=== PATIENT | female | born 1965 | race Caucasian/White ===

== ENCOUNTER 2018-05-03 15:06 | Emergency (ER) | payer SELFPAY ==
[2018-05-03 15:06] VITALS: BP 167/116; PULSE 101; RESP 22; TEMP 36.7; O2SAT 97; BMI 27.0
[2018-05-03 15:17] VITALS: RESP 18
[2018-05-03] MEDS: fentaNYL 100 MCG/2 ML Ampul 25 MCG IV (15:44)
[2018-05-03] MEDS: proMETHazine 25 MG/ML Syringe 12.5 MG IV (15:44)
[2018-05-03] MEDS: 0.9% Normal Saline 1,000 ML 999 ML IV (15:44)
--- NOTE | 2018-05-03 15:47 | ED.VISSUMM ---
- ER Visit Summary Date of Service: 05/03/18 Chief Complaint: Headache History of Present Illness: The patient is a 52 F with a history of migraines. Patient reports tightness and squeezing-like headache to the left side of her head over the past 3 days. This is similar to her prior migraines. Usually Fioricet will help but was not relieved this time. Patient recently relocated to the area does not have a primary care physician. Patient has a history of pancreatitis and cervical cancer. She is allergic to anti-inflammatories including aspirin, Toradol, and NSAIDs. Physical Examination: Vital signs significant for blood pressure 167/116, otherwise unremarkable. Patient sitting upright in a dark room. She is in no acute distress. Head neck examination reveals dry regular rate and rhythm. Lungs sounds are with mild wheezing. Abdomen is soft nontender. Neuro exam is unremarkable with no focal deficits. Test Results: [] Emergency Department Course and Treatment: Patient was given a liter IV fluids along with a dose of Phenergan and a small dose of fentanyl. On repeat examination patient feels significantly improved. Blood pressure is 150/99. Patient will be referred to Dr. Vasquez as she wishes to follow-up with someone from the [facility] locally. Treatment Plan: [] Disposition: Discharge Impression: Migraine, improved This note was generated with [employer] dictation software. It may contain incorrect words, spelling, and punctuation that were not noted in review of the chart prior to signing ED Disposition - Plan for ED Patient: Chief Complaint: Headache Referrals: Care Physician,No Primary [Primary Care Provider] -
--- NOTE | 2018-05-03 16:40 | ED.DEP ---
ED Disposition - Plan for ED Patient: Disposition: Home or Assisted Living Chief Complaint: Headache Instructions: ED Headache Migraine Referrals: Lea Vasquez MD [STAFF PHYSICIAN] - As Needed
--- NOTE | 2018-05-03 16:43 | ED.DEP ---
ED Disposition - Plan for ED Patient: Disposition: Home or Assisted Living Chief Complaint: Headache Instructions: ED Headache Migraine Prescriptions: Acetaminophen/Butalbital/Caffe [Fioricet] 1 tablet PO Q4H PRN PRN #10 tablet PRN Reason: Migraine Symptoms Referrals: Lea Vasquez MD [STAFF PHYSICIAN] - As Needed
[2018-05-03 17:02] VITALS: PULSE 84; RESP 18; O2SAT 98
== END 2018-05-03 17:02 | disposition home or self-care (01) ==
PROVIDERS: Emergency Provider Emergency Medicine
DX: G43.909 Migraine, unspecified, not intractable, without status migrainosus (principal); R06.2 Wheezing; Z72.0 Tobacco use; Z79.899 Other long term (current) drug therapy; Z85.41 Personal history of malignant neoplasm of cervix uteri; Z87.19 Personal history of other diseases of the digestive system
CPT/HCPCS: 96361; 96374; 96375; 99284; J7030; A4216

== ENCOUNTER 2019-08-11 16:44 | Emergency (ER) | payer MEDICAID, SELFPAY ==
[2019-08-11 16:45] VITALS: BP 159/114; PULSE 86; RESP 19; TEMP 36.1; O2SAT 95; BMI 29.3
--- NOTE | 2019-08-11 17:09 | EKG12_ITS ---
Test Reason : CP Blood Pressure : / mmHG Vent. Rate : 077 BPM Atrial Rate : 077 BPM P-R Int : 160 ms QRS Dur : 138 ms QT Int : 406 ms P-R-T Axes : 079 080 138 degrees QTc Int : 459 ms Sinus rhythm with Premature supraventricular complexes Left bundle branch block Abnormal ECG Confirmed by UZIEL GARZA ([id number]), film and video editor COLLEEN LR ([id number]) on 08/13/2019 10:13:24 AM Referred By: ED Confirmed By:UZIEL GARZA
--- NOTE | 2019-08-11 17:40 | RAD_ITS ---
STUDY: X-RAY CHEST REASON FOR EXAM: Female, 53 years old. Chest pain TECHNIQUE: Frontal view of the chest COMPARISON: None. FINDINGS: There is a calcified granuloma noted in the right lower lobe. The lungs are are otherwise clear. There are no pleural effusions. There is no pneumothorax. The heart is normal in size. The visualized osseous structures are within normal limits. RAD/Chest 1 View (Portable) IMPRESSION: No acute thoracic pathology. Electronically Signed: Emery العلي, at 17:51 EDT Tel , Service support ,
[2019-08-11 17:43] LABS: Absolute Lymphocyte Count 2.89 X10^3/uL (0.83-4.51); Absolute Neutrophil Count 3.6 X10^3/uL (2.0-7.7); Basophil# 0.04 X10^3/uL; Basophil% 0.6 % (0-1); Eosinophil# 0.07 X10^3/uL; Hematocrit 38.8 % (37-47); Lymphocyte # 2.89 X10^3/ul (4.0); Mean Corp Hgb Conc 33.5 g/dL (32-36); Mean Corpuscular Volume 95.6 fL (81-99); Mean Platelet Vol. 9.8 fl (6.2-12.0); Monocyte# 0.48 X10^3/uL; Monocyte% 6.8 % (0-10); NRBC Flagged by Analyzer 0 % (0-5); Neutrophil # 3.56 X10^3/uL (2.7-7.7); Neutrophil % 50.5 % (47-70); Platelet Count 246 K/mm3 (150-450); RBC Distribution Width CV 13.5 % (11.6-14.6); RBC Distribution Width SD 47.4 fl (35.1-43.9); Red Blood Count 4.06 M/mm3 (4.2-5.4); White Blood Count 7.1 K/mm3 (4.4-11.0)
[2019-08-11 18:01] LABS: Anion Gap 3 (5-15); BUN 9 mg/dL (7-18); BUN/Creat Ratio 12.6 RATIO (10-20); Calcium,Total 8.8 mg/dL (8.5-10.1); Chloride 113 mmol/L (98-107); Creatinine, Serum 0.72 mg/dL (0.55-1.02); EST Glomerular Filtration Rate 91 mL/min (>60); Est Glom Filt Rate - Afr Amer 110 mL/min (>60); Estimated Creatinine Clearance 85.56 ml/min; Glucose 98 mg/dL (74-106); Potassium 3.9 mmol/L (3.5-5.1); Sodium Level 142 mmol/L (136-145)
--- NOTE | 2019-08-11 18:42 | ED.VISSUMM ---
- ER Visit Summary Date of Service: 08/11/19 Chief Complaint: Chest pain History of Present Illness: The patient is a 53 F who presents with chest pain that began yesterday. Patient states it is gradually gotten worse. Patient describes the pain is sharp. Patient states the pain is over the left chest under her left breast. Patient states the pain goes to her left scapular area. Patient states nothing makes it better or worse. Patient admits to some nausea but denies any vomiting. Patient denies any shortness of breath or cough. Patient does admit to some diaphoresis and palpitations. Patient denies any lightheadedness or dizziness. Patient is a smoker and has a history of hypertension. Patient denies any PE risk factors. Physical Examination: Vital signs are stable. Patient is afebrile. Patient is in no acute distress. Oral mucosa is pink and moist. Neck is supple. Trachea is midline. There is no JVD noted. Heart was regular rate and rhythm. Lungs are clear and equal bilaterally. Abdomen is soft. Bowel sounds are normal. There is no tenderness. There is no rebound or guarding noted. Skin is warm dry. Cranial nerves II through XII are intact. There are no focal motor or sensory deficits noted. Extremities are intact. There is no calf tenderness or edema. Test Results: EKG showed a normal sinus rhythm with a rate of 77. There are occasional PACs noted. There is a left bundle branch block noted. There are no prior EKGs available for comparison. CBC, basic metabolic profile, and troponin were obtained were all within normal limits. Portable chest x-ray was obtained. There is no acute cardiopulmonary process. This was interpreted by the radiologist and myself. Emergency Department Course and Treatment: Patient was given injection of morphine here. Patient was feeling better on reevaluation. Patient was not given aspirin due to her aspirin allergy. Patient has a JOHN risk score of 0 and a HEART score of 3. Patient was advised that this is low risk for acute cardiac event. Patient was instructed to follow-up with her primary care physician in 5 to 7 days. Patient was instructed return if worse in any way. Patient understood and was agreeable with the plan. All questions were answered. Disposition: Discharge home Impression: Chest pain This note was generated with [employer] dictation software. It may contain incorrect words, spelling, and punctuation that were not noted in review of the chart prior to signing ED Disposition - Plan for ED Patient: Disposition: Home or Assisted Living Diagnosis: Chest pain Instructions: ED Chest Pain Atypical Unkn Cause Prescriptions: Hydrocodone Bitart/Apap 5-325 [[place] 5MG-325MG] 1 tab PO Q6H PRN PRN 3 Days #10 tab PRN Reason: Pain Prescription Printed Referrals: Florecita Nash DO [Primary Care Provider] - 5-7 Days
[2019-08-11 18:58] VITALS: BP 144/104; PULSE 80; RESP 16
[2019-08-11 18:59] VITALS: O2SAT 97
[2019-08-11 19:00] VITALS: BP 144/104; PULSE 80; RESP 16; O2SAT 97
[2019-08-11 19:05] VITALS: BP 144/104; PULSE 80; RESP 16; O2SAT 97
[2019-08-11] MEDS: Morphine 4 MG/ML Syringe IV (19:14)
== END 2019-08-11 19:33 | disposition home or self-care (01) ==
PROVIDERS: Emergency Provider Emergency Medicine; PCP Family Medicine
DX: R07.9 Chest pain, unspecified (principal); I10 Essential (primary) hypertension; K21.9 Gastro-esophageal reflux disease without esophagitis; F17.200 Nicotine dependence, unspecified, uncomplicated; Z88.6 Allergy status to analgesic agent
CPT/HCPCS: 71045; 80048; 84484; 85025; 93005; 96374; 99284; A4216

== ENCOUNTER 2020-09-15 01:16 | Inpatient (IN) | payer MEDICAID, SELFPAY ==
[2020-09-15] VITALS (60 sets, daily range): BP systolic 61–139; BP diastolic 11–107; PULSE 69–154; RESP 15–47; TEMP 36.7–38.1; O2SAT 70–99; BMI 31.8
[2020-09-15] MEDS: Etomidate 20 MG/10 ML Vial IV (01:20)
--- NOTE | 2020-09-15 01:27 | EKG12_ITS ---
Test Reason : Blood Pressure : / mmHG Vent. Rate : 143 BPM Atrial Rate : 070 BPM P-R Int : 000 ms QRS Dur : 142 ms QT Int : 368 ms P-R-T Axes : 000 097 -20 degrees QTc Int : 567 ms Wide QRS tachycardia Possibly Sinus with non specific intraventricular conduction delay Rightward axis Non-specific intra-ventricular conduction block Abnormal ECG Confirmed by LACI ELDER, KENIA ([id number]), tape editor JOSE EDUARDO VIVAS ([id number]) on 09/16/2020 11:41:49 A M Referred By: SELAM Confirmed By:LATOYA AGUERO MD
--- NOTE | 2020-09-15 01:27 | RAD_ITS ---
STUDY: X-RAY CHEST REASON FOR EXAM: Female, 54 years old. sob, ETT placement TECHNIQUE: Single AP portable view of the chest. COMPARISON: None. FINDINGS: The endotracheal tube has the tip approximately 3.7 cm above tatiana. The nasogastric tube has the tip at the level of the gastric antrum. The lungs are normally expanded with diffuse airspace opacities consistent with pulmonary edema versus diffuse pneumonia. There is a small nodule at the right lung base incompletely characterized and measuring 0.8 cm. This could represent a small calcified granuloma. There is no demonstrated pleural abnormality. Oral and cardiomegaly. Normal mediastinum and dinesh. There is atherosclerotic calcification of the aortic arch with tortuosity. Normal visualized thoracic spine. Normal visualized ribs, clavicles, and shoulders. There is no demonstrated abnormality of the visualized soft tissue structures of the upper abdomen. RAD/Chest 1 View (Portable) IMPRESSION: Findings suggestive of pulmonary edema versus diffuse pneumonia. Questionable nodular the right lung base as described. Recommend follow-up with serial x-ray on September to better visualize a nodule. If persistent, recommend further evaluation with CT chest. Electronically Signed: Ramona Mclaughlin MD at 2:40 EDT , Service support ,
--- NOTE | 2020-09-15 01:29 | ED.VIS.DYS ---
HPI History of Present Illness Chief Complaint: Chest Pain Informant: patient and EMS Limited: other (Acuity/condition) Onset/Context/Timing Onset: Days (several) Context: gradual Timing: Continuous Quality: Positive for - (can't breathe) Current Severity: Severe Maximum Severity: Severe Worsened by: Exertion and Coughing Relieved by: Nothing (despite rest, oxygen, albuterol) Associated Symptoms cough Chest Pain: Positive for Tightness Narrative Narrative: Patient with worsening COPD symptoms over the last several days, she is a 5 pack/day smoker according to EMS, they were concerned that she was very tachycardic with a wide-complex, but P waves present, low blood pressure 80/40 and mottled lower extremities, not tolerating BiPAP that they tried in route. Later, provides history that she went to a different emergency department earlier this morning for hemorrhoids and was not really having major respiratory issues, but rather just prior to arrival here, she walked to the bathroom and suddenly became severely dyspneic and diaphoretic, much worse than she had been for the last couple days. He states that she is not a 5 pack/day smoker, but only about half a pack per day. PFSH PFSH Medical History Constipation COPD (chronic obstructive pulmonary disease) COPD with asthma History of cervical cancer History of pancreatitis HLD (hyperlipidemia) HTN (hypertension) Obesity Tobacco use Home Medications albuterol sulfate 2 puff INHALATION Q4H PRN PRN 09/15/20 [History Last Taken Unknown] ondansetron HCl [Zofran] 4 mg PO Q8H PRN 09/15/20 [History Last Taken Unknown] Allergy/AdvReac Type Severity Reaction Status Date / Time ketorolac [From Toradol] AdvReac NEEDS Verified 09/15/20 02:44 FOLLOW-UP Family History (Updated 09/15/20 @ 02:[address] Krissy Hobbs MD) Mother Heart disease Hypertension Diabetes Father Heart disease Surgical History (Updated 09/15/20 @ 02:[address] Krissy Hobbs MD) H/O: hysterectomy S/P cholecystectomy Social History (Updated 09/15/20 @ 02:[address] Krissy Hobbs MD) household members: spouse Smoking Status: Current every day smoker tobacco type: cigarettes Smoking packs per day: 0.5 Smoking cigarettes per day: 10.0 Years smoked: 40 Smoking pack-years: 20.00 alcohol intake: never substance use type: does not use ROS ROS ED Review of Systems ROS Unobtainable: other Details: Due to acuity, respiratory distress --ROS very limited Cardiovascular Cardiovascular: Reports chest pain Respiratory/Chest Respiratory/Chest: Reports cough and dyspnea EXAM Physical Exam Const Vital Signs: 09/15/20 01:18 09/15/20 01:22 09/15/20 01:30 Temperature 98.7 F Temperature Source Temporal Pulse Rate 154 H 144 H 147 H Respiratory Rate 42 H 16 47 H Respiratory Pattern Normal Blood Pressure 139/11 H 129/101 H Blood Pressure Mean 53 110 Pulse Ox 97 92 92 Oxygen Delivery Method Ambu-Bag Mechanical Ventilator Room Air Oxygen Flow Rate (L/min) 15 Fraction of Inspired Oxygen (FIO2) 50 09/15/20 01:35 09/15/20 01:54 09/15/20 01:55 Temperature 98.0 F Temperature Source Temporal Pulse Rate 140 H Respiratory Rate 16 Respiratory Pattern Blood Pressure 128/107 H Blood Pressure Mean 114 Pulse Ox 92 92 Oxygen Delivery Method Mechanical Ventilator Mechanical Ventilator Oxygen Flow Rate (L/min) Fraction of Inspired Oxygen (FIO2) 60 70 Positive well nourished and well developed General Appearance ED: well developed and in distress Positive for severe and respiratory Orientation / Consciousness: awake, oriented to person, oriented to place and oriented to time HEENT Reports dry mucous membranes normocephalic and atraumatic Mouth ED: Yes dry mucous membranes Mouth: dry mucous membranes Eyes PERRL and EOMs intact bilaterally Neck full ROM, no lymphadenopathy, supple and no JVD Resp Effort and Inspection: symmetric chest movement, respiratory distress, retractions intercostal, subcostal and supraclavicular and other Asking for help, speaking in one-word sentences, agreeable to intubation ; Negative for able to speak in complete sentences Auscultation: diminished lung sounds diffuse; Negative for rales or rhonchi Cardio regular rate, regular rhythm and no murmurs Cardio Narrative: 1+ bilateral radial pulses, thready dorsalis pedis pulses but palpable, with light mottling in both lower extremities to the waist. Rate: tachycardic GI non-tender and non-distended Auscultation: normoactive bowel sounds Palpation: soft Back/Spine no CVA tenderness General Back: other FROM Extremity normal to inspection General Extremety ED: Negative for edema, pulses abnormal or tenderness General Extremity: Negative for edema or pulses abnormal Neuro oriented x3, CN's II-XII intact bilaterally and no sensory deficits noted Sensorium / Orientation: awake and alert Motor Exam: strength 5/5 throughout Psych Mood & Affect: anxious Skin no rashes or lesions noted and no wounds MDM MDM MDM Narrative Medical decision making narrative: Patient in severe respiratory distress with some signs of shock, she was intubated emergently after pretreatment/RSI with etomidate 20 mg and succinylcholine 100 mg. She was preoxygenated. There were no complications. She did appear to have some mottling in her legs, but directly after the procedure this resolved and her blood pressure was reading 130's systolic, so fluids were given gently. When chest x-ray was finally performed, on my interpretation one-view portable shows good ETT placement and what appears to be pulmonary edema on top of COPD. Therefore the fluids were held and she was given Lasix 40 mg IV, her pressure continues to be good, and her heart rate fast. Prior to this, we did perform synchronized cardioversion given the possibility that she is in ventricular tachycardia, EKG showing wide complex tachycardia difficult to appreciate any P waves, and the patient initially was registered under the wrong last name because we did not know how to spell it correctly, and we did not have any old EKG on the patient. The cardioversion did not change the patient's rhythm, therefore it is less likely that she is in ventricular tachycardia and more likely she has a pre-existing aberrancy and she is currently tachycardic because of the cardiopulmonary process that is giving her symptoms. Since she recently was hypotensive, we chose to allow her tachycardia given that it may be her compensatory mechanism to keep her from going into shock at this time. Her tachycardia gradually improved to around 130, her blood pressure remained stable throughout the ED visit despite putting her on propofol for sedation and holding IV fluids when diuretics were ordered. She was also given empiric antibiotics given her lactic acidosis and the differential including infection, to cover for the possibility of pneumonia superimposed on COPD/CHF. Will be admitted to the ICU in serious condition. Lab Data Attestation: I reviewed the patient's lab results. Labs: Laboratory Results - last 24 hr 09/15/20 09/15/20 09/15/20 01:30 01:30 01:30 WBC 13.6 H RBC 3.95 L Hgb 13.0 Hct 41.8 MCV 105.8 H MCH 32.9 H MCHC 31.1 L RDW Std Deviation 50.6 H RDW Coeff of Tony 12.8 Plt Count 243 MPV 11.6 Immature Gran % (Auto) 1.000 H Neut % (Auto) 27.8 L Lymph % (Auto) 65.1 H Carter % (Auto) 4.8 Eos % (Auto) 0.7 Baso % (Auto) 0.6 Absolute Neuts (auto) 3.8 Absolute Lymphs (auto) 8.83 H Nucleated RBC % 0 Differential Comment SCANNED PT 13.6 INR 1.1 APTT 30.6 Sodium 138 Potassium 4.6 Chloride 106 Carbon Dioxide 20.0 L Anion Gap 12 BUN 17 Creatinine 1.29 H Estim Creat Clear Calc 45.38 Est GFR (MDRD) Af Amer 55 L Est GFR (MDRD) Non-Af 46 L BUN/Creatinine Ratio 13.2 Glucose 371 H Lactic Acid Calcium 8.1 L Total Bilirubin 0.30 AST 126 H ALT 78 H Alkaline Phosphatase 109 Troponin I 0.023 B-Natriuretic Peptide Total Protein 6.5 Albumin 3.2 Globulin 3.3 Albumin/Globulin Ratio 1.0 Urine Color Urine Clarity Urine pH Ur Specific [place] Urine Protein Urine Glucose (UA) Urine Ketones Urine Occult Blood Urine Nitrite Urine Bilirubin Urine Urobilinogen Ur Leukocyte Esterase Urine RBC Urine WBC Ur Squamous Epith Cells Ur Transition Epith Cell Amorphous Sediment Urine Bacteria Fine Granular Casts Urine Mucus 09/15/20 09/15/20 09/15/20 01:30 01:30 01:55 WBC RBC Hgb Hct MCV MCH MCHC RDW Std Deviation RDW Coeff of Tony Plt Count MPV Immature Gran % (Auto) Neut % (Auto) Lymph % (Auto) Carter % (Auto) Eos % (Auto) Baso % (Auto) Absolute Neuts (auto) Absolute Lymphs (auto) Nucleated RBC % Differential Comment PT INR APTT Sodium Potassium Chloride Carbon Dioxide Anion Gap BUN Creatinine Estim Creat Clear Calc Est GFR (MDRD) Af Amer Est GFR (MDRD) Non-Af BUN/Creatinine Ratio Glucose Lactic Acid 7.6 H* Calcium Total Bilirubin AST ALT Alkaline Phosphatase Troponin I B-Natriuretic Peptide 1175.0 H Total Protein Albumin Globulin Albumin/Globulin Ratio Urine Color Yellow Urine Clarity Cloudy Urine pH 6.0 Ur Specific [place] 1.020 Urine Protein 500 H Urine Glucose (UA) 1000 H Urine Ketones Negative Urine Occult Blood 250 H Urine Nitrite Negative Urine Bilirubin Negative Urine Urobilinogen 4 H Ur Leukocyte Esterase Negative Urine RBC 10-25 SEEN Urine WBC 0-5 SEEN Ur Squamous Epith Cells Not Reportable Ur Transition Epith Cell 0-5 SEEN Amorphous Sediment 2+ Urine Bacteria 2+ Fine Granular Casts 0-5 SEEN Urine Mucus 0 SEEN ABG Data ABG results: ABG 09/15/20 02:10 Specimen Type ART Sample Site L Radial pH 7.05 L* Bicarbonate Actual 19.6 L Total CO2 22 Base Excess -11 L O2 Saturation 85 L O2 % 60 ABG pCO2 71.1 H* ABG pO2 73 L Ricky Test Positive Respiration Rate 16 O2 Delivery Device Adult Vent Vent Mode AC Tidal Volume 500 POC PEEP 5 Crit Call To/Read Back Yes Radiography Chest X-Ray - ED: 1 View, Read by ED Physician and CHF (and copd pattern) Diagnostic Testing: Radiology Impression Chest X-Ray 09/15/20 01:27 IMPRESSION: Findings suggestive of pulmonary edema versus diffuse pneumonia. Questionable nodular the right lung base as described. Recommend follow-up with serial x-ray on SEPTEMBER complete resolution to better visualize a nodule. If persistent, recommend further evaluation with CT chest. Electronically Signed: Ramona Mclaughlin MD at 2:40 EDT , Service support , EKG Initial EKG: Attestation: I personally reviewed and interpreted this EKG as follows: Comments: Wide-complex tachycardia of undetermined origin Procedures Intubations Intubation Method: orotracheal Intubation Verification: Positive color change Intubation Complications: no complications (Intubated with a 7.5 Telugu ETT, placed at 22 cm at the teeth under direct visualization with video laryngoscopy, watching the 2 pass through the cords. Equal breath sounds present bilaterally.) Other Procedures Procedure(s): Synchronized cardioversion --given wide-complex tachycardia and the differential of the EKG including ventricular tachycardia, while the patient was sedated and paralyzed, synchronized cardioversion was performed with 200 J biphasic energy. It did not change the patient's rhythm, there were no complications, she tolerated well. Critical Care Time Critical care time (excluding procedures): 30-74 minutes (35 min), Including time spent: (Not including procedures), Discussing w/Patient &/or Family/Harness Installer, Discussing w/Consultants, Arranging Admission or Transfer and Performing Direct Patient Care at Bedside Discharge Plan Dx/Rx/DC Orders Clinical Impression: COPD exacerbation, Acute CHF, Acute respiratory failure with hypoxia and hypercapnia Disposition Disposition: [facility] Discharge Date/Time: 09/15/20 03:05
[2020-09-15 01:36] LABS: Absolute Lymphocyte Count 8.83 X10^3/uL (0.83-4.51); Absolute Neutrophil Count 3.8 X10^3/uL (2.0-7.7); Basophil# 0.08 X10^3/uL; Basophil% 0.6 % (0-1); Eosinophils% 0.7 % (0-5); Hematocrit 41.8 % (37-47); Lymphocyte # 8.83 X10^3/ul (0.83-4.51); Lymphocyte % 65.1 % (19-41); Mean Corp Hgb Conc 31.1 g/dL (32-36); Mean Corpuscular Hgb 32.9 pg (27.0-32.0); Mean Corpuscular Volume 105.8 fL (81-99); Mean Platelet Vol. 11.6 fl (6.2-12.0); Monocyte# 0.65 X10^3/uL; Monocyte% 4.8 % (0-10); NRBC Flagged by Analyzer 0 % (0-5); Neutrophil # 3.78 X10^3/uL (2.7-7.7); Neutrophil % 27.8 % (47-70); POSITIVE DIFFERENTIAL YES; Platelet Count 243 K/mm3 (150-450); RBC Distribution Width CV 12.8 % (11.6-14.6); RBC Distribution Width SD 50.6 fl (35.1-43.9); Red Blood Count 3.95 M/mm3 (4.2-5.4); White Blood Count 13.6 K/mm3 (4.4-11.0)
[2020-09-15] MEDS: Propofol 10MG/Ml 1,000 MG/100 ML Bottle 5.2 MG CONT INF (01:37)
[2020-09-15 01:39] LABS: Differential Indicated SCAN CRITERIA MET
--- NOTE | 2020-09-15 01:39 | ED.RN ---
NO OLD EKGS IN MUSE
[2020-09-15 01:46] LABS: Partial Thromboplast Time 30.6 Seconds (24.1-36.2)
[2020-09-15] MEDS: Vecuronium Bromide 10 MG/10 ML Vial IV (01:47)
[2020-09-15 01:50] LABS: Differential Comment SCANNED
[2020-09-15 01:52] LABS: International Normalized Ratio 1.1; Prothrombin Time (Protime)PT. 13.6 SECONDS (11.7-14.9)
[2020-09-15 01:56] LABS: AST(SGOT) 126 U/L (15-37); Alanine Aminotransfer ALT/SGPT 78 U/L (13-56); Albumin, Serum 3.2 g/dL (3.2-5.0); Alkaline Phosphatase 109 U/L (45-117); Anion Gap 12 (5-15); BUN 17 mg/dL (7-18); BUN/Creat Ratio 13.2 RATIO (10-20); Calcium,Total 8.1 mg/dL (8.5-10.1); Chloride 106 mmol/L (98-107); Creatinine, Serum 1.29 mg/dL (0.55-1.02); EST Glomerular Filtration Rate 46 mL/min (>60); Est Glom Filt Rate - Afr Amer 55 mL/min (>60); Estimated Creatinine Clearance 45.38 ml/min; Globulin 3.3 g/dL (2.2-4.2); Glucose 371 mg/dL (74-106); Potassium 4.6 mmol/L (3.5-5.1); Protein, Total 6.5 g/dL (6.4-8.2); Sodium Level 138 mmol/L (136-145)
[2020-09-15] MEDS: MethylPREDNISolone 125 MG/2 ML Vial IV (02:02)
[2020-09-15] MEDS: 0.9% Normal Saline 1,000 ML 150 ML IV (02:03)
[2020-09-15 02:06] LABS: Lactic Acid 7.6 mmol/L (0.4-1.9)
--- NOTE | 2020-09-15 02:10 | CPS ---
Critical values on ABG. Dr. Beatty notified of critical values
[2020-09-15 02:11] LABS: Color, Urine Yellow (Yellow); Glucose, Dipstick 1000 mg/dl (Normal); Ketone-Dipstick Negative (Negative); Leukocyte Esterase-Dipstick Negative /ul (Negative); Mucous, Urine 0 SEEN /hpf (<or=2+); Nitrite-Dipstick Negative (Negative); Occult Blood-Urine 250 /ul (Negative); Protein-Dipstick 500 mg/dl (Negative); Urine Bilirubin Dipstick Negative (Negative); Urine Clarity Cloudy (Clear); Urine Urobilinogen 4 mg/dl (Normal)
--- NOTE | 2020-09-15 02:14 | HP.PCM.HOS_ITS ---
HPI - General General Date of Admission: 09/15/20 HPI Narrative The patient is a 54 y/o F w/ PMHx: HTN, HLD, Chronic COPD/Asthma, Hx cervical CA s/p hysterectomy, Hx pancreatitis, Chronic constipation with chronic abdominal pain, Migraines, Tobacco use who presents to the [facility] ED on 09/15/20 per EMS with 48 hours of worsening dyspnea, wheezing, dry cough without fever or chills, no GI symptoms and no recent ill COVID contacts although not vaccinated with significantly worsened status evening prior to ED presentation, noting to respond as she felt as though she could not breathe with perioral blue hue prompting EMS call eventual becoming mottled with thready pulses and hypotensive noted to be systolic in the 80s upon EMS initial evaluation. Patient initially attempted to be placed on BiPAP but this was unsuccessful and patient was eventually intubated. Work-up in the ED included T 98.7, heart rate initially 134, BP 139/111, respiratory rate 42, 97% on 15 L with following intubation 92% on 70% FiO2, EKG with wide complex tachycardia with trial of attempted cardioversion without any alteration, CBC with WC 13.6, hemoglobin 13, platelet 243 with increased immature granulocytes and lymphocytes, unremarkable coags, ABG pH 7.049, PCO2 71.1, PO2 72.7, CMP with carbon oxide 20, BUN/creatinine 17/1.29, glucose 371, lactic acid 7.6, AST/LT 126/78, alk phos 109, troponin 0 0.023, BNP 1175, urinalysis with specific gravity 1.020, protein 500, glucose 1000, occult blood 250, negative nitrite, negative leukocyte esterase urine RBCs 10-25, no urine WBCs, 2+ urine bacteria, CXR with appearance of congestion, UCx pending per ED, Bld Cx x 2 pending per ED, rapid COVID negative. [facility] Medical History Constipation COPD (chronic obstructive pulmonary disease) COPD with asthma History of cervical cancer History of pancreatitis HLD (hyperlipidemia) HTN (hypertension) Obesity Tobacco use Home Medications albuterol sulfate 2 puff INHALATION Q4H PRN PRN 09/15/20 [History Last Taken Unknown] ondansetron HCl [Zofran] 4 mg PO Q8H PRN 09/15/20 [History Last Taken Unknown] Allergy/AdvReac Type Severity Reaction Status Date / Time ketorolac [From Toradol] AdvReac NEEDS Verified 09/15/20 02:44 FOLLOW-UP Family History (Updated 09/15/20 @ 02:[address] Krissy Hobbs MD) Mother Heart disease Hypertension Diabetes Father Heart disease Surgical History (Updated 09/15/20 @ 02:[address] Krissy Hobbs MD) H/O: hysterectomy S/P cholecystectomy Social History (Updated 09/15/20 @ 02:[address] Krissy Hobsb MD) household members: spouse Smoking Status: Current every day smoker tobacco type: cigarettes Smoking packs per day: 0.5 Smoking cigarettes per day: 10.0 Years smoked: 40 Smoking pack- years: 20.00 alcohol intake: never substance use type: does not use ROS ROS Narrative Unable to obtain ROS secondary to intubated, sedated status but per spouse: Admission Review of Systems: CONSTITUTIONAL: No weight loss, fever, chills, + weakness or fatigue. HEENT: Eyes: No visual loss, blurred vision, double vision or yellow sclerae. Ears, Nose, Throat: No hearing loss, sneezing, congestion, runny nose or sore throat. SKIN: No rash or itching, lesions, wounds. CARDIOVASCULAR: No chest pain, chest pressure or chest discomfort, palpitations, edema, orthopnea, syncopal events. RESPIRATORY: + shortness of breath, cough without sputum, wheezing, No hemoptysis. GASTROINTESTINAL: No anorexia, nausea, vomiting or diarrhea, abdominal pain, melena, BRBPR. GENITOURINARY: No dysuria, frequency, urgency or retention. NEUROLOGICAL: + headache, No dizziness, syncope, paralysis, ataxia, numbness or tingling in the extremities, focal weakness, change in bowel or bladder control, seizure. MUSCULOSKELETAL: + muscle, back pain, joint pain or stiffness. HEMATOLOGIC: No anemia, bleeding or bruising. LYMPHATICS: No enlarged nodes. No history of splenectomy. PSYCHIATRIC: No history of depression or anxiety. ENDOCRINOLOGIC: + sweating. No cold or heat intolerance. No polyuria or polydipsia. ALLERGIES: + history of asthma, hives, eczema or rhinitis. Vital Signs Vital Signs Vital Signs: 09/15/20 01:18 09/15/20 01:22 09/15/20 01:30 Temperature 98.7 F Temperature Source Temporal Pulse Rate 154 H 147 H Respiratory Rate 42 H 47 H Blood Pressure 139/11 H 129/101 H Blood Pressure Mean 53 110 Pulse Ox 97 70 92 Oxygen Delivery Method Ambu-Bag Mechanical Ventilator Room Air Oxygen Flow Rate (L/min) 15 Fraction of Inspired Oxygen (FIO2) 09/15/20 01:54 09/15/20 01:55 Temperature 98.0 F Temperature Source Temporal Pulse Rate 140 H Respiratory Rate 16 Blood Pressure 128/107 H Blood Pressure Mean 114 Pulse Ox 92 92 Oxygen Delivery Method Mechanical Ventilator Mechanical Ventilator Oxygen Flow Rate (L/min) Fraction of Inspired Oxygen (FIO2) 70 Physical Exam Narrative Physical Examination: General: Laying in the ED bed, intubated, sedated, ETT in place, ongoing tachycardia, respiratory status improved. Skin: Normal turgor, no icterus, no cyanosis, BL upper and lower extremity mottling notably improved. HEENT: AT/NC, EOM unable to be assessed given intubated/sedated status, PERRLA, dry MM, no carotid bruits, + JVD, difficult exam given thickened neck however, ETT in place. Lungs: Diffusely diminished, occasional end expiratory wheeze, mild rales bases, intubated, sedated, symmetric rise. Heart: Tachycardic, regular rhythm; no gallop, rub audible. Abdomen: soft, obese, no grimace with palpation, ND, distant normal BS, no HSM; however, habitus makes examination difficult. Extremities: No cyanosis, clubbing, or edema, mottling improved as noted, distal pulses intact. Neurological: Laying in the ED bed, intubated, sedated, ETT in place, ongoing tachycardia, respiratory status improved; cognitive function not baseline intact; pupils equally reactive to light and accommodation, cranial nerves unable to be assessed given status, strength accordingly severely globally decreased. Psychiatric: affect appears flat, no acute evidence of depressive or anxiety feelings. Lab / Micro Data Result Diagrams: 09/15/20 01:30 09/15/20 01:30 Labs: Laboratory Results - last 24 hr 09/15/20 09/15/20 09/15/20 01:30 01:30 01:30 WBC 13.6 H RBC 3.95 L Hgb 13.0 Hct 41.8 MCV 105.8 H MCH 32.9 H MCHC 31.1 L RDW Std Deviation 50.6 H RDW Coeff of Tony 12.8 Plt Count 243 MPV 11.6 Immature Gran % (Auto) 1.000 H Neut % (Auto) 27.8 L Lymph % (Auto) 65.1 H Heard % (Auto) 4.8 Eos % (Auto) 0.7 Baso % (Auto) 0.6 Absolute Neuts (auto) 3.8 Absolute Lymphs (auto) 8.83 H Nucleated RBC % 0 Differential Comment SCANNED PT 13.6 INR 1.1 APTT 30.6 Sodium 138 Potassium 4.6 Chloride 106 Carbon Dioxide 20.0 L Anion Gap 12 BUN 17 Creatinine 1.29 H Estim Creat Clear Calc 45.38 Est GFR (MDRD) Af Amer 55 L Est GFR (MDRD) Non-Af 46 L BUN/Creatinine Ratio 13.2 Glucose 371 H Lactic Acid Calcium 8.1 L Total Bilirubin 0.30 AST 126 H ALT 78 H Alkaline Phosphatase 109 Troponin I 0.023 B-Natriuretic Peptide Total Protein 6.5 Albumin 3.2 Globulin 3.3 Albumin/Globulin Ratio 1.0 Urine Color Urine Clarity Urine pH Ur Specific Aristes Urine Protein Urine Glucose (UA) Urine Ketones Urine Occult Blood Urine Nitrite Urine Bilirubin Urine Urobilinogen Ur Leukocyte Esterase 09/15/20 09/15/20 09/15/20 01:30 01:30 01:55 WBC RBC Hgb Hct MCV MCH MCHC RDW Std Deviation RDW Coeff of Tony Plt Count MPV Immature Gran % (Auto) Neut % (Auto) Lymph % (Auto) Heard % (Auto) Eos % (Auto) Baso % (Auto) Absolute Neuts (auto) Absolute Lymphs (auto) Nucleated RBC % Differential Comment PT INR APTT Sodium Potassium Chloride Carbon Dioxide Anion Gap BUN Creatinine Estim Creat Clear Calc Est GFR (MDRD) Af Amer Est GFR (MDRD) Non-Af BUN/Creatinine Ratio Glucose Lactic Acid 7.6 H* Calcium Total Bilirubin AST ALT Alkaline Phosphatase Troponin I B-Natriuretic Peptide 1175.0 H Total Protein Albumin Globulin Albumin/Globulin Ratio Urine Color Yellow Urine Clarity Cloudy Urine pH 6.0 Ur Specific Aristes 1.020 Urine Protein 500 H Urine Glucose (UA) 1000 H Urine Ketones Negative Urine Occult Blood 250 H Urine Nitrite Negative Urine Bilirubin Negative Urine Urobilinogen 4 H Ur Leukocyte Esterase Negative Micro: Microbiology 09/15/20 01:40 SARS-CoV-2 Antigen (Rapid) - Final Interface Orders Assessment & Plan Assessment/Plan (1) Acute respiratory failure with hypoxia and hypercapnia: (2) Acute CHF: QUALIFIERS: Heart failure type: unspecified Qualified Code(s): I50.9 - Heart failure, unspecified (3) COPD exacerbation: PLAN: The patient is a 54 y/o F w/ PMHx: HTN, HLD, Chronic COPD/Asthma, Hx cervical CA s/p hysterectomy, Hx pancreatitis, Chronic constipation with chronic abdominal pain, Migraines, Tobacco use who presents to the [facility] ED on 09/15/20 per EMS with 48 hours of worsening dyspnea, wheezing, dry cough without fever or chills, no GI symptoms and no recent ill COVID contacts although not vaccinated with significantly worsened status evening prior to ED presentation, noting to respond as she felt as though she could not breathe with perioral blue hue pro mpting EMS call eventual becoming mottled with thready pulses and hypotensive noted to be systolic in the 80s upon EMS initial evaluation. 1. Acute Hypoxic and Hypercarbic Respiratory Failure, Multifactorial, Secondary to Suspected Acute Decompensated CHF, Unclear Type and concurrent Acute on Ch ronic COPD Exacerbation with severe Lactic acidosis suspected secondary to hypoxemia: Will admit to the ICU, consult surgical nurse, consult Cardiology, maintain on cardiac telemetry, obtain cardiac enzyme series, obtain serial EKGs, continue IV lasix diuresis, monitor I/Os, maintain on intake restriction, continue medical therapy w/ asa, obtain TSH and magnesium level, obtain ECHO, continue ATC duoneb therapy cautiously given tachycardia, PRN albuterol, IV solumedrol, IV rocephin/azith pending sputum Cx, respiratory viral panel and urine antigens. PRN morphine to decrease afterload, continue oxygen supplementation, if necessary will position w/ upright position with legs off bed to decrease preload. 2. Wide Complex Tachycardia: Unable to appreciate any P waves, attempted ED cardoiversion unsuccessful, initially BP low however improved following intubation there rate agent administration had been deferred, suspect secondary to #1, will continue to treat #1, Mag pending, TSH pending. 3. Hypertension: BP improved from initial presentation, initial prior to intubation hypotensive, mottled, hold on additional regimen aside IV lasix. PRN hydralazine if necessary. 4. Hyperlipidemia: FLP pending. 5. Chronic migraines: Not on regimen, no recent report of intractable migraines per spouse. 6. History of Chronic Pancreatitis: Lipase pending, abdominal exam without rebound or guarding. 7. Chronic constipation: Spouse notes chronic issues with constipation and chronic abdominal discomfort, bowel regimen added. 8. Tobacco Abuse: Encouraged cessation, inpatient consultation per RT, NR if desired. 9. History of cervical cancer: s/p hysterectomy, remission status. 10. Obesity: Weight loss and lifestyle changes encouraged. 11. DVT prophylaxis: SCDs, Lovenox. 12. CODE status: Patient does not have healthcare power of attorney lawyer nor living will set up. Discussed CODE status at length including difference between FULL code, DNR-CCA and DNR-CC status. Following discussions about the differences in these status, requested continued Full Code status. Advanced Care Planning Face to Face Time: 16 minutes. Visit Charges Inpatient E&M: 97382 Init Hosp L3 Procedures Hospitalists Procedures: 60056 Advncd Care Plan 30 Min
[2020-09-15 02:16] LABS: Allen Test Positive; Base Excess -11 mmol/L (-2 to +2); Bicarbonate 19.6 mmol/L (22-26); Blood Gas Specimen Type ART; FI02 60; Mode AC; O2 Delivery Device Adult Vent; PEEP 5; PO2 73 mmHG (75-100); RR 16; SITE L Radial; SO2 85 % (95-99); Total Carbon Dioxide 22 mmol/L; Vt 500; pCO2 71.1 mmHg (35-45); pH 7.05 (7.35-7.45)
[2020-09-15 02:18] LABS: Bacteria 2+ /hpf (None Seen)
[2020-09-15 02:19] LABS: Amorphous Sediment 2+; White Blood Cells 0-5 SEEN /hpf (0-5)
[2020-09-15 02:20] LABS: Fine Granular Cast- Urine 0-5 SEEN /lpf (0-5); Red Blood Cells-Urine 10-25 SEEN /hpf (0-5)
[2020-09-15 02:21] LABS: Transitional Epithelial - Ur 0-5 SEEN /hpf (0-5)
[2020-09-15] MEDS: Furosemide 40 MG/4 ML Vial IV (02:32)
--- NOTE | 2020-09-15 02:46 | ED.RN ---
Family called and talked to Jose A, , and he says he does not think she has allergy to meds but has had reaction of getting sick with GI sx if takes toradol.
--- NOTE | 2020-09-15 03:10 | CPS ---
Critical ABg results. Dr. Beatty notified of critical results.
[2020-09-15] MEDS: LORazepam 2 MG/ML Syringe IV (03:20)
[2020-09-15 03:21] LABS: Allen Test Positive; Base Excess -6 mmol/L (-2 to +2); Bicarbonate 22.7 mmol/L (22-26); Blood Gas Specimen Type ART; FI02 60; Mode AC; O2 Delivery Device Adult Vent; PEEP 5; PO2 59 mmHG (75-100); RR 20; SITE L Radial; SO2 82 % (95-99); Total Carbon Dioxide 25 mmol/L; Vt 550; pCO2 62.1 mmHg (35-45); pH 7.17 (7.35-7.45)
[2020-09-15 03:27] LABS: Lipase 231 U/L (73-393); Magnesium 2.5 mg/dL (1.6-2.6)
--- NOTE | 2020-09-15 03:48 | ECHOCS_ITS ---
Reason For Study: CHF Procedure This was a 2D Doppler, Color Flow transthoracic echocardiogram. The study was technically difficult. Contrast injection was performed. Exam performed portable in ICU/CCU. Left Ventricle Normal LV size. Apical thrombus noted. The estimated ejection fraction is 25 %. Stage 1 diastolic dysfunction. There is severe global hypokinesis of the left ventricle. Lexa : Akinetic. Right Ventricle Normal RV size. Normal systolic function. Atria Normal left atrium. Normal right atrium. Mitral Valve Normal mitral valve. Tricuspid Valve Normal tricuspid valve. Aortic Valve The aortic valve is not well visualized. Pulmonic Valve Normal pulmonic valve. Great Vessels Normal aortic root. The pulmonary artery is normal size. Normal inferior vena cava. Pericardium/Pleural No pericardial effusion. MMode/2D Measurements & Calculations LVIDd: 4.8 cm IVSd: 0.94 cm Ao root diam: 2.9 cm LVIDs: 4.6 cm LVPWd: 1.1 cm RVDd: 2.8 cm FS: 4.4 % LAV(MOD-sp4): 23.8 ml LVAd ap4: 37.6 cm2 LVAd ap2: 38.4 cm2 LVLd ap4: 8.7 cm LVLd ap2: 8.2 cm EDV(MOD-sp4): 135.0 ml EDV(MOD-sp2): 148.7 ml EDV(sp4-el): 138.3 ml EDV(sp2-el): 153.0 ml LVAs ap4: 31.9 cm2 LVLs ap4: 7.7 cm ESV(MOD-sp4): 107.4 ml ESV(sp4-el): 113.0 ml EF(MOD-sp4): 20.5 % EF(sp4-el): 18.3 % SV(MOD-sp4): 27.6 ml SV(sp4-el): 25.3 ml LA A4 area: 11.5 cm2 LA dimension(2D): 3.9 cm RA A4 area: 9.5 cm2 Time Measurements MV dec time: 0.19 sec Doppler Measurements & Calculations MV E max andrew: 72.9 cm/sec Lat Peak E' Andrew: 7.2 cm/sec Med Peak E' Andrew: 6.1 cm/sec MV A max andrew: 94.4 cm/sec E/E' lat: 10.2 E/E' med: 12.0 MV E/A: 0.77 Ao V2 max: 95.1 cm/sec LV V1 max: 105.4 cm/sec PA V2 max: 97.1 cm/sec Ao max P.9 mmHg LV V1 max P.4 mmHg ECHO/Echo Complete W/ Contrast Interpretation Summary Normal LV size. The estimated ejection fraction is 25 %. Stage 1 diastolic dysfunction. Apical thrombus noted Ordering Physician: Krissy Hobbs Performed By: Fiona Vincent, CORBIN, RVT
[2020-09-15 05:13] LABS: Procalcitonin 0.63 ng/mL (0.00-0.09)
[2020-09-15 05:35] LABS: Reflex Lactate? Y
--- NOTE | 2020-09-15 05:54 | PCM.RX.CS ---
Consult Pharmacy has been consulted to manage selected antiobiotic: Vancomycin Type of Consult: New start Microbiology: Microbiology 09/15/20 01:25 Urine Catheter - Wolfe Legionella Antigen - Final 09/15/20 01:25 Urine Catheter - Wolfe Streptococcus pneumoniae Antigen (M - Final 09/15/20 01:40 Interface Orders SARS-CoV-2 Antigen (Rapid) - Final Goal Trough: 15-20 mcg/mL Pharmacy Plan for Drug Dosing: Pharmacy Service will continue to monitor and adjust dosing as required. Medications Vancomycin HCl 2,000 mg/ (Sodium Chloride) 540 mls @ 250 mls/hr IV X1 ONE Stop: 09/15/20 06:39 Last Admin: 09/15/20 05:05 Dose: 250 mls/hr Documented by: Vancomycin HCl 750 mg/ Sodium (Chloride) 265 mls @ 250 mls/hr IV Q12H CONNER Follow-Up Labs: Trough Vancomycin Labs to be done on [date and time ordered]: 09/16 @ 1634
--- NOTE | 2020-09-15 05:55 | EKG12_ITS ---
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 Rate : 095 BPM Atrial Rate : 095 BPM P-R Int : 162 ms QRS Dur : 144 ms QT Int : 412 ms P-R-T Axes : 081 074 010 degrees QTc Int : 517 ms Normal sinus rhythm Left bundle branch block Abnormal ECG Confirmed by CARSON ELDER, TALI ([id number]), editor dictionary JOSE EDUARDO VIVAS ([id number]) on 09/21/2020 9:49:29 AM Referred By: SITA Confirmed By:TALI BYRD MD
--- NOTE | 2020-09-15 06:04 | CPS ---
sputum sample obtained and sent to lab @[id number]
--- NOTE | 2020-09-15 06:12 | CON.PCM.CC_ITS ---
Assessment & Plan Assessment/Plan (1) Acute respiratory failure with hypoxia and hypercapnia: PLAN: RECOMMENDATIONS: 1. Continue patient on assist control mode of mechanical ventilation. Will augment ventilator parameters to optimize ventilation. 2. Obtain repeat arterial blood gas in 1 hour. 3. Wean FiO2 to maintain oxygen saturations at or above 90%. 4. Continue empiric antimicrobials, pending infectious work-up. 5. Continue scheduled bronchodilators and IV steroids. 6. Obtain CTA chest. 7. Continue Levophed to maintain a mean arterial pressure at or above [address] PICC line today. 9. Obtain nutrition consultation for tube feed recommendations. 10. Continue appropriate ICU prophylaxis. IMPRESSIONS: 1. Acute combined respiratory failure The patient presented to the hospital with rather acute onset shortness of breath and was emergently intubated in the emergency department after she failed to respond to noninvasive positive pressure ventilatory support. The patient's ventilator parameters will be augmented this morning to optimize her ventilatory support. We will plan to obtain an arterial blood gas in 1 hour. Initial plain film chest x-ray did reveal findings concerning for diffuse bilateral pneumonia versus pulmonary edema. Therefore, the patient will be continued on empiric antimicrobials for now. In addition, given the acute nature with which the patient decompensated from a respiratory perspective, will obtain CTA chest to evaluate for PE. Continue propofol and fentanyl for sedation with a goal to maintain a RASS of -1- to 1. Plan to obtain nutrition recommendations for tube feeds and initiate today. Wean FiO2 to maintain oxygen saturations at or above 90%. Continue scheduled bronchodilator therapy and IV steroids for now. Hold Lasix for now given tenuous hemodynamics. 2. Septic shock Concern for underlying pulmonary infectious etiology. The patient did have to be started on low-dose Levophed to maintain hemodynamic stability. With this in mind, I would recommend that IV diuretic therapy be placed on hold for now. Continue broad-spectrum antimicrobials, pending infectious work-up. Wean vasopressor support to maintain a mean arterial pressure at or above 65 mmHg. 3. Chronic tobacco dependency Nicotine replacement therapy can be offered to the patient while admitted to the hospital. Unclear history of COPD and/or severity of lung disease, given lack of PFTs in our system. Continue supportive measures with scheduled bronchodilators. 4. Wide-complex tachycardia/troponin elevation Concern for demand ischemia in the setting of #1. Echocardiogram is pending. As noted above, will obtain CTA chest to evaluate for PE. 5. Hypokalemia Electrolyte repletion as ordered. Recheck levels in the morning. 6. Obesity/hypertension/hyperlipidemia/history of chronic pancreatitis Complicates care, management, recovery and prognosis. TIME: 40 minutes of critical care time, independent of procedures, was spent addressing the patient's acute combined respiratory failure, septic shock, chronic tobacco dependency, wide-complex tachycardia, troponin elevation, hypokalemia, review of all data and collaboration with the care team. ([id number]) HPI Consult Data Date of Consult: 09/15/20 HPI Narrative Reason for Consultation: Acute hypoxemic respiratory failure HPI Narrative: The patient is a 54-year-old female, with a history as outlined below, who presented to the emergency department on September 15 with shortness of breath, wheezing, cough and hypoxemia. The patient reportedly has a history of COPD and chronic tobacco dependency. However, we do not have any prior pulmonary work-up in our system to confirm this assertion. The patient currently smokes 0.5 packs of cigarettes per day. On presentation to the emergency department, the patient was noted to have a low-grade fever and was notably tachycardic and tachypneic. She was, nevertheless, hemodynamically stable. Laboratory evaluation revealed an elevated white blood cell count of 14,000. Coagulation profile was within normal limits. Initial arterial blood gas revealed a pH of 7.05 with a PCO2 of 71 and PO2 of 73. Chemistry profile was notable for a bicarbonate of 20 and creatinine of 1.29. Lactate was elevated to 7.6. BNP was elevated to 1175. Troponin was increased to 0.428. Procalcitonin was noted to be 0.63. Chest x- ray revealed diffuse interstitial opacities concerning for pulmonary edema versus pneumonia. Although BiPAP was initially tried by EMS, the patient was emergently intubated on arrival to the ED. The patient did receive some supplemental IV fluids and was placed on antimicrobials. She was subsequently admitted to the medical intensive care unit for further management. PFSH Medical History Constipation COPD (chronic obstructive pulmonary disease) COPD with asthma History of cervical cancer History of pancreatitis HLD (hyperlipidemia) HTN (hypertension) Obesity Tobacco use Home Medications albuterol sulfate 2 puff INHALATION Q4H PRN PRN 09/15/20 [History Last Taken Unknown] ondansetron HCl [Zofran] 4 mg PO Q8H PRN 09/15/20 [History Last Taken Unknown] Allergy/AdvReac Type Severity Reaction Status Date / Time ketorolac [From Toradol] AdvReac NEEDS Verified 09/15/20 02:44 FOLLOW-UP Family History Mother Heart disease Hypertension Diabetes Father Heart disease Surgical History H/O: hysterectomy S/P cholecystectomy Social History household members: spouse Smoking Status: Current every day smoker tobacco type: cigarettes Smoking packs per day: 0.5 Smoking cigarettes per day: 10.0 Years smoked: 40 Smoking pack- years: 20.00 alcohol intake: never substance use type: does not use ROS Review of Systems ROS Unobtainable: due to encephalopathy and due to endotracheal tube Physical Exam Const no apparent distress General Appearance: patient mechanically ventilated HEENT normocephalic, head/scalp atraumatic and moist oral mucous membranes Mouth: endotracheal tube in place and OG tube in place Eyes PERRL Neck supple General: trachea midline Resp Auscultation: diminished lung sounds; Negative for rales, rhonchi or wheezes Cardio regular rate and regular rhythm GI normal to inspection, nondistended, normoactive bowel sounds Extremity no clubbing, cyanosis or edema Skin no rashes or lesions noted Neuro Sensorium / Orientation: sedated on vent RASS: -1 Lab / Micro Data Result Diagrams: 09/15/20 06:30 09/15/20 05:40 Labs: Laboratory Results - last 24 hr 09/15/20 09/15/20 09/15/20 01:30 01:30 01:30 WBC 13.6 H RBC 3.95 L Hgb 13.0 Hct 41.8 MCV 105.8 H MCH 32.9 H MCHC 31.1 L RDW Std Deviation 50.6 H RDW Coeff of Tony 12.8 Plt Count 243 MPV 11.6 Immature Gran % (Auto) 1.000 H Neut % (Auto) 27.8 L Lymph % (Auto) 65.1 H [place] % (Auto) 4.8 Eos % (Auto) 0.7 Baso % (Auto) 0.6 Absolute Neuts (auto) 3.8 Absolute Lymphs (auto) 8.83 H Nucleated RBC % 0 Differential Comment SCANNED PT 13.6 INR 1.1 APTT 30.6 Sodium 138 Potassium 4.6 Chloride 106 Carbon Dioxide 20.0 L Anion Gap 12 BUN 17 Creatinine 1.29 H Estim Creat Clear Calc 45.38 Est GFR (MDRD) Af Amer 55 L Est GFR (MDRD) Non-Af 46 L BUN/Creatinine Ratio 13.2 Glucose 371 H Lactic Acid Calcium 8.1 L Magnesium Total Bilirubin 0.30 AST 126 H ALT 78 H Alkaline Phosphatase 109 Troponin I 0.023 B-Natriuretic Peptide Total Protein 6.5 Albumin 3.2 Globulin 3.3 Albumin/Globulin Ratio 1.0 Triglycerides Cholesterol LDL Cholesterol VLDL Cholesterol HDL Cholesterol Lipase Procalcitonin TSH Urine Color Urine Clarity Urine pH Ur Specific [place] Urine Protein Urine Glucose (UA) Urine Ketones Urine Occult Blood Urine Nitrite Urine Bilirubin Urine Urobilinogen Ur Leukocyte Esterase Urine RBC Urine WBC Ur Squamous Epith Cells Ur Transition Epith Cell Amorphous Sediment Urine Bacteria Fine Granular Casts Urine Mucus 09/15/20 09/15/20 09/15/20 01:30 01:30 01:30 WBC RBC Hgb Hct MCV MCH MCHC RDW Std Deviation RDW Coeff of Tony Plt Count MPV Immature Gran % (Auto) Neut % (Auto) Lymph % (Auto) [place] % (Auto) Eos % (Auto) Baso % (Auto) Absolute Neuts (auto) Absolute Lymphs (auto) Nucleated RBC % Differential Comment PT INR APTT Sodium Potassium Chloride Carbon Dioxide Anion Gap BUN Creatinine Estim Creat Clear Calc Est GFR (MDRD) Af Amer Est GFR (MDRD) Non-Af BUN/Creatinine Ratio Glucose Lactic Acid 7.6 H* Calcium Magnesium 2.5 Total Bilirubin AST ALT Alkaline Phosphatase Troponin I B-Natriuretic Peptide 1175.0 H Total Protein Albumin Globulin Albumin/Globulin Ratio Triglycerides Cholesterol LDL Cholesterol VLDL Cholesterol HDL Cholesterol Lipase 231 Procalcitonin TSH Urine Color Urine Clarity Urine pH Ur Specific [place] Urine Protein Urine Glucose (UA) Urine Ketones Urine Occult Blood Urine Nitrite Urine Bilirubin Urine Urobilinogen Ur Leukocyte Esterase Urine RBC Urine WBC Ur Squamous Epith Cells Ur Transition Epith Cell Amorphous Sediment Urine Bacteria Fine Granular Casts Urine Mucus 09/15/20 09/15/20 09/15/20 01:55 04:35 04:35 WBC RBC Hgb Hct MCV MCH MCHC RDW Std Deviation RDW Coeff of Tony Plt Count MPV Immature Gran % (Auto) Neut % (Auto) Lymph % (Auto) [place] % (Auto) Eos % (Auto) Baso % (Auto) Absolute Neuts (auto) Absolute Lymphs (auto) Nucleated RBC % Differential Comment PT INR APTT Sodium Cancelled Potassium Cancelled Chloride Cancelled Carbon Dioxide Cancelled Anion Gap Cancelled BUN Cancelled Creatinine Cancelled Estim Creat Clear Calc Cancelled Est GFR (MDRD) Af Amer Cancelled Est GFR (MDRD) Non-Af Cancelled BUN/Creatinine Ratio Cancelled Glucose Cancelled Lactic Acid Calcium Cancelled Magnesium Total Bilirubin Cancelled AST Cancelled ALT Cancelled Alkaline Phosphatase Cancelled Troponin I B-Natriuretic Peptide Total Protein Cancelled Albumin Cancelled Globulin Cancelled Albumin/Globulin Ratio Cancelled Triglycerides Cancelled Cholesterol Cancelled LDL Cholesterol Cancelled VLDL Cholesterol Cancelled HDL Cholesterol Cancelled Lipase Procalcitonin 0.63 H TSH Cancelled Urine Color Yellow Urine Clarity Cloudy Urine pH 6.0 Ur Specific [place] 1.020 Urine Protein 500 H Urine Glucose (UA) 1000 H Urine Ketones Negative Urine Occult Blood 250 H Urine Nitrite Negative Urine Bilirubin Negative Urine Urobilinogen 4 H Ur Leukocyte Esterase Negative Urine RBC 10-25 SEEN Urine WBC 0-5 SEEN Ur Squamous Epith Cells Not Reportable Ur Transition Epith Cell 0-5 SEEN Amorphous Sediment 2+ Urine Bacteria 2+ Fine Granular Casts 0-5 SEEN Urine Mucus 0 SEEN 09/15/20 04:35 WBC RBC Hgb Hct MCV MCH MCHC RDW Std Deviation RDW Coeff of Tony Plt Count MPV Immature Gran % (Auto) Neut % (Auto) Lymph % (Auto) [place] % (Auto) Eos % (Auto) Baso % (Auto) Absolute Neuts (auto) Absolute Lymphs (auto) Nucleated RBC % Differential Comment PT INR APTT Sodium Potassium Chloride Carbon Dioxide Anion Gap BUN Creatinine Estim Creat Clear Calc Est GFR (MDRD) Af Amer Est GFR (MDRD) Non-Af BUN/Creatinine Ratio Glucose Lactic Acid Calcium Magnesium Total Bilirubin AST ALT Alkaline Phosphatase Troponin I 0.428 H B-Natriuretic Peptide Total Protein Albumin Globulin Albumin/Globulin Ratio Triglycerides Cholesterol LDL Cholesterol VLDL Cholesterol HDL Cholesterol Lipase Procalcitonin TSH Urine Color Urine Clarity Urine pH Ur Specific [place] Urine Protein Urine Glucose (UA) Urine Ketones Urine Occult Blood Urine Nitrite Urine Bilirubin Urine Urobilinogen Ur Leukocyte Esterase Urine RBC Urine WBC Ur Squamous Epith Cells Ur Transition Epith Cell Amorphous Sediment Urine Bacteria Fine Granular Casts Urine Mucus Micro: Microbiology 09/15/20 01:25 Legionella Antigen - Final Urine Catheter - Wol[place] Streptococcus pneumoniae Antigen (M - Final 09/15/20 01:40 SARS-CoV-2 Antigen (Rapid) - Final Interface Orders ABG Data ABG results: ABG 09/15/20 09/15/20 02:10 03:15 Specimen Type ART ART Sample Site L Radial L Radial pH 7.05 L* 7.17 L* Bicarbonate Actual 19.6 L 22.7 Total CO2 22 25 Base Excess -11 L -6 L O2 Saturation 85 L 82 L O2 % 60 60 ABG pCO2 71.1 H* 62.1 H ABG pO2 73 L 59 L Ricky Test Positive Positive Respiration Rate 16 20 O2 Delivery Device Adult Vent Adult Vent Vent Mode AC AC Tidal Volume 500 550 POC PEEP 5 5 Crit Call To/Read Back Yes Yes Radiology Impression Chest X-Ray 09/15/20 01:27 IMPRESSION: Findings suggestive of pulmonary edema versus diffuse pneumonia. Questionable nodular the right lung base as described. Recommend follow-up with serial x-ray on SEPTEMBER complete resolution to better visualize a nodule. If persistent, recommend further evaluation with CT chest. Electronically Signed: Ramona Mclaughlin MD at 2:40 EDT , Service support , Charges/Coding Procedures Hospitalists Procedures: [id number] Critial Care 1st Hr
[2020-09-15 06:32] LABS: AST(SGOT) 172 U/L (15-37); Alanine Aminotransfer ALT/SGPT 95 U/L (13-56); Albumin, Serum 2.6 g/dL (3.2-5.0); Alkaline Phosphatase 123 U/L (45-117); Anion Gap 7 (5-15); BUN 18 mg/dL (7-18); BUN/Creat Ratio 20.9 RATIO (10-20); Calcium,Total 6.3 mg/dL (8.5-10.1); Chloride 115 mmol/L (98-107); Cholesterol 123 mg/dL (200); Creatinine, Serum 0.86 mg/dL (0.55-1.02); EST Glomerular Filtration Rate 73 mL/min (>60); Est Glom Filt Rate - Afr Amer 88 mL/min (>60); Estimated Creatinine Clearance 65.33 ml/min; Globulin 2.5 g/dL (2.2-4.2); Glucose 76 mg/dL (74-106); High Density Lipoprotein 32 mg/dL; Potassium 3.3 mmol/L (3.5-5.1); Protein, Total 5.1 g/dL (6.4-8.2); Sodium Level 144 mmol/L (136-145); Thyroid Stim Hormone (TSH) 1.29 uIU/mL (0.358-3.74); Triglycerides 118 mg/dL; Very Low Density Lipoprotein 24 mg/dL (5-40)
[2020-09-15] MEDS: Ipratropium/Albuterol Sulfate 3 ML AMPUL.NEB INHALATION ×5 (06:45→23:39)
[2020-09-15 06:50] LABS: Bedside Glucose 103 mg/dL (70-110)
[2020-09-15 06:51] LABS: Absolute Lymphocyte Count 0.89 X10^3/uL (0.83-4.51); Absolute Neutrophil Count 10.7 X10^3/uL (2.0-7.7); Basophil# 0.01 X10^3/uL; Basophil% 0.1 % (0-1); Hematocrit 32.8 % (37-47); Hemoglobin 10.4 g/dL (12.0-15.0); Lymphocyte # 0.89 X10^3/ul (0.83-4.51); Lymphocyte % 7.2 % (19-41); Mean Corp Hgb Conc 31.7 g/dL (32-36); Mean Corpuscular Hgb 32.6 pg (27.0-32.0); Mean Corpuscular Volume 102.8 fL (81-99); Mean Platelet Vol. 11.1 fl (6.2-12.0); Monocyte# 0.53 X10^3/uL; Monocyte% 4.3 % (0-10); NRBC Flagged by Analyzer 0 % (0-5); Neutrophil # 10.71 X10^3/uL (2.7-7.7); POSITIVE MORPHOLOGY YES; Platelet Count 204 K/mm3 (150-450); RBC Distribution Width CV 12.9 % (11.6-14.6); RBC Distribution Width SD 49.2 fl (35.1-43.9); Red Blood Count 3.19 M/mm3 (4.2-5.4); White Blood Count 12.3 K/mm3 (4.4-11.0)
--- NOTE | 2020-09-15 06:53 | CT_ITS ---
STUDY: CTA CHEST REASON FOR EXAM: Female, 54 years old. Respiratory Failure RADIATION DOSAGE (If Supplied By Facility): CTDIvol = ( 15.78 ) mGy, DLP = ( 467.68 ) mGycm TECHNIQUE: The examination was performed with the intravenous administration of IV 100mL Isovue-370. Post-processing of the angiographic images was performed, with multiplanar reformation and 3D reconstruction. Individualized dose optimization techniques were used for this CT. COMPARISON: None. FINDINGS: Evaluation for pulmonary metastasis significantly limited due to poor contrast bolus, patient motion and streak artifact due to the patient''s arms being at her sides. There is no central or proximal segmental pulmonary embolus. The distal segmental and subsegmental branches are not adequately evaluated. There is no thoracic aortic aneurysm. The contrast bolus is insufficient to evaluate for thoracic aortic dissection. There is an endotracheal tube noted with its tip approximately 2 cm above the tatiana. There is an enteric tube noted with its tip in the stomach. There are moderate emphysematous changes noted in the lungs. There are bilateral lower lobe infiltrates. There are small bilateral pleural effusions. There is no pneumothorax. Images through the upper abdomen demonstrate no significant abnormality. There are no destructive osseous lesions. CT/CTA Chest W/WO Contrast IMPRESSION: Significantly limited exam. No central or proximal segmental pulmonary embolus. Bilateral lower lobe infiltrates. Small bilateral pleural effusions. Electronically Signed: Emery العلي MD at 9:09 EDT Tel , Service support ,
[2020-09-15 06:55] LABS: Differential Indicated SCAN CRITERIA MET
[2020-09-15 07:27] LABS: Differential Comment SCANNED; Hypersegmented Neutrophils RARE
--- NOTE | 2020-09-15 07:27 | CON.PCM.CA_ITS ---
Assessment & Plan Assessment/Plan (1) Acute CHF: QUALIFIERS: Heart failure type: unspecified Qualified Code(s): I50.9 - Heart failure, unspecified PLAN: Patient is noted to present with shortness of breath and a markedly elevated natruretic peptide level with chest x-ray changes consistent with congestive heart failure. It is unclear at this time whether this is systolic or diastolic. Would recommend an echocardiogram to assess her ventricular function. She would also need to be diuresed as blood pressure would tolerate. Depending on those findings further recommendations will then be made as to further therapy. * Continue to cycle cardiac enzymes to exclude obstructive coronary disease. (2) Wide QRS ventricular tachycardia: PLAN: She does have a wide QRS tachycardia which at a young age and with her presentation suggest that she may have an underlying cardiomyopathy. * Would like to obtain the echocardiogram to assess her ventricular function and depending on the findings further recommendations will be made. * This may at some point to include an evaluation of her coronary anatomy to exclude obstructive coronary disease. * Would recommend continuing with supportive therapy at this time. HPI Consult Data Date of Consult: 09/15/20 HPI Narrative Reason for Consultation: Shortness of breath HPI Narrative: TABITHA FISH, is a 54 F who presents to the emergency room with shortness of breath wheezing cough and hypoxemia. Patient apparently has a history of obstructive lung disease. She denied any chest pain prior to presentation. In the emergency room she was noted to have a low-grade fever, was tachycardic and tachypneic. She was noted to be in a wide-complex tachycardia. Attempts were made initially to cardiovert her out of this rhythm of which were unsuccessful. She was subsequently noted to be hypotensive and had difficulty breathing and she was intubated. Natruretic peptide was elevated and troponin was also mildly elevated. EKG demonstrated a wide-complex tachycardia with a rate of approximately 140 bpm. She subsequently has converted to a sinus rhythm with a rate of 91 bpm and a wide QRS. She is currently intubated and history is obtained from the chart. [facility] Medical History Constipation COPD (chronic obstructive pulmonary disease) COPD with asthma History of cervical cancer History of pancreatitis HLD (hyperlipidemia) HTN (hypertension) Obesity Tobacco use Home Medications albuterol sulfate 2 puff INHALATION Q4H PRN PRN 09/15/20 [History Last Taken Unknown] ondansetron HCl [Zofran] 4 mg PO Q8H PRN 09/15/20 [History Last Taken Unknown] Allergy/AdvReac Type Severity Reaction Status Date / Time ketorolac [From Toradol] AdvReac NEEDS Verified 09/15/20 02:44 FOLLOW-UP Family History Mother Heart disease Hypertension Diabetes Father Heart disease Surgical History H/O: hysterectomy S/P cholecystectomy Social History household members: spouse Smoking Status: Current every day smoker tobacco type: cigarettes Smoking packs per day: 0.5 Smoking cigarettes per day: 10.0 Years smoked: 40 Smoking pack- years: 20.00 alcohol intake: never substance use type: does not use ROS Constitutional Constitutional: Reports as per HPI Eyes Eyes: Reports as per HPI ENT HEENT: Reports as per HPI Cardiovascular Cardiovascular: Reports as per HPI Respiratory/Chest Respiratory/Chest: Reports dyspnea and dyspnea on exertion Gastrointestinal Gastrointestinal: Reports as per HPI Genitourinary Genitourinary: Reports as per HPI Musculoskeletal Musculoskeletal: Reports as per HPI Integumentary Integumentary: Reports as per HPI Neurologic Neurologic: Reports as per HPI Psychiatric Psychiatric: Reports as per HPI Endocrine Endocrinology: Reports as per HPI Physical Exam Const oriented x3 and healthy appearing Orientation / Consciousness: awake HEENT normocephalic Eyes PERRL and conjunctivae normal Neck supple, no JVD and no carotid bruits Chest inspection of chest normal Resp normal respiratory effort and clear to auscultation bilaterally Cardio Palpation: normal PMI Rate: regular rate Rhythm: regular rhythm Heart Sounds: S1 normal and S2 normal Peripheral Pulses: pulses 2+ throughout GI normal to inspection, nondistended, normoactive bowel sounds Extremity normal to inspection and no clubbing, cyanosis or edema Psych mental status grossly normal
[2020-09-15 07:28] LABS: Macrocytosis 1+; Red Cell Morphology N CHROM NORMAL (NORM C&C)
[2020-09-15 07:55] LABS: Allen Test Positive; Base Excess -4 mmol/L (-2 to +2); Bicarbonate 22.2 mmol/L (22-26); Blood Gas Specimen Type ART; FI02 50; Mode AC; O2 Delivery Device Adult Vent; PEEP 8; PO2 88 mmHG (75-100); RR 16; SITE R Radial; SO2 96 % (95-99); Total Carbon Dioxide 24 mmol/L; Vt 500; pCO2 42.2 mmHg (35-45); pH 7.33 (7.35-7.45)
[2020-09-15 07:56] LABS: M R Staph aureus DNA By PCR Negative (Negative); Probe Check PASS; Specimen Processing Control PASS
[2020-09-15 08:45] LABS: Hemoglobin A1c 5.4 % (3.8-5.6)
--- NOTE | 2020-09-15 09:20 | PCM.NTREPORT ---
Nutrition Therapy Report - History Nutrition Services has been consulted to:: Manage nutrient details of diet order, Manage enteral nutrition Current diet / nutrition support order:: NPO - Anthropometric Measurements Height:: 5 ft 4.96 in Weight:: 86.6 kg Body Mass Index (BMI):: 31.8 - Relevant Labs Relevant Labs:: WBC 12.3 K/mm3 (4.4-11.0) H 09/15/20 06:30 RBC 3.19 M/mm3 (4.2-5.4) L 09/15/20 06:30 Hgb 10.4 g/dL (12.0-15.0) L 09/15/20 06:30 Hct 32.8 % (37-47) L 09/15/20 06:30 MCV 102.8 fL (81-99) H 09/15/20 06:30 MCH 32.6 pg (27.0-32.0) H 09/15/20 06:30 MCHC 31.7 g/dL (32-36) L 09/15/20 06:30 RDW Std Deviation 49.2 fl (35.1-43.9) H 09/15/20 06:30 Immature Gran % (Auto) 1.400 % (0.0-0.9) H 09/15/20 06:30 Neut % (Auto) 87.0 % (47-70) H 09/15/20 06:30 Lymph % (Auto) 7.2 % (19-41) L 09/15/20 06:30 Absolute Neuts (auto) 10.7 X10^3/uL (2.0-7.7) H 09/15/20 06:30 Absolute Lymphs (auto) 8.83 X10^3/uL (0.83-4.51) H 09/15/20 01:30 Potassium 3.3 mmol/L (3.5-5.1) L 09/15/20 05:40 Chloride 115 mmol/L (98-107) H 09/15/20 05:40 Carbon Dioxide 20.0 mmol/L (21.0-32.0) L 09/15/20 01:30 Creatinine 1.29 mg/dL (0.55-1.02) H 09/15/20 01:30 Est GFR (MDRD) Af Amer 55 mL/min (>60) L 09/15/20 01:30 Est GFR (MDRD) Non-Af 46 mL/min (>60) L 09/15/20 01:30 BUN/Creatinine Ratio 20.9 RATIO (10-20) H 09/15/20 05:40 Glucose 371 mg/dL (74-106) H 09/15/20 01:30 Lactic Acid 7.6 mmol/L (0.4-1.9) H* 09/15/20 01:30 Calcium 6.3 mg/dL (8.5-10.1) L* 09/15/20 05:40 AST 172 U/L (15-37) H 09/15/20 05:40 ALT 95 U/L (13-56) H 09/15/20 05:40 Alkaline Phosphatase 123 U/L (45-117) H 09/15/20 05:40 Troponin I 0.763 ng/mL (<0.045) H* 09/15/20 08:05 B-Natriuretic Peptide 1175.0 pg/mL (0-100) H 09/15/20 01:30 Total Protein 5.1 g/dL (6.4-8.2) L 09/15/20 05:40 Albumin 2.6 g/dL (3.2-5.0) L 09/15/20 05:40 HDL Cholesterol 32 mg/dL (40-) L 09/15/20 05:40 Procalcitonin 0.63 ng/mL (0.00-0.09) H 09/15/20 04:35 - Assessment Food / Nutrition-Related History:: Currently intubated. OGT in place. Per ethan munoz for enteral nutrition support this date. Unknown wt hx- none available in EMR. - Nutrition Diagnosis Problem / Etiology / Signs & Symptoms (PES):: inadequate oral intake r/t resp. failure as evidenced by NPO status d/t mechanical intubation. Evidence of Malnutrition Exists:: No - Food / Nutrient Delivery Interventions Summary of nutrition intervention:: Will order enteral nutrition support. Nutrition support ordered as / adjusted to:: via OGT- Vital AF 1.2 at goal rate of 60mL/hour w/ 100mL H2O flush every 4 hours to provide 1728 calories, 108 g protein, and 1767mL total fluid/day. Would start at 15mL/hour and increase by 15mL/hour every 8-12 hours as tolerated until goal rate achieved. - MNT Monitoring Further MNT monitoring and evaluation required?: Yes MNT Follow-up in:: 1-2 days
[2020-09-15] MEDS: Enoxaparin 100 MG/ML Syringe 90 MG SC ×2 (09:29→17:29)
[2020-09-15] MEDS: 0.9% Saline Lock 10 ML Syringe IV ×2 (09:30→13:26)
[2020-09-15] MEDS: TITRATION PARAMETER CHANGE 1 EACH IV (09:30)
[2020-09-15] MEDS: Aspirin 81 MG TAB.CHEW PO (09:30)
[2020-09-15] MEDS: Polyethylene Glycol 3350 17 GM PACKET PO (09:30)
[2020-09-15] MEDS: Chlorhexidine 15 ML PO ×2 (09:31→20:02)
[2020-09-15] MEDS: Propofol 10MG/Ml 1,000 MG/100 ML Bottle 7.8 MG CONT INF ×2 (09:36→20:02)
[2020-09-15] MEDS: Potassium Chloride 10mEq/100mL 10 MEQ/100 ML IV.SOLN. 100 MEQ IV BOLUS ×4 (10:23→14:30)
[2020-09-15 11:21] LABS: Bedside Glucose 140 mg/dL (70-110)
[2020-09-15] MEDS: Vital AF 1.2 Cal Liquid 1,000 ML 60 ML GT (11:33)
[2020-09-15 12:15] LABS: Pathologist Review Reviewed
--- NOTE | 2020-09-15 15:37 | PCM.PN.HOSP ---
Subjective Subjective Patient was seen and examined today, she is on the ventilator at this time and minimally sedated. I talked with pulmonary medicine briefly about her care. Objective Data Objective Data Vital Signs: Vital Signs Temp Pulse Resp BP Pulse Ox 99.6 F H 88 18 91/67 96 09/15/20 14:04 09/15/20 15:05 09/15/20 15:05 09/15/20 15:00 09/15/20 15:05 Oxygen Flow Rate (L/min) 15 Oxygen Delivery Method Mechanical Ventilator Weight: 86.6 kg Body Mass Index (BMI) 31.8 Intake & Output: Intake and Output for Last 24 Hours 09/13/20 09/14/20 09/15/20 23:59 23:59 23:59 Intake Total 2477.62 / 2477.62 Output Total 1750 / 1750 Balance 727.62 / 727.62 Lab / Micro Data Result Diagrams: 09/15/20 06:30 09/15/20 05:40 Labs: Laboratory Results - last 24 hr 09/15/20 09/15/20 09/15/20 01:30 01:30 01:30 WBC 13.6 H RBC 3.95 L Hgb 13.0 Hct 41.8 MCV 105.8 H MCH 32.9 H MCHC 31.1 L RDW Std Deviation 50.6 H RDW Coeff of Tony 12.8 Plt Count 243 MPV 11.6 Immature Gran % (Auto) 1.000 H Neut % (Auto) 27.8 L Lymph % (Auto) 65.1 H Hale % (Auto) 4.8 Eos % (Auto) 0.7 Baso % (Auto) 0.6 Absolute Neuts (auto) 3.8 Absolute Lymphs (auto) 8.83 H Nucleated RBC % 0 Differential Comment SCANNED Diff Path Review Hypersegmented Neuts RBC Morphology Macrocytosis PT 13.6 INR 1.1 APTT 30.6 Sodium 138 Potassium 4.6 Chloride 106 Carbon Dioxide 20.0 L Anion Gap 12 BUN 17 Creatinine 1.29 H Estim Creat Clear Calc 45.38 Est GFR (MDRD) Af Amer 55 L Est GFR (MDRD) Non-Af 46 L BUN/Creatinine Ratio 13.2 Glucose 371 H Hemoglobin A1c Lactic Acid Calcium 8.1 L Magnesium Total Bilirubin 0.30 AST 126 H ALT 78 H Alkaline Phosphatase 109 Troponin I 0.023 B-Natriuretic Peptide Total Protein 6.5 Albumin 3.2 Globulin 3.3 Albumin/Globulin Ratio 1.0 Triglycerides Cholesterol LDL Cholesterol VLDL Cholesterol HDL Cholesterol Lipase Procalcitonin TSH Urine Color Urine Clarity Urine pH Ur Specific [place] Urine Protein Urine Glucose (UA) Urine Ketones Urine Occult Blood Urine Nitrite Urine Bilirubin Urine Urobilinogen Ur Leukocyte Esterase Urine RBC Urine WBC Ur Squamous Epith Cells Ur Transition Epith Cell Amorphous Sediment Urine Bacteria Fine Granular Casts Urine Mucus MRSA (PCR) POC Glucose 09/15/20 09/15/20 09/15/20 01:30 01:30 01:30 WBC RBC Hgb Hct MCV MCH MCHC RDW Std Deviation RDW Coeff of Tony Plt Count MPV Immature Gran % (Auto) Neut % (Auto) Lymph % (Auto) Hale % (Auto) Eos % (Auto) Baso % (Auto) Absolute Neuts (auto) Absolute Lymphs (auto) Nucleated RBC % Differential Comment Diff Path Review Hypersegmented Neuts RBC Morphology Macrocytosis PT INR APTT Sodium Potassium Chloride Carbon Dioxide Anion Gap BUN Creatinine Estim Creat Clear Calc Est GFR (MDRD) Af Amer Est GFR (MDRD) Non-Af BUN/Creatinine Ratio Glucose Hemoglobin A1c Lactic Acid 7.6 H* Calcium Magnesium 2.5 Total Bilirubin AST ALT Alkaline Phosphatase Troponin I B-Natriuretic Peptide 1175.0 H Total Protein Albumin Globulin Albumin/Globulin Ratio Triglycerides Cholesterol LDL Cholesterol VLDL Cholesterol HDL Cholesterol Lipase 231 Procalcitonin TSH Urine Color Urine Clarity Urine pH Ur Specific [place] Urine Protein Urine Glucose (UA) Urine Ketones Urine Occult Blood Urine Nitrite Urine Bilirubin Urine Urobilinogen Ur Leukocyte Esterase Urine RBC Urine WBC Ur Squamous Epith Cells Ur Transition Epith Cell Amorphous Sediment Urine Bacteria Fine Granular Casts Urine Mucus MRSA (PCR) POC Glucose 09/15/20 09/15/20 09/15/20 01:55 04:05 04:35 WBC RBC Hgb Hct MCV MCH MCHC RDW Std Deviation RDW Coeff of Tony Plt Count MPV Immature Gran % (Auto) Neut % (Auto) Lymph % (Auto) Hale % (Auto) Eos % (Auto) Baso % (Auto) Absolute Neuts (auto) Absolute Lymphs (auto) Nucleated RBC % Differential Comment Diff Path Review Hypersegmented Neuts RBC Morphology Macrocytosis PT INR APTT Sodium Potassium Chloride Carbon Dioxide Anion Gap BUN Creatinine Estim Creat Clear Calc Est GFR (MDRD) Af Amer Est GFR (MDRD) Non-Af BUN/Creatinine Ratio Glucose Hemoglobin A1c Lactic Acid Calcium Magnesium Total Bilirubin AST ALT Alkaline Phosphatase Troponin I B-Natriuretic Peptide Total Protein Albumin Globulin Albumin/Globulin Ratio Triglycerides Cholesterol LDL Cholesterol VLDL Cholesterol HDL Cholesterol Lipase Procalcitonin 0.63 H TSH Urine Color Yellow Urine Clarity Cloudy Urine pH 6.0 Ur Specific [place] 1.020 Urine Protein 500 H Urine Glucose (UA) 1000 H Urine Ketones Negative Urine Occult Blood 250 H Urine Nitrite Negative Urine Bilirubin Negative Urine Urobilinogen 4 H Ur Leukocyte Esterase Negative Urine RBC 10-25 SEEN Urine WBC 0-5 SEEN Ur Squamous Epith Cells Not Reportable Ur Transition Epith Cell 0-5 SEEN Amorphous Sediment 2+ Urine Bacteria 2+ Fine Granular Casts 0-5 SEEN Urine Mucus 0 SEEN MRSA (PCR) Negative POC Glucose 09/15/20 09/15/20 09/15/20 04:35 04:35 05:40 WBC RBC Hgb Hct MCV MCH MCHC RDW Std Deviation RDW Coeff of Tony Plt Count MPV Immature Gran % (Auto) Neut % (Auto) Lymph % (Auto) Hale % (Auto) Eos % (Auto) Baso % (Auto) Absolute Neuts (auto) Absolute Lymphs (auto) Nucleated RBC % Differential Comment Diff Path Review Hypersegmented Neuts RBC Morphology Macrocytosis PT INR APTT Sodium Cancelled Potassium Cancelled Chloride Cancelled Carbon Dioxide Cancelled Anion Gap Cancelled BUN Cancelled Creatinine Cancelled Estim Creat Clear Calc Cancelled Est GFR (MDRD) Af Amer Cancelled Est GFR (MDRD) Non-Af Cancelled BUN/Creatinine Ratio Cancelled Glucose Cancelled Hemoglobin A1c Lactic Acid 1.0 Calcium Cancelled Magnesium Total Bilirubin Cancelled AST Cancelled ALT Cancelled Alkaline Phosphatase Cancelled Troponin I 0.428 H B-Natriuretic Peptide Total Protein Cancelled Albumin Cancelled Globulin Cancelled Albumin/Globulin Ratio Cancelled Triglycerides Cancelled Cholesterol Cancelled LDL Cholesterol Cancelled VLDL Cholesterol Cancelled HDL Cholesterol Cancelled Lipase Procalcitonin TSH Cancelled Urine Color Urine Clarity Urine pH Ur Specific [place] Urine Protein Urine Glucose (UA) Urine Ketones Urine Occult Blood Urine Nitrite Urine Bilirubin Urine Urobilinogen Ur Leukocyte Esterase Urine RBC Urine WBC Ur Squamous Epith Cells Ur Transition Epith Cell Amorphous Sediment Urine Bacteria Fine Granular Casts Urine Mucus MRSA (PCR) POC Glucose 09/15/20 09/15/20 09/15/20 05:40 06:22 06:30 WBC 12.3 H RBC 3.19 L Hgb 10.4 L Hct 32.8 L MCV 102.8 H MCH 32.6 H MCHC 31.7 L RDW Std Deviation 49.2 H RDW Coeff of Tony 12.9 Plt Count 204 MPV 11.1 Immature Gran % (Auto) 1.400 H Neut % (Auto) 87.0 H Lymph % (Auto) 7.2 L Hale % (Auto) 4.3 Eos % (Auto) 0.0 Baso % (Auto) 0.1 Absolute Neuts (auto) 10.7 H Absolute Lymphs (auto) 0.89 Nucleated RBC % 0 Differential Comment SCANNED Diff Path Review Reviewed Hypersegmented Neuts RARE RBC Morphology N CHROM Macrocytosis 1+ PT INR APTT Sodium 144 Potassium 3.3 L Chloride 115 H Carbon Dioxide 22.0 Anion Gap 7 BUN 18 Creatinine 0.86 Estim Creat Clear Calc 65.33 Est GFR (MDRD) Af Amer 88 Est GFR (MDRD) Non-Af 73 BUN/Creatinine Ratio 20.9 H Glucose 76 Hemoglobin A1c Lactic Acid Calcium 6.3 L* Magnesium Total Bilirubin 0.70 AST 172 H ALT 95 H Alkaline Phosphatase 123 H Troponin I B-Natriuretic Peptide Total Protein 5.1 L Albumin 2.6 L Globulin 2.5 Albumin/Globulin Ratio 1.0 Triglycerides 118 Cholesterol 123 LDL Cholesterol 67 VLDL Cholesterol 24 HDL Cholesterol 32 L Lipase Procalcitonin TSH 1.29 Urine Color Urine Clarity Urine pH Ur Specific [place] Urine Protein Urine Glucose (UA) Urine Ketones Urine Occult Blood Urine Nitrite Urine Bilirubin Urine Urobilinogen Ur Leukocyte Esterase Urine RBC Urine WBC Ur Squamous Epith Cells Ur Transition Epith Cell Amorphous Sediment Urine Bacteria Fine Granular Casts Urine Mucus MRSA (PCR) POC Glucose 103 09/15/20 09/15/20 09/15/20 06:30 08:05 11:05 WBC RBC Hgb Hct MCV MCH MCHC RDW Std Deviation RDW Coeff of Tony Plt Count MPV Immature Gran % (Auto) Neut % (Auto) Lymph % (Auto) Hale % (Auto) Eos % (Auto) Baso % (Auto) Absolute Neuts (auto) Absolute Lymphs (auto) Nucleated RBC % Differential Comment Diff Path Review Hypersegmented Neuts RBC Morphology Macrocytosis PT INR APTT Sodium Potassium Chloride Carbon Dioxide Anion Gap BUN Creatinine Estim Creat Clear Calc Est GFR (MDRD) Af Amer Est GFR (MDRD) Non-Af BUN/Creatinine Ratio Glucose Hemoglobin A1c 5.4 Lactic Acid Calcium Magnesium Total Bilirubin AST ALT Alkaline Phosphatase Troponin I 0.763 H* 0.601 H* B-Natriuretic Peptide Total Protein Albumin Globulin Albumin/Globulin Ratio Triglycerides Cholesterol LDL Cholesterol VLDL Cholesterol HDL Cholesterol Lipase Procalcitonin TSH Urine Color Urine Clarity Urine pH Ur Specific [place] Urine Protein Urine Glucose (UA) Urine Ketones Urine Occult Blood Urine Nitrite Urine Bilirubin Urine Urobilinogen Ur Leukocyte Esterase Urine RBC Urine WBC Ur Squamous Epith Cells Ur Transition Epith Cell Amorphous Sediment Urine Bacteria Fine Granular Casts Urine Mucus MRSA (PCR) POC Glucose 09/15/20 11:14 WBC RBC Hgb Hct MCV MCH MCHC RDW Std Deviation RDW Coeff of Tony Plt Count MPV Immature Gran % (Auto) Neut % (Auto) Lymph % (Auto) Hale % (Auto) Eos % (Auto) Baso % (Auto) Absolute Neuts (auto) Absolute Lymphs (auto) Nucleated RBC % Differential Comment Diff Path Review Hypersegmented Neuts RBC Morphology Macrocytosis PT INR APTT Sodium Potassium Chloride Carbon Dioxide Anion Gap BUN Creatinine Estim Creat Clear Calc Est GFR (MDRD) Af Amer Est GFR (MDRD) Non-Af BUN/Creatinine Ratio Glucose Hemoglobin A1c Lactic Acid Calcium Magnesium Total Bilirubin AST ALT Alkaline Phosphatase Troponin I B-Natriuretic Peptide Total Protein Albumin Globulin Albumin/Globulin Ratio Triglycerides Cholesterol LDL Cholesterol VLDL Cholesterol HDL Cholesterol Lipase Procalcitonin TSH Urine Color Urine Clarity Urine pH Ur Specific [place] Urine Protein Urine Glucose (UA) Urine Ketones Urine Occult Blood Urine Nitrite Urine Bilirubin Urine Urobilinogen Ur Leukocyte Esterase Urine RBC Urine WBC Ur Squamous Epith Cells Ur Transition Epith Cell Amorphous Sediment Urine Bacteria Fine Granular Casts Urine Mucus MRSA (PCR) POC Glucose 140 H Micro: Microbiology 09/15/20 04:00 Sputum, Induced/Lukens Gram Stain - Final 09/15/20 04:00 Mucosa - Nasopharyngeal Respiratory Panel (PCR) - Final 09/15/20 01:25 Urine Catheter - Wolfe Legionella Antigen - Final 09/15/20 01:25 Urine Catheter - Wolfe Streptococcus pneumoniae Antigen (M - Final 09/15/20 01:40 Interface Orders SARS-CoV-2 Antigen (Rapid) - Final ABG Data ABG results: ABG 09/15/20 09/15/20 09/15/20 02:10 03:15 07:47 Specimen Type ART ART ART Sample Site L Radial L Radial R Radial pH 7.05 L* 7.17 L* 7.33 L Bicarbonate Actual 19.6 L 22.7 22.2 Total CO2 22 25 24 Base Excess -11 L -6 L -4 L O2 Saturation 85 L 82 L 96 O2 % 60 60 50 ABG pCO2 71.1 H* 62.1 H 42.2 ABG pO2 73 L 59 L 88 Ricky Test Positive Positive Positive Respiration Rate 16 20 16 O2 Delivery Device Adult Vent Adult Vent Adult Vent Vent Mode AC AC AC Tidal Volume 500 550 500 POC PEEP 5 5 8 Crit Call To/Read Back Yes Yes Radiography Diagnostic Testing: Radiology Impression Chest X-Ray 09/15/20 01:27 IMPRESSION: Findings suggestive of pulmonary edema versus diffuse pneumonia. Questionable nodular the right lung base as described. Recommend follow-up with serial x-ray on SEPTEMBER complete resolution to better visualize a nodule. If persistent, recommend further evaluation with CT chest. Electronically Signed: Ramona Mclaughlin MD at 2:40 EDT , Service support , Chest CTA 09/15/20 06:53 IMPRESSION: Significantly limited exam. No central or proximal segmental pulmonary embolus. Bilateral lower lobe infiltrates. Small bilateral pleural effusions. Electronically Signed: Emery العلي MD at 9:09 EDT Tel , Service support , Physical Exam Const Constitutional Narrative: Patient is under light sedation on the ventilator HEENT head/scalp atraumatic and moist oral mucous membranes Head and Scalp: normocephalic Neck no lymphadenopathy and no JVD Resp normal respiratory effort, no retractions, no use of accessory muscles and clear to auscultation bilaterally Cardio regular rate, regular rhythm, S1 normal heart sound, S2 normal heart sound, no gallops and no clicks GI normal to inspection, nondistended, normoactive bowel sounds, soft to palpation, non-tender and non-distended Skin no rashes or lesions noted, no wounds and skin turgor normal Neuro Neuro Narrative: Patient is under light sedation on the ventilator Assessment & Plan Assessment/Plan (1) Acute CHF: QUALIFIERS: Heart failure type: unspecified Qualified Code(s): I50.9 - Heart failure, unspecified PLAN: 1. Acute combined respiratory failure probably secondary to septic shock from bilateral pneumonia-continue antibiotic coverage and vent management per infectious diseases #2 septic shock-secondary to community-acquired pneumonia-patient is on vancomycin and Zosyn at this time #3 acute CHF-etiology unclear, cardiology is participating in her care, echocardiogram pending #4 chronic obstructive pulmonary disease #5 wide QRS ventricular tachycardia-cardiology is participating in her care, echocardiogram pending #6 hypokalemia-labs will be monitored #7 troponin elevation-indicative of non-STEMI Visit Charges Inpatient E&M: 57281 Subs Hosp L2
[2020-09-15 17:40] LABS: Bedside Glucose 137 mg/dL (70-110)
[2020-09-16] VITALS (35 sets, daily range): BP systolic 81–131; BP diastolic 60–88; PULSE 67–104; RESP 12–20; TEMP 36.3–37.8; O2SAT 91–99
[2020-09-16] MEDS: Insulin Lispro 100 UNIT/ML INSULN.PEN SC (00:57)
[2020-09-16 01:15] LABS: Bedside Glucose 152 mg/dL (70-110)
--- NOTE | 2020-09-16 06:11 | PN.CC_ITS ---
Assessment & Plan Assessment/Plan (1) Acute respiratory failure with hypoxia and hypercapnia: PLAN: RECOMMENDATIONS: 1. Proceed with a trial of extubation this morning. 2. Once extubated, wean supplemental oxygen to maintain saturations at or above 90%. 3. Continue empiric antimicrobials. 4. Continue scheduled bronchodilators and steroids. Okay to transition from IV Solu-Medrol to prednisone 40 mg daily. 5. Encourage incentive spirometer use and mobilize patient as tolerated. 6. Tentative plans for cardiac catheterization next week. IMPRESSIONS: 1. Acute combined respiratory failure The patient presented to the hospital with rather acute onset shortness of breath and was emergently intubated in the emergency department after she failed to respond to noninvasive positive pressure ventilatory support. Initial plain film chest x-ray did reveal findings concerning for diffuse bilateral pneumonia versus pulmonary edema. The patient has been maintained on antimicrobials. Echocardiogram did reveal a severely depressed ejection fraction of 25%, making pulmonary edema a likely inciting factor for the patient's respiratory decompensation. She was able to be extubated on the morning of September 16. Cardiology is currently following with tentative plans for cardiac catheterization next week. The patient will be continued on empiric antimicrobials for now. In addition, scheduled bronchodilator therapy and steroids will be continued. 2. Septic shock Resolved. Concern for underlying pulmonary infectious etiology. The patient did have to be started on low-dose Levophed to maintain hemodynamic stability. She has since been weaned from all form of vasopressor support and remains hemodynamically stable. 3. Chronic tobacco dependency Nicotine replacement therapy can be offered to the patient while admitted to the hospital. Unclear history of COPD and/or severity of lung disease, given lack of PFTs in our system. Continue supportive measures with scheduled bronchodilators. Recommend outpatient pulmonary follow-up. 4. Wide-complex tachycardia/troponin elevation/heart failure with reduced ejection fraction Concern for demand ischemia in the setting of #1. Echocardiogram did reveal an ejection fraction of approximately 25%. Cardiology is currently following with tentative plans for catheterization next week. 5. Obesity/hypertension/hyperlipidemia/history of chronic pancreatitis Complicates care, management, recovery and prognosis. TIME: 37 minutes of critical care time, independent of procedures, was spent addressing the patient's acute combined respiratory failure, septic shock, chronic tobacco dependency, wide-complex tachycardia, troponin elevation, review of all data and collaboration with the care team. ([id number]) Subjective Subjective The patient was seen and examined at the bedside this morning. Events from the last 24 hours have been reviewed. The patient is currently afebrile, hemodynamically stable and maintaining appropriate oxygen saturations on spontaneous mode of mechanical ventilation with an FiO2 requirement of 40%. The patient was able to be weaned off of Levophed completely since yesterday. The patient is currently alert and appropriately interactive. She did pass her spontaneous breathing trial this morning. Objective Data Objective Data The patient's most recent lab work, culture data and imaging studies have all been personally reviewed. CTA chest did not demonstrate any central or proximal pulmonary embolism. Bilateral lower lobe infiltrates were noted along with small bilateral pleural effusions. Rapid coronavirus antigen testing was negative. Blood, urine and sputum cultures are pending. Vital Signs: Vital Signs Temp Pulse Resp BP Pulse Ox 99.6 F H 91 12 110/82 H 99 09/16/20 05:00 09/16/20 05:00 09/16/20 05:00 09/16/20 05:00 09/16/20 05:00 Oxygen Flow Rate (L/min) 15 Oxygen Delivery Method Mechanical Ventilator Weight: 190 lb 14.725 oz Body Mass Index (BMI) 31.8 Intake & Output: Intake and Output for Last 24 Hours 09/14/20 09/15/20 09/16/20 23:59 23:59 23:59 Intake Total 3199.92 / 3321.52 719.72 / 719.72 Output Total 2120 / 2295 300 / 300 Balance 1079.92 / 1026.52 419.72 / 419.72 Lab / Micro Data Attestation: I reviewed the patient's lab results. Result Diagrams: 09/16/20 04:20 09/16/20 04:20 Labs: Laboratory Results - last 24 hr 09/15/20 09/15/20 09/15/20 04:05 05:40 05:40 WBC RBC Hgb Hct MCV MCH MCHC RDW Std Deviation RDW Coeff of Tony Plt Count MPV Immature Gran % (Auto) Neut % (Auto) Lymph % (Auto) Sebastian % (Auto) Eos % (Auto) Baso % (Auto) Absolute Neuts (auto) Absolute Lymphs (auto) Nucleated RBC % Differential Comment Diff Path Review Hypersegmented Neuts RBC Morphology Macrocytosis Sodium 144 Potassium 3.3 L Chloride 115 H Carbon Dioxide 22.0 Anion Gap 7 BUN 18 Creatinine 0.86 Estim Creat Clear Calc 65.33 Est GFR (MDRD) Af Amer 88 Est GFR (MDRD) Non-Af 73 BUN/Creatinine Ratio 20.9 H Glucose 76 Hemoglobin A1c Lactic Acid 1.0 Calcium 6.3 L* Total Bilirubin 0.70 AST 172 H ALT 95 H Alkaline Phosphatase 123 H Troponin I Total Protein 5.1 L Albumin 2.6 L Globulin 2.5 Albumin/Globulin Ratio 1.0 Triglycerides 118 Cholesterol 123 LDL Cholesterol 67 VLDL Cholesterol 24 HDL Cholesterol 32 L TSH 1.29 MRSA (PCR) Negative POC Glucose 09/15/20 09/15/20 09/15/20 06:22 06:30 06:30 WBC 12.3 H RBC 3.19 L Hgb 10.4 L Hct 32.8 L MCV 102.8 H MCH 32.6 H MCHC 31.7 L RDW Std Deviation 49.2 H RDW Coeff of Tony 12.9 Plt Count 204 MPV 11.1 Immature Gran % (Auto) 1.400 H Neut % (Auto) 87.0 H Lymph % (Auto) 7.2 L Sebastian % (Auto) 4.3 Eos % (Auto) 0.0 Baso % (Auto) 0.1 Absolute Neuts (auto) 10.7 H Absolute Lymphs (auto) 0.89 Nucleated RBC % 0 Differential Comment SCANNED Diff Path Review Reviewed Hypersegmented Neuts RARE RBC Morphology N CHROM Macrocytosis 1+ Sodium Potassium Chloride Carbon Dioxide Anion Gap BUN Creatinine Estim Creat Clear Calc Est GFR (MDRD) Af Amer Est GFR (MDRD) Non-Af BUN/Creatinine Ratio Glucose Hemoglobin A1c 5.4 Lactic Acid Calcium Total Bilirubin AST ALT Alkaline Phosphatase Troponin I Total Protein Albumin Globulin Albumin/Globulin Ratio Triglycerides Cholesterol LDL Cholesterol VLDL Cholesterol HDL Cholesterol TSH MRSA (PCR) POC Glucose 103 09/15/20 09/15/20 09/15/20 08:05 11:05 11:14 WBC RBC Hgb Hct MCV MCH MCHC RDW Std Deviation RDW Coeff of Tony Plt Count MPV Immature Gran % (Auto) Neut % (Auto) Lymph % (Auto) [place] % (Auto) Eos % (Auto) Baso % (Auto) Absolute Neuts (auto) Absolute Lymphs (auto) Nucleated RBC % Differential Comment Diff Path Review Hypersegmented Neuts RBC Morphology Macrocytosis Sodium Potassium Chloride Carbon Dioxide Anion Gap BUN Creatinine Estim Creat Clear Calc Est GFR (MDRD) Af Amer Est GFR (MDRD) Non-Af BUN/Creatinine Ratio Glucose Hemoglobin A1c Lactic Acid Calcium Total Bilirubin AST ALT Alkaline Phosphatase Troponin I 0.763 H* 0.601 H* Total Protein Albumin Globulin Albumin/Globulin Ratio Triglycerides Cholesterol LDL Cholesterol VLDL Cholesterol HDL Cholesterol TSH MRSA (PCR) POC Glucose 140 H 09/15/20 09/16/20 17:28 00:45 WBC RBC Hgb Hct MCV MCH MCHC RDW Std Deviation RDW Coeff of Tony Plt Count MPV Immature Gran % (Auto) Neut % (Auto) Lymph % (Auto) [place] % (Auto) Eos % (Auto) Baso % (Auto) Absolute Neuts (auto) Absolute Lymphs (auto) Nucleated RBC % Differential Comment Diff Path Review Hypersegmented Neuts RBC Morphology Macrocytosis Sodium Potassium Chloride Carbon Dioxide Anion Gap BUN Creatinine Estim Creat Clear Calc Est GFR (MDRD) Af Amer Est GFR (MDRD) Non-Af BUN/Creatinine Ratio Glucose Hemoglobin A1c Lactic Acid Calcium Total Bilirubin AST ALT Alkaline Phosphatase Troponin I Total Protein Albumin Globulin Albumin/Globulin Ratio Triglycerides Cholesterol LDL Cholesterol VLDL Cholesterol HDL Cholesterol TSH MRSA (PCR) POC Glucose 137 H 152 H Micro: Microbiology 09/15/20 04:00 Sputum, Induced/Lukens Gram Stain - Final 09/15/20 04:00 Mucosa - Nasopharyngeal Respiratory Panel (PCR) - Final 09/15/20 01:25 Urine Catheter - Wolfe Legionella Antigen - Final 09/15/20 01:25 Urine Catheter - Wolfe Streptococcus pneumoniae Antigen (M - Final 09/15/20 01:40 Interface Orders SARS-CoV-2 Antigen (Rapid) - Final ABG Data ABG results: ABG 09/15/20 07:47 Specimen Type ART Sample Site R Radial pH 7.33 L Bicarbonate Actual 22.2 Total CO2 24 Base Excess -4 L O2 Saturation 96 O2 % 50 ABG pCO2 42.2 ABG pO2 88 Ricky Test Positive Respiration Rate 16 O2 Delivery Device Adult Vent Vent Mode AC Tidal Volume 500 POC PEEP 8 Radiography Diagnostic Testing: Radiology Impression Chest CTA 09/15/20 06:53 IMPRESSION: Significantly limited exam. No central or proximal segmental pulmonary embolus. Bilateral lower lobe infiltrates. Small bilateral pleural effusions. Electronically Signed: Emery العلي MD at 9:09 EDT Tel , Service support , Physical Exam Const alert and no apparent distress Constitutional Narrative: Tolerating spontaneous mode of mechanical ventilation. General Appearance: cooperative and patient mechanically ventilated HEENT normocephalic, head/scalp atraumatic and moist oral mucous membranes Mouth: endotracheal tube in place and OG tube in place Eyes PERRL and EOMs intact bilaterally Neck supple General: trachea midline Resp Auscultation: diminished lung sounds; Negative for rales, rhonchi or wheezes Cardio regular rate and regular rhythm GI normal to inspection, nondistended, normoactive bowel sounds Extremity no clubbing, cyanosis or edema Skin no rashes or lesions noted Neuro moves all extremities and no focal motor deficits Charges/Coding Procedures Hospitalists Procedures: 28094 Critial Care 1st Hr
[2020-09-16] MEDS: 0.9% Saline Lock 10 ML Syringe IV ×2 (06:20→08:10)
[2020-09-16] MEDS: Enoxaparin 100 MG/ML Syringe 90 MG SC ×2 (06:20→17:45)
[2020-09-16] MEDS: Ipratropium/Albuterol Sulfate 3 ML AMPUL.NEB INHALATION ×4 (06:45→19:07)
[2020-09-16 06:54] LABS: Absolute Lymphocyte Count 0.92 X10^3/uL (0.83-4.51); Absolute Neutrophil Count 8.1 X10^3/uL (2.0-7.7); Basophil# 0.01 X10^3/uL; Basophil% 0.1 % (0-1); Hematocrit 35.8 % (37-47); Hemoglobin 11.5 g/dL (12.0-15.0); Lymphocyte # 0.92 X10^3/ul (0.83-4.51); Lymphocyte % 9.6 % (19-41); Mean Corp Hgb Conc 32.1 g/dL (32-36); Mean Corpuscular Hgb 32.5 pg (27.0-32.0); Mean Corpuscular Volume 101.1 fL (81-99); Mean Platelet Vol. 11.7 fl (6.2-12.0); Monocyte# 0.53 X10^3/uL; Monocyte% 5.5 % (0-10); NRBC Flagged by Analyzer 0 % (0-5); Neutrophil # 8.09 X10^3/uL (2.7-7.7); Neutrophil % 84.6 % (47-70); Platelet Count 214 K/mm3 (150-450); RBC Distribution Width CV 13.2 % (11.6-14.6); RBC Distribution Width SD 49.2 fl (35.1-43.9); Red Blood Count 3.54 M/mm3 (4.2-5.4); White Blood Count 9.6 K/mm3 (4.4-11.0)
[2020-09-16 07:06] LABS: Anion Gap 5 (5-15); BUN 22 mg/dL (7-18); BUN/Creat Ratio 26.5 RATIO (10-20); Calcium,Total 8.4 mg/dL (8.5-10.1); Chloride 108 mmol/L (98-107); Creatinine, Serum 0.83 mg/dL (0.55-1.02); EST Glomerular Filtration Rate 76 mL/min (>60); Est Glom Filt Rate - Afr Amer 92 mL/min (>60); Estimated Creatinine Clearance 67.69 ml/min; Glucose 152 mg/dL (74-106); Potassium 4.6 mmol/L (3.5-5.1); Sodium Level 138 mmol/L (136-145)
--- NOTE | 2020-09-16 07:32 | PN.CARD_ITS ---
Subjective Subjective Patient seen and elated. Extubated. Appears to be doing better this morning. Objective Data Vital Signs: Vital Signs Temp Pulse Resp BP Pulse Ox 99.9 F H 99 16 129/88 H 93 09/16/20 07:00 09/16/20 07:30 09/16/20 07:00 09/16/20 07:00 09/16/20 07:00 Oxygen Flow Rate (L/min) 4 Oxygen Delivery Method Mechanical Ventilator Weight: 193 lb 1.999 oz Body Mass Index (BMI) 31.8 Intake & Output: Intake and Output for Last 24 Hours 09/14/20 09/15/20 09/16/20 23:59 23:59 23:59 Intake Total 3199.92 / 3321.52 746.82 / 746.82 Output Total 2120 / 2295 400 / 400 Balance 1079.92 / 1026.52 346.82 / 346.82 Lab / Micro Data Result Diagrams: 09/16/20 04:20 09/16/20 04:20 Labs: Laboratory Results - last 24 hr 09/15/20 09/15/20 09/15/20 04:05 06:30 06:30 WBC RBC Hgb Hct MCV MCH MCHC RDW Std Deviation RDW Coeff of Tony Plt Count MPV Immature Gran % (Auto) Neut % (Auto) Lymph % (Auto) [place] % (Auto) Eos % (Auto) Baso % (Auto) Absolute Neuts (auto) Absolute Lymphs (auto) Nucleated RBC % Diff Path Review Reviewed Sodium Potassium Chloride Carbon Dioxide Anion Gap BUN Creatinine Estim Creat Clear Calc Est GFR (MDRD) Af Amer Est GFR (MDRD) Non-Af BUN/Creatinine Ratio Glucose Hemoglobin A1c 5.4 Calcium Troponin I MRSA (PCR) Negative POC Glucose 09/15/20 09/15/20 09/15/20 08:05 11:05 11:14 WBC RBC Hgb Hct MCV MCH MCHC RDW Std Deviation RDW Coeff of Tony Plt Count MPV Immature Gran % (Auto) Neut % (Auto) Lymph % (Auto) [place] % (Auto) Eos % (Auto) Baso % (Auto) Absolute Neuts (auto) Absolute Lymphs (auto) Nucleated RBC % Diff Path Review Sodium Potassium Chloride Carbon Dioxide Anion Gap BUN Creatinine Estim Creat Clear Calc Est GFR (MDRD) Af Amer Est GFR (MDRD) Non-Af BUN/Creatinine Ratio Glucose Hemoglobin A1c Calcium Troponin I 0.763 H* 0.601 H* MRSA (PCR) POC Glucose 140 H 09/15/20 09/16/20 09/16/20 17:28 00:45 04:20 WBC 9.6 RBC 3.54 L Hgb 11.5 L Hct 35.8 L MCV 101.1 H MCH 32.5 H MCHC 32.1 RDW Std Deviation 49.2 H RDW Coeff of Tony 13.2 Plt Count 214 MPV 11.7 Immature Gran % (Auto) 0.200 Neut % (Auto) 84.6 H Lymph % (Auto) 9.6 L [place] % (Auto) 5.5 Eos % (Auto) 0.0 Baso % (Auto) 0.1 Absolute Neuts (auto) 8.1 H Absolute Lymphs (auto) 0.92 Nucleated RBC % 0 Diff Path Review Sodium Potassium Chloride Carbon Dioxide Anion Gap BUN Creatinine Estim Creat Clear Calc Est GFR (MDRD) Af Amer Est GFR (MDRD) Non-Af BUN/Creatinine Ratio Glucose Hemoglobin A1c Calcium Troponin I MRSA (PCR) POC Glucose 137 H 152 H 09/16/20 04:20 WBC RBC Hgb Hct MCV MCH MCHC RDW Std Deviation RDW Coeff of Tony Plt Count MPV Immature Gran % (Auto) Neut % (Auto) Lymph % (Auto) [place] % (Auto) Eos % (Auto) Baso % (Auto) Absolute Neuts (auto) Absolute Lymphs (auto) Nucleated RBC % Diff Path Review Sodium 138 Potassium 4.6 Chloride 108 H Carbon Dioxide 25.0 Anion Gap 5 BUN 22 H Creatinine 0.83 Estim Creat Clear Calc 67.69 Est GFR (MDRD) Af Amer 92 Est GFR (MDRD) Non-Af 76 BUN/Creatinine Ratio 26.5 H Glucose 152 H Hemoglobin A1c Calcium 8.4 L Troponin I MRSA (PCR) POC Glucose Micro: Microbiology 09/15/20 04:00 Sputum, Induced/Lukens Gram Stain - Final 09/15/20 04:00 Mucosa - Nasopharyngeal Respiratory Panel (PCR) - Final 09/15/20 01:25 Urine Catheter - Wolfe Legionella Antigen - Final 09/15/20 01:25 Urine Catheter - Wolfe Streptococcus pneumoniae Antigen (M - Final 09/15/20 01:40 Interface Orders SARS-CoV-2 Antigen (Rapid) - Final ABG Data ABG results: ABG 09/15/20 07:47 Specimen Type ART Sample Site R Radial pH 7.33 L Bicarbonate Actual 22.2 Total CO2 24 Base Excess -4 L O2 Saturation 96 O2 % 50 ABG pCO2 42.2 ABG pO2 88 Ricky Test Positive Respiration Rate 16 O2 Delivery Device Adult Vent Vent Mode AC Tidal Volume 500 POC PEEP 8 Cardiology Labs/Tests 09/15/20 06:30: Hemoglobin A1c 5.4 09/15/20 07:47: pH 7.33 L, Bicarbonate Actual 22.2, Base Excess -4 L, O2 Saturation 96, ABG pCO2 42.2, ABG pO2 88, Ricky Test Positive 09/15/20 08:05: Troponin I 0.763 H* 09/15/20 11:05: Troponin I 0.601 H* 09/16/20 04:20: WBC 9.6, RBC 3.54 L, Hgb 11.5 L, Hct 35.8 L, MCV 101.1 H, MCH 32.5 H, MCHC 32.1, Plt Count 214, MPV 11.7, Immature Gran % (Auto) 0.200, Neut % (Auto) 84.6 H, Lymph % (Auto) 9.6 L, [place] % (Auto) 5.5, Eos % (Auto) 0.0, Baso % (Auto) 0.1, Absolute Neuts (auto) 8.1 H, Nucleated RBC % 0 09/16/20 04:20: Sodium 138, Potassium 4.6, Chloride 108 H, Carbon Dioxide 25.0, Anion Gap 5, BUN 22 H, Creatinine 0.83, Est GFR (MDRD) Af Amer 92, Est GFR (MDRD ) Non-Af 76, BUN/Creatinine Ratio 26.5 H, Glucose 152 H, Calcium 8.4 L Rhythm: EKG: ECHO: Stress Test: Cardiac Cath: PCI: CT Surgery: Holter monitor: EPS: PPM: CXR: Chest CT Scan: Radiography Diagnostic Testing: Radiology Impression Chest CTA 09/15/20 06:53 IMPRESSION: Significantly limited exam. No central or proximal segmental pulmonary embolus. Bilateral lower lobe infiltrates. Small bilateral pleural effusions. Electronically Signed: Emery العلي MD at 9:09 EDT Tel , Service support , Assessment & Plan Assessment/Plan (1) Acute CHF: QUALIFIERS: Heart failure type: unspecified Qualified Code(s): I50.9 - Heart failure, unspecified PLAN: Patient is noted to present with shortness of breath and a markedly elevated natruretic peptide level with chest x-ray changes consistent with congestive heart failure. * Echocardiogram demonstrated severe left ventricular systolic dysfunction with possible apical thrombus noted. * Will start low-dose beta-kathie * We will continue with diuresis as necessary * Will likely need cardiac catheterization early next week. * We will also continue Lovenox twice daily * * Thank you for allowing me to participate in the care of your patient. Please don't hesitate to call if any issues arise. (2) Wide QRS ventricular tachycardia: PLAN: She does have a wide QRS tachycardia which at a young age and with her presentation suggest that she may have an underlying cardiomyopathy. * Echo did confirm severe cardiomyopathy * This may at some point to include an evaluation of her coronary anatomy to exclude obstructive coronary disease. * Would recommend continuing with supportive therapy at this time.
[2020-09-16] MEDS: Morphine 2 MG/ML Syringe IV (08:11)
[2020-09-16] MEDS: Carvedilol 3.125 MG TABLET PO ×2 (08:56→21:35)
[2020-09-16] MEDS: Aspirin 81 MG TAB.CHEW PO (08:56)
[2020-09-16] MEDS: Acetaminophen 325 MG Tablet 650 MG PO ×2 (09:17→15:36)
--- NOTE | 2020-09-16 09:29 | CASEMGMT ---
CIPRIANO STEWART NOTE: Insurance review for hospitals In-network with [facility] Insurance if transfer is recommended is as follows: [facility], [place], [facility], [facility], [facility], [facility], [facility] ([facility]), and . Pierre PICKENS RN CM
--- NOTE | 2020-09-16 10:45 | CASEMGMT ---
RN PAT ART CLASS MODEL CM to room to meet with patient for initial transition planning/care coordination assessment. CIPRIANO STEWART introduced self and role at [facility]. Pt voices understanding and consents to assessment at this time. Pt resting in bed in no distress at this time. Pt is A/O at this time and answers all questions appropriately. Care providers, pharmacy, and demographics verified/updated at this time. PCP: No PCP. Provided w/list of local PCP's and advised to get established w/PCP as soon as possible. Specialists: None Preferred Pharmacy: [facility] [place], [place] Insurance: [employer] Prescription Benefit: Yes Living Will/HPOA: Pt does not currently have LW/HCPOA and declines info at this time. Pt made aware that she can contact as an out-pt and make appt in the future if she decides she would like to talk with someone about this or would like to utilize [facility] social work for advanced directive completion. Given [employer] card with information and contact number. Pt expresses understanding. LNOK: , Anna. 3 living children Living Arrangements: Lives w/her in mobile home w/ramp entrance. Independent. Transportation: Pt states she does not drive. drives and denies transportation concerns at this time. DME: Denies using any DME and denies needs. HHC/SNF: No history of either and no needs identified. Denies need for HHC. Pt wishes to return home and states has no concerns with going home at time of discharge. CM to follow for home oxygen needs and any further discharge planning/needs. Pt voices no further concerns/needs at this time. Advised pt to ask for CM if any further questions/concerns/needs arise. Voices understanding. PLAN: Home w/spousal support and discharge plans in place. No Home O2. Currently on 4 l/m O2. CM to follow for any oxygen needs @ discharge. Pierre PICKENS RN, CM
[2020-09-16] MEDS: HYDROcodone Bitartrate/Apap 5/325 Tablet PO (16:48)
--- NOTE | 2020-09-16 17:56 | PCM.PN.HOSP ---
Subjective Subjective and examined today in ICU,Patient was seen she was extubated this morning, she is currently on nasal cannula oxygen. Echocardiogram yesterday showed impaired EF with evidence of a thrombus in the left ventricle Objective Data Objective Data Vital Signs: Vital Signs Temp Pulse Resp BP Pulse Ox 97.3 F L 102 H 18 103/69 96 09/16/20 15:30 09/16/20 15:49 09/16/20 15:30 09/16/20 15:30 09/16/20 15:30 Oxygen Flow Rate (L/min) 2 Oxygen Delivery Method Nasal Cannula Weight: 87.6 kg Body Mass Index (BMI) 31.8 Intake & Output: Intake and Output for Last 24 Hours 09/14/20 09/15/20 09/16/20 23:59 23:59 23:59 Intake Total 3199.92 / 3321.52 1386.82 / 1386.82 Output Total 2120 / 2295 1350 / 1350 Balance 1079.92 / 1026.52 36.82 / 36.82 Lab / Micro Data Result Diagrams: 09/16/20 04:20 09/16/20 04:20 Labs: Laboratory Results - last 24 hr 09/16/20 09/16/20 09/16/20 00:45 04:20 04:20 WBC 9.6 RBC 3.54 L Hgb 11.5 L Hct 35.8 L MCV 101.1 H MCH 32.5 H MCHC 32.1 RDW Std Deviation 49.2 H RDW Coeff of Tony 13.2 Plt Count 214 MPV 11.7 Immature Gran % (Auto) 0.200 Neut % (Auto) 84.6 H Lymph % (Auto) 9.6 L [place] % (Auto) 5.5 Eos % (Auto) 0.0 Baso % (Auto) 0.1 Absolute Neuts (auto) 8.1 H Absolute Lymphs (auto) 0.92 Nucleated RBC % 0 Sodium 138 Potassium 4.6 Chloride 108 H Carbon Dioxide 25.0 Anion Gap 5 BUN 22 H Creatinine 0.83 Estim Creat Clear Calc 67.69 Est GFR (MDRD) Af Amer 92 Est GFR (MDRD) Non-Af 76 BUN/Creatinine Ratio 26.5 H Glucose 152 H Calcium 8.4 L POC Glucose 152 H Micro: Microbiology 09/15/20 04:00 Sputum, Induced/Lukens Gram Stain - Final 09/15/20 04:00 Sputum, Induced/Lukens Respiratory Culture - Preliminary 09/15/20 01:55 Urine Catheter - Wolfe Urine Culture - Preliminary Mixed Gram Positive Organisms 09/15/20 04:00 Mucosa - Nasopharyngeal Respiratory Panel (PCR) - Final 09/15/20 01:25 Urine Catheter - Wolfe Legionella Antigen - Final 09/15/20 01:25 Urine Catheter - Wolfe Streptococcus pneumoniae Antigen (M - Final 09/15/20 01:40 Interface Orders SARS-CoV-2 Antigen (Rapid) - Final Radiography Diagnostic Testing: Radiology Impression Echocardiogram 09/15/20 03:48 Interpretation Summary Normal LV size. The estimated ejection fraction is 25 %. Stage 1 diastolic dysfunction. Apical thrombus noted Ordering Physician: Krissy Hobbs Performed By: Fiona Vincent, JOSECS, RVT Physical Exam Const alert, oriented x3 and no apparent distress HEENT head/scalp atraumatic and moist oral mucous membranes Head and Scalp: normocephalic Eyes PERRL, EOMs intact bilaterally and conjunctivae normal Neck no lymphadenopathy, supple and no JVD Resp normal respiratory effort, no retractions, no use of accessory muscles and clear to auscultation bilaterally Cardio regular rate, regular rhythm, S1 normal heart sound, S2 normal heart sound, no gallops and no clicks GI normal to inspection, nondistended, normoactive bowel sounds, soft to palpation, non-tender and non-distended Skin no rashes or lesions noted, no wounds and skin turgor normal Neuro oriented x3, CN's II-XII intact bilaterally, no focal motor deficits and no sensory deficits noted Sensorium / Orientation: awake and alert Psych affect normal Assessment & Plan Assessment/Plan (1) Acute CHF: QUALIFIERS: Heart failure type: unspecified Qualified Code(s): I50.9 - Heart failure, unspecified PLAN: 1. Acute combined respiratory failure probably secondary to septic shock from bilateral pneumonia-continue antibiotic coverage #2 septic shock-secondary to community-acquired pneumonia-patient is on vancomycin and Zosyn at this time #3 acute CHF-etiology unclear, cardiology is participating in her care, echocardiogram pending #4 chronic obstructive pulmonary disease #5 wide QRS ventricular tachycardia-cardiology is participating in her care, echocardiogram pending #6 hypokalemia-labs will be monitored #7 troponin elevation-indicative of non-STEMI #8 cardiomyopathy-etiology unclear at this point #9 LV thrombus-patient is currently anticoagulated
[2020-09-17] VITALS (15 sets, daily range): BP systolic 108–139; BP diastolic 80–105; PULSE 75–113; RESP 13–20; TEMP 36.6–36.8; O2SAT 92–96
[2020-09-17] MEDS: HYDROcodone Bitartrate/Apap 5/325 Tablet PO (00:50)
[2020-09-17] MEDS: Enoxaparin 100 MG/ML Syringe 90 MG SC ×2 (05:24→18:07)
[2020-09-17] MEDS: 0.9% Saline Lock 10 ML Syringe IV ×3 (05:25→22:27)
[2020-09-17] MEDS: Albuterol 2.5 MG/3 ML VIAL.NEB. INHALATION (05:36)
[2020-09-17] MEDS: Acetaminophen 325 MG Tablet 650 MG PO ×2 (05:41→12:40)
[2020-09-17 05:45] LABS: Absolute Lymphocyte Count 4.16 X10^3/uL (0.83-4.51); Absolute Neutrophil Count 6.2 X10^3/uL (2.0-7.7); Basophil# 0.03 X10^3/uL; Basophil% 0.3 % (0-1); Eosinophil# 0.01 X10^3/uL; Eosinophils% 0.1 % (0-5); Hematocrit 35.2 % (37-47); Hemoglobin 11.4 g/dL (12.0-15.0); Lymphocyte # 4.16 X10^3/ul (0.83-4.51); Lymphocyte % 37.2 % (19-41); Mean Corp Hgb Conc 32.4 g/dL (32-36); Mean Corpuscular Hgb 32.7 pg (27.0-32.0); Mean Corpuscular Volume 100.9 fL (81-99); Mean Platelet Vol. 11.3 fl (6.2-12.0); Monocyte# 0.75 X10^3/uL; Monocyte% 6.7 % (0-10); NRBC Flagged by Analyzer 0 % (0-5); Neutrophil % 55.4 % (47-70); Platelet Count 205 K/mm3 (150-450); RBC Distribution Width CV 13.2 % (11.6-14.6); RBC Distribution Width SD 49.3 fl (35.1-43.9); Red Blood Count 3.49 M/mm3 (4.2-5.4); White Blood Count 11.2 K/mm3 (4.4-11.0)
[2020-09-17 06:02] LABS: AST(SGOT) 49 U/L (15-37); Alanine Aminotransfer ALT/SGPT 67 U/L (13-56); Alkaline Phosphatase 86 U/L (45-117); Anion Gap 1 (5-15); BUN 15 mg/dL (7-18); BUN/Creat Ratio 19.3 RATIO (10-20); Calcium,Total 8.7 mg/dL (8.5-10.1); Chloride 109 mmol/L (98-107); Creatinine, Serum 0.78 mg/dL (0.55-1.02); EST Glomerular Filtration Rate 82 mL/min (>60); Est Glom Filt Rate - Afr Amer 100 mL/min (>60); Estimated Creatinine Clearance 72.03 ml/min; Glucose 90 mg/dL (74-106); Potassium 4.3 mmol/L (3.5-5.1); Sodium Level 141 mmol/L (136-145)
--- NOTE | 2020-09-17 07:46 | PN.CC_ITS ---
Assessment & Plan Assessment/Plan (1) Acute respiratory failure with hypoxia and hypercapnia: PLAN: RECOMMENDATIONS: 1. Continue continuous oxygen monitoring 2. Walking oximetry prior to discharge. 3. Continue empiric antimicrobials. 4. Continue scheduled bronchodilators and steroids. Anticipate weaning prednisone over 12 days at discharge 5. Encourage incentive spirometer use and mobilize patient as tolerated. 6. Tentative plans for cardiac catheterization next week. 7. Outpatient work-up for pulmonary status IMPRESSIONS: 1. Acute combined respiratory failure The patient presented to the hospital with rather acute onset shortness of breath and was emergently intubated in the emergency department after she failed to respond to noninvasive positive pressure ventilatory support. Initial plain film chest x-ray did reveal findings concerning for diffuse bilateral pneumonia versus pulmonary edema. The patient has been maintained on antimicrobials. Echocardiogram did reveal a severely depressed ejection fraction of 25%, making pulmonary edema a likely inciting factor for the patient's respiratory decompe nsation. She was able to be extubated on the morning of September 16. Cardiology is currently following with tentative plans for cardiac catheterization next week. The patient will be continued on empiric antimicrobials for now. In addition, scheduled bronchodilator therapy and steroids will be continued. Continue to wean oxygen as tolerated. Patient will need an outpatient work-up for pulmonary status 2. Septic shock Resolved. Concern for underlying pulmonary infectious etiology. The patient did have to be started on low-dose Levophed to maintain hemodynamic s tability. She has since been weaned from all form of vasopressor support and remains hemodynamically stable. 3. Chronic tobacco dependency Nicotine replacement therapy can be offered to the patient while admitted to the hospital. Unclear history of COPD and/or severity of lung disease, given lack of PFTs in our system. Continue supportive measures with scheduled b ronchodilators. Recommend outpatient pulmonary follow-up. 4. Wide-complex tachycardia/troponin elevation/heart failure with reduced ejection fraction Concern for demand ischemia in the setting of #1. Echocardiogram did reveal an ejection fraction of approximately 25%. Cardiology is currently following with tentative plans for catheterization next week. 5. Obesity/hypertension/hyperlipidemia/history of chronic pancreatitis Complicates care, management, recovery and prognosis. Subjective Subjective Patient did okay overnight. No acute issues were reported. Patient states that she feels subjectively improved from presentation, but is still short of breath with exertion. Patient reports that she is not on supplemental oxygen at baseline. Nursing did attempt room air and stated that the patient desaturated to about 89%, especially with sleep and activities. Objective Data Objective Data Vital Signs: Vital Signs Temp Pulse Resp BP Pulse Ox 36.7 C 98 13 108/80 96 09/17/20 02:30 09/17/20 03:53 09/17/20 02:30 09/17/20 02:30 09/17/20 02:30 Oxygen Flow Rate (L/min) 2 Oxygen Delivery Method Nasal Cannula Weight: 87.4 kg Body Mass Index (BMI) 31.8 Intake & Output: Intake and Output for Last 24 Hours 09/15/20 09/16/20 09/17/20 23:59 23:59 23:59 Intake Total 3199.92 / 3321.52 2155.82 / 2155.82 505.75 / 505.75 Output Total 2120 / 2295 2100 / 2100 800 / 800 Balance 1079.92 / 1026.52 55.82 / 55.82 -294.25 / -294.25 Lab / Micro Data Result Diagrams: 09/17/20 05:30 09/17/20 05:30 Labs: Laboratory Results - last 24 hr 09/17/20 09/17/20 05:30 05:30 WBC 11.2 H RBC 3.49 L Hgb 11.4 L Hct 35.2 L MCV 100.9 H MCH 32.7 H MCHC 32.4 RDW Std Deviation 49.3 H RDW Coeff of Tony 13.2 Plt Count 205 MPV 11.3 Immature Gran % (Auto) 0.300 Neut % (Auto) 55.4 Lymph % (Auto) 37.2 [place] % (Auto) 6.7 Eos % (Auto) 0.1 Baso % (Auto) 0.3 Absolute Neuts (auto) 6.2 Absolute Lymphs (auto) 4.16 Nucleated RBC % 0 Sodium 141 Potassium 4.3 Chloride 109 H Carbon Dioxide 31.0 Anion Gap 1 L BUN 15 Creatinine 0.78 Estim Creat Clear Calc 72.03 Est GFR (MDRD) Af Amer 100 Est GFR (MDRD) Non-Af 82 BUN/Creatinine Ratio 19.3 Glucose 90 Calcium 8.7 Total Bilirubin 0.40 AST 49 H ALT 67 H Alkaline Phosphatase 86 Total Protein 6.0 L Albumin 3.0 L Globulin 3.0 Albumin/Globulin Ratio 1.0 Micro: Microbiology 09/15/20 04:00 Sputum, Induced/Lukens Gram Stain - Final 09/15/20 04:00 Sputum, Induced/Lukens Respiratory Culture - Preliminary 09/15/20 01:55 Urine Catheter - Wolfe Urine Culture - Preliminary Mixed Gram Positive Organisms 09/15/20 04:00 Mucosa - Nasopharyngeal Respiratory Panel (PCR) - Final 09/15/20 01:25 Urine Catheter - Wolfe Legionella Antigen - Final 09/15/20 01:25 Urine Catheter - Wolfe Streptococcus pneumoniae Antigen (M - Final 09/15/20 01:40 Interface Orders SARS-CoV-2 Antigen (Rapid) - Final Radiography Diagnostic Testing: Radiology Impression Echocardiogram 09/15/20 03:48 Interpretation Summary Normal LV size. The estimated ejection fraction is 25 %. Stage 1 diastolic dysfunction. Apical thrombus noted Ordering Physician: Krissy Hobbs Performed By: Fiona Vincent RDCS, RVT Physical Exam Const alert, oriented x3 and no apparent distress General Appearance: cooperative Nutritional Appearance: obese HEENT normocephalic, head/scalp atraumatic and moist oral mucous membranes Eyes PERRL and EOMs intact bilaterally Neck supple General: trachea midline Chest Chest Narrative: Increased AP diameter Chest: symmetrical chest wall rise Resp Auscultation: diminished lung sounds; Negative for rales, rhonchi or wheezes Cardio regular rate and regular rhythm GI normal to inspection, nondistended, normoactive bowel sounds Extremity no clubbing, cyanosis or edema Skin no rashes or lesions noted Neuro oriented x3, CN's II-XII intact bilaterally, moves all extremities, no focal motor deficits, no sensory deficits noted and deep tendon reflexes 2+ bilaterally Charges/Coding Visit Charges Inpatient E&M: 14863 Subs Hosp L3
[2020-09-17] MEDS: Ipratropium/Albuterol Sulfate 3 ML AMPUL.NEB INHALATION ×4 (08:01→19:05)
[2020-09-17] MEDS: Aspirin 81 MG TAB.CHEW PO (08:53)
[2020-09-17] MEDS: predniSONE 20 MG Tablet 40 MG PO (08:53)
[2020-09-17] MEDS: Pantoprazole Sodium 40 MG Tablet PO (08:54)
[2020-09-17] MEDS: Carvedilol 3.125 MG TABLET PO ×2 (08:54→14:16)
[2020-09-17] MEDS: guaiFENesin 600 MG Tablet PO ×2 (08:54→22:27)
[2020-09-17] MEDS: Ibuprofen 600 MG Tablet PO (09:24)
--- NOTE | 2020-09-17 12:05 | PCM.PN.HOSP ---
Subjective Subjective Patient was seen and examined today, I talked with cardiology briefly about her care, patient is alert and oriented x3, she understands that she will need a heart cath on Saturday Objective Data Objective Data Vital Signs: Vital Signs Temp Pulse Resp BP Pulse Ox 98.1 F 113 H 20 H 117/88 H 94 09/17/20 07:52 09/17/20 11:44 09/17/20 11:44 09/17/20 07:52 09/17/20 08:01 Oxygen Flow Rate (L/min) 1 Oxygen Delivery Method Nasal Cannula Weight: 87.4 kg Body Mass Index (BMI) 31.8 Intake & Output: Intake and Output for Last 24 Hours 09/15/20 09/16/20 09/17/20 23:59 23:59 23:59 Intake Total 3199.92 / 3321.52 2155.82 / 2155.82 505.75 / 505.75 Output Total 2120 / 2295 2100 / 2100 800 / 800 Balance 1079.92 / 1026.52 55.82 / 55.82 -294.25 / -294.25 Lab / Micro Data Result Diagrams: 09/17/20 05:30 09/17/20 05:30 Labs: Laboratory Results - last 24 hr 09/17/20 09/17/20 05:30 05:30 WBC 11.2 H RBC 3.49 L Hgb 11.4 L Hct 35.2 L MCV 100.9 H MCH 32.7 H MCHC 32.4 RDW Std Deviation 49.3 H RDW Coeff of Tony 13.2 Plt Count 205 MPV 11.3 Immature Gran % (Auto) 0.300 Neut % (Auto) 55.4 Lymph % (Auto) 37.2 [place] % (Auto) 6.7 Eos % (Auto) 0.1 Baso % (Auto) 0.3 Absolute Neuts (auto) 6.2 Absolute Lymphs (auto) 4.16 Nucleated RBC % 0 Sodium 141 Potassium 4.3 Chloride 109 H Carbon Dioxide 31.0 Anion Gap 1 L BUN 15 Creatinine 0.78 Estim Creat Clear Calc 72.03 Est GFR (MDRD) Af Amer 100 Est GFR (MDRD) Non-Af 82 BUN/Creatinine Ratio 19.3 Glucose 90 Calcium 8.7 Total Bilirubin 0.40 AST 49 H ALT 67 H Alkaline Phosphatase 86 Total Protein 6.0 L Albumin 3.0 L Globulin 3.0 Albumin/Globulin Ratio 1.0 Micro: Microbiology 09/15/20 01:55 Urine Catheter - Wolfe Urine Culture - Preliminary Gram positive liane 09/15/20 04:00 Sputum, Induced/Lukens Gram Stain - Final 09/15/20 04:00 Sputum, Induced/Lukens Respiratory Culture - Preliminary 09/15/20 04:00 Mucosa - Nasopharyngeal Respiratory Panel (PCR) - Final 09/15/20 01:25 Urine Catheter - Wolfe Legionella Antigen - Final 09/15/20 01:25 Urine Catheter - Wolfe Streptococcus pneumoniae Antigen (M - Final 09/15/20 01:40 Interface Orders SARS-CoV-2 Antigen (Rapid) - Final Physical Exam Const alert, oriented x3, no apparent distress and healthy appearing General Appearance: cooperative, well kempt and well developed Orientation / Consciousness: awake, oriented to person, oriented to place and oriented to time HEENT normocephalic and moist oral mucous membranes Eyes PERRL, EOMs intact bilaterally and conjunctivae normal Neck nuchal rigidity, supple, no JVD, thyroid normal and no carotid bruits General: trachea midline Resp normal respiratory effort and clear to auscultation bilaterally Auscultation: Negative for rales, rhonchi or wheezes Cardio regular rate, regular rhythm, no murmurs, no rub and no gallops GI normal to inspection, nondistended, normoactive bowel sounds, soft to palpation, non-tender and non-distended Extremity no clubbing, cyanosis or edema Skin no rashes or lesions noted General Skin Exam: no breakdown Neuro oriented x3, CN's II-XII intact bilaterally, no focal motor deficits and no sensory deficits noted Sensorium / Orientation: awake and alert Speech: speech normal Psych thought process normal and affect normal Assessment & Plan Assessment/Plan (1) Acute CHF: QUALIFIERS: Heart failure type: unspecified Qualified Code(s): I50.9 - Heart failure, unspecified PLAN: 1. Acute combined respiratory failure probably secondary to septic shock from bilateral pneumonia-continue antibiotic coverage, patient appears stable for transfer to PCU #2 septic shock-secondary to community-acquired pneumonia-patient is on Zosyn #3 acute CHF-etiology unclear, cardiology is participating in her care #4 chronic obstructive pulmonary disease #5 wide QRS ventricular tachycardia-cardiology is participating in her care #6 hypokalemia-resolved #7 troponin elevation-indicative of non-STEMI #8 cardiomyopathy-etiology unclear at this point, EF is reduced #9 LV thrombus-patient is currently anticoagulated
--- NOTE | 2020-09-17 13:42 | PN.CARD_ITS ---
Subjective Subjective Doing well. Denies any significant cardiac complaints. Objective Data Vital Signs: Vital Signs Temp Pulse Resp BP Pulse Ox 97.8 F 88 20 H 137/105 H 94 09/17/20 12:00 09/17/20 12:00 09/17/20 12:00 09/17/20 12:00 09/17/20 12:00 Oxygen Flow Rate (L/min) 1 Oxygen Delivery Method Room Air Weight: 192 lb 10.944 oz Body Mass Index (BMI) 31.8 Intake & Output: Intake and Output for Last 24 Hours 09/15/20 09/16/20 09/17/20 23:59 23:59 23:59 Intake Total 3199.92 / 3321.52 2155.82 / 2155.82 1005.75 / 1005.75 Output Total 2120 / 2295 2100 / 2100 1400 / 1400 Balance 1079.92 / 1026.52 55.82 / 55.82 -394.25 / -394.25 Lab / Micro Data Result Diagrams: 09/17/20 05:30 09/17/20 05:30 Labs: Laboratory Results - last 24 hr 09/17/20 09/17/20 05:30 05:30 WBC 11.2 H RBC 3.49 L Hgb 11.4 L Hct 35.2 L MCV 100.9 H MCH 32.7 H MCHC 32.4 RDW Std Deviation 49.3 H RDW Coeff of Tony 13.2 Plt Count 205 MPV 11.3 Immature Gran % (Auto) 0.300 Neut % (Auto) 55.4 Lymph % (Auto) 37.2 [place] % (Auto) 6.7 Eos % (Auto) 0.1 Baso % (Auto) 0.3 Absolute Neuts (auto) 6.2 Absolute Lymphs (auto) 4.16 Nucleated RBC % 0 Sodium 141 Potassium 4.3 Chloride 109 H Carbon Dioxide 31.0 Anion Gap 1 L BUN 15 Creatinine 0.78 Estim Creat Clear Calc 72.03 Est GFR (MDRD) Af Amer 100 Est GFR (MDRD) Non-Af 82 BUN/Creatinine Ratio 19.3 Glucose 90 Calcium 8.7 Total Bilirubin 0.40 AST 49 H ALT 67 H Alkaline Phosphatase 86 Total Protein 6.0 L Albumin 3.0 L Globulin 3.0 Albumin/Globulin Ratio 1.0 Micro: Microbiology 09/15/20 01:55 Urine Catheter - Wolfe Urine Culture - Preliminary Gram positive liane 09/15/20 04:00 Sputum, Induced/Lukens Gram Stain - Final 09/15/20 04:00 Sputum, Induced/Lukens Respiratory Culture - Preliminary 09/15/20 04:00 Mucosa - Nasopharyngeal Respiratory Panel (PCR) - Final 09/15/20 01:25 Urine Catheter - Wolfe Legionella Antigen - Final 09/15/20 01:25 Urine Catheter - Wolfe Streptococcus pneumoniae Antigen (M - Final 09/15/20 01:40 Interface Orders SARS-CoV-2 Antigen (Rapid) - Final Cardiology Labs/Tests 09/17/20 05:30: WBC 11.2 H, RBC 3.49 L, Hgb 11.4 L, Hct 35.2 L, MCV 100.9 H, MCH 32.7 H, MCHC 32.4, Plt Count 205, MPV 11.3, Immature Gran % (Auto) 0.300, Neut % (Auto) 55.4, Lymph % (Auto) 37.2, [place] % (Auto) 6.7, Eos % (Auto) 0.1, Baso % (Auto) 0.3, Absolute Neuts (auto) 6.2, Nucleated RBC % 0 09/17/20 05:30: Sodium 141, Potassium 4.3, Chloride 109 H, Carbon Dioxide 31.0, Anion Gap 1 L, BUN 15, Creatinine 0.78, Est GFR (MDRD) Af Amer 100, Est GFR (MDRD) Non-Af 82, BUN/Creatinine Ratio 19.3, Glucose 90, Calcium 8.7, Total Bilirubin 0.40 Rhythm: EKG: ECHO: Stress Test: Cardiac Cath: PCI: CT Surgery: Holter monitor: EPS: PPM: CXR: Chest CT Scan: Physical Exam Const alert and oriented x3 Orientation / Consciousness: awake HEENT normocephalic Eyes no scleral icterus Neck supple Chest inspection of chest normal Resp normal respiratory effort Cardio regular rate and regular rhythm Rate: regular rate Extremity no pedal edema Skin no rashes or lesions noted Psych mental status grossly normal Assessment & Plan Assessment/Plan (1) Acute CHF: QUALIFIERS: Heart failure type: unspecified Qualified Code(s): I50.9 - Heart failure, unspecified PLAN: Appears compensated now. Patient has significant LV systolic dysfunction. Plan is to proceed with coronary angiography on Saturday. We are increasing Coreg today. (2) Wide QRS ventricular tachycardia: PLAN: Likely related to underlying cardiomyopathy. Continue beta-kathie. Visit Charges Inpatient E&M: 71677 [facility] Hosp L3
--- NOTE | 2020-09-17 16:01 | NURSING ---
report called to DECK SPECIALISTJoanne. to [id number] per . ICU staff in progress
[2020-09-17] MEDS: traZODone 50 MG Tablet PO (22:26)
[2020-09-18] VITALS (11 sets, daily range): BP systolic 104–120; BP diastolic 69–81; PULSE 74–104; RESP 18–20; TEMP 36.4–37.2; O2SAT 93–98
[2020-09-18] MEDS: Enoxaparin 100 MG/ML Syringe 90 MG SC ×2 (06:19→17:46)
[2020-09-18 06:28] LABS: Absolute Lymphocyte Count 3.64 X10^3/uL (0.83-4.51); Absolute Neutrophil Count 4.9 X10^3/uL (2.0-7.7); Basophil# 0.02 X10^3/uL; Basophil% 0.2 % (0-1); Eosinophil# 0.02 X10^3/uL; Eosinophils% 0.2 % (0-5); Hematocrit 32.9 % (37-47); Hemoglobin 11.2 g/dL (12.0-15.0); Lymphocyte # 3.64 X10^3/ul (0.83-4.51); Lymphocyte % 39.1 % (19-41); Mean Corpuscular Hgb 32.8 pg (27.0-32.0); Mean Corpuscular Volume 96.5 fL (81-99); Mean Platelet Vol. 11.1 fl (6.2-12.0); Monocyte# 0.69 X10^3/uL; Monocyte% 7.4 % (0-10); NRBC Flagged by Analyzer 0 % (0-5); Neutrophil # 4.91 X10^3/uL (2.7-7.7); Neutrophil % 52.9 % (47-70); Platelet Count 211 K/mm3 (150-450); RBC Distribution Width SD 45.9 fl (35.1-43.9); Red Blood Count 3.41 M/mm3 (4.2-5.4); White Blood Count 9.3 K/mm3 (4.4-11.0)
[2020-09-18 06:52] LABS: AST(SGOT) 30 U/L (15-37); Alanine Aminotransfer ALT/SGPT 57 U/L (13-56); Albumin, Serum 2.8 g/dL (3.2-5.0); Alkaline Phosphatase 73 U/L (45-117); Anion Gap 7 (5-15); BUN 12 mg/dL (7-18); BUN/Creat Ratio 18.4 RATIO (10-20); Calcium,Total 8.4 mg/dL (8.5-10.1); Chloride 108 mmol/L (98-107); Creatinine, Serum 0.65 mg/dL (0.55-1.02); EST Glomerular Filtration Rate 100 mL/min (>60); Est Glom Filt Rate - Afr Amer 122 mL/min (>60); Estimated Creatinine Clearance 86.43 ml/min; Globulin 2.9 g/dL (2.2-4.2); Glucose 87 mg/dL (74-106); Potassium 3.5 mmol/L (3.5-5.1); Protein, Total 5.7 g/dL (6.4-8.2); Sodium Level 141 mmol/L (136-145)
[2020-09-18] MEDS: Ipratropium/Albuterol Sulfate 3 ML AMPUL.NEB INHALATION ×4 (06:57→19:32)
--- NOTE | 2020-09-18 07:24 | PN.CC_ITS ---
Assessment & Plan Assessment/Plan (1) Acute respiratory failure with hypoxia and hypercapnia: PLAN: RECOMMENDATIONS: 1. Increase activity as tolerated 2. Walking oximetry prior to discharge. 3. Continue empiric antimicrobials pending species and sensitivities 4. Continue scheduled bronchodilators. Okay to wean prednisone over the next 12 to 14 days. 5. Encourage incentive spirometer use and mobilize patient as tolerated. 6. Tentative plans for cardiac catheterization next week. 7. Outpatient work-up for pulmonary status 8. Hemodynamically stable on room air. Will sign off from a critical care perspective. 9. Okay to follow-up as an outpatient with nurse practitioner in 2 weeks IMPRESSIONS: 1. Acute combined respiratory failure The patient presented to the hospital with rather acute onset shortness of breath and was emergently intubated in the emergency department after she failed to respond to noninvasive positive pressure ventilatory support. Initial plain film chest x-ray did reveal findings concerning for diffuse bilateral pneumonia versus pulmonary edema. The patient has been maintained on antimicrobials. Echocardiogram did reveal a severely depressed ejection fraction of 25%, making pulmonary edema a likely inciting factor for the patient's respiratory decompensation. She was able to be extubated on the morning of September 16. Cardiology is currently following with tentative plans for cardiac catheterization next week. The patient will be continued on empiric antimicrobials for now. Anticipate 7 days should be sufficient. In addition, scheduled bronchodilator therapy and steroids will be continued. Steroids can be weaned over the next 12 to 14 days. Continue to wean oxygen as tolerated. Patient will need an outpatient work-up for pulmonary status 2. Septic shock secondary to gram-negative pneumonia Resolved. Concern for underlying pulmonary infectious etiology. Sputum culture is now growing bacteria. Await species and sensitivity. The patient did have to be started on low-dose Levophed to maintain hemodynamic stability. She has since been weaned from all form of vasopressor support and remains hemodynamically stable. 3. Chronic tobacco dependency Nicotine replacement therapy can be offered to the patient while admitted to the hospital. Unclear history of COPD and/or severity of lung disease, given lack of PFTs in our system. Continue supportive measures with scheduled bronchodilators. Recommend outpatient pulmonary follow-up. 4. Wide-complex tachycardia/troponin elevation/heart failure with reduced ejection fraction Concern for demand ischemia in the setting of #1. Echocardiogram did reveal an ejection fraction of approximately 25%. Cardiology is currently following with tentative plans for catheterization next week. 5. Obesity/hypertension/hyperlipidemia/history of chronic pancreatitis Complicates care, management, recovery and prognosis. Subjective Subjective Patient did well overnight. No acute issues were reported. Patient feels subjective improved compared to previous. Patient still has occasional coughing, especially with ambulation. Objective Data Objective Data Vital Signs: Vital Signs Temp Pulse Resp BP Pulse Ox 36.4 C L 81 18 118/80 95 09/18/20 02:45 09/18/20 03:00 09/18/20 02:45 09/18/20 02:45 09/18/20 02:45 Oxygen Flow Rate (L/min) 0 Oxygen Delivery Method Room Air Weight: 85.7 kg Body Mass Index (BMI) 31.8 Intake & Output: Intake and Output for Last 24 Hours 09/16/20 09/17/20 09/18/20 23:59 23:59 23:59 Intake Total 2155.82 / 2155.82 1105.75 / 1105.75 650 / 650 Output Total 2100 / 2100 1400 / 1400 Balance 55.82 / 55.82 -294.25 / -294.25 650 / 650 Lab / Micro Data Result Diagrams: 09/18/20 06:03 09/18/20 06:03 Labs: Laboratory Results - last 24 hr 09/18/20 09/18/20 06:03 06:03 WBC 9.3 RBC 3.41 L Hgb 11.2 L Hct 32.9 L MCV 96.5 MCH 32.8 H MCHC 34.0 RDW Std Deviation 45.9 H RDW Coeff of Tony 13.0 Plt Count 211 MPV 11.1 Immature Gran % (Auto) 0.200 Neut % (Auto) 52.9 Lymph % (Auto) 39.1 [place] % (Auto) 7.4 Eos % (Auto) 0.2 Baso % (Auto) 0.2 Absolute Neuts (auto) 4.9 Absolute Lymphs (auto) 3.64 Nucleated RBC % 0 Sodium 141 Potassium 3.5 Chloride 108 H Carbon Dioxide 26.0 Anion Gap 7 BUN 12 Creatinine 0.65 Estim Creat Clear Calc 86.43 Est GFR (MDRD) Af Amer 122 Est GFR (MDRD) Non-Af 100 BUN/Creatinine Ratio 18.4 Glucose 87 Calcium 8.4 L Total Bilirubin 0.40 AST 30 ALT 57 H Alkaline Phosphatase 73 Total Protein 5.7 L Albumin 2.8 L Globulin 2.9 Albumin/Globulin Ratio 1.0 Micro: Microbiology 09/15/20 01:30 Blood Culture (Wb) - Left Wrist Blood Culture - Preliminary No growth in 48 hours. 09/15/20 01:55 Blood Culture (Wb) - Right Hand Blood Culture - Preliminary No growth in 48 hours. 09/15/20 04:00 Sputum, Induced/Lukens Gram Stain - Final 09/15/20 04:00 Sputum, Induced/Lukens Respiratory Culture - Preliminary Gram negative diplococci 09/15/20 01:55 Urine Catheter - Wolfe Urine Culture - Preliminary Gram positive liane 09/15/20 04:00 Mucosa - Nasopharyngeal Respiratory Panel (PCR) - Final 09/15/20 01:25 Urine Catheter - Wolfe Legionella Antigen - Final 09/15/20 01:25 Urine Catheter - Wolfe Streptococcus pneumoniae Antigen (M - Final 09/15/20 01:40 Interface Orders SARS-CoV-2 Antigen (Rapid) - Final Physical Exam Const alert, oriented x3 and no apparent distress General Appearance: cooperative Nutritional Appearance: obese HEENT normocephalic, head/scalp atraumatic and moist oral mucous membranes Eyes PERRL and EOMs intact bilaterally Neck supple General: trachea midline Chest Chest Narrative: Increased AP diameter Chest: symmetrical chest wall rise Resp Auscultation: diminished lung sounds; Negative for rales, rhonchi or wheezes Cardio regular rate and regular rhythm GI normal to inspection, nondistended, normoactive bowel sounds Extremity no clubbing, cyanosis or edema Skin no rashes or lesions noted Neuro oriented x3, CN's II-XII intact bilaterally, moves all extremities, no focal motor deficits, no sensory deficits noted and deep tendon reflexes 2+ bilaterally Charges/Coding Visit Charges Inpatient E&M: 83239 Subs Hosp L2
[2020-09-18] MEDS: Pantoprazole Sodium 40 MG Tablet PO (08:44)
[2020-09-18] MEDS: predniSONE 20 MG Tablet 40 MG PO (08:44)
[2020-09-18] MEDS: Aspirin 81 MG TAB.CHEW PO (08:44)
[2020-09-18] MEDS: guaiFENesin 600 MG Tablet PO ×2 (08:44→20:08)
[2020-09-18] MEDS: Carvedilol 6.25 MG Tablet PO ×2 (09:39→20:08)
--- NOTE | 2020-09-18 12:11 | PN.HOSP_ITS ---
Subjective Subjective Patient was seen and examined today, she has no complaints of any shortness of breath or chest discomfort. Patient will be scheduled to undergo cardiac catheterization tomorrow. Objective Data Objective Data Vital Signs: Vital Signs Temp Pulse Resp BP Pulse Ox 97.6 F L 104 H 20 H 119/81 H 98 09/18/20 08:41 09/18/20 10:46 09/18/20 10:46 09/18/20 08:41 09/18/20 08:41 Oxygen Flow Rate (L/min) 0 Oxygen Delivery Method Room Air Weight: 85.7 kg Body Mass Index (BMI) 31.8 Intake & Output: Intake and Output for Last 24 Hours 09/16/20 09/17/20 09/18/20 23:59 23:59 23:59 Intake Total 2155.82 / 2155.82 1105.75 / 1105.75 650 / 650 Output Total 2100 / 2100 1400 / 1400 Balance 55.82 / 55.82 -294.25 / -294.25 650 / 650 Lab / Micro Data Result Diagrams: 09/18/20 06:03 09/18/20 06:03 Labs: Laboratory Results - last 24 hr 09/18/20 09/18/20 06:03 06:03 WBC 9.3 RBC 3.41 L Hgb 11.2 L Hct 32.9 L MCV 96.5 MCH 32.8 H MCHC 34.0 RDW Std Deviation 45.9 H RDW Coeff of Tony 13.0 Plt Count 211 MPV 11.1 Immature Gran % (Auto) 0.200 Neut % (Auto) 52.9 Lymph % (Auto) 39.1 [place] % (Auto) 7.4 Eos % (Auto) 0.2 Baso % (Auto) 0.2 Absolute Neuts (auto) 4.9 Absolute Lymphs (auto) 3.64 Nucleated RBC % 0 Sodium 141 Potassium 3.5 Chloride 108 H Carbon Dioxide 26.0 Anion Gap 7 BUN 12 Creatinine 0.65 Estim Creat Clear Calc 86.43 Est GFR (MDRD) Af Amer 122 Est GFR (MDRD) Non-Af 100 BUN/Creatinine Ratio 18.4 Glucose 87 Calcium 8.4 L Total Bilirubin 0.40 AST 30 ALT 57 H Alkaline Phosphatase 73 Total Protein 5.7 L Albumin 2.8 L Globulin 2.9 Albumin/Globulin Ratio 1.0 Micro: Microbiology 09/15/20 01:55 Urine Catheter - Wolfe Urine Culture - Final Corynebact. pseudodiphtheritic 09/15/20 01:30 Blood Culture (Wb) - Left Wrist Blood Culture - Preliminary No growth in 48 hours. 09/15/20 01:55 Blood Culture (Wb) - Right Hand Blood Culture - Preliminary No growth in 48 hours. 09/15/20 04:00 Sputum, Induced/Lukens Gram Stain - Final 09/15/20 04:00 Sputum, Induced/Lukens Respiratory Culture - Preliminary Gram negative diplococci 09/15/20 04:00 Mucosa - Nasopharyngeal Respiratory Panel (PCR) - Final 09/15/20 01:25 Urine Catheter - Wolfe Legionella Antigen - Final 09/15/20 01:25 Urine Catheter - Wolfe Streptococcus pneumoniae Antigen (M - Final 09/15/20 01:40 Interface Orders SARS-CoV-2 Antigen (Rapid) - Final Physical Exam Const alert, oriented x3, no apparent distress and average body habitus HEENT head/scalp atraumatic, moist oral mucous membranes and oropharynx normal Head and Scalp: normocephalic Eyes PERRL, EOMs intact bilaterally and conjunctivae normal Neck no lymphadenopathy, supple and no JVD Resp normal respiratory effort, no retractions, no use of accessory muscles and clear to auscultation bilaterally Cardio regular rate, regular rhythm, S1 normal heart sound, S2 normal heart sound, no gallops and no clicks GI normal to inspection, nondistended, normoactive bowel sounds, soft to palpation, non-tender and non-distended Extremity normal to inspection, full ROM and no clubbing, cyanosis or edema Skin no rashes or lesions noted, no wounds and skin turgor normal Neuro oriented x3, CN's II-XII intact bilaterally, no focal motor deficits and no sensory deficits noted Sensorium / Orientation: awake and alert Motor Exam: strength 5/5 throughout Psych affect normal Assessment & Plan Assessment/Plan (1) Acute CHF: QUALIFIERS: Heart failure type: unspecified Qualified Code(s): I50.9 - Heart failure, unspecified PLAN: 1. Acute combined respiratory failure probably secondary to septic shock from bilateral pneumonia-continue antibiotic coverage, patient appears stable #2 septic shock-secondary to community-acquired pneumonia-patient is on Zosyn #3 acute CHF-etiology unclear, cardiology is participating in her care #4 chronic obstructive pulmonary disease #5 wide QRS ventricular tachycardia-cardiology is participating in her care #6 hypokalemia-resolved #7 troponin elevation-indicative of non-STEMI, patient will undergo cardiac catheterization tomorrow #8 cardiomyopathy-etiology unclear at this point, EF is reduced, patient will undergo a cardiac catheterization tomorrow #9 LV thrombus-patient is currently anticoagulated Visit Charges Inpatient E&M: 71596 Subs Hosp L2
[2020-09-18] MEDS: Temazepam 15 MG Capsule 30 MG PO (20:08)
--- NOTE | 2020-09-18 20:09 | NURSING ---
Pt requesting to have HS meds at this time so she can get to sleep.
[2020-09-18] MEDS: 0.9% Saline Lock 10 ML Syringe IV (21:22)
[2020-09-19] VITALS (23 sets, daily range): BP systolic 115–169; BP diastolic 67–120; PULSE 76–147; RESP 14–22; TEMP 36.4–36.8; O2SAT 89–98
[2020-09-19] MEDS: Aspirin 81 MG TAB.CHEW PO (05:53)
[2020-09-19] MEDS: Carvedilol 6.25 MG Tablet PO (05:54)
--- NOTE | 2020-09-19 05:55 | EKG12_ITS ---
Test Reason : AM EKG Blood Pressure : / mmHG Vent. Rate : 130 BPM Atrial Rate : 130 BPM P-R Int : 118 ms QRS Dur : 136 ms QT Int : 360 ms P-R-T Axes : 083 088 058 degrees QTc Int : 529 ms Sinus tachycardia Left bundle branch block T wave abnormality, consider inferolateral ischemia Abnormal ECG When compared with ECG of 15-SEP-2020 01:46, Sinus rhythm has replaced Wide QRS tachycardia Confirmed by YENNY ELDER, BETTY ([id number]), editor dictionary JOSE EDUARDO VIVAS ([id number]) on 09/22/2020 11:22:34 AM Referred By: DR SCHMID Confirmed By:BETTY RAMON MD
[2020-09-19] MEDS: LORazepam 2 MG/ML Syringe 0.5 MG IV (06:13)
[2020-09-19] MEDS: 0.9% Saline Lock 10 ML Syringe IV (06:13)
[2020-09-19 06:46] LABS: Absolute Lymphocyte Count 3.54 X10^3/uL (0.83-4.51); Absolute Neutrophil Count 5.2 X10^3/uL (2.0-7.7); Basophil# 0.04 X10^3/uL; Basophil% 0.4 % (0-1); Eosinophil# 0.06 X10^3/uL; Eosinophils% 0.6 % (0-5); Hematocrit 37.2 % (37-47); Hemoglobin 12.4 g/dL (12.0-15.0); Lymphocyte # 3.54 X10^3/ul (0.83-4.51); Lymphocyte % 36.9 % (19-41); Mean Corp Hgb Conc 33.3 g/dL (32-36); Mean Corpuscular Hgb 32.5 pg (27.0-32.0); Mean Corpuscular Volume 97.4 fL (81-99); Mean Platelet Vol. 11.5 fl (6.2-12.0); Monocyte# 0.74 X10^3/uL; Monocyte% 7.7 % (0-10); NRBC Flagged by Analyzer 0 % (0-5); Neutrophil # 5.19 X10^3/uL (2.7-7.7); Neutrophil % 54.1 % (47-70); Platelet Count 236 K/mm3 (150-450); RBC Distribution Width CV 12.8 % (11.6-14.6); RBC Distribution Width SD 45.7 fl (35.1-43.9); Red Blood Count 3.82 M/mm3 (4.2-5.4); White Blood Count 9.6 K/mm3 (4.4-11.0)
[2020-09-19] MEDS: Ipratropium/Albuterol Sulfate 3 ML AMPUL.NEB INHALATION ×4 (07:05→14:16)
[2020-09-19 07:12] LABS: ALB/GLOB Ratio 0.9 RATIO (0.9-2.4); AST(SGOT) 47 U/L (15-37); Alanine Aminotransfer ALT/SGPT 66 U/L (13-56); Albumin, Serum 3.1 g/dL (3.2-5.0); Alkaline Phosphatase 76 U/L (45-117); Anion Gap 12 (5-15); BUN 15 mg/dL (7-18); BUN/Creat Ratio 19.8 RATIO (10-20); Calcium,Total 8.5 mg/dL (8.5-10.1); Chloride 107 mmol/L (98-107); Creatinine, Serum 0.76 mg/dL (0.55-1.02); EST Glomerular Filtration Rate 84 mL/min (>60); Est Glom Filt Rate - Afr Amer 102 mL/min (>60); Estimated Creatinine Clearance 73.92 ml/min; Globulin 3.3 g/dL (2.2-4.2); Glucose 160 mg/dL (74-106); Potassium 3.1 mmol/L (3.5-5.1); Protein, Total 6.4 g/dL (6.4-8.2); Sodium Level 141 mmol/L (136-145)
[2020-09-19] MEDS: Potassium Chloride Oral Tablet 20 MEQ 40 MEQ PO (07:41)
[2020-09-19] MEDS: Potassium Chloride 10mEq/100mL 10 MEQ/100 ML IV.SOLN. 100 MEQ IV BOLUS (07:47)
--- NOTE | 2020-09-19 09:29 | CL.D_ITS ---
Patient Name: TABITHA FISH Study Date: 09/19/2020 Performing: Alfonso Green MD Ht: 64.96 inches 165 cm : 1965 Wt: 189.6 lbs 86 kg Age: 54 Gender: female BSA: 1.93 PROCEDURE(S) PERFORMED [id number] CLINICAL PROFILE AND INDICATIONS Indications: Suspected CAD Heart Failure: NYHA Class: 3, Newly Diagnosed: Yes, Heart Failure Type: Systolic Stress/Imaging Stress/Image Study Performed: No CAD Presentations: No Sxs, no angina. CONCLUSIONS Non obstructive coronary arteries Global LV systolic dysfunction- Severe RECOMMENDATIONS Minimal CAD. Severe left ventricular systolic dysfunction. Will recommend medical therapy. DESCRIPTION OF PROCEDURE The patient arrived to the procedure lab. The risks and benefits of the procedure as well as a full d escription of our services here and current unavailability of surgical backup were fully explained to the patient and/or their significant other prior to the catheterization. The Timeout was completed, verifying the correct patient and procedure. The patient's procedural site was prepped and draped in the usual fashion. Local anesthetic was given subcutaneously to right radial region with Lidocaine 2% . Using a modified Seldinger technique, arterial access was obtained via the right radial artery, a 6 Fr sheath was inserted. Left Coronary Artery selective angiography was performed in multiple views u sing a 5 Fr. 4.0 Goldsmith catheter. Right Coronary Artery selective angiography was then performed in mu ltiple views using a 5 Fr. 4.0 Goldsmith catheter.The arterial sheath was pulled and a TR Band was applie d for hemostasis-12 cc air CORONARY ANGIOGRAPHY DOMINANCE: Right Dominant LEFT HEART ASSESSMENT Left Ventricular Ejection Fraction: by Echo 25 % Global Hypokinesis - Severe Depressed Left Ventricular systolic function LEFT MAIN: Angiographically normal LEFT ANTERIOR DESCENDING ARTERY: No significant disease noted CIRCUMFLEX ARTERY: No significant disease noted RIGHT CORONARY ARTERY: Mild luminal irregularities COMPLICATIONS No Complications PROCEDURE MEDICATIONS Versed 1 mg IV Fentanyl 50 mcg IV Versed 1 mg IV Fentanyl 25 mcg IV Oxygen: 2 L/min via nasal cannula Heparin given IA 09/19/2020 09:10:24 Verapamil 2.5mg, Ntg 100mcgs, 3000 units of Heparin given IA 09/19/2020 09:10:24 SUMMARY OF HEMODYNAMIC DATA Time AIR REST ECG 08:50:24 AO 106/82 (93) SA 09:13:41 Signed By Alfonso Green MD On 09/19/2020 9:28:12 AM Alfonso Green MD
--- NOTE | 2020-09-19 09:32 | PN.CARD_ITS ---
Subjective Subjective Patient seen and evaluated. Underwent cardiac catheterization this morning Objective Data Vital Signs: Vital Signs Temp Pulse Resp BP Pulse Ox 97.8 F 76 18 137/99 H 91 09/19/20 06:42 09/19/20 07:05 09/19/20 07:05 09/19/20 06:42 09/19/20 07:05 Oxygen Flow Rate (L/min) 2 Oxygen Delivery Method Nasal Cannula Weight: 188 lb 7.924 oz Body Mass Index (BMI) 31.8 Intake & Output: Intake and Output for Last 24 Hours 09/17/20 09/18/20 09/19/20 23:59 23:59 23:59 Intake Total 1105.75 / 1105.75 2190 / 2430 313.54 / 313.54 Output Total 1400 / 1400 Balance -294.25 / -294.25 2190 / 2430 313.54 / 313.54 Lab / Micro Data Result Diagrams: 09/19/20 06:15 09/19/20 06:15 Labs: Laboratory Results - last 24 hr 09/19/20 09/19/20 06:15 06:15 WBC 9.6 RBC 3.82 L Hgb 12.4 Hct 37.2 MCV 97.4 MCH 32.5 H MCHC 33.3 RDW Std Deviation 45.7 H RDW Coeff of Tony 12.8 Plt Count 236 MPV 11.5 Immature Gran % (Auto) 0.300 Neut % (Auto) 54.1 Lymph % (Auto) 36.9 [place] % (Auto) 7.7 Eos % (Auto) 0.6 Baso % (Auto) 0.4 Absolute Neuts (auto) 5.2 Absolute Lymphs (auto) 3.54 Nucleated RBC % 0 Sodium 141 Potassium 3.1 L Chloride 107 Carbon Dioxide 22.0 Anion Gap 12 BUN 15 Creatinine 0.76 Estim Creat Clear Calc 73.92 Est GFR (MDRD) Af Amer 102 Est GFR (MDRD) Non-Af 84 BUN/Creatinine Ratio 19.8 Glucose 160 H Calcium 8.5 Total Bilirubin 0.40 AST 47 H ALT 66 H Alkaline Phosphatase 76 Total Protein 6.4 Albumin 3.1 L Globulin 3.3 Albumin/Globulin Ratio 0.9 Micro: Microbiology 09/15/20 04:00 Sputum, Induced/Lukens Gram Stain - Final 09/15/20 04:00 Sputum, Induced/Lukens Respiratory Culture - Final Neisseris meningitidis 09/15/20 01:55 Urine Catheter - Wolfe Urine Culture - Final Corynebact. pseudodiphtheritic 09/15/20 01:30 Blood Culture (Wb) - Left Wrist Blood Culture - Preliminary No growth in 48 hours. 09/15/20 01:55 Blood Culture (Wb) - Right Hand Blood Culture - Preliminary No growth in 48 hours. 09/15/20 04:00 Mucosa - Nasopharyngeal Respiratory Panel (PCR) - Final 09/15/20 01:25 Urine Catheter - Wolfe Legionella Antigen - Final 09/15/20 01:25 Urine Catheter - Wolfe Streptococcus pneumoniae Antigen (M - Final 09/15/20 01:40 Interface Orders SARS-CoV-2 Antigen (Rapid) - Final Cardiology Labs/Tests 09/19/20 06:15: WBC 9.6, RBC 3.82 L, Hgb 12.4, Hct 37.2, MCV 97.4, MCH 32.5 H, MCHC 33.3, Plt Count 236, MPV 11.5, Immature Gran % (Auto) 0.300, Neut % (Auto) 54.1, Lymph % (Auto) 36.9, [place] % (Auto) 7.7, Eos % (Auto) 0.6, Baso % (Auto) 0.4, Absolute Neuts (auto) 5.2, Nucleated RBC % 0 09/19/20 06:15: Sodium 141, Potassium 3.1 L, Chloride 107, Carbon Dioxide 22.0, Anion Gap 12, BUN 15, Creatinine 0.76, Est GFR (MDRD) Af Amer 102, Est GFR (MDRD) Non-Af 84, BUN/Creatinine Ratio 19.8, Glucose 160 H, Calcium 8.5, Total Bilirubin 0.40 Rhythm: EKG: ECHO: Stress Test: Cardiac Cath: PCI: CT Surgery: Holter monitor: EPS: PPM: CXR: Chest CT Scan: Physical Exam Const oriented x3 and healthy appearing Orientation / Consciousness: awake HEENT normocephalic Eyes PERRL and conjunctivae normal Neck supple, no JVD and no carotid bruits Chest inspection of chest normal Resp normal respiratory effort and clear to auscultation bilaterally Cardio Palpation: normal PMI Rate: regular rate Rhythm: regular rhythm Heart Sounds: S1 normal and S2 normal Peripheral Pulses: pulses 2+ throughout GI normal to inspection, nondistended, normoactive bowel sounds Extremity normal to inspection and no clubbing, cyanosis or edema Psych mental status grossly normal Assessment & Plan Assessment/Plan (1) Acute CHF: QUALIFIERS: Heart failure type: unspecified Qualified Code(s): I50.9 - Heart failure, unspecified PLAN: Appears compensated now. Patient has significant LV systolic dysfunction. Patient underwent cardiac catheterization with evaluating the coronary anatomy which demonstrated no obstructive coronary disease. * Will recommend continuing carvedilol * Will start VIVI inhibitor * Continue low-dose Lasix * Will reevaluate with a limited echocardiogram to see whether there is truly an LV thrombus or not. If there is then anticoagulation will be required (2) Wide QRS ventricular tachycardia: PLAN: Likely related to underlying cardiomyopathy. Continue beta-kathie. * Continue VIVI inhibitor * Will reevaluate left ventricular function in 90 days and depending on LV function will decide on whether patient is a candidate for an ICD and a DEVOPS ENGINEER due to the left bundle branch block * * Thank you for allowing me to participate in the care of your patient. Please don't hesitate to call if any issues arise.
[2020-09-19] MEDS: 0.9% Normal Saline 1,000 ML 30 ML IV (10:09)
--- NOTE | 2020-09-19 10:21 | EKG12_ITS ---
Test Reason : AM EKG Blood Pressure : / mmHG Vent. Rate : 091 BPM Atrial Rate : 091 BPM P-R Int : 152 ms QRS Dur : 146 ms QT Int : 466 ms P-R-T Axes : 085 077 110 degrees QTc Int : 573 ms Normal sinus rhythm Left bundle branch block Abnormal ECG Confirmed by CARSON ELDER, TALI ([id number]), online editor JOSE EDUARDO VIVAS ([id number]) on 09/28/2020 1:17:02 PM Referred By: DR PEARSON Confirmed By:TALI BYRD MD
[2020-09-19] MEDS: predniSONE 20 MG Tablet 40 MG PO (11:43)
[2020-09-19] MEDS: guaiFENesin 600 MG Tablet PO (11:43)
[2020-09-19] MEDS: Pantoprazole Sodium 40 MG Tablet PO (11:43)
[2020-09-19] MEDS: Furosemide 40 MG Tablet PO (11:44)
[2020-09-19] MEDS: Lisinopril 5 MG Tablet PO (11:44)
--- NOTE | 2020-09-19 14:15 | CASEMGMT ---
Per Leo RN, pt does not qualify for home oxygen at this time. This RN CM to follow for Eliquis cost and 30 day free trial card to be provided. Edelmira COTA CM
--- NOTE | 2020-09-19 14:18 | CPS ---
patient informed rt that nursing removed oxygen. no shortness of breath noted.
--- NOTE | 2020-09-19 14:22 | DS.PCM_ITS ---
Providers Date of Admission: 09/15/20 Primary Care Physician: Penny Primary Care Phys Consultations 09/15/20 03:48 Consult: Cardiology Routine Consulting Provider: Alfonso Green Reason for Consult: Resp failure, CHF Exacerbation, COPD Exacerbation EMERGENT Consult: No Notified: Yes Date Notified:: 09/15/20 Time Notified: 02:28 Method of Notification: cortext Consult: Medical Billing Manager / Pulmonary Medicine Routine Consulting Provider: Raj Khan Reason for Consult: Resp failure, COPD exac, CHF exac EMERGENT Consult: No Notified: Yes Date Notified:: 09/15/20 Time Notified: 02:29 Method of Notification: Cortext Reason For Visit: RESP FAILURE, CHF EXAC, COPD EXAC, LACTIC ACIDOSIS Diagnosis Discharge Diagnosis (1) Acute CHF: Status: Acute Code(s): I50.9 - Heart failure, unspecified Qualifiers: Heart failure type: unspecified Qualified Code(s): I50.9 - Heart failure, unspecified (2) Wide QRS ventricular tachycardia: Status: Acute Code(s): I47.2 - Ventricular tachycardia Medications at Discharge Home Medications albuterol sulfate 2 puff INHALATION Q4H PRN PRN 09/15/20 amoxicillin-pot clavulanate 1 tab PO BID #8 tab 09/19/20 aspirin 81 mg PO DAILY@0800 #30 tab 09/19/20 carvedilol 12.5 mg PO BID #60 tab 09/19/20 furosemide 40 mg PO DAILY #30 tab 09/19/20 lisinopril 5 mg PO DAILY #30 tab 09/19/20 Hospital Course Operations None Procedures 2-D Echocardiogram, Cardiac catheterization, Intubation and PICC line placement Summary of Care Provided Minutes Spent on Discharge: 41 Hospital Course: Ms. Meier is a 54-year-old female who presented to the emergency department at [facility] on 09/15/2020 with a chief complaint of shortness of breath. She was reporting worsening dyspnea, wheezing, and dry cough without fever or chills for approximately 48 hours prior to presentation. [facility] she had perioral oral cyanosis was mottled, had thready pulses and was hypotensive with systolic blood pressures in the 80s. She was placed on BiPAP but eventually required intubation in the emergency department. Her initial ABG showed a pH of 7.049, PCO2 of 71, and PO2 of 72. She was initiated on empiric antibiotics. A CTA was obtained to evaluate for pulmonary embolism and this was negative. She did require low-dose Levophed for her hypotension for short period of time. 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 She was treated while hospitalized with Zosyn and sent home with Augmentin to complete her antibiotic course. All other cultures were negative. An echocardiogram was performed on 09/16/2020 that showed normal LV size with an apical thrombus and an EF of 25% with stage I diastolic dysfunction. It was reported that there was severe global hypokinesis of the LV. She was initiated on Lovenox therapeutic dosing. She was able to be extubated on 09/16/2020. With her abnormal echo she was taken to the [facility] on the a.m. of 09/19/2020 which showed minimal coronary artery disease and severe left ventricular systolic dysfunction. She was started on Coreg and lisinopril with her depressed EF once her hemodynamics had stabilized and tolerated these well. She will be discharged on aspirin, Coreg, and lisinopril along with Lasix 40 mg daily. A repeat echocardiogram was performed on 09/20/2020 to verify the apical thrombus and the repeat study did not show thrombus. Per discussion with cardiology it was felt that she was safe to discharge home off anticoagulation and they would follow-up with her in the outp atient office in 4 weeks. Upon discharge she indicates that she has no intent to ever smoke again. Ambulatory pulse ox was performed and the patient did not require oxygen at discharge. She will follow-up with Dr. Green in 4 weeks, with Dr. Mason in 2 to 4 weeks, and it was recommended that she follow-up with her primary care physician in 1 week. Discharge diagnoses Septic shock-resolved Acute hypoxic and hypercapnic respiratory failure-resolved Neisseria meningitidis pneumonia Hypokalemia HFrEF secondary to nonischemic cardiomyopathy NSTEMI type II Hyperlipidemia Hypertension Chronic pancreatitis COPD--> will need PFTs as an outpatient Ventricular tachycardia Tobacco abuse Physical Exam Const alert, oriented x3, no apparent distress, average body habitus and well nourished General Appearance: cooperative, comfortable, well kempt and well developed Orientation / Consciousness: awake, oriented to person, oriented to place and oriented to time Exam Limitations: no limitations Nutritional Appearance: overweight HEENT normocephalic, head/scalp atraumatic, hearing grossly normal bilaterally, moist oral mucous membranes, oropharynx normal and gingiva normal Mouth: oral and palatal mucosa normal Eyes PERRL, EOMs intact bilaterally and conjunctivae normal Neck no lymphadenopathy, supple, no JVD and no carotid bruits Resp normal respiratory effort, no retractions and no use of accessory muscles Resp Narrative: Diffusely diminished Auscultation: Negative for crackles, rales, rhonchi or wheezes Cardio regular rate, regular rhythm, S1 normal heart sound, S2 normal heart sound, no murmurs, no rub, no gallops, no clicks and no JVD GI normal to inspection, nondistended, normoactive bowel sounds, soft to palpation, non-tender and non-distended Extremity normal to inspection, full ROM and no clubbing, cyanosis or edema Skin no rashes or lesions noted, no wounds, skin turgor normal and no jaundice Neuro oriented x3, CN's II-XII intact bilaterally and moves all extremities Sensorium / Orientation: awake, alert, oriented to person, oriented to place and oriented to time Speech: speech normal Motor Exam: strength 5/5 throughout Psych affect normal Mood & Affect: Negative for depressed or anxious ABG / Lab / Microbiology Data Result Diagrams: 09/19/20 06:15 09/19/20 06:15 Laboratory: Laboratory Results - last 24 hr 09/19/20 09/19/20 06:15 06:15 WBC 9.6 RBC 3.82 L Hgb 12.4 Hct 37.2 MCV 97.4 MCH 32.5 H MCHC 33.3 RDW Std Deviation 45.7 H RDW Coeff of Tony 12.8 Plt Count 236 MPV 11.5 Immature Gran % (Auto) 0.300 Neut % (Auto) 54.1 Lymph % (Auto) 36.9 [place]ent % (Auto) 7.7 Eos % (Auto) 0.6 Baso % (Auto) 0.4 Absolute Neuts (auto) 5.2 Absolute Lymphs (auto) 3.54 Nucleated RBC % 0 Sodium 141 Potassium 3.1 L Chloride 107 Carbon Dioxide 22.0 Anion Gap 12 BUN 15 Creatinine 0.76 Estim Creat Clear Calc 73.92 Est GFR (MDRD) Af Amer 102 Est GFR (MDRD) Non-Af 84 BUN/Creatinine Ratio 19.8 Glucose 160 H Calcium 8.5 Total Bilirubin 0.40 AST 47 H ALT 66 H Alkaline Phosphatase 76 Total Protein 6.4 Albumin 3.1 L Globulin 3.3 Albumin/Globulin Ratio 0.9 Microbiology: Microbiology 09/15/20 04:00 Gram Stain - Final Sputum, Induced/Lukens Respiratory Culture - Final Neisseris meningitidis Microbiology 09/15/20 04:00 Sputum, Induced/Lukens Gram Stain - Final 09/15/20 04:00 Sputum, Induced/Lukens Respiratory Culture - Final Neisseris meningitidis 09/15/20 01:55 Urine Catheter - Wolfe Urine Culture - Final Corynebact. pseudodiphtheritic 09/15/20 01:30 Blood Culture (Wb) - Left Wrist Blood Culture - Preliminary No growth in 48 hours. 09/15/20 01:55 Blood Culture (Wb) - Right Hand Blood Culture - Preliminary No growth in 48 hours. 09/15/20 04:00 Mucosa - Nasopharyngeal Respiratory Panel (PCR) - Final 09/15/20 01:25 Urine Catheter - Wolfe Legionella Antigen - Final 09/15/20 01:25 Urine Catheter - Wolfe Streptococcus pneumoniae Antigen (M - Final 09/15/20 01:40 Interface Orders SARS-CoV-2 Antigen (Rapid) - Final D/C Instructions Discharge Diet: Low fat / Low cholesterol Discharge Activity: Return to Normal Activity Call your doctor if you observe: Shortness of breath, Swelling in the ankles and Chest pain Meaningful Use Info Meaningful Use Diagnoses (Choose all that apply): CHF CHF VIVI/ARB ordered at discharge?: Yes Documented LVEF (%): 20 Discharge Plan Admission Admit Date/Time: 09/15/20 02:36 Primary Reason for Your Visit: Shortness of Breath Attending Provider: Elyssa Neil Primary Care Provider: Care Physician,No Primary Consulting Providers: Alfonso Green ; Raj Khan Instructions Patient Instructions: Heart Failure: Tracking Your Weight, Heart Failure: Making Changes to Your Diet, Heart Failure: Medications to Help Your Heart, Care for COPD, Heart Failure Discharge Orders/Prescriptions Prescriptions: New furosemide 40 mg Tablet 40 mg PO DAILY Qty: 30 RF: 0 carvedilol 12.5 mg Tablet 12.5 mg PO BID Qty: 60 RF: 2 aspirin 81 mg Tablet,Chewable 81 mg PO DAILY@0800 Qty: 30 RF: 11 lisinopril 5 mg Tablet 5 mg PO DAILY Qty: 30 RF: 1 amoxicillin-pot clavulanate 1,000-62.5 mg tablet extended release 12 hr 1 tab PO BID Qty: 8 RF: 0 Continued albuterol sulfate 90 mcg/actuation HFA aerosol inhaler 2 puff INHALATION Q4H PRN PRN (Reason: Cough) RF: 0 Discontinued ondansetron HCl [Zofran] 4 mg Tablet 4 mg PO Q8H PRN (Reason: Shortness Of Breath) RF: 0 Referrals / Follow Up: Alfonso Green MD [STAFF PHYSICIAN] - (4 weeks) Raj Khan DO [STAFF PHYSICIAN] - (2-4 weeks) Care Physician,No Primary [Primary Care Provider] - Disposition Disposition (needs filled in before D/C Order can be placed): Home, self care Visit Charges Inpatient E&M: 30344 Disch Hosp
--- NOTE | 2020-09-19 16:05 | PHA.DC.MC ---
Pharmacy Service has performed discharge medication reconciliation and counseling for this patient. 1. ASPIRIN 81MG PO DAILY 2. AUGMENTIN 1000MG PO BID X 4 DAYS 3. CARVEDILOL 12.5MG PO BID 4. FUROSEMIDE 40MG PO DAILY 5. LISINOPRIL 5MG PO DAILY The patient's discharge medication list was reviewed for discrepancies and discrepancies were resolved. Home Medications albuterol sulfate 2 puff INHALATION Q4H PRN PRN 09/15/20 amoxicillin-pot clavulanate 1 tab PO BID #8 tab 09/19/20 aspirin 81 mg PO DAILY@0800 #30 tab 09/19/20 carvedilol 12.5 mg PO BID #60 tab 09/19/20 furosemide 40 mg PO DAILY #30 tab 09/19/20 lisinopril 5 mg PO DAILY #30 tab 09/19/20 The patient was counseled on the following discharge medications and changes in medications for homegoing were reviewed. The Reason for Use, instructions for use, and potential side effects were reviewed for all new medications. The patient's questions regarding all of their medications were answered. The patient was able to verbally demonstrate an understanding of their discharge medications.
--- NOTE | 2020-09-20 12:19 | CASEMGMT ---
CIPRIANO STEWART Discharge Follow Up Phone Call: HAILY:???12? Strata: 3 Call Date: 09.20.20 Discharge Date: 09.19.20 Time of Call: 1215 Duration: 4 min Admitting Dx: resp failure, CHF exac, COPD exac, lactic acidosis CIPRIANO STEWART completed follow up phone call after recent hospitalization. Pt states she is having a good day today as it is her birthday. She states she was able to pickling operator all of her medications without difficulty, except she did not get the protonix. Pt has appt with Dr. Green and Dr. Mason on October 07. She currently does not have a PCP and states she will get a new one. She asked about who she could see for her panic attacks and anxiety. States she received a medication in the hospital that really helped her and she needs to follow up with someone to see if she can have at home. Gave her the phone number to her insurance to call for providers. Pt states she has not started smoking and her family is being very supportive of this. Pt appreciative of care received and became tearful during call stating everybody is fabulous. Pt denied further questions or concerns regarding dc medications or instructions.
== END 2020-09-19 17:04 | disposition home or self-care (01) | DRG 720 ==
LOC: ED 02:22 → ICU 03:14 → PCU 09-17 16:34
PROVIDERS: Internal Medicine; Internal Medicine Critical Care Medicine; Admitting Provider Family Medicine; Emergency Provider Emergency Medicine; Visit Provider Internal Medicine
DX: A41.59 Other Gram-negative sepsis (principal); J15.6 Pneumonia due to other Gram-negative bacteria; R65.21 Severe sepsis with septic shock; J44.0 Chronic obstructive pulmonary disease with (acute) lower respiratory infection; J44.1 Chronic obstructive pulmonary disease with (acute) exacerbation; J96.01 Acute respiratory failure with hypoxia; J96.02 Acute respiratory failure with hypercapnia; I21.A1 Myocardial infarction type 2; I47.2 Ventricular tachycardia; E87.6 Hypokalemia; I42.8 Other cardiomyopathies; I11.0 Hypertensive heart disease with heart failure; I50.21 Acute systolic (congestive) heart failure; I25.10 Atherosclerotic heart disease of native coronary artery without angina pectoris; E78.5 Hyperlipidemia, unspecified; K86.1 Other chronic pancreatitis; K59.09 Other constipation; G89.29 Other chronic pain; F17.210 Nicotine dependence, cigarettes, uncomplicated; E66.9 Obesity, unspecified; Z68.31 Body mass index [BMI] 31.0-31.9, adult; Z79.899 Other long term (current) drug therapy
CPT/HCPCS: 31500; 31720; 36415; 36569; 36600; 51702; 71045; 71275; 80048; 80053; 80061; 81001; 82803; 82962; 83036; 83605; 83690; 83735; 83880; 84145; 84443; 84484; 85025; 85610; 85730; 87040; 87070; 87077; 87086; 87088; 87205; 87426; 87449; 87633; 87641; 93005; 93306; 93308; 93454; 94002; 94003; 94640; 94660; 97162; 97166; 97802; 97803; 99152; 99153; 99251; 99285; J7030; J7040; J7050; Q9957; Q9967; A4216; C1769; C1894; C8924; C8929; G0463; J0330; J0696; J1940; J3010; J3490

== ENCOUNTER 2020-09-24 02:34 | Emergency (ER) | payer MEDICAID, SELFPAY ==
[2020-09-15 09:34] VITALS: BMI 31.8
[2020-09-24 02:35] VITALS: BP 147/104; PULSE 96; RESP 19; TEMP 36.4; O2SAT 99; BMI 30.4
[2020-09-24 02:39] VITALS: O2SAT 100
--- NOTE | 2020-09-24 02:43 | ED.RN ---
no old ekgs
--- NOTE | 2020-09-24 02:47 | RAD_ITS ---
STUDY: X-RAY CHEST REASON FOR EXAM: Female, 55 years old. sob TECHNIQUE: Single AP portable view of the chest. COMPARISON: 08/11/2019 FINDINGS: There is hyperinflation of the lungs consistent with chronic obstructive lung disease (COPD). Lungs are clear. Calcified right lower lobe granuloma. There is no demonstrated pleural abnormality. Normal size heart. Normal mediastinum and dinesh. Normal visualized pulmonary arteries. Normal visualized aortic arch and descending thoracic aorta. Normal visualized thoracic spine. Normal visualized ribs, clavicles, and shoulders. There is no demonstrated abnormality of the visualized soft tissue structures of the upper abdomen. RAD/Chest 1 View (Portable) IMPRESSION: COPD. Lungs are clear. Electronically Signed: Isac Mohr DO at 3:14 EDT Tel , Service support ,
--- NOTE | 2020-09-24 02:48 | EKG12_ITS ---
Test Reason : CP Blood Pressure : / mmHG Vent. Rate : 091 BPM Atrial Rate : 091 BPM P-R Int : 164 ms QRS Dur : 144 ms QT Int : 406 ms P-R-T Axes : 079 084 -61 degrees QTc Int : 499 ms Normal sinus rhythm Left bundle branch block Abnormal ECG Confirmed by YENNY ELDER, BETTY ([id number]), script editor JOSE EDUARDO VIVAS ([id number]) on 09/27/2020 1:42:45 PM Referred By: DEJA Confirmed By:BETTY RAMON MD
--- NOTE | 2020-09-24 02:57 | EDS_ITS ---
HPI History of Present Illness Chief Complaint: Shortness of Breath Informant: patient and spouse/S.O. Onset/Context/Timing Onset: Days Context: Gradual Onset Timing: Waxes and wanes Current Severity: Mild Maximum Severity: Moderate Narrative Narrative: Patient presents with shortness of breath secondary to what she be lieves to be panic attacks. Patient was admitted to the hospital last week and required intubation. She had an NSTEMI. Patient states she did a lot of anxiety when she was in the hospital but I discharged the hospitalist did not feel that she needed to go home on her anxiety medicine. Patient states she has been having anxiety and panic attacks since she was discharged. states is been ongoing for the past couple of days. She states when it gets severe she gets short of breath and has some chest pressure. Patient did quit smoking after her last hospital admission. [facility] Medical History Acute respiratory failure with hypoxia and hypercapnia (09/15/20) Cervical cancer Constipation COPD (chronic obstructive pulmonary disease) COPD with asthma Essential (primary) hypertension HFrEF (heart failure with reduced ejection fraction) (09/15/20) History of cervical cancer History of non-ST elevation myocardial infarction (NSTEMI) (09/15/20) History of pancreatitis HLD (hyperlipidemia) Left bundle branch block (LBBB) Nicotine dependence Non-ischemic cardiomyopathy Obesity Home Medications albuterol sulfate 2 puff INHALATION Q4H PRN PRN 09/15/20 [History Last Taken Unknown] aspirin 81 mg PO DAILY@0800 #30 tab 09/19/20 [Rx Last Taken Unknown] carvedilol 12.5 mg PO BID #60 tab 09/19/20 [Rx Last Taken Unknown] furosemide 40 mg PO DAILY #30 tab 09/19/20 [Rx Last Taken Unknown] lisinopril 5 mg PO DAILY #30 tab 09/19/20 [Rx Last Taken Unknown] lorazepam [Ativan] 1 mg PO BID PRN #20 tab 09/24/20 [Rx Last Taken Unknown] Allergy/AdvReac Type Severity Reaction Status Date / Time aspirin Allergy Shortness Verified 09/21/20 14:33 of breath ketorolac [From Toradol] Allergy Shortness Verified 09/21/20 14:33 of breath naproxen [From Naprosyn] Allergy Shortness Verified 09/21/20 14:33 of breath Family History Mother Heart disease Hypertension Diabetes Father Heart disease Surgical History H/O: hysterectomy History of cholecystectomy History of left heart catheterization (09/19/20) Social History household members: spouse Smoking Status: Former smoker alcohol intake: never substance use type: does not use ROS ROS ED Constitutional Constitutional ED: Denies chills or fever(s) Eyes Eyes: Denies change in vision ENT ENT ED: Denies sore throat Cardiovascular Cardiovascular: Reports chest pain Respiratory/Chest Respiratory/Chest: Reports dyspnea; Denies cough Gastrointestinal Gastrointestinal: Denies abdominal pain, diarrhea, nausea or vomiting Genitourinary Genitourinary ED: Denies dysuria Musculoskeletal Musculoskeletal: Denies back pain Integumentary Denies rash Neurologic Neurologic: Denies headache(s) or weakness Psychiatric Psychiatric: Reports anxiety; Denies depression Endocrine Endocrinology: Denies polydipsia or polyuria Allergic/Immunologic Allergic/Immunologic ED: Denies urticaria EXAM Physical Exam Const Vital Signs: 09/24/20 02:35 09/24/20 02:39 Temperature 97.6 F L Temperature Source Temporal Pulse Rate 96 Respiratory Rate 19 H Respiratory Effort Short of Breath Respiratory Depth Normal Respiratory Pattern Normal Blood Pressure 147/104 H Blood Pressure Mean 118 Pulse Ox 99 Oxygen Delivery Method Room Air Room Air Positive well nourished and well developed General Appearance ED: well developed HEENT Reports normocephalic and head/scalp atraumatic Eyes PERRL and EOMs intact bilaterally Neck supple Chest Wall inspection of chest normal and palpation of chest normal Resp normal respiratory effort and clear to auscultation bilaterally Cardio regular rate and regular rhythm GI normal to inspection, nondistended, normoactive bowel sounds Palpation: soft Extremity normal to inspection Neuro oriented x3 and no sensory deficits noted Sensorium / Orientation: alert Motor Exam: strength 5/5 throughout Psych Mood & Affect: anxious Skin no rashes or lesions noted MDM MDM MDM Narrative Medical decision making narrative: EKG, chest x-ray, labs were obtained. Patient is given 1 mg of p.o. Ativan. Lab Data Attestation: I reviewed the patient's lab results. Labs: Laboratory Results - last 24 hr 09/24/20 09/24/20 09/24/20 02:50 02:50 03:15 WBC 12.8 H RBC 4.12 L Hgb 13.3 Hct 39.7 MCV 96.4 MCH 32.3 H MCHC 33.5 RDW Std Deviation 44.4 H RDW Coeff of Tony 12.5 Plt Count 256 MPV 11.6 Immature Gran % (Auto) 0.500 Neut % (Auto) 55.8 Lymph % (Auto) 31.7 [place] % (Auto) 10.5 H Eos % (Auto) 1.0 Baso % (Auto) 0.5 Absolute Neuts (auto) 7.1 Absolute Lymphs (auto) 4.05 Nucleated RBC % 0 Differential Comment SCANNED Platelet Estimate ADEQUATE Plt Morphology Comment CLUMPED Sodium Cancelled 136 Potassium Cancelled 3.8 Chloride Cancelled 103 Carbon Dioxide Cancelled 27.0 Anion Gap Cancelled 6 BUN Cancelled 14 Creatinine Cancelled 0.72 Estim Creat Clear Calc Cancelled 83.62 Est GFR (MDRD) Af Amer Cancelled 108 Est GFR (MDRD) Non-Af Cancelled 89 BUN/Creatinine Ratio Cancelled 19.4 Glucose Cancelled 108 H Calcium Cancelled 8.8 Troponin I Cancelled < 0.015 Radiography Chest X-Ray - ED: 1 View, Read by ED Physician, Normal, Heart, Lungs and Mediastinum Diagnostic Testing: Radiology Impression Chest X-Ray 09/24/20 02:47 IMPRESSION: COPD. Lungs are clear. Electronically Signed: Isac Mohr DO at 3:14 EDT Tel , Service support , EKG Initial EKG: Attestation: I personally reviewed and interpreted this EKG as follows: Interpretation: Sinus Rhythm (Sinus at 91 with left bundle branch block. No acute ischemia.) Treatment and Re-Evaluation Comments:: On repeat evaluation patient is resting much more comfortably. Test results are discussed with her. She is relieved that her lab work is normal and her chest x-ray is clear. She has been having a hard time since her recent discharge and she will be given a prescription for Ativan at home. Discharge Plan Triage Chief Complaint: Shortness of Breath ED Provider: Marline Prabhakar Dx/Rx/DC Orders Clinical Impression: Anxiety Instructions: ED Anxiety Reaction Prescriptions: New lorazepam [Ativan] 1 mg tablet 1 mg PO BID PRN (Reason: anxiety) Qty: 20 RF: 0 No Action albuterol sulfate 90 mcg/actuation HFA aerosol inhaler 2 puff INHALATION Q4H PRN PRN (Reason: Cough) RF: 0 furosemide 40 mg Tablet 40 mg PO DAILY Qty: 30 RF: 0 carvedilol 12.5 mg Tablet 12.5 mg PO BID Qty: 60 RF: 2 aspirin 81 mg Tablet,Chewable 81 mg PO DAILY@0800 Qty: 30 RF: 11 lisinopril 5 mg Tablet 5 mg PO DAILY Qty: 30 RF: 1 Primary Care Provider: Care Physician,No Primary Referrals: Laureano Nguyen MD [STAFF PHYSICIAN] - As soon as possible Care Physician,No Primary [Primary Care Provider] - Disposition Disposition: Home, self care
[2020-09-24 03:00] LABS: Absolute Lymphocyte Count 4.05 X10^3/uL (0.83-4.51); Absolute Neutrophil Count 7.1 X10^3/uL (2.0-7.7); Basophil# 0.06 X10^3/uL; Basophil% 0.5 % (0-1); Eosinophil# 0.13 X10^3/uL; Hematocrit 39.7 % (37-47); Hemoglobin 13.3 g/dL (12.0-15.0); Lymphocyte # 4.05 X10^3/ul (0.83-4.51); Lymphocyte % 31.7 % (19-41); Mean Corp Hgb Conc 33.5 g/dL (32-36); Mean Corpuscular Hgb 32.3 pg (27.0-32.0); Mean Corpuscular Volume 96.4 fL (81-99); Mean Platelet Vol. 11.6 fl (6.2-12.0); Monocyte# 1.34 X10^3/uL; Monocyte% 10.5 % (0-10); NRBC Flagged by Analyzer 0 % (0-5); Neutrophil # 7.14 X10^3/uL (2.7-7.7); Neutrophil % 55.8 % (47-70); POSITIVE COUNT YES; POSITIVE MORPHOLOGY YES; Platelet Count 256 K/mm3 (150-450); RBC Distribution Width CV 12.5 % (11.6-14.6); RBC Distribution Width SD 44.4 fl (35.1-43.9); Red Blood Count 4.12 M/mm3 (4.2-5.4); White Blood Count 12.8 K/mm3 (4.4-11.0)
[2020-09-24 03:03] LABS: Differential Indicated SCAN CRITERIA MET
[2020-09-24] MEDS: LORazepam 1 MG Tablet PO (03:24)
[2020-09-24 03:25] LABS: Differential Comment SCANNED; Platelet Estimate ADEQUATE (ADEQ); Platelet Morphology CLUMPED
[2020-09-24 03:40] LABS: Anion Gap 6 (5-15); BUN 14 mg/dL (7-18); BUN/Creat Ratio 19.4 RATIO (10-20); Calcium,Total 8.8 mg/dL (8.5-10.1); Chloride 103 mmol/L (98-107); Creatinine, Serum 0.72 mg/dL (0.55-1.02); EST Glomerular Filtration Rate 89 mL/min (>60); Est Glom Filt Rate - Afr Amer 108 mL/min (>60); Estimated Creatinine Clearance 83.62 ml/min; Glucose 108 mg/dL (74-106); Potassium 3.8 mmol/L (3.5-5.1); Sodium Level 136 mmol/L (136-145)
[2020-09-24 04:06] VITALS: BP 107/70; PULSE 84; RESP 16; O2SAT 96
== END 2020-09-24 04:09 | disposition home or self-care (01) ==
PROVIDERS: Emergency Provider Emergency Medicine
DX: F41.9 Anxiety disorder, unspecified (principal); I11.0 Hypertensive heart disease with heart failure; I50.20 Unspecified systolic (congestive) heart failure; I44.7 Left bundle-branch block, unspecified; I25.2 Old myocardial infarction; E78.5 Hyperlipidemia, unspecified; J44.9 Chronic obstructive pulmonary disease, unspecified; E66.9 Obesity, unspecified; Z68.30 Body mass index [BMI] 30.0-30.9, adult; Z79.82 Long term (current) use of aspirin; Z79.899 Other long term (current) drug therapy; Z87.891 Personal history of nicotine dependence
CPT/HCPCS: 71045; 80048; 84484; 85025; 93005; 99285; A4216

== ENCOUNTER 2020-10-02 02:07 | Emergency (ER) | payer MEDICAID, SELFPAY ==
[2020-10-02 02:07] VITALS: BP 178/123
[2020-10-02 02:08] VITALS: PULSE 118; RESP 20; TEMP 36.9; O2SAT 99; BMI 28.0
--- NOTE | 2020-10-02 02:28 | RAD_ITS ---
EXAM: XR CHEST, 1 VIEW : 1965 CLINICAL INDICATION: chest pain TECHNIQUE: Frontal view of the chest. This report was created using [employer] report generation technology. COMPARISON: 5 from 2020 FINDINGS: LUNGS AND PLEURAL SPACES: There is blunting of the left costophrenic angle which pleural effusion or scar. There is calcified granuloma at the right lung base. No pneumothorax. HEART: Unremarkable. Cardiac silhouette not enlarged. MEDIASTINUM: Central airways and mediastinal contour are unremarkable. BONES/JOINTS: Unremarkable. SOFT TISSUES: Unremarkable. RAD/Chest 1 View (Portable) IMPRESSION: Minimal left basilar scar or effusion. There is no acute pulmonary abnormality. at 0250 Reported and signed by: Osmel Chinchilla MD Electronically Signed: Osmel Chinchilla MD at 2:48 EDT Tel , Service support ,
--- NOTE | 2020-10-02 02:28 | EKG12_ITS ---
Test Reason : CP Blood Pressure : / mmHG Vent. Rate : 103 BPM Atrial Rate : 103 BPM P-R Int : 158 ms QRS Dur : 144 ms QT Int : 402 ms P-R-T Axes : 079 092 -15 degrees QTc Int : 526 ms Sinus tachycardia Rightward axis Non-specific intra-ventricular conduction block T wave abnormality, consider inferior ischemia Abnormal ECG Confirmed by CARSON ELDER, TALI ([id number]), news videotape editor JOSE EDUARDO VIVAS ([id number]) on 10/04/2020 10:11:21 AM Referred By: BALWINDER Confirmed By:TALI BYRD MD
[2020-10-02] MEDS: Ondansetron 4 MG/2 ML Vial IV (02:33)
[2020-10-02 02:36] VITALS: O2SAT 2
--- NOTE | 2020-10-02 02:36 | ED.VIS.CHEST ---
HPI History of Present Illness Chief Complaint: Chest Pain Informant: patient Onset/Context/Timing Onset: Days (2) Activity at onset: gradual Timing: Waxes and wanes Quality: Positive for - (Squeezing) Location: Left Chest Worsened By: Nothing Relieved By: Nothing Associated Symptoms: Positive for Nausea, Dyspnea and Lightheadedness; Negative for Vomiting, Diaphoresis, Cough, Fever, Acid Reflux and Palpitations Narrative Narrative: Patient presents with chest pain that has been waxing and waning over the past 2 days. Patient describes her pain as a squeezing sensation. Patient states it is over the left chest. Patient states this is different than the pain she felt with her heart attack. Patient states this is also different from the pain she typically gets with her anxiety attacks. Patient states nothing makes it better or worse. Patient admits to some nausea but denies any vomiting. Patient admits to some shortness of breath. Patient also admits to some lightheadedness and dizziness. Patient denies any diaphoresis, cough, fever, or palpitations. Patient states she does have some pain under her left scapular area as well. Prior Similar Symptoms: No CVD Risk Factors: Positive for Hypertension and Family History 1' </=55; Negative for Diabetes, Hypercholesterolemia and Smoking PE Risk Factors: Positive for Cancer; Negative for Recent Travel/Surgery, Recent Immobilization, Prior DVT or PE and OCP + Smoking + >/=35 PFSH PFSH Medical History Acute respiratory failure with hypoxia and hypercapnia (09/15/20) Cervical cancer Constipation COPD (chronic obstructive pulmonary disease) COPD with asthma Essential (primary) hypertension HFrEF (heart failure with reduced ejection fraction) (09/15/20) History of cervical cancer History of non-ST elevation myocardial infarction (NSTEMI) (09/15/20) History of pancreatitis HLD (hyperlipidemia) Left bundle branch block (LBBB) Nicotine dependence Non-ischemic cardiomyopathy Obesity Home Medications albuterol sulfate 2 puff INHALATION Q4H PRN PRN 09/15/20 [History Last Taken Unknown] aspirin 81 mg PO DAILY@0800 #30 tab 09/19/20 [Rx Last Taken Unknown] carvedilol 12.5 mg PO BID #60 tab 09/19/20 [Rx Last Taken Unknown] furosemide 40 mg PO DAILY #30 tab 09/19/20 [Rx Last Taken Unknown] lisinopril 5 mg PO DAILY #30 tab 09/19/20 [Rx Last Taken Unknown] lorazepam [Ativan] 1 mg PO BID PRN #20 tab 09/24/20 [Rx Last Taken Unknown] Allergy/AdvReac Type Severity Reaction Status Date / Time aspirin Allergy Shortness Verified 10/02/20 02:12 of breath ketorolac [From Toradol] Allergy Shortness Verified 10/02/20 02:12 of breath naproxen [From Naprosyn] Allergy Shortness Verified 10/02/20 02:12 of breath Family History Mother Heart disease Hypertension Diabetes Father Heart disease Surgical History H/O: hysterectomy History of cholecystectomy History of left heart catheterization (09/19/20) Social History household members: spouse Smoking Status: Former smoker alcohol intake: never substance use type: does not use ROS ROS ED Constitutional Constitutional ED: Denies chills or fever(s) Eyes Eyes: Denies blurry vision or change in vision ENT ENT ED: Denies rhinorrhea or sore throat Cardiovascular Cardiovascular: Reports as per HPI and chest pain; Denies palpitations Respiratory/Chest Respiratory/Chest: Reports dyspnea; Denies cough Gastrointestinal Gastrointestinal: Reports nausea; Denies abdominal pain or vomiting Genitourinary Genitourinary ED: Denies dysuria or hematuria Musculoskeletal Musculoskeletal: Reports back pain and neck pain Integumentary Denies abscess or rash Neurologic Neurologic: Denies headache(s) or weakness Psychiatric Psychiatric: Reports anxiety Allergic/Immunologic Allergic/Immunologic ED: Denies mouth swelling or urticaria EXAM Physical Exam Const Vital Signs: 10/02/20 02:07 10/02/20 02:08 10/02/20 02:11 Temperature 98.5 F Temperature Source Oral Pulse Rate 118 H Respiratory Rate 20 H Respiratory Effort Normal Non-Labored Blood Pressure 178/123 H Blood Pressure Mean 141 Pulse Ox 99 Oxygen Delivery Method Room Air 10/02/20 02:36 10/02/20 02:46 Temperature Temperature Source Pulse Rate 85 Respiratory Rate Respiratory Effort Blood Pressure 136/97 H Blood Pressure Mean Pulse Ox 2 Oxygen Delivery Method Nasal Cannula Positive well nourished and well developed General Appearance ED: well developed HEENT normocephalic and atraumatic Eyes PERRL and EOMs intact bilaterally Neck supple and no JVD Resp normal respiratory effort and clear to auscultation bilaterally Effort and Inspection: Negative for respiratory distress Cardio regular rate, regular rhythm and no murmurs GI normal to inspection, nondistended, normoactive bowel sounds, soft to palpation, non-tender and non-distended Extremity normal to inspection General Extremety ED: Negative for edema or tenderness General Extremity: Negative for edema Neuro oriented x3, CN's II-XII intact bilaterally and no sensory deficits noted Sensorium / Orientation: awake and alert Motor Exam: strength 5/5 throughout Psych mental status grossly normal Heart Score History: Slightly/Non-Suspicious ECG: Nonspecific Repolarization Age: >45 - <65 years Risk Factors: 1 or 2 Risk Factors Troponin: </= Normal Limit Score: 3 MDM MDM MDM Narrative Medical decision making narrative: EKG showed sinus rhythm with a rate of 103. There is a left bundle branch block pattern. There are no acute ST or T wave changes. This was unchanged compared to previous EKG dated 09/24/2020. Portable 1 view chest x-ray was obtained. On my interpretation, lung ceballos are clear. There is normal cardiac silhouette. Bony thorax is normal. There is no acute process noted. Radiologist also interpreted the x-ray and agrees. CBC, basic metabolic profile, and troponin were obtained and were within normal limits. Patient has an allergy to aspirin so this was not given. Patient was given 1 sublingual nitroglycerin tablet. Patient feels better after this. Patient has a HEART score of 3. Patient was advised that this is low risk for acute cardiac event. Patient was instructed to follow-up with her primary care physician in 5 to 7 days. Patient understood and was agreeable with the plan. All questions were answered. Lab Data Attestation: I reviewed the patient's lab results. Labs: Laboratory Results - last 24 hr 10/02/20 10/02/20 02:10 02:10 WBC 8.6 RBC 4.12 L Hgb 13.4 Hct 40.2 MCV 97.6 MCH 32.5 H MCHC 33.3 RDW Std Deviation 44.4 H RDW Coeff of Tony 12.5 Plt Count 384 MPV 10.6 Immature Gran % (Auto) 0.200 Neut % (Auto) 46.8 L Lymph % (Auto) 41.3 H [place] % (Auto) 10.1 H Eos % (Auto) 0.9 Baso % (Auto) 0.7 Absolute Neuts (auto) 4.0 Absolute Lymphs (auto) 3.56 Nucleated RBC % 0 Sodium 139 Potassium 3.7 Chloride 106 Carbon Dioxide 28.0 Anion Gap 5 BUN 13 Creatinine 0.82 Estim Creat Clear Calc 79.12 Est GFR (MDRD) Af Amer 93 Est GFR (MDRD) Non-Af 77 BUN/Creatinine Ratio 15.9 Glucose 108 H Calcium 9.6 Troponin I < 0.015 Radiography Chest X-Ray - ED: 1 View, Read by ED Physician, Read by Radiologist and Normal Diagnostic Testing: Radiology Impression Chest X-Ray 10/02/20 02:28 IMPRESSION: Minimal left basilar scar or effusion. There is no acute pulmonary abnormality. at 0250 Reported and signed by: Osmel Chinchilla MD Electronically Signed: Osmel Chinchilla MD at 2:48 EDT Tel , Service support , EKG Initial EKG: Attestation: I personally reviewed and interpreted this EKG as follows: Interpretation: Sinus Tachycardia (103), LBBB and Non-Specific ST Changes Prior EKG tracings: available for review Prior: Unchanged (09/24/2020) Discharge Plan Triage Chief Complaint: Chest Pain ED Provider: Ancelmo Tracey Dx/Rx/DC Orders Clinical Impression: Chest pain of uncertain etiology Instructions: ED Chest Pain, Uncertain Cause Prescriptions: No Action albuterol sulfate 90 mcg/actuation HFA aerosol inhaler 2 puff INHALATION Q4H PRN PRN (Reason: Cough) RF: 0 furosemide 40 mg Tablet 40 mg PO DAILY Qty: 30 RF: 0 carvedilol 12.5 mg Tablet 12.5 mg PO BID Qty: 60 RF: 2 aspirin 81 mg Tablet,Chewable 81 mg PO DAILY@0800 Qty: 30 RF: 11 lisinopril 5 mg Tablet 5 mg PO DAILY Qty: 30 RF: 1 lorazepam [Ativan] 1 mg tablet 1 mg PO BID PRN (Reason: anxiety) Qty: 20 RF: 0 Primary Care Provider: Laureano Nguyen Referrals: Laureano Nguyen MD [Primary Care Provider] - 3-5 Days Disposition Disposition: Home, self care
[2020-10-02 02:38] LABS: Absolute Lymphocyte Count 3.56 X10^3/uL (0.83-4.51); Basophil# 0.06 X10^3/uL; Basophil% 0.7 % (0-1); Eosinophil# 0.08 X10^3/uL; Eosinophils% 0.9 % (0-5); Hematocrit 40.2 % (37-47); Hemoglobin 13.4 g/dL (12.0-15.0); Lymphocyte # 3.56 X10^3/ul (0.83-4.51); Lymphocyte % 41.3 % (19-41); Mean Corp Hgb Conc 33.3 g/dL (32-36); Mean Corpuscular Hgb 32.5 pg (27.0-32.0); Mean Corpuscular Volume 97.6 fL (81-99); Mean Platelet Vol. 10.6 fl (6.2-12.0); Monocyte# 0.87 X10^3/uL; Monocyte% 10.1 % (0-10); NRBC Flagged by Analyzer 0 % (0-5); Neutrophil # 4.03 X10^3/uL (2.7-7.7); Neutrophil % 46.8 % (47-70); Platelet Count 384 K/mm3 (150-450); RBC Distribution Width CV 12.5 % (11.6-14.6); RBC Distribution Width SD 44.4 fl (35.1-43.9); Red Blood Count 4.12 M/mm3 (4.2-5.4); White Blood Count 8.6 K/mm3 (4.4-11.0)
[2020-10-02 02:46] VITALS: BP 136/97; PULSE 85
[2020-10-02] MEDS: Nitroglycerin SL (ED/IMG/CATH) 0.4 MG TABLET SL (02:46)
[2020-10-02 02:50] LABS: Anion Gap 5 (5-15); BUN 13 mg/dL (7-18); BUN/Creat Ratio 15.9 RATIO (10-20); Calcium,Total 9.6 mg/dL (8.5-10.1); Chloride 106 mmol/L (98-107); Creatinine, Serum 0.82 mg/dL (0.55-1.02); EST Glomerular Filtration Rate 77 mL/min (>60); Est Glom Filt Rate - Afr Amer 93 mL/min (>60); Estimated Creatinine Clearance 79.12 ml/min; Glucose 108 mg/dL (74-106); Potassium 3.7 mmol/L (3.5-5.1); Sodium Level 139 mmol/L (136-145)
[2020-10-02 03:06] VITALS: BP 122/91; PULSE 82; RESP 15; O2SAT 92
== END 2020-10-02 03:09 | disposition home or self-care (01) ==
PROVIDERS: Emergency Provider Emergency Medicine; PCP Internal Medicine
DX: R07.9 Chest pain, unspecified (principal); I11.0 Hypertensive heart disease with heart failure; I50.22 Chronic systolic (congestive) heart failure; J44.9 Chronic obstructive pulmonary disease, unspecified; E66.9 Obesity, unspecified; Z79.82 Long term (current) use of aspirin; Z85.41 Personal history of malignant neoplasm of cervix uteri; Z87.19 Personal history of other diseases of the digestive system; Z87.891 Personal history of nicotine dependence
CPT/HCPCS: 71045; 80048; 84484; 85025; 93005; 96374; 99285; A4216; J2405

== ENCOUNTER → 2020-10-04 | Outpatient (CLI) | payer MEDICAID, SELFPAY ==
[2020-10-04 14:37] VITALS: BMI 27.6
[2020-10-04 17:02] LABS: Amphetamine Urine VISTA NEGATIVE (<1000 ng/mL); Barbiturate Urine VISTA NEGATIVE (< 200 ng/mL); Benzodiazepine Urine VISTA NEGATIVE (< 200 ng/mL); Cocaine Urine VISTA NEGATIVE (< 300 ng/mL); Ecstacy Urine VISTA NEGATIVE (< 500 ng/mL); Methadone Urine VISTA NEGATIVE (< 300 ng/mL); PCP Urine VISTA NEGATIVE (< 25 ng/mL); THC Urine VISTA POSITIVE (< 50 ng/mL); Vista UDS pH Range 5
== END | disposition home or self-care (01) ==
LOC: LABSPEC 15:07
PROVIDERS: PCP Internal Medicine; Referring Provider Nurse Practitioner Family; Visit Provider Nurse Practitioner Family
DX: F41.9 Anxiety disorder, unspecified (principal); F32.9 Major depressive disorder, single episode, unspecified
CPT/HCPCS: 80307

== ENCOUNTER 2020-10-18 08:22 | Outpatient (RCR) | payer MEDICAID, SELFPAY ==
[2020-10-07 11:39] VITALS: BMI 26.9
--- NOTE | 2020-10-18 09:05 | BH.SGPN.GN ---
Behaviors/Verbalizations/Mental Status: [] Eye contact is good. Motor activity is appropriate. Appearance is disheveled. Speech is Appropriate. Mood is anxious. Affect is congruent. Thoughts are linear and logical. No evidence of psychosis. Reviewed daily check in sheet and no reports of suicidal ideations or intent. Client Response/Progress/Benefit: [] Pt spoke when prompted. Attentive. Shared that today is her first day in IOP. States I've put myself on the back-burner for too long. Reports that she often cares about, worries, and stresses over other which eventually led to a hear attack. Her human insights lead ads marketing reports that she needs to find out how to manage her anxiety, panic, and stress or she will continue to have cardiac issues. Group provided feedback and advice for her first day in IOP. Benefited from group support and empathy. No progress noted as this was pt's first day in IOP. Will continue in IOP to stabilize mood, increase healthy coping, and improve functioning. Narrative Note: []
--- NOTE | 2020-10-18 09:48 | BH.MDN_ITS ---
Multi-Disciplinary Note - Note 30-min Individual Time Started:: 08:10 Date: 10/18/20 Purpose of session/treatment goals addressed:: The purpose of this session was to complete the CSSR, as well as gather information on client's current stressors, symptoms, and treatment goals. Another goal was to build rapport and introduce client to therapeutic environment. Eye Contact:: Good - tearful throughout discussion on current stressors Motor Activity:: Appropriate Appearance:: Casual Speech:: Appropriate Mood:: Anxious, Depressed Affect:: Congruent Thoughts:: Linear, Logical, No evidence of hallucinations/delusions noted Staff Interventions:: Therapist used active listening and open-ended questions to explore client's current stressors, symptoms, history, and treatment goals. Worked with client to complete the CSSR screening and provide empathic responses as client discussed past trauma and mental health hx. Therapist used strengths perspective to build rapport and help client identify personal resilience factors. Therapist provided psychoeducation on grief and caregiver fatigue. Client Response:: Client responded well to session, open to meeting with therapist. Client shared that her outpatient management professor, Dr. Neil, referred client to [facility] program following a heat attack in August. Client reports she was referred due to increased difficulties in managing her current stressors and difficulties coping with several recent losses. Client shared that she has been struggling to manage her mental health symptoms over the past few years as she lost 2 of her children and her father in that time. Reports she has not really allowed for herself to grieve appropriately. Went on to describe coming back to [place] from [place] following her daughter?s suicide in 2019 and ended up staying to aid in caring for her ailing father at that time. Since her father?s , client has been living with her mother and as her mother?s health is now deteriorating as well. Reports significant anxiety regarding her mother?s health and the health of her daughter who has epilepsy and is living in [place]. Went on to discuss additional stressors impacting her mental health. Primary stressors include ongoing grief and working to gain custody of her grandchildren since her son?s last year. Reports she struggles with constant anxiety and ruminating thoughts about this. Additionally, discussed that she has not previously been in counseling to process her grief as she did not allow herself to feel her emotions out of fear it would become consuming. Expressed ?I?m afraid that once I start talking I?ll cry and then I won?t be able to stop. Receptive of discussion on impacts of grief on mental health and self-care, as well as provided psychoeducation on caregiver fatigue. Receptive to identifying treatment goals which included; improving self-care and healthy coping skills, allowing herself to process her grief and associated anger, as well as learn skills to more openly communicate with her family about her mental health. Client and therapist discussed grief counseling and how this could benefit client. Risks/Concerns:: Client denies any hx of or active suicidal ideations, plan, and intent as of 10/18/20. Reports no changes since intake paperwork. Denies hx of self-harming behaviors. Reports her family are her primary protective factors. Presents as low-risk per CSSR screening responses. Progress Toward Goals/Plan:: Client's first day of IOP tx. Currently endorses an anxious and depressed mood with ruminating thoughts, anxiety, grief, and crying spells. Client also reports anger and resentment associated with complex grief. Client shared her goals include reducing anxiety, improving use of healthy coping skills and self-care, as well as learning to more openly share about her mental health with supports. Will continue IOP tx to prevent decompensation, improve daily functioning, and reduce anxiety. Time Stopped:: 08:48
--- NOTE | 2020-10-18 09:48 | BH.MTP ---
Master Treatment Plan - Patient Information Program Physician:: Dr. Stephanie Seay
--- NOTE | 2020-10-18 09:48 | BH.PSA ---
Development & Family of Origin - Family History Family History: Family History (Last Reviewed 10/07/20 @ 12:[address] Alfonso Green MD) Mother Heart disease Hypertension Diabetes Father Heart disease Other Anxiety Asthma Suicide Assessment Treatment Plan Recommendations
--- NOTE | 2020-10-18 11:13 | BH.SGPN.GN ---
Behaviors/Verbalizations/Mental Status: []Client alert and oriented, casually dressed and groomed. Eye contact good. Motor activity appropriate. Speech within normal limits. Affect constricted, mood anxious. Thoughts linear, logical, no signs of hallucinations or delusions. Client Response/Progress/Benefit: []Client an active participant throughout AEB contributing to discussion and taking notes. Client participated in the group activity highlighting the various barriers to effectively utilizing supports and strategies the group used. Client participated in discussion of the four types of support (emotion, tangible, informational, and social/peer) and the group listed examples for all types. Client reports wanting to work on increasing emotional support as client feels this will help client cope with the loss of her son and stop feeling like ?I?m teetering on the edge.? Client plans to do this by continuing to come to IOP and exploring grief therapy. Client seemed to benefit from identifying the type of support client wants to improve. Will continue IOP tx to prevent decompensation, learn healthy coping skills, and gain healthy support. Narrative Note: []
--- NOTE | 2020-10-18 11:13 | BH.SGPN.GN ---
Behaviors/Verbalizations/Mental Status: [] Eye contact is fair to good. Motor activity is appropriate. Appearance is casual. Speech is Appropriate. Mood is anxious and depressed. Affect is congruent. Thoughts are linear and logical. No evidence of psychosis. Client Response/Progress/Benefit: []Pt was an active participant AEB attentiveness, and provided input during discussion, and participation in activity. Contributed to group discussion on benefits and examples of healthily social supports, identifying zoroastrianism as a personal support. Group noted benefits of strong social supports as: provides encouragement, hold us accountable, different perspective, and tangible resources. Client attentive throughout discussion on barriers to using support system. Identified a personal barrier to using her supports as not always communicating her emotions. Able to see the impact of support and its benefits during activity and challenges of accomplishing tasks w/o proper support. Benefited from awareness of barriers to support as well as importance of support in mental health wellness. Will continue IOP tx to promote healthy self-care, improve mood stability, and prevent decompensation. Narrative Note: []
--- NOTE | 2020-10-19 10:20 | BH.NA_ITS ---
Physical Data - Vital Signs Pulse Rate: 77 Blood Pressure: 129/92 - Height/Weight Height: 1.68 m Weight:: 72.575 kg - stated weight Weight in Pounds: 160.0 lbs Current Medication Compliance - Medication Compliance Do you take your medication as prescribed?: Yes Nutritional History - Appetite Nutritional Instructions:: If client shows signs of a swallowing problem, weight change of 10 pounds or more in the last month, or is on a diabetic diet, the physician will review and request a dietitian consult, as appropriate. All unintentional weight loss will be referred to the physician for decision on need for dietitian consult. Describe your appetite:: Good Additional nutritional information:: Client states she lost a few pounds while in the hospital in August 2020, and has made dietary changes to attempt to lose weight since. Client states she has lost about 20lbs in the last month. Functional Assessment - Sleep Pattern Describe any problems with sleeping: Client states her sleep is very poor and has been for awhile. Client states she sleeps about 2-3 hours per night and wakes up frequently. - Activities Motor Activity:: Functional Sensory/Communication Assess - Communication Problems Do you have difficulty understanding what people are saying?: No What is your primary language?: Green[place] Medical Problems/History - Cardiac Conditions Cardiovascular: Congestive heart failure, Hypertension, Myocardial infarction, Hyperlipidemia Comments:: Client states she recently had a NSTEMI in August 2020 and was diagnosed with hyperlipidemia, heart failure and non-ischemic cardiomyopathy - Respiratory Conditions Respiratory: Other (See comments) Comments:: COPD - Neurological Conditions Neurological: Headaches - Cancer History Type of Cancer:: Cervical - Pain Assessment Do you have acute or chronic pain?: No - Family History Family History: Family History (Last Reviewed 10/07/20 @ 12:[address] Alfonso Green MD) Mother Heart disease Hypertension Diabetes Father Heart disease Other Anxiety Asthma - Additional History Additional comments:: pancreatitis Surgical History - Surgical History Have you had any surgeries? If so, list type and date:: Yes - hysterectomy in 2000, cholecystectomy, heart cath Substance Abuse - Substance Abuse Please describe substance abuse in the last 30 days:: Client denies alcohol use. Client states she was a long time smoker but quit in August 2020 after her heart attack, but admits over the last few days after running out of her Ativan prescription she has smoked 1-3 cigarettes a day to help with my anxiety. Client states she has a past use of marijuana but has not used in many years. Client states she drinks 2 cups of coffee in the morning but denies drinking in afternoon/evening. Mental Status Summary - Mental Status Significant Findings/Observations on Appearance and Mood:: Client is alert and oriented x 4. Client is casually groomed with good hygiene. Client is wearing a mask due to COVID19 pandemic. Client is cooperative with assessment. Client makes good eye contact. Client's voice has normal rate and volume. Client has appropriate affect and makes logical associations. Client denies delusions/hallucinations. Client denies SI. Suicide Assessment - Suicidal Ideation Are you currently or have you been suicidal in the past?: No - denies SI Suicidal Intentional Rating Scale (SIRS): No suicidal thoughts (past or present), Suicidal thoughts (past) Physician Notification: If Active suicidal thoughts/Will not contract for safety is checked, contact physician and document in the Physician Notification section below. Assault History/Potential Past Psychiatric History - Treatment Hx Past Psychiatric Medications:: Recently started on Lexapro and states this is the first medication she has been on for depression. Client has been on Ativan in the past when her father and son within a few days of each other. Describe (age, circumstance, etc) any past hospitalizations: None Current providers for mental health treatment (counselor, psychiatrist, home health care case manager, etc.): None Fall Risk Assessment - Age Age: Less than 60 - Mental Status Mental Status: Willing & able to ask for assistance when needed - Physical Status Physical Status: No problems - Impairments Impairments: None - Elimination Elimination: Continent AND independent - Gait or Balance Gait or Balance: Walks independently - Hx of Falls History of falls in the past 6 months: No known history - Medications/Substances Psychotropics:: Antidepressants Others:: Antihypertensives, Diuretics Medications/substances used within the past 24 hours or ordered to administer: 3 or more of the medications/substances listed above - Total Score Total Points:: 2 RN Summary of Impressions - Impressions Recommendations: Include psychiatric and medical issues, treatment planning recommendations, and discharge planning needs. Impressions: Psychiatric Issues: 1. Major depressive disorder, recurrent, moderate. 2. Generalized anxiety disorder. 3. Panic disorder - Level of Care How do the client's current symptoms and functional deficits support need for this level of care?: Client was referred to [facility] program by PCP for increased anxiety. Client states she was hospitalized in August 2020 for a heart attack and found out she has cardiac disease. Client states she had been taking Ativan for anxiety, but states she ran out of her once a day prescription a few days ago and feels like it has been the only thing to help with her anxiety symptoms. Client states she has been on Lexapro for about 2 weeks and acknowledges it has not had max benefit yet. Client states stressors include the past suicide of her daughter, the of her father and overdose of her son within a few days of each other, and her mother's declining health. Client endorses isolation, decreased motivation, crying spells and anhedonia. Client denies SI. Client talks at length about being happy to be getting custody of her son's two children in November of this year, but states she wants to feel better mentally before the kids come to live with her. IOP will promote gains and prevent further decompensation while providing social support and skills gianni lozano
--- NOTE | 2020-10-19 11:16 | BH.SGPN.GN ---
Behaviors/Verbalizations/Mental Status: []Client alert and oriented, casually dressed and groomed. Eye contact good. Motor activity appropriate. Speech within normal limits. Affect congruent, mood anxious. Thoughts linear, logical, no signs of hallucinations or delusions. Client Response/Progress/Benefit: []Client was an active participant in group discussion and providing good insight to peers. Reviewed safety behaviors she engages in that reinforce anxiety. Attentive during psychoeducation on mindfulness coping skills and their impact on mental health wellness. The group worked together to brainstorm anxiety reduction strategies. Client shared she is willing to practice the following coping skills for anxiety: breathing techniques, hug from , and looking at family pictures. Client seemed to benefit from increased repertoire of anxiety reduction skills. Client will continue IOP tx to increase healthy coping skills, challenge distorted thoughts and prevent decompensation.
[2020-10-19 11:19] VITALS: BP 129/92; PULSE 77
--- NOTE | 2020-10-19 13:00 | PCM.BH.PSYEV ---
Psychiatric Evaluation Initial Evaluation Initial Evaluation: History of Present Illness: [] The patient is a 55-year-old female with a history of anxiety and depression who was referred to the [facility] behavioral health IOP program after being admitted to the hospital for cardiac issues in August 2020. The patient was found to have cardiac illness but it was also felt that her symptoms were made worse by severe anxiety. Patient currently lives in a house with her mother, brother and and they all get along well. Current stressors include her daughter dying by suicide in June 2017. Her father in 2018 and her son and chygfsgi-ve-wqf by a fentanyl overdose a month later. In addition the patient took care of her grandchildren when she lived in [place] until 7 years ago when her apmklmxw-vw-ugr went for ice cream with the children and instead left for [place]. This rdotikmz-fv-hyy is and is now in retirement and the patient and her are getting full custody of her 2 grandchildren in November 2020. They are ages 10 and 8 now. The patient and has seen them once a week or so in the past 3 years but they have been in custody of the state since 2018 and have foster parents. Patient is also stressed by watching her 82-year-old mother have some decrease in memory and some decline in health. The patient currently is depressed and cries a lot. She has low motivation, is isolating herself, and feels guilty over her son's by overdose. She denies hopelessness and worthlessness. She is anhedonic and has lost 20 pounds since having her heart attack in August when she was in the hospital. Sleep is about 4 5 hours a night and it worsened since she has been off work. She stays in bed all day and watches TV and she does sleep sometimes while in bed. She has low energy level and decreased concentration. She denies suicidal ideation, thoughts of , plan for suicide, homicidal ideation, hallucinations, delusions or symptoms of wilfredo. She does worry always and she has constant fear that something bad will happen. She has panic attacks 3-4 times a week now. She denies history of self-harm, OCD, eating disorder, trauma or PTSD. Current Psychiatric Medications: [] Lexapro 10 mg p.o. daily (started on October 03, 2020); Ativan 1 mg p.o. as needed since 2018 and she takes this once a day. Past Psychiatric History: [] No psychiatric admissions. No psych providers currently. No suicide attempts ever. No counseling ever or IOP. Her first psych meds are as above. She does have melatonin at home but it does not help her sleep. She drinks 1 to 2 cups of coffee a day no other caffeine use. Substance Use History: [] She smoked for 30 years 1/2 to 1 pack/day but quit in August 2020. But she admits and in the last few days she has begun smoking 1 to 2 cigarettes a day. She used marijuana many years ago. No other drug use no rehab and no alcohol use. Allergies: [] Fiorinal, Toradol, naproxen Medications: [] Psych meds plus aspirin once a day, carvedilol twice daily, Lasix 40 mg daily, lisinopril, albuterol inhaler Past Medical History: [] Hypertension, COPD, asthma, decreased ejection fraction of her heart, history of [place] in August 2020, history of acute respiratory failure with hypoxia and hypercapnia in August 2020; history of pancreatitis, nonischemic cardiomyopathy, left heart catheterization September 19, 2020, history of cervical cancer, hysterectomy, cholecystectomy. Family Psychiatric History: [] Mother is 82 years old and lives with the patient and is declining. Father at age 81 of cardiac issues and dementia. Daughter was a meth addict and committed suicide by possible overdose in the past. Psych and substance history otherwise negative. Personal/Social History: [] Patient was born and raised in [place] and they moved a lot while growing up because her father was in the [place]. Her parents were and very loving. The patient is the youngest child has a brother 8 years older and a brother 4 years older than her and they are close. She denies any physical, verbal or sexual abuse ever. School was great for her and she graduated high school but did not attend college. 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 Her workplace close due to Covid. Her marriage is good overall and her is a 58 years old and works at a factory and they have been for 38 years. She got at age 17 and had 4 children, 2 of which are still living. She has a son and a daughter who are both in [place]. The grandkids she is going to get custody of in November are the grandkids from her son who by overdose. Legal History: [] None. No bobtail driver's license because she is afraid to drive all her life. Review of Systems: [] Chest and shoulder pain but otherwise negative except as noted in present illness. Vital Signs: [] Reviewed in nurses notes and stable. Mental Status Examination: [] Patient is a 55-year-old female who is seen wearing a mask due to the pandemic and is casually dressed and groomed with good hygiene. She has no psychomotor agitation or retardation. She is an alert and oriented x3 and has a normal gait. She is cooperative during the interview and has good eye contact. Speech is normal rate and rhythm and fluent with no pressure. Mood is depressed and anxious. Affect is constricted. Thought process is goal-directed and organized. Thought content: There is no evidence of suicidal ideation, of thoughts, plan for suicide, hallucinations, homicidal ideation, delusions, or symptoms of wilfredo. Reality testing is intact. Intelligence is average. Judgment is intact. Insight: Limited but some present. Impulsivity: Low to moderate. Diagnoses: [] 1. Major depressive disorder, recurrent, moderate 2. Generalized anxiety disorder 3. Panic disorder 4. Primary support and work issues Plan: [] The patient will start the IOP program at [facility] as the structure, support, education, group therapy will hopefully prevent worsening of the patient's symptoms which might require hospitalization. She felt safe during the interview and if it anytime she does not feel safe she will let us know or go to the emergency room. The risks, options, possible complications and side effects of medications were discussed with the patient and she understands and accepts these. She would like to wait to increase the Lexapro so I will see her in 2 weeks and I may increase the Lexapro at that time because she will have been on it for about 1 month at that time. In addition she is prescribed trazodone 50 mg p.o. daily she can take 1-2 at bedtime as needed for sleep. She will continue to follow-up with outpatient providers. I will see the patient in 2 weeks in follow-up.
--- NOTE | 2020-10-19 13:12 | BH.DR.ITP ---
Initial Treatment Plan Patient Information Visit Information: ADMISSION DATE: EXPECTED LOS: 4-6 weeks Problems/Symptoms Problem #1:: Depression Symptom:: Sadness, anhedonia, low motivation, guilt, decreased concentration, low energy, biological disruption of sleep Problem #2:: Anxiety Symptom:: Worry, rumination, fear, panic attacks
--- NOTE | 2020-10-19 13:39 | BH.MTP_ITS ---
Master Treatment Plan - Patient Information Program Physician:: Dr. Seay Primary Therapist:: Maida Martini, [facility] - Psychiatric Diagnoses Psychiatric Diagnoses:: 1. Major depressive disorder, recurrent, moderate. 2. Generalized anxiety disorder. 3. Panic disorder Diagnosis Code(s):: F33.1 - Estimated LOS Estimated LOS (in weeks):: 6 Problem/Goal #1 - Problem/Goal #1 Stated Goal:: Client will reduce depressive symptoms, apathy, and anhedonia due to Major Depressive Disorder through Intensive Outpatient Program. Description of Barriers: Pt's distorted thoughts, isolation, grief over son's , limited social support, and anxious thoughts. - Objectives Objective #1 Stated Objective: Client will learn and utilize 2-3 healthy coping strategies to manage depressive symptoms. Interventions: Therapist will utilize CBT techniques to assist client with understanding the connection between thoughts, feelings and behaviors. Education will be provided on behavioral activation. Therapist will assist client in learning internal coping strategies to manage depressive symptoms, along with helping client identify triggers. Discharge Criteria: Client will have achieved this goal when can verbalize and practiced at least 2 healthy coping strategies that successfully manage depressive symptoms. Target Date: 11/29/20 Review Date: 11/15/20 Objective #2 Stated Objective: Pt will decrease depressive symptoms AEB pt?s score on the DSM 5 cross-cutting measure and improve pt?s daily functioning. Interventions: Through groups and individual therapy, pt will be provided with education on cognitive distortions, mistaken beliefs, and identifying and combating negative self-talk. Therapist will assist pt with getting back into the activities she once enjoyed as well as increasing healthy coping strategies. Discharge Criteria: Pt will have met this goal when pt?s score on the DSM 5 cross cutting measure for depression has been decreased and per pt?s report daily functioning has improved. Target Date: 11/29/20 Review Date: 11/15/20 Problem/Goal #2 - Problem/Goal #2 Stated Goal:: Client will reduce overall frequency, intensity, and duration of the anxiety so that daily functioning is not impaired. Description of Barriers: Pt's distorted thoughts, isolation, grief over son's , limited social support, and anxious thoughts. Functional Impact: Pt endorses depressed mood with uncontrollable crying, anhedonia, isolation, hopelessness, apathy, decreased motivation, decreased e nergy, and poor concentration. Pt reports daily anxiety with racing thoughts, uncontrollable worry, and restlessness. Pt's mental health symptoms impacting ability to complete ADLs, socially isolated, and not functioning at baseline. - Objectives Objective #1 Stated Objective: Client will learn and implement 2-3 calming skills to reduce overall anxiety and manage anxiety symptoms. Interventions: Therapist will teach client calming/relaxation skills and assign client homework which practices relaxation skills daily. Discharge Criteria: Client will have achieved this goal when can verbalize at least 2 calming skills and implement those skills.? Target Date: 11/29/20 Review Date: 11/15/20 Objective #2 Stated Objective: Pt will decrease anxious symptoms AEB pt?s score on the DSM 5 cross-cutting measure improve pt?s daily functioning. Interventions: Through groups and individual therapy, pt will be provided education about anxiety?s impact on body and common physiological reaction to anxiety. Therapist will teach pt appropriate breathing techniques and build healthy coping skills to manage daily anxieties. Discharge Criteria: Pt will have met this goal when pt?s score on the DSM 5 cross cutting measure for anxiety has been decreased and per pt?s report daily functioning has improved. Target Date: 11/29/20 Review Date: 11/15/20
--- NOTE | 2020-10-19 20:41 | BH.PSA ---
Source of Information - Presenting Problems/Circumstances Problems, Referral Source, Mental Status, Client: The patient is a 55-year-old female with a history of anxiety and depression who was referred to the [facility] behavioral health IOP program after being admitted to the hospital for cardiac issues in August 2020. The patient was found to have cardiac illness, but it was also felt that her symptoms were made worse by severe anxiety. Stressors include her daughter dying by suicide in June 2017. Her father in 2018 and her son by a fentanyl overdose a month later. Additional stressors are being in process of getting custody for 2 grandchildren and watching her mom?s health decline. Pt endorses depressed mood with low motivation, isolation, guilt, anhedonia, low energy, and decreased concentration. She has panic attacks 3-4 times a week. Past Psychiatric History - Treatment Hx Treatment History: No psychiatric admissions. No psych providers currently. No suicide attempts ever. No counseling ever or IOP. Development & Family of Origin - Childhood Significant Childhood Events: Patient was born and raised in [place] and they moved a lot while growing up because her father was in the [place]. Her parents were and very loving. - Family Who currently lives in your home?: Lives with and mother. Describe family composition:: Patient was born and raised in [place] and they moved a lot while growing up because her father was in the [place]. Her parents were and very loving. The patient is the youngest child has a brother 8 years older and a brother 4 years older than her and they are close. She denies any physical, verbal or sexual abuse ever. School was great for her and she graduated high school but did not attend college. Her marriage is good overall and her is a 58 years old and works at a factory and they have been for 38 years. She got at age 17 and had 4 children, 2 of which are still living. She has a son and a daughter who are both in [place]. The grandkids she is going to get custody of in November are the grandkids from her son who by overdose. - Family History Family History: Family History (Last Reviewed 11/09/20 @ 09:37 by Gemma Erickson) Mother Heart disease Hypertension Diabetes Father Heart disease Other Anxiety Asthma Family Hx of Psychiatric or AOD Problems: Daughter was a meth addict and committed suicide by possible overdose in the past. Pt's son was addict who by overdose. Ethnicity - Sexuality Sexual Orientation: Heterosexual Mental Status - Memory Recent Memory: Fair Remote Memory: Fair - Concentration Concentration: Poor - Eye Contact Eye Contact: Good - Speech Speech: Congruent - Thought Process Thought Process: Logical, Ruminations Insight: Fair Judgment: Fair Behavior: Anxious - Orientation Orientation: Time, Person, Place, Situation - Appearance Appearance: Appropriate - Mood Mood: Anxious, Dysphoric/tearful - Affect Affect: Alert, Appropriate/calm Suicide Assessment - Suicidal Ideation Have you ever felt like hurting yourself?: No Were you using ETOH/drugs at the time?: No Suicidal Intentional Rating Scale (SIRS): No suicidal thoughts (past or present) Physician Notification: If Active suicidal thoughts/Will not contract for safety is checked, contact physician and document in the Physician Notification section below. Violent Behavior/Abuse History - Homicidal Ideation Do you have any homicidal thoughts? If so, explain:: No Is there a known potential victim? If yes, who:: No - Abuse Have you ever been abused?: No - Life Events Are there any other significant life events?: Hardships - caring for her mom - Safety Do you ever feel threatened in your home? If yes, describe:: No Substance Use - Substance Substance Use Type: Marijuana - She used marijuana many years ago., Tobacco - She smoked for 30 years 1/2 to 1 pack/day but quit in August 2020. But she admits and in the last few days she has begun smoking 1 to 2 cigarettes a day. 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 Service - Service Have you ever been in the ?: No Legal History - Records Have you had any past legal charges?: No Do you have any current legal charges?: No Have you ever been incarcerated? If yes, describe:: No - Court Orders Have you had any past court orders for psychiatric treatment?: No Do you have a present court order for psychiatric treatment?: No Diagnoses - Diagnoses Diagnosis #1:: F33.1 Major depressive disorder, recurrent, moderate Diagnosis #2:: Generalized anxiety disorder Diagnosis #3:: Panic disorder Diagnosis #4:: Primary support and work issues Interpretive Summary - Interpretive Summary Interpretive Summary: The patient is a 55-year-old female with a history of anxiety and depression who was referred to the [facility] behavioral health IOP program after being admitted to the hospital for cardiac issues in August 2020. The patient was found to have cardiac illness but it was also felt that her symptoms were made worse by severe anxiety. Current stressors include her daughter dying by suicide in June 2017. Her father in 2018 and her son by a fentanyl overdose a month later. In addition the patient took care of her grandchildren when she lived in [place] until 7 years ago when her ibarfjdh-br-pjj went for ice cream with the children and instead left for [place]. This dkhqwvxi-hk-uay is and is now in custodial and the patient and her are getting full custody of her 2 grandchildren in November 2020. The patient and has seen them once a week or so in the past 3 years but they have been in custody of the state since 2018 and have foster parents. Patient is also stressed by watching her 82-year-old mother have some decrease in memory and some decline in health. The patient currently is depressed and cries a lot. She has low motivation, is isolating herself, and feels guilty over her son's by overdose. She denies hopelessness and worthlessness. She is anhedonic and has lost 20 pounds since having her heart attack in August when she was in the hospital. Sleep is about 4 5 hours a night and it worsened since she has been off work. She stays in bed all day and watches TV and she does sleep sometimes while in bed. She has low energy level and decreased concentration. She denies suicidal ideation, thoughts of , plan for suicide, homicidal ideation, hallucinations, delusions or symptoms of wilfredo. She does worry always and she has constant fear that something bad will happen. She has panic attacks 3-4 times a week now. She denies history of self-harm, OCD, eating disorder, trauma or PTSD. Treatment Plan Recommendations - Recommendations Guidelines: Special needs identified to be included in the development of an individualized treatment plan regarding past psychiatric history and treatment, developmental events, family relationships/events/culture, past and/or current educational, occupational, social, and residential experience, and legal status. Recommendations:: Recommend IOP level of care due to worsening depression, isolation and not functioning at home.
--- NOTE | 2020-10-26 09:01 | BH.SGPN.GN ---
Behaviors/Verbalizations/Mental Status: [] Client alert and oriented, casually dressed and groomed. Eye contact good. Motor activity appropriate. Speech within normal limits. Affect congruent, mood anxious and euthymic. Thoughts linear, logical, no signs of hallucinations or delusions. Reviewed client?s symptom tracker, reports no suicidal ideation, plan, or intent as of 10/26/20. Client Response/Progress/Benefit: [] Client responded well to session, attentive, provided supportive feedback and contributing to discussion. Client reports feeling happily apprehensive this morning. Noted this is due to progress in gaining custody of her grandchildren as well as being able to spend time with them over the weekend. Expressed apprehension regarding establishing and maintaining healthy boundaries with their mother. Client discuss the relationship is tense and there has been mistrust in the past but that she does not want to deny her grandchildren of a relationship with their mother. Discussed personal self-care she has been practicing to reduce overall stress levels. This included going for regular walks and reaching out to her supports. Appeared to benefit from connecting with peers and reflecting on wins. Client to continue IOP tx to improve mood stability, reinforce healthy boundary setting, and continue to promote healthy coping skills. Narrative Note: []
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
--- NOTE | 2020-10-26 14:19 | BH.MDN ---
Multi-Disciplinary Note - Note 30-min Individual Time Started:: 10:30 Date: 10/26/20 Purpose of session/treatment goals addressed:: Purpose of session was to address goal 1 from MTP. Eye Contact:: Good Motor Activity:: Appropriate Appearance:: Casual Speech:: Appropriate Mood:: Euthymic Affect:: Congruent Thoughts:: Linear, Logical, No evidence of hallucinations/delusions noted Staff Interventions:: Therapist used open ended questions to elicit pt's current symptoms and stressors. Therapist processed events that led up to two panic attacks in the last week. Therapist reviewed healthy coping skills that have been helpful to pt's improved mood. Therapist provided education on importance of self-care. Provided pt with information for grief counseling. Provided support by using active listening. Client Response:: Pt reported she has been doing much better compared to a couple weeks ago. Pt stated she has been able to get out of her bedroom, has gone to the store two times and is no longer crying every morning that she wakes up. Pt reported coming to IOP has helped increase her motivation and has been helpful to have accountability. Pt stated she has been experiencing more jacki with getting outside and tending to her [place]. Pt reported she's excited for this weekend because will have her grandkids until Saturday. 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 Pt stated December 05, 2020 is when she will get to keep her grandkids full-time. Pt expressed how helpful having her grandkids has been on her mental health. Pt reported had two panic attacks over the last week. Pt stated both panic attacks were triggered by feeling overwhelmed by a stressor in the moment. Pt reported she was able to manage the panic attack by using breathing tools. Pt stated her goal for the week is to continue to get out of her house several times. Risks/Concerns:: denies suicidal ideation, plan or intent. Progress Toward Goals/Plan:: Progress noted AEB pt reporting improved mood, decreased isolation, and decreased crying. Continues to struggle with daily grief. Pt to continue IOP to increase healthy coping, challenge negative thoughts and prevent decompensation. Time Stopped:: 11:05
== END 2020-10-26 23:59 ==
LOC: BHIOP 08:22
PROVIDERS: PCP Internal Medicine; Referring Provider Psychiatry & Neurology Psychiatry; Visit Provider Psychiatry & Neurology Psychiatry
DX: F33.1 Major depressive disorder, recurrent, moderate (principal); F41.1 Generalized anxiety disorder; F41.0 Panic disorder [episodic paroxysmal anxiety]; Z79.899 Other long term (current) drug therapy; Z87.891 Personal history of nicotine dependence; I10 Essential (primary) hypertension; J44.9 Chronic obstructive pulmonary disease, unspecified; I25.2 Old myocardial infarction
CPT/HCPCS: 90792; H2012; H2020; S9480; T1002; 90832

== ENCOUNTER 2020-10-27 08:28 | Outpatient (RCR) | payer MEDICAID, SELFPAY ==
[2020-10-07 11:39] VITALS: BMI 26.9
[2020-10-27 00:35] VITALS: BP 129/92; PULSE 77
--- NOTE | 2020-11-08 10:15 | BH.SGPN.GN ---
Behaviors/Verbalizations/Mental Status: []Client alert and oriented, casually dressed and groomed. Eye contact good. Motor activity appropriate. Speech within normal limits. Affect congruent, mood euthymic. Thoughts linear, logical, no signs of hallucinations or delusions. Client Response/Progress/Benefit: []Client passive participant AEB pt providing limited input during session AEB client contributing thoughts throughout discussion and completing worksheet. Connected with discussion on crisis and how coping with external crises by using unhealthy coping skills could result in a personal crisis. Group reflected on the importance of having awareness of personal warning signs in order to prevent reaching crisis point. Group identified potential warning signs for crisis and client completed the personal warning signs worksheet. Client completed worksheet in which she identified personal crisis warning signs, however elected to not share out with group. Client benefited by increasing awareness of what leads to crisis and personal warning signs. Pt will continue IOP to increase healthy coping, challenge negative thoughts and prevent decompensation. Narrative Note: []
--- NOTE | 2020-11-08 13:55 | BH.MDN_ITS ---
Multi-Disciplinary Note - Note 60-min Individual Time Started:: 11:00 Date: 11/08/20 Purpose of session/treatment goals addressed:: Purpose of session was to address goals 1 and 2 from MTP. Eye Contact:: Good Motor Activity:: Appropriate Appearance:: Casual Speech:: Appropriate Mood:: Anxious Affect:: Congruent Thoughts:: Linear, Logical, No evidence of hallucinations/delusions noted Staff Interventions:: CBT techniques, strengths perspective, taught coping skills Client Response:: Pt reported last week she couldn't attend IOP due to have heart issues and went to the hospital. Pt reported she is feeling frustrated with foster family of her grandchildren because found out they have different rules compared to foster parents biological children. Pt stated she has been able to manage her emotions about her frustrations by using positive self-talk and reminding herself soon her grandchildren will be living with her human factors advisor lead. Pt stated she can note progress with her motivation AEB getting more done around the house, decreased isolation, not staying in bed most the day, and ability to stay motivated even when the kids are with their foster family. Pt reported before when the kids would be gone she would just lay around but now is using opposite action to make herself be productive even when her grandkids are not around. Pt stated she did have a panic attack on Saturday because of her mom's health declining. Pt reported it is difficult to watch her mom struggle with memory. Recognizes this compounds the grief she already has over her son and daughter. Pt stated sleep continues to not be good. Pt reported she has been working on her goal of getting outside. Risks/Concerns:: denies suicidal/homicidal ideation, plan or intention. Progress Toward Goals/Plan:: Progress noted with pt reporting use of opposite action, positive self-talk, decrease isolation, and improved motivation. Pt continues to struggle with poor sleep quality and reports recent panic attack. Pt is to continue IOP to increase healthy coping, improve daily functioning and prevent decompensation. Time Stopped:: 12:00
--- NOTE | 2020-11-16 11:15 | BH.SGPN.GN ---
Behaviors/Verbalizations/Mental Status: [] Eye contact is good. Motor activity is appropriate. Appearance is casual. Speech is Appropriate. Mood is euthymic. Affect is full. Thoughts are linear and logical. No evidence of psychosis. Client Response/Progress/Benefit: [] Pt was an active participant in group discussion. Provided appropriate feedback and was attentive. Group processed the experiential activity and identified the skills that helped them succeed which included; working together, communication, persistence, trust, thoughtfulness, and being open to guidance. Able to relate how these skills are also important in a healthy relationships. Group processed skills which were unhelpful during activity which included; poor communication and rushed/impulsive decisions. Group identified the impact that unhealthy relationships can have on one's mental wellness which included; increased anxiety, increased depression, lower self-esteem, increased negative thoughts, poor self-care, physical health, indecisiveness, and confusion. Pt was able to identify one thing that she could do to improve her relationships which is be more patient. Benefited from group through insight on solis aspects of unhealthy vs healthy relationships as well as identifying what she could do to improve her current relationships. Will continue in IOP to increase healthy coping skills and improve functioning. Narrative Note: []
--- NOTE | 2020-11-16 12:41 | PCM.BH.PN_ITS ---
Progress Note Progress Note: History of Present Illness/Interim History: [] The patient is a 55-year-old female with a history of anxiety and depression who is seen in follow-up at the [facility] behavioral health IOP program. I last saw the patient 1 month ago. The patient has had somewhat inconsistent attendance at the IOP program and is averaging only once a week. She has had some difficulties with transportation and some health issues. The patient states that on October 30, 2020 she became dehydrated and did not feel well and spent 1 night overnight in the hospital. She recovered from this quickly. She is still having panic attacks once a day or so. She is looking forward to her grandchildren moving into her house in 2 days. She enjoys doing art work and other activities with them and feels this helps her mood. Her weight is stable now and she is no longer losing weight. Her sleep is still only about 4 or 5 hours a night and she does take occasional naps. She denies thoughts of , suicidal ideation, homicidal ideation, hallucinations, delusions or wilfredo. Current Psychiatric Medications: [] Lexapro 20 mg p.o. daily (increased 1 week ago by her outpatient provider); Ativan 1 mg p.o. as needed for panic attack (she takes this once a day or less but has run out of Ativan now and is very afraid that she may have a panic attack). Patient does not take trazodone for sleep as she does not like how it makes her feel. Mental Status Examination: [] The patient is a 55-year-old female who appears normal for stated age and is casually dressed and groomed with good hygiene. She has no psychomotor agitation or retardation. She is cooperative during the interview and has good eye contact. Speech is normal rate and rhythm and fluent with no pressure. Mood is anxious and depressed. Affect is constricted. Thought process is goal-directed and organized. Thought content: There is no evidence of suicidal ideation, passive thoughts of , hallucinations, delusions or homicidal ideation. Judgment is intact. Insight fair to good. Impulsivity: Low to moderate. Diagnoses: [] 1. Major depressive disorder, recurrent, moderate 2. Generalized anxiety disorder 3. panic disorder 4. Primary support and work issues Plan: [] The patient will continue the IOP program at [facility] as the structure, support, education, and group therapy will hopefully prevent worsening of the patient's symptoms. She felt safe during the interview and if it anytime she does not feel safe she will let us know or go to the emergency room. The risks, options, possible complications and side effects of the medications were again discussed with the patient and she understands and accepts these. No medication changes were made today as the patient was increased only 1 week ago to 20 mg of Lexapro. Patient was given a prescription for Ativan 1 mg p.o. as needed for panic attack, #10, 0 refills. The patient understands that I will not refill this but she will contact her current provider if and when she needs a refill. I will see the patient in 2 weeks to see how she is doing. She will continue to follow-up with her outpatient medical and psychiatric providers also.
--- NOTE | 2020-11-16 13:37 | BH.MTP_ITS ---
Treatment Plan Review Date of Admission:: 10/18/20 Date of Treatment Plan Review:: 11/16/20 Admitting Diagnoses:: 1. Major depressive disorder, recurrent, moderate F33.1. 2. Generalized anxiety disorder. 3. panic disorder Current Diagnoses:: 1. Major depressive disorder, recurrent, moderate F33.1. 2. Generalized anxiety disorder. 3. panic disorder Patient's Response to Treatment:: Pt's attendance have been inconsistent. Pt has had medical complications and transporting her grandchildren back and forth to [facility] that has impacted her attendance. Status of Current Problems and Symptoms: Problems ongoing. Overall symptom reduction of 17%. Pt's inconsistent attendance impacting treatment progress. Progress can be noted with pt's decreased isolation, improved motivation, and reporting increased happiness. Problem #1 Problem Name:: Depression Status of Goals:: Obj 1 - Partially met. Pt able to identify healthy coping skills like getting outside, self-care, and breathing. Pt struggles with consistent follow through of using skills. Obj 2 - Goal met. Per DSM 5 scores pt has a 50% reduction in depressive symptoms. Team Recommendations:: Team recommends pt continue current goals and objectives. Team recommends discussion with pt about improving consistent attendance. Problem #2 Problem Name:: Anxiety Status of Goals:: Obj 1 - partially met. Pt can identify calming skills to help manage anxiety like breathing and taking a walk, but struggles with consistent f ollow through. Obj 2 - not met. Per pt's DSM 5 scores pt has a 37.5% decrease in anxiety. Team Recommendations:: Team recommends pt continue current goals and objectives. Team recommends discussion with pt about improving consistent attendance.
--- NOTE | 2020-11-22 10:08 | BH.SGPN.GN ---
Behaviors/Verbalizations/Mental Status: []Client alert and oriented, casually dressed and groomed. Eye contact good. Motor activity appropriate. Speech within normal limits. Affect congruent, mood euthymic. Thoughts linear, logical, no signs of hallucinations or delusions. Client Response/Progress/Benefit: []Client responded well to session, attentive and contributing to discussion. Group discussed potential barriers to communication including: yelling, shutting down, passive-aggressive behaviors, and mind-reading. client shared she struggled with shutting down which made client?s feel ?lost.? Client shared her eventually encouraged her to get treatment which has also improved their relationship. Helped group identified positives of having effective communication skills. Attentive during psychoeducation on the four communication styles. Client reported she most often uses passive or aggressive communication styles with her family. Able to recognize negative outcomes of communication style. Seemed to benefit from increased awareness of the different communication styles and identify personal communication style. Client to continue in IOP tx to reinforce healthy coping skills and improve daily functioning. Narrative Note: []
--- NOTE | 2020-11-22 11:08 | BH.SGPN.GN ---
Behaviors/Verbalizations/Mental Status: []Client alert and oriented, casually dressed and appropriately groomed. Eye contact good. Motor activity appropriate. Speech WNL. Affect congruent, mood euthymic. Thoughts linear, logical, no signs of hallucinations or delusions. Client Response/Progress/Benefit: []Client responded well to session AEB client listening attentively to others and providing input during group discussion on the pay offs and costs of the different communication styles. Attentive during psychoeducation on interpersonal DBT skill NADINE and client selected a communication skill to practice. Client selected the skill of expressing her thoughts and feelings honestly. Client stated she also would like to work on asserting her needs. Client stated she can practice these skills first with her brother and eventually would like to use skills when communicating with her mother. Client seemed to benefit from increasing awareness of healthy strategies to improve communication. Will continue IOP tx to maintain gains, continue use of healthy coping and prevent decompensation.
--- NOTE | 2020-11-22 13:56 | BH.MDN ---
Multi-Disciplinary Note - Note 45-min Individual Time Started:: 09:05 Date: 11/22/20 Purpose of session/treatment goals addressed:: Purpose of session was to address goal 1 from MTP. Eye Contact:: Good Motor Activity:: Appropriate Appearance:: Casual Speech:: Appropriate Mood:: Euthymic Affect:: Full Thoughts:: Linear, Logical, No evidence of hallucinations/delusions noted Staff Interventions:: discharge planning, strengths perspective, other - reviewed treatment progress and healthy coping skills Client Response:: Pt reported she signed the custody papers yesterday for her grandchildren to stay with her night time nanny now. Pt stated she is feeling relieved and excited to have her grandkids home with her. Pt reported her mood has been positive, improved concentration, decreased isolation, and improved motivation. Pt stated she has been still engaging in self-care by having the kids help her with her garden so she can get outside and still do things she enjoys doing. Pt reported she is feeling relieved because she found out when her grandchildren's mother is released from [place] [facility] the mother only is allowed supervised visits. Pt stated her anxiety has decreased now that she knows grandchildren's mother can't take the kids away from her again. Pt agreed she will need to make sure she takes time for self-care, especially with having the kids living with her night time nanny. Pt stated once the kids start school she will make sure to take time for herself. Risks/Concerns:: denies SI/HI, plan or intention to date. Progress Toward Goals/Plan:: Progress noted with pt reporting improved mood, improved concentration, decreased isolation, able to get things done around the house and continuing to engage in self-care. Provided pt with phone number for grief counseling, encouraging pt to make appointment for aftercare. Discussed potentially discharge from IOP in two weeks. Pt to continue IOP to maintain gains, provide support with significant life change and prevent decompensation. Time Stopped:: 09:55
--- NOTE | 2020-11-23 09:00 | BH.SGPN.GN ---
Behaviors/Verbalizations/Mental Status: []Client alert and oriented, casually dressed and groomed. Eye contact good. Motor activity appropriate. Speech within normal limits. Affect congruent, mood euthymic. Thoughts linear, logical, no signs of hallucinations or delusions. Reviewed client?s symptom tracker, no risk for suicidal ideation, plan, or intent as of 11/23/20 Client Response/Progress/Benefit: []Client responded well to session, engaged and giving feedback. Client reports feeling happy this morning as client has received temporary custody of her grandchildren. Client thanked another group member for inspiring me to take these steps. Client stated her biggest stressor right now is worrying about what will happen when the children's mother gets out of [facility]. Client appeared to benefit from reflecting on the positives in her life and reminding herself of personal strengths. Progress noted in client's improved ability to manage stress and reduced isolation. Will continue IOP tx to promote gains and reinforce healthy coping skills. Narrative Note: []
--- NOTE | 2020-11-23 10:15 | BH.SGPN.GN ---
Behaviors/Verbalizations/Mental Status: [] Eye contact is good. Motor activity is appropriate. Appearance is casual. Speech is Appropriate. Mood is euthymic. Affect is full. Thoughts are linear and logical. No evidence of psychosis. Client Response/Progress/Benefit: [] Pt was an active participant in group activity and discussion. Attentive during psychoeducation on fixed mindset. Pt along with her peers provided insight on the aspects of a fixed mindset which included; being rigid, absolute thinking, why bother perspective, no confidence that one can succeed, and thoughts that one will never get better. Pt and peers were presented with a task which was meant to seem impossible. Pt identified common fixed mindset statements that she often uses which are I'm too old and I don't have the patience. Benefited from education on fixed mindset and how it impacts mental health. Will continue in IOP to prevent decompensation, stabilize mood, and increase healthy coping skills. Narrative Note: []
--- NOTE | 2020-11-23 11:15 | BH.SGPN.GN ---
Behaviors/Verbalizations/Mental Status: [] Client alert and oriented, casually dressed and groomed. Eye contact good. Motor activity appropriate. Speech within normal limits. Affect congruent. mood euthymic. Thoughts linear, logical, no signs of hallucinations or delusions. Client Response/Progress/Benefit: [] Client actively engaged during discussion AEB providing input and taking notes throughout. Client did well to remain attentive as group worked on identifying characteristics and benefits of adopting a growth mindset. Did well to work with fellow participants in reframing the example fixed thoughts into growth mindset thoughts. Client worked in small group to apply skills learned to reframe own personal fixed thoughts. Reframed thought of ?I don?t have the patience? with growth mindset thought of ?I can remember to breath and move forward with one this at a time?. Noted that this would aid in improving emotion regulation, reduce anxiety and improve hopefulness, as well as increase willingness to ask for help. Benefitted from discussing benefits of growth mindset and brainstorming strategies for prompting growth-mindset. Expressed plans to practice being more open to the possibility of success when tempted to tell herself things are going to fail as a strategy for further developing a growth mindset. Will continue IOP tx to continue to promote active thought challenging and skill application, as well as improve healthy coping repertoire. Narrative Note: []
== END 2020-11-26 23:59 ==
LOC: BHIOP 08:28
PROVIDERS: PCP Internal Medicine; Referring Provider Psychiatry & Neurology Psychiatry; Visit Provider Psychiatry & Neurology Psychiatry
DX: F33.1 Major depressive disorder, recurrent, moderate (principal); F41.1 Generalized anxiety disorder; F41.0 Panic disorder [episodic paroxysmal anxiety]; Z79.899 Other long term (current) drug therapy
CPT/HCPCS: 99213; H2012; H2020; S9480; 90834; 90837

== ENCOUNTER 2020-11-28 07:51 | Outpatient (RCR) | payer MEDICAID, SELFPAY ==
[2020-11-10 08:35] VITALS: BMI 28.5
[2020-11-27 00:34] VITALS: BP 129/92; PULSE 77
--- NOTE | 2020-11-30 09:02 | BH.SGPN.GN ---
Behaviors/Verbalizations/Mental Status: []Client alert and oriented, casually dressed and groomed. Eye contact good. Motor activity appropriate. Speech within normal limits. Affect congruent, mood euthymic. Thoughts linear, logical, no signs of hallucinations or delusions. Reviewed client?s symptom tracker, no risk for suicidal ideation, plan, or intent as of 11/30/20 Client Response/Progress/Benefit: []Client responded well to session, attentive and receptive to support from peers and nursing student. Client reports feeling happy and content this morning and expressed this is due to continuing to take steps in adjusting to having custody of her grandkids. Identified current mental health wins as getting her grandchildren enrolled in school, as well as doing well to set a boundary with their mother despite not wanting to have the conversation. Shared struggling at times to manage her emotions when communicating with the children?s mother but that reaching out to her supports and focusing on what aspects are in her control help in doing so. Identified this as on ongoing stressor and appeared to benefit from supportive feedback provided by group. Continues to report utilization of supports, deep breathing, and positive self-talk. 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 Narrative Note: []
--- NOTE | 2020-11-30 10:15 | BH.SGPN.GN ---
Behaviors/Verbalizations/Mental Status: [] Eye contact is good. Motor activity is appropriate. Appearance is casual. Speech is Appropriate. Mood is anxious. Affect is congruent. Thoughts are linear and logical. No evidence of psychosis. Client Response/Progress/Benefit: [] Pt was an active participant in group discussion and activity. Attentive during psychoeducation. Pt provided feedback and insight into reasons that people take action to improve mental wellness which included; benefits outweigh the risks, distress so long that one has to do something, hopeless and need options, and external motivations. Group members were able to identify what exactly taking action meant to them which included; starting and showing up to IOP and mental health treatment, taking medications, utilizing skills, and making an effort. Pt identified the obstacles that are holding her back from taking action which were guilt, impatience, and fear of the unknown. Benefited from increase awareness of the importance of taking action as well as obstacles that impact her from taking actions. Will continue in IOP to prevent decompensation, increase healthy coping, and improve functioning. Narrative Note: []
--- NOTE | 2020-11-30 11:15 | BH.SGPN.GN ---
Behaviors/Verbalizations/Mental Status: []Client alert and oriented, casually dressed and appropriately groomed. Eye contact good. Motor activity appropriate. Speech within normal limits. Affect constricted, mood anxious and depressed. Thoughts linear, logical, no signs of hallucinations or delusions. Client Response/Progress/Benefit: []Client responded well to session, taking notes and participating in worksheet discussion. Client set a goal to gain control over her self-doubt by reducing negative self-talk. Client wants to be able to work on this by using opposite action each day while caring for her grandchildren. Client stated to help accomplish this goal client will remind herself of the challenges she has overcome and practice her calming coping skills. Client stated she never thought she would be able to take care of her grandchildren, but she has proved to herself she can. Appeared to benefit from identifying a small goal to benefit mental health. Will continue IOP tx to improve daily functioning, combat distortions, and increase emotional regulation skills. Narrative Note: []
--- NOTE | 2020-12-06 11:05 | BH.SGPN.GN ---
Behaviors/Verbalizations/Mental Status: []Eye contact is good. Alert and oriented. Motor activity is appropriate. Appearance is casual. grooming is appropriate. Speech is Appropriate. Mood is euthymic. Affect is congruent. Thoughts are linear and logical. No evidence of psychosis or hallucinations. Client Response/Progress/Benefit: []Client was engaged during discussion, did well to complete activity and process with the group. Client was willing to complete the worksheet in which she was challenged to develop a personal SMART goal. Client chose the goal to take her new medication daily. Client stated this will benefit her by helping manage her anxiety. Client identified her barriers which included: forgetting and not wanting to take medications. Client receptive to identifying solutions for these barriers and willing to begin working on this goal. Benefited from this group by developing a short-term SMART goal related to mental health. Will continue IOP tx to maintain gains, continue to challenge negative thoughts and prevent decompensation. Narrative Note: []
--- NOTE | 2020-12-07 11:05 | BH.SGPN.GN ---
Behaviors/Verbalizations/Mental Status: []Eye contact is good. Alert and oriented. Motor activity is appropriate. Appearance is casual. grooming is appropriate. Speech is Appropriate. Mood is euthymic. Affect is congruent. Thoughts are linear and logical. No evidence of psychosis or hallucinations. Client Response/Progress/Benefit: []Client was engaged during discussion, did well to complete activity and process with the group. Client was willing to complete the worksheet in which was challenged to develop a personal SMART goal. Client was able to create a short term goal that was mental health focused. Client receptive to identifying solutions for these barriers and willing to begin working on this goal. Accepted feedback and support from others when identifying potential solutions to the barriers. Benefited from this group by developing a short-term SMART goal related to mental health. Will continue IOP tx to increase utilization of healthy coping skills, challenge negative thoughts and prevent decompensation.
--- NOTE | 2020-12-07 11:14 | PCM.BH.PN ---
Progress Note Progress Note: History of Present Illness/Interim History: [] Patient is a 55-year-old female with a history of anxiety and depression who is seen in follow-up at the [facility] behavioral health IOP program. I last saw the patient 3 weeks ago and at that time she had been on Lexapro 20 mg only for 1 week. I did give her 10 Ativan with no refills for breakthrough panic attacks until the Lexapro was on board longer. The patient states that she discontinued her Lexapro for 5 days ago as she did not think it helped. She has had more panic attacks lately and only has 1 Ativan tablet remaining. She feels that she has been stressed by getting her grandkids ready for school and getting them new doctors and new psych providers since they moved in with her full-time on November 19, 2020. Her and her got full custody of the grandchildren on November 19, 2020. She states that the children are doing well and overall she is doing well mood selby and feels she is managing the stress pretty well. Her grandkids are ages 9 and 10 and they have had a difficult childhood and she understands that it will be stressful to raise them. She denies thoughts of , suicidal ideation, homicidal ideation, hallucinations, delusions. Current Psychiatric Medications: [] Lexapro 20 mg p.o. daily (discontinued 5 days ago after only taking it for 2 to 3 weeks).; Ativan 1 mg p.o. as needed for panic attack (she took 9 tablets total in the past 3 weeks). Mental Status Examination: [] The patient is a 55-year-old female who is seen wearing a mask due to the pandemic and is casually dressed and groomed with good hygiene. She has no psychomotor agitation or retardation. Eye contact is good and speech is normal rate and rhythm and fluent with no pressure. Mood is mildly anxious and depressed. Affect is full and normal. Thought process is goal-directed and organized. Thought content: There is no evidence of suicidal ideation, passive thoughts of , hallucinations, delusions or homicidal ideation. Patient is stressed by getting her grandkids ready for school. Judgment is intact. Insight is fair. Impulsivity is low to moderate. Diagnoses: [] 1. Major depressive disorder, recurrent, moderate 2. Panic disorder 3. Generalized anxiety disorder 4. Primary support and work issues 5. Noncompliance with medication Plan: [] The patient will continue the IOP program at [facility] as the structure, support, education, and group therapy will hopefully prevent worsening of the patient's symptoms. She may discharge in a week or 2 if she continues to do well according to the patient. She felt safe during the interview and if it anytime she does not feel safe she will let us know or go to the emergency room. The risks, options, possible complications and side effects of medications were again discussed with the patient and she understands and accepts these. Long discussion was had about the necessity of taking an SSRI or SNRI in order to improve her anxiety and panic attacks so she does not require the Ativan. She understands Ativan is not something to be taken long-term and that I will no longer prescribe Ativan for her. Patient agrees to try Zoloft 25 mg p.o. daily. Prescription is given for this. The patient will continue to follow-up with her outpatient medical and psychiatric providers.
--- NOTE | 2020-12-13 14:35 | BH.MDN ---
Multi-Disciplinary Note - Note 30-min Individual Time Started:: 09:15 Date: 12/07/20 Purpose of session/treatment goals addressed:: Purpose of session was to address goal 1 from master treatment plan. Eye Contact:: Good Motor Activity:: Appropriate Appearance:: Disheveled, Casual Mood:: Euthymic Affect:: Full Thoughts:: Linear, Logical, No evidence of hallucinations/delusions noted Staff Interventions:: discharge planning, taught coping skills Client Response:: Pt reported having her grandkids everyday now has been overall going well. Pt stated there was an incident a few days ago in which her granddaughter had difficulty managing her emotions but pt recognizes this is going to happen given the trauma the two kids has witnessed. Pt stated she has noticed her anxiety has been worse in the past 10 days. Pt reported having panic attacks more frequently with no apparent trigger. Pt stated she stopped taking her medication about a week ago, but doesn't think that has anything to do with increased anxiety. Pt connected with therapist encouragement and reminder that pt needs to take care of herself, especially with added responsibilities of parenting her grandchildren. Pt able to review healthy skills and relaxation skills that have helped in the past like belly breathing, going to her garden, and getting out of the house. Pt stated a possible trigger to increased anxiety could be knowing the grandchildren's mother is getting released from [facility] the end of this month. Pt reported she knows the kids mother only is allowed supervised visits which makes pt feel more comfortable. Pt stated she knows she just needs to stick with her boundaries. Risks/Concerns:: denies suicidal ideation, plan or intention to date. Progress Toward Goals/Plan:: Progress noted with pt doing well with adjusting to her grandchildren living with her full-time. Pt reports recent increase in anxiety and panic attacks. Pt did stop her medication on her own volition. Plan is for pt to discharge from [facility] next week. Pt has been encouraged throughout the program to contact [facility] to establish with grief counseling. Pt agrees to do so this week. Time Stopped:: 09:50
--- NOTE | 2020-12-14 10:15 | BH.SGPN.GN ---
Behaviors/Verbalizations/Mental Status: []Eye contact is good. Motor activity is appropriate. Appearance is casual. Speech is Appropriate. Mood is euthymic. Affect is congruent. Thoughts are linear and logical. No evidence of psychosis. Client Response/Progress/Benefit: []Pt was an active participant in group discussion and activity. Attentive during psychoeducation on factors that build resiliency and providing insights throughout. Worked with peers to define resilience and shared ?Sometimes resilience involves being able to learn to compromise a bit? further explaining that compromise may aid in being able ?bounce back in storm?. Pt along with peers also identified what could impact personal resilience, which included: family, learned behaviors and learned coping skills, beliefs, habits, and past experiences. Pt reports support from her family and challenging negative thoughts has made pt more resilient. Pt benefited by increasing awareness on the role of resilience in mental health and factors that can help build resiliency. Will discharge from IOP on this date due to gains made and no longer meeting tx criteria, recommended continued outpatient tx. Narrative Note: []
--- NOTE | 2020-12-14 11:15 | BH.SGPN.GN ---
Behaviors/Verbalizations/Mental Status: []Client alert and oriented, casual dress, hygiene tended to. Eye contact good. Motor activity appropriate. Speech within normal limits. Affect congruent, mood euthymic. Thoughts linear, logical, no signs of hallucinations or delusions. Client Response/Progress/Benefit: []Client responded well to session AEB contributing to discussion. Client participated in the discussion of how each resiliency component can help increase personal resiliency. Client engaged in activity, working cooperatively with group. Client?s goal to increase resilience is to nurture a positive view of self. Client reported she recognizes the need to take credit for moving forward and making positive changes. Client stated her goal is to identify wins everyday with her grandchildren. Pt seemed to benefit from identifying goal to improve her personal resilience. Client has made significant progress and will discharge from [facility] today. Narrative Note: []
--- NOTE | 2020-12-14 16:57 | BH.DS_ITS ---
Discharge Summary - Demographics Date of Admission:: 10/18/20 Discharge Date: 12/14/20 Presenting Problems at Admission:: The patient is a 55-year-old female with a history of anxiety and depression who was referred to the [facility] behavioral health IOP program after being admitted to the hospital for cardiac issues in August 2020. The patient was found to have cardiac illness but it was also felt that her symptoms were made worse by severe anxiety. Stressors at admission included her daughter dying by suicide in June 2017. Her father in 2018 and her son by a fentanyl overdose a month later. Additional stressors were being in process of getting custody for 2 grandchildren and watching her mom?s health decline. At admission pt endorsed depressed mood with low motivation, isolation, guilt, anhedonia, low energy, and decreased concentration. She had panic attacks 3-4 times a week, Discharge Diagnoses:: 1. Major depressive disorder, recurrent, moderate. 2. Panic disorder. 3. Generalized anxiety disorder. 4. Primary support and work issues. 5. Noncompliance with medication Reason for Discharge:: Pt has reached maximum benefit from IOP and no longer me ets criteria for higher level of care. - Treatment Progress During Treatment & Response: Per pt's DSM 5 scores at discharge pt indicated a 100% reduction in depressive symptoms, a 42% reduction in anxiety and an overall 38% reduction in overall symptoms. Pt has struggled with attendance issues throughout her time in IOP which could have been barrier to further treatment progress. Pt also had stopped taking her meds on her own volition 3 weeks ago. When pt did attend sessions she often was attentive and provided input throughout. Issues Still to be Addressed:: Pt could benefit from grief counseling to help her process multiple losses in the last few years. Pt also could benefit from continued reinforcement of healthy coping, relaxation skills review, encouragement to engage in self-care, and support with getting custody of her two grandchildren. Discharge Recommendations/Instructions:: 1. [facility] grief counseling on 12/21/20 at 10am. Discharge Handout: Complete Discharge Handout with client on aftercare options and continuity of care.
== END 2020-12-14 13:45 | disposition home or self-care (01) ==
LOC: BHIOP 07:51
PROVIDERS: PCP Internal Medicine; Referring Provider Psychiatry & Neurology Psychiatry; Visit Provider Psychiatry & Neurology Psychiatry
DX: F33.1 Major depressive disorder, recurrent, moderate (principal); F41.0 Panic disorder [episodic paroxysmal anxiety]; F41.1 Generalized anxiety disorder
CPT/HCPCS: 99213; H2012; H2020; S9480; 90832

== ENCOUNTER 2021-01-12 22:49 | Emergency (ER) | payer MEDICAID, SELFPAY ==
[2021-01-12 22:53] VITALS: BP 127/94; PULSE 89; RESP 18; TEMP 36.7; O2SAT 95; BMI 29.9
--- NOTE | 2021-01-12 23:05 | EKG12_ITS ---
Test Reason : CP Blood Pressure : / mmHG Vent. Rate : 077 BPM Atrial Rate : 077 BPM P-R Int : 170 ms QRS Dur : 154 ms QT Int : 464 ms P-R-T Axes : 075 083 -72 degrees QTc Int : 525 ms Normal sinus rhythm Left bundle branch block Abnormal ECG Confirmed by CARSON ELDER, TALI ([id number]), news copy editor JOSE EDUARDO VIVAS ([id number]) on 01/13/2021 1:15:34 PM Referred By: PACO/DAVION/JOSIE Confirmed By:TALI BYRD MD
--- NOTE | 2021-01-12 23:14 | EDS_ITS ---
HPI History of Present Illness Chief Complaint: Chest Pain Narrative Narrative: Patient presenting with chest pain. She states that she coughed and then started to have this pain. She checked her blood pressure and it was 120/108 and she panicked. She states that she tried to calm herself down. This has been ongoing for the last couple of hours. She has not had fever, chills, cough. She states she has a history of CHF. She does not currently feel short of breath. [facility] Medical History Acute low back pain Acute respiratory failure with hypoxia and hypercapnia (09/15/20) Cervical cancer Colon cancer screening Constipation COPD (chronic obstructive pulmonary disease) COPD exacerbation COPD with asthma Depression Essential (primary) hypertension Generalized anxiety disorder HFrEF (heart failure with reduced ejection fraction) (09/15/20) History of cervical cancer History of non-ST elevation myocardial infarction (NSTEMI) (09/15/20) History of pancreatitis HLD (hyperlipidemia) Left bundle branch block (LBBB) Major depressive disorder, recurrent, moderate Muscle spasm Nicotine dependence Non-ischemic cardiomyopathy Obesity Panic disorder Preventative health care Tobacco abuse counseling Home Medications aspirin 81 mg PO DAILY@0800 #30 tab 09/19/20 [Rx Last Taken Unknown] albuterol sulfate 90 mcg/actuation aerosol inhaler 2 puff INHALATION Q4H PRN PRN #8.5 g 10/04/20 [Rx Last Taken Unknown] furosemide 40 mg tablet 40 mg PO DAILY #90 tab 10/17/20 [Rx Last Taken Unknown] lisinopril 2.5 mg tablet 2.5 mg PO DAILY #90 tab 10/17/20 [Rx Last Taken Unknown] carvedilol 12.5 mg tablet 12.5 mg PO BID #180 tab 12/19/20 [Rx Last Taken Unknown] kceicjpoeb-qdyhpimwsmxly-vqwtylfh 50 mg-300 mg-40 mg capsule 1 cap PO TID PRN #20 cap 01/06/21 [Rx Last Taken Unknown] Allergy/AdvReac Type Severity Reaction Status Date / Time aspirin [From Fiorinal] Allergy Mild hives, SOB Verified 12/09/20 10:28 ketorolac [From Toradol] Allergy Shortness Verified 12/09/20 10:28 of breath naproxen [From Naprosyn] Allergy Shortness Verified 12/09/20 10:28 of breath ubrogepant [From Ubrelvy] AdvReac Sick Verified 12/09/20 10:28 Feeling Family History Mother Heart disease Hypertension Diabetes Father Heart disease Other Anxiety Asthma Surgical History H/O: hysterectomy History of cholecystectomy History of left heart catheterization (09/19/20) Social History household members: spouse Smoking Status: Current every day smoker tobacco type: cigarettes alcohol intake: never substance use type: does not use what type of physical activity do you participate in: none ROS ROS ED Constitutional Constitutional ED: Denies chills, fever(s) or subjective Eyes Eyes: Denies none ENT ENT ED: Denies rhinorrhea or sore throat Cardiovascular Cardiovascular: Reports chest pain; Denies palpitations Respiratory/Chest Respiratory/Chest: Reports cough; Denies dyspnea or sputum Gastrointestinal Gastrointestinal: Denies abdominal pain or nausea Genitourinary Genitourinary ED: Denies dysuria or hematuria Musculoskeletal Musculoskeletal: Denies arthralgias or myalgias Neurologic Neurologic: Denies headache(s) or weakness Psychiatric Psychiatric: Reports anxiety; Denies depression EXAM Physical Exam Const Vital Signs: 01/12/21 22:53 Temperature 98.0 F Temperature Source Temporal Pulse Rate 89 Respiratory Rate 18 Blood Pressure 127/94 H Blood Pressure Mean 105 Pulse Ox 95 Oxygen Delivery Method Room Air Positive well nourished General Appearance ED: NAD HEENT Reports moist mucous membranes normocephalic and atraumatic Eyes PERRL and EOMs intact bilaterally Resp normal respiratory effort Effort and Inspection: respiratory distress Cardio regular rate and regular rhythm GI normal to inspection, nondistended, normoactive bowel sounds Extremity normal to inspection General Extremety ED: Negative for edema or tenderness General Extremity: Negative for edema Neuro oriented x3 Sensorium / Orientation: awake and alert Psych mental status grossly normal Skin no rashes or lesions noted Heart Score History: Slightly/Non-Suspicious ECG: Normal Age: >45 - <65 years Risk Factors: >/= 3 Risk Factors or History of CAD Troponin: </= Normal Limit Score: 3 MDM MDM MDM Narrative Medical decision making narrative: Patient presenting with chest pain. She states that she feels like she may have panic to come to the ER too early. She does not have shortness of breath, cough, fever, chills. Patient states that she currently feels improved. Patient EKG on my interpretation shows a sinus rhythm with a ventricular of 77 bpm with left bundle branch block. Chest x-ray my interpretation shows no acute cardiopulmonary process and the radiologist does agree. Patient's blood work currently is normal. Troponin is 10. Second troponin at 2-hour carter is not significantly changed. Patient currently feels well. I feel patient is stable to be discharged home. Impression: 1. Chest pain Lab Data Attestation: I reviewed the patient's lab results. Labs: Laboratory Results - last 24 hr 01/12/21 01/12/21 01/13/21 23:02 23:02 00:54 WBC 8.6 RBC 4.09 L Hgb 13.3 Hct 39.4 MCV 96.3 MCH 32.5 H MCHC 33.8 RDW Std Deviation 46.5 H RDW Coeff of Tony 13.1 Plt Count 281 MPV 10.4 Immature Gran % (Auto) 0.700 Neut % (Auto) 45.4 L Lymph % (Auto) 43.6 H Brooke % (Auto) 8.3 Eos % (Auto) 1.2 Baso % (Auto) 0.8 Absolute Neuts (auto) 3.9 Absolute Lymphs (auto) 3.74 Nucleated RBC % 0 Sodium 140 Potassium 4.2 Chloride 106 Carbon Dioxide 27.0 Anion Gap 7 BUN 16 Creatinine 0.84 Estim Creat Clear Calc 71.67 Est GFR (MDRD) Af Amer 90 Est GFR (MDRD) Non-Af 75 BUN/Creatinine Ratio 18.9 Glucose 114 H Calcium 9.0 Troponin I High Sens 10 17 Radiography Diagnostic Testing: Radiology Impression Chest X-Ray 01/12/21 23:18 IMPRESSION: No acute cardiopulmonary disease or interval change. Electronically Signed: Armando Morales DO at 23:50 EDT Tel [phone], Service support , Discharge Plan Triage Chief Complaint: Chest Pain ED Provider: Salomón Bautista Dx/Rx/DC Orders Instructions: ED Chest Pain, Uncertain Cause Prescriptions: No Action albuterol sulfate 90 mcg/actuation HFA aerosol inhaler 2 puff INHALATION Q4H PRN PRN (Reason: Cough) Qty: 8.5 RF: 1 aspirin 81 mg Tablet,Chewable 81 mg PO DAILY@0800 Qty: 30 RF: 11 lisinopril 2.5 mg tablet 2.5 mg PO DAILY Qty: 90 RF: 3 furosemide 40 mg tablet 40 mg PO DAILY Qty: 90 RF: 3 carvedilol 12.5 mg tablet 12.5 mg PO BID Qty: 180 RF: 3 ouxpvggwkt-ovpocqenoevnj-qxzu [Fioricet] 50-300-40 mg capsule 1 cap PO TID PRN (Reason: migraine headache) Qty: 20 RF: 0 Primary Care Provider: Laureano Nguyen Referrals: Laureano Nguyen MD [Primary Care Provider] - Disposition Disposition: Home, Self Care
--- NOTE | 2021-01-12 23:18 | RAD_ITS ---
STUDY: X-RAY CHEST REASON FOR EXAM: Female, 55 years old. Chest pain. TECHNIQUE: Single AP portable view of the chest. COMPARISON: 10/02/2020. FINDINGS: The lungs are well expanded. There is a small nodular density at the right lung base unchanged from prior study. There is no new infiltrate or mass. There is no demonstrated pleural abnormality. Normal size heart. Normal mediastinum and dinesh. Normal visualized pulmonary arteries. Normal visualized aortic arch and descending thoracic aorta. There are diffuse degenerative changes of the visualized thoracic spine. Normal visualized ribs, clavicles, and shoulders. There is no demonstrated abnormality of the visualized soft tissue structures of the upper abdomen. RAD/Chest 1 View (Portable) IMPRESSION: No acute cardiopulmonary disease or interval change. Electronically Signed: Armanod Morales DO at 23:50 EDT Tel [phone], Service support ,
[2021-01-12 23:28] LABS: Absolute Lymphocyte Count 3.74 X10^3/uL (0.83-4.51); Absolute Neutrophil Count 3.9 X10^3/uL (2.0-7.7); Basophil# 0.07 X10^3/uL; Basophil% 0.8 % (0-1); Eosinophils% 1.2 % (0-5); Hematocrit 39.4 % (37-47); Hemoglobin 13.3 g/dL (12.0-15.0); Lymphocyte # 3.74 X10^3/ul (0.83-4.51); Lymphocyte % 43.6 % (19-41); Mean Corp Hgb Conc 33.8 g/dL (32-36); Mean Corpuscular Hgb 32.5 pg (27.0-32.0); Mean Corpuscular Volume 96.3 fL (81-99); Mean Platelet Vol. 10.4 fl (6.2-12.0); Monocyte# 0.71 X10^3/uL; Monocyte% 8.3 % (0-10); NRBC Flagged by Analyzer 0 % (0-5); Neutrophil # 3.89 X10^3/uL (2.7-7.7); Neutrophil % 45.4 % (47-70); Platelet Count 281 K/mm3 (150-450); RBC Distribution Width CV 13.1 % (11.6-14.6); RBC Distribution Width SD 46.5 fl (35.1-43.9); Red Blood Count 4.09 M/mm3 (4.2-5.4); White Blood Count 8.6 K/mm3 (4.4-11.0)
[2021-01-12 23:35] LABS: Anion Gap 7 (5-15); BUN 16 mg/dL (7-18); BUN/Creat Ratio 18.9 RATIO (10-20); Chloride 106 mmol/L (98-107); Creatinine, Serum 0.84 mg/dL (0.55-1.02); EST Glomerular Filtration Rate 75 mL/min (>60); Est Glom Filt Rate - Afr Amer 90 mL/min (>60); Estimated Creatinine Clearance 71.67 ml/min; Glucose 114 mg/dL (74-106); Potassium 4.2 mmol/L (3.5-5.1); Sodium Level 140 mmol/L (136-145); Troponin-I HS 10 pg/mL (3.0-54.0)
[2021-01-13 01:28] LABS: Troponin-I HS 17 pg/mL (3.0-54.0)
[2021-01-13 02:05] VITALS: BP 108/87
[2021-01-13] MEDS: Acetaminophen 500 MG Tablet 1000 MG PO (02:05)
== END 2021-01-13 02:06 | disposition home or self-care (01) ==
PROVIDERS: Emergency Provider Student in an Organized Health Care Education/Training Program; PCP Internal Medicine
DX: R07.9 Chest pain, unspecified (principal); I44.7 Left bundle-branch block, unspecified; I25.10 Atherosclerotic heart disease of native coronary artery without angina pectoris; I11.0 Hypertensive heart disease with heart failure; I50.20 Unspecified systolic (congestive) heart failure; I25.2 Old myocardial infarction; J44.9 Chronic obstructive pulmonary disease, unspecified; F17.210 Nicotine dependence, cigarettes, uncomplicated; E66.9 Obesity, unspecified; Z68.29 Body mass index [BMI] 29.0-29.9, adult; Z79.82 Long term (current) use of aspirin; Z79.899 Other long term (current) drug therapy
CPT/HCPCS: 71045; 80048; 84484; 85025; 93005; 99285; A4216

== ENCOUNTER 2021-03-20 15:20 | Emergency (ER) | payer MEDICAID, SELFPAY ==
[2021-03-20 15:22] VITALS: BP 141/103; PULSE 90; RESP 19; TEMP 36.9; O2SAT 97; BMI 29.7
--- NOTE | 2021-03-20 16:11 | EKG12_ITS ---
Test Reason : CP Blood Pressure : / mmHG Vent. Rate : 090 BPM Atrial Rate : 090 BPM P-R Int : 176 ms QRS Dur : 148 ms QT Int : 400 ms P-R-T Axes : 088 085 -57 degrees QTc Int : 489 ms Normal sinus rhythm Left bundle branch block Abnormal ECG Confirmed by YENNY ELDER, BETTY ([id number]), state editor JOSE EDUARDO VIVAS ([id number]) on 03/24/2021 7:11:51 AM Referred By: SHIRA/MONICO Confirmed By:BETTY RAMON MD
--- NOTE | 2021-03-20 16:20 | RAD_ITS ---
STUDY: X-RAY CHEST REASON FOR EXAM: Female, 55 years old. Chest pain TECHNIQUE: Frontal view COMPARISON: None. FINDINGS: The lungs are expanded. Probable granuloma in the right lower lobe. Normal size heart. Normal mediastinum and dinesh. Normal visualized pulmonary arteries. Normal visualized aortic arch and descending thoracic aorta. Normal visualized thoracic spine. Normal visualized ribs, clavicles, and shoulders. There is no demonstrated abnormality of the visualized soft tissue structures of the upper abdomen. RAD/Chest 1 View (Portable) IMPRESSION: Probable right lower lobe granuloma. Electronically Signed: David Meyer DO at 16:44 EST Tel [phone], Service support ,
--- NOTE | 2021-03-20 16:21 | ED.VIS.CHEST ---
HPI History of Present Illness Chief Complaint: Chest Pain Informant: patient Onset/Context/Timing Onset: Yesterday Activity at onset: gradual Timing: Continuous and Intermittent Quality: Positive for Heaviness Location: Substernal Worsened By: Exertion Relieved By: Rest Associated Symptoms: Positive for Nausea, Diaphoresis, Dyspnea, Lightheadedness and Palpitations; Negative for Vomiting, Cough, Fever and Acid Reflux Narrative Narrative: Patient presents with chest pain that has been intermittent for the past few days. Patient states it has been constant today. Patient describes as a heaviness. Patient states it is over the substernal area. Patient states it is worse with any exertion. Patient states it is better with rest. Patient admits to some nausea but denies any vomiting. Patient admits to some shortness of breath and diaphoresis. Patient denies any cough or fever. Patient admits to some lightheadedness and palpitations at times. Patient states the pain radiates into her back between her shoulder blades. CVD Risk Factors: Positive for Smoking; Negative for Hypertension, Diabetes, Hypercholesterolemia and Family History 1' </=55 PE Risk Factors: Positive for Cancer; Negative for Recent Travel/Surgery, Recent Immobilization, Prior DVT or PE and OCP + Smoking + >/=35 PFSH PFSH Medical History Acute low back pain Acute respiratory failure with hypoxia and hypercapnia (09/15/20) Cervical cancer Colon cancer screening Constipation COPD (chronic obstructive pulmonary disease) COPD exacerbation COPD with asthma Depression Essential (primary) hypertension Generalized anxiety disorder HFrEF (heart failure with reduced ejection fraction) (09/15/20) History of cervical cancer History of non-ST elevation myocardial infarction (NSTEMI) (09/15/20) History of pancreatitis HLD (hyperlipidemia) Left bundle branch block (LBBB) Major depressive disorder, recurrent, moderate Muscle spasm Nicotine dependence Non-ischemic cardiomyopathy Obesity Panic disorder Preventative health care Tobacco abuse counseling Home Medications aspirin 81 mg PO DAILY@0800 #30 tab 09/19/20 [Rx Last Taken Unknown] albuterol sulfate 90 mcg/actuation aerosol inhaler 2 puff INHALATION Q4H PRN PRN #8.5 g 10/04/20 [Rx Last Taken Unknown] furosemide 40 mg tablet 40 mg PO DAILY #90 tab 10/17/20 [Rx Last Taken Unknown] lisinopril 2.5 mg tablet 2.5 mg PO DAILY #90 tab 10/17/20 [Rx Last Taken Unknown] carvedilol 12.5 mg tablet 12.5 mg PO BID #180 tab 12/19/20 [Rx Last Taken Unknown] nevbdllfjj-nxmpetlvhyrss-hefronvm 50 mg-300 mg-40 mg capsule 1 cap PO TID PRN #20 cap 01/06/21 [Rx Last Taken Unknown] Allergy/AdvReac Type Severity Reaction Status Date / Time aspirin [From Fiorinal] Allergy Mild hives, SOB Verified 03/20/21 15:21 ketorolac [From Toradol] Allergy Shortness Verified 03/20/21 15:21 of breath naproxen [From Naprosyn] Allergy Shortness Verified 03/20/21 15:21 of breath ubrogepant [From Ubrelvy] AdvReac Sick Verified 03/20/21 15:21 Feeling Family History Mother Heart disease Hypertension Diabetes Father Heart disease Other Anxiety Asthma Surgical History H/O: hysterectomy History of cholecystectomy History of left heart catheterization (09/19/20) Social History household members: spouse Smoking Status: Light Smoker (<10/day) alcohol intake: never substance use type: does not use what type of physical activity do you participate in: none ROS ROS ED Constitutional Constitutional ED: Denies chills or fever(s) Eyes Eyes: Denies blurry vision or change in vision ENT ENT ED: Denies rhinorrhea or sore throat Cardiovascular Cardiovascular: Reports chest pain and palpitations Respiratory/Chest Respiratory/Chest: Reports dyspnea; Denies cough Gastrointestinal Gastrointestinal: Reports nausea; Denies abdominal pain or vomiting Genitourinary Genitourinary ED: Denies dysuria or hematuria Musculoskeletal Musculoskeletal: Reports back pain and neck pain Integumentary Denies abscess or rash Neurologic Neurologic: Reports headache(s); Denies weakness Allergic/Immunologic Allergic/Immunologic ED: Denies mouth swelling or urticaria EXAM Physical Exam Const Vital Signs: 03/20/21 15:22 03/20/21 16:18 11/22/21 16:28 Temperature 98.5 F Temperature Source Oral Pulse Rate 90 81 Respiratory Rate 19 H Blood Pressure 141/103 H 118/85 H Blood Pressure Mean 115 Pulse Ox 97 Oxygen Delivery Method Room Air Room Air Oxygen Flow Rate (L/min) 03/20/21 16:30 03/20/21 18:23 Temperature Temperature Source Pulse Rate 84 71 Respiratory Rate 16 12 Blood Pressure 118/89 H 107/61 Blood Pressure Mean 98 76 Pulse Ox 96 96 Oxygen Delivery Method Nasal Cannula Room Air Oxygen Flow Rate (L/min) 2 Positive well nourished and well developed General Appearance ED: well developed HEENT normocephalic and atraumatic Eyes PERRL and EOMs intact bilaterally Neck supple and no JVD Chest Wall palpation of chest normal Resp normal respiratory effort and clear to auscultation bilaterally Effort and Inspection: Negative for respiratory distress Cardio regular rate, regular rhythm and no murmurs GI normal to inspection, nondistended, normoactive bowel sounds, soft to palpation, non-tender and non-distended Extremity normal to inspection General Extremety ED: Negative for edema or tenderness General Extremity: Negative for edema Neuro oriented x3, CN's II-XII intact bilaterally and no sensory deficits noted Sensorium / Orientation: awake and alert Motor Exam: strength 5/5 throughout Psych mental status grossly normal Heart Score History: Slightly/Non-Suspicious ECG: Nonspecific Repolarization Age: >45 - <65 years Risk Factors: 1 or 2 Risk Factors Troponin: </= Normal Limit Score: 3 MDM MDM MDM Narrative Medical decision making narrative: EKG was obtained. On my interpretation, there is normal sinus rhythm with a rate of 90. There is a left bundle branch block pattern noted. MI interval and QTc intervals were normal. [place] was normal. This was unchanged compared to previous EKG dated 01/12/2021. Portable chest x-ray was obtained. There is 1 view. On my interpretation, there is no acute process. There is probable right lower lobe granuloma. There is no infiltrate. There is no cardiomegaly. Bony thorax is normal. Radiologist also interpreted the x-ray and agrees. CBC was within normal limits. Basic metabolic profile was within normal limits. High-sensitivity troponin was 6. Repeat high-sensitivity troponin 2 hours later was 7. Patient was advised of her findings. Patient has a HEART score of 3. Patient was advised that this is low risk for acute cardiac event. Patient was instructed to follow-up with her primary care physician in 5 to 7 days. Patient understood and was agreeable with the plan. All questions were answered. Lab Data Attestation: I reviewed the patient's lab results. Labs: Laboratory Results - last 24 hr 03/20/21 03/20/21 03/20/21 15:27 15:27 17:45 WBC 7.0 RBC 4.18 L Hgb 13.4 Hct 39.9 MCV 95.5 MCH 32.1 H MCHC 33.6 RDW Std Deviation 45.4 H RDW Coeff of Tony 12.9 Plt Count 315 MPV 10.8 Immature Gran % (Auto) 0.100 Neut % (Auto) 46.6 L Lymph % (Auto) 44.1 H [place] % (Auto) 7.4 Eos % (Auto) 0.9 Baso % (Auto) 0.9 Absolute Neuts (auto) 3.3 Absolute Lymphs (auto) 3.08 Nucleated RBC % 0 Sodium 140 Potassium 3.8 Chloride 108 H Carbon Dioxide 28.0 Anion Gap 4 L BUN 14 Creatinine 0.88 Estim Creat Clear Calc 68.42 Est GFR (MDRD) Af Amer 86 Est GFR (MDRD) Non-Af 71 BUN/Creatinine Ratio 15.9 Glucose 123 H Calcium 9.1 Troponin I High Sens 6 7 Radiography Chest X-Ray - ED: 1 View, Read by ED Physician, Read by Radiologist and - (Right lower lobe granuloma) Diagnostic Testing: Clinical Impression(s) from Imaging Studies Chest X-Ray 03/20/21 16:20 IMPRESSION: Probable right lower lobe granuloma. Electronically Signed: David Meyer DO at 16:44 EST Tel [phone], Service support , EKG Initial EKG: Attestation: I personally reviewed and interpreted this EKG as follows: Interpretation: Sinus Rhythm (90) and LBBB Prior EKG tracings: available for review Prior: Unchanged (01/12/2021) Discharge Plan Triage Chief Complaint: Chest Pain ED Provider: Ancelmo Tracey Dx/Rx/DC Orders Clinical Impression: Chest pain Instructions: ED Chest Pain, Uncertain Cause Prescriptions: No Action albuterol sulfate 90 mcg/actuation HFA aerosol inhaler 2 puff INHALATION Q4H PRN PRN (Reason: Cough) Qty: 8.5 RF: 1 aspirin 81 mg Tablet,Chewable 81 mg PO DAILY@0800 Qty: 30 RF: 11 lisinopril 2.5 mg tablet 2.5 mg PO DAILY Qty: 90 RF: 3 furosemide 40 mg tablet 40 mg PO DAILY Qty: 90 RF: 3 carvedilol 12.5 mg tablet 12.5 mg PO BID Qty: 180 RF: 3 bmlafyxdex-acaimxbrtayla-fhla [Fioricet] 50-300-40 mg capsule 1 cap PO TID PRN (Reason: migraine headache) Qty: 20 RF: 0 Primary Care Provider: Laureano Nguyen Referrals: Laureano Nguyen MD [Primary Care Provider] - 3-5 Days Disposition Disposition: Home, Self Care Discharge Date/Time: 03/20/21 19:29
[2021-03-20] MEDS: Acetaminophen 500 MG Tablet 1000 MG PO (16:27)
[2021-03-20 16:28] VITALS: BP 118/85; PULSE 81
[2021-03-20] MEDS: Nitroglycerin SL (ED/IMG/CATH) 0.4 MG TABLET SL (16:28)
[2021-03-20 16:30] VITALS: BP 118/89; PULSE 84; RESP 16; O2SAT 96
[2021-03-20 16:40] LABS: Absolute Lymphocyte Count 3.08 X10^3/uL (0.83-4.51); Absolute Neutrophil Count 3.3 X10^3/uL (2.0-7.7); Basophil# 0.06 X10^3/uL; Basophil% 0.9 % (0-1); Eosinophil# 0.06 X10^3/uL; Eosinophils% 0.9 % (0-5); Hematocrit 39.9 % (37-47); Hemoglobin 13.4 g/dL (12.0-15.0); Lymphocyte # 3.08 X10^3/ul (0.83-4.51); Lymphocyte % 44.1 % (19-41); Mean Corp Hgb Conc 33.6 g/dL (32-36); Mean Corpuscular Hgb 32.1 pg (27.0-32.0); Mean Corpuscular Volume 95.5 fL (81-99); Mean Platelet Vol. 10.8 fl (6.2-12.0); Monocyte# 0.52 X10^3/uL; Monocyte% 7.4 % (0-10); NRBC Flagged by Analyzer 0 % (0-5); Neutrophil # 3.26 X10^3/uL (2.7-7.7); Neutrophil % 46.6 % (47-70); Platelet Count 315 K/mm3 (150-450); RBC Distribution Width CV 12.9 % (11.6-14.6); RBC Distribution Width SD 45.4 fl (35.1-43.9); Red Blood Count 4.18 M/mm3 (4.2-5.4)
[2021-03-20 16:53] LABS: Anion Gap 4 (5-15); BUN 14 mg/dL (7-18); BUN/Creat Ratio 15.9 RATIO (10-20); Calcium,Total 9.1 mg/dL (8.5-10.1); Chloride 108 mmol/L (98-107); Creatinine, Serum 0.88 mg/dL (0.55-1.02); EST Glomerular Filtration Rate 71 mL/min (>60); Est Glom Filt Rate - Afr Amer 86 mL/min (>60); Estimated Creatinine Clearance 68.42 ml/min; Glucose 123 mg/dL (74-106); Potassium 3.8 mmol/L (3.5-5.1); Sodium Level 140 mmol/L (136-145); Troponin-I HS 6 pg/mL (3.0-54.0)
[2021-03-20 18:17] LABS: Troponin-I HS 7 pg/mL (3.0-54.0)
[2021-03-20 18:23] VITALS: BP 107/61; PULSE 71; RESP 12; O2SAT 96
== END 2021-03-20 19:29 | disposition home or self-care (01) ==
PROVIDERS: Emergency Provider Emergency Medicine; PCP Internal Medicine
DX: R07.9 Chest pain, unspecified (principal); I44.7 Left bundle-branch block, unspecified; I11.0 Hypertensive heart disease with heart failure; I50.20 Unspecified systolic (congestive) heart failure; I25.2 Old myocardial infarction; J44.9 Chronic obstructive pulmonary disease, unspecified; E66.9 Obesity, unspecified; F17.200 Nicotine dependence, unspecified, uncomplicated; Z79.82 Long term (current) use of aspirin; Z79.899 Other long term (current) drug therapy
CPT/HCPCS: 36415; 71045; 80048; 84484; 85025; 93005; 99285; A4216

== ENCOUNTER 2021-08-20 20:14 | Emergency (ER) | payer MEDICAID, SELFPAY ==
[2021-08-20 20:14] VITALS: BP 154/105; PULSE 93; RESP 16; TEMP 36.6; O2SAT 97; BMI 27.4
--- NOTE | 2021-08-20 20:28 | EKG12_ITS ---
Test Reason : WEAKNESS Blood Pressure : / mmHG Vent. Rate : 077 BPM Atrial Rate : 077 BPM P-R Int : 170 ms QRS Dur : 166 ms QT Int : 446 ms P-R-T Axes : 081 091 -82 degrees QTc Int : 504 ms Sinus rhythm with Premature supraventricular complexes Left bundle branch block Abnormal ECG Confirmed by CARSON ELDER, TALI ([id number]), editorial specialist JOSE EDUARDO VIVAS ([id number]) on 08/22/2021 11:14:16 AM Referred By: Confirmed By:TALI BYRD MD
--- NOTE | 2021-08-20 20:30 | EDS_ITS ---
HPI History of Present Illness Chief Complaint: Weakness Informant: patient Onset/Context/Timing Onset: Hours (4-5) Context: Gradual Onset Timing: Continuous Quality: nausea, followed by dry heaving Current Severity: Moderate Maximum Severity: Moderate Worsened by: nothing Relieved by: nothing Associated Symptoms Associated Symptoms: lower left chest/LUQ pain Narrative Narrative: Patient states she is having severe nausea, last along with some dry heaves but nothing coming up, more gagging. She is having some discomfort in her left lower chest/left upper quadrant, but states that this is a chronic discomfort that is no worse today since this nausea and dry heaves started. She denies any discomfort going into her back. She denies shortness of breath, but she wants to make sure she does not have anything dangerous like a heart attack which she had 2 years ago. It was treated without a stent here after having a heart cath. She states she is also prone to anxiety/panic attacks and states that is a possibility here to although she had no obvious trigger. [facility] Medical History Acute low back pain Acute respiratory failure with hypoxia and hypercapnia (09/15/20) Cervical cancer Colon cancer screening Constipation COPD (chronic obstructive pulmonary disease) COPD exacerbation COPD with asthma Depression Essential (primary) hypertension Generalized anxiety disorder HFrEF (heart failure with reduced ejection fraction) (09/15/20) History of cervical cancer History of non-ST elevation myocardial infarction (NSTEMI) (09/15/20) History of pancreatitis HLD (hyperlipidemia) Left bundle branch block (LBBB) Major depressive disorder, recurrent, moderate Muscle spasm Nicotine dependence Non-ischemic cardiomyopathy Obesity Panic disorder Preventative health care Tobacco abuse counseling Home Medications aspirin 81 mg PO DAILY@0800 #30 tab 09/19/20 [Rx Last Taken Unknown] albuterol sulfate 90 mcg/actuation aerosol inhaler 2 puff INHALATION Q4H PRN PRN #8.5 g 10/04/20 [Rx Last Taken Unknown] oroshamsfu-kpbpdrddhkfnl-aphupami 50 mg-300 mg-40 mg capsule 1 cap PO TID PRN #20 cap 01/06/21 [Rx Last Taken Unknown] lisinopril 2.5 mg tablet 2.5 mg PO DAILY tab 07/07/21 [History Last Taken Unkn own] carvedilol 25 mg tablet 25 mg PO BID #180 tab 08/17/21 [Rx Last Taken Unknown] ondansetron 8 mg PO Q8H PRN PRN #16 tab 08/20/21 [Rx Last Taken Unknown] Allergy/AdvReac Type Severity Reaction Status Date / Time aspirin [From Fiorinal] Allergy Mild hives, SOB Verified 08/20/21 20:16 ketorolac [From Toradol] Allergy Shortness Verified 08/20/21 20:16 of breath naproxen [From Naprosyn] Allergy Shortness Verified 08/20/21 20:16 of breath ubrogepant [From Ubrelvy] AdvReac Sick Verified 08/20/21 20:16 Feeling Family History (Reviewed 07/07/21 @ 14:11 by Teetee Abbasi UNIFIED COMMUNICATIONS ENGINEER, UNIFIED COMMUNICATIONS ENGINEER-C) Mother Heart disease Hypertension Diabetes Father Heart disease Other Anxiety Asthma Surgical History H/O: hysterectomy History of cholecystectomy History of left heart catheterization (09/19/20) Social History household members: spouse Smoking Status: Light Smoker (<10/day) alcohol intake: never substance use type: does not use what type of physical activity do you participate in: none ROS ROS ED Constitutional Constitutional ED: Denies chills or fever(s) Eyes Eyes: Denies change in vision or diplopia ENT ENT ED: Denies rhinorrhea or sore throat Cardiovascular Cardiovascular: Reports as per HPI and chest pain; Denies palpitations Respiratory/Chest Respiratory/Chest: Reports cough, dyspnea on exertion and other Details: Chronic cough and dyspnea with exertion/COPD, unchanged compared with usual symptoms Gastrointestinal Gastrointestinal: Reports as per HPI and abdominal pain; Denies diarrhea, nausea or vomiting Genitourinary Genitourinary ED: Denies dysuria or hematuria Musculoskeletal Musculoskeletal: Denies back pain or neck pain Integumentary Denies abscess or rash Neurologic Neurologic: Denies headache(s), paresthesias or weakness Psychiatric Psychiatric: Reports anxiety; Denies suicidal thoughts EXAM Physical Exam Const Vital Signs: 08/20/21 20:14 08/20/21 20:37 Temperature 97.9 F Temperature Source Temporal Pulse Rate 93 79 Respiratory Rate 16 16 Blood Pressure 154/105 H 142/87 H Blood Pressure Mean 121 105 Pulse Ox 97 96 Oxygen Delivery Method Room Air Room Air Positive well nourished and well developed General Appearance ED: well developed and NAD HEENT Reports moist mucous membranes normocephalic and atraumatic Eyes PERRL and EOMs intact bilaterally Neck full ROM and supple Resp normal respiratory effort and clear to auscultation bilaterally Resp Narrative: Diminished throughout, symmetrically Effort and Inspection: prolonged expiratory phase Cardio regular rate, regular rhythm and no murmurs GI non-tender and non-distended Auscultation: normoactive bowel sounds Palpation: soft Back/Spine no CVA tenderness General Back: other FROM Extremity normal to inspection General Extremety ED: Negative for edema, pulses abnormal or tenderness General Extremity: Negative for edema or pulses abnormal Neuro oriented x3, CN's II-XII intact bilaterally and no sensory deficits noted Sensorium / Orientation: awake and alert Motor Exam: strength 5/5 throughout Psych mental status grossly normal, thought process normal, cooperative and speech normal Mood & Affect: anxious Skin no rashes or lesions noted and no wounds MDM MDM MDM Narrative Medical decision making narrative: Patient is a high-sensitivity troponin of 5, she has been having 4-5 hours of constant nausea/discomfort, and she feels completely better after Zofran with an EKG that shows a stable left bundle branch block. In my opinion, this is inconsistent with acute coronary syndrome. She feels like this might have been a panic attack. Regardless, I offered her some Mylanta to help settle her stomach she declines, and excepts a prescription for Zofran, we discussed reasons to return and follow-up. She is comfortable with that plan. I did discuss the nodule that the radiologist discussed in her right lung, and the possibility of it being enlarged compared with the last time, versus also possibly unchanged and she would need an outpatient CT at some point to determine. She understands and will discuss with her doctor as an outpatient. Lab Data Attestation: I reviewed the patient's lab results. Labs: Laboratory Results - last 24 hr 08/20/21 08/20/21 20:33 20:33 WBC 9.8 RBC 4.30 Hgb 13.8 Hct 40.8 MCV 94.9 MCH 32.1 H MCHC 33.8 RDW Std Deviation 44.1 H RDW Coeff of Tony 12.6 Plt Count 273 MPV 10.5 Immature Gran % (Auto) 0.200 Neut % (Auto) 54.4 Lymph % (Auto) 34.7 [place] % (Auto) 8.3 Eos % (Auto) 1.5 Baso % (Auto) 0.9 Absolute Neuts (auto) 5.3 Absolute Lymphs (auto) 3.39 Nucleated RBC % 0 Sodium 138 Potassium 3.6 Chloride 107 Carbon Dioxide 25.0 Anion Gap 6 BUN 24 H Creatinine 1.12 H Estim Creat Clear Calc 53.76 Est GFR (MDRD) Af Amer 65 Est GFR (MDRD) Non-Af 54 L BUN/Creatinine Ratio 21.4 H Glucose 126 H Calcium 9.2 Total Bilirubin 0.10 L AST 13 L ALT 16 Alkaline Phosphatase 91 Troponin I High Sens 5 Total Protein 7.6 Albumin 3.6 Globulin 4.0 Albumin/Globulin Ratio 0.9 Lipase 144 Radiography Chest X-Ray - ED: 1 View, Read by ED Physician and No Acute Disease Diagnostic Testing: Clinical Impression(s) from Imaging Studies Chest X-Ray 08/20/21 20:33 IMPRESSION: No acute findings. Right nodular opacity appears slightly larger but this may be due to difference in the positioning on these portable chest x-rays. This could be correlated with CT chest for follow-up as clinically indicated. Electronically Signed: Fiona Vázquez MD at 21:18 EDT , Discharge Plan Triage Chief Complaint: Weakness Other Complaint: Nausea/Vomiting ED Provider: Lawrence Beatty Dx/Rx/DC Orders Clinical Impression: Nausea, Atypical chest pain Instructions: Nausea Vomit Control Prescriptions: New ondansetron [ondansetron] 4 MG tablet 8 mg PO Q8H PRN PRN (Reason: Nausea) Qty: 16 RF: 0 No Action albuterol sulfate 90 mcg/actuation HFA aerosol inhaler 2 puff INHALATION Q4H PRN PRN (Reason: Cough) Qty: 8.5 RF: 1 lisinopril 2.5 mg tablet 2.5 mg PO DAILY RF: 0 aspirin 81 mg Tablet,Chewable 81 mg PO DAILY@0800 Qty: 30 RF: 11 fvksvhsyos-rxgnajsioifdv-akdk [Fioricet] 50-300-40 mg capsule 1 cap PO TID PRN (Reason: migraine headache) Qty: 20 RF: 0 carvedilol 25 mg tablet 25 mg PO BID Qty: 180 RF: 3 Primary Care Provider: Care Physician,No Primary Referrals: Laureano Nguyen MD [STAFF PHYSICIAN] - 3-5 Days if not improving Disposition Disposition: Home, Self Care
--- NOTE | 2021-08-20 20:33 | RAD_ITS ---
STUDY: X-RAY CHEST REASON FOR EXAM: Female, 55 years old. chest pain TECHNIQUE: AP portable. 8:39 PM. COMPARISON: 03/20/2021. FINDINGS: LUNGS: No consolidation. Nodular opacity right lung base appears slightly larger but this is likely due to the difference in the positioning, and is likely a granuloma given the density. No pneumothorax. MEDIASTINUM: Unremarkable. CARDIAC SILHOUETTE: Not enlarged. BONES AND SOFT TISSUES: No acute abnormalities. RAD/Chest 1 View (Portable) IMPRESSION: No acute findings. Right nodular opacity appears slightly larger but this may be due to difference in the positioning on these portable chest x-rays. This could be correlated with CT chest for follow-up as clinically indicated. Electronically Signed: Fiona Vázquez MD at 21:18 EDT ,
[2021-08-20] MEDS: Ondansetron 4 MG/2 ML Vial IV (20:34)
[2021-08-20 20:37] VITALS: BP 142/87; PULSE 79; RESP 16; O2SAT 96
[2021-08-20 20:39] LABS: Absolute Lymphocyte Count 3.39 X10^3/uL (0.83-4.51); Absolute Neutrophil Count 5.3 X10^3/uL (2.0-7.7); Basophil# 0.09 X10^3/uL; Basophil% 0.9 % (0-1); Eosinophil# 0.15 X10^3/uL; Eosinophils% 1.5 % (0-5); Hematocrit 40.8 % (37-47); Hemoglobin 13.8 g/dL (12.0-15.0); Lymphocyte # 3.39 X10^3/ul (0.83-4.51); Lymphocyte % 34.7 % (19-41); Mean Corp Hgb Conc 33.8 g/dL (32-36); Mean Corpuscular Hgb 32.1 pg (27.0-32.0); Mean Corpuscular Volume 94.9 fL (81-99); Mean Platelet Vol. 10.5 fl (6.2-12.0); Monocyte# 0.81 X10^3/uL; Monocyte% 8.3 % (0-10); NRBC Flagged by Analyzer 0 % (0-5); Neutrophil # 5.32 X10^3/uL (2.7-7.7); Neutrophil % 54.4 % (47-70); Platelet Count 273 K/mm3 (150-450); RBC Distribution Width CV 12.6 % (11.6-14.6); RBC Distribution Width SD 44.1 fl (35.1-43.9); White Blood Count 9.8 K/mm3 (4.4-11.0)
[2021-08-20 20:57] LABS: ALB/GLOB Ratio 0.9 RATIO (0.9-2.4); AST(SGOT) 13 U/L (15-37); Alanine Aminotransfer ALT/SGPT 16 U/L (13-56); Albumin, Serum 3.6 g/dL (3.2-5.0); Alkaline Phosphatase 91 U/L (45-117); Anion Gap 6 (5-15); BUN 24 mg/dL (7-18); BUN/Creat Ratio 21.4 RATIO (10-20); Calcium,Total 9.2 mg/dL (8.5-10.1); Chloride 107 mmol/L (98-107); Creatinine, Serum 1.12 mg/dL (0.55-1.02); EST Glomerular Filtration Rate 54 mL/min (>60); Est Glom Filt Rate - Afr Amer 65 mL/min (>60); Estimated Creatinine Clearance 53.76 ml/min; Glucose 126 mg/dL (74-106); Lipase 144 U/L (73-393); Potassium 3.6 mmol/L (3.5-5.1); Protein, Total 7.6 g/dL (6.4-8.2); Sodium Level 138 mmol/L (136-145); Troponin-I HS 5 pg/mL (3.0-54.0)
[2021-08-20 22:06] VITALS: BP 142/74; PULSE 75; RESP 18; O2SAT 98
== END 2021-08-20 22:10 | disposition home or self-care (01) ==
PROVIDERS: Emergency Provider Emergency Medicine; Visit Provider Emergency Medicine
DX: R07.89 Other chest pain (principal); J44.9 Chronic obstructive pulmonary disease, unspecified; I11.0 Hypertensive heart disease with heart failure; I50.22 Chronic systolic (congestive) heart failure; R11.0 Nausea; I25.2 Old myocardial infarction; E78.5 Hyperlipidemia, unspecified; E66.9 Obesity, unspecified; F17.200 Nicotine dependence, unspecified, uncomplicated; Z68.27 Body mass index [BMI] 27.0-27.9, adult; Z79.82 Long term (current) use of aspirin; Z79.899 Other long term (current) drug therapy
CPT/HCPCS: 71045; 80053; 83690; 84484; 85025; 93005; 99283; A4216; J2405

== ENCOUNTER → 2021-08-25 | Outpatient (CLI) | payer MEDICAID, SELFPAY ==
[2021-08-25 11:13] LABS: AST(SGOT) 14 U/L (15-37); Alanine Aminotransfer ALT/SGPT 17 U/L (13-56); Albumin, Serum 3.4 g/dL (3.2-5.0); Alkaline Phosphatase 89 U/L (45-117); Cholesterol 171 mg/dL (200); Globulin 3.5 g/dL (2.2-4.2); High Density Lipoprotein 35 mg/dL; Protein, Total 6.9 g/dL (6.4-8.2); Triglycerides 117 mg/dL; Very Low Density Lipoprotein 23 mg/dL (5-40)
== END | disposition home or self-care (01) ==
LOC: LAB 09:42
PROVIDERS: Referring Provider Nurse Practitioner Gerontology; Visit Provider Nurse Practitioner Gerontology
DX: E78.5 Hyperlipidemia, unspecified (principal)
CPT/HCPCS: 36415; 80061; 80076

== ENCOUNTER 2021-10-02 20:46 | Emergency (ER) | payer MEDICAID, SELFPAY ==
[2021-10-02 20:47] VITALS: BP 159/112; PULSE 87; RESP 16; TEMP 36.2; O2SAT 97; BMI 29.7
--- NOTE | 2021-10-02 20:58 | EKG12_ITS ---
Test Reason : ABD PAIN Blood Pressure : / mmHG Vent. Rate : 069 BPM Atrial Rate : 069 BPM P-R Int : 172 ms QRS Dur : 160 ms QT Int : 456 ms P-R-T Axes : 072 083 -82 degrees QTc Int : 488 ms Sinus rhythm with Premature supraventricular complexes Left bundle branch block Abnormal ECG Confirmed by CARSON ELDER, TALI ([id number]), restaurant expeditor JOSE EDUARDO VIVAS ([id number]) on 10/03/2021 1:37:18 PM Referred By: Confirmed By:TALI BYRD MD
--- NOTE | 2021-10-02 20:59 | EDS_ITS ---
HPI History of Present Illness Chief Complaint: Abd Pain Informant: patient Narrative Narrative: 56-year-old female presents to the emergency room with nausea. She states that since she had her heart attack last year this is the third episode that has happened to her like this. She states that she gets really cold on the inside that her stomach starts to hurt and she gets very nauseated. She wonders if she is having a panic attack. Patient last tried to eat about 3 hours ago but it did not taste good. She has not had vomiting no diarrhea. She follows locally with cardiology with Dr. Green. [facility] Medical History Acute low back pain Acute respiratory failure with hypoxia and hypercapnia (09/15/20) Cervical cancer Colon cancer screening Constipation COPD (chronic obstructive pulmonary disease) COPD exacerbation COPD with asthma Depression Essential (primary) hypertension Generalized anxiety disorder HFrEF (heart failure with reduced ejection fraction) (09/15/20) History of cervical cancer History of non-ST elevation myocardial infarction (NSTEMI) (09/15/20) History of pancreatitis HLD (hyperlipidemia) Left bundle branch block (LBBB) Major depressive disorder, recurrent, moderate Muscle spasm Nicotine dependence Non-ischemic cardiomyopathy Obesity Panic disorder Preventative health care Tobacco abuse counseling Home Medications aspirin 81 mg PO DAILY@0800 #30 tab 09/19/20 [Rx Last Taken Unknown] albuterol sulfate 90 mcg/actuation aerosol inhaler 2 puff INHALATION Q4H PRN PRN #8.5 g 10/04/20 [Rx Last Taken Unknown] vwzghghrks-qhitrkrphfyru-iyceqtiu 50 mg-300 mg-40 mg capsule 1 cap PO TID PRN #20 cap 01/06/21 [Rx Last Taken Unknown] lisinopril 2.5 mg tablet 2.5 mg PO DAILY tab 07/07/21 [History Last Taken Unknown] carvedilol 25 mg tablet 25 mg PO BID #180 tab 08/17/21 [Rx Last Taken Unknown] ondansetron 8 mg PO Q8H PRN PRN #16 tab 08/20/21 [Rx Last Taken Unknown] lorazepam 1 mg PO TID PRN #10 tablet 10/02/21 [Rx Last Taken Unknown] Allergy/AdvReac Type Severity Reaction Status Date / Time aspirin [From Fiorinal] Allergy Mild hives, SOB Verified 10/02/21 20:47 ketorolac [From Toradol] Allergy Shortness Verified 10/02/21 20:47 of breath naproxen [From Naprosyn] Allergy Shortness Verified 10/02/21 20:47 of breath ubrogepant [From Ubrelvy] AdvReac Sick Verified 10/02/21 20:47 Feeling Family History Mother Heart disease Hypertension Diabetes Father Heart disease Other Anxiety Asthma Surgical History H/O: hysterectomy History of cholecystectomy History of left heart catheterization (09/19/20) Social History household members: spouse Smoking Status: Light Smoker (<10/day) alcohol intake: never substance use type: does not use what type of physical activity do you participate in: none ROS ROS ED Constitutional Constitutional ED: Denies chills or weight loss Eyes Eyes: Denies change in vision or diplopia ENT ENT ED: Denies ear pain, rhinorrhea or sore throat Cardiovascular Cardiovascular: Denies chest pain, orthopnea, palpitations or racing heartbeat Respiratory/Chest Respiratory/Chest: Denies cough, dyspnea or orthopnea Gastrointestinal Gastrointestinal: Reports abdominal pain and nausea; Denies diarrhea or vomiting Genitourinary Genitourinary ED: Denies dysuria, hematuria or urinary frequency Musculoskeletal Musculoskeletal: Denies arthralgias or myalgias Integumentary Denies abscess or rash Neurologic Neurologic: Denies headache(s) or weakness Psychiatric Psychiatric: Denies anxiety, depression, suicidal ideation or suicidal thoughts Endocrine Endocrinology: Denies polydipsia, polyphagia or polyuria Allergic/Immunologic Allergic/Immunologic ED: Denies mouth swelling, tongue swelling or urticaria EXAM Physical Exam Const Vital Signs: 10/02/21 20:47 Temperature 97.1 F L Temperature Source Temporal Pulse Rate 87 Respiratory Rate 16 Blood Pressure 159/112 H Blood Pressure Mean 127 Pulse Ox 97 Oxygen Delivery Method Room Air Positive well nourished and well developed General Appearance ED: well developed HEENT Reports normocephalic, head/scalp atraumatic, TM's clear and moist mucous membranes Negative for trauma Tympanic Membrane ED: Yes TM's clear Eyes PERRL and EOMs intact bilaterally Neck no lymphadenopathy, supple and no JVD Resp normal respiratory effort and clear to auscultation bilaterally Cardio regular rate, regular rhythm and no murmurs GI normal to inspection, nondistended, normoactive bowel sounds and non-tender Palpation: soft Back/Spine no CVA tenderness and normal ROM Extremity normal to inspection General Extremety ED: Negative for edema General Extremity: Negative for edema Neuro oriented x3 and CN's II-XII intact bilaterally Sensorium / Orientation: alert Motor Exam: strength 5/5 throughout Psych Psych Narrative: Denies suicidal or homicidal ideation Mood & Affect: depressed and tearful Skin no rashes or lesions noted and no wounds MDM MDM MDM Narrative Medical decision making narrative: Basic blood work showed a white count of 11.4. CMP lipase normal. EKG sinus. Patient received Zofran and Ativan. She is able to get some sleep and feels substantially better. I do think this is very well could be panic attack. I will write for the patient to have some Ativan at home. Follow-up primary care Lab Data Attestation: I reviewed the patient's lab results. Labs: Laboratory Results - last 24 hr 10/02/21 10/02/21 21:00 21:00 WBC 11.4 H RBC 4.20 Hgb 13.6 Hct 40.6 MCV 96.7 MCH 32.4 H MCHC 33.5 RDW Std Deviation 44.3 H RDW Coeff of Tony 12.4 Plt Count 299 MPV 10.3 Immature Gran % (Auto) 0.400 Neut % (Auto) 61.7 Lymph % (Auto) 29.9 Weld % (Auto) 6.6 Eos % (Auto) 1.0 Baso % (Auto) 0.4 Absolute Neuts (auto) 7.0 Absolute Lymphs (auto) 3.40 Nucleated RBC % 0 Sodium 137 Potassium 3.7 Chloride 109 H Carbon Dioxide 23.0 Anion Gap 5 BUN 13 Creatinine 0.82 Estim Creat Clear Calc 72.57 Est GFR (MDRD) Af Amer 93 Est GFR (MDRD) Non-Af 77 BUN/Creatinine Ratio 15.8 Glucose 124 H Calcium 9.1 Total Bilirubin 0.20 Direct Bilirubin < 0.05 AST 12 L ALT 15 Alkaline Phosphatase 99 Total Protein 7.5 Albumin 3.7 Globulin 3.8 Lipase 136 EKG Initial EKG: Attestation: I personally reviewed and interpreted this EKG as follows: Comments: Sinus rhythm with left bundle branch block ventricular rate of 69 bpm Discharge Plan Triage Chief Complaint: Abd Pain ED Provider: Shabbir Bajwa Dx/Rx/DC Orders Clinical Impression: Nausea, Panic attack Instructions: ED Anxiety Reaction Prescriptions: New lorazepam [lorazepam] 1 MG tablet 1 mg PO TID PRN (Reason: Anxiety Reaction) Qty: 10 RF: 0 No Action albuterol sulfate 90 mcg/actuation HFA aerosol inhaler 2 puff INHALATION Q4H PRN PRN (Reason: Cough) Qty: 8.5 RF: 1 lisinopril 2.5 mg tablet 2.5 mg PO DAILY RF: 0 aspirin 81 mg Tablet,Chewable 81 mg PO DAILY@0800 Qty: 30 RF: 11 ondansetron [ondansetron] 4 MG tablet 8 mg PO Q8H PRN PRN (Reason: Nausea) Qty: 16 RF: 0 [id number]-bfwe [Fioricet] 50-300-40 mg capsule 1 cap PO TID PRN (Reason: migraine headache) Qty: 20 RF: 0 carvedilol 25 mg tablet 25 mg PO BID Qty: 180 RF: 3 Referrals: AROLDO DESIR [Other] Activity Restrictions/Additional Instructions: I do suggest you follow-up with primary care and talk about this visit. Disposition Disposition: Home, Self Care
[2021-10-02] MEDS: LORazepam 2 MG/ML Syringe 1 MG IV (21:08)
[2021-10-02] MEDS: Ondansetron 4 MG/2 ML Vial IV (21:08)
[2021-10-02 21:17] LABS: Basophil# 0.04 X10^3/uL; Basophil% 0.4 % (0-1); Eosinophil# 0.11 X10^3/uL; Hematocrit 40.6 % (37-47); Hemoglobin 13.6 g/dL (12.0-15.0); Lymphocyte % 29.9 % (19-41); Mean Corp Hgb Conc 33.5 g/dL (32-36); Mean Corpuscular Hgb 32.4 pg (27.0-32.0); Mean Corpuscular Volume 96.7 fL (81-99); Mean Platelet Vol. 10.3 fl (6.2-12.0); Monocyte# 0.75 X10^3/uL; Monocyte% 6.6 % (0-10); NRBC Flagged by Analyzer 0 % (0-5); Neutrophil # 7.03 X10^3/uL (2.7-7.7); Neutrophil % 61.7 % (47-70); Platelet Count 299 K/mm3 (150-450); RBC Distribution Width CV 12.4 % (11.6-14.6); RBC Distribution Width SD 44.3 fl (35.1-43.9); White Blood Count 11.4 K/mm3 (4.4-11.0)
[2021-10-02 21:52] LABS: AST(SGOT) 12 U/L (15-37); Alanine Aminotransfer ALT/SGPT 15 U/L (13-56); Albumin, Serum 3.7 g/dL (3.2-5.0); Alkaline Phosphatase 99 U/L (45-117); Anion Gap 5 (5-15); BUN 13 mg/dL (7-18); BUN/Creat Ratio 15.8 RATIO (10-20); Bilirubin, Direct < 0.05 mg/dL (0.00-0.30); Calcium,Total 9.1 mg/dL (8.5-10.1); Chloride 109 mmol/L (98-107); Creatinine, Serum 0.82 mg/dL (0.55-1.02); EST Glomerular Filtration Rate 77 mL/min (>60); Est Glom Filt Rate - Afr Amer 93 mL/min (>60); Estimated Creatinine Clearance 72.57 ml/min; Globulin 3.8 g/dL (2.2-4.2); Glucose 124 mg/dL (74-106); Lipase 136 U/L (73-393); Potassium 3.7 mmol/L (3.5-5.1); Protein, Total 7.5 g/dL (6.4-8.2); Sodium Level 137 mmol/L (136-145)
== END 2021-10-02 22:04 | disposition home or self-care (01) ==
PROVIDERS: Emergency Provider Emergency Medicine; Visit Provider Emergency Medicine
DX: F41.0 Panic disorder [episodic paroxysmal anxiety] (principal); J44.9 Chronic obstructive pulmonary disease, unspecified; I11.0 Hypertensive heart disease with heart failure; I50.22 Chronic systolic (congestive) heart failure; I42.8 Other cardiomyopathies; F33.1 Major depressive disorder, recurrent, moderate; R11.0 Nausea; E78.5 Hyperlipidemia, unspecified; I25.2 Old myocardial infarction; E66.9 Obesity, unspecified; F17.200 Nicotine dependence, unspecified, uncomplicated; Z68.29 Body mass index [BMI] 29.0-29.9, adult; Z79.82 Long term (current) use of aspirin; Z79.899 Other long term (current) drug therapy
CPT/HCPCS: 80048; 80076; 83690; 85025; 93005; 96374; 96375; 99283; A4216; J2405

== ENCOUNTER → 2021-10-18 | Outpatient (CLI) | payer MEDICAID, SELFPAY ==
--- NOTE | 2021-10-18 08:58 | ECHOD_ITS ---
Reason For Study: NON-ISCHEMIC CMP Procedure This was a 2D Doppler, Color Flow transthoracic echocardiogram. The study was technically difficult. Exam performed in department. Left Ventricle Normal LV size. The estimated ejection fraction is 30 %. Stage 1 diastolic dysfunction. There is moderate to severe global hypokinesis of the left ventricle. Right Ventricle Normal RV size. Normal systolic function. Atria Normal left atrium. Normal right atrium. Mitral Valve Normal mitral valve. Tricuspid Valve Normal tricuspid valve. Pulmonic Valve Normal pulmonic valve. Pericardium/Pleural No pericardial effusion. Medication 22 gauge I.V. with prn adaptor inserted into right arm. Diluted definity 3ml given slow IV push to enhance endocardial definition. MMode/2D Measurements & Calculations LVIDd: 5.0 cm IVSd: 0.89 cm Ao root diam: 3.0 cm LVIDs: 4.0 cm LVPWd: 0.76 cm RVDd: 3.2 cm FS: 20.5 % LAV(MOD-bp): 29.2 ml LVAd ap4: 28.9 cm2 SV(MOD-sp4): 31.7 ml LAV(MOD-bp) Indexed: 15.2 ml/m2 LVLd ap4: 8.0 cm LAV(MOD-sp2): 25.3 ml EDV(MOD-sp4): 88.3 ml LAV(MOD-sp4): 26.5 ml EDV(sp4-el): 89.0 ml LVAs ap4: 21.2 cm2 LVLs ap4: 7.0 cm ESV(MOD-sp4): 56.6 ml ESV(sp4-el): 54.7 ml EF(MOD-sp4): 35.9 % EF(sp4-el): 38.5 % SV(sp4-el): 34.3 ml LA dimension(2D): 3.0 cm LA A4 area: 12.5 cm2 RA A4 area: 11.9 cm2 Time Measurements MV dec time: 0.32 sec Doppler Measurements & Calculations MV E max andrew: 52.7 cm/sec Lat Peak E' Andrew: 6.8 cm/sec Med Peak E' Andrew: 6.2 cm/sec MV A max andrew: 79.3 cm/sec E/E' lat: 7.8 E/E' med: 8.4 MV E/A: 0.66 Ao V2 max: 138.4 cm/sec LV V1 max: 101.8 cm/sec PA V2 max: 100.0 cm/sec Ao max P.7 mmHg LV V1 max P.1 mmHg ECHO/Echo Complete W/ Contrast Interpretation Summary Normal LV size. There is moderate to severe global hypokinesis of the left ventricle. The estimated ejection fraction is 30 %. Stage 1 diastolic dysfunction. Contrast injection was performed. Compared to previous study, the left ventricu lar systolic function is the same.. Ordering Physician: Teetee Abbasi Performed By: Carmita Horton RDCS
== END | disposition home or self-care (01) ==
LOC: CVS 08:57
PROVIDERS: Referring Provider Nurse Practitioner Gerontology; Visit Provider Nurse Practitioner Gerontology
DX: I42.8 Other cardiomyopathies (principal)
CPT/HCPCS: 93306; Q9957; A4216; C8929

== ENCOUNTER 2021-11-13 22:19 | Emergency (ER) | payer MEDICAID, SELFPAY ==
[2021-11-13 22:20] VITALS: BP 154/121; PULSE 96; RESP 18; TEMP 35.5; O2SAT 99; BMI 29.0
--- NOTE | 2021-11-13 23:33 | EDS_ITS ---
HPI History of Present Illness Chief Complaint: Anxiety Informant: patient and spouse/S.O. Narrative Narrative: Patient presents with what she describes as an anxiety attack. This started this morning. But she went to bed immediately. She was able to get it to go better. Later this evening at about 5 or 6 and started up again. She just has a feeling of anxiousness. She is not actually having chest pain or shortness of breath but different than her chronic dyspnea. She states this is not her breathing causing this. This feels like anxiety to her. She was started on Prozac about 2 to 3 months ago. But she is on a very low dose. It has helped decrease the frequency of her attacks but not the severity. She was feeling fine when the panic feeling was not there. This is just like her prior attacks. [facility] Medical History Acute low back pain Acute respiratory failure with hypoxia and hypercapnia (09/15/20) Cervical cancer Colon cancer screening Constipation COPD (chronic obstructive pulmonary disease) COPD exacerbation COPD with asthma Depression Essential (primary) hypertension Generalized anxiety disorder HFrEF (heart failure with reduced ejection fraction) (09/15/20) History of cervical cancer History of non-ST elevation myocardial infarction (NSTEMI) (09/15/20) History of pancreatitis HLD (hyperlipidemia) Left bundle branch block (LBBB) Major depressive disorder, recurrent, moderate Muscle spasm Nicotine dependence Non-ischemic cardiomyopathy Obesity Panic disorder Preventative health care Tobacco abuse counseling Home Medications aspirin 81 mg chewable tablet 81 mg PO DAILY@0800 #30 tabs 09/19/20 [Rx Last Taken Unknown] albuterol sulfate 90 mcg/actuation aerosol inhaler 2 puff inhalation Q4H PRN PRN Cough #8.5 grams 10/04/20 [Rx Last Taken Unknown] zmhbodrbwa-gurrtjqhwlifa-cgtcmlxs 50 mg-300 mg-40 mg capsule (Fioricet) 1 cap PO TID PRN migraine headache #20 caps 01/06/21 [Rx Last Taken Unknown] carvedilol 25 mg tablet 25 mg PO BID #180 tabs 08/17/21 [Rx Last Taken Unknown] ondansetron 4 mg disintegrating tablet 8 mg PO Q8H PRN PRN Nausea #16 tabs 08/20/21 [Rx Last Taken Unknown] furosemide 40 mg tablet 40 mg PO DAILY #90 tabs 10/16/21 [Rx Last Taken Unknown] fluoxetine 10 mg capsule (Prozac) 10 mg PO DAILY 10/25/21 [History Last Taken Unknown] sacubitril 24 mg-valsartan 26 mg tablet (Entresto) 1 tab PO BID Reduced EF #60 tabs 10/25/21 [Rx Last Taken Unknown] lorazepam 1 mg tablet (Ativan) 1 mg PO BID PRN anxiety #10 tabs 11/13/21 [Rx Last Taken Unknown] Allergy/AdvReac Type Severity Reaction Status Date / Time aspirin [From Fiorinal] Allergy Mild hives, SOB Verified 11/13/21 22:22 ketorolac [From Toradol] Allergy Shortness Verified 11/13/21 22:22 of breath naproxen [From Naprosyn] Allergy Shortness Verified 11/13/21 22:22 of breath ubrogepant [From Ubrelvy] AdvReac Sick Verified 11/13/21 22:22 Feeling Family History Mother Heart disease Hypertension Diabetes Father Heart disease Other Anxiety Asthma Surgical History H/O: hysterectomy History of cholecystectomy History of left heart catheterization (09/19/20) Social History household members: spouse Smoking Status: Light Smoker (<10/day) alcohol intake: never substance use type: does not use what type of physical activity do you participate in: none ROS ROS ED Constitutional Constitutional ED: Denies chills or fever(s) Eyes Eyes: Denies blurry vision or change in vision ENT ENT ED: Denies sore throat Cardiovascular Cardiovascular: Denies chest pain Respiratory/Chest Respiratory/Chest: Denies cough or dyspnea Gastrointestinal Gastrointestinal: Denies nausea or vomiting Genitourinary Genitourinary ED: Denies dysuria Musculoskeletal Musculoskeletal: Denies back pain or neck pain Integumentary Denies rash Neurologic Neurologic: Denies headache(s) or weakness Psychiatric Psychiatric: Reports anxiety; Denies suicidal ideation or suicidal thoughts Endocrine Endocrinology: Denies polydipsia or polyuria Hematologic/Lymphatic Hematologic/Lymphatic: Denies easy bleeding or easy bruising Allergic/Immunologic Allergic/Immunologic ED: Denies urticaria EXAM Physical Exam Const Vital Signs: 11/13/21 22:20 Temperature 96 F L Temperature Source Temporal Pulse Rate 96 Respiratory Rate 18 Blood Pressure 154/121 H Blood Pressure Mean 132 Pulse Ox 99 Oxygen Delivery Method Room Air Positive well nourished and well developed General Appearance ED: well developed and NAD HEENT Reports moist mucous membranes Eyes EOMs intact bilaterally Neck no lymphadenopathy and no JVD Resp normal respiratory effort Resp Narrative: Her lungs actually sound clear. She is breathing easily. I hear no wheezing or rales. O2 saturations are 97 to 99% on room air on the monitor showing no hypoxia. Cardio regular rate and regular rhythm GI normal to inspection, nondistended, normoactive bowel sounds Back/Spine no CVA tenderness Extremity normal to inspection General Extremety ED: Negative for edema or tenderness General Extremity: Negative for edema Neuro oriented x3 Psych Psych Narrative: Patient's alert and oriented x3. But she is tearful. She feels shaky. She does look to be quite anxious. She states this is an anxiety attack. She Skin no rashes or lesions noted MDM MDM MDM Narrative Medical decision making narrative: Patient was easily aroused on repeat check. But she states she feels markedly better. She would like to go home now. I will write her for some meds. This patient has other illness and I think anxiety could make those worse. She will follow-up with her primary physician. She will discuss adjusting of chronic medications. If she develops repeat symptoms, chest pain, shortness of breath or other issues she should return. Discharge Plan Triage Chief Complaint: Anxiety ED Provider: Vance Peraza Dx/Rx/DC Orders Clinical Impression: Panic attack Instructions: ED Panic Attack Prescriptions: New lorazepam [Ativan] 1 mg tablet 1 mg PO BID PRN (Reason: anxiety) Qty: 10 0RF No Action albuterol sulfate 90 mcg/actuation HFA aerosol inhaler 2 puff INHALATION Q4H PRN PRN (Reason: Cough) Qty: 8.5 1RF fluoxetine [Prozac] 10 mg capsule 10 mg PO DAILY Entresto 24-26 mg tablet 1 tab PO BID Qty: 60 6RF Rx Instructions: Please stop Lisinopril 36 hours prior to starting Entresto. aspirin 81 mg Tablet,Chewable 81 mg PO DAILY@0800 Qty: 30 11RF ondansetron [ondansetron] 4 MG tablet 8 mg PO Q8H PRN PRN (Reason: Nausea) Qty: 16 0RF qmuiueqhuu-lfxxjfzxuisgf-cuxj [Fioricet] 50-300-40 mg capsule 1 cap PO TID PRN (Reason: migraine headache) Qty: 20 0RF carvedilol 25 mg tablet 25 mg PO BID Qty: 180 3RF furosemide 40 mg tablet 40 mg PO DAILY Qty: 90 3RF Primary Care Provider: AROLDO DESIR Referrals: AROLDO DESIR [Other] - 2 Days for wound check Disposition Disposition: Home, Self Care
[2021-11-13] MEDS: LORazepam 2 MG/ML Syringe 1 MG IM (23:41)
[2021-11-14 00:35] VITALS: BP 144/89; PULSE 74; RESP 18; O2SAT 98
== END 2021-11-14 00:37 | disposition home or self-care (01) ==
PROVIDERS: Emergency Provider Emergency Medicine; Visit Provider Emergency Medicine
DX: F41.0 Panic disorder [episodic paroxysmal anxiety] (principal); J44.9 Chronic obstructive pulmonary disease, unspecified; I11.0 Hypertensive heart disease with heart failure; I50.22 Chronic systolic (congestive) heart failure; F17.200 Nicotine dependence, unspecified, uncomplicated; E78.5 Hyperlipidemia, unspecified; Z79.82 Long term (current) use of aspirin; Z79.899 Other long term (current) drug therapy
CPT/HCPCS: 96372; 99282

== ENCOUNTER 2021-11-20 04:59 | Emergency (ER) | payer MEDICAID, SELFPAY ==
[2021-11-20 05:01] VITALS: BP 158/115; PULSE 79; RESP 17; TEMP 36.4; O2SAT 100; BMI 29.5
[2021-11-20 05:10] VITALS: O2SAT 88
--- NOTE | 2021-11-20 05:25 | EKG12_ITS ---
Test Reason : cp Blood Pressure : / mmHG Vent. Rate : 078 BPM Atrial Rate : 078 BPM P-R Int : 170 ms QRS Dur : 150 ms QT Int : 416 ms P-R-T Axes : 073 079 168 degrees QTc Int : 474 ms Normal sinus rhythm Left bundle branch block Abnormal ECG Confirmed by CARSON ELDER, TALI ([id number]), newspaper or periodical editor JOSE EDUARDO VIVAS ([id number]) on 11/21/2021 11:33:38 AM Referred By: Confirmed By:TALI BYRD MD
--- NOTE | 2021-11-20 05:25 | RAD_ITS ---
EXAM: XR CHEST, 1 VIEW CLINICAL INDICATION: Dyspnea. TECHNIQUE: Frontal view of the chest. This report was created using [employer] report generation technology. COMPARISON: 08/20/2021, 03/20/2021, and 01/12/2021. FINDINGS: LUNGS AND PLEURAL SPACES: Mild patchy opacity left lung base may be due to a small area of pneumonia. Small right lower lobe nodule unchanged since previous exams. No pneumothorax. No effusion. HEART: Unremarkable. Cardiac silhouette not enlarged. MEDIASTINUM: Central airways and mediastinal contour are unremarkable. BONES/JOINTS: Unremarkable. SOFT TISSUES: Unremarkable. RAD/Chest 1 View (Portable) IMPRESSION: 1. Mild patchy opacity left lung base may be due to a small area of pneumonia. 2. Small right lower lobe nodule unchanged since previous exams. Electronically Signed: Prasad Piedra MD at 6:17 EDT ,
[2021-11-20 05:37] VITALS: O2SAT 95
[2021-11-20] MEDS: 0.9% Normal Saline 1,000 ML 150 ML IV (05:46)
[2021-11-20] MEDS: Morphine 4 MG/ML Syringe IV (05:53)
[2021-11-20] MEDS: proMETHazine 25 MG/ML Syringe 12.5 MG IM (05:53)
[2021-11-20 05:57] LABS: Absolute Lymphocyte Count 2.14 X10^3/uL (0.83-4.51); Absolute Neutrophil Count 4.1 X10^3/uL (2.0-7.7); Basophil# 0.04 X10^3/uL; Basophil% 0.6 % (0-1); Eosinophil# 0.05 X10^3/uL; Eosinophils% 0.7 % (0-5); Hematocrit 38.6 % (37-47); Hemoglobin 13.2 g/dL (12.0-15.0); Lymphocyte # 2.14 X10^3/ul (0.83-4.51); Lymphocyte % 30.8 % (19-41); Mean Corp Hgb Conc 34.2 g/dL (32-36); Mean Corpuscular Hgb 32.9 pg (27.0-32.0); Mean Corpuscular Volume 96.3 fL (81-99); Mean Platelet Vol. 11.2 fl (6.2-12.0); Monocyte# 0.57 X10^3/uL; Monocyte% 8.2 % (0-10); NRBC Flagged by Analyzer 0 % (0-5); Neutrophil # 4.12 X10^3/uL (2.7-7.7); Neutrophil % 59.4 % (47-70); Platelet Count 281 K/mm3 (150-450); RBC Distribution Width CV 12.6 % (11.6-14.6); RBC Distribution Width SD 45.1 fl (35.1-43.9); Red Blood Count 4.01 M/mm3 (4.2-5.4); White Blood Count 6.9 K/mm3 (4.4-11.0)
[2021-11-20 06:17] LABS: D-Dimer Quantitative (DVT/PE) 2.41 FEU/ug/m (0.27-0.49)
[2021-11-20 06:22] LABS: AST(SGOT) 28 U/L (15-37); Alanine Aminotransfer ALT/SGPT 15 U/L (13-56); Albumin, Serum 3.1 g/dL (3.2-5.0); Alkaline Phosphatase 82 U/L (45-117); Anion Gap 4 (5-15); BUN 11 mg/dL (7-18); BUN/Creat Ratio 15.5 RATIO (10-20); Bilirubin, Direct < 0.05 mg/dL (0.00-0.30); Calcium,Total 8.4 mg/dL (8.5-10.1); Chloride 109 mmol/L (98-107); Creatinine, Serum 0.71 mg/dL (0.55-1.02); EST Glomerular Filtration Rate 91 mL/min (>60); Est Glom Filt Rate - Afr Amer 110 mL/min (>60); Estimated Creatinine Clearance 83.81 ml/min; Globulin 3.7 g/dL (2.2-4.2); Glucose 118 mg/dL (74-106); Potassium 4.1 mmol/L (3.5-5.1); Protein, Total 6.8 g/dL (6.4-8.2); Sodium Level 137 mmol/L (136-145); Troponin-I HS 12 pg/mL (3.0-54.0)
--- NOTE | 2021-11-20 06:25 | CT_ITS ---
EXAM: CT ANGIOGRAPHY CHEST, ABDOMEN AND PELVIS WITH INTRAVENOUS CONTRAST CLINICAL INDICATION: hypoxia, elevated d-dimer TECHNIQUE: Helically acquired angiography images were obtained of the chest, abdomen and pelvis with intravenous contrast. This CT exam was performed using one or more of the following dose reduction techniques: automated exposure control, adjustment of the mA and/or kV according to patient size, and/or use of iterative reconstruction technique. This report was created using [employer] report generation technology. MIP reconstructed images were created and reviewed. CONTRAST: IV 100mL Isovue-370 RADIATION DOSE: CTDIvol = 15.75 mGy, DLP = 1449.09 mGy-cm. COMPARISON: None. FINDINGS: VASCULATURE: AORTA: Moderate atherosclerotic changes distal abdominal aorta and bilateral common iliac arteries. Normal in caliber. No dissection. PULMONARY ARTERIES: No pulmonary embolism. GREAT VESSELS OF AORTIC ARCH: Unremarkable. Normal in caliber. No dissection. CELIAC TRUNK AND MESENTERIC ARTERIES: No acute findings. No occlusion or significant stenosis. No dissection. RENAL ARTERIES: No acute findings. No occlusion or significant stenosis. No dissection. ILIAC ARTERIES: See above. CHEST: LUNGS AND PLEURAL SPACES: Mucus plugging in several segmental and subsegmental bronchi in the lower lobes bilaterally. Moderate emphysema. No mass. No pleural effusion or thickening. No pneumothorax. HEART: Unremarkable. Heart size is normal. No pericardial effusion. MEDIASTINUM: Unremarkable. No mediastinal or hilar adenopathy. Esophagus is unremarkable. No hiatal hernia. THYROID: Unremarkable. No thyroid lesions. ABDOMEN: LIVER: Unremarkable. Homogeneous. No focal mass. GALLBLADDER AND BILE DUCTS: Cholecystectomy. No intra- or extrahepatic biliary ductal dilation. PANCREAS: Unremarkable. No focal cystic or solid mass. SPLEEN: Calcified granulomas in the spleen. ADRENALS: Unremarkable. No nodules. KIDNEYS AND URETERS: Unremarkable. Normal renal size and position. No hydronephrosis. STOMACH AND BOWEL: Numerous sigmoid diverticula without diverticulitis. No stomach or bowel distention. PELVIS: APPENDIX: Normal appendix. BLADDER: Unremarkable. REPRODUCTIVE: Hysterectomy. CHEST, ABDOMEN and PELVIS: INTRAPERITONEAL SPACE: Unremarkable. No ascites or other fluid collection. No free air. BONES/JOINTS: Unremarkable. No suspicious lytic or blastic abnormality. SOFT TISSUES: Unremarkable. No discrete abdominal or pelvic wall hernia. LYMPH NODES: Unremarkable. No enlarged lymph nodes. CT/CTA Chst, Abd, Pel W and/or WO IMPRESSION: 1. No pulmonary embolism or dissection. 2. Mucus plugging in several segmental and subsegmental bronchi in the lower lobes bilaterally. 3. Moderate emphysema. 4. Moderate atherosclerotic changes distal abdominal aorta and bilateral common iliac arteries. 5. Hysterectomy. 6. Cholecystectomy. Electronically Signed: Prasad Piedra MD at 7:36 EDT ,
[2021-11-20 06:47] LABS: Mucous, Urine 0 SEEN /hpf (<or=2+)
[2021-11-20 06:48] LABS: Color, Urine Yellow (Yellow); Glucose, Dipstick Normal (Normal); Ketone-Dipstick 5 mg/dl (Negative); Leukocyte Esterase-Dipstick 25 /ul (Negative); Nitrite-Dipstick Negative (Negative); Occult Blood-Urine 25 /ul (Negative); Protein-Dipstick 15 mg/dl (Negative); Specific Gravity, Urine 1.015 (1.002-1.030); Urine Bilirubin Dipstick Negative (Negative); Urine Clarity Clear (Clear); Urine Urobilinogen 1 mg/dl (Normal); Urine pH 6.5 (5.0 - 8.0)
[2021-11-20 06:56] LABS: Red Blood Cells-Urine 0-5 SEEN /hpf (0-5); Squamous Epithelial Cells - UA 0-5 SEEN /hpf (5-10); White Blood Cells 0-5 SEEN /hpf (0-5)
[2021-11-20 06:57] LABS: Bacteria 1+ /hpf (None Seen)
--- NOTE | 2021-11-20 07:08 | EDS_ITS ---
HPI History of Present Illness Chief Complaint: Chest Pain Detail of Chief Complaint: Abdominal pain, shortness of breath, nausea Informant: patient Onset/Context/Timing Onset: Yesterday Current Severity: Moderate Maximum Severity: Moderate Narrative Narrative: Patient presents primarily secondary to low abdominal pain with nausea. She reports EMS gave her Zofran but it has not been effective. She does have intermittent sharp pain to the left chest that she gets fairly frequently. Patient does have prior NSTEMI with low ejection fraction of 30%. She denies fever or chills. No vomiting or diarrhea. [facility] Medical History Acute low back pain Acute respiratory failure with hypoxia and hypercapnia (09/15/20) Cervical cancer Colon cancer screening Constipation COPD (chronic obstructive pulmonary disease) COPD with asthma Depression Essential (primary) hypertension Generalized anxiety disorder HFrEF (heart failure with reduced ejection fraction) (09/15/20) History of cervical cancer History of non-ST elevation myocardial infarction (NSTEMI) (09/15/20) History of pancreatitis HLD (hyperlipidemia) Left bundle branch block (LBBB) Major depressive disorder, recurrent, moderate Muscle spasm Nicotine dependence Non-ischemic cardiomyopathy Obesity Panic disorder Preventative health care Tobacco abuse counseling Home Medications aspirin 81 mg chewable tablet 81 mg PO DAILY@0800 #30 tabs 09/19/20 [Rx Last Taken Unknown] albuterol sulfate 90 mcg/actuation aerosol inhaler 2 puff inhalation Q4H PRN PRN Cough #8.5 grams 10/04/20 [Rx Last Taken Unknown] qozyiesltz-tzmnmbifdwhcu-zgilevzy 50 mg-300 mg-40 mg capsule (Fioricet) 1 cap PO TID PRN migraine headache #20 caps 01/06/21 [Rx Last Taken Unknown] carvedilol 25 mg tablet 25 mg PO BID #180 tabs 08/17/21 [Rx Last Taken Unknown] ondansetron 4 mg disintegrating tablet 8 mg PO Q8H PRN PRN Nausea #16 tabs 08/20/21 [Rx Last Taken Unknown] furosemide 40 mg tablet 40 mg PO DAILY #90 tabs 10/16/21 [Rx Last Taken Unknown] fluoxetine 10 mg capsule (Prozac) 10 mg PO DAILY 10/25/21 [History Last Taken Unknown] lorazepam 1 mg tablet (Ativan) 1 mg PO BID PRN anxiety #10 tabs 11/13/21 [Rx Last Taken Unknown] lisinopril 2.5 mg tablet 1 tab PO DAILY 11/20/21 [History Last Taken Unknown] Allergy/AdvReac Type Severity Reaction Status Date / Time aspirin [From Fiorinal] Allergy Mild hives, SOB Verified 11/20/21 05:05 ketorolac [From Toradol] Allergy Shortness Verified 11/20/21 05:05 of breath naproxen [From Naprosyn] Allergy Shortness Verified 11/20/21 05:05 of breath ubrogepant [From Ubrelvy] AdvReac Sick Verified 11/20/21 05:05 Feeling Family History Mother Heart disease Hypertension Diabetes Father Heart disease Other Anxiety Asthma Surgical History H/O: hysterectomy History of cholecystectomy History of left heart catheterization (09/19/20) Social History household members: spouse Smoking Status: Light Smoker (<10/day) alcohol intake: never substance use type: does not use what type of physical activity do you participate in: none ROS ROS ED Constitutional Constitutional ED: Denies chills or fever(s) Eyes Eyes: Denies change in vision or discharge from eye(s) ENT ENT ED: Denies discharge from eye(s), rhinorrhea or sore throat Cardiovascular Cardiovascular: Reports chest pain; Denies palpitations Respiratory/Chest Respiratory/Chest: Reports dyspnea; Denies cough Gastrointestinal Gastrointestinal: Reports abdominal pain and nausea; Denies diarrhea or vomiting Genitourinary Genitourinary ED: Denies difficulty urinating or dysuria Musculoskeletal Musculoskeletal: Denies back pain or extremity pain Integumentary Denies Abrasions or rash Neurologic Neurologic: Denies headache(s) or weakness Psychiatric Psychiatric: Reports anxiety; Denies depression Allergic/Immunologic Allergic/Immunologic ED: Denies lip swelling or urticaria EXAM Physical Exam Const Vital Signs: 11/20/21 05:01 11/20/21 05:10 11/20/21 05:37 Temperature 97.5 F L Temperature Source Temporal Pulse Rate 79 Respiratory Rate 17 Blood Pressure 158/115 H Blood Pressure Mean 129 Pulse Ox 100 88 95 Oxygen Delivery Method Non-Rebreather Room Air Nasal Cannula Oxygen Flow Rate (L/min) 15 2 Positive well nourished and well developed General Appearance ED: well developed HEENT Reports normocephalic and head/scalp atraumatic Eyes PERRL and EOMs intact bilaterally Neck supple Chest Wall inspection of chest normal and palpation of chest normal Resp normal respiratory effort and clear to auscultation bilaterally Cardio regular rate and regular rhythm GI GI Narrative: Mild lower abdominal tenderness to palpation. No guarding or rebound. Auscultation: hypoactive bowel sounds Palpation: soft Back/Spine no CVA tenderness Extremity normal to inspection Neuro oriented x3 and no sensory deficits noted Sensorium / Orientation: alert Motor Exam: strength 5/5 throughout Psych Mood & Affect: anxious and tearful Skin no rashes or lesions noted MDM MDM MDM Narrative Medical decision making narrative: Patient was given dose of morphine and Phenergan for pain and nausea. IV fluids given. EKG, chest x-ray, lab work obtained. Urinalysis ordered. COVID swab obtained. Lab Data Attestation: I reviewed the patient's lab results. Labs: Laboratory Results - last 24 hr 11/20/21 11/20/21 11/20/21 05:50 05:50 05:50 WBC 6.9 RBC 4.01 L Hgb 13.2 Hct 38.6 MCV 96.3 MCH 32.9 H MCHC 34.2 RDW Std Deviation 45.1 H RDW Coeff of Tony 12.6 Plt Count 281 MPV 11.2 Immature Gran % (Auto) 0.300 Neut % (Auto) 59.4 Lymph % (Auto) 30.8 [place] % (Auto) 8.2 Eos % (Auto) 0.7 Baso % (Auto) 0.6 Absolute Neuts (auto) 4.1 Absolute Lymphs (auto) 2.14 Nucleated RBC % 0 D-Dimer Quant (PE/DVT) 2.41 H* Sodium 137 Potassium 4.1 Chloride 109 H Carbon Dioxide 24.0 Anion Gap 4 L BUN 11 Creatinine 0.71 Estim Creat Clear Calc 83.81 Est GFR (MDRD) Af Amer 110 Est GFR (MDRD) Non-Af 91 BUN/Creatinine Ratio 15.5 Glucose 118 H Calcium 8.4 L Total Bilirubin 0.50 Direct Bilirubin < 0.05 AST 28 ALT 15 Alkaline Phosphatase 82 Troponin I High Sens 12 Total Protein 6.8 Albumin 3.1 L Globulin 3.7 Urine Color Urine Clarity Urine pH Ur Specific [place] Urine Protein Urine Glucose (UA) Urine Ketones Urine Occult Blood Urine Nitrite Urine Bilirubin Urine Urobilinogen Ur Leukocyte Esterase Urine RBC Urine WBC Ur Squamous Epith Cells Urine Bacteria Urine Mucus 11/20/21 06:35 WBC RBC Hgb Hct MCV MCH MCHC RDW Std Deviation RDW Coeff of [place] Plt Count MPV Immature Gran % (Auto) Neut % (Auto) Lymph % (Auto) [place] % (Auto) Eos % (Auto) Baso % (Auto) Absolute Neuts (auto) Absolute Lymphs (auto) Nucleated RBC % D-Dimer Quant (PE/DVT) Sodium Potassium Chloride Carbon Dioxide Anion Gap BUN Creatinine Estim Creat Clear Calc Est GFR (MDRD) Af Amer Est GFR (MDRD) Non-Af BUN/Creatinine Ratio Glucose Calcium Total Bilirubin Direct Bilirubin AST ALT Alkaline Phosphatase Troponin I High Sens Total Protein Albumin Globulin Urine Color Yellow Urine Clarity Clear Urine pH 6.5 Ur Specific [place] 1.015 Urine Protein 15 H Urine Glucose (UA) Normal Urine Ketones 5 H Urine Occult Blood 25 H Urine Nitrite Negative Urine Bilirubin Negative Urine Urobilinogen 1 H Ur Leukocyte Esterase 25 H Urine RBC 0-5 SEEN Urine WBC 0-5 SEEN Ur Squamous Epith Cells 0-5 SEEN Urine Bacteria 1+ Urine Mucus 0 SEEN Radiography Chest X-Ray - ED: 1 View, Read by ED Physician and Chronic Changes Diagnostic Testing: Clinical Impression(s) from Imaging Studies Chest X-Ray 11/20/21 05:25 IMPRESSION: 1. Mild patchy opacity left lung base may be due to a small area of pneumonia. 2. Small right lower lobe nodule unchanged since previous exams. Electronically Signed: Prasad Piedra MD at 6:17 EDT , Chest/Abdomen/Pelvis CTA 11/20/21 06:25 IMPRESSION: 1. No pulmonary embolism or dissection. 2. Mucus plugging in several segmental and subsegmental bronchi in the lower lobes bilaterally. 3. Moderate emphysema. 4. Moderate atherosclerotic changes distal abdominal aorta and bilateral common iliac arteries. 5. Hysterectomy. 6. Cholecystectomy. Electronically Signed: Prasad Piedra MD at 7:36 EDT , EKG Initial EKG: Attestation: I personally reviewed and interpreted this EKG as follows: Interpretation: Sinus Rhythm (Sinus at 78 with left bundle branch block. No significant change when compared to prior study.) Treatment and Re-Evaluation Narrative: On repeat evaluation patient sleeping comfortably. She had initially been taken down to 3 L nasal cannula from the nonrebreather she came in on. Her room oxygen saturation was 88% on arrival. When I went back to reevaluate her she had pulled the oxygen off and was satting 91% on room air while sleeping. While awake she is satting 95%. Test results are discussed with her. Lab work reveals normal CBC and chemistry studies. LFTs and troponin are normal. D- dimer is elevated at 2.41. Urinalysis reveals no obvious infection. CTA of the chest is obtained. There is no evidence of pulmonary emboli. She does have some mucus plugging noted. CT of the abdomen pelvis is also obtained at the same time and reveals no acute abnormalities in the abdomen. At this time patient does feel significantly improved and is comfortable with discharge to home. Discharge Plan Triage Chief Complaint: Chest Pain ED Provider: Marline Prabhakar Dx/Rx/DC Orders Clinical Impression: Abdominal pain, Atypical chest pain Instructions: ED Abdominal Pain Unkn Cause Fem, ED Chest Pain, Noncardiac Prescriptions: No Action albuterol sulfate 90 mcg/actuation HFA aerosol inhaler 2 puff INHALATION Q4H PRN PRN (Reason: Cough) Qty: 8.5 1RF fluoxetine [Prozac] 10 mg capsule 10 mg PO DAILY aspirin 81 mg Tablet,Chewable 81 mg PO DAILY@0800 Qty: 30 11RF ondansetron [ondansetron] 4 MG tablet 8 mg PO Q8H PRN PRN (Reason: Nausea) Qty: 16 0RF lorazepam [Ativan] 1 mg tablet 1 mg PO BID PRN (Reason: anxiety) Qty: 10 0RF lisinopril 2.5 mg tablet 1 tab PO DAILY [id number] [Fioricet] 50-300-40 mg capsule 1 cap PO TID PRN (Reason: migraine headache) Qty: 20 0RF carvedilol 25 mg tablet 25 mg PO BID Qty: 180 3RF furosemide 40 mg tablet 40 mg PO DAILY Qty: 90 3RF Primary Care Provider: AROLDO DESIR Referrals: AROLDO DESIR [Other] - 3-5 Days if not improving Disposition Disposition: Home, Self Care
[2021-11-20 08:06] VITALS: BP 136/79; PULSE 73; RESP 16; TEMP 36.7; O2SAT 97
[2021-11-20 08:17] VITALS: BP 161/79; PULSE 71; RESP 16; O2SAT 98
== END 2021-11-20 08:18 | disposition home or self-care (01) ==
PROVIDERS: Emergency Provider Emergency Medicine; Visit Provider Emergency Medicine
DX: R07.89 Other chest pain (principal); J44.9 Chronic obstructive pulmonary disease, unspecified; I11.0 Hypertensive heart disease with heart failure; I50.22 Chronic systolic (congestive) heart failure; R10.30 Lower abdominal pain, unspecified; I25.2 Old myocardial infarction; E78.5 Hyperlipidemia, unspecified; E66.9 Obesity, unspecified; F17.200 Nicotine dependence, unspecified, uncomplicated; Z68.29 Body mass index [BMI] 29.0-29.9, adult; Z79.82 Long term (current) use of aspirin; Z79.899 Other long term (current) drug therapy
CPT/HCPCS: 71045; 71275; 74174; 80048; 80076; 81001; 84484; 85025; 85379; 87811; 93005; 96361; 96372; 96374; 99285; Q9967

== ENCOUNTER 2021-12-21 13:01 | Emergency (ER) | payer MEDICAID, SELFPAY ==
[2021-12-21 13:02] VITALS: BP 118/94; PULSE 83; RESP 20; TEMP 36.2; O2SAT 95; BMI 29.4
--- NOTE | 2021-12-21 13:08 | EKG12_ITS ---
Test Reason : CP Blood Pressure : / mmHG Vent. Rate : 075 BPM Atrial Rate : 075 BPM P-R Int : 180 ms QRS Dur : 090 ms QT Int : 402 ms P-R-T Axes : 085 072 096 degrees QTc Int : 448 ms Sinus rhythm with Premature supraventricular complexes Nonspecific ST and T wave abnormality Abnormal ECG Confirmed by LACI ELDER, KENIA ([id number]), editor farm journal JOSE EDUARDO VIVAS ([id number]) on 12/25/2021 9:28:32 AM Referred By: PACO Confirmed By:LATOYA AGUERO MD
--- NOTE | 2021-12-21 13:20 | RAD_ITS ---
STUDY: X-RAY CHEST REASON FOR EXAM: Female, 56 years old. Chest pain TECHNIQUE: Single AP portable view of the chest. COMPARISON: Comparison is made with prior study dated 11/20/2021. FINDINGS: EKG electrodes are seen. Hyperinflation. Scattered calcified granulomas. The lungs are clear. There is no demonstrated pleural abnormality. Normal size heart. Normal mediastinum and dinesh. Normal visualized pulmonary arteries. Normal visualized aortic arch and descending thoracic aorta. Normal visualized thoracic spine. Normal visualized ribs, clavicles, and shoulders. There is no demonstrated abnormality of the visualized soft tissue structures of the upper abdomen. RAD/Chest 1 View (Portable) IMPRESSION: Hyperinflation. No acute abnormality is seen. Electronically Signed: Lior Flor MD at 13:41 EDT ,
[2021-12-21 13:25] LABS: Absolute Lymphocyte Count 3.17 X10^3/uL (0.83-4.51); Absolute Neutrophil Count 4.2 X10^3/uL (2.0-7.7); Basophil# 0.06 X10^3/uL; Basophil% 0.7 % (0-1); Eosinophil# 0.03 X10^3/uL; Eosinophils% 0.4 % (0-5); Hematocrit 40.8 % (37-47); Hemoglobin 13.6 g/dL (12.0-15.0); Lymphocyte # 3.17 X10^3/ul (0.83-4.51); Mean Corp Hgb Conc 33.3 g/dL (32-36); Mean Corpuscular Hgb 31.9 pg (27.0-32.0); Mean Corpuscular Volume 95.6 fL (81-99); Mean Platelet Vol. 10.6 fl (6.2-12.0); Monocyte# 0.67 X10^3/uL; Monocyte% 8.2 % (0-10); NRBC Flagged by Analyzer 0 % (0-5); Neutrophil # 4.18 X10^3/uL (2.7-7.7); Neutrophil % 51.5 % (47-70); Platelet Count 257 K/mm3 (150-450); RBC Distribution Width CV 12.8 % (11.6-14.6); RBC Distribution Width SD 45.3 fl (35.1-43.9); Red Blood Count 4.27 M/mm3 (4.2-5.4); White Blood Count 8.1 K/mm3 (4.4-11.0)
[2021-12-21 13:42] LABS: Anion Gap 9 (5-15); BUN 8 mg/dL (7-18); BUN/Creat Ratio 9.7 RATIO (10-20); Calcium,Total 9.2 mg/dL (8.5-10.1); Chloride 105 mmol/L (98-107); Creatinine, Serum 0.82 mg/dL (0.55-1.02); EST Glomerular Filtration Rate 77 mL/min (>60); Est Glom Filt Rate - Afr Amer 93 mL/min (>60); Estimated Creatinine Clearance 72.57 ml/min; Glucose 117 mg/dL (74-106); Potassium 3.4 mmol/L (3.5-5.1); Sodium Level 137 mmol/L (136-145); Troponin-I HS (w/2H Reflex) 8 pg/mL (3.0-54.0)
[2021-12-21 14:02] VITALS: BP 147/99; PULSE 82; RESP 14; O2SAT 97
[2021-12-21 14:09] LABS: AST(SGOT) 16 U/L (15-37); Alanine Aminotransfer ALT/SGPT 15 U/L (13-56); Albumin, Serum 3.5 g/dL (3.2-5.0); Alkaline Phosphatase 84 U/L (45-117); Bilirubin, Direct 0.11 mg/dL (0.00-0.30); Globulin 3.9 g/dL (2.2-4.2); Lipase 101 U/L (73-393); Protein, Total 7.4 g/dL (6.4-8.2)
--- NOTE | 2021-12-21 14:13 | ED.VIS.CHEST ---
HPI History of Present Illness Chief Complaint: Chest Pain Narrative Narrative: This is a 56-year-old female with history of cardiac disease, hypertension, hyperlipidemia as well as ongoing lower abdominal pain. She was seen here 11/20/2021 for similar symptoms. She describes lower suprapubic pain which is sharp and at times radiates up into her chest. She does have associated nausea and vomiting but is not lightheaded, diaphoretic. Patient had blood work done on 11/20/2021 which was unremarkable with exception of elevated D-dimer. She had a CTA of the chest and a CT of the abdomen pelvis with IV contrast and these were both negative. Patient states that she does have a GI doctor and has an appointment on December 28 for follow-up. She states nobody can figure out what is wrong with me. She also reports that she called EMS today because of her pain and was given 100 mcg of fentanyl and Zofran on the way. She does report that she has Zofran at home. She is also complaining of decreased p.o. intake and concern for possible dehydration. She states I just do not want to eat. [facility] Medical History Acute low back pain Acute respiratory failure with hypoxia and hypercapnia (09/15/20) Cervical cancer Colon cancer screening Constipation COPD (chronic obstructive pulmonary disease) COPD with asthma Depression Essential (primary) hypertension Generalized anxiety disorder HFrEF (heart failure with reduced ejection fraction) (09/15/20) History of cervical cancer History of non-ST elevation myocardial infarction (NSTEMI) (09/15/20) History of pancreatitis HLD (hyperlipidemia) Left bundle branch block (LBBB) Major depressive disorder, recurrent, moderate Muscle spasm Nicotine dependence Non-ischemic cardiomyopathy Obesity Panic disorder Preventative health care Tobacco abuse counseling Home Medications aspirin 81 mg chewable tablet 81 mg PO DAILY@0800 #30 tabs 09/19/20 [Rx Last Taken Unknown] albuterol sulfate 90 mcg/actuation aerosol inhaler 2 puff inhalation Q4H PRN PRN Cough #8.5 grams 10/04/20 [Rx Last Taken Unknown] lenaiplrmd-zhonqvkotnwlk-fmhtxujj 50 mg-300 mg-40 mg capsule (Fioricet) 1 cap PO TID PRN migraine headache #20 caps 01/06/21 [Rx Last Taken Unknown] carvedilol 25 mg tablet 25 mg PO BID #180 tabs 08/17/21 [Rx Last Taken Unknown] ondansetron 4 mg disintegrating tablet 8 mg PO Q8H PRN PRN Nausea #16 tabs 08/20/21 [Rx Last Taken Unknown] furosemide 40 mg tablet 40 mg PO DAILY #90 tabs 10/16/21 [Rx Last Taken Unknown] fluoxetine 10 mg capsule (Prozac) 10 mg PO DAILY 10/25/21 [History Last Taken Unknown] lorazepam 1 mg tablet (Ativan) 1 mg PO BID PRN anxiety #10 tabs 11/13/21 [Rx Last Taken Unknown] lisinopril 2.5 mg tablet 1 tab PO DAILY 11/20/21 [History Last Taken Unknown] promethazine 25 mg tablet 25 mg PO TID PRN nausea and vomiting #14 tabs 12/21/21 [Rx Last Taken Unknown] Allergy/AdvReac Type Severity Reaction Status Date / Time aspirin [From Fiorinal] Allergy Mild hives, SOB Verified 11/20/21 05:05 ketorolac [From Toradol] Allergy Shortness Verified 11/20/21 05:05 of breath naproxen [From Naprosyn] Allergy Shortness Verified 11/20/21 05:05 of breath ubrogepant [From Ubrelvy] AdvReac Sick Verified 11/20/21 05:05 Feeling Family History Mother Heart disease Hypertension Diabetes Father Heart disease Other Anxiety Asthma Surgical History H/O: hysterectomy History of cholecystectomy History of left heart catheterization (09/19/20) Social History household members: spouse Smoking Status: Light Smoker (<10/day) alcohol intake: never substance use type: does not use what type of physical activity do you participate in: none EXAM Physical Exam Const Vital Signs: 12/21/21 13:02 12/21/21 13:06 12/21/21 14:02 Temperature 97.1 F L Temperature Source Temporal Pulse Rate 83 82 Respiratory Rate 20 H 14 Respiratory Effort Normal Blood Pressure 118/94 H 147/99 H Blood Pressure Mean 102 115 Pulse Ox 95 97 Oxygen Delivery Method Room Air Room Air 12/21/21 15:00 Temperature Temperature Source Pulse Rate 71 Respiratory Rate 12 Respiratory Effort Blood Pressure 140/95 H Blood Pressure Mean 110 Pulse Ox 97 Oxygen Delivery Method Room Air Positive well nourished General Appearance ED: NAD; Negative for pallor HEENT Reports moist mucous membranes normocephalic and atraumatic Eyes PERRL and EOMs intact bilaterally Chest Wall inspection of chest normal and palpation of chest normal Resp normal respiratory effort and clear to auscultation bilaterally Auscultation: Negative for rales, rhonchi or wheezes Cardio regular rate and regular rhythm GI normal to inspection, nondistended, normoactive bowel sounds Neuro oriented x3 and CN's II-XII intact bilaterally Sensorium / Orientation: awake and alert Skin no rashes or lesions noted and no wounds General Skin Exam: Negative for jaundice or pallor Heart Score History: Slightly/Non-Suspicious ECG: Normal Risk Factors: No Risk Factors Troponin: </= Normal Limit Score: 0 MDM MDM MDM Narrative Medical decision making narrative: 56-year-old female presenting with similar symptoms of her previous visit on 11/20/2021. She has had lab work and imaging for this which was all normal. She was referred to GI for follow-up. She reports to me that she was at [place] last evening and had a work-up and nobody can find what is wrong with me. On examination she has no reproducible abdominal pain. She states that the chest pain is not new for her either. I did obtain an EKG which shows a sinus rhythm with a ventricular to 75 bpm without any new abnormalities on my interpretation. Her chest x-ray on my interpretation shows no acute cardiopulmonary process and the radiologist agree. CBC shows a normal white blood cell 8.1. Hemoglobin 13.6. Platelets 257. Renal function and electrolytes are normal with exception of a potassium of 3.4. Her LFTs and lipase are normal. High-sensitivity troponin is 8. I do not believe she needs another troponin. This seems to be an ongoing issue. I do believe she needs to follow-up with GI. She tells me that she had a urinalysis checked last night in [place] and this was normal and does not want it rechecked. Patient was given some Reglan to help with nausea for home. Impression: 1. Nausea/vomiting 2. Chest pain noncardiac 3. Abdominal pain Lab Data Attestation: I reviewed the patient's lab results. Labs: Laboratory Results - last 24 hr 12/21/21 12/21/21 12/21/21 13:12 13:12 13:12 WBC 8.1 RBC 4.27 Hgb 13.6 Hct 40.8 MCV 95.6 MCH 31.9 MCHC 33.3 RDW Std Deviation 45.3 H RDW Coeff of [place] 12.8 Plt Count 257 MPV 10.6 Immature Gran % (Auto) 0.200 Neut % (Auto) 51.5 Lymph % (Auto) 39.0 [place] % (Auto) 8.2 Eos % (Auto) 0.4 Baso % (Auto) 0.7 Absolute Neuts (auto) 4.2 Absolute Lymphs (auto) 3.17 Nucleated RBC % 0 Sodium 137 Potassium 3.4 L Chloride 105 Carbon Dioxide 23.0 Anion Gap 9 BUN 8 Creatinine 0.82 Estim Creat Clear Calc 72.57 Est GFR (MDRD) Af Amer 93 Est GFR (MDRD) Non-Af 77 BUN/Creatinine Ratio 9.7 L Glucose 117 H Calcium 9.2 Total Bilirubin 0.50 Direct Bilirubin 0.11 AST 16 ALT 15 Alkaline Phosphatase 84 Troponin I High Sens 8 Total Protein 7.4 Albumin 3.5 Globulin 3.9 Lipase 101 Radiography Diagnostic Testing: Clinical Impression(s) from Imaging Studies Chest X-Ray 12/21/21 13:20 IMPRESSION: Hyperinflation. No acute abnormality is seen. Electronically Signed: Lior Flor MD at 13:41 EDT , Discharge Plan Triage Chief Complaint: Chest Pain ED Provider: Salomón Bautista Dx/Rx/DC Orders Instructions: ED Abdominal Pain Unkn Cause Fem, ED Chest Pain, Noncardiac Prescriptions: New promethazine 25 mg tablet 25 mg PO TID PRN (Reason: nausea and vomiting) Qty: 14 0RF No Action albuterol sulfate 90 mcg/actuation HFA aerosol inhaler 2 puff INHALATION Q4H PRN PRN (Reason: Cough) Qty: 8.5 1RF fluoxetine [Prozac] 10 mg capsule 10 mg PO DAILY aspirin 81 mg Tablet,Chewable 81 mg PO DAILY@0800 Qty: 30 11RF ondansetron [ondansetron] 4 MG tablet 8 mg PO Q8H PRN PRN (Reason: Nausea) Qty: 16 0RF lorazepam [Ativan] 1 mg tablet 1 mg PO BID PRN (Reason: anxiety) Qty: 10 0RF lisinopril 2.5 mg tablet 1 tab PO DAILY [id number]-jqvrvlhrqehpc-dqbn [Fioricet] 50-300-40 mg capsule 1 cap PO TID PRN (Reason: migraine headache) Qty: 20 0RF carvedilol 25 mg tablet 25 mg PO BID Qty: 180 3RF furosemide 40 mg tablet 40 mg PO DAILY Qty: 90 3RF Primary Care Provider: AROLDO DESIR Referrals: AROLDO DESIR [Other]
[2021-12-21] MEDS: proMETHazine 25 MG/ML Syringe 12.5 MG IM (14:19)
[2021-12-21] MEDS: Acetaminophen 500 MG Tablet 1000 MG PO (14:59)
[2021-12-21 15:00] VITALS: BP 140/95; PULSE 71; RESP 12; O2SAT 97
[2021-12-21 15:16] LABS: Reflex Troponin-HS? (from REC) Y
[2021-12-21 15:32] VITALS: BP 129/82; PULSE 88; RESP 18; O2SAT 99
== END 2021-12-21 15:33 | disposition home or self-care (01) ==
PROVIDERS: Emergency Provider Student in an Organized Health Care Education/Training Program; Visit Provider Student in an Organized Health Care Education/Training Program
DX: R07.89 Other chest pain (principal); J44.9 Chronic obstructive pulmonary disease, unspecified; I11.0 Hypertensive heart disease with heart failure; I42.8 Other cardiomyopathies; I50.22 Chronic systolic (congestive) heart failure; R11.2 Nausea with vomiting, unspecified; E78.5 Hyperlipidemia, unspecified; I25.2 Old myocardial infarction; E66.9 Obesity, unspecified; F17.200 Nicotine dependence, unspecified, uncomplicated; Z68.29 Body mass index [BMI] 29.0-29.9, adult; Z90.49 Acquired absence of other specified parts of digestive tract; Z79.82 Long term (current) use of aspirin; Z79.899 Other long term (current) drug therapy
CPT/HCPCS: 71045; 80048; 80076; 83690; 84484; 85025; 93005; 96372; 99285; A4216

== ENCOUNTER 2021-12-24 15:46 | Emergency (ER) | payer MEDICAID, SELFPAY ==
[2021-12-24 15:47] VITALS: BP 140/104; PULSE 78; RESP 15; TEMP 36.5; O2SAT 93; BMI 28.0
--- NOTE | 2021-12-24 16:11 | EKG12_ITS ---
Test Reason : CP Blood Pressure : / mmHG Vent. Rate : 078 BPM Atrial Rate : 078 BPM P-R Int : 168 ms QRS Dur : 092 ms QT Int : 408 ms P-R-T Axes : 076 073 085 degrees QTc Int : 465 ms Normal sinus rhythm ST & T wave abnormality, consider anterolateral ischemia Abnormal ECG Confirmed by CARSON ELDER, TALI ([id number]), editor producer BRENNAN HARVEY ([id number]) on 12/26/2021 6:19:48 AM Referred By: CHIO Confirmed By:TALI BYRD MD
--- NOTE | 2021-12-24 16:12 | RAD_ITS ---
STUDY: X-RAY CHEST REASON FOR EXAM: Female, 56 years old. Chest pain TECHNIQUE: 2 frontal images of the chest were obtained. COMPARISON: 12/21/2021 FINDINGS: The lungs remain hyperinflated. There is no new focal consolidation. There is a stable calcified nodule within the right lower lung with a granuloma. Normal size heart. Normal mediastinum and dinesh. Normal visualized pulmonary arteries. Normal visualized aortic arch and descending thoracic aorta. Normal visualized thoracic spine. Normal visualized ribs, clavicles, and shoulders. There is no demonstrated abnormality of the visualized soft tissue structures of the upper abdomen. RAD/Chest 1 View (Portable) IMPRESSION: No acute cardiopulmonary process. Electronically Signed: Shellie Oliva MD at 16:23 EDT ,
--- NOTE | 2021-12-24 16:12 | ED.VIS.CHEST ---
HPI History of Present Illness Chief Complaint: Chest Pain Informant: patient Narrative Narrative: Patient arrives by EMS with chest pain. She states she gets chest pain about every 2 days. She had a heart cath a little over a year ago. This showed nonobstructive coronary artery disease. But she has a very low ejection fraction somewhere 25 to 30%. It sounds like she is supposed to have an ICD placed very soon. She sees Dr. Green. She thinks stress brings on her chest pain. Sometimes she knows they are just panic attacks. But she states this 1 did not feel like that. She normally gets sharp pain in the left lower chest. She states she had some of that today but she also had just a heaviness like a weight sitting on her chest across the whole anterior surface. It is better after aspirin and nitro by the squad. She did feel short of breath. She felt a little nauseated but did not vomit. She did not have diaphoresis. She does have high blood pressure and is a smoker. Her father had MIs but starting in his 60s. No history of diabetes. No known cholesterol. Never had DVT or PE. She had evaluation for this about a month ago. [facility] Medical History Acute low back pain Acute respiratory failure with hypoxia and hypercapnia (09/15/20) Cervical cancer Colon cancer screening Constipation COPD (chronic obstructive pulmonary disease) COPD with asthma Depression Essential (primary) hypertension Generalized anxiety disorder HFrEF (heart failure with reduced ejection fraction) (09/15/20) History of cervical cancer History of non-ST elevation myocardial infarction (NSTEMI) (09/15/20) History of pancreatitis HLD (hyperlipidemia) Left bundle branch block (LBBB) Major depressive disorder, recurrent, moderate Muscle spasm Nicotine dependence Non-ischemic cardiomyopathy Obesity Panic disorder Preventative health care Tobacco abuse counseling Home Medications aspirin 81 mg chewable tablet 81 mg PO DAILY@0800 #30 tabs 09/19/20 [Rx Last Taken Unknown] albuterol sulfate 90 mcg/actuation aerosol inhaler 2 puff inhalation Q4H PRN PRN Cough #8.5 grams 10/04/20 [Rx Last Taken Unknown] ymqbvroubt-atxqhvxkgnyyu-xajwhbod 50 mg-300 mg-40 mg capsule (Fioricet) 1 cap PO TID PRN migraine headache #20 caps 01/06/21 [Rx Last Taken Unknown] carvedilol 25 mg tablet 25 mg PO BID #180 tabs 08/17/21 [Rx Last Taken Unknown] ondansetron 4 mg disintegrating tablet 8 mg PO Q8H PRN PRN Nausea #16 tabs 08/20/21 [Rx Last Taken Unknown] furosemide 40 mg tablet 40 mg PO DAILY #90 tabs 10/16/21 [Rx Last Taken Unknown] fluoxetine 10 mg capsule (Prozac) 10 mg PO DAILY 10/25/21 [History Last Taken Unknown] lorazepam 1 mg tablet (Ativan) 1 mg PO BID PRN anxiety #10 tabs 11/13/21 [Rx Last Taken Unknown] lisinopril 2.5 mg tablet 1 tab PO DAILY 11/20/21 [History Last Taken Unknown] metoclopramide HCl 10 mg tablet (Reglan) 10 mg PO Q6H PRN nausea and vomiting #14 tabs 12/21/21 [Rx Last Taken Unknown] sucralfate 1 gram tablet 1 g PO BID 12/24/21 [History Last Taken Unknown] Allergy/AdvReac Type Severity Reaction Status Date / Time ketorolac [From Toradol] Allergy Shortness Verified 12/24/21 15:47 of breath naproxen [From Naprosyn] Allergy Shortness Verified 12/24/21 15:47 of breath ubrogepant [From Ubrelvy] AdvReac Sick Verified 12/24/21 15:47 Feeling Family History Mother Heart disease Hypertension Diabetes Father Heart disease Other Anxiety Asthma Surgical History H/O: hysterectomy History of cholecystectomy History of left heart catheterization (09/19/20) Social History household members: spouse Smoking Status: Light Smoker (<10/day) alcohol intake: never substance use type: does not use what type of physical activity do you participate in: none ROS ROS ED Constitutional Constitutional ED: Denies chills or fever(s) Eyes Eyes: Denies blurry vision ENT ENT ED: Denies rhinorrhea or sore throat Cardiovascular Cardiovascular: Reports as per HPI Respiratory/Chest Respiratory/Chest: Reports dyspnea; Denies cough Gastrointestinal Gastrointestinal: Reports nausea; Denies abdominal pain or vomiting Musculoskeletal Musculoskeletal: Denies back pain or neck pain Integumentary Denies rash Neurologic Neurologic: Denies headache(s), paresthesias or weakness Psychiatric Psychiatric: Reports anxiety Endocrine Endocrinology: Denies polydipsia or polyuria Hematologic/Lymphatic Hematologic/Lymphatic: Denies lymphadenopathy Allergic/Immunologic Allergic/Immunologic ED: Denies urticaria EXAM Physical Exam Const Vital Signs: 12/24/21 15:47 12/24/21 15:50 12/24/21 16:00 Temperature 97.7 F L Temperature Source Oral Pulse Rate 78 Respiratory Rate 15 Respiratory Effort Normal Respiratory Pattern Normal Blood Pressure 140/104 H Blood Pressure Mean 116 Pulse Ox 93 Oxygen Delivery Method Room Air Room Air 12/24/21 17:15 12/24/21 19:00 Temperature Temperature Source Pulse Rate 76 75 Respiratory Rate 11 L 18 Respiratory Effort Respiratory Pattern Blood Pressure 136/87 H 139/86 H Blood Pressure Mean 103 103 Pulse Ox 95 95 Oxygen Delivery Method Room Air Room Air Positive well nourished and cachectic Constitutional Narrative: Patient is in no acute distress. But she does intermittently cry during exam. She states she thinks this is related to stress but not to pain that is better now General Appearance ED: cachectic Nutritional Appearance: cachectic HEENT Reports moist mucous membranes Eyes General Eye ED: Negative for scleral icterus Neck no JVD Chest Wall inspection of chest normal Chest Narrative: Chest wall has some mild tenderness but she states has not really the same as what she was feeling. Resp normal respiratory effort Effort and Inspection: Negative for respiratory distress Auscultation: Negative for rales, rhonchi or wheezes Cardio regular rate and regular rhythm GI normal to inspection, nondistended, normoactive bowel sounds, soft to palpation and non-tender Back/Spine no CVA tenderness Extremity normal to inspection Extremity Narrative: No edema, cords or asymmetry. Neuro oriented x3 Psych Mood & Affect: tearful Skin no rashes or lesions noted MDM MDM MDM Narrative Medical decision making narrative: Patient's CBC shows no acute process. BNP is normal. Glucose is a little bit up. Electrolytes show low potassium. Troponin is negative on 2 checks. X-ray is normal. I talk with the patient. Her blood pressure is down. She feels better. She thinks this is all in her head. She states she gets very anxious. She was on Prozac started recently but is not helping. She states Ativan helps but she understands why she cannot be on it long-term. She is not suicidal. She would like to go home. I think this is reasonable. She has good follow-up. I will give her an Ativan here. Lab Data Attestation: I reviewed the patient's lab results. Labs: Laboratory Results - last 24 hr 12/24/21 12/24/21 12/24/21 16:00 16:00 16:00 WBC 7.5 RBC 4.10 L Hgb 13.5 Hct 38.7 MCV 94.4 MCH 32.9 H MCHC 34.9 RDW Std Deviation 44.2 H RDW Coeff of Tony 12.7 Plt Count 264 MPV 11.1 Immature Gran % (Auto) 0.100 Neut % (Auto) 52.0 Lymph % (Auto) 35.4 [place] % (Auto) 11.1 H Eos % (Auto) 0.7 Baso % (Auto) 0.7 Absolute Neuts (auto) 3.9 Absolute Lymphs (auto) 2.64 Nucleated RBC % 0 Sodium 139 Potassium 2.9 L Chloride 105 Carbon Dioxide 27.0 Anion Gap 7 BUN 12 Creatinine 0.88 Estim Creat Clear Calc 67.62 Est GFR (MDRD) Af Amer 86 Est GFR (MDRD) Non-Af 71 BUN/Creatinine Ratio 13.7 Glucose 154 H Calcium 9.1 Troponin I High Sens 10 B-Natriuretic Peptide 35.3 12/24/21 18:20 WBC RBC Hgb Hct MCV MCH MCHC RDW Std Deviation RDW Coeff of Tony Plt Count MPV Immature Gran % (Auto) Neut % (Auto) Lymph % (Auto) [place] % (Auto) Eos % (Auto) Baso % (Auto) Absolute Neuts (auto) Absolute Lymphs (auto) Nucleated RBC % Sodium Potassium Chloride Carbon Dioxide Anion Gap BUN Creatinine Estim Creat Clear Calc Est GFR (MDRD) Af Amer Est GFR (MDRD) Non-Af BUN/Creatinine Ratio Glucose Calcium Troponin I High Sens 11 B-Natriuretic Peptide Radiography Diagnostic Testing: Clinical Impression(s) from Imaging Studies Chest X-Ray 12/24/21 16:12 IMPRESSION: No acute cardiopulmonary process. Electronically Signed: Shellie Oliva MD at 16:23 EDT , EKG Initial EKG: Comments: EKG done for chest pain read by me shows normal sinus rhythm with overall rate of 78. No ventricular ectopy is noted. Patient normally has a left bundle branch block but is not showing on today's EKG. She does have some diffuse ST depression but no ST elevation. I pulled up multiple old EKGs and she has had this ST depression but is normally with a left bundle branch block. This does look to be a slightly different pattern than she normally has but she is also not in her bundle branch block. She states nitro by EMS did get rid of her symptoms Discharge Plan Triage Chief Complaint: Chest Pain ED Provider: Vance Peraza Dx/Rx/DC Orders Clinical Impression: Chest pain, Anxiety Instructions: ED Anxiety Reaction, ED Chest Pain, Uncertain Cause Prescriptions: No Action albuterol sulfate 90 mcg/actuation HFA aerosol inhaler 2 puff INHALATION Q4H PRN PRN (Reason: Cough) Qty: 8.5 1RF fluoxetine [Prozac] 10 mg capsule 10 mg PO DAILY aspirin 81 mg Tablet,Chewable 81 mg PO DAILY@0800 Qty: 30 11RF ondansetron [ondansetron] 4 MG tablet 8 mg PO Q8H PRN PRN (Reason: Nausea) Qty: 16 0RF lorazepam [Ativan] 1 mg tablet 1 mg PO BID PRN (Reason: anxiety) Qty: 10 0RF lisinopril 2.5 mg tablet 1 tab PO DAILY metoclopramide HCl [Reglan] 10 mg tablet 10 mg PO Q6H PRN (Reason: nausea and vomiting) Qty: 14 0RF sucralfate 1 gram tablet 1 g PO BID ezqybwfoyn-guwzpcouwbnwv-jbuu [Fioricet] 50-300-40 mg capsule 1 cap PO TID PRN (Reason: migraine headache) Qty: 20 0RF carvedilol 25 mg tablet 25 mg PO BID Qty: 180 3RF furosemide 40 mg tablet 40 mg PO DAILY Qty: 90 3RF Primary Care Provider: Care Physician,No Primary Referrals: Alfonso Green MD [Med Staff - Active Staff] - Keep Rachel appointment Care Physician,No Primary [Primary Care Provider] - Disposition Disposition: Home, Self Care
[2021-12-24 16:20] LABS: Absolute Lymphocyte Count 2.64 X10^3/uL (0.83-4.51); Absolute Neutrophil Count 3.9 X10^3/uL (2.0-7.7); Basophil# 0.05 X10^3/uL; Basophil% 0.7 % (0-1); Eosinophil# 0.05 X10^3/uL; Eosinophils% 0.7 % (0-5); Hematocrit 38.7 % (37-47); Hemoglobin 13.5 g/dL (12.0-15.0); Lymphocyte # 2.64 X10^3/ul (0.83-4.51); Lymphocyte % 35.4 % (19-41); Mean Corp Hgb Conc 34.9 g/dL (32-36); Mean Corpuscular Hgb 32.9 pg (27.0-32.0); Mean Corpuscular Volume 94.4 fL (81-99); Mean Platelet Vol. 11.1 fl (6.2-12.0); Monocyte# 0.83 X10^3/uL; Monocyte% 11.1 % (0-10); NRBC Flagged by Analyzer 0 % (0-5); Neutrophil # 3.87 X10^3/uL (2.7-7.7); Platelet Count 264 K/mm3 (150-450); RBC Distribution Width CV 12.7 % (11.6-14.6); RBC Distribution Width SD 44.2 fl (35.1-43.9); White Blood Count 7.5 K/mm3 (4.4-11.0)
[2021-12-24 16:40] LABS: Anion Gap 7 (5-15); BUN 12 mg/dL (7-18); BUN/Creat Ratio 13.7 RATIO (10-20); Calcium,Total 9.1 mg/dL (8.5-10.1); Chloride 105 mmol/L (98-107); Creatinine, Serum 0.88 mg/dL (0.55-1.02); EST Glomerular Filtration Rate 71 mL/min (>60); Est Glom Filt Rate - Afr Amer 86 mL/min (>60); Estimated Creatinine Clearance 67.62 ml/min; Glucose 154 mg/dL (74-106); Potassium 2.9 mmol/L (3.5-5.1); Sodium Level 139 mmol/L (136-145); Troponin-I HS (w/2H Reflex) 10 pg/mL (3.0-54.0)
[2021-12-24 16:54] LABS: BNP,B-Type NATRIURETIC PEPTIDE 35.3 pg/mL (0-100)
[2021-12-24 17:15] VITALS: BP 136/87; PULSE 76; RESP 11; O2SAT 95
[2021-12-24] MEDS: Potassium Chloride Oral Tablet 20 MEQ 40 MEQ PO (17:19)
[2021-12-24 18:16] LABS: Reflex Troponin-HS? (from REC) Y
[2021-12-24 19:00] VITALS: BP 139/86; PULSE 75; RESP 18; O2SAT 95
[2021-12-24 19:17] LABS: Troponin-I HS 11 pg/mL (3.0-54.0)
[2021-12-24] MEDS: LORazepam 2 MG/ML Syringe 1 MG IV (19:54)
[2021-12-24 20:02] VITALS: PULSE 80; RESP 18; O2SAT 94
== END 2021-12-24 20:08 | disposition home or self-care (01) ==
PROVIDERS: Emergency Provider Emergency Medicine; Visit Provider Emergency Medicine
DX: R07.9 Chest pain, unspecified (principal); J44.9 Chronic obstructive pulmonary disease, unspecified; I11.0 Hypertensive heart disease with heart failure; I42.8 Other cardiomyopathies; I50.22 Chronic systolic (congestive) heart failure; I25.10 Atherosclerotic heart disease of native coronary artery without angina pectoris; I25.2 Old myocardial infarction; E78.5 Hyperlipidemia, unspecified; F41.1 Generalized anxiety disorder; F17.200 Nicotine dependence, unspecified, uncomplicated; E66.9 Obesity, unspecified; Z68.28 Body mass index [BMI] 28.0-28.9, adult; Z79.82 Long term (current) use of aspirin; Z79.899 Other long term (current) drug therapy
CPT/HCPCS: 71045; 80048; 83880; 84484; 85025; 93005; 96374; 99285; A4216

== ENCOUNTER → 2022-01-15 | Outpatient (CLI) | payer MEDICAID, SELFPAY ==
--- NOTE | 2022-01-15 10:56 | ECHOL_ITS ---
Reason For Study: Cardiomyopathy Procedure This was a limited 2D transthoracic echocardiogram. Exam performed in department. Left Ventricle Normal LV size. The estimated ejection fraction is 35 %. There is moderate global hypokinesis of the left ventricle. Right Ventricle Normal RV size. Normal systolic function. Atria Normal left atrium. Normal right atrium. Mitral Valve Normal mitral valve. Tricuspid Valve Normal tricuspid valve. Aortic Valve Normal aortic valve. Trisinus/trileaflet aortic valve. Pulmonic Valve Normal pulmonic valve. Great Vessels Normal aortic root. Pericardium/Pleural No pericardial effusion. MMode/2D Measurements & Calculations LVIDd: 3.9 cm IVSd: 0.97 cm Ao root diam: 2.9 cm LVIDs: 2.7 cm LVPWd: 1.1 cm RVDd: 2.5 cm FS: 31.5 % LAV(MOD-sp4): 10.1 ml LVAd ap4: 25.8 cm2 LVAd ap2: 24.4 cm2 LVLd ap4: 7.6 cm LVLd ap2: 7.5 cm EDV(MOD-sp4): 73.2 ml EDV(MOD-sp2): 65.1 ml EDV(sp4-el): 74.0 ml EDV(sp2-el): 67.6 ml LVAs ap4: 17.8 cm2 LVAs ap2: 16.3 cm2 LVLs ap4: 7.0 cm LVLs ap2: 6.7 cm ESV(MOD-sp4): 39.7 ml ESV(MOD-sp2): 34.6 ml ESV(sp4-el): 38.4 ml ESV(sp2-el): 33.7 ml EF(MOD-sp4): 45.9 % EF(MOD-sp2): 46.8 % EF(sp4-el): 48.1 % SV(MOD-sp4): 33.6 ml SV(MOD-sp2): 30.5 ml SV(sp4-el): 35.6 ml LA dimension(2D): 2.4 cm LA A4 area: 6.7 cm2 RA A4 area: 7.7 cm2 ECHO/Echo, Limited Study Interpretation Summary Normal LV size. The estimated ejection fraction is 35 %. There is moderate global hypokinesis of the left ventricle. Compared to previous study, the left ventricular systolic function has improved .. Ordering Physician: Teetee Abbasi Referring Physician: Teetee Abbasi Performed By: Zarina White RDCS
== END | disposition home or self-care (01) ==
LOC: CVS 10:55
PROVIDERS: Referring Provider Nurse Practitioner Gerontology; Visit Provider Nurse Practitioner Gerontology
DX: I42.8 Other cardiomyopathies (principal)
CPT/HCPCS: 93308

== ENCOUNTER → 2022-02-05 | Outpatient (CLI) | payer MEDICAID, SELFPAY ==
[2022-02-05 10:33] LABS: Anion Gap 8 (5-15); BUN 9 mg/dL (7-18); Calcium,Total 8.9 mg/dL (8.5-10.1); Chloride 104 mmol/L (98-107); Creatinine, Serum 0.82 mg/dL (0.55-1.02); EST Glomerular Filtration Rate 77 mL/min (>60); Est Glom Filt Rate - Afr Amer 93 mL/min (>60); Glucose 112 mg/dL (74-106); Potassium 3.8 mmol/L (3.5-5.1); Sodium Level 140 mmol/L (136-145)
== END | disposition home or self-care (01) ==
PROVIDERS: Visit Provider Nurse Practitioner Gerontology
DX: I10 Essential (primary) hypertension (principal)
CPT/HCPCS: 36415; 80048

== ENCOUNTER → 2022-08-23 | Outpatient (CLI) | payer MEDICAID, SELFPAY ==
[2022-08-23 12:32] LABS: Absolute Lymphocyte Count 3.08 X10^3/uL (0.83-4.51); Absolute Neutrophil Count 3.2 X10^3/uL (2.0-7.7); Basophil# 0.05 X10^3/uL; Basophil% 0.7 % (0-1); Eosinophil# 0.07 X10^3/uL; Hematocrit 40.1 % (37-47); Hemoglobin 13.6 g/dL (12.0-15.0); Lymphocyte # 3.08 X10^3/ul (0.83-4.51); Lymphocyte % 44.3 % (19-41); Mean Corp Hgb Conc 33.9 g/dL (32-36); Mean Corpuscular Hgb 32.7 pg (27.0-32.0); Mean Corpuscular Volume 96.4 fL (81-99); Mean Platelet Vol. 10.7 fl (6.2-12.0); Monocyte% 7.2 % (0-10); NRBC Flagged by Analyzer 0 % (0-5); Neutrophil # 3.24 X10^3/uL (2.7-7.7); Neutrophil % 46.5 % (47-70); Platelet Count 304 K/mm3 (150-450); RBC Distribution Width CV 12.5 % (11.6-14.6); RBC Distribution Width SD 44.2 fl (35.1-43.9); Red Blood Count 4.16 M/mm3 (4.2-5.4)
[2022-08-23 12:43] LABS: AST(SGOT) 16 U/L (15-37); Alanine Aminotransfer ALT/SGPT 17 U/L (13-56); Albumin, Serum 3.3 g/dL (3.2-5.0); Alkaline Phosphatase 87 U/L (45-117); Anion Gap 3 (5-15); BUN 11 mg/dL (7-18); BUN/Creat Ratio 14.2 RATIO (10-20); Bilirubin, Direct 0.12 mg/dL (0.00-0.30); Calcium,Total 8.9 mg/dL (8.5-10.1); Chloride 105 mmol/L (98-107); Cholesterol 222 mg/dL (200); Creatinine, Serum 0.77 mg/dL (0.55-1.02); EST Glomerular Filtration Rate 82 mL/min (>60); Est Glom Filt Rate - Afr Amer 100 mL/min (>60); Glucose 120 mg/dL (74-106); High Density Lipoprotein 35 mg/dL; Potassium 3.9 mmol/L (3.5-5.1); Protein, Total 7.3 g/dL (6.4-8.2); Sodium Level 137 mmol/L (136-145); Triglycerides 127 mg/dL; Very Low Density Lipoprotein 25 mg/dL (5-40)
== END | disposition home or self-care (01) ==
PROVIDERS: PCP Physician Assistant; Referring Provider Nurse Practitioner Gerontology; Visit Provider Nurse Practitioner Gerontology
DX: R42 Dizziness and giddiness (principal); R55 Syncope and collapse; E87.6 Hypokalemia; E78.00 Pure hypercholesterolemia, unspecified
CPT/HCPCS: 36415; 80048; 80061; 80076; 85025; 93225; 93226

== ENCOUNTER 2023-04-03 20:23 | Inpatient (IN) | payer MEDICAID, SELFPAY ==
[2023-04-03] VITALS (7 sets, daily range): BP systolic 104–126; BP diastolic 80–93; PULSE 83–90; RESP 16–24; TEMP 36.2; O2SAT 86–94; BMI 25.5
--- NOTE | 2023-04-03 20:44 | EDS_ITS ---
HPI History of Present Illness Chief Complaint: Cough Narrative Narrative: 57-year-old female past medical history of hypertension, coronary artery disease, COPD presents with increasing shortness of breath over the last 1 to 2 days. She states that today it was really bad. She quit smoking a long time ago. She received an aerosolized treatment and 125 mg of Solu-Medrol from EMS which slightly alleviated her symptoms. She does not wear oxygen at home. Her is a smoker still however. She relates history that she has been coughing which is productive of green to yellow sputum, and she has had increased difficulty breathing especially today. No leg swelling. No other symptoms. [facility] Medical History Acute low back pain Acute respiratory failure with hypoxia and hypercapnia (09/15/20) Cervical cancer Colon cancer screening Constipation COPD (chronic obstructive pulmonary disease) COPD with asthma Depression Essential (primary) hypertension Generalized anxiety disorder HFrEF (heart failure with reduced ejection fraction) (09/15/20) History of cervical cancer History of non-ST elevation myocardial infarction (NSTEMI) (09/15/20) History of pancreatitis HLD (hyperlipidemia) Left bundle branch block (LBBB) Major depressive disorder, recurrent, moderate Muscle spasm Nicotine dependence Non-ischemic cardiomyopathy Obesity Panic disorder Preventative health care Tobacco abuse counseling Home Medications aspirin 81 mg chewable tablet 81 mg PO DAILY@0800 #30 tabs 09/19/20 [Rx Last Taken Unknown] albuterol sulfate 90 mcg/actuation aerosol inhaler 2 puff inhalation Q4H PRN PRN Cough #8.5 grams 10/04/20 [Rx Last Taken Unknown] hbfvdnuyhf-jqhxbsbbecypq-jzsqncml 50 mg-300 mg-40 mg capsule (Fioricet) 1 cap PO TID PRN migraine headache #20 caps 01/06/21 [Rx Last Taken Unknown] ondansetron 4 mg disintegrating tablet 8 mg (2 x 4 mg) PO Q8H PRN PRN Nausea #16 tabs 08/20/21 [Rx Last Taken Unknown] fluoxetine 10 mg capsule (Prozac) 40 mg PO DAILY 02/05/22 [History Last Taken Unknown] omeprazole 40 mg capsule,delayed release 40 mg PO DAILY 08/15/22 [History Last Taken Unknown] carvedilol 25 mg tablet 25 mg PO BID #180 tabs 08/24/22 [Rx Last Taken Unknown] furosemide 40 mg tablet 40 mg PO DAILY #90 tabs 08/24/22 [Rx Last Taken Unknown] dapagliflozin propanediol 10 mg tablet (Farxiga) 10 mg PO DAILY #90 tabs 11/15/22 [Rx Last Taken Unknown] sacubitril 49 mg-valsartan 51 mg tablet (Entresto) 1 tab PO BID #180 tabs 11/15/22 [Rx Last Taken Unknown] spironolactone 25 mg tablet 12.5 mg (1/2 x 25 mg) PO DAILY #15 tabs 11/15/22 [Rx Last Taken Unknown] Allergy/AdvReac Type Severity Reaction Status Date / Time ketorolac [From Toradol] Allergy Shortness Verified 04/03/23 20:24 of breath naproxen [From Naprosyn] Allergy Shortness Verified 04/03/23 20:24 of breath ubrogepant [From Ubrelvy] AdvReac Sick Verified 04/03/23 20:24 Feeling Family History (Reviewed 11/15/22 @ 13:08 by Teetee Abbasi [employer], [employer]-C) Mother Heart disease Hypertension Diabetes Father Heart disease Other Anxiety Asthma Surgical History H/O: hysterectomy History of cholecystectomy History of left heart catheterization (09/19/20) Social History household members: spouse Smoking Status: Former smoker alcohol intake: never substance use type: does not use what type of physical activity do you participate in: none ROS ROS ED ROS Narrative Constitutional: No fever, no chills. HEENT: No sore throat. No neck pain. No loss of vision. No rhinorrhea. Cardiovascular: Positive chest tightness/chest pain. No palpitations. No pedal edema. Respiratory: Positive cough, increasing shortness of breath and dyspnea on exertion. Cough productive of yellow to green sputum. Abdominal: No abdominal pain. No nausea. No vomiting. Genitourinary: No dysuria. No hematuria. Musculoskeletal: No myalgias. No arthralgias. Neurologic: No headaches. No dizziness. No lightheadedness. Skin: No rash. No change in color. Psychiatric: No depression. No anxiety. EXAM Physical Exam Narrative Exam Narrative: Afebrile. Vital signs noted. HEENT: Normocephalic. Atraumatic. PERRL, EOMI. Neck soft and supple. No point tenderness or step off. Cardiovascular: Regular rate and rhythm. No murmurs, rubs, or gallops appreciated. Respiratory: Intermittent tachypnea. Decreased breath sounds bilateral bases with occasional expiratory wheeze right greater than left. Gastrointestinal: Abdomen soft, nontender, with normoactive bowel sounds. No rebound or guarding. Neurological: Awake. Alert. Nonfocal, nonlateralizing. Skin: No rash. Normal color. No pallor. Musculoskeletal: No pedal edema. Full range of motion extremities. Const Vital Signs: 04/03/23 20:25 04/03/23 20:28 04/03/23 20:28 Temperature 97.2 F L 97.2 F L Temperature Source Temporal Temporal Pulse Rate 89 89 Respiratory Rate 24 H 24 H Respiratory Effort Short of Breath Respiratory Pattern Blood Pressure 126/89 H 126/89 H Blood Pressure Mean 101 101 Pulse Ox 94 94 Oxygen Delivery Method Room Air Room Air Room Air Oxygen Flow Rate (L/min) 04/03/23 21:42 04/03/23 21:47 04/03/23 21:08 Temperature Temperature Source Pulse Rate 83 90 Respiratory Rate 18 20 H Respiratory Effort Respiratory Pattern Normal Blood Pressure 111/93 H Blood Pressure Mean 99 Pulse Ox 86 92 Oxygen Delivery Method Room Air Nasal Cannula Oxygen Flow Rate (L/min) 2 MDM MDM MDM Narrative Medical decision making narrative: In the differential diagnosis is COPD exacerbation versus pneumonia versus pneumothorax. Comprehensive work-up was pursued. She has already received an aerosol treatment and Solu-Medrol 125 mg per EMS. She will be given a DuoNeb aerosolized treatment and chest x-ray obtained to help rule out pneumothorax and pneumonia. I do feel laboratory work is indicated to make sure she is not anemic as another cause of her shortness of breath. Initially her pulse ox was 94% on room air which she is on low amount of nasal cannula oxygen satting 91 to 92% I reviewed her laboratory work and she has a leukocytosis of 14.7 which I think is nonspecific, hemoglobin 13.8, hematocrit normal at 41.5, platelet count normal at 272. Sodium is normal at 137 with potassium also normal at 3.9, BUN of 10 with creatinine 0.74. Glucose is appropriately elevated at 119 with a normal anion gap of 6. EKG interpreted by myself independently demonstrates normal sinus rhythm at 84 bpm without ectopy or acute ST changes. No STEMI. High-sensitivity troponin is 5. This is greater than a 6-hour troponin as her symptoms have been ongoing since yesterday. Chest x-ray in 1 view interpreted by myself independently shows no pneumonia or pneumothorax. I reviewed the radiology report which confirms my independent interpretation. While her BNP is still pending, I do not feel that she has florid CHF as it is not evidenced on her 1 view chest x-ray. She was taken off her nasal cannula oxygen and had oxygen desaturation to 86% on room air. She does not wear oxygen at home. She has already received an additional DuoNeb aerosolized treatment and 125 mg of Solu-Medrol from EMS. Given her hypoxia at rest, I do feel she needs to be admitted for her COPD exacerbation. I will discuss the patient with Dr. Cruz for admission. Patient is in stable condition.. History & Record Review Discussion w/independent historian: Patient Additional record(s) reviewed:: Prior ED visit and Prior labs Lab Data Attestation: I reviewed the patient's lab results. Labs: Laboratory Results - last 24 hr 04/03/23 21:23 WBC 14.7 H RBC 4.40 Hgb 13.8 Hct 41.5 MCV 94.3 MCH 31.4 MCHC 33.3 RDW Std Deviation 49.3 H RDW Coeff of Tony 14.2 Plt Count 272 MPV 10.4 Immature Gran % (Auto) 0.600 Neut % (Auto) 86.8 H Lymph % (Auto) 8.1 L [place] % (Auto) 4.0 Eos % (Auto) 0.2 Baso % (Auto) 0.3 Absolute Neuts (auto) 12.8 H Absolute Lymphs (auto) 1.20 Nucleated RBC % 0 Sodium 137 Potassium 3.9 Chloride 104 Carbon Dioxide 27.0 Anion Gap 6 BUN 10 Creatinine 0.74 Estim Creat Clear Calc 79.47 Est GFR (MDRD) Af Amer 105 Est GFR (MDRD) Non-Af 86 BUN/Creatinine Ratio 13.6 Glucose 119 H Calcium 8.9 Troponin I High Sens 5 B-Natriuretic Peptide 43.9 Radiography Diagnostic Testing: Clinical Impression(s) from Imaging Studies Chest X-Ray 04/03/23 20:52 IMPRESSION: Normal x-ray examination of the chest. Electronically Signed: Alexis Miramontes MD at 21:14 EST , Discharge Plan Dx/Rx/DC Orders Clinical Impression: Shortness of breath, Hypoxia, COPD exacerbation Disposition Disposition: Acute Care Hospital [facility]
--- NOTE | 2023-04-03 20:52 | RAD_ITS ---
STUDY: X-RAY CHEST REASON FOR EXAM: Female, 57 years old. Shortness of breath TECHNIQUE: Single AP portable view of the chest. COMPARISON: 282 FINDINGS: The lungs are clear and expanded. There is no demonstrated pleural abnormality. Normal size heart. Normal mediastinum and dinesh. Normal visualized pulmonary arteries. Normal visualized aortic arch and descending thoracic aorta. Normal visualized thoracic spine. Normal visualized ribs, clavicles, and shoulders. There is no demonstrated abnormality of the visualized soft tissue structures of the upper abdomen. RAD/Chest 1 View (Portable) IMPRESSION: Normal x-ray examination of the chest. Electronically Signed: Alexis Miramontes MD at 21:14 EST ,
[2023-04-03] MEDS: Ipratropium/Albuterol Sulfate 3 ML AMPUL.NEB INHALATION (21:08)
[2023-04-03 21:31] LABS: Absolute Neutrophil Count 12.8 X10^3/uL (2.0-7.7); Basophil# 0.04 X10^3/uL; Basophil% 0.3 % (0-1); Eosinophil# 0.03 X10^3/uL; Eosinophils% 0.2 % (0-5); Hematocrit 41.5 % (37-47); Hemoglobin 13.8 g/dL (12.0-15.0); Lymphocyte % 8.1 % (19-41); Mean Corp Hgb Conc 33.3 g/dL (32-36); Mean Corpuscular Hgb 31.4 pg (27.0-32.0); Mean Corpuscular Volume 94.3 fL (81-99); Mean Platelet Vol. 10.4 fl (6.2-12.0); Monocyte# 0.59 X10^3/uL; NRBC Flagged by Analyzer 0 % (0-5); Neutrophil # 12.78 X10^3/uL (2.7-7.7); Neutrophil % 86.8 % (47-70); Platelet Count 272 K/mm3 (150-450); RBC Distribution Width CV 14.2 % (11.6-14.6); RBC Distribution Width SD 49.3 fl (35.1-43.9); White Blood Count 14.7 K/mm3 (4.4-11.0)
[2023-04-03 21:51] LABS: Anion Gap 6 (5-15); BUN 10 mg/dL (7-18); BUN/Creat Ratio 13.6 RATIO (10-20); Calcium,Total 8.9 mg/dL (8.5-10.1); Chloride 104 mmol/L (98-107); Creatinine, Serum 0.74 mg/dL (0.55-1.02); EST Glomerular Filtration Rate 86 mL/min (>60); Est Glom Filt Rate - Afr Amer 105 mL/min (>60); Estimated Creatinine Clearance 79.47 ml/min; Glucose 119 mg/dL (74-106); Potassium 3.9 mmol/L (3.5-5.1); Sodium Level 137 mmol/L (136-145); Troponin-I HS 5 pg/mL (3.0-54.0)
[2023-04-03 22:18] LABS: BNP,B-Type NATRIURETIC PEPTIDE 43.9 pg/mL (0-100)
--- NOTE | 2023-04-03 22:28 | PCM.HP.STD ---
[facility] General Date of Service: 04/03/23 Chief Complaint: Cough and SOB. [facility] Narrative TABITHA FISH, is a 57 F with a past medical history of essential hypertension, hyperlipidemia, coronary artery disease; with history of non-ST elevation [place] and [facility] (2020), chronic left bundle branch block on EKG, history of nonischemic cardiomyopathy, history of chronic diastolic CHF; with preserved left ventricular ejection fraction, history of cervical cancer; status post hysterectomy, history of cholecystectomy, migraine headaches; on as needed Fioricet, GERD, depression with anxiety and tobacco abuse; with subsequent COPD who presents to [facility] ER complaining of cough and shortness of breath. Mrs. Fish reports her symptoms began approximately 1 to 2 days prior to admission with dyspnea on exertion that progressed to shortness of breath at rest. She also admits to a cough productive of greenish/yellowish sputum. She has quit smoking but her apparently still smokes in the house. She states she does not yet wear oxygen at home. EMS was then activated and they treated her with 2 nebulizers and 125 mg Solu-Medrol which helped to slightly improve her symptoms. She denies associated fever, chills, nausea, vomiting, chest pain, leg swelling or other significant symptoms at this time. In the ER she was diagnosed with clinical evidence of acute exacerbation of COPD complicated by acute hypoxic respiratory insufficiency in the setting of ongoing secondhand tobacco smoke exposure from her and she was then admitted to the general medical floor for ongoing care for stay that is expected to be greater than 48 hours. [facility] Medical History Acute low back pain Acute respiratory failure with hypoxia and hypercapnia (09/15/20) Cervical cancer Colon cancer screening Constipation COPD (chronic obstructive pulmonary disease) COPD with asthma Depression Essential (primary) hypertension Generalized anxiety disorder HFrEF (heart failure with reduced ejection fraction) (09/15/20) History of cervical cancer History of non-ST elevation myocardial infarction (NSTEMI) (09/15/20) History of pancreatitis HLD (hyperlipidemia) Left bundle branch block (LBBB) Major depressive disorder, recurrent, moderate Muscle spasm Nicotine dependence Non-ischemic cardiomyopathy Obesity Panic disorder Preventative health care Tobacco abuse counseling Home Medications aspirin 81 mg chewable tablet 81 mg PO DAILY@0800 #30 tabs 09/19/20 [Rx Last Taken Unknown] albuterol sulfate 90 mcg/actuation aerosol inhaler 2 puff inhalation Q4H PRN PRN Cough #8.5 grams 10/04/20 [Rx Last Taken Unknown] zwpmrpjqan-txytavatmdzjf-hlztkbhk 50 mg-300 mg-40 mg capsule (Fioricet) 1 cap PO TID PRN migraine headache #20 caps 01/06/21 [Rx Last Taken Unknown] ondansetron 4 mg disintegrating tablet 8 mg (2 x 4 mg) PO Q8H PRN PRN Nausea #16 tabs 08/20/21 [Rx Last Taken Unknown] fluoxetine 10 mg capsule (Prozac) 40 mg PO DAILY 02/05/22 [History Last Taken Unknown] omeprazole 40 mg capsule,delayed release 40 mg PO DAILY 08/15/22 [History Last Taken Unknown] carvedilol 25 mg tablet 25 mg PO BID #180 tabs 08/24/22 [Rx Last Taken Unknown] furosemide 40 mg tablet 40 mg PO DAILY #90 tabs 08/24/22 [Rx Last Taken Unknown] dapagliflozin propanediol 10 mg tablet (Farxiga) 10 mg PO DAILY #90 tabs 11/15/22 [Rx Last Taken Unknown] sacubitril 49 mg-valsartan 51 mg tablet (Entresto) 1 tab PO BID #180 tabs 11/15/22 [Rx Last Taken Unknown] spironolactone 25 mg tablet 12.5 mg (1/2 x 25 mg) PO DAILY #15 tabs 11/15/22 [Rx Last Taken Unknown] Allergy/AdvReac Type Severity Reaction Status Date / Time ketorolac [From Toradol] Allergy Shortness Verified 04/03/23 20:24 of breath naproxen [From Naprosyn] Allergy Shortness Verified 04/03/23 20:24 of breath ubrogepant [From Ubrelvy] AdvReac Sick Verified 04/03/23 20:24 Feeling Family History (Reviewed 11/15/22 @ 13:08 by Teetee Abbasi HYDRAULIC BARKER OPERATOR, HYDRAULIC BARKER OPERATOR-C) Mother Heart disease Hypertension Diabetes Father Heart disease Other Anxiety Asthma Surgical History H/O: hysterectomy History of cholecystectomy History of left heart catheterization (09/19/20) Social History (Reviewed 11/15/22 @ 13:08 by Teetee Abbasi HYDRAULIC BARKER OPERATOR, HYDRAULIC BARKER OPERATOR-C) household members: spouse Smoking Status: Former smoker alcohol intake: never substance use type: does not use what type of physical activity do you participate in: none ROS ROS Narrative Review of systems: General: Denies fever or chills HENT: Denies headache, denies stuffy nose, denies sore throat EYES: Denies changes in vision Resp: Admits to shortness of breath with cough productive of greenish-yellow sputum and wheezing Cardiac: Denies chest pain GI: Denies abdominal pain, denies changes in bowel, had some nausea : Denies changes in urination Extremity: Denies swelling Musculoskeletal: Feels somewhat generally weak and unwell Neuro: Denies any numbness/tingling Heme: Denies any bleeding or bruising Skin: Denies rashes Psychiatric: No complaints voiced Endocrine: No polyuria The rest of the 14 point ROS was negative except for positives in HPI. Vital Signs Vital Signs Vital Signs: 04/03/23 20:25 04/03/23 20:28 04/03/23 20:28 Temperature 97.2 F L 97.2 F L Temperature Source Temporal Temporal Pulse Rate 89 89 Respiratory Rate 24 H 24 H Respiratory Effort Short of Breath Respiratory Pattern Blood Pressure 126/89 H 126/89 H Blood Pressure Mean 101 101 Pulse Ox 94 94 Oxygen Delivery Method Room Air Room Air Room Air Oxygen Flow Rate (L/min) 04/03/23 21:42 04/03/23 21:47 04/03/23 21:08 Temperature Temperature Source Pulse Rate 83 90 Respiratory Rate 18 20 H Respiratory Effort Respiratory Pattern Normal Blood Pressure 111/93 H Blood Pressure Mean 99 Pulse Ox 86 92 Oxygen Delivery Method Room Air Nasal Cannula Oxygen Flow Rate (L/min) 2 Weight Weight: 158 lb 8.198 oz Body Mass Index (BMI) 25.5 Physical Exam Const alert, oriented x3 and average body habitus Constitutional Narrative: Mild shortness of breath noted. General Appearance: cooperative HEENT normocephalic, head/scalp atraumatic, hearing grossly normal bilaterally and moist oral mucous membranes Eyes PERRL and EOMs intact bilaterally Neck no lymphadenopathy and supple Resp Resp Narrative: Decreased breath sounds throughout with scattered rhonchi and wheezing. Auscultation: rhonchi and wheezes Cardio regular rate and regular rhythm GI normal to inspection, nondistended, normoactive bowel sounds, soft to palpation, non-tender and non-distended Extremity normal to inspection, full ROM and no clubbing, cyanosis or edema Skin Skin Narrative: Patient has no evidence of rash at this time. Neuro oriented x3, CN's II-XII intact bilaterally, moves all extremities and no focal motor deficits Sensorium / Orientation: awake, alert, oriented to person, oriented to place and oriented to time Speech: speech normal Motor Exam: strength 5/5 throughout Psych affect normal Results Medical Records Data Attestation: I reviewed the patient's medical records Lab / Micro Data Attestation: I reviewed the patient's lab results. 04/03/23 21:23 04/03/23 21:23 Labs: Laboratory Results - last 24 hr 04/03/23 21:23: WBC 14.7 H, RBC 4.40, Hgb 13.8, Hct 41.5, MCV 94.3, MCH 31.4, MCHC 33.3, RDW Std Deviation 49.3 H, RDW Coeff of Tony 14.2, Plt Count 272, MPV 10.4, Immature Gran % (Auto) 0.600, Neut % (Auto) 86.8 H, Lymph % (Auto) 8.1 L, [place] % (Auto) 4.0, Eos % (Auto) 0.2, Baso % (Auto) 0.3, Absolute Neuts (auto) 12.8 H, Absolute Lymphs (auto) 1.20, Nucleated RBC % 0, Sodium 137, Potassium 3.9, Chloride 104, Carbon Dioxide 27.0, Anion Gap 6, BUN 10, Creatinine 0.74, Estim Creat Clear Calc 79.47, Est GFR (MDRD) Af Amer 105, Est GFR (MDRD) Non-Af 86, BUN/Creatinine Ratio 13.6, Glucose 119 H, Calcium 8.9, Troponin I High Sens 5, B-Natriuretic Peptide 43.9 Micro: Microbiology 04/03/23 21:50 Nasal Secretion SARS-CoV-2 & FLU Antigen (Rapid) - Final Imagaing Radiology Impression Chest X-Ray 04/03/23 20:52 IMPRESSION: Normal x-ray examination of the chest. Electronically Signed: Alexis Miramontes MD at 21:14 EST , Assessment & Plan Assessment/Plan (1) COPD exacerbation: (2) Respiratory insufficiency: PLAN: Plan 1. Acute exacerbation of COPD in the setting of ongoing secondhand tobacco woke exposure from her who still smokes in the house - Admit to general medical floor. Continue IV Solu-Medrol along with scheduled and as needed nebulizers. Also give doxycycline 100 mg IV twice daily. Give Tylenol as needed fever or pain. Finally, her will be asked not to smoke in their house in an effort to prevent serial readmission. 2. Acute hypoxic respiratory insufficiency arising from #1 - Wean supplemental oxygen as tolerated. 3. Essential hypertension - Continue home medications as previous plus give as needed IV hydralazine for systolic blood pressure greater than 160 mmHg. 4. Hyperlipidemia - Resume statin. 5. Coronary artery disease; with history of [place] and left heart cath (2020) with chronic left bundle branch block on EKG - Stable. Continue home regimen. 6. History of nonischemic cardiomyopathy - Stable. 7. History of chronic diastolic CHF; with preserved left ventricular ejection fraction - Stable. Resume current home medications. 8. History of cervical cancer; status post hysterectomy - Noted. 9. History of cholecystectomy - Noted. 10. Migraine headaches; on as needed Fioricet - Continue as needed Fioricet as previous. 11. GERD - Resume PPI. 12. Depression with anxiety - Continue current medical therapy plus give as needed Xanax for breakthrough symptoms. 13. DVT prophylaxis - Lovenox 40 mg subcu daily plus SCDs. Total time: Approximately 55 minutes. Charges/Coding Visit Charges Inpatient E&M: 57061 Init Hosp L2
[2023-04-03] MEDS: Doxycycline 100 MG in Dextrose 5%-Water (250mL Bag) 250 ML 250 MG IV (23:23)
[2023-04-03] MEDS: Acetaminophen 500 MG Tablet 1000 MG PO (23:46)
[2023-04-04] VITALS (13 sets, daily range): BP systolic 81–116; BP diastolic 64–81; PULSE 64–86; RESP 16–20; TEMP 36.4–36.8; O2SAT 89–100; BMI 25.1
[2023-04-04] MEDS: SACUBITRIL/VALSARTAN 49-51 MG TABLET 1 EACH PO ×3 (00:36→22:01)
[2023-04-04] MEDS: Carvedilol 25 MG Tablet PO ×3 (00:36→22:01)
[2023-04-04] MEDS: Morphine 2 MG/ML Syringe IV (02:45)
[2023-04-04] MEDS: Ondansetron ODT 4 MG Tablet 8 MG PO (03:16)
[2023-04-04] MEDS: MethylPREDNISolone 125 MG/2 ML Vial 60 MG IV ×2 (08:01→22:01)
[2023-04-04] MEDS: 0.9% Saline Lock 10 ML Syringe IV ×2 (08:01→12:03)
[2023-04-04] MEDS: Acetaminophen 500 MG Tablet 1000 MG PO (09:21)
[2023-04-04] MEDS: Aspirin 81 MG TAB.CHEW PO (09:22)
[2023-04-04] MEDS: Enoxaparin 40 MG/0.4 ML Syringe SC (10:42)
[2023-04-04] MEDS: Pantoprazole Sodium 40 MG Tablet PO (10:42)
[2023-04-04] MEDS: HYDROcodone Bitartrate/Apap 5/325 Tablet PO ×2 (10:42→19:09)
[2023-04-04] MEDS: Spironolactone 25 MG Tablet 12.5 MG PO (10:48)
[2023-04-04] MEDS: Fluoxetine HCl 40 MG CAPSULE PO (12:01)
[2023-04-04] MEDS: Doxycycline 100 MG in Dextrose 5%-Water (250mL Bag) 250 ML 250 MG IV (12:03)
--- NOTE | 2023-04-04 18:00 | CASEMGMT ---
CIPRIANO STEWART CURBING STONECUTTER CM to room to meet with patient for initial transition planning/care coordination assessment. CIPRIANO STEWART introduced self and role at [facility]. Pt voices understanding and consents to assessment at this time. Pt sitting up in bed in no distress at this time. Pt is A/O at this time and answers all questions appropriately. Care providers, pharmacy, and demographics verified/updated at this time. PCP: Dr Mcpherson Specialists: Dr Green-leave specialist Preferred Pharmacy: [facility], [place] Insurance: [employer] Prescription Benefit: Yes Living Will/HPOA: Pt does not currently have LW/HCPOA and declines info at this time. Pt made aware that she can contact as an out-pt and make appt in the future if she decides she would like to talk with someone about this or would like to utilize [facility] social work for advanced directive completion. LNOK: , Anna. 2 living children Living Arrangements: Lives w/her and in mobile home w/ramp entrance. Pt's mom lives with them. Pt states she and her legally adopted 2 of their grandchildren (ages 11 and 13) and they also live with them. . Pt Independent. Transportation: Pt states she does not drive. drives and pt denies transportation concerns at this time. DME: Denies using any DME and denies needs. No home O2. Discussed home O2 set-up. Pt states to use [employer] if she qualifies for home O2. She does not have a pulse and she states she can afford to buy one. HHC/SNF: No history of either and no needs identified. Pt wishes to return home and states has no concerns with going home at time of discharge. CM to follow for home oxygen needs and any further discharge planning/needs. Pt voices no further concerns/needs at this time. Advised pt to ask for CM if any further questions/concerns/needs arise. Voices understanding. PLAN: Home w/spousal support and discharge plans in place. Follow for possible home O2 Pierre PICKENS RN, CM
--- NOTE | 2023-04-04 18:10 | PCM.PN.HOSP ---
Reason for Visit Reason for Visit: Diagnoses Chronic obstructive pulmonary disease with (acute) exacerbation (04/04/23) Other abnormalities of breathing (04/04/23) Subjective Subjective Patient was seen and examined today, she complains of pleuritic type chest pain when she takes in a deep breath or coughs, I wrote for her to have Vicodin as needed for pain. Patient is currently on 4 L via nasal cannula. Objective Data Objective Data Vital Signs: Vital Signs Temp Pulse Resp BP Pulse Ox O2 Del Method O2 Flow Rate 98 F 82 18 102/71 94 Nasal Cannula 4 04/04/23 16:48 04/04/23 16:48 04/04/23 16:48 04/04/23 16:48 04/04/23 16:48 04/04/23 16:48 04/04/23 16:48 Oxygen Flow Rate (L/min) 4 Oxygen Delivery Method Nasal Cannula Weight: 70.7 kg Body Mass Index (BMI) 25.1 Intake & Output: Intake and Output for Last 24 Hours 04/02/23 04/03/23 04/04/23 23:59 23:59 23:59 Intake Total 520 / 520 Balance 520 / 520 Lab / Micro Data 04/03/23 21:23 04/03/23 21:23 Labs: Laboratory Results - last 24 hr 04/03/23 21:23: WBC 14.7 H, RBC 4.40, Hgb 13.8, Hct 41.5, MCV 94.3, MCH 31.4, MCHC 33.3, RDW Std Deviation 49.3 H, RDW Coeff of Tony 14.2, Plt Count 272, MPV 10.4, Immature Gran % (Auto) 0.600, Neut % (Auto) 86.8 H, Lymph % (Auto) 8.1 L, [place] % (Auto) 4.0, Eos % (Auto) 0.2, Baso % (Auto) 0.3, Absolute Neuts (auto) 12.8 H, Absolute Lymphs (auto) 1.20, Nucleated RBC % 0, Sodium 137, Potassium 3.9, Chloride 104, Carbon Dioxide 27.0, Anion Gap 6, BUN 10, Creatinine 0.74, Estim Creat Clear Calc 79.47, Est GFR (MDRD) Af Amer 105, Est GFR (MDRD) Non-Af 86, BUN/Creatinine Ratio 13.6, Glucose 119 H, Calcium 8.9, Troponin I High Sens 5, B-Natriuretic Peptide 43.9 Micro: Microbiology 04/03/23 21:50 Nasal Secretion SARS-CoV-2 & FLU Antigen (Rapid) - Final Radiography Diagnostic Testing: Radiology Impression Chest X-Ray 04/03/23 20:52 IMPRESSION: Normal x-ray examination of the chest. Electronically Signed: Alexis Miramontes MD at 21:14 EST , Physical Exam Const alert, oriented x3, no apparent distress and average body habitus General Appearance: cooperative, well kempt and well developed Orientation / Consciousness: awake, oriented to person, oriented to place and oriented to time HEENT normocephalic, head/scalp atraumatic and moist oral mucous membranes Eyes PERRL, EOMs intact bilaterally and conjunctivae normal Neck supple, no JVD, thyroid normal and no carotid bruits General: trachea midline Resp normal respiratory effort, no retractions and no use of accessory muscles Resp Narrative: Scattered expiratory wheezes are noted primarily over the right lung ceballos, no rales or rhonchi are noted Auscultation: wheezes scattered wheezes and throughout; Negative for rales or rhonchi Cardio regular rate, regular rhythm, S1 normal heart sound, S2 normal heart sound, no murmurs, no rub and no gallops GI normal to inspection, nondistended, normoactive bowel sounds, soft to palpation, non-tender and non-distended Extremity no clubbing, cyanosis or edema Skin no rashes or lesions noted General Skin Exam: no breakdown Neuro oriented x3, CN's II-XII intact bilaterally, moves all extremities, no focal motor deficits and no sensory deficits noted Sensorium / Orientation: awake and alert Speech: speech normal Psych affect normal Assessment & Plan Assessment/Plan (1) COPD exacerbation: PLAN: Plan 1. Acute exacerbation of COPD-patient will continue IV corticosteroids and aggressive aerosol treatments, I have decided to change her antibiotic coverage to Zithromax #2 hypoxia secondary to #1-pulse ox will be monitored, patient does not wear oxygen at home #3 essential hypertension-I have held the patient's Lasix today due to a low blood pressure, her meds will be reevaluated tomorrow #4 hyperlipidemia-patient is on a statin #5 non-ischemic cardiomyopathy with low ejection fraction, patient's EF on her echocardiogram on 01/15/2022 was 35% Total clinical time spent by myself addressing the patient's medical issues, reviewing all of her data, and collaborating with the patient's care team: 35 minutes Charges/Coding Visit Charges Inpatient E&M: 91066 Subs Hosp L2
[2023-04-05] MEDS: HYDROcodone Bitartrate/Apap 5/325 Tablet PO ×3 (01:09→17:26)
[2023-04-05 03:15] VITALS: BP 103/70; PULSE 69; RESP 18; TEMP 36.6; O2SAT 99
[2023-04-05 07:42] VITALS: BP 104/72; PULSE 72; RESP 18; TEMP 36.6; O2SAT 96
[2023-04-05] MEDS: Aspirin 81 MG TAB.CHEW PO (07:54)
[2023-04-05] MEDS: Spironolactone 25 MG Tablet 12.5 MG PO (09:39)
[2023-04-05] MEDS: Carvedilol 25 MG Tablet PO ×2 (09:39→20:06)
[2023-04-05] MEDS: Furosemide 40 MG Tablet PO (09:40)
[2023-04-05] MEDS: Enoxaparin 40 MG/0.4 ML Syringe SC (09:40)
[2023-04-05] MEDS: Pantoprazole Sodium 40 MG Tablet PO (09:40)
[2023-04-05] MEDS: Fluoxetine HCl 40 MG CAPSULE PO (09:40)
[2023-04-05] MEDS: SACUBITRIL/VALSARTAN 49-51 MG TABLET 1 EACH PO ×2 (09:40→20:06)
[2023-04-05] MEDS: MethylPREDNISolone 125 MG/2 ML Vial 60 MG IV ×2 (09:41→20:06)
[2023-04-05] MEDS: Azithromycin 250 MG Tablet 500 MG PO (09:44)
[2023-04-05] MEDS: 0.9% Saline Lock 10 ML Syringe IV ×2 (09:45→20:07)
--- NOTE | 2023-04-05 10:45 | CASEMGMT ---
CIPRIANO STEWART Assessment: Face to Face with pt for initial transition planning/care coordination assessment. CIPRIANO STEWART introduced self and role at [facility], pt voices understanding and consents to assessment. Pt is A&O x4 and answers all questions appropriately at this time. Pt lying in bed in no distress with oxygen on. Care providers, pharmacy, and demographics verified/updated. Admitting Dx: SOB PCP:Vida Specialists:Norma, cardio Preferred Pharmacy: [facility] Insurance: [facility] Prescription Benefit: yes LNOK: Brandon Meier, Living Arrangements: Pt lives with , 2 grandchildren ages 13 and 11, mother in a mobile home with a ramp to enter. Pt reports she is I in ADL's and denies no concerns at home. Transportation: Pt provides transportation for pt. DME:BP cuff HHC/SNF: Denies hx of Pt states no concerns with going home at time of dc. Discussed Patient Link with patient, she is agreeable to this. TC to [place] in [facility] to see if Patient Link is an option as pt lives in [place], will await returned call. Pt states no further concerns/needs. CM to follow. Advised pt to ask CM if any further question/concerns/needs arise, voices understanding. Pt Goal: Home, agreeable to Patient Link Plan: Home, follow for oxygen, possible Patient Link
[2023-04-05 14:18] VITALS: BP 94/65; PULSE 74; RESP 18; TEMP 36.8; O2SAT 97
--- NOTE | 2023-04-05 14:40 | PCM.PN.HOSP ---
Reason for Visit Reason for Visit: Diagnoses Chronic obstructive pulmonary disease with (acute) exacerbation (04/04/23) Other abnormalities of breathing (04/04/23) Subjective Subjective Patient was seen and examined today, she is now on 2 L of oxygen, she appears comfortable and she is not short of breath. Objective Data Objective Data Vital Signs: Vital Signs Temp Pulse Resp BP Pulse Ox O2 Del Method O2 Flow Rate 98.2 F 74 18 94/65 97 Nasal Cannula 2 04/05/23 14:18 04/05/23 14:18 04/05/23 14:18 04/05/23 14:18 04/05/23 14:18 04/05/23 14:18 04/05/23 14:18 Oxygen Flow Rate (L/min) 2 Oxygen Delivery Method Nasal Cannula Weight: 70.7 kg Body Mass Index (BMI) 25.1 Intake & Output: Intake and Output for Last 24 Hours 04/03/23 04/04/23 04/05/23 23:59 23:59 23:59 Intake Total 520 / 520 Balance 520 / 520 Lab / Micro Data 04/03/23 21:23 04/03/23 21:23 Micro: Microbiology 04/03/23 21:50 Nasal Secretion SARS-CoV-2 & FLU Antigen (Rapid) - Final Physical Exam Const alert, oriented x3, no apparent distress and healthy appearing General Appearance: cooperative, well kempt and well developed Orientation / Consciousness: awake, oriented to person, oriented to place and oriented to time HEENT normocephalic and moist oral mucous membranes Eyes PERRL, EOMs intact bilaterally and conjunctivae normal Neck supple, no JVD, thyroid normal and no carotid bruits General: trachea midline Resp normal respiratory effort, no retractions and no use of accessory muscles Resp Narrative: Breath sounds are diminished bilaterally, there is scattered expiratory wheezes over the right lung Auscultation: Negative for rales, rhonchi or wheezes Cardio regular rate, regular rhythm, S1 normal heart sound, S2 normal heart sound, no murmurs, no rub and no gallops GI normal to inspection, nondistended, normoactive bowel sounds, soft to palpation, non-tender and non-distended Extremity no clubbing, cyanosis or edema Skin no rashes or lesions noted General Skin Exam: no breakdown Neuro oriented x3, CN's II-XII intact bilaterally, moves all extremities, no focal motor deficits and no sensory deficits noted Sensorium / Orientation: awake, alert, oriented to person, oriented to place and oriented to time Speech: speech normal Psych affect normal Assessment & Plan Assessment/Plan (1) COPD exacerbation: PLAN: Plan 1. Acute exacerbation of COPD-patient will continue IV corticosteroids and aggressive aerosol treatments, patient remains on oral Zithromax #2 hypoxia secondary to #1-pulse ox will be monitored, patient does not wear oxygen at home-her oxygen requirement at this time is 2 L via nasal cannula #3 essential hypertension-I have held the patient's Lasix today due to a low blood pressure, her meds will be reevaluated tomorrow #4 hyperlipidemia-patient is on a statin #5 non-ischemic cardiomyopathy with low ejection fraction, patient's EF on her echocardiogram on 01/15/2022 was 35% Total clinical time spent by myself addressing the patient's medical issues, reviewing all of her data, and collaborating with the patient's care team: 35 minutes Charges/Coding Visit Charges Inpatient E&M: 91543 Subs Hosp L2
[2023-04-05 20:21] VITALS: BP 109/78; PULSE 67; RESP 20; TEMP 36.6; O2SAT 96
[2023-04-05 20:36] VITALS: PULSE 72; RESP 18
[2023-04-05] MEDS: Albuterol 2.5 MG/3 ML VIAL.NEB. INHALATION (20:36)
[2023-04-06] MEDS: HYDROcodone Bitartrate/Apap 5/325 Tablet PO ×2 (00:59→07:21)
[2023-04-06 03:23] VITALS: BP 107/77; PULSE 62; RESP 18; TEMP 36.6; O2SAT 98
[2023-04-06] MEDS: Carvedilol 25 MG Tablet PO (07:22)
[2023-04-06] MEDS: Fluoxetine HCl 40 MG CAPSULE PO (07:22)
[2023-04-06] MEDS: Aspirin 81 MG TAB.CHEW PO (07:22)
[2023-04-06] MEDS: SACUBITRIL/VALSARTAN 49-51 MG TABLET 1 EACH PO (07:22)
[2023-04-06] MEDS: Azithromycin 250 MG Tablet 500 MG PO (07:22)
[2023-04-06] MEDS: Furosemide 40 MG Tablet PO (07:23)
[2023-04-06] MEDS: Pantoprazole Sodium 40 MG Tablet PO (07:23)
[2023-04-06] MEDS: Spironolactone 25 MG Tablet 12.5 MG PO (07:23)
[2023-04-06] MEDS: Enoxaparin 40 MG/0.4 ML Syringe SC (07:24)
[2023-04-06 07:30] VITALS: O2SAT 92; O2SAT 96
[2023-04-06 08:16] VITALS: BP 126/79; PULSE 73; RESP 16; TEMP 36.3; O2SAT 96
[2023-04-06] MEDS: 0.9% Saline Lock 10 ML Syringe IV (09:19)
[2023-04-06] MEDS: MethylPREDNISolone 125 MG/2 ML Vial 60 MG IV (09:19)
--- NOTE | 2023-04-06 09:47 | DCINST_ITS ---
Discharge Instructions Diet Discharge Diet: No restrictions Activity Discharge Activity: Return to Normal Activity Weight Bearing Status: Full weight bearing Follow Up Care Test Results: Test results from this visit will be discussed in further detail at your follow- up appointment, if applicable. Discharge Plan Admission Admit Date/Time: 04/04/23 06:18 Primary Reason for Your Visit: COPD exacerbation Attending Provider: Boubacar Coello Primary Care Provider: Gabe Mcpherson Consulting Providers: Kevin Denton Discharge Orders/Prescriptions Prescriptions: New azithromycin 250 mg Tablet 500 mg PO Q24 Qty: 3 0RF Rx Instructions: start on 04/07/23 prednisone 20 mg tablet 20 mg PO UD Qty: 9 0RF Rx Instructions: one twice a day for 3 days, then one daily for three days, then stop Continued albuterol sulfate 90 mcg/actuation HFA aerosol inhaler 2 puff INHALATION Q4H PRN PRN (Reason: Cough) Qty: 8.5 1RF fluoxetine [Prozac] 10 mg capsule 40 mg PO DAILY omeprazole 40 mg capsule,delayed release(DR/EC) 40 mg PO DAILY Entresto 49-51 mg tablet 1 tab PO BID Qty: 180 3RF Farxiga 10 mg tablet 10 mg PO DAILY Qty: 90 3RF spironolactone 25 mg tablet 12.5 mg PO DAILY Qty: 15 6RF aspirin 81 mg Tablet,Chewable 81 mg PO DAILY@0800 Qty: 30 11RF ondansetron 4 MG tablet 8 mg PO Q8H PRN PRN (Reason: Nausea) Qty: 16 0RF lllfpdtfvm-rafxjemrgjycn-rvfu [Fioricet] 50-300-40 mg capsule 1 cap PO TID PRN (Reason: migraine headache) Qty: 20 0RF carvedilol 25 mg tablet 25 mg PO BID Qty: 180 3RF furosemide 40 mg tablet 40 mg PO DAILY Qty: 90 3RF Referrals / Follow Up: Gabe Mcpherson PA [Primary Care Provider] - Disposition Disposition (needs filled in before D/C Order can be placed): Home, Self Care
--- NOTE | 2023-04-06 09:52 | PCM.DC.SUM ---
Providers Date of Admission: 04/04/23 Date of Discharge: 04/06/23 Primary Care Physician: JOANN Panchal Reason For Visit: ACUTE EXACERBATION COPD W ACUTE HYPOXIC RESP INSUF Diagnosis Discharge Diagnosis (1) COPD exacerbation: Status: Chronic Code(s): J44.1 - Chronic obstructive pulmonary disease with (acute) exacerbation Plan 1. Acute exacerbation of COPD-patient will continue IV corticosteroids and aggressive aerosol treatments, patient remains on oral Zithromax #2 hypoxia secondary to #1-pulse ox will be monitored, patient does not wear oxygen at home-her oxygen requirement at this time is 2 L via nasal cannula #3 essential hypertension-I have held the patient's Lasix today due to a low blood pressure, her meds will be reevaluated tomorrow #4 hyperlipidemia-patient is on a statin #5 non-ischemic cardiomyopathy with low ejection fraction, patient's EF on her echocardiogram on 01/15/2022 was 35% Total clinical time spent by myself addressing the patient's medical issues, reviewing all of her data, and collaborating with the patient's care team: 35 minutes Medications at Discharge Home Medications aspirin 81 mg chewable tablet 81 mg PO DAILY@0800 #30 tabs 09/19/20 albuterol sulfate 90 mcg/actuation aerosol inhaler 2 puff inhalation Q4H PRN PRN Cough #8.5 grams 10/04/20 qpscgykikl-yjbfsunelzhkb-idzupkcb 50 mg-300 mg-40 mg capsule (Fioricet) 1 cap PO TID PRN migraine headache #20 caps 01/06/21 ondansetron 4 mg disintegrating tablet 8 mg (2 x 4 mg) PO Q8H PRN PRN Nausea #16 tabs 08/20/21 fluoxetine 10 mg capsule (Prozac) 40 mg PO DAILY 02/05/22 omeprazole 40 mg capsule,delayed release 40 mg PO DAILY 08/15/22 carvedilol 25 mg tablet 25 mg PO BID #180 tabs 08/24/22 furosemide 40 mg tablet 40 mg PO DAILY #90 tabs 08/24/22 dapagliflozin propanediol 10 mg tablet (Farxiga) 10 mg PO DAILY #90 tabs 11/15/22 sacubitril 49 mg-valsartan 51 mg tablet (Entresto) 1 tab PO BID #180 tabs 11/15/22 spironolactone 25 mg tablet 12.5 mg (1/2 x 25 mg) PO DAILY #15 tabs 11/15/22 azithromycin 250 mg tablet 500 mg (2 x 250 mg) PO Q24 #3 tabs 04/06/23 prednisone 20 mg tablet 20 mg PO UD #9 tabs 04/06/23 Hospital Course Operations None Procedures None Summary of Care Provided Minutes Spent on Discharge: 31 Hospital Course: This 57-year-old white female was seen in the emergency room at [facility] with a chief complaint of worsening shortness of breath over the last 1 to 2 days, patient does not use home oxygen. Patient complains of cough productive of green to yellow sputum over the past couple of days. Labs obtained in the emergency room included a CBC which showed elevated white blood cell count 14.7, patient's chemistry profile was unremarkable. Chest x-ray showed no acute abnormalities patient was taken off her nasal cannula oxygen in the emergency room and her pulse ox dropped to 86% on room air. She had been given DuoNeb aerosols and IV Solu-Medrol. Patient was admitted to [place] [id number] for acute exacerbation of COPD, she was placed on oral antibiotics and given IV corticosteroids and aggressive aerosol treatments. Patient's oxygen was able to be weaned off.. On 04/06/2023, patient was seen and examined: On examination she appeared in good health and spirits, she does not appear to be in any distress. Vital signs as documented. Skin warm and dry and without overt rashes. Neck without JVD, thyroid appears normal, trachea is midline, neck is supple. Lungs-breath sounds are distant bilaterally, occasional expiratory wheezes were noted. Heart exam notable for regular rhythm, normal sounds and absence of murmurs, rubs or gallops. Abdomen unremarkable and without evidence of organomegaly, masses, or abdominal aortic enlargement, bowel sounds are present in all 4 quadrants, no abdominal tenderness was noted. Extremities nonedematous, no cyanosis was noted, no clubbing was noted. Neuro: Cranial nerves II through XII are grossly intact, no focal motor deficits were noted, sensation to light touch and pinprick is intact, motor exam 5/5 throughout. Psych: Patient is alert and oriented x3, she does not appear anxious or depressed, she does not appear agitated. On 04/06/2023, patient was seen and examined and felt to be in stable condition for discharge home Weight / BMI Weight Weight: 70.7 kg Body Mass Index (BMI) 25.1 ABG / Lab / Microbiology Data 04/03/23 21:23 04/03/23 21:23 Microbiology: Microbiology 04/03/23 21:50 Nasal Secretion SARS-CoV-2 & FLU Antigen (Rapid) - Final D/C Instructions Discharge Diet: No restrictions Weight Bearing Status: Full weight bearing Meaningful Use Info Meaningful Use Diagnoses (Choose all that apply): None applicable Discharge Plan Admission Admit Date/Time: 04/04/23 06:18 Primary Reason for Your Visit: COPD exacerbation Attending Provider: Boubacar Coello Primary Care Provider: Gabe Mcpherson Consulting Providers: Kevin Denton Discharge Orders/Prescriptions Prescriptions: New azithromycin 250 mg Tablet 500 mg PO Q24 Qty: 3 0RF Rx Instructions: start on 04/07/23 prednisone 20 mg tablet 20 mg PO UD Qty: 9 0RF Rx Instructions: one twice a day for 3 days, then one daily for three days, then stop Continued albuterol sulfate 90 mcg/actuation HFA aerosol inhaler 2 puff INHALATION Q4H PRN PRN (Reason: Cough) Qty: 8.5 1RF fluoxetine [Prozac] 10 mg capsule 40 mg PO DAILY omeprazole 40 mg capsule,delayed release(DR/EC) 40 mg PO DAILY Entresto 49-51 mg tablet 1 tab PO BID Qty: 180 3RF Farxiga 10 mg tablet 10 mg PO DAILY Qty: 90 3RF spironolactone 25 mg tablet 12.5 mg PO DAILY Qty: 15 6RF aspirin 81 mg Tablet,Chewable 81 mg PO DAILY@0800 Qty: 30 11RF ondansetron 4 MG tablet 8 mg PO Q8H PRN PRN (Reason: Nausea) Qty: 16 0RF gafdqdpyfl-jaqrtegwrmfbx-tbyz [Fioricet] 50-300-40 mg capsule 1 cap PO TID PRN (Reason: migraine headache) Qty: 20 0RF carvedilol 25 mg tablet 25 mg PO BID Qty: 180 3RF furosemide 40 mg tablet 40 mg PO DAILY Qty: 90 3RF Referrals / Follow Up: Gabe Mcpherson PA [Primary Care Provider] - Disposition Disposition (needs filled in before D/C Order can be placed): Home, Self Care Charges/Coding Visit Charges Inpatient E&M: 23192 Disch Hosp >30min
--- NOTE | 2023-04-08 09:17 | CASEMGMT ---
Received notification from [facility] that they do go to [place] for Patient Link. Order entered at this time and she is aware.
--- NOTE | 2023-04-09 10:47 | CCN.REFER ---
PATIENT LINK UPDATE - PATIENT IS HESITANT ON AGREEING TO PL DEVICE. SHE WANTS TO TALK W/ AND REQUESTING THIS RN TO CALL BACK IN ONE WEEK.
--- NOTE | 2023-04-15 10:56 | CCN.REFER ---
FOLLOW UP CALL TO PATIENT TO DISCUSS PATIENT LINK/CCN. PATIENT IS DECLINING BOTH SERVICES. EDUCATION PROVIDED AND PHONE NUMBER LEFT WITH PATIENT.
== END 2023-04-06 10:48 | disposition home or self-care (01) | DRG 140 ==
LOC: ED 22:20 → MS3 04-04 07:07
PROVIDERS: Admitting Provider Internal Medicine; Emergency Provider Emergency Medicine; PCP Physician Assistant; Visit Provider Internal Medicine
DX: J44.1 Chronic obstructive pulmonary disease with (acute) exacerbation (principal); F33.1 Major depressive disorder, recurrent, moderate; I11.0 Hypertensive heart disease with heart failure; I42.8 Other cardiomyopathies; I50.32 Chronic diastolic (congestive) heart failure; I25.10 Atherosclerotic heart disease of native coronary artery without angina pectoris; K21.9 Gastro-esophageal reflux disease without esophagitis; E78.5 Hyperlipidemia, unspecified; I25.2 Old myocardial infarction; F41.1 Generalized anxiety disorder; R09.02 Hypoxemia; Z77.22 Contact with and (suspected) exposure to environmental tobacco smoke (acute) (chronic); Z79.82 Long term (current) use of aspirin; Z79.899 Other long term (current) drug therapy; Z87.891 Personal history of nicotine dependence
CPT/HCPCS: 71045; 80048; 83880; 84484; 85025; 87428; 93005; 94640; 97802; 99285; J7050; A4216

== ENCOUNTER → 2023-06-25 | Outpatient (CLI) | payer MEDICAID, SELFPAY ==
--- NOTE | 2023-06-25 12:58 | ECHOLC_ITS ---
Reason For Study: Cardiomyopathy Procedure This was a limited 2D transthoracic echocardiogram. The study was technically difficult. Contrast injection was performed. Exam performed in department. Left Ventricle Normal LV size. The estimated ejection fraction is 50 %. Left ventricular systolic function is lower limits of normal. No regional wall motion abnormalities noted. Right Ventricle Normal RV size. Normal systolic function. Atria Normal left atrium. Normal right atrium. Mitral Valve Normal mitral valve. Tricuspid Valve Normal tricuspid valve. Aortic Valve Trisinus/trileaflet aortic valve. Great Vessels Normal aortic root. The pulmonary artery is normal size. Normal inferior vena cava. Pericardium/Pleural Small pericardial effusion. Medication 20 gauge I.V. with prn adaptor inserted into right arm. Diluted definity 3ml given slow IV push to enhance endocardial definition. MMode/2D Measurements & Calculations LVIDd: 4.4 cm IVSd: 0.97 cm LA dimension: 3.3 cm LVIDs: 3.8 cm LVPWd: 0.77 cm FS: 14.9 % LVAd ap4: 21.9 cm2 SV(MOD-sp4): 25.3 ml SV(sp4-el): 24.8 ml LVLd ap4: 7.4 cm EDV(MOD-sp4): 53.8 ml EDV(sp4-el): 54.4 ml LVAs ap4: 14.4 cm2 LVLs ap4: 5.9 cm ESV(MOD-sp4): 28.5 ml ESV(sp4-el): 29.7 ml EF(MOD-sp4): 47.0 % EF(sp4-el): 45.5 % Doppler Measurements & Calculations Lat Peak E' Andrew: 6.6 cm/sec Med Peak E' Andrew: 6.6 cm/sec ECHO/Echo Limited w/Contrast Interpretation Summary Normal LV size. Left ventricular systolic function is lower limits of normal. The estimated ejection fraction is 50 %. Small pericardial effusion. Structurally normal valves. Ordering Physician: Teetee Abbasi Referring Physician: Teetee Abbasi Performed By: Davion Magallanes RCS
== END | disposition home or self-care (01) ==
LOC: CVS 12:55
PROVIDERS: Referring Provider Nurse Practitioner Gerontology; Visit Provider Nurse Practitioner Gerontology
DX: I42.8 Other cardiomyopathies (principal)
CPT/HCPCS: 93308; Q9957; A4216; C8924

== ENCOUNTER 2025-04-16 01:04 | Emergency (ER) | payer MEDICAID, SELFPAY ==
[2025-04-16] VITALS (8 sets, daily range): BP systolic 113–151; BP diastolic 81–105; PULSE 62–89; RESP 12–18; TEMP 36.6–36.8; O2SAT 96; BMI 21.8
--- NOTE | 2025-04-16 01:11 | EKG12_ITS ---
Test Reason : CP Blood Pressure : */* mmHG Vent. Rate : 80 BPM Atrial Rate : 80 BPM P-R Int : 174 ms QRS Dur : 88 ms QT Int : 398 ms P-R-T Axes : 81 76 82 degrees QTcB Int : 459 ms Normal sinus rhythm Septal infarct , age undetermined Abnormal ECG Reconfirmed by Abril Falcon ([id number]), assistant pastry chef BRENNAN HARVEY ([id number]) on 04/19/2025 10:14:46 AM Also confirmed by Abril Falcon ([id number]), assistant pastry chef BRENNAN HARVEY ([id number]) on 04/20/2025 8:12:38 AM Referred By: DEVON Confirmed By: Abril Falcon
[2025-04-16 01:23] LABS: Hematocrit 40.7 % (37-47); Hemoglobin 13.7 g/dL (12.0-15.0); Immature Granulocytes Count 0.020 X10^3/uL (0.0-0.0); Mean Corp Hgb Conc 33.7 g/dL (32-36); Mean Corpuscular Volume 95.3 fL (81-99); Mean Platelet Vol. 10.6 fl (6.2-12.0); NRBC Flagged by Analyzer 0 % (0-5); Platelet Count 252 K/mm3 (150-450); RBC Distribution Width CV 13.3 % (11.6-14.6); RBC Distribution Width SD 47.0 fl (35.1-43.9); Red Blood Count 4.27 M/mm3 (4.2-5.4); White Blood Count 5.6 K/mm3 (4.4-11.0)
[2025-04-16] MEDS: 0.9% Normal Saline (500mL Bag) 500 ML 999 ML IV (01:23)
[2025-04-16 01:35] LABS: Mucous, Urine 0 SEEN /hpf (<or=2+)
[2025-04-16 01:36] LABS: Color, Urine Yellow (Yellow); Glucose, Dipstick 1000 mg/dl (Normal); Ketone-Dipstick 50 mg/dl (Negative); Leukocyte Esterase-Dipstick Negative /ul (Negative); Nitrite-Dipstick Negative (Negative); Occult Blood-Urine 50 /ul (Negative); Protein-Dipstick 30 mg/dl (Negative); Specific Gravity, Urine 1.020 (1.002-1.030); Urine Bilirubin Dipstick Negative (Negative)
[2025-04-16 01:43] LABS: Red Blood Cells-Urine 0-5 SEEN /hpf (0-5); Squamous Epithelial Cells - UA 0-5 SEEN /hpf (5-10)
[2025-04-16 01:45] LABS: Lipase 24 U/L (13-75); Troponin T High Sensitivity 6 ng/L (<=14)
[2025-04-16 01:47] LABS: AST(SGOT) 17 U/L (<=31); Alanine Aminotransfer ALT/SGPT 8 U/L (<=34); Albumin, Serum 4.2 g/dL (3.5-5.0); Alkaline Phosphatase 74 U/L (35-104); Anion Gap 14 (5-15); BUN 13 mg/dL (4-19); BUN/Creat Ratio 21.0 RATIO (10-20); Calcium,Total 9.0 mg/dL (7.6-11.0); Carbon Dioxide 21.6 mmol/L (21.0-32.0); Chloride 104 mmol/L (98-108); Globulin 2.8 g/dL (2.2-4.2); Glucose 170 mg/dL (70-99); Potassium 3.7 mmol/L (3.3-5.1)
--- NOTE | 2025-04-16 01:47 | CT_ITS ---
PROCEDURE: ABDOMEN/PELVIS W IV CONT ONLY 04/16/2025 REASON FOR EXAM: ABDOMINAL PAIN TECHNIQUE: Procedure Code: [id number] Modality: CT Procedure: ABDOMEN/PELVIS W IV CONT ONLY Coronal and Sagittal reconstruction series were provided. CONTRAST: isovue 370 VOLUME: 100 mL One or more dose reduction techniques were used (e.g., Automated exposure control, adjustment of the mA and/or kV according to patient size, use of iterative reconstruction technique. RADIATION DOSE SUMMARY: CTDI Vol 13.71 mGy DLP :713.64 mGycm COMPARISON: 20-Nov-2021 CT report FINDINGS: Average sized liver showing homogenous parenchymal attenuation and segment 4 subcapsular pseudo-lesion. Prominent biliary tracts, possibly post cholecystectomy biliary dysfunction. Normal appearance of the pancreas with clear surrounding fat planes. Splenic and right pulmonary calcified granulomas. The right adrenal gland and IVC are unremarkable. Thickened left adrenal gland. Vascular atheromatous calcifications. Both kidneys are of average size and showing smooth outline with preserved parenchymal thickness. No renal calculi. No hydronephrosis. Right renal tiny hypodense cortical cyst. Under distension of the urinary bladder showing minimal uniform mural thickening with no obvious masses. No obvious masses related to the hysterectomy stump. Few pelvic phleboli. The appendix appears unremarkable. No right iliac inflammatory changes. Colonic fecal loading. Colonic diverticulosis with diffuse wall thickening of the sigmoid and to less extent descending colon, possibly spastic changes. No diverticulitis. The small bowel loops are unremarkable. The stomach show mural thickening, possibly under distension. No ascites or free air. No obvious pathologically enlarged lymph nodes. Scanned osseous structures show no osseous destruction. Thoracolumbar spondylosis. Scanned lung bases show bilateral pulmonary emphysema. Right lower lung lobe atelectatic bands and patchy opacity, possibly post infectious sequel. CT/Abdomen/Pelvis W IV Cont ONLY IMPRESSION: Colonic diverticulosis with diffuse wall thickening of the sigmoid and to less extent descending colon, possibly spastic changes. No diverticulitis. Otherwise, no acute pelvi-abdominal abnormalities, collections or free air. Reading Location: [place] [id number]
--- OUTSIDE RECORDS SUMMARY | 2025-04-16 01:55 | XMS RPT_ITS | CCD ---
Author Organization [facility] ENGINEERING PSYCHOLOGIST [facility] Care Team Providers Care Outsole Handler Name Role Phone No, Physician Primary Care Provider Shady Nguyen MD, Dany Valiente Primary Care Prov ider Gabe Mcpherson Unavailable Unavailable Unavailable DANY NGUYEN Primary Care Unav ailable VIDA, GABEHugh RAINEY Admitting Unavailable Newbill, Mr. Gabe Rainey Primary Care Unavail able Newbill, Mr. Gabe Rainey Referring Unavail able Newbill, Mr. Brownen Abhishek Attending Unavail able Newbill, Mr. Brownen Abhishek Referring Unavail able Newbill, Mr. Gabe Rainey Attending Unavail able Newbill, Mr. Brownen Abhishek Primary Care Unavail able Newbill, Mr. Brownen Abhishek Referring Unavail able Newbill, Mr. Brownehugh Rainey Attending Unavail able Newbill, Mr. Brownehugh Rainey Primary Care Unavail able Newbill, Mr. Brownen Abhishek Referring Unavail able Newbill, Mr. Brownen Abhishek Primary Care Unavail able Jarrett Mueller Attending Unavailable Newbill, Mr. Brownehugh Rainey Primary Care Unavail able Newbill, Mr. Brownehugh Rainey Referring Unavail able Austin, Dr. Sofia Callahan Attending Unav ailable Newbill, Mr. Brownehugh Rainey Referring Unavail able Newbill, Mr. Brownehugh Rainey Primary Care Unavail able Newbill, Mr. Brownehugh Rainey Attending Unavail able Newbill, Mr. Brownehugh Rainey Primary Care Unavail able Newbill, Mr. Gabe Rainey Referring Unavail able Newbill, Mr. Gabe Rainey Attending Unavail able Jared, Dr. Kev Parham Referring Un available Jared, Dr. Kev Parham Admitting Un available MD HIMANSHU CALDERÓN Attending Unavailable NewGabe turner Primary Care Unavailable Newbilrubin PAGideno, Gabe M Primary Care Provider Gabe Mcpherson PA-C Unavailable [phone] NO, PHYSICIAN Primary Care Unavailable CHEYENNE MARTINEZ Attending Unavailable Mara COMMISSIONED FIRE OFFICER-BALANCE RECESSER, Catrachita B Primary Care Provider Mara COMMISSIONED FIRE OFFICER-BALANCE RECESSER, Catrachita B Primary Care Provider Crow ZULETA-Pavithra PALMA Unavailable Unava ilable Care Physician, No Primary Referring Unava ilable Christiano Magdaleno NP Attending Unavailable Care Physician, No Primary Primary Care Unava ilable Care Physician, No Primary Referring Unava ilable Teetee Abbasi NP Attending Unavailable Care Physician, No Primary Primary Care Unava ilable Care Physician, No Primary Referring Unava ilable Care Physician, No Primary Primary Care Unava ilable Pavithra Maria Attending Unavailable Care Physician, No Primary Primary Care Unava ilable Alfonso Chew Attending Unavailable Care Physician, No Primary Referring Unava ilable Pavithra Maria Attending Unavailable Care Physician, No Primary Primary Care Unava ilable WINDY SANTIZO Attending Unavaila ble MARA, CATRACHITA B Primary Care Unavailable MARA, CATRACHITA B Primary Care Unavailable JONAH CARPIO Attending Unava ilable MARA, CTARACHITA B Primary Care Unavailable CHRISTIANO GALE Attending Unavailable GABE MCPHERSON Primary Care Unavailable Mara COMMISSIONED FIRE OFFICER-BALANCE RECESSER, Catrachita B Primary Care Provider Mara COMMISSIONED FIRE OFFICER-BALANCE RECESSER, Catrachita B Primary Care Provider Crow ZULETA-Pavithra PALMA Unavailable Unava ilable BEBO SEUGN B Referring Unavailable MARA, CATRACHITA B Primary Care Unavailable BEBO SEGUN B Referring Unavailable MARA, CATRACHITA B Primary Care Unavailable BEBO SEGUN B Referring Unavailable MARA, CATRACHITA B Primary Care Unavailable LEB SEGUN B Referring Unavailable MARA, CATRACHITA B Primary Care Unavailable LEB, SEGUN B Referring Unavailable MARA, CATRACHITA B Primary Care Unavailable LEB, SEGUN B Referring Unavailable MARA, CATRACHITA B Primary Care Unavailable MARA, CATRACHITA B Referring Unavailable MARA, CATRACHITA B Primary Care Unavailable LEB, SEGUN B Referring Unavailable MARA, CATRACHITA B Primary Care Unavailable LEB, SEGUN B Admitting Unavailable LEB, SEGUN B Attending Unavailable MARA, CATRACHITA B Primary Care Unavailable MARA, CATRACHITA B Primary Care Unavailable LEB, SEGUN B Referring Unavailable MARA, CATRACHITA B Primary Care Unavailable LEB, SEGUN B Referring Unavailable MARA, CATRACHITA B Primary Care Unavailable LEB, SEGUN B Attending Unavailable MARA, CATRACHITA B Primary Care Unavailable LEB, SEGUN B Attending Unavailable MARA, CATRACHITA B Primary Care Unavailable MARA, CATRACHITA B Attending Unavailable MARA, CATRACHITA B Primary Care Unavailable PAVITHRA MARIA Attending Unavailable MARA, CATRACHITA B Referring Unavailable MARA, CATRACHITA B Primary Care Unavailable MARA, CATRACHITA B Attending Unavailable MARA, CATRACHITA B Primary Care Unavailable BEBO SEGUN B Attending Unavailable MARA, CATRACHITA B Referring Unavailable MARA, CATRACHITA B Primary Care Unavailable LEB, SEGUN B Attending Unavailable MARA, CATRACHITA B Primary Care Unavailable MARA, CATRACHITA B Attending Unavailable MARA, CATRACHITA B Primary Care Unavailable VIVIANAB SEGUN B Attending Unavailable MARA, CATRACHITA B Primary Care Unavailable Allergies Allergy Classification Reported Allergen(s) Allergy Type Date of Onset Reaction(s) Facility Acetaminophen / butalbital / Caffeine (2 sources) Acetaminophen / butalbital / Caffeine Drug Allergy 1 [facility] Aspirin (2 sources) Aspirin Drug Allergy 9 Anaphylaxis [facility] diphenhydrAMINE (2 sources) diphenhydrAMINE Drug [facility] NSAIDs (2 sources) Ketorolac Drug Allergy 9 [facility] (6 sources) diphenhydrAMINE; Translations: [Benadryl] Drug Allergy [facility] Work Phone: (6 sources) Ketorolac; Translations: [Toradol] Drug Allergy [facility] Work Phone: (6 sources) Sulfur; Translations: [Sulfur] Drug Allergy [facility] Work Phone: (14 sources) traMADol; Translations: [Tramadol] Drug Allergy 4 GI Upset [facility] Work Phone: (20 sources) ubrogepant; Translations: [Ubrelvy TABS] Drug Allergy 3 Shortness of breath [facility] Work Phone: (20 sources) Aspirin; Translations: [ASPIRIN] Drug Allergy 9 Anaphylaxis [facility] (20 sources) busPIRone; Translations: [BUSPIRONE] Drug Allergy 9 Other [facility] (20 sources) diphenhydrAMINE; Translations: [DIPHENHYDRAMINE HCL] Drug Allergy 9 Hives, Shortness of breath [facility] (20 sources) Ketorolac; Translations: [KETOROLAC] Drug Allergy 9 Hives [facility] (20 sources) Naproxen; Translations: [NAPROXEN] Drug Allergy 9 Anaphylaxis, Shortness of breath [facility] (20 sources) Sulfonamides (Antibiotic); Translations: [SULFA (SULFONAMIDE ANTIBIOTICS)] Drug Allergy 4 Other [facility] Work Phone: (5 sources) ubrogepant; Translations: [UBROGEPANT] Drug allergy (disorder) 1 [facility] Repository Medications Current Medications Medication Drug Class(es) Dates Sig (Normalized) Sig (Original) acetaminophen 300 mg / butalbital 50 mg / caffeine 40 mg oral capsule (20 sources) Barbiturate, Central Nervous System Stimulant, Methylxanthine Start: 06-17-2024 take 1 capsule by mouth every six hours butalbital-acetam inophen-caff (Fioricet) 50-300-40 mg capsule Indications: Other migraine without status migrainosus, not intractable Take 1 capsule by mouth every 6 hours. 30 capsule 2 06/17/2024 Active Start: 04-23-2024 take 1 capsule by mo [facility] every six hours dsnjdhuumu-gmyivrnhffbau-ldcj (Fioricet) 50-300-40 mg capsule Indications: Other migraine without status migrainosus, not intractable TAKE 1 CAPSULE BY MOUTH EVERY 6 HOURS 30 capsule 2 04/23/2024 Active Start: 06-11-2023 End: 03-18-2024 take 1 capsule by mouth every six hours hsztcuifqh-tyxiliwwoknyg-vmta (Fioricet) 50-300-40 mg capsule Indications: Other migraine without status migrainosus, not intractable Take 1 capsule by mouth every 6 hours. 30 capsule 2 03/18/2024 Active Start: 01-30-2023 take 1 capsule by mo [facility] every six hours rkdklcmqbv-yzomhkmaufofr-bzkt (Fioricet) 50-300-40 mg capsule Indications: Other migraine without status migrainosus, not intractable Take 1 capsule by mouth every 6 hours. 30 capsule 2 01/30/2023 Active Start: 07-20-2021 End: 01-30-2023 elpalpcikx-lrvbvijqkouvx-fki f (Fioricet) 50-300-40 mg capsule Take by mouth every 6 hours. 0 07/20/2021 01/30/2023 Discontinued (Reorder) acetaminophen 325 mg / oxyCODONE hydrochloride 5 mg oral tablet (8 sources) Opioid Agonist Start: 11-26-2024 take 1 tablet by mouth every six hours in the evening for pain oxyCODONE-acetaminophen (Percocet) 5-325 mg tablet Indications: Post-op pain Take 1 tablet by mouth every 6 hours if needed for severe pain (7 - 10) (1 tab every 6 hours) for up to 28 doses. 28 tablet 11/26/2024 4:30 PM EDT 11/26/2024 Active Start: 11-05-2024 End: 11-15-2024 take 1 tablet by mouth every six hours for pain oxyCODONE-acetaminophen (Percocet) 5-325 mg tablet Indications: Impingement syndrome of right shoulder Take 1 tablet by mouth every 6 hours if needed for severe pain (7 - 10) for up to 10 days. 28 tablet 11/05/2024 11/15/2024 Active Start: 10-26-2024 take 1 tablet by savannah every six hours as needed 1 tablet, oral, Every 6 hours PRN, pain severe (7-10), first line, Starting on 10/26/24 at 1101, For 28 doses, If ordered PRN for pain, nurse is permitted to administer this medication for higher pain scores based on patient preference? Yes Start: 10-01-2024 End: 10-11-2024 take 1 tablet by mouth every six hours for pain oxyCODONE-acetaminophen (Percocet) 5-325 mg tablet Indications: Impingement syndrome of right shoulder Take 1 tablet by mouth every 6 hours if needed for severe pain (7 - 10) for up to 10 days. 28 tablet 10/01/2024 10/11/2024 Active [id number] 200 actuat albuterol 0.09 mg/actuat metered dose inhaler (20 sources) beta2-Adrenergic Agonist Start: 10-04-2020 take 2 puff(s) by mouth every four hours as needed for cough albuterol 90 mcg/actuation inhaler INHALE 2 PUFFS BY MOUTH EVERY 4 HOURS NEEDED FOR COUGH 0 10/04/2020 Active albuterol 90 mcg /actuation inhaler Inhale. Active calcium chloride 0.0014 meq/ml / potassium chloride 0.004 meq/ml / sodium chloride 0.103 meq/ml / sodium lactate 0.028 meq/ml injectable solution (2 sources) Start: 10-26-2024 End: 10-27-2024 take 100 mL intravenously every hour 100 mL/hr, intravenous, Continuous, Starting on Sat10/26/24 at 1030, For 1 day, Recovery (only) cyclobenzaprine hydrochloride 10 mg oral tablet (12 sources) Muscle Relaxant Start: 07-08-2024 End: 09-06-2024 cyclobenzaprine (Flexeril) 10 mg tablet Indications: Acute pain of right shoulder Take 1 tablet (10 mg) by mouth as needed at bedtime for muscle spasms. 30 tablet 07/08/2024 Active dapagliflozin 10 mg oral tablet (19 sources) Sodium-Glucose Cotransporter 2 Inhibitor Start: 11-15-2022 take 1 tablet by mouth once daily Farxiga 10 mg Take 1 tablet (10 mg) by mouth once daily. 11/15/2022 Active escitalopram 10 mg oral tablet (2 sources) Serotonin Reuptake Inhibitor Start: 10-31-2020 End: 10-31-2020 take 20 mg by mouth once daily in the evening 20 mg, Oral, Every evening, First dose on Sat10/31/20 at 2100 Start: 10-04-2020 take 2 tablets by mo uth once daily in the evening escitalopram oxalate (LEXAPRO) 10 MG tablet Take 20 mg by mouth every evening . 0 10/04/2020 Active FLUoxetine 40 mg oral capsule (17 sources) Serotonin Reuptake Inhibitor Start: 04-03-2024 End: 07-08-2024 take 1 capsule by mouth once daily FLUoxetine (PROzac) 40 mg capsule Indications: Anxiety and depression TAKE 1 CAPSULE BY MOUTH EVERY DAY 90 capsule 6 04/03/2024 07/08/2024 Discontinued (Therapy completed) Start: 03-18-2024 End: 07-08-2024 take 1 capsule by mouth once daily FLUoxetine (PROzac) 20 mg capsule Indications: Anxiety and depression Take 1 capsule (20 mg) by mouth once daily. 30 capsule 1 03/18/2024 07/08/2024 Discontinued (Therapy completed) Start: 01-24-2022 End: 03-18-2024 take 1 capsule by mouth once daily FLUoxetine (PROzac) 40 mg capsule Indications: Anxiety and depression Take 1 capsule (40 mg) by mouth once daily. 90 capsule 6 01/30/2023 03/18/2024 Discontinued (Therapy completed) Start: 11-22-2021 End: 01-24-2022 take 1 capsule by mouth once daily FLUoxetine HCl - 20 MG Oral Capsule TAKE 1 CAPSULE Daily Quantity: 30 Refills: 11 Ordered: 22-Nov-2021 Gabe Mcpherson PA-C Start : 22-Nov-2021 End : 24-Jan-2022 Complete Start: 07-20-2021 End: 11-22-2021 take 1 tablet by mouth once daily at bedtime FLUoxetine HCl - 10 MG Oral Tablet TAKE 1 TABLET BY MOUTH EVERYDAY AT BEDTIME Quantity: 30 Refills: 3 Ordered: 20-Jul-2021 Gabe Mcpherson PA-C Start : 20-Jul-2021 End : 22-Nov-2021 Complete 60 actuat fluticasone propionate 0.25 mg/actuat / salmeterol 0.05 mg/actuat dry powder inhaler (7 sources) Corticosteroid, beta2-Adrenergic Agonist Start: 01-07-2023 End: 01-30-2023 take 1 puff(s) by inhalation twice daily fluticasone propion-salmeteroL (Advair Diskus) 250-50 mcg/dose diskus inhaler Indications: Chronic obstructive pulmonary disease, unspecified (CMS/HCC) Inhale 1 puff twice daily. 60 each 11 01/07/2023 01/30/2023 Discontinued (Therapy completed) Start: 11-22-2021 take 1 puff(s) by in halation twice daily Fluticasone-Salmeterol 250-50 MCG/ACT Inhalation Aerosol Powder Breath Activated Inhale 1 puff twice daily. Quantity: 1 Refills: 11 Ordered: 22-Nov-2021 Vida BLANCA Gabe Start : 22-Nov-2021 Active hydrocortisone 10 mg/ml topical cream (1 source) Corticosteroid Start: 09-14-2020 End: 10-14-2020 hydrocortisone 1 % cream Apply topically 2 (two) times a day . 15 g 0 09/14/2020 10/14/2020 Active 0.5 ml HYDROmorphone hydrochloride 1 mg/ml prefilled syringe (3 sources) Opioid Agonist Start: 10-26-2024 0.5 mg, intrav enous, Every 5 min PRN, pain severe (7-10), first line, Starting on Sat10/26/24 at 1008, Recovery (only), Max total of 4 mg regardless of dose. hydrOXYzine hydrochloride 25 mg oral tablet (13 sources) Antihistamine Start: 05-20-2023 End: 07-08-2024 hydrOXYzine HCL (Atarax) 25 mg tablet Indications: Anxiety and depression , Psychophysiological insomnia take 1 tab every 6 hours as needed for anxiety/insomnia/nausea 30 tablet 2 03/18/2024 07/08/2024 Discontinued (Therapy completed) Start: 01-30-2023 hydrOXYzine HC L (Atarax) 25 mg tablet Indications: Anxiety and depression , Psychophysiological insomnia take 1 tab every 6 hours as needed for anxiety/insomnia/nausea 30 tablet 2 01/30/2023 Active Start: 07-20-2021 End: 01-30-2023 take 1 tablet by mouth every six hours as needed for anxiety hydrOXYzine HCl - 25 MG Oral Tablet take 1 tab every 6 hours as needed for anxiety/insomnia/nausea Quantity: 30 Refills: 11 Ordered: 11-Jan-2022 Ilana MILIAN, Bri Start : 20-Jul-2021 Active LORazepam 1 mg oral tablet (7 sources) Benzodiazepine Start: 01-30-2023 End: 07-08-2024 take 1 tablet by mouth every eight hours for anxiety LORazepam (Ativan) 1 mg tablet Indications: Anxiety and depression Take 1 tablet (1 mg) by mouth every 8 hours if needed for anxiety for up to 7 days. 21 tablet 01/30/2023 07/08/2024 Discontinued (Therapy completed) Start: 01-24-2022 take 1 tablet by savannah th every twelve hours LORazepam 1 MG Oral Tablet TAKE 1 TABLET Every twelve hours PRN Quantity: 14 Refills: 0 Ordered: 24-Jan-2022 Gabe Mcpherson PA-C Start : 24-Jan-2022 Active for panic attacks F41.0 Start: 10-24-2020 End: 10-31-2020 take 1 mg by mouth once daily as needed for anxiety 1 mg, Oral, Daily PRN, anxiety, Starting on Sat10/31/20 at 0051 2 ml metoclopramide 5 mg/ml injection (1 source) Dopamine-2 Receptor Antagonist Start: 10-26-2024 10 mg, intravenous, Once as needed, nausea/vomiting, second line, Starting on Sat10/26/24 at 1008, For 1 dose, Recovery (only) omeprazole 40 mg delayed release oral capsule (20 sources) Proton Pump Inhibitor Start: 12-25-2021 End: 03-18-2024 take 1 capsule by mouth once daily omeprazole (PriLOSEC) [address] capsule Indications: Gastroesophageal reflux disease, unspecified whether esophagitis present Take 1 capsule (40 mg) by mouth once daily. 90 capsule 3 03/18/2024 Active Start: 11-22-2021 End: 12-25-2021 take 1 capsule by mouth once daily before breakfast Omeprazole 20 MG Oral Capsule Delayed Release TAKE 1 CAPSULE DAILY EVERY MORNING BEFORE BREAKFAST. Quantity: 30 Refills: 11 Ordered: 22-Nov-2021 Gabe Mcpherson PA-C Start : 22-Nov-2021 End : 25-Dec-2021 Complete 2 ml ondansetron 2 mg/ml injection (7 sources) Serotonin-3 Receptor Antagonist Start: 10-26-2024 4 mg, intravenous, O nce as needed, nausea/vomiting, first line, Starting on Sat10/26/24 at 1008, For 1 dose, Recovery (only), When administering via IV Push, administer over 3-5 minutes. Start: 12-20-2021 apply 1 tablet topic ally every eight hours as needed for nausea Ondansetron 4 MG Oral Tablet Disintegrating DISSOLVE ONE TABLET on top OF the tongue EVERY 8 HOURS NEEDED FOR NAUSEA Quantity: 20 Refills: 0 Ordered: 21-Dec-2021 DO Start : 20-Dec-2021 Active Start: 10-30-2020 End: 10-30-2020 ondansetron (ZOFRAN) injecti on 4 mg Start: 09-14-2020 End: 09-14-2020 ondansetron (ZOFRAN-ODT) disintegrating tablet 4 mg oxyCODONE hydrochloride 5 mg oral tablet (1 source) Opioid Agonist Start: 10-26-2024 take 1 tablet by mouth every four hours as needed 5 mg, oral, Every 4 hours PRN, pain moderate (4-6), second line, Starting on Sat10/26/24 at 1008, Recovery (only), When able to take oral medications., If ordered PRN for pain, nurse is permitted to administer this medication for higher pain scores based on patient preference? Yes oxygen (O2) therapy (1 source) Start: 10-26-2024 inhalation, Continuous PRN - O2/gases, other, Starting on Sat10/26/24 at 1008, Recovery (only), Device: Nasal Cannula, Rate in liters per minute: Other, Custom Value: 1-6 LPM, Keep O2 Sat Above: 92% prochlorperazine 10 mg oral tablet (12 sources) Phenothiazine Start: 01-03-2022 End: 10-01-2024 take 1 tablet by mouth every six hours as needed prochlorperazine (Compazine) 10 mg tablet Take 1 tablet (10 mg) by mouth every 6 hours if needed. 01/03/2022 10/01/2024 Discontinued (Med List Cleanup) sacubitril 49 mg / valsartan 51 mg oral tablet (19 sources) Angiotensin 2 Receptor Kathie take 1 tablet by mouth twice daily Entresto 49-51 mg tablet Take 1 tablet by mouth 2 times a day. Active spironolactone 25 mg oral tablet (17 sources) Aldosterone Antagonist Start: 02-26-2024 take 0.5 tablet by mouth once daily spironolactone (Aldactone) 25 mg tablet Take 0.5 tablets (12.5 mg) by mouth once daily. 02/26/2024 Active 10 actuat tiotropium 0.0025 mg/actuat inhalation spray (18 sources) Anticholinergic Start: 03-18-2024 End: 03-18-2025 take 2 puff(s) by inhalation once daily tiotropium (Spiriva Respimat) 2.5 mcg/actuation inhaler Indications: COPD mixed type (Multi) Inhale 2 puffs once daily. 8 g 11 03/18/2024 03/18/2025 Active traMADol hydrochloride 50 mg oral tablet (9 sources) Opioid Agonist Start: 12-18-2024 take 1 tablet by mouth every six hours as needed for pain traMADol (Ultram) 50 mg tablet Indications: Impingement syndrome of right shoulder , Post-op pain Take 1 tablet (50 mg) by mouth every 6 hours if needed for severe pain (7 - 10) ( NEEDED FOR RIGHT SHOULDER PAIN RTC REPAIR) for up to 21 doses. 21 tablet 12/18/2024 10:21 AM EDT 12/18/2024 Active Start: 08-05-2024 End: 08-15-2024 take 1 tablet by mouth every six hours for pain traMADol (Ultram) 50 mg tablet Indications: Acute pain of right shoulder Take 1 tablet (50 mg) by mouth every 6 hours if needed for severe pain (7 - 10) for up to 10 days. 20 tablet 08/05/2024 08/15/2024 Active Start: 01-07-2024 End: 07-08-2024 take 1 tablet by mouth every eight hours as needed traMADol (Ultram) 50 mg tablet Take 1 tablet (50 mg) by mouth every 8 hours if needed for pain. 01/07/2024 07/08/2024 Discontinued (Therapy completed) Start: 09-14-2020 End: 09-14-2020 traMADoL (ULTRAM) tablet 50 mg Completed/Discontinued Medications Medication Drug Class(es) Dates Sig (Normalized) Sig (Original) acetaminophen 325 mg oral tablet (1 source) Start: 10-30-2020 End: 10-30-2020 acetaminophen (TYLENOL) tablet 975 mg aluminum hydroxide 40 mg/ml / magnesium hydroxide 40 mg/ml / simethicone 4 mg/ml oral suspension (1 source) Start: 10-31-2020 End: 10-31-2020 take 30 mL by mouth every four hours as needed for gastroesophageal reflux disease 30 mL, Oral, Every 4 hours PRN, indigestion, heartburn, Starting on Sat10/31/20 at 0056 amoxicillin 875 mg / clavulanate 125 mg oral tablet (4 sources) Penicillin-class Antibacterial Start: 12-28-2021 End: 01-24-2022 take 1 tablet by mouth once daily Amoxicillin-Pot Clavulanate 875-125 MG Oral Tablet TAKE 1 TABLET EVERY 12 HOURS DAILY. Quantity: 20 Refills: 0 Ordered: 28-Dec-2021 Ervin MILIAN Jarrett Start : 28-Dec-2021 End : 24-Jan-2022 Complete aspirin 81 mg delayed release oral tablet (20 sources) Platelet Aggregation Inhibitor, Nonsteroidal Anti-inflammatory Drug Start: 07-20-2021 take 1 tablet by mouth once daily Aspirin EC 81 MG Oral Tablet Delayed Release TAKE 1 TABLET DAILY. Quantity: 30 Refills: 0 Ordered: 20-Jul-2021 Gabe Mcpherson PA-C Start : 20-Jul-2021 Active Start: 10-31-2020 End: 10-31-2020 take 81 mg by mouth once daily 81 mg, Oral, Daily, Fir st dose on Sat10/31/20 at 0900 DO NOT CRUSH OR CHEW. atorvastatin 40 mg oral tablet (1 source) HMG-CoA Reductase Inhibitor Start: 10-31-2020 End: 10-31-2020 take 40 mg by mouth once daily 40 mg, Oral, Nightly, First dose on Sat10/31/20 at 0145 carvedilol 25 mg oral tablet (20 sources) alpha-Adrenergic Kathie, beta-Adrenergic Kathie Start: 07-20-2021 take 2 tablets by mouth once daily Carvedilol 25 MG Oral Tablet Take 2 tablets daily Quantity: 60 Refills: 0 Ordered: 20-Jul-2021 Vida DAVID-Gabe Richmond Start : 20-Jul-2021 Active Start: 10-19-2020 End: 10-31-2020 take 12.5 mg by mouth twice daily at mealtime 12.5 mg, Oral, 2 times daily, First dose on Sat10/31/20 at 0900 Give carvedilol with food to reduce risk of hypotension / dizziness. Separate from admin of VIVI inhibitors by two hours. take 1 tablet by savannah th twice daily carvedilol (Coreg) 25 mg tablet Take 1 tablet (25 mg) by mouth 2 times a day. Active ceFAZolin 2000 mg injection (1 source) Cephalosporin Antibacterial Start: 10-26-2024 End: 10-26-2024 2 g, intravenous, at 100 mL/hr, Administer over 30 Minutes, Once, On Sat10/26/24 at 0630, For 1 dose, Preprocedure, Administer within 60 minutes prior to incision. Duplex bag - activate before hanging., Dosing of this medication varies based on severity of illness. Does this patient have sepsis or concern for sepsis (probable or documented infection plus systemic manifestations of infection)? No, Suspected Indication (Select all that apply): Surgical Prophylaxis, Indications: Surgical Prophylaxis dicyclomine hydrochloride 20 mg oral tablet (4 sources) Anticholinergic Start: 12-28-2021 End: 01-24-2022 take 1 tablet by mouth every six hours as needed Dicyclomine HCl - 20 MG Oral Tablet TAKE 1 TABLET BY MOUTH EVERY 6 HOURS NEEDED Quantity: 90 Refills: 2 Ordered: 28-Dec-2021 Jarrett Mueller DO Start : 28-Dec-2021 End : 24-Jan-2022 Complete famotidine 20 mg oral tablet (11 sources) Histamine-2 Receptor Antagonist Start: 12-25-2021 End: 01-24-2022 take 1 tablet by mouth twice daily Famotidine 20 MG Oral Tablet TAKE 1 TABLET BY MOUTH TWICE DAILY Quantity: 14 Refills: 0 Ordered: 22-Jan-2022 Gabe Mcpherson PA-C Start : 25-Dec-2021 End : 24-Jan-2022 Complete Start: 11-22-2021 take 1 tablet by savannah th once daily Famotidine 20 MG Oral Tablet TAKE 1 TABLET DAILY DIRECTED. Quantity: 30 Refills: 6 Ordered: 22-Jan-2022 Vida PA-CGabe Start : 22-Nov-2021 Active furosemide 40 mg oral tablet (20 sources) Loop Diuretic Start: 07-20-2021 take 1 tablet by mouth once daily Furosemide 40 MG Oral Tablet TAKE 1 TABLET DAILY. Quantity: 30 Refills: 0 Ordered: 20-Jul-2021 Vida BLANCA Gabe Start : 20-Jul-2021 Active Start: 10-17-2020 End: 10-31-2020 take 40 mg by mouth once daily 40 mg, Oral, Daily, Fir st dose on Sat10/31/20 at 0900 1 ml heparin sodium, porcine 5000 unt/ml injection (1 source) Unfractionated Heparin, Anti-coagulant Start: 10-31-2020 End: 10-31-2020 inject 5000 [IU] by subcutaneous injection every eight hours 5,000 Units, Subcutaneous, Every 8 hours scheduled, First dose on Sat10/31/20 at 0145 Notify physician if patient refuses. lisinopril 5 mg oral tablet (2 sources) Angiotensin Converting Enzyme Inhibitor Start: 10-31-2020 End: 10-31-2020 take 2.5 mg by mouth once daily 2.5 mg, Oral, Daily, First dose on Sat10/31/20 at 0900 Start: 10-17-2020 take 1 tablet by savannah once daily lisinopriL (PRINIVIL,ZESTRIL) 2.5 MG tablet Take 2.5 mg by mouth daily . 0 10/17/2020 Active 5 ml midazolam 1 mg/ml injection (1 source) Benzodiazepine Start: 10-26-2024 End: 10-26-2024 2 mg, intravenous, Once, On Sat10/26/24 at 0745, For 1 dose, Preprocedure Start: 10-26-2024 End: 10-26-2024 2 mg, intravenous, Once, On Sat10/26/24 at 0745, For 1 dose, Preprocedure 1 ml morphine sulfate 4 mg/ml cartridge (1 source) Opioid Agonist Start: 10-30-2020 End: 10-30-2020 morphine syringe 4 mg nitroglycerin 0.4 mg sublingual tablet (1 source) Nitrate Vasodilator Start: 10-31-2020 End: 10-31-2020 0.4 mg, Sublingual, Every 5 min PRN, chest pain, Starting on Sat10/31/20 at 0056, For 3 doses For chest pain unrelieved by Nitroglycerin or recurrent chest pain, CALL PHYSICIAN DO NOT CRUSH OR CHEW. sucralfate 100 mg/ml oral suspension (5 sources) Aluminum Complex Start: 01-24-2022 take 10 mL by mouth every six hours Sucralfate 1 GM/10ML Oral Suspension TAKE 10 ML Every 6 hours PRN Quantity: 200 Refills: 1 Ordered: 24-Jan-2022 Vida JOANNElizabethYiGaeb Start : 24-Jan-2022 Active as needed Start: 12-22-2021 End: 01-24-2022 Sucralfate 1 GM Oral Tablet Quantity: 20 Refills: 0 Ordered: 22-Dec-2021 DO Start : 22-Dec-2021 End : 24-Jan-2022 Complete 1 ml triamcinolone acetonide 40 mg/ml injection (2 sources) Corticosteroid Start: 04-03-2024 End: 04-03-2024 triamcinolone acetonide (Kenalog-40) injection 40 mg Start: 04-03-2024 End: 04-03-2024 40 mg, intra-articular, Once PRN Procedure, Starting on Sat04/03/24 at 1549, For 1 dose Problems Active Problems Problem Classification Problem Date Documented Da te Episodic/Chronic Abdominal pain (6 sources) Acute abdominal pain; Translations: [Abdominal pain, left lower quadrant] Onset: 5 Episodic Anxiety disorders (12 sources) Mixed anxiety and depressive disorder; Translations: [Anxiety state, unspecified] Onset: 3 01-30-2023 Chronic Cancer of cervix (6 sources) History of malignant neoplasm of cervix; Translations: [Personal history of malignant neoplasm of cervix uteri] Episodic Chronic obstructive pulmonary disease and bronchiectasis (12 sources) Chronic obstructive lung disease; Translations: [Chronic airway obstruction, not elsewhere classified] Onset: 3 01-30-2023 Chronic Congestive heart failure; nonhypertensive (20 sources) Congestive heart failure; Translations: [Congestive heart failure, unspecified] Onset: 3 01-30-2023 Chronic Coronary atherosclerosis and other heart disease (3 sources) Atherosclerotic heart disease of [place] coronary artery without angina pectoris; Translations: [Coronary atherosclerosis of unspecified type of vessel, [place] or graft] Onset: 3 Chronic Diverticulosis and diverticulitis (5 sources) Diverticulitis of intestine; Translations: [Diverticulitis of colon (without mention of hemorrhage)] Onset: 3 Chronic Esophageal disorders (10 sources) Gastroesophageal reflux disease; Translations: [Esophageal reflux] Onset: 4 01-30-2023 Chronic Essential hypertension (12 sources) Essential hypertension; Translations: [Essential (primary) hypertension] Onset: 1 Chronic Headache; including migraine (10 sources) Migraine; Translations: [Migraine, unspecified, without mention of intractable migraine without mention of status migrainosus] Onset: 4 01-30-2023 Chronic Hemorrhoids (1 source) Bleeding hemorrhoids; Translations: [Unspecified hemorrhoids] Episodic Hypertension with complications and secondary hypertension (11 sources) Hypertensive heart disease with heart failure; Translations: [Hypertensive heart failure] Onset: 3 10-02-2024 Chronic Miscellaneous mental health disorders (4 sources) Psychophysiologic insomnia; Translations: [Psychophysiologic insomnia] Onset: 4 01-30-2023 Chronic Mood disorders (3 sources) Mood disorders; Translations: [Depression, unspecified] Onset: 3 Nonspecific chest pain (5 sources) Chest pain; Translations: [Chest pain, unspecified] Onset: 1 Episodic Other aftercare (1 source) Other intermediate manager (current) drug therapy; Translations: [Other intermediate manager (current) drug therapy] Onset: 3 Episodic Other aftercare (1 source) Surgical follow-up; Translations: [Encounter for follow-up examination after completed treatment for conditions other than malignant neoplasm] 12-18-2024 Episodic Other aftercare (2 sources) Encounter for follow-up examination after completed treatment for conditions other than malignant neoplasm; Translations: [Encounter for follow-up examination after completed treatment for conditions other than malignant neoplasm] Onset: 5 Episodic Other circulatory disease (2 sources) H/O: heart failure; Translations: [Personal history of other diseases of the circulatory system] Onset: 1 Episodic Other connective tissue disease (20 sources) Impingement syndrome of right shoulder region; Translations: [Impingement syndrome of right shoulder] Onset: 5 04-03-2024 Episodic Other gastrointestinal disorders (1 source) Constipation, unspecified; Translations: [Constipation, unspecified] Onset: 3 Episodic Other gastrointestinal disorders (1 source) Drug induced constipation; Translations: [Drug-induced constipation] Onset: 5 Episodic Other lower respiratory disease (1 source) Nodule of lung; Translations: [Solitary pulmonary nodule] Episodic Other nervous system disorders (4 sources) Other chronic pain; Translations: [Other chronic pain] Onset: 4 Chronic Other nervous system disorders (1 source) Personal history of other diseases of the nervous system and sense organs; Translations: [Personal history of dis of the nervous sys and sense organs] Onset: 3 Episodic Other nervous system disorders (3 sources) Postoperative pain ; Translations: [Other acute postprocedural pain] 11-26-2024 Episodic Other nervous system disorders (4 sources) Other acute postprocedural pain; Translations: [Other acute postprocedural pain] Onset: 5 Episodic Other non-traumatic joint disorders (2 sources) Chronic pain of right upper limb; Translations: [Pain in right shoulder] 03-18-2024 Episodic Other non-traumatic joint disorders (2 sources) Stiffness of right shoulder, not elsewhere classified; Translations: [Stiffness of right shoulder, not elsewhere classified] Onset: 5 Episodic Pneumonia (except that caused by tuberculosis or sexually transmitted disease) (1 source) Pneumonia, unspecified organism; Translations: [Pneumonia of right lower lobe due to infectious organism] Onset: 5 Episodic Screening and history of mental health and substance abuse codes (11 sources) H/O: anxiety state; Translations: [Personal history of other mental disorders] Episodic Substance-related disorders (3 sources) Tobacco dependence syndrome; Translations: [Nicotine dependence, unspecified, uncomplicated] Onset: 1 Chronic Unclassified (2 sources) Chronic pain of right upper limb 03-18-2024 Unclassified (1 source) Patient encounter status 03-18-2024 Unclassified (2 sources) Acute pain of right shoulder 07-08-2024 Unclassified (1 source) cough, pain in chest with cough Onset: 4 Unclassified (5 sources) Autogenerated Problem Onset: 5 08-18-2024 Past or Other Problems Problem Classification Problem Date Documented Da te Episodic/Chronic Other connective tissue disease (2 sources) Impingement syndrome of right shoulder; Translations: [Impingement syndrome of right shoulder] Onset: 08-18-2024 Episodic Other non-traumatic joint disorders (20 sources) Pain in right shoulder; Translations: [Pain in joint, shoulder region] Onset: 01-07-2024 Episodic Other screening for suspected conditions (not mental disorders or infectious disease) (9 sources) Patient encounter status; Translations: [Special screening for malignant neoplasms of colon] Onset: 03-18-2024 03-18-2024 Episodic Respiratory failure; insufficiency; arrest (adult) (10 sources) Acute respiratory failure; Translations: [Acute respiratory failure, unspecified whether with hypoxia or hypercapnia] Onset: 10-02-2024 10-02-2024 Episodic Unclassified (19 sources) Onset: 01-30-2023 Resolved: 10-02-2024 01-30-2023 Results Test Name Value Interpretation Reference Range Facility POINT OF CARE ULTRASOUND NO CHARGEon 12-18-2024 POINT OF CARE ULTRASOUND NO CHARGE These images are not reportable by radiology and will not be interpreted by Radiologists. Normal [facility] US Abdomenon 12-18-2024 These images are not reportable by radiology and will not be interpreted by Radiologists. IMAGING POINT OF CARE ULTRASOUND NO CHARGEon 11-26-2024 POINT OF CARE ULTRASOUND NO CHARGE These images are not reportable by radiology and will not be interpreted by Radiologists. Normal [facility] US Abdomenon 11-26-2024 These images are not reportable by radiology and will not be interpreted by Radiologists. IMAGING Basic metabolic 2000 panelon 10-01-2024 Anion gap [Moles/Vol] 13 mmol/L Normal 02-15 [facility] Ambulatory Comment on above: Performed By: #### 2 4321-2 #### EVA KIDD ([id number]) [facility] ([facility]) [address] [place] [address] 13653 Calcium [Mass/Vol] 9.3 mg/dL Normal 8.6-10.3 [facility] Ambulatory Comment on above: Performed By: #### 2 4321-2 #### EVA KIDD ([id number]) [facility] ([facility]) [address] [place] [address] 67459 Chloride [Moles/Vol] 101 mmol/L Normal 98-107 [facility] Ambulatory Comment on above: Performed By: #### 2 4321-2 #### EVA KIDD ([id number]) [facility] ([facility]) [facility] [place] [address] CO2 [Moles/Vol] 27 mmol/L Normal 21-32 [facility] Ambulatory Comment on above: Performed By: #### 2 4321-2 #### EVA KIDD ([id number]) [facility] ([facility]) [address] [place] [address] 14967 Creatinine [Mass/Vol] 0.74 mg/dL Normal 0.50-1.05 [facility] Ambulatory Comment on above: Performed By: #### 2 4321-2 #### EVA KIDD ([id number]) [facility] ([facility]) [address] [place] [address] 52683 GFR/1.73 sq M.predicted MDRD (S/P/Bld) [Vol rate/Area] mL/min/{1.73_m2} Normal >60 [facility] Ambulatory Comment on above: Result Comment: Calc ulations of estimated GFR are performed using the 2020 CKD-EPI Study Refit equation without the race variable for the IDMS-Traceable creatinine methods. https://jasn.asnjournals.org/content/early//ASN.413706 3553 Performed By: #### 2 4321-2 #### EVA KIDD ([id number]) [facility] ([facility]) [address] [place] [address] 57670 Glucose [Mass/Vol] 123 mg/dL High 74-99 [facility] Ambulatory Comment on above: Performed By: #### 2 4321-2 #### EVA KIDD ([id number]) [facility] ([facility]) [address] [place] [address] 75028 Potassium [Moles/Vol] 4.3 mmol/L Normal 3.5-5.3 [facility] Ambulatory Comment on above: Performed By: #### 2 4321-2 #### EVA KIDD ([id number]) [facility] ([facility]) [address] [place] [address] 89227 Sodium [Moles/Vol] 137 mmol/L Normal 136-145 [facility] Ambulatory Comment on above: Performed By: #### 2 4321-2 #### EVA KIDD ([id number]) [facility] ([facility]) [address] [place] [address] 13792 Urea nitrogen [Mass/Vol] 11 mg/dL Normal 6-23 [facility] Ambulatory Comment on above: Performed By: #### 2 4321-2 #### EVA KIDD ([id number]) [facility] ([facility]) [address] [place] [address] CBC panel Auto (Bld)on 10-01 Erythrocyte distribution width (RBC) [Ratio] 14.4 % Normal 11.5-14.5 [facility] Ambulatory Comment on above: Performed By: #### 5 8410-2 #### EVA KIDD ([id number]) [facility] ([facility]) [address] [place] [address] Hematocrit (Bld) [Volume fraction] 43.7 % Normal 36.0-46.0 [facility] Ambulatory Comment on above: Performed By: #### 5 8410-2 #### EVA KIDD ([id number]) [facility] ([facility]) [address] [place] [address] Hemoglobin (Bld) [Mass/Vol] 14.1 g/dL Normal 12.0-16.0 [facility] Ambulatory Comment on above: Performed By: #### 5 8410-2 #### EVA KIDD ([id number]) [facility] ([facility]) [address] [place] [address] 90163 MCH (RBC) [Entitic mass] 32.3 pg Normal 26.0-34.0 [facility] Ambulatory Comment on above: Performed By: #### 5 8410-2 #### EVA KIDD ([id number]) [facility] ([facility]) [address] [place], [place] [phone] MCHC (RBC) [Mass/Vol] 32.3 g/dL Normal 32.0-36.0 [facility] Ambulatory Comment on above: Performed By: #### 5 8410-2 #### EVA KIDD ([id number]) [facility] ([facility]) [facility] [place] [address] MCV (RBC) [Entitic vol] 100 fL Normal 80-100 [facility] Ambulatory Comment on above: Performed By: #### 5 8410-2 #### EVA KIDD ([id number]) [facility] ([facility]) [address] [place] [address] 79483 Nucleated RBC/100 WBC (Bld) [Ratio] 0.0 /100 WBCs Normal 0.0-0.0 [facility] Ambulatory Comment on above: Performed By: #### 5 8410-2 #### EVA KIDD ([id number]) [facility] ([facility]) [address] [place] [address] 19102 Platelets (Bld) [#/Vol] 517 x10*3/uL High 150-450 [facility] Ambulatory Comment on above: Performed By: #### 5 8410-2 #### EVA KIDD ([id number]) [facility] ([facility]) [address] [place] [address] 45604 RBC (Bld) [#/Vol] 4.36 x10*6/uL Normal 4.00-5.20 [facility] Ambulatory Comment on above: Performed By: #### 5 8410-2 #### EVA KIDD ([id number]) [facility] ([facility]) [address] [place] [address] 66544 WBC (Bld) [#/Vol] 10.2 x10*3/uL Normal 4.4-11.3 [facility] Ambulatory Comment on above: Performed By: #### 5 8410-2 #### EVA KIDD ([id number]) [facility] ([facility]) [address] [place] [address] 18099 POINT OF CARE ULTRASOUND NO CHARGEon 09-29-2024 POINT OF CARE ULTRASOUND NO CHARGE These images are not reportable by radiology and will not be interpreted by Radiologists. Normal [facility] US Abdomenon 09-29-2024 These images are not reportable by radiology and will not be interpreted by Radiologists. IMAGING ALLIED HEALTHon 09-18-2024 ALLIED HEALTH HNO ID: [id number] Author: SHREYAS TORRES RT(R) Service: Radiology Author Type: Sas Programmer Remote Type: Allied Health Filed: 09/18/2024 05:45 Note Text: Radiology Service Progress Note DATE OF SERVICE: September 18, 2024 TIME: 5:44 AM PATIENT IDENTITY VERIFICATION COMPLETED USING TWO (2) STANDARD IDENTIFIERS: Name and Date of confirmed by patient verbally and Name and Date of confirmed by identification band. FALL SCREENING: Has the patient had 2 falls in the last year or 1 fall with injury or currently using an Ambulatory Assistive Device (Walker, Cane, Wheelchair, Crutches, etc.)? Emergency Room Patient: Screened in ED PATIENT GENDER DATA: Assigned female at . status: : No status: NO. PATIENT RELEVANT IMPLANT DATA REVIEWED: Yes PATIENT PRESENTS WITH AN IMPLANTABLE OR ATTACHED PETROLEUM REFINING EQUIPMENT OPERATOR: No ALLERGIES: Reviewed and unchanged CONTRAST ALLERGY: NO. EXAM: CT -CONTRAST INDUCED NEPHROPATHY RISK FACTORS: Not applicable CREATININE: Creatinine Date Value Ref Range Status 09/18/2024 0.65 0.58 - 0.96 mg/dL Final 09/02/2024 0.79 0.58 - 0.96 mg/dL Final 04/21/2024 0.89 0.58 - 0.96 mg/dL Final Estimated Glomerular Filtration Rate Date Value Ref Range Status 09/18/2024 103 >=60 mL/min/1.73m? Final Comment: Estimated Glomerular Filtration Rate (eGFR) is calculated using the 2020 CKD-EPI creatinine equation. This equation utilizes serum creatinine, sex, and age as parameters. The creatinine assay has traceable calibration to isotope dilution-mass spectrometry. Refer to KDIGO guidelines for clinical interpretation. In patients with unstable renal function, e.g. those with acute kidney injury, the eGFR may not accurately reflect actual GFR. eGFR- Date Value Ref Range Status 05/16/2021 >60 Final P.O.C.T. RESULTS: POC done: Yes, See Lab Tab September 18, 2024 TREATMENT: N/A PERIPHERAL IV DATA: Inpatient - refer to LDA documentation RADIOLOGY DEPARTMENT: CT; Exam(s) Completed: Abdomen/Pelvis SIGNATURE: RT Frances(R) PATIENT NAME: Tabitha Fish DATE: September 18, 2024 TIME: 5:44 AM Normal [facility] CBC W Auto Differential pane l (Bld)on 09-18-2024 Basophils (Bld) [#/Vol] 0.03 10*3/uL Normal <0.11 [facility] Comment on above: Order Comment: Speci men Type: BLOOD SPECIMENOrdering Facility: [facility] Address: [address] [place] [address] Performed By: #### 5 7021-8 ####[facility] LABCLIA [id number] [place] [address] [place] Basophils/100 WBC (Bld) 0.2 % Normal [facility] Comment on above: Order Comment: Speci men Type: BLOOD SPECIMENOrdering Facility: [facility] Address: [address] [place] [address] Performed By: #### 5 7021-8 ####[facility] LABCLIA [id number] [place] [address] [facility] Differential cell count method Nom (Bld) Auto Normal [facility] Comment on above: Order Comment: Speci men Type: BLOOD SPECIMENOrdering Facility: [facility] Address: [address] [place] [address] Performed By: #### 5 7021-8 ####[facility] LABCLIA [id number] [place] [address] [place] Eosinophils (Bld) [#/Vol] 10*3/uL Normal <0.46 [facility] Comment on above: Order Comment: Speci men Type: BLOOD SPECIMENOrdering Facility: [facility] Address: [address] [place] [address] Performed By: #### 5 7021-8 ####[facility] LABCLIA [id number] [place] [address] [facility] Eosinophils/100 WBC (Bld) 0.0 % Normal [facility] Comment on above: Order Comment: Speci men Type: BLOOD SPECIMENOrdering Facility: [facility] Address: [address] [place] [address] Performed By: #### 5 7021-8 ####[facility] LABCLIA [id number] [facility] [address] [place] Erythrocyte distribution width (RBC) [Ratio] 13.0 % Normal 11.5-15.0 [facility] Comment on above: Order Comment: Speci men Type: BLOOD SPECIMENOrdering Facility: [facility] Address: [address] [place] [address] Performed By: #### 5 7021-8 ####[facility] LABCLIA [id number] [facility] [address] [place] Hematocrit (Bld) [Volume fraction] 42.7 % Normal 36.0-46.0 [facility] Comment on above: Order Comment: Speci men Type: BLOOD SPECIMENOrdering Facility: [facility] Address: [address] [place] [address] Performed By: #### 5 7021-8 ####[facility] LABCLIA [id number] [facility] [address] [place] Hemoglobin (Bld) [Mass/Vol] 14.1 g/dL Normal 11.5-15.5 [facility] Comment on above: Order Comment: Speci men Type: BLOOD SPECIMENOrdering Facility: [facility] Address: [address] [place] [address] Performed By: #### 5 7021-8 ####[facility] LABCLIA [id number] [facility] [address] [place] Immature granulocytes (Bld) [#/Vol] 0.03 10*3/uL Normal <0.10 [facility] Comment on above: Order Comment: Speci men Type: BLOOD SPECIMENOrdering Facility: [facility] Address: [address] [place] [address] Performed By: #### 5 7021-8 ####[facility] LABCLIA [id number] [facility] [address] [place] Immature granulocytes/100 WBC (Bld) 0.2 % Normal [facility] Comment on above: Order Comment: Speci men Type: BLOOD SPECIMENOrdering Facility: [facility] Address: [address] [place] [address] Performed By: #### 5 7021-8 ####[facility] LABCLIA [id number] [place] [address] [facility] Lymphocytes (Bld) [#/Vol] 2.10 10*3/uL Normal 1.00-4.00 [facility] Comment on above: Order Comment: Speci men Type: BLOOD SPECIMENOrdering Facility: [facility] Address: [address] [place] [address] Performed By: #### 5 7021-8 ####[facility] LABCLIA [id number] [place] [id number] [facility] Lymphocytes/100 WBC (Bld) 15.5 % Normal [facility] Comment on above: Order Comment: Speci men Type: BLOOD SPECIMENOrdering Facility: [facility] Address: [address] [place] [address] Performed By: #### 5 7021-8 ####[facility] LABCLIA [id number] [place] [address] [place] MCH (RBC) [Entitic mass] 32.0 pg Normal 26.0-34.0 [facility] Comment on above: Order Comment: Speci men Type: BLOOD SPECIMENOrdering Facility: [facility] Address: [address] [place] [address] Performed By: #### 5 7021-8 ####[facility] LABCLIA [id number] [place] [address] [place] MCHC (RBC) [Mass/Vol] 33.0 g/dL Normal 30.5-36.0 [facility] Comment on above: Order Comment: Speci men Type: BLOOD SPECIMENOrdering Facility: [facility] Address: [address] [place] [address] Performed By: #### 5 7021-8 ####[facility] LABCLIA [id number] [place] [address] [place] MCV (RBC) [Entitic vol] 97.0 fL Normal 80.0-100.0 [facility] Comment on above: Order Comment: Speci men Type: BLOOD SPECIMENOrdering Facility: [facility] Address: [address] [place] [address] Performed By: #### 5 7021-8 ####[facility] LABCLIA [id number] [facility] [address] [place] Monocytes (Bld) [#/Vol] 1.14 10*3/uL High <0.87 [facility] Comment on above: Order Comment: Speci men Type: BLOOD SPECIMENOrdering Facility: [facility] Address: [address] [place] [address] Performed By: #### 5 7021-8 ####[facility] LABCLIA [id number] [place] [address] [facility] [place] Monocytes/100 WBC (Bld) 8.4 % Normal [facility] Comment on above: Order Comment: Speci men Type: BLOOD SPECIMENOrdering Facility: [facility] Address: [address] [place] [address] Performed By: #### 5 7021-8 ####[facility] LABCLIA [id number] [facility] [address] [place] Neutrophils (Bld) [#/Vol] 10.21 10*3/uL High 1.45-7.50 [facility] Comment on above: Order Comment: Speci men Type: BLOOD SPECIMENOrdering Facility: [facility] Address: [address] [place] [address] Performed By: #### 5 7021-8 ####[facility] [place] LABCLIA [id number] [place] [address] [facility] Neutrophils/100 WBC (Bld) 75.7 % Normal [facility] Comment on above: Order Comment: Speci men Type: BLOOD SPECIMENOrdering Facility: [facility] Address: [address] [place] [address] Performed By: #### 5 7021-8 ####[facility] [place] LABCLIA [id number] [place] [address] [place] Nucleated RBC (Bld) [#/Vol] Normal [facility] Comment on above: Order Comment: Speci men Type: BLOOD SPECIMENOrdering Facility: [facility] Address: [address] [place] [address] Performed By: #### 5 7021-8 ####[facility] [place] LABCLIA [id number] [place] [address] [place] Nucleated RBC/100 WBC (Bld) [Ratio] Normal [facility] Comment on above: Order Comment: Speci men Type: BLOOD SPECIMENOrdering Facility: [facility] Address: [address] [place] [address] Performed By: #### 5 7021-8 ####[facility] [place] LABCLIA [id number] [place] [facility] [address] [place] Platelet mean volume (Bld) [Entitic vol] 10.4 fL Normal 9.0-12.7 [facility] Comment on above: Order Comment: Speci men Type: BLOOD SPECIMENOrdering Facility: [facility] Address: [address] [place] [address] Performed By: #### 5 7021-8 ####[facility] [place] LABCLIA [id number] [facility] [address] [place] Platelets (Bld) [#/Vol] 351 10*3/uL Normal 150-400 [facility] Comment on above: Order Comment: Speci men Type: BLOOD SPECIMENOrdering Facility: [facility] Address: [address] [place] [address] Performed By: #### 5 7021-8 ####[facility] [place] LABCLIA [id number] [place] [address] [place] RBC (Bld) [#/Vol] 4.40 10*6/uL Normal 3.90-5.20 [facility] Comment on above: Order Comment: Fany lee Type: BLOOD SPECIMENOrdering Facility: [facility] Address: [address] [place], [place] [address] Performed By: #### 5 7021-8 ####[facility] [place] LABCLGRICELDA [id number] [place] [address] [place] WBC (Bld) [#/Vol] 13.51 10*3/uL High 3.70-11.00 [facility] Comment on above: Order Comment: Speci men Type: BLOOD SPECIMENOrdering Facility: [facility] Address: [address] [place], [place] [address] Performed By: #### 5 7021-8 ####[facility] LABCLGRICELDA [id number] [place] [address] [facility] CT ABD/PEL W IVCONon 025 CT ABD/PEL W IVCON * * *Final Report* * * DATE OF EXAM: Sep 18 2024 5:45AM [facility] 0530 - CT ABD/PEL W IVCON / PROCEDURE REASON: lower abdominal pain * * * * Physician Interpretation * * * * EXAMINATION: CT ABDOMEN AND PELVIS WITH IV CONTRAST CLINICAL HISTORY: Lower abdominal pain TECHNIQUE: CT of the abdomen and pelvis was performed using standard technique, scanning from just above the dome of the diaphragm to the symphysis pubis. MQ: CTAP_3 Contrast: IV: 100 ml of Omnipaque 350 : ml of CT Radiation dose: Integrated Dose-length product (DLP) for this visit = 343.91 mGy*cm. CT Dose Reduction Employed: Automated exposure control(AEC) and iterative recon COMPARISON: CT 09/25/2022 RESULT: Liver: No mass. Biliary: No bile duct dilation. The gallbladder is surgically absent. Spleen: No mass. Calcified granulomas in spleen compatible with prior granulomatous No splenomegaly. Pancreas: No mass or duct dilation. Adrenals: No mass. Kidneys: No renal mass or hydronephrosis bilaterally. GI tract: No dilation or wall thickening. There is colonic diverticulosis without CT evidence of diverticulitis. Lymph nodes: No abdominal or pelvic lymphadenopathy. Mesentery/Peritoneum: No ascites or mass. Retroperitoneum: No mass. Vasculature: - Abdominal aorta and iliac arteries: No aneurysm. - Celiac and SMA: Patent without stenosis. - Portal venous system (SMV, splenic vein, portal vein and branches): Patent. - Hepatic veins: Patent. Pelvis: No mass, ascites or fluid collection. Bones/Soft Tissues: No acute fracture or osseous lesions are identified. Lower thorax: Emphysematous changes. Patchy airspace opacities in the right lower lobe base. Localizer images: No additional findings. IMPRESSION: 1. No acute findings in the abdomen or pelvis. 2. Colonic diverticulosis. 3. Patchy airspace opacities in the right lower lobe base concerning for pneumonia versus aspiration. Family Member Caretaker: PSCB Transcribe Date/Time: Sep 18 2024 5:46A Dictated by : SHREYAS CHOI MD This examination was interpreted and the report reviewed and electronically signed by: SHREYAS CHOI MD on Sep 18 2024 5:56AM EST [id number] Normal [facility] Comprehensive metabolic 2000 panelon 09-18-2024 Albumin [Mass/Vol] 3.6 g/dL Low 3.9-4.9 [facility] Comment on above: Order Comment: Speci men Type: BLOOD SPECIMENOrdering Facility: [facility] Address: [address] [place] [address] Performed By: #### 3 040-3, 22173-4 ####[facility] LABCLIA [id number] [place], [place] [address] [place] [address] [facility] ALP [Catalytic activity/Vol] 77 U/L Normal 34-123 [facility] Comment on above: Order Comment: Speci men Type: BLOOD SPECIMENOrdering Facility: [facility] Address: [address] [place] [address] Performed By: #### 3 040-3, 27761-2 ####[facility] LABCLIA [id number] [place] [id number] [place] [facility] ALT With P-5'-P [Catalytic activity/Vol] 10 U/L Normal 7-38 [facility] Comment on above: Order Comment: Speci men Type: BLOOD SPECIMENOrdering Facility: [facility] Address: [address] [place] [address] Performed By: #### 3 040-3, 14648-4 ####[facility] [place] LABCLIA [id number] [place] [address] [place] Anion gap [Moles/Vol] 13 mmol/L Normal 8-15 [facility] Comment on above: Order Comment: Speci men Type: BLOOD SPECIMENOrdering Facility: [facility] Address: [facility] [place] [address] Performed By: #### 3 040-3, 33223-3 ####[facility] [place] LABCLIA [id number] [place] [address] [place] [facility] AST With P-5'-P [Catalytic activity/Vol] 13 U/L Normal 13-35 [facility] Comment on above: Order Comment: Speci men Type: BLOOD SPECIMENOrdering Facility: [facility] Address: [address] [place] [address] Performed By: #### 3 -3, 15292-6 ####[facility] [place] LABCLIA [id number] [place] [address] [place] Bilirubin [Mass/Vol] 0.4 mg/dL Normal 0.2-1.3 [facility] Comment on above: Order Comment: Speci men Type: BLOOD SPECIMENOrdering Facility: [facility] Address: [address] [place] [address] Performed By: #### 3 040-3, 07835-9 ####[facility] [place] LABCLIA [id number] [place] [address] [place] Calcium [Mass/Vol] 9.2 mg/dL Normal 8.5-10.2 [facility] Comment on above: Order Comment: Speci men Type: BLOOD SPECIMENOrdering Facility: [facility] Address: [address] [place] [address] Performed By: #### 3 040-3, 53921-6 ####[facility] [place] LABCLIA [id number] [place] [address] [facility] Chloride [Moles/Vol] 96 mmol/L Low 98-107 [facility] Comment on above: Order Comment: Speci men Type: BLOOD SPECIMENOrdering Facility: [facility] Address: [address] [place] [address] Performed By: #### 3 040-3, 71008-9 ####[facility] [place] LABCLIA [id number] [place] [address] [place] CO2 [Moles/Vol] 27 mmol/L Normal 22-30 [facility] Comment on above: Order Comment: Speci men Type: BLOOD SPECIMENOrdering Facility: [facility] Address: [address] [place] [address] Performed By: #### 3 040-3, ####[facility] LABCLIA [id number] [place] [address] [facility] Creatinine [Mass/Vol] 0.65 mg/dL Normal 0.58-0.96 [facility] Comment on above: Order Comment: Speci men Type: BLOOD SPECIMENOrdering Facility: [facility] Address: [address] [place] [address] Performed By: #### 3 040-3, ####[facility] LABCLIA [id number] [place] [address] [facility] Creatinine and Glomerular filtration rate.predicted panel (S/P/Bld) 103 mL/min/1.73m??? Normal >=60 [facility] Comment on above: Order Comment: Speci men Type: BLOOD SPECIMENOrdering Facility: [facility] Address: [address] [place] [address] Result Comment: Verónica mated Glomerular Filtration Rate (eGFR) is calculated using the 2020 CKD-EPI creatinine equation. This equation utilizes serum creatinine, sex, and age as parameters. The creatinine assay has traceable calibration to isotope dilution-mass spectrometry. Refer to KDIGO guidelines for clinical interpretation. In patients with unstable renal function, e.g. those with acute kidney injury, the eGFR may not accurately reflect actual GFR. Performed By: #### 3 040-3, 65970-5 ####[facility] LABCL[facility] [id number] [place] [address] [place] Glucose [Mass/Vol] 117 mg/dL High 74-99 [facility] Comment on above: Order Comment: Fany lee Type: BLOOD SPECIMENOrdering Facility: [facility] Address: [address] [place] [address] Result Comment: The [place] Diabetes Association (ADA) provides guidance for cutoff values for fasting glucose and random glucose. The ADA defines fasting as no caloric intake for at least 8 hours. Fasting plasma glucose results between 100 to 125 mg/dL indicate increased risk for diabetes (prediabetes). Fasting plasma glucose results greater than or equal to 126 mg/dL meet the criteria for diagnosis of diabetes. In the absence of unequivocal hyperglycemia, results should be confirmed by repeat testing. In a patient with classic symptoms of hyperglycemia or hyperglycemic crisis, random plasma glucose results greater than or equal to 200 mg/dL meet the criteria for diagnosis of diabetes. Reference: Standards of Medical Care in Diabetes 2016, [place] [employer] Association. Diabetes Care. 2016.39(Suppl 1). Performed By: #### 3 040-3, 06377-9 ####[facility] LABCLIA [id number] [place] [address] [place] Potassium [Moles/Vol] 3.8 mmol/L Normal 3.7-5.1 [facility] Comment on above: Order Comment: Fany lee Type: BLOOD SPECIMENOrdering Facility: [facility] Address: [address] [place] [address] Performed By: #### 3 040-3, 23114-7 ####[facility] LABCLIA [id number] [place] [address] [place] Protein [Mass/Vol] 7.2 g/dL Normal 6.3-8.0 [facility] Comment on above: Order Comment: Fany lee Type: BLOOD SPECIMENOrdering Facility: [facility] Address: [address] [place], [place] [address] Performed By: #### 3 040-3, 01364-3 ####[facility] [place] LABCLIA [id number] [facility] [address] [place] Sodium [Moles/Vol] 136 mmol/L Normal 136-144 [facility] Comment on above: Order Comment: Speci men Type: BLOOD SPECIMENOrdering Facility: [facility] Address: [address] [place] [address] Performed By: #### 3 040-3, 43045-3 ####[facility] [place] LABCLIA [id number] [facility] [place] [address] [place] Urea nitrogen [Mass/Vol] 8 mg/dL Normal 7-21 [facility] Comment on above: Order Comment: Speci men Type: BLOOD SPECIMENOrdering Facility: [facility] Address: [address] [place] [address] Performed By: #### 3 040-3, 05489-8 ####[facility] [place] LABCLIA [id number] [place] [address] [facility] ED NOTEon 09-18-2024 ED NOTE HNO ID: [id number] Author: MICHAEL MCCLAIN RN Service: Emergency Medicine Author Type: Registered Nurse Type: ED Notes Filed: 09/18/2024 06:45 Note Text: Patient discharge instructions given to patient. Patient educated on discharge instructions and prescriptions. Patient denied having questions at this time regarding discharge instructions. Patient discharged home at this time with patient's spouse. [facility] ED NOTE HNO ID: [id number] Author: MICHAEL MCCLAIN RN Service: Emergency Medicine Author Type: Registered Nurse Type: ED Notes Filed: 09/18/2024 06:16 Note Text: ED physician stated that patient does not want to give a urine sample. [facility] ED NOTE HNO ID: [id number] Author: MICHAEL MCCLAIN RN Service: Emergency Medicine Author Type: Registered Nurse Type: ED Notes Filed: 09/18/2024 06:11 Note Text: ED physician at bedside. [facility] ED NOTE HNO ID: [id number] Author: MICHAEL MCCLAIN RN Service: Emergency Medicine Author Type: Registered Nurse Type: ED Notes Filed: 09/18/2024 05:16 Note Text: Patient moved to room 10. Patient was moved to room 10 after she showered in room 7 shower. During IV placement on patient, another nurse discovered what appeared to look like a bed-bug on the patient. Insect placed into specimen cup. Patient did indicate that she felt something bite her earlier. EMS reported to ED staff that patient's home did have bed bugs in there years ago but since then fumigated. Alterations Manager made aware of possible bed bug presence. Patient's belongings placed into zipped sealed bag. Patient placed into fresh gown after shower. [facility] ED NOTE HNO ID: [id number] Author: MICHAEL MCCLAIN RN Service: Emergency Medicine Author Type: Registered Nurse Type: ED Notes Filed: 09/18/2024 04:08 Note Text: ED physician at bedside. [facility] ED PROV NOTEon 09-18-2024 ED PROV NOTE HNO ID: [id number] Author: WINDY SANTIZO DO Service: Emergency Medicine Author Type: Physician Type: ED Provider Notes Filed: 09/18/2024 06:31 Note Text: ED Provider Note Patient Name: Tabitha Fish : 1965 SERVICE DATE: 09/18/24 History Patient presents with: Abdominal Pain Tabitha Fish is a 58 year old female with history of multiple chronic medical problems who presents with Abdominal Pain. - Symptoms began yesterday. - Severity: moderate - Timing: constant - Quality: cramping - Symptoms are associated with nausea. - Symptoms are not associated with chest pain, chills, fever, shortness of breath, vomiting, dysuria, hematuria. Patient presents stating show with abdominal pain yesterday after she started being cleaned out by magnesium citrate which she was prescribed on 09/16. She says she was in the ED on 09/16 due to constipation. She states she was not sure when her last bowel movement was at that time, but was on tramadol for an upcoming shoulder surgery. She came to the ED and had an abdominal x-ray with concern for constipation. She was prescribed Zofran, magnesium citrate, and Colace. She states she did stop the tramadol. She states since having the bowel movements she is having cramping lower abdominal pain. She describes the bowel movements as watery, nonbloody. She states she feels nauseated as well. No vomiting. No dysuria or hematuria. No fever or chills. PAST MEDICAL HISTORY Diagnosis Date Chronic obstructive pulmonary disease (COPD) (HCC) Coronary artery disease Heart attack (HCC) Migraine Pancreatitis (HCC) PAST SURGICAL HISTORY Procedure Laterality Date CHOLECYSTECTOMY HX 1999 HYSTERECTOMY HX 1998 still has ovaries FAMILY HISTORY Problem Relation Age of Onset Diabetes Mother Hypertension Father Diabetes Father Colon Cancer Father Dementia Father Alzheimer's Disease Father Cancer Brother lung Heart Attack Maternal Grandmother 70 Cancer Paternal Grandmother Cancer Paternal Grandfather Social History Tobacco Use Smoking status: Every Day Current packs/day: 0.50 Average packs/day: 0.5 packs/day for 43.4 years (21.7 ttl pk-yrs) Types: Cigarettes Start date: 1981 Smokeless tobacco: Never Vaping Use Vaping status: Never Used Substance and Sexual Activity Alcohol use: Never Drug use: Never Sexual activity: Not on file ALLERGIES Allergen Reactions Aspirin Anaphylaxis Benadryl [Diphenhyd* Hives Buspar [Buspirone] Intolerance Naproxen Anaphylaxis Toradol [Ketorolac] Hives Ubrelvy [Ubrogepant] Shortness of Breath Review of Systems Constitutional: Negative for chills and fever. Respiratory: Positive for cough (chronic, denies anything new/different). Negative for shortness of breath (nothing different from baseline with emphysema history). Cardiovascular: Negative for chest pain. Gastrointestinal: Positive for abdominal pain and nausea. Negative for anal bleeding, blood in stool and vomiting. + Watery stool since taking magnesium citrate Genitourinary: Negative for dysuria, flank pain and hematuria. Musculoskeletal: Negative for back pain. Skin: Negative for rash. Neurological: Negative for weakness and numbness. Psychiatric/Behavioral: Negative for agitation and confusion. Physical Exam Vitals [09/18/24 0404] BP Pulse Temp Temp src Resp SpO2 Weight Height 141/96 86 36.5 ?C (97.7 ?F) Temporal 20 96 % 64.4 kg (142 lb) 1.676 m (5' 6) Physical Exam Vitals and nursing note reviewed. Constitutional: Appearance: She is not toxic-appearing or diaphoretic. HENT: Head: Normocephalic and atraumatic. Mouth/Throat: Pharynx: Oropharynx is clear. Eyes: General: No scleral icterus. Conjunctiva/sclera: Conjunctivae normal. Cardiovascular: Rate and Rhythm: Normal rate and regular rhythm. Pulses: Normal pulses. Pulmonary: Effort: Pulmonary effort is normal. Breath sounds: Normal breath sounds. Abdominal: General: Abdomen is flat. Bowel sounds are normal. There is no distension. Palpations: Abdomen is soft. Tenderness: There is abdominal tenderness in the right lower quadrant, suprapubic area and left lower quadrant. There is no right CVA tenderness, left CVA tenderness, guarding or rebound. Genitourinary: Comments: Patient declined rectal exam. Skin: General: Skin is warm and dry. Capillary Refill: Capillary refill takes less than 2 seconds. Neurological: General: No focal deficit present. Mental Status: She is alert and oriented to person, place, and time. Psychiatric: Mood and Affect: Mood normal. Behavior: Behavior normal. Diagnostic Testing ED Labs Ordered and Reviewed COMPREHENSIVE METABOLIC PANEL - Abnormal; Notable for the following components: Result Value Ref Range Albumin 3.6 (*) 3.9 - 4.9 g/dL Glucose 117 (*) 74 - 99 mg/dL Chloride 96 (*) 98 - 107 mmol/L All other components within normal limits LIP (more content not included)... Normal [facility] Lipase SerPl-cCncon 09-19-19 25 Lipase [Catalytic activity/Vol] 11 U/L Low 16-61 [facility] Comment on above: Order Comment: Speci men Type: BLOOD SPECIMENOrdering Facility: [facility] Address: [address] [place] [address] Performed By: #### 3 040-3, 32679-8 ####[facility] [place] LABCLIA [id number] [place] [address] [facility] SEPSIS LACTATE W/ REFLEX (IN ITIAL)on 09-18-2024 Lactate [Moles/Vol] 1.4 mmol/L Normal <=2.0 [facility] Comment on above: Order Comment: Speci men Type: BLOOD SPECIMENOrdering Facility: [facility] Address: [address] [place] [address] Performed By: #### S LACTR ####[facility] ANGELI LABAZUL [id number] [place] [address] [facility] ED NOTEon 09-16-2024 ED NOTE HNO ID: [id number] Author: KENJI DAVILA, CIPRIANO Service: Emergency Medicine Author Type: Registered Nurse Type: ED Notes Filed: 09/16/2024 10:29 Note Text: No vomiting or loose stool in ED Normal [facility] ED PROV NOTEon 09-16-2024 ED PROV NOTE HNO ID: [id number] Author: JONAH CARPIO MD Service: Emergency Medicine Author Type: Physician Type: ED Provider Notes Filed: 09/16/2024 20:56 Note Text: ED Provider Note Patient Name: Tabitha Fish : 1965 SERVICE DATE: 09/16/24 History Patient presents with: Abdominal Pain Patient presents the emergency department with concerns of abdominal pain, nausea, vomiting and constipation. Patient has past surgical history of cholecystectomy, hysterectomy. Patient states has been taking tramadol, for an upcoming shoulder surgery, and she has been constipated with this which is increasing. Patient has not vomited in 24 hours however she still feels nauseous. Patient has not had any fevers, no recent antibiotic usage. No concern for urinary tract infection. Constipation Severity: Moderate Time since last bowel movement: 3 days Timing: Intermittent Progression: Worsening Chronicity: New Context: narcotics Stool description: None produced Associated symptoms: abdominal pain and nausea Associated symptoms: no diarrhea and no urinary retention Risk factors: no recent antibiotic use, no recent illness, no recent surgery and no recent travel PAST MEDICAL HISTORY Diagnosis Date Chronic obstructive pulmonary disease (COPD) (HCC) Coronary artery disease Heart attack (HCC) Migraine Pancreatitis (HCC) PAST SURGICAL HISTORY Procedure Laterality Date CHOLECYSTECTOMY HX 1999 HYSTERECTOMY HX 1998 still has ovaries FAMILY HISTORY Problem Relation Age of Onset Diabetes Mother Hypertension Father Diabetes Father Colon Cancer Father Dementia Father Alzheimer's Disease Father Cancer Brother lung Heart Attack Maternal Grandmother 70 Cancer Paternal Grandmother Cancer Paternal Grandfather Social History Tobacco Use Smoking status: Every Day Current packs/day: 0.50 Average packs/day: 0.5 packs/day for 43.4 years (21.7 ttl pk-yrs) Types: Cigarettes Start date: 1981 Smokeless tobacco: Never Vaping Use Vaping status: Never Used Substance and Sexual Activity Alcohol use: Never Drug use: Never Sexual activity: Not on file ALLERGIES Allergen Reactions Aspirin Anaphylaxis Benadryl [Diphenhyd* Hives Buspar [Buspirone] Intolerance Naproxen Anaphylaxis Toradol [Ketorolac] Hives Ubrelvy [Ubrogepant] Shortness of Breath Review of Systems Gastrointestinal: Positive for abdominal pain, constipation and nausea. Negative for diarrhea. All other systems reviewed and are negative. Physical Exam Vitals BP Pulse Temp Temp src Resp SpO2 Weight Height 09/16/24 0808 -- 09/16/24 0807 -- 09/16/24 0808 09/16/24 0808 09/16/24 0807 09/16/24 0807 137/98 36.2 ?C (97.1 ?F) 20 95 % 64.4 kg (142 lb) 1.676 m (5' 6) Physical Exam Vitals and nursing note reviewed. Constitutional: General: She is not in acute distress. Appearance: Normal appearance. She is not ill-appearing or toxic-appearing. HENT: Head: Normocephalic and atraumatic. Eyes: General: Right eye: No discharge. Left eye: No discharge. Cardiovascular: Rate and Rhythm: Normal rate and regular rhythm. Pulmonary: Effort: Pulmonary effort is normal. No respiratory distress. Breath sounds: Normal breath sounds. Abdominal: General: Bowel sounds are normal. Palpations: Abdomen is soft. There is no hepatomegaly or mass. Tenderness: There is no abdominal tenderness. There is no right CVA tenderness or left CVA tenderness. Hernia: No hernia is present. Skin: General: Skin is warm and dry. Neurological: General: No focal deficit present. Mental Status: She is alert and oriented to person, place, and time. Mental status is at baseline. Psychiatric: Mood and Affect: Mood normal. Behavior: Behavior normal. Diagnostic Testing ED Labs Ordered and Reviewed - No data to display Procedures ED Course / Clinical Impression Clinical Impressions as of 09/16/242053 Drug-induced constipation Generalized abdominal pain MDM / Disposition / Plan Patient with past history of cholecystectomy, hysterectomy, presents to the emergency department concerns over nausea, vomiting, abdominal pain and constipation. Patient attributes taking tramadol, for an upcoming shoulder surgery. Patient took stool softener 3 days without any improvement and she had vomiting on day 1 she has not vomited since then. X-ray demonstrates nonobstructive bowel gas pattern, with some mild to moderate amount of stool. I discussed with patient symptomatic therapy, treatment specific in the emergency department home. I offered patient possible digital disimpaction to see if this helped patient, and enema in the emergency permit, and although patient was still uncomfortable, she wanted to go home. Patient had no further episodes emesis in the emergency department is reassuring. Patient given a prescription for stool softener, magnesium citrate, I discussed over the (more content not included)... Normal [facility] XR ACUTE ABD SERIES 2V ABD+C XRon 09-16-2024 XR ACUTE ABD SERIES 2V ABD+CXR * * *Final Report* * * DATE OF EXAM: Sep 16 2024 8:57AM LDX 5359 - XR ACUTE ABD SERIES 2V ABD+CXR / PROCEDURE REASON: Nausea/Vomiting * * * * Physician Interpretation * * * * EXAM TITLE: ACUTE ABDOMINAL SERIES DATE: 09/16/2024 CLINICAL INDICATION/HISTORY: Nausea and vomiting COMPARISON: Chest x-ray 09/02/2024 TECHNIQUE: PA view the chest, upright AP view the abdomen. Supine AP views of the abdomen and pelvis. 4 images. FINDINGS: No pneumothorax, pleural effusion or consolidation. Increased lucency in the upper lung zones suggestive of emphysematous changes. Calcified nodule in right midlung likely calcified granuloma. Right mediastinal silhouette is unremarkable. No evidence of free intraperitoneal gas. No dilated loops of large or small bowel. Bowel gas pattern is nonobstructive and nonspecific. Surgical clips present in the right upper quadrant likely from prior cholecystectomy. IMPRESSION: No evidence of acute intrathoracic process. Nonobstructive nonspecific bowel gas pattern. Emphysematous changes. Family Member Caretaker: PSCB Transcribe Date/Time: Sep 16 2024 9:29A Dictated by : CHEYENNE KIRBY MD This examination was interpreted and the report reviewed and electronically signed by: CHEYENNE KIRBY MD on Sep 16 2024 9:32AM EST [id number] Normal [facility] ALLIED HEALTHon 09-02-2024 ALLIED HEALTH HNO ID: [id number] Author: IKE ANGLIN RT(R) Service: ? Author Type: Technologist Type: Allied Health Filed: 09/02/2024 18:14 Note Text: Radiology Service Progress Note PATIENT NAME: Tabitha Fish DATE OF SERVICE: September 02, 2024 TIME: 6:13 PM PATIENT IDENTITY VERIFICATION COMPLETED USING TWO (2) IDENTIFIERS: Name and Date of confirmed by patient verbally. FALL SCREENING: Has the patient had 2 falls in the last year or 1 fall with injury or currently using an Ambulatory Assistive Device (Walker, Cane, Wheelchair, Crutches, etc.)? Emergency Room Patient: Screened in ED PATIENT GENDER DATA: Assigned female at . status: : No status: NO. PATIENT RELEVANT IMPLANT DATA REVIEWED: Not Applicable PATIENT PRESENTS WITH AN IMPLANTABLE OR ATTACHED PETROLEUM REFINING EQUIPMENT OPERATOR: No RADIOLOGY DEPARTMENT: General X-ray: Exam(s) Completed: Chest X-Ray PERIPHERAL IV DATA: Not applicable SIGNED BY: RT Jose Alfredo(R) September 02, 2024 6:13 PM Normal [facility] Basic metabolic 2000 panelon 09-02-2024 Anion gap [Moles/Vol] 12 mmol/L Normal 8-15 [facility] Comment on above: Order Comment: Speci men Type: BLOOD SPECIMENOrdering Facility: [facility] Address: [address] [place] [address] Performed By: #### 2 4321-2, 31220-8, ####[facility] LABCLIA [id number] [place] [address] [place] Calcium [Mass/Vol] 9.5 mg/dL Normal 8.5-10.2 [facility] Comment on above: Order Comment: Speci men Type: BLOOD SPECIMENOrdering Facility: [facility] Address: [address] [place] [address] Performed By: #### 2 4321-2, 92935-8, ####[facility] LABCLIA [id number] [place] [address] [place] Chloride [Moles/Vol] 103 mmol/L Normal 98-107 [facility] Comment on above: Order Comment: Speci men Type: BLOOD SPECIMENOrdering Facility: [facility] Address: [address] [place] [address] Performed By: #### 2 4321-2, 40339-1, ####[facility] LABCLIA [id number] [place] [address] [facility] CO2 [Moles/Vol] 24 mmol/L Normal 22-30 [facility] Comment on above: Order Comment: Speci men Type: BLOOD SPECIMENOrdering Facility: [facility] Address: [address] [place] [address] Performed By: #### 2 4321-2, 37165-0, ####[facility] LABCLIA [id number] [place] [address] [facility] Creatinine [Mass/Vol] 0.79 mg/dL Normal 0.58-0.96 [facility] Comment on above: Order Comment: Speci men Type: BLOOD SPECIMENOrdering Facility: [facility] Address: [address] [place] [address] Performed By: #### 2 4321-2, 87187-2, ####[facility] LABIA [id number] [place] [address] [facility] Creatinine and Glomerular filtration rate.predicted panel (S/P/Bld) 87 mL/min/1.73m??? Normal >=60 [facility] Comment on above: Order Comment: Speci men Type: BLOOD SPECIMENOrdering Facility: [facility] Address: [address] [place] [address] Result Comment: Verónica mated Glomerular Filtration Rate (eGFR) is calculated using the 2020 CKD-EPI creatinine equation. This equation utilizes serum creatinine, sex, and age as parameters. The creatinine assay has traceable calibration to isotope dilution-mass spectrometry. Refer to KDIGO guidelines for clinical interpretation. In patients with unstable renal function, e.g. those with acute kidney injury, the eGFR may not accurately reflect actual GFR. Performed By: #### 2 4321-2, 31642-5, ####[facility] LABCLIA [id number] [place] [address] [place] Glucose [Mass/Vol] 184 mg/dL High 74-99 [facility] Comment on above: Order Comment: Speci men Type: BLOOD SPECIMENOrdering Facility: [facility] Address: [address] [place], [place] [id number] Result Comment: The [place] Diabetes [employer] (ADA) provides guidance for cutoff values for fasting glucose and random glucose. The ADA defines fasting as no caloric intake for at least 8 hours. Fasting plasma glucose results between 100 to 125 mg/dL indicate increased risk for diabetes (prediabetes). Fasting plasma glucose results greater than or equal to 126 mg/dL meet the criteria for diagnosis of diabetes. In the absence of unequivocal hyperglycemia, results should be confirmed by repeat testing. In a patient with classic symptoms of hyperglycemia or hyperglycemic crisis, random plasma glucose results greater than or equal to 200 mg/dL meet the criteria for diagnosis of diabetes. Reference: Standards of Medical Care in Diabetes 2016, [place] [employer] Association. Diabetes Care. 2016.39(Suppl 1). Performed By: #### 2 4321-2, 06239-4, ####[facility] LABCLIA [id number] [place] [address] [place] Potassium [Moles/Vol] 4.0 mmol/L Normal 3.7-5.1 [facility] Comment on above: Order Comment: Speci men Type: BLOOD SPECIMENOrdering Facility: [facility] Address: [address] [place] [address] Performed By: #### 2 4321-2, 36751-3, ####[facility] LABIA [id number] [place] [address] [place] Sodium [Moles/Vol] 139 mmol/L Normal 136-144 [facility] Comment on above: Order Comment: Osmanyi men Type: BLOOD SPECIMENOrdering Facility: [facility] Address: [address] [place], [place] [address] Performed By: #### 2 4321-2, 43460-8, ####[facility] LABCLIA [id number] [facility] [address] [place] Urea nitrogen [Mass/Vol] 12 mg/dL Normal 7-21 [facility] Comment on above: Order Comment: Speci men Type: BLOOD SPECIMENOrdering Facility: [facility] Address: [address] [place] [address] Performed By: #### 2 4321-2, 66849-6, 16050-1 ####[facility] LABCLIA [id number] [facility] [place] [address] [place] CBC panel Auto (Bld)on 09-02 Erythrocyte distribution width (RBC) [Ratio] 14.1 % Normal 11.5-15.0 [facility] Comment on above: Order Comment: Speci men Type: BLOOD SPECIMENOrdering Facility: [facility] Address: [address] [place] [address] Performed By: #### 5 8410-2 ####[facility] LABCLIA [id number] [facility] [place] [address] [place] [facility] Hematocrit (Bld) [Volume fraction] 46.7 % High 36.0-46.0 [facility] Comment on above: Order Comment: Speci men Type: BLOOD SPECIMENOrdering Facility: [facility] Address: [address] [place] [address] Performed By: #### 5 8410-2 ####[facility] LABCLIA [id number] [facility] [place] [address] [place] [facility] Hemoglobin (Bld) [Mass/Vol] 15.5 g/dL Normal 11.5-15.5 [facility] Comment on above: Order Comment: Speci men Type: BLOOD SPECIMENOrdering Facility: [facility] Address: [address] [place] [address] Performed By: #### 5 8410-2 ####[facility] LABCLIA [id number] [facility] [place] [address] [place] MCH (RBC) [Entitic mass] 32.4 pg Normal 26.0-34.0 [facility] Comment on above: Order Comment: Speci men Type: BLOOD SPECIMENOrdering Facility: [facility] Address: [address] [place] [address] Performed By: #### 5 8410-2 ####[facility] LABCLIA [id number] [place] [address] [place] MCHC (RBC) [Mass/Vol] 33.2 g/dL Normal 30.5-36.0 [facility] Comment on above: Order Comment: Speci men Type: BLOOD SPECIMENOrdering Facility: [facility] Address: [address] [place] [address] Performed By: #### 5 8410-2 ####[facility] LABCLIA [id number] [place] [address] [place] MCV (RBC) [Entitic vol] 97.5 fL Normal 80.0-100.0 [facility] Comment on above: Order Comment: Speci men Type: BLOOD SPECIMENOrdering Facility: [facility] Address: [address] [place] [address] Performed By: #### 5 8410-2 ####[facility] LABCLIA [id number] [place] [address] [facility] [place] Platelet mean volume (Bld) [Entitic vol] 10.2 fL Normal 9.0-12.7 [facility] Comment on above: Order Comment: Speci men Type: BLOOD SPECIMENOrdering Facility: [facility] Address: [address] [place] [address] Performed By: #### 5 8410-2 ####[facility] LABCLIA [id number] [place] [address] [facility] Platelets (Bld) [#/Vol] 305 10*3/uL Normal 150-400 [facility] Comment on above: Order Comment: Speci men Type: BLOOD SPECIMENOrdering Facility: [facility] Address: [address] [place] [address] Performed By: #### 5 8410-2 ####[facility] LABCLIA [id number] [place] [address] [facility] RBC (Bld) [#/Vol] 4.79 10*6/uL Normal 3.90-5.20 [facility] Comment on above: Order Comment: Speci men Type: BLOOD SPECIMENOrdering Facility: [facility] Address: [address] [place] [address] Performed By: #### 5 8410-2 ####[facility] LABCLIA [id number] [place] [address] [facility] WBC (Bld) [#/Vol] 9.80 10*3/uL Normal 3.70-11.00 [facility] Comment on above: Order Comment: Speci men Type: BLOOD SPECIMENOrdering Facility: [facility] Address: [address] [place] [address] Performed By: #### 5 8410-2 ####[facility] LABCLIA [id number] [place] [address] [facility] ECG COMPLETEon 09-02-2024 ECG COMPLETE Ventricular Rate : 9 3 BPM Atrial Rate : 93 BPM P-R Interval : 160 ms QRS Duration : 136 ms Q-T Interval : 380 ms QTC Calculation(Bazett) : 472 ms Calculated P [place] : 89 degrees Calculated R [place] : 91 degrees Calculated T [place] : 95 degrees NORMAL SINUS RHYTHM RIGHT AXIS DEVIATION NON-SPECIFIC INTRA-VENTRICULAR CONDUCTION BLOCK ABNORMAL ECG WHEN COMPARED WITH ECG OF 21-Apr-2024 16:06, NO SIGNIFICANT CHANGE WAS FOUND Confirmed by MD PRIEST VINAYAK ([id number]) on 09/03/2024 10:44:32 PM NAME : TABITHA FISH PID : [id number] : 1965 Gender : Female Race : ORD : [id number] Procedure Date : Sep 02 2024 17:30:28 Edit Date : Sep 03 2024 22:44:33 Diagnosis: NORMAL SINUS RHYTHM RIGHT AXIS DEVIATION NON-SPECIFIC INTRA-VENTRICULAR CONDUCTION BLOCK ABNORMAL ECG WHEN COMPARED WITH ECG OF 21-Apr-2024 16:06, NO SIGNIFICANT CHANGE WAS FOUND Confirmed by MD PRIEST VINAYAK ([id number]) on 09/03/2024 10:44:32 PM Test Reason : Chest Pain Location : 191 : [facility] ED Overread By : MD PRIEST VINAYAK Edited By : MD PRIEST VINAYAK Referred By : , Acquired by : LINNEA CARR [facility] ED NOTEon 09-02-2024 ED NOTE HNO ID: [id number] Author: KENJI DAVILA RN Service: Emergency Medicine Author Type: Registered Nurse Type: ED Notes Filed: 09/03/2024 09:59 Note Text: Patient Call Back Information How are you doing ? better Did we appropriately manage your pain? Yes Did you understand your discharge instructions? Yes Did you get your prescriptions filled? Yes Were you able to make a follow-up appointment with your physician? Yes Were you comfortable during your stay here? Yes Did a member of the ER nursing team round on you during your visit? Yes You will receive a patient satisfaction survey in the mail in the nest 2 weeks, please take the time to fill out the survey as your input from your ER visit is very important to us. Yes Can we do anything else to help you? No [facility] ED NOTE HNO ID: [id number] Author: MICHAEL MCCLAIN RN Service: Emergency Medicine Author Type: Registered Nurse Type: ED Notes Filed: 09/02/2024 19:36 Note Text: Patient discharge instructions given to patient. Patient educated on discharge instructions and prescriptions. Patient denied having questions at this time regarding discharge instructions. Patient discharged home at this time. [facility] ED NOTE HNO ID: [id number] Author: MICHAEL MCCLAIN RN Service: Emergency Medicine Author Type: Registered Nurse Type: ED Notes Filed: 09/02/2024 19:26 Note Text: Change of shift report received from Devi Waller RN. I assumed patient care at this time. [facility] ED NOTE HNO ID: [id number] Author: DEVI WILSON RN Service: Nursing Author Type: Registered Nurse Type: ED Notes Filed: 09/02/2024 18:15 Note Text: Aerosol treatment complete. Patient tolerated well. [facility] ED NOTE HNO ID: [id number] Author: DEVI WILSON, RN Service: Nursing Author Type: Registered Nurse Type: ED Notes Filed: 09/02/2024 17:39 Note Text: Patient presents with chest pain x 2 days, SOB and sweating. She reports the pain as pressure. She is tearful. She states It may be my anxiety. Denies injury. She has COPD and denies change in cough or increased need for inhalers. Normal [facility] ED PROV NOTEon 09-02-2024 ED PROV NOTE HNO ID: [id number] Author: CHRISTIANO GALE MD Service: Emergency Medicine Author Type: Physician Type: ED Provider Notes Filed: 09/02/2024 19:26 Note Text: ED Provider Note Patient Name: Tabitha Fish : 1965 SERVICE DATE: 09/02/24 History Patient presents with: Chest Pain Shortness of Breath Tabitha Fish is a 58 year old female with history of CAD and COPD who presents with generalized chest pain. - Symptoms began 3 days prior to arrival. Onset was sudden and symptoms are waxing/waning. - Severity: mild - Timing: intermittent - Quality: sharp - Pain is exacerbated by inspiration. - Pain is not exacerbated by palpation. - Symptoms are associated with cough and wheeze. - Symptoms are not associated with left arm pain and numbness. - Improved by nothing. - Not improved by rest. PAST MEDICAL HISTORY Diagnosis Date Chronic obstructive pulmonary disease (COPD) (HCC) Coronary artery disease Heart attack (HCC) Migraine Pancreatitis (HCC) PAST SURGICAL HISTORY Procedure Laterality Date CHOLECYSTECTOMY HX 1999 HYSTERECTOMY HX 1998 still has ovaries FAMILY HISTORY Problem Relation Age of Onset Diabetes Mother Hypertension Father Diabetes Father Colon Cancer Father Dementia Father Alzheimer's Disease Father Cancer Brother lung Heart Attack Maternal Grandmother 70 Cancer Paternal Grandmother Cancer Paternal Grandfather Social History Tobacco Use Smoking status: Every Day Current packs/day: 0.50 Average packs/day: 0.5 packs/day for 43.3 years (21.7 ttl pk-yrs) Types: Cigarettes Start date: 1981 Smokeless tobacco: Never Vaping Use Vaping status: Never Used Substance and Sexual Activity Alcohol use: Never Drug use: Never Sexual activity: Not on file ALLERGIES Allergen Reactions Aspirin Anaphylaxis Benadryl [Diphenhyd* Hives Buspar [Buspirone] Intolerance Naproxen Anaphylaxis Toradol [Ketorolac] Hives Ubrelvy [Ubrogepant] Shortness of Breath Review of Systems Constitutional: Negative for chills and fever. Respiratory: Positive for cough, shortness of breath and wheezing. Cardiovascular: Positive for chest pain. Negative for palpitations and leg swelling. Gastrointestinal: Negative for nausea and vomiting. Musculoskeletal: Negative for back pain and neck pain. Allergic/Immunologic: Negative for environmental allergies, food allergies and immunocompromised state. Neurological: Negative for syncope and light-headedness. Psychiatric/Behavioral: Negative for confusion. The patient is nervous/anxious. Physical Exam Vitals [09/02/24 1727] BP Pulse Temp Temp src Resp SpO2 Weight Height 154/105 (!) 101 36.4 ?C (97.5 ?F) Temporal Art 18 96 % 65.3 kg (144 lb) -- Physical Exam Vitals and nursing note reviewed. Constitutional: General: She is not in acute distress. Appearance: She is well-developed. She is not ill-appearing, toxic-appearing or diaphoretic. HENT: Head: Normocephalic. Neck: Vascular: No JVD. Trachea: No tracheal deviation. Cardiovascular: Rate and Rhythm: Normal rate and regular rhythm. Pulses: Radial pulses are 1+ on the right side and 1+ on the left side. Heart sounds: Normal heart sounds. No murmur heard. Pulmonary: Effort: Pulmonary effort is normal. No respiratory distress. Breath sounds: Examination of the right-upper field reveals decreased breath sounds. Examination of the left-upper field reveals decreased breath sounds. Examination of the right-middle field reveals decreased breath sounds and wheezing. Examination of the left-middle field reveals decreased breath sounds and wheezing. Examination of the right-lower field reveals decreased breath sounds and wheezing. Examination of the left-lower field reveals decreased breath sounds and wheezing. Decreased breath sounds and wheezing present. Chest: Chest wall: No tenderness or crepitus. Abdominal: Palpations: Abdomen is soft. Skin: General: Skin is warm and dry. Findings: No rash. Neurological: General: No focal deficit present. Mental Status: She is alert and oriented to person, place, and time. Psychiatric: Mood and Affect: Mood is anxious. Behavior: Behavior normal. Behavior is not agitated. Diagnostic Testing ED Labs Ordered and Reviewed - No data to display Procedures ED Course / Clinical Impression Clinical Impressions as of 09/02/24 1907 Chest pain, unspecified type COPD exacerbation (HCC) MDM / Disposition / Plan Patient is currently out of her Ventolin she only uses her Spiriva intermittently she has had cough and wheeze and is describing intermittent chest pains that are in various locations of the chest that moved from the right side of the left side to the upper back they last several minutes with quick onset and quick offset. No traumatic injury. Patient does have a history of previous ME and that is what she is mostly concerned about today come to the (more content not included)... Normal [facility] HIGH SENSITIVITY TROPONIN T (INITIAL)on 09-02-2024 Troponin T.cardiac High sensitivity method [Mass/Vol] <6 Normal <12 [facility] Comment on above: Order Comment: Fany lee Type: BLOOD SPECIMENOrdering Facility: [facility] Address: [address] [place] [address] Performed By: #### L [id number] ####[facility] LABCLIA [id number] [place] [address] [facility] HIGH SENSITIVITY TROPONIN T (SECOND)on 09-02-2024 Troponin T.cardiac High sensitivity method [Mass/Vol] <6 Normal <12 [facility] Comment on above: Order Comment: Fany lee Type: BLOOD SPECIMENOrdering Facility: [facility] Address: [address] [place] [address] Performed By: #### L [id number] ####[facility] LABCLIA [id number] [place] [address] [facility] Magnesium SerPl-mCncon 09-02 Magnesium [Mass/Vol] 2.4 mg/dL High 1.7-2.3 [facility] Comment on above: Order Comment: Fany lee Type: BLOOD SPECIMENOrdering Facility: [facility] Address: [address] [place] [address] Performed By: #### 2 4321-2, 20413-5, 75195-8 ####[facility] LABCLIA [id number] [place] [address] [facility] NT-proBNP SerPl-mCncon 09-02 Natriuretic peptide.B prohormone N-Terminal [Mass/Vol] 152 pg/mL High <125 [facility] Comment on above: Order Comment: Speci men Type: BLOOD SPECIMENOrdering Facility: [facility] Address: [address] [place] [address] Performed By: #### 2 4321-2, 22242-8, 32373-0 ####[facility] LABCLIA [id number] [facility] [place] [address] [facility] XR CHEST 1V FRONTALon 2024 XR CHEST 1V FRONTAL * * *Final Report* * * DATE OF EXAM: Sep 02 2024 6:02PM LDX 5290 - XR CHEST 1V FRONTAL / PROCEDURE REASON: Shortness of breath * * * * Physician Interpretation * * * * EXAMINATION: CHEST RADIOGRAPH (SINGLE VIEW AP OR PA) CLINICAL HISTORY: Shortness of breath MQ: XC1_5 Comparison: 04/21/2024 and 12/16/2022 chest radiographs as well as 06/17/[address] RESULT: Lines, tubes, and devices: EKG electrodes. Lungs and pleura: Hyperexpansion of the lungs with upper lobe predominant pulmonary emphysema. Redemonstration of calcified granulomata. No focal consolidation, pneumothorax or pleural effusion. Cardiomediastinal silhouette: Normal cardiomediastinal silhouette with redemonstration of apical pericardial fat pad. Other: No displaced acute fractures are detected. IMPRESSION: No acute radiographic abnormality. Family Member Caretaker: PSCB Transcribe Date/Time: Sep 02 2024 6:10P Dictated by : LONDON NAVARRO MD This examination was interpreted and the report reviewed and electronically signed by: LONDON NAVARRO MD on Sep 02 2024 6:11PM EST [id number] [facility] [facility] POINT OF CARE ULTRASOUND NO CHARGEon 08-14-2024 POINT OF CARE ULTRASOUND NO CHARGE These images are not reportable by radiology and will not be interpreted by Radiologists. Normal [facility] US Abdomenon 08-14-2024 These images are not reportable by radiology and will not be interpreted by Radiologists. IMAGING XR SHOULDER RIGHT 2+ VIEWSon 08-14-2024 XR SHOULDER RIGHT 2+ VIEWS Interpreted By: Delores Anderson, STUDY: Right shoulder, 5 views. INDICATION: Signs/Symptoms:ACUTE PAIN OF RIGHT SHOULDER. COMPARISON: None. ACCESSION NUMBER(S): [id number] ORDERING CLINICIAN: SEGUN GARAY FINDINGS: No acute fracture or malalignment. Mild acromioclavicular joint osteoarthrosis with osteophytes. Glenohumeral joint is within normal limits. Soft tissues are unremarkable. IMPRESSION: 1. Mild acromioclavicular joint osteoarthrosis. Otherwise, unremarkable right shoulder radiographs. MACRO: None. Signed by: Delores Anderson 08/15/2024 1:29 PM Dictation workstation: [id number] [facility] MR SHOULDER RIGHT WO IV CONT RASTon 07-31-2024 MR SHOULDER RIGHT WO IV CONTRAST Interpreted By: Delores Anderson, STUDY: MRI of the right shoulder with out IV contrast INDICATION: Signs/Symptoms:limited ROM and pain COMPARISON: None. ACCESSION NUMBER(S): [id number] ORDERING CLINICIAN: CATRACHITA TERRY TECHNIQUE: Multiplanar multisequence MRI of the right shoulder was performed without intravenous contrast. FINDINGS: Acromioclavicular Joint: Mild AC joint osteoarthrosis with osteophytes and capsular distension. There is communication of the glenohumeral joint fluid with subacromial bursa secondary to full-thickness rotator cuff tear described below. Biceps Tendon: Mild intra-articular long head biceps tendinosis with mild thickening and increased intermediate fluid signal.. Rotator Cuff: Full-thickness full width supraspinatus tear from insertional footprint, retracted to the level of the humeral head vertex. Infraspinatus tendon is within normal limits. Teres minor and subscapularis tendons are within normal limits. Muscles: Normal signal intensity and volume. No evidence of muscular edema or atrophy. Labrum: Evaluation of labrum is limited due to lack of intraarticular contrast. Blunting of the superior glenoid labrum suggesting chronic degenerative labral tearing. Articular Cartilage: The articular cartilage of the glenoid and humeral head are intact. Bones: The marrow signal of the humeral head is within normal limits. No evidence acute fracture or contusion. Nerves: No evidence of mass effect in the region of the quadrilateral space or suprascapular nerve. Other: None. IMPRESSION: 1. Full-thickness full width supraspinatus tear from insertional footprint, retracted to the level of the humeral head vertex 2. Mild intra-articular long head biceps tendinosis 3. Mild AC joint osteoarthrosis. 4. 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 Signed by: Delores Anderson 07/31/2024 9:48 AM Dictation workstation: [id number] [facility] MR Shoulder - right WO contr stefanie 07-31-2024 1. Full-thickness fu ll width supraspinatus tear from insertional footprint, retracted to the level of the humeral head vertex 2. Mild intra-articular long head biceps tendinosis 3. Mild AC joint osteoarthrosis. 4. 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 Signed by: Delores Anderson 07/31/2024 9:48 AM Dictation workstation: [id number] MMODAL Interpreted By: Delores Raya, STUDY: MRI of the right shoulder with out IV contrast INDICATION: Signs/Symptoms:limited ROM and pain COMPARISON: None. ACCESSION NUMBER(S): [id number] ORDERING CLINICIAN: CATRACHITA TERRY TECHNIQUE: Multiplanar multisequence MRI of the right shoulder was performed without intravenous contrast. FINDINGS: Acromioclavicular Joint: Mild AC joint osteoarthrosis with osteophytes and capsular distension. There is communication of the glenohumeral joint fluid with subacromial bursa secondary to full-thickness rotator cuff tear described below. Biceps Tendon: Mild intra-articular long head biceps tendinosis with mild thickening and increased intermediate fluid signal.. Rotator Cuff: Full-thickness full width supraspinatus tear from insertional footprint, retracted to the level of the humeral head vertex. Infraspinatus tendon is within normal limits. Teres minor and subscapularis tendons are within normal limits. Muscles: Normal signal intensity and volume. No evidence of muscular edema or atrophy. Labrum: Evaluation of labrum is limited due to lack of intraarticular contrast. Blunting of the superior glenoid labrum suggesting chronic degenerative labral tearing. Articular Cartilage: The articular cartilage of the glenoid and humeral head are intact. Bones: The marrow signal of the humeral head is within normal limits. No evidence acute fracture or contusion. Nerves: No evidence of mass effect in the region of the quadrilateral space or suprascapular nerve. Other: None. MMODAL Delores Anderson MD - 07/31/2024 Interpreted By: Delores Anderson, STUDY: MRI of the right shoulder with out IV contrast INDICATION: Signs/Symptoms:limited ROM and pain COMPARISON: None. ACCESSION NUMBER(S): [id number] ORDERING CLINICIAN: CATRACHITA TERRY TECHNIQUE: Multiplanar multisequence MRI of the right shoulder was performed without intravenous contrast. FINDINGS: Acromioclavicular Joint: Mild AC joint osteoarthrosis with osteophytes and capsular distension. There is communication of the glenohumeral joint fluid with subacromial bursa secondary to full-thickness rotator cuff tear described below. Biceps Tendon: Mild intra-articular long head biceps tendinosis with mild thickening and increased intermediate fluid signal.. Rotator Cuff: Full-thickness full width supraspinatus tear from insertional footprint, retracted to the level of the humeral head vertex. Infraspinatus tendon is within normal limits. Teres minor and subscapularis tendons are within normal limits. Muscles: Normal signal intensity and volume. No evidence of muscular edema or atrophy. Labrum: Evaluation of labrum is limited due to lack of intraarticular contrast. Blunting of the superior glenoid labrum suggesting chronic degenerative labral tearing. Articular Cartilage: The articular cartilage of the glenoid and humeral head are intact. Bones: The marrow signal of the humeral head is within normal limits. No evidence acute fracture or contusion. Nerves: No evidence of mass effect in the region of the quadrilateral space or suprascapular nerve. Other: None. IMPRESSION: 1. Full-thickness full width supraspinatus tear from insertional footprint, retracted to the level of the humeral head vertex 2. Mild intra-articular long head biceps tendinosis 3. Mild AC joint osteoarthrosis. 4. 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 Signed by: Delores Anderson 07/31/2024 9:48 AM Dictation workstation: [id number] [facility] Work Phone: Radiology Study observation (narrative) [facility] Work Phone: MR Shoulder - right WO contr astOrdered By: Delores Anderson on 07-31-2024 [facility] Work Phone: POINT OF CARE ULTRASOUND NO CHARGEon 07-15-2024 POINT OF CARE ULTRASOUND NO CHARGE These images are not reportable by radiology and will not be interpreted by Radiologists. Normal [facility] US Abdomenon 07-15-2024 These images are not reportable by radiology and will not be interpreted by Radiologists. IMAGING Orthopedic Visit Reporton Orthopedic Visit Report [facility] [address] [place] [address] OFFICE VISIT Date of Service: 07/09/24 MR#: [id number] Acct: [id number] Name: TABITHA FISH Rep #: [id number] : 1965 Provider: CHERRY owen Age/Sex: 58/F [place] [facility] [facility] [place]: Signed Intake Vital Signs 05/03/23 10:04 07/09/24 09:28 Height 5 ft 6 in 5 ft 6 in Weight: 146 lb 8 oz BMI 23.6 Intake Visit Reasons: RIGHT SHOULDER Chief Complaint: Right shoulder pain Accompanied by: Self Is patient in pain?: Yes Pain scale (1-10): 6 Allergies ketorolac (From Toradol) Allergy (Verified 07/09/24 09:29) Shortness of breath naproxen (From Naprosyn) Allergy (Verified 07/09/24 09:29) Shortness of breath ubrogepant (From Ubrelvy) Adverse Reaction (Verified 07/09/24 09:29) Sick Feeling Medications ???Medication ???Instructions ???Recorded ???Confirmed ???Type aspirin 81 mg chewable tablet 81 mg PO DAILY@0800 #30 tabs 09/1907/09/24 Rx albuterol sulfate 90 mcg/actuation 2 puff inhalation Q4H PRN PRN 07/09/24 Rx aerosol inhaler Cough #8.5 grams hqbqjyjqjn-baheyidsazqnv-dxa feine 1 cap PO TID PRN migraine headach e 01/06/21 07/09/24 Rx 50 mg-300 mg-40 mg capsule #20 caps (Fioricet) ondansetron 4 mg disintegrating 8 mg (2 x 4 mg) PO Q8H PRN PRN 07/09/24 Rx tablet Nausea #16 tabs omeprazole 40 mg capsule,delayed 40 mg PO DAILY 08/15/22 07/09/24 H istory release carvedilol 25 mg tablet 25 mg PO BID #180 tabs 09/03/23 Rx furosemide 40 mg tablet 40 mg PO DAILY #90 tabs 10/21/23 0 07/09/24 Rx sacubitril 49 mg-valsartan 51 mg 1 tab PO BID #180 tabs 11/19/23 Rx tablet (Entresto) dapagliflozin propanediol 10 mg 10 mg PO DAILY #90 TABLETS 4 07/09/24 Rx tablet (Farxiga) spironolactone 25 mg tablet 12.5 mg (1/2 x 25 mg) PO DAILY #15 04/27/24 07/09/24 Rx TABLETS Have you fallen in the past year?: No PFSH Medical History Chronic pain Pancreatitis Irregular heart beat Muscle spasm Acute low back pain Tobacco abuse counseling Preventative health care Colon cancer screening Panic disorder Generalized anxiety disorder Major depressive disorder, recurrent, moderate Depression Cervical cancer Left bundle branch block (LBBB) Nicotine dependence Non-ischemic cardiomyopathy History of non-ST elevation myocardial infarction (NSTEMI) (09/15/20) HFrEF (heart failure with reduced ejection fraction) (09/15/20) Essential (primary) hypertension History of cervical cancer History of pancreatitis Constipation COPD with asthma Obesity HLD (hyperlipidemia) Acute respiratory failure with hypoxia and hypercapnia (09/15/20) COPD (chronic obstructive pulmonary disease) Surgical History History of left heart catheterization (09/19/20) History of cholecystectomy H/O: hysterectomy Family History Mother Heart disease Hypertension Diabetes Father Heart disease Other Anxiety Asthma Social History household members: spouse Smoking Status: Former smoker alcohol intake: never substance use type: does not use what type of physical activity do you participate in: none HPI RIGHT SHOULDER Details: This documentation accurately reflects the service provided and the decisions made by me, Pavithra Maria, CASER-C 07/09/2416. Part of today???s visit was documented by Estelita Barahona MA, acting as scribe. TABITHA FISH is a 58 year old F here today for right shoulder pain. This has been going on for months. Patient noticed one day that her shoulder was hurting really bad. It feels like the joint is twisting. She does feel popping sometimes. Patient feels like her shoulder is out of place. The pain goes down to the elbow. Patient got an injection in April and it helped a lot. The right shoulder hurts so bad she can't brush her hair. When lifting her arm it feels like someone is pushing down on her arm. Shelton is a pleasant 58-year-old female presenting for evaluation of right shoulder pain, increased nighttime awakening and difficulty with range of motion and using it for tasks. Patient is known to me from a previous office setting. Patient had a cortisone injection in March 2020 for which she got good relief, however it has worn off. Patient states she was unable to attend PT due to difficulty coordinating schedule. Patient did see her PCP yesterday who recommended orthopedic follow-up and referred here. Patient notes interested in pursuing additional cortisone injection for symptom co (more content not included)... Normal [facility] Shoulder min 2 Viewson 07-09 Shoulder min 2 Views [facility] [address] [place], [place] [address] Shoulder min 2 Views MR#: [id number] Acct: [id number] Name: TABITHA FISH Rep #: [id number] : 1965 F 58 From: Christiano Boyd PCP: Care Physician,No Primary Status: DEP AMB Study: Shoulder min 2 Views Date of Exam: 07/09/24 Exam# [id number] Ordering Dr: Pavithra Maria EXAM: SHOULDER MIN 2 VIEWS CLINICAL HISTORY: R SHOULDER PAIN, NKI COMPARISON: None TECHNIQUE: Four view right shoulder FINDINGS: Downsloping acromion and narrowing of subacromial space suggesting impingement. MRI would confirm. Mild AC osteoarthritic change RAD/Shoulder min 2 Views IMPRESSION: Features suggesting impingement. No acute osseous abnormality. If persistent concern, consider MRI Reading Location: [id number] CC: CHERRY Maria; No Primary Care Physician Family Member Caretaker: Signed Normal [facility] POINT OF CARE ULTRASOUND NO CHARGEon 05-12-2024 POINT OF CARE ULTRASOUND NO CHARGE These images are not reportable by radiology and will not be interpreted by Radiologists. Normal [facility] US Abdomenon 05-12-2024 These images are not reportable by radiology and will not be interpreted by Radiologists. IMAGING CBC W Auto Differential pane l (Bld)on 04-21-2024 Basophils (Bld) [#/Vol] 0.04 10*3/uL Normal <0.11 [facility] Comment on above: Order Comment: Speci men Type: BLOOD SPECIMENOrdering Facility: [facility] Address: [address] [place] [address] Performed By: #### 5 7021-8 ####[facility] [place] LABCLIA [id number] [place] [id number] [place] Basophils/100 WBC (Bld) 0.4 % Normal [facility] Comment on above: Order Comment: Speci men Type: BLOOD SPECIMENOrdering Facility: [facility] Address: [address] [place] [address] Performed By: #### 5 7021-8 ####[facility] [place] LABCLIA [id number] [place] [address] [place] Differential cell count method Nom (Bld) Auto Normal [facility] Comment on above: Order Comment: Speci men Type: BLOOD SPECIMENOrdering Facility: [facility] Address: [address] [place] [address] Performed By: #### 5 7021-8 ####[facility] [place] LABCLIA [id number] [facility] [address] [place] Eosinophils (Bld) [#/Vol] 0.05 10*3/uL Normal <0.46 [facility] Comment on above: Order Comment: Speci men Type: BLOOD SPECIMENOrdering Facility: [facility] Address: [address] [place] [address] Performed By: #### 5 7021-8 ####[facility] [place] LABCLIA [id number] [place] [address] [facility] Eosinophils/100 WBC (Bld) 0.5 % Normal [facility] Comment on above: Order Comment: Speci men Type: BLOOD SPECIMENOrdering Facility: [facility] Address: [address] [place] [address] Performed By: #### 5 7021-8 ####[facility] [place] LABCLIA [id number] [place] [address] [facility] [place] Erythrocyte distribution width (RBC) [Ratio] 12.9 % Normal 11.5-15.0 [facility] Comment on above: Order Comment: Speci men Type: BLOOD SPECIMENOrdering Facility: [facility] Address: [address] [place] [address] Performed By: #### 5 7021-8 ####[facility] [place] LABCLIA [id number] [facility] [address] [facility] [place] Hematocrit (Bld) [Volume fraction] 49.0 % High 36.0-46.0 [facility] Comment on above: Order Comment: Speci men Type: BLOOD SPECIMENOrdering Facility: [facility] Address: [address] [place] [address] Performed By: #### 5 7021-8 ####[facility] [place] LABCLIA [id number] [place] [address] [facility] [place] Hemoglobin (Bld) [Mass/Vol] 16.2 g/dL High 11.5-15.5 [facility] Comment on above: Order Comment: Speci men Type: BLOOD SPECIMENOrdering Facility: [facility] Address: [address] [place] [address] Performed By: #### 5 7021-8 ####[facility] [place] LABCLIA [id number] [place] [address] [place] Immature granulocytes (Bld) [#/Vol] 10*3/uL Normal <0.10 [facility] Comment on above: Order Comment: Speci men Type: BLOOD SPECIMENOrdering Facility: [facility] Address: [address] [place] [address] Performed By: #### 5 7021-8 ####[facility] [place] LABCLIA [id number] [address] [place] Immature granulocytes/100 WBC (Bld) 0.1 % Normal [facility] Comment on above: Order Comment: Speci men Type: BLOOD SPECIMENOrdering Facility: [facility] Address: [address] [place] [address] Performed By: #### 5 7021-8 ####[facility] [place] LABCLIA [id number] [address] [place] Lymphocytes (Bld) [#/Vol] 3.71 10*3/uL Normal 1.00-4.00 [facility] Comment on above: Order Comment: Speci men Type: BLOOD SPECIMENOrdering Facility: [facility] Address: [address] [place] [address] Performed By: #### 5 7021-8 ####[facility] [place] LABCLIA [id number] [address] [place] Lymphocytes/100 WBC (Bld) 38.5 % Normal [facility] Comment on above: Order Comment: Speci men Type: BLOOD SPECIMENOrdering Facility: [facility] Address: [address] [place] [address] Performed By: #### 5 7021-8 ####[facility] LABCLIA [id number] [place] [address] [facility] MCH (RBC) [Entitic mass] 32.3 pg Normal 26.0-34.0 [facility] Comment on above: Order Comment: Speci men Type: BLOOD SPECIMENOrdering Facility: [facility] Address: [address] [place] [address] Performed By: #### 5 7021-8 ####[facility] LABCLIA [id number] [place], [place] [address] [place] [address] [place] MCHC (RBC) [Mass/Vol] 33.1 g/dL Normal 30.5-36.0 [facility] Comment on above: Order Comment: Speci men Type: BLOOD SPECIMENOrdering Facility: [facility] Address: [address] [place] [address] Performed By: #### 5 7021-8 ####[facility] LABCLIA [id number] [address] STATES OF [facility] MCV (RBC) [Entitic vol] 97.6 fL Normal 80.0-100.0 [facility] Comment on above: Order Comment: Speci men Type: BLOOD SPECIMENOrdering Facility: [facility] Address: [address] [place] [address] Performed By: #### 5 7021-8 ####[facility] LABCLIA [id number] [address] Monocytes (Bld) [#/Vol] 0.87 10*3/uL High <0.87 [facility] Comment on above: Order Comment: Speci men Type: BLOOD SPECIMENOrdering Facility: [facility] Address: [address] [place] [address] Performed By: #### 5 7021-8 ####[facility] LABCLIA [id number] [place] [id number] [facility] Monocytes/100 WBC (Bld) 9.0 % Normal [facility] Comment on above: Order Comment: Speci men Type: BLOOD SPECIMENOrdering Facility: [facility] Address: [address] [place] [address] Performed By: #### 5 7021-8 ####[facility] [place] LABCLIA [id number] [place] [address] [place] Neutrophils (Bld) [#/Vol] 4.95 10*3/uL Normal 1.45-7.50 [facility] Comment on above: Order Comment: Speci men Type: BLOOD SPECIMENOrdering Facility: [facility] Address: [address] [place] [address] Performed By: #### 5 7021-8 ####[facility] [place] LABCLIA [id number] [place] [address] [place] Neutrophils/100 WBC (Bld) 51.5 % Normal [facility] Comment on above: Order Comment: Speci men Type: BLOOD SPECIMENOrdering Facility: [facility] Address: [address] [place] [address] Performed By: #### 5 7021-8 ####[facility] [place] LABCLIA [id number] [place] [address] [place] Nucleated RBC (Bld) [#/Vol] Normal [facility] Comment on above: Order Comment: Speci men Type: BLOOD SPECIMENOrdering Facility: [facility] Address: [address] [place] [address] Performed By: #### 5 7021-8 ####[facility] [place] LABCLIA [id number] [place] [address] [place] Nucleated RBC/100 WBC (Bld) [Ratio] Normal [facility] Comment on above: Order Comment: Speci men Type: BLOOD SPECIMENOrdering Facility: [facility] Address: [address] [place] [address] Performed By: #### 5 7021-8 ####[facility] [place] LABCLIA [id number] [place] [address] [place] Platelet mean volume (Bld) [Entitic vol] 10.4 fL Normal 9.0-12.7 [facility] Comment on above: Order Comment: Speci men Type: BLOOD SPECIMENOrdering Facility: [facility] Address: [address] [place] [address] Performed By: #### 5 7021-8 ####[facility] LABCLIA [id number] [place] [address] [place] Platelets (Bld) [#/Vol] 231 10*3/uL Normal 150-400 [facility] Comment on above: Order Comment: Speci men Type: BLOOD SPECIMENOrdering Facility: [facility] Address: [address] [place] [address] Performed By: #### 5 7021-8 ####[facility] LABCLIA [id number] [place] [address] [place] [facility] RBC (Bld) [#/Vol] 5.02 10*6/uL Normal 3.90-5.20 [facility] Comment on above: Order Comment: Speci men Type: BLOOD SPECIMENOrdering Facility: [facility] Address: [address] [place] [address] Performed By: #### 5 7021-8 ####[facility] LABCLIA [id number] [place] [address] [place] WBC (Bld) [#/Vol] 9.63 10*3/uL Normal 3.70-11.00 [facility] Comment on above: Order Comment: Speci men Type: BLOOD SPECIMENOrdering Facility: [facility] Address: [address] [place] [address] Performed By: #### 5 7021-8 ####[facility] LABCLIA [id number] [place] [address] [facility] [place] CTA CHEST (NON GATED) W IVCO N PEon 04-21-2024 CTA CHEST (NON GATED) W IVCON PE * * *Final Report* * * DATE OF EXAM: Apr 21 2024 5:08PM [facility] 0564 - CTA CHEST (NON GATED) W MAYRA PE / PROCEDURE REASON: pleuritic chest pain, +d-dimer * * * * Physician Interpretation * * * * EXAMINATION: CHEST CTA (NON GATED) WITH CONTRAST (PULMONARY EMBOLISM PROTOCOL) Clinical History: Chest pain and shortness of breath; evaluate for pulmonary embolus Technique: Spiral CT acquisition of the chest from the thoracic inlet to the upper abdomen following IV contrast. Axial 1 and 3 mm thick slices plus coronal and sagittal reformatted images. MQ: CTCP_5 Contrast: 100 mL Omnipaque [address] Radiation dose: Integrated Dose-length product (DLP) for this visit = 346.86 mGy*cm CT Dose Reduction Employed: Automated exposure control(AEC) and iterative recon CTA: Post-processed images {Maximum intensity Projection (MIP), Volume-rendered (VR), or Surface shaded display images (SSD)} were created, reviewed and archived. Comparison: CT chest May 2022 RESULT: Limitations: None. Evaluation for thromboembolic disease: - Right heart chambers: No thromboembolic disease. - Main pulmonary arteries: No thromboembolic disease. - Lobar pulmonary arteries: No thromboembolic disease. - Segmental pulmonary arteries: No thromboembolic disease. - Subsegmental pulmonary arteries: No thromboembolic disease. - Additional pulmonary artery findings: The main pulmonary artery is normal in caliber. Lines, tubes, and devices: None. Lung parenchyma and airways: Lungs are severely emphysematous. Minimal atelectasis within the right middle lobe. No suspicious nodule or mass. Pleural space: No pleural effusion. No pleural thickening. Lower neck, lymph nodes, and mediastinum: The imaged thyroid gland is normal. No lymphadenopathy in the supraclavicular, axillary, mediastinal, or hilar regions. Heart, pericardium, and thoracic vessels: Heart is normal in size. No pericardial effusion. Thoracic aorta is normal in caliber. Bones and soft tissues: No destructive bone lesion. Chest wall is unremarkable. Upper abdomen: No abnormality in the imaged upper abdomen. Localizer images: IMPRESSION: 1. No acute intrathoracic abnormality is seen. No evidence of acute pulmonary embolus. 2. Emphysema Family Member Caretaker: OSCAR Transcribe Date/Time: Apr 21 2024 5:37P Dictated by : ELLYN BINGHAM MD This examination was interpreted and the report reviewed and electronically signed by: ELLYN BINGHAM MD on Apr 21 2024 5:43PM EST [id number] Normal [facility] Comprehensive metabolic 2000 panelon 04-21-2024 Albumin [Mass/Vol] 4.4 g/dL Normal 3.9-4.9 [facility] Comment on above: Order Comment: Speci men Type: BLOOD SPECIMENOrdering Facility: [facility] Address: [address] [place] [address] Performed By: #### 2 4323-8 ####[facility] [place] LABCLIA [id number] [facility] [address] [place] [facility] ALP [Catalytic activity/Vol] 81 U/L Normal 34-123 [facility] Comment on above: Order Comment: Speci men Type: BLOOD SPECIMENOrdering Facility: [facility] Address: [address] [place] [address] Performed By: #### 2 4323-8 ####[facility] [place] LABCLIA [id number] [place] [address] [place] [facility] ALT With P-5'-P [Catalytic activity/Vol] 11 U/L Normal 7-38 [facility] Comment on above: Order Comment: Speci men Type: BLOOD SPECIMENOrdering Facility: [facility] Address: [address] [place] [address] Performed By: #### 2 4323-8 ####[facility] [place] LABCLIA [id number] [place] [address] [place] [facility] Anion gap [Moles/Vol] 14 mmol/L Normal 8-15 [facility] Comment on above: Order Comment: Speci men Type: BLOOD SPECIMENOrdering Facility: [facility] Address: [address] [place] [address] Performed By: #### 2 4323-8 ####[facility] [place] LABCLIA [id number] [facility] [address] [place] AST With P-5'-P [Catalytic activity/Vol] 15 U/L Normal 13-35 [facility] Comment on above: Order Comment: Speci men Type: BLOOD SPECIMENOrdering Facility: [facility] Address: [address] [place] [address] Performed By: #### 2 4323-8 ####[facility] [place] LABCLIA [id number] [place] [address] [place] Bilirubin [Mass/Vol] 0.3 mg/dL Normal 0.2-1.3 [facility] Comment on above: Order Comment: Speci men Type: BLOOD SPECIMENOrdering Facility: [facility] Address: [address] [place] [address] Performed By: #### 2 4323-8 ####[facility] [place] LABCLIA [id number] [place] [address] [place] Calcium [Mass/Vol] 9.4 mg/dL Normal 8.5-10.2 [facility] Comment on above: Order Comment: Speci men Type: BLOOD SPECIMENOrdering Facility: [facility] Address: [address] [place] [address] Performed By: #### 2 4323-8 ####[facility] [place] LABCLIA [id number] [place] [facility] [address] [place] Chloride [Moles/Vol] 97 mmol/L Low 98-107 [facility] Comment on above: Order Comment: Speci men Type: BLOOD SPECIMENOrdering Facility: [facility] Address: [address] [place] [address] Performed By: #### 2 4323-8 ####[facility] [place] LABCLIA [id number] [place] [address] [place] CO2 [Moles/Vol] 24 mmol/L Normal 22-30 [facility] Comment on above: Order Comment: Speci men Type: BLOOD SPECIMENOrdering Facility: [facility] Address: [address] [place] [address] Performed By: #### 2 4323-8 ####[facility] [place] LABCLIA [id number] [place] [address] [place] Creatinine [Mass/Vol] 0.89 mg/dL Normal 0.58-0.96 [facility] Comment on above: Order Comment: Fany lee Type: BLOOD SPECIMENOrdering Facility: [facility] Address: [address] [place] [address] Performed By: #### 2 4323-8 ####[facility] LABCLIA [id number] [place] [address] [facility] Creatinine and Glomerular filtration rate.predicted panel (S/P/Bld) 76 mL/min/1.73m??? Normal >=60 [facility] Comment on above: Order Comment: Fany lee Type: BLOOD SPECIMENOrdering Facility: [facility] Address: [address] [place] [address] Result Comment: Verónica mated Glomerular Filtration Rate (eGFR) is calculated using the 2020 CKD-EPI creatinine equation. This equation utilizes serum creatinine, sex, and age as parameters. The creatinine assay has traceable calibration to isotope dilution-mass spectrometry. Refer to KDIGO guidelines for clinical interpretation. In patients with unstable renal function, e.g. those with acute kidney injury, the eGFR may not accurately reflect actual GFR. Performed By: #### 2 4323-8 ####[facility] LABIA [id number] [place] [address] [place] Glucose [Mass/Vol] 100 mg/dL High 74-99 [facility] Comment on above: Order Comment: Fany lee Type: BLOOD SPECIMENOrdering Facility: [facility] Address: [address] [place] [address] Result Comment: The [place] Diabetes Association (ADA) provides guidance for cutoff values for fasting glucose and random glucose. The ADA defines fasting as no caloric intake for at least 8 hours. Fasting plasma glucose results between 100 to 125 mg/dL indicate increased risk for diabetes (prediabetes). Fasting plasma glucose results greater than or equal to 126 mg/dL meet the criteria for diagnosis of diabetes. In the absence of unequivocal hyperglycemia, results should be confirmed by repeat testing. In a patient with classic symptoms of hyperglycemia or hyperglycemic crisis, random plasma glucose results greater than or equal to 200 mg/dL meet the criteria for diagnosis of diabetes. Reference: Standards of Medical Care in Diabetes 2016, [place] [employer] Association. Diabetes Care. 2016.39(Suppl 1). Performed By: #### 2 4323-8 ####[facility] [place] LABCLIA [id number] [facility] [address] [place] Potassium [Moles/Vol] 4.3 mmol/L Normal 3.7-5.1 [facility] Comment on above: Order Comment: Speci men Type: BLOOD SPECIMENOrdering Facility: [facility] Address: [address] [place] [address] Performed By: #### 2 4323-8 ####[facility] [place] LABCLIA [id number] [place] [address] [place] Protein [Mass/Vol] 7.5 g/dL Normal 6.3-8.0 [facility] Comment on above: Order Comment: Speci men Type: BLOOD SPECIMENOrdering Facility: [facility] Address: [address] [place] [address] Performed By: #### 2 4323-8 ####[facility] LABCLIA [id number] [facility] [address] [place] Sodium [Moles/Vol] 135 mmol/L Low 136-144 [facility] Comment on above: Order Comment: Speci men Type: BLOOD SPECIMENOrdering Facility: [facility] Address: [address] [place] [address] Performed By: #### 2 4323-8 ####[facility] [place] LABCLIA [id number] [facility] [address] [place] Urea nitrogen [Mass/Vol] 12 mg/dL Normal 7-21 [facility] Comment on above: Order Comment: Speci men Type: BLOOD SPECIMENOrdering Facility: [facility] Address: [address] [place] [address] Performed By: #### 2 4323-8 ####[facility] [place] LABCLIA [id number] [facility] [address] [place] D dimer FEU [facility]-ncon 04-21 Fibrin D-dimer FEU (PPP) [Mass/Vol] 630 ng/mL FEU High <500 [facility] Comment on above: Order Comment: Speci men Type: BLOOD SPECIMENOrdering Facility: [facility] Address: [address] [place] [address] Performed By: #### 4 8065-7 ####[facility] [place] LABCLIA [id number] [place] [address] [facility] ECG COMPLETEon 04-21-2024 ECG COMPLETE Ventricular Rate : 7 1 BPM Atrial Rate : 71 BPM P-R Interval : 168 ms QRS Duration : 140 ms Q-T Interval : 442 ms QTC Calculation(Bazett) : 480 ms Calculated P [place] : 86 degrees Calculated R [place] : 89 degrees Calculated T [place] : 91 degrees NORMAL SINUS RHYTHM NON-SPECIFIC INTRA-VENTRICULAR CONDUCTION BLOCK ABNORMAL ECG NO PREVIOUS ECGS AVAILABLE Confirmed by MD PRIEST VINAYAK ([id number]) on 04/22/2024 12:45:56 PM NAME : TABITHA FISH PID : [id number] : 1965 Gender : Female Race : ORD : [id number] Procedure Date : Apr 21 2024 16:06:00 Edit Date : Apr 22 2024 12:45:57 Diagnosis: NORMAL SINUS RHYTHM NON-SPECIFIC INTRA-VENTRICULAR CONDUCTION BLOCK ABNORMAL ECG NO PREVIOUS ECGS AVAILABLE Confirmed by MD PRIEST VINAYAK ([id number]) on 04/22/2024 12:45:56 PM Test Reason : Chest Pain Location : 191 : [facility] ED Overread By : MD PRIEST VINAYAK Edited By : MD PRIEST VINAYAK Referred By : , Acquired by : LINNEA CARR [facility] ED NOTEon 04-21-2024 ED NOTE HNO ID: [id number] Author: DEVI WILSON, RN Service: Nursing Author Type: Registered Nurse Type: ED Notes Filed: 04/21/2024 18:19 Note Text: Patient leaves pleasant and cooperative, alert and oriented x 3 with regular and easy respirations. Discharge instructions discussed. There are no additional questions for the provider. Medications discussed with patients verbal understanding of purpose and potential side effects. Will follow up as directed or return to ED for worsening or life threatening symptoms. Normal [facility] ED NOTE HNO ID: [id number] Author: DEVI WILSON RN Service: Nursing Author Type: Registered Nurse Type: ED Notes Filed: 04/21/2024 16:04 Note Text: Respiratory at bedside for nebulizer tx and EKG Normal [facility] ED NOTE HNO ID: [id number] Author: DEVI WILSON RN Service: Nursing Author Type: Registered Nurse Type: ED Notes Filed: 04/21/2024 15:47 Note Text: Patient reports dry cough x 1 week. Dyspnea with chills started past couple days. Normal [facility] ED NOTE HNO ID: [id number] Author: MATTHIAS LEWIS RN Service: ? Author Type: Registered Nurse Type: ED Notes Filed: 04/21/2024 15:29 Note Text: Pt reports a cough for about a week pt is now having sharp pain in her ribs and neck with a deep breath. Pt has had pleurisy in the past and believes that is what is going on now. Normal [facility] ED PROV NOTEon 04-21-2024 ED PROV NOTE HNO ID: [id number] Author: ROSALINE DOE MD Service: Emergency Medicine Author Type: Physician Type: ED Provider Notes Filed: 04/21/2024 18:29 Note Text: ED Provider Note Patient Name: Tabitha Fish : 1965 SERVICE DATE: 04/21/24 History Patient presents with: Cough Chest Pain This is a 58 year old female presenting with cough and pleuritic chest pain. She has a history of COPD, uses spireva. Her cough is slightly more than usual but not severely. She states her front chest hurts with coughing and with deep breathing. She denies actual shortness of breath above baseline. She is not on home 02. No edema. No calf pain. No history of VTE. No recent travel or hospitalizations or medical procedures/surgeries. She states she has had pleurisy before and it feels similar. No fevers or chills. No vomiting or abdominal pain. PAST MEDICAL HISTORY Diagnosis Date Chronic obstructive pulmonary disease (COPD) (HCC) Coronary artery disease Heart attack (HCC) Migraine Pancreatitis PAST SURGICAL HISTORY Procedure Laterality Date CHOLECYSTECTOMY HX 1999 HYSTERECTOMY HX 1998 still has ovaries FAMILY HISTORY Problem Relation Age of Onset Diabetes Mother Hypertension Father Diabetes Father Colon Cancer Father Dementia Father Alzheimer's Disease Father Cancer Brother lung Heart Attack Maternal Grandmother 70 Cancer Paternal Grandmother Cancer Paternal Grandfather Social History Tobacco Use Smoking status: Every Day Current packs/day: 0.50 Average packs/day: 0.5 packs/day for 43.0 years (21.5 ttl pk-yrs) Types: Cigarettes Start date: 1981 Smokeless tobacco: Never Vaping Use Vaping status: Never Used Substance and Sexual Activity Alcohol use: Never Drug use: Never Sexual activity: Not on file ALLERGIES Allergen Reactions Aspirin Anaphylaxis Benadryl [Diphenhyd* Hives Buspar [Buspirone] Intolerance Naproxen Anaphylaxis Toradol [Ketorolac] Hives Ubrelvy [Ubrogepant] Shortness of Breath Review of Systems Physical Exam Vitals [04/21/24 1524] BP Pulse Temp Temp src Resp SpO2 Weight Height 124/88 81 36.2 ?C (97.2 ?F) Temporal Art 18 99 % 66.7 kg (147 lb) 1.702 m (5' 7) Physical Exam Constitutional: Appearance: She is well-developed. She is not ill-appearing. HENT: Head: Normocephalic and atraumatic. Eyes: Extraocular Movements: Extraocular movements intact. Pupils: Pupils are equal, round, and reactive to light. Neck: Vascular: No JVD. Cardiovascular: Rate and Rhythm: Normal rate and regular rhythm. Pulses: Radial pulses are 2+ on the right side and 2+ on the left side. Dorsalis pedis pulses are 2+ on the right side and 2+ on the left side. Posterior tibial pulses are 2+ on the right side and 2+ on the left side. Heart sounds: Normal heart sounds. No murmur heard. No friction rub. No gallop. Pulmonary: Effort: No tachypnea. Breath sounds: No rhonchi or rales. Comments: Distant breath sounds bilaterally initially. After duoneb slight wheezing noted bilaterally with improved air movement. Chest: Chest wall: No crepitus or edema. Abdominal: Palpations: Abdomen is soft. There is no mass. Tenderness: There is no abdominal tenderness. Musculoskeletal: Right lower leg: No tenderness. No edema. Left lower leg: No tenderness. No edema. Lymphadenopathy: Cervical: No cervical adenopathy. Skin: General: Skin is warm and dry. Capillary Refill: Capillary refill takes less than 2 seconds. Findings: No rash. Nails: There is no clubbing. Neurological: General: No focal deficit present. Mental Status: She is alert. Diagnostic Testing ED Labs Ordered and Reviewed COMPREHENSIVE METABOLIC PANEL - Abnormal; Notable for the following components: Result Value Ref Range Glucose 100 (*) 74 - 99 mg/dL Sodium 135 (*) 136 - 144 mmol/L Chloride 97 (*) 98 - 107 mmol/L All other components within normal limits D-DIMER - Abnormal; Notable for the following components: D Dimer 630 (*) <500 ng/mL FEU All other components within normal limits Narrative: 500 ng/mL FEU is the D Dimer cutoff to exclude DVT (deep vein thrombosis) and PE (pulmonary embolism) in patients with a low pre test probability. Supplemental Comment: In patients over 50 years with a low pre test probability for DVT and/or PE, an age adjusted D dimer cutoff can be calculated as [age x 10] ng/mL FEU. For example, a patient of 88 years would have an age adjusted D dimer cutoff of 880 ng/mL FEU. For patients with a suspected DVT, a D dimer level below 500 ng/mL FEU has a negative predictive value of >98.9%, a sensitivity of >96.9% and a specificity of >35.7%. For patients with a suspected PE, a D dimer level below 500 ng/mL FEU has a negative predictive value of >98.5%, and a sensitivity of >96.5% and a specificity of >38.8%. Reference: Blaine M, et al. LEAH 2014 311:1117 and Gunner Blum et al. Jenny Int Me (more content not included)... Normal [facility] Fibrin D-dimer FEU (PPP) [Ma ss/Vol]on 04-21-2024 D DIMER AGE-RELATED CUTOFF 570 ng/mL FEU Normal [facility] Comment on above: Order Comment: Speci men Type: BLOOD SPECIMENOrdering Facility: [facility] Address: [address] [place] [address] Performed By: #### 4 8065-7 ####[facility] LABCLIA [id number] [place] [address] [facility] HIGH SENSITIVITY TROPONIN T (INITIAL)on 04-21-2024 Troponin T.cardiac High sensitivity method [Mass/Vol] 7 ng/L Normal <12 [facility] Comment on above: Order Comment: Speci men Type: BLOOD SPECIMENOrdering Facility: [facility] Address: [address] [place] [address] Performed By: #### L [id number] ####[facility] LABCLIA [id number] [place] [address] [facility] HIGH SENSITIVITY TROPONIN T (SECOND)on 04-21-2024 Troponin T.cardiac High sensitivity method [Mass/Vol] 6 ng/L Normal <12 [facility] Comment on above: Order Comment: Speci men Type: BLOOD SPECIMENOrdering Facility: [facility] Address: [address] [place] [address] Performed By: #### L [id number] ####[facility] LABCLIA [id number] [place] [address] [facility] XR CHEST 1V FRONTALon 2023 XR CHEST 1V FRONTAL * * *Final Report* * * DATE OF EXAM: Apr 21 2024 4:18PM LDX 5290 - XR CHEST 1V FRONTAL / PROCEDURE REASON: Cough * * * * Physician Interpretation * * * * EXAMINATION: CHEST RADIOGRAPH (SINGLE VIEW AP OR PA) CLINICAL HISTORY: Cough, Chest pain MQ: XC1_5 Comparison: Radiograph 12/24/2022 RESULT: Lines, tubes, and devices: None. Lungs and pleura: No consolidation. No lung mass. No pleural effusion. Lungs appear emphysematous. Cardiomediastinal silhouette: Normal cardiomediastinal silhouette. Other: . IMPRESSION: No acute radiographic abnormality. Family Member Caretaker: OSCAR Transcribe Date/Time: Apr 21 2024 4:29P Dictated by : ELLYN BINGHAM MD This examination was interpreted and the report reviewed and electronically signed by: ELLYN BINGHAM MD on Apr 21 2024 4:30PM EST [id number] Normal [facility] L Inj/Asp: R subacromial bur saon 04-03-2024 MELISSA Hess RN-BALANCE RECESSER 04/03/2024 3:51 PM L Inj/Asp: R subacromial bursa on 04/03/2024 3:49 PM Indications: pain and joint swelling Details: 22 G needle, posterior approach Medications: 40 mg triamcinolone acetonide 40 mg/mL Outcome: tolerated well, no immediate complications We discussed risk and benefits of cortisone injection, patient wishes to proceed via verbal consent. Skin was prepped with Betadine, Vapocoolant spray and alcohol. Direct visualization using high-frequency linear probe of ultrasound was utilized to administer the injection of 40 mg Kenalog, 3 cc 2% lidocaine and 3 cc of bupivacaine. Patient tolerated injection well lidocaine suppression. No bleeding postinjection, bandage to site. Images were saved under MRN number into the PACS system. Procedure, treatment alternatives, risks and benefits explained, specific risks discussed. Consent was given by the patient. Immediately prior to procedure a time out was called to verify the correct patient, procedure, equipment, sales support consultant and site/side marked as required. Patient was prepped and draped in the usual sterile fashion. [facility] Work Phone: [facility] Work Phone: ED Prov Noteon 01-07-2024 ED Prov Note HPI: 01/07/2024, Time: @NOWK[place]@ Tabitha Abe is a 58 y.o. female presenting to the ED for gradual onset of right shoulder pain and dysfunction, beginning over the last few months ago. The complaint has been constant, moderate in severity, and worsened by changing position. And use of left arm. 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 Does not recall particular injury. ROS: Pertinent positives and negatives are stated within HPI, all other systems reviewed and are negative. PAST HISTORY Past Medical History: @[facility]@ Past Surgical History: has a past surgical history that includes Cholecystectomy; Hysterectomy; Cardiac surgery; and CT Colonoscopy (06/04/2022). Social History: reports that she has been smoking cigarettes. She has never used smokeless tobacco. She reports that she does not drink alcohol and does not use drugs. Family History: family history is not on file. The patient's home medications have been reviewed. Allergies: Aspirin, Naproxen, Buspirone, Diphenhydramine hcl, and Ketorolac RESULTS All laboratory and radiology results have been personally reviewed by myself LABS: Results for orders placed or performed during the hospital encounter of 08/19/22 POC CBC and Differential Result Value Ref Range WBC 9.69 4.50 - 11.00 K/mcL RBC 4.36 4.00 - 5.20 M/mcL Hemoglobin 14.0 12.0 - 16.0 g/dL Hematocrit 40.8 36.0 - 46.0 % MCV 93.6 80.0 - 100.0 fL MCH 32.1 26.0 - 34.0 pg MCHC 34.3 31.0 - 37.0 g/dL RDW - CV 12.5 11.6 - 14.8 % Platelets 316 150 - 400 K/mcL MPV 10.2 9.4 - 12.4 fL Neutrophils 51.9 % Lymphocytes 36.6 % Monocytes 10.1 % Eosinophils 0.9 % Basophils 0.4 % IG Percent 0.10 % Neutrophils Abs 5.02 1.70 - 7.00 K/mcL Lymphocytes Abs 3.55 0.90 - 4.00 K/mcL Monocytes Abs 0.98 (H) 0.30 - 0.90 K/mcL Eosinophils Abs 0.09 0.00 - 0.50 K/mcL Basophils Abs 0.04 0.00 - 0.30 K/mcL IG Absolute 0.01 0.00 - 0.30 K/mcL Troponin Once Result Value Ref Range Troponin I 6 <=59 ng/L Troponin I Interpretation Normal COVID-19, Molecular Specimen: Nasal; Swab Result Value Ref Range SARS-CoV-2 Not Detected Not Detected EKG 12-lead Result Value Ref Range Ventricular Rate 66 BPM Atrial Rate 66 BPM P-R Interval 164 ms QRS Duration 82 ms Q-T Interval 470 ms QTC Calculation ([place]) 492 ms P [place] 109 degrees R [place] 85 degrees T [place] 93 degrees EKG 12-lead Result Value Ref Range Ventricular Rate 59 BPM Atrial Rate 59 BPM P-R Interval 174 ms QRS Duration 78 ms Q-T Interval 476 ms QTC Calculation ([place]) 471 ms P [place] 73 degrees R [place] 85 degrees T [place] 100 degrees POC Basic Metabolic Panel Result Value Ref Range Glucose 120 (H) 65 - 99 mg/dL BUN 8 8 - 25 mg/dL Creatinine 0.67 0.40 - 1.10 mg/dL GFR 103 >=60 mL/min/1.73 m2 Sodium 141 135 - 145 mmol/L Potassium 3.1 (L) 3.5 - 5.1 mmol/L Chloride 105 98 - 108 mmol/L TCO2 25 21 - 32 mmol/L Ionized Calcium 4.5 4.5 - 5.3 mg/dL POC B-type natriuretic peptide (BNP) Result Value Ref Range BNP 59.7 <100 pg/mL POC D-dimer Result Value Ref Range POC D-Dimer 566 (H) <350 ng/mL DDU POC Influenza A/B Result Value Ref Range POC Rapid Influenza A Ag Not Detected Not Detected POC Influenza B Ag Not Detected Not Detected RADIOLOGY: Interpreted by Radiologist. No orders to display NURSING NOTES AND VITALS REVIEWED The nursing notes within the ED encounter and vital signs as below have been reviewed. BP (!) 153/97 (BP Location: Left arm, Patient Position: Sitting) Pulse 69 Temp 97.4 degrees F (36.3 degrees C) (Temporal) Resp 18 Ht 5' 6 Wt 70.8 kg (156 lb) SpO2 96% BMI 25.18 kg/m Oxygen Saturation Interpretation: Normal PHYSI DEVEN EXAM Constitutional/General: Alert and oriented x3, well appearing, non toxic in NAD Head: NC/AT Eyes: PERRL, EOMI Mouth: Oropharynx clear, handling secretions, no trismus Neck: Supple, full ROM, no meningeal signs Pulmonary: Lungs clear to auscultation bilaterally, no wheezes, rales, or rhonchi. Not in respiratory distress Cardiovascular: Regular rate and rhythm, no murmurs, gallops, or rubs. 2+ distal pulses Abdomen: Soft, non tender, non distended, Extremities: Moves all extremities x 4. Warm and well perfused, right shoulder: Moderate subacromial tenderness to palpation and tenderness much worse with range of motion and unable to fully abduct arm Skin: warm and dry without rash Neurologic: GCS 15, Psych: Normal Affect -- ED COURSE/MEDICAL DECISION MAKING Medications - No data to display Medical Decision Making: Suspe (more content not included)... [facility] ED NOTEon 12-18-2023 ED NOTE HNO ID: [id number] Author: DEVI WILSON, RN Service: Nursing Author Type: Registered Nurse Type: ED Notes Filed: 12/18/2023 13:41 Note Text: Patient leaves pleasant and cooperative, alert and oriented x 3 with regular and easy respirations. Discharge instructions discussed. There are no additional questions for the provider. Medications discussed with patients verbal understanding of purpose and potential side effects. Will follow up as directed or return to ED for worsening or life threatening symptoms. [facility] ED NOTE HNO ID: [id number] Author: DEVI WILSON, RN Service: Nursing Author Type: Registered Nurse Type: ED Notes Filed: 12/18/2023 12:40 Note Text: Right shoulder pain x 1 month with no reported injury. She denies a change in her activity. No new exercise routine or recent lifting. She has continuous pain that is aggravated and worsened with movement. Tylenol and ibuprofen have been used and only dulls the pain. Patient believes it is likely arthritis but the pain has limited her ROM and is affecting her ADL's. Denies fever, n/v or chest pain. Normal [facility] ED PROV NOTEon 12-18-2023 ED PROV NOTE HNO ID: [id number] Author: WINDY SANTIZO DO Service: Emergency Medicine Author Type: Physician Type: ED Provider Notes Filed: 12/18/2023 14:15 Note Text: ED Provider Note Patient Name: Tabitha Fish : 1965 SERVICE DATE: 12/18/23 History Patient presents with: Pain (Shoulder Pain) Tabitha Fish is a 58 year old female with history of multiple chronic medical problems who presents with Pain (Shoulder Pain). - Symptoms began 1 month ago. - Severity: moderate - Timing: constant - Quality: sore - Pain (Shoulder Pain) is exacerbated by movement and palpation. - Pain (Shoulder Pain) is not exacerbated by rest. - Symptoms are associated with right shoulder pain with movement. - Symptoms are not associated with chest pain, chills, fever, nausea, rash, shortness of breath, vomiting, trauma, shoulder swelling, headache, neck pain, right elbow pain, numbness. Patient presents with right shoulder pain for 1 month. She states her right shoulder hurts with movement. She states that there was no injury. She states that there has been no swelling or redness to the shoulder. No fever or chills. No chest pain or shortness of breath. No neck pain, headache, numbness or weakness. No right elbow pain. She states she has been alternating ibuprofen and Tylenol for pain. PAST MEDICAL HISTORY No date: Chronic obstructive pulmonary disease (COPD) (HCC) No date: Coronary artery disease No date: Heart attack (HCC) No date: Migraine No date: Pancreatitis PAST SURGICAL HISTORY 1999: CHOLECYSTECTOMY HX 1998: HYSTERECTOMY HX Comment: still has ovaries FAMILY HISTORY Problem Relation Age of Onset Diabetes Mother Hypertension Father Diabetes Father Colon Cancer Father Dementia Father Alzheimer's Disease Father Cancer Brother lung Heart Attack Maternal Grandmother 70 Cancer Paternal Grandmother Cancer Paternal Grandfather Social History Tobacco Use Smoking status: Every Day Current packs/day: 0.50 Average packs/day: 0.5 packs/day for 42.6 years (21.3 ttl pk-yrs) Types: Cigarettes Start date: 1981 Smokeless tobacco: Never Vaping Use Vaping status: Never Used Substance and Sexual Activity Alcohol use: Never Drug use: Never Sexual activity: Not on file ALLERGIES Allergen Reactions Aspirin Anaphylaxis Benadryl [Diphenhyd* Hives Buspar [Buspirone] Intolerance Naproxen Anaphylaxis Toradol [Ketorolac] Hives Ubrelvy [Ubrogepant] Shortness of Breath Review of Systems Constitutional: Negative for chills and fever. HENT: Negative for facial swelling and trouble swallowing. Eyes: Negative for visual disturbance. Respiratory: Negative for shortness of breath. Cardiovascular: Negative for chest pain. Gastrointestinal: Negative for abdominal pain, nausea and vomiting. Genitourinary: Negative for flank pain. Musculoskeletal: Positive for arthralgias (Right shoulder). Negative for back pain, joint swelling, neck pain and neck stiffness. Neurological: Negative for syncope, weakness, numbness and headaches. Psychiatric/Behavioral: Negative for agitation and confusion. Physical Exam Vitals [12/18/23 1227] BP Pulse Temp Temp src Resp SpO2 Weight Height 140/60 77 36.6 ?C (97.8 ?F) Temporal Art 16 97 % 69.9 kg (154 lb) -- Physical Exam Vitals and nursing note reviewed. Constitutional: Appearance: She is not toxic-appearing or diaphoretic. HENT: Head: Normocephalic and atraumatic. Mouth/Throat: Mouth: Mucous membranes are moist. Eyes: Conjunctiva/sclera: Conjunctivae normal. Cardiovascular: Rate and Rhythm: Normal rate and regular rhythm. Pulses: Normal pulses. Pulmonary: Effort: Pulmonary effort is normal. Breath sounds: Normal breath sounds. Musculoskeletal: Right shoulder: Tenderness present. No swelling, deformity, effusion, laceration or crepitus. Decreased range of motion. Right elbow: No swelling, deformity, effusion or lacerations. Normal range of motion. No tenderness. Right wrist: No swelling, lacerations, tenderness, bony tenderness, snuff box tenderness or crepitus. Normal range of motion. Normal pulse. Right hand: No swelling, lacerations, tenderness or bony tenderness. Normal range of motion. Normal strength. Normal sensation. Normal capillary refill. Normal pulse. Cervical back: No swelling, edema, deformity, erythema, signs of trauma, rigidity, tenderness or bony tenderness. Normal range of motion. Skin: General: Skin is warm and dry. Capillary Refill: Capillary refill takes less than 2 seconds. Neurological: General: No focal deficit present. Mental Status: She is alert and oriented to person, place, and time. GCS: GCS eye subscore is 4. GCS verbal subscore is 5. GCS motor subscore is 6. Psychiatric: Mood and Affect: Mood normal. Behavior: Behavior normal. Diagnostic Testing ED Labs Ordered and Reviewed - No data to display Procedures ED Course / Cl (more content not included)... Normal [facility] XR SHLDR >/=3V AP/C[place] AP/OTH R RTon 12-18-2023 XR SHLDR >/=3V AP/C[place] AP/OTHR RT * * *Final Report* * * DATE OF EXAM: Dec 18 2023 1:03PM LDX 5253 - XR SHLDR >/=3V AP/C[place] AP/OTHR RT / PROCEDURE REASON: Other * * * * Physician Interpretation * * * * XR SHLDR >/=3V AP/C[place] AP/OTHR RT HISTORY: 58 years old Clinical information: Other Patient states right shoulder pain for about a month without known injury. TECHNIQUE: Images: XR SHLDR >/=3V AP/C[place] AP/OTHR RT Comparison: 08/04/2018. RESULT: Visualized right hemithorax is unremarkable No fractures or dislocations are seen. IMPRESSION: No acute or subacute osseous abnormalities Family Member Caretaker: OSCAR Transcribe Date/Time: Dec 18 2023 1:22P Dictated by : NICHOLAS SEWELL MD This examination was interpreted and the report reviewed and electronically signed by: NICHOLAS SEWELL MD on Dec 18 2023 1:22PM EST [id number] Normal [facility] CBC AND DIFFERENTIALon 08-21 % AUTOMATED IMMATURE GRAN 0.3 % Normal 0.0 - 0.9 [facility] Comment on above: Result Comment: Marilee ture Granulocyte Count (IG) includes promyelocytes, myelocytes and metamyelocytes but does not include bands. Percent differential counts (%) should be interpreted in the context of the absolute cell counts (cells/L). Performed By: #### C BCDF #### [place] [id number] Basophils (Bld) [#/Vol] 0.06 10*3/uL Normal 0.00 - 0.10 [facility] Comment on above: Performed By: #### C BCDF #### [place] [id number] Basophils/100 WBC (Bld) 0.8 % Normal 0.0 - 2.0 [facility] Comment on above: Performed By: #### C BCDF #### [place] [id number] Eosinophils (Bld) [#/Vol] 0.13 10*3/uL Normal 0.00 - 0.70 [facility] Comment on above: Performed By: #### C BCDF #### [address] [address] Eosinophils/100 WBC (Bld) 1.7 % Normal 0.0 - 6.0 [facility] Comment on above: Performed By: #### C BCDF #### [address] [address] Erythrocyte distribution width (RBC) [Ratio] 12.5 % Normal 11.5 - 14.5 [facility] Comment on above: Performed By: #### C BCDF #### [place] [id number] Hematocrit (Bld) [Volume fraction] 38.2 % Normal 36.0 - 46.0 [facility] Comment on above: Performed By: #### C BCDF #### [address] [address] Hemoglobin (Bld) [Mass/Vol] 12.7 g/dL Normal 12.0 - 16.0 [facility] Comment on above: Performed By: #### C BCDF #### [address] [address] Lymphocytes (Bld) [#/Vol] 2.95 10*3/uL Normal 1.20 - 4.80 [facility] Comment on above: Performed By: #### C BCDF #### [address] [address] Lymphocytes/100 WBC (Bld) 39.3 % Normal 13.0 - 44.0 [facility] Comment on above: Performed By: #### C BCDF #### [address] [address] MCHC (RBC) [Mass/Vol] 33.2 g/dL Normal 32.0 - 36.0 [facility] Comment on above: Performed By: #### C BCDF #### [address] [address] MCV (RBC) [Entitic vol] 95 fL Normal 80 - 100 [facility] Comment on above: Performed By: #### C BCDF #### [address] [address] Monocytes (Bld) [#/Vol] 0.71 10*3/uL Normal 0.10 - 1.00 [facility] Comment on above: Performed By: #### C BCDF #### [address] [address] Monocytes/100 WBC (Bld) 9.5 % Normal 2.0 - 10.0 [facility] Comment on above: Performed By: #### C BCDF #### [address] [address] Neutrophils (Bld) [#/Vol] 3.63 10*3/uL Normal 1.20 - 7.70 [facility] Comment on above: Result Comment: Perc ent differential counts (%) should be interpreted in the context of the absolute cell counts (cells/L). Performed By: #### C BCDF #### [id number] [address] Neutrophils/100 WBC (Bld) 48.4 % Normal 40.0 - 80.0 [facility] Comment on above: Performed By: #### C BCDF #### [address] [address] Platelets (Bld) [#/Vol] 270 10*3/uL Normal 150 - 450 [facility] Comment on above: Performed By: #### C BCDF #### [place] [id number] RBC 4.02 x10E12/L Normal 4.00 - 5.20 [facility] Comment on above: Performed By: #### C BCDF #### [place] [id number] WBC (Bld) [#/Vol] 7.5 10*3/uL Normal 4.4 - 11.3 [facility] Comment on above: Performed By: #### C BCDF #### [place] [id number] COMPREHENSIVE PANELon 2022 Albumin [Mass/Vol] 3.8 g/dL Normal 3.4 - 5.0 [facility] Comment on above: Performed By: #### C MP ####[place] [id number] ALP [Catalytic activity/Vol] 73 U/L Normal 33 - 110 [facility] Comment on above: Performed By: #### C MP ####[place] [id number] ALT [Catalytic activity/Vol] 7 U/L Normal 7 - 45 [facility] Comment on above: Result Comment: Edwige ents treated with Sulfasalazine may generate falsely decreased results for ALT. Performed By: #### C MP ####[place] [id number] Anion gap [Moles/Vol] 11 mmol/L Normal 10 - 20 [facility] Comment on above: Performed By: #### C MP ####[facility] [id number] [place] [address] AST [Catalytic activity/Vol] 12 U/L Normal 9 - 39 [facility] Comment on above: Performed By: #### C MP ####[address] [address] Bilirubin [Mass/Vol] 0.4 mg/dL Normal 0.0 - 1.2 [facility] Comment on above: Performed By: #### C MP ####[address] [address] Calcium [Mass/Vol] 8.7 mg/dL Normal 8.6 - 10.3 [facility] Comment on above: Performed By: #### C MP ####[address] [address] Chloride [Moles/Vol] 105 mmol/L Normal 98 - 107 [facility] Comment on above: Performed By: #### C MP ####[address] [address] Creatinine [Mass/Vol] 0.65 mg/dL Normal 0.50 - 1.05 [facility] Comment on above: Performed By: #### C MP ####[address] [address] eGFR FEMALE >90 Normal >90 [facility] Comment on above: Result Comment: CALC ULATIONS OF ESTIMATED GFR ARE PERFORMED USING THE 2020 CKD-EPI STUDY REFIT EQUATION WITHOUT THE RACE VARIABLE FOR THE IDMS-TRACEABLE CREATININE METHODS. https://jasn.asnjournals.org/content//ASN.809335 8592 Performed By: #### C MP ####[address] [address] Glucose [Mass/Vol] 86 mg/dL Normal 74 - 99 [facility] Comment on above: Performed By: #### C MP ####[address] [address] HCO3 (Bld) [Moles/Vol] 24 mmol/L Normal 21 - 32 [facility] Comment on above: Performed By: #### C MP ####[address] [address] Potassium [Moles/Vol] 3.5 mmol/L Normal 3.5 - 5.3 [facility] Comment on above: Performed By: #### C MP ####[address] [address] Protein [Mass/Vol] 6.5 g/dL Normal 6.4 - 8.2 [facility] Comment on above: Performed By: #### C MP ####[address] [address] Sodium [Moles/Vol] 136 mmol/L Normal 136 - 145 [facility] Comment on above: Performed By: #### C MP ####[address] [address] Urea nitrogen [Mass/Vol] 13 mg/dL Normal 6 - 23 [facility] Comment on above: Performed By: #### C MP ####[address] [address] Clinical Note - Pharmacy v2- Discharge Med Counselingon 08-21-2022 Clinical Note - Pharmacy v2-Discharge Med Counseling Clinical Note - Pharmacy v2: Discharge Meds: Document TopicDischarge Med Counseling Time [id number] minutes Prescription [facility] Medications Home Medications Review Status for Reconciliation: Complete Med Status: Patient Currently Takes Medications Drug Name: carvedilol 25 mg oral tablet Instructions: 1 tab(s) orally 2 times a day Drug Name: Lasix 40 mg oral tablet Instructions: 1 tab(s) orally once a day Drug Name: aspirin 81 mg oral tablet Instructions: null Drug Name: Zofran 4 mg oral tablet Instructions: 1 tab(s) orally every 8 hours, As Needed Drug Name: PROzac 40 mg oral capsule Instructions: 1 cap(s) orally once a day Drug Name: Entresto 24 mg-26 mg oral tablet Instructions: 1 tab(s) orally 2 times a day Drug Name: albuterol 90 mcg/inh inhalation aerosol with adapter Instructions: 1 puff(s) inhaled 3 times a day, As Needed - for shortness of breath Drug Name: famotidine 20 mg tablet Instructions: 1 tab(s) orally once a day Drug Name: omeprazole 40 mg capsule,delayed release Instructions: 1 cap(s) orally once a day Drug Name: Aldactone 25 mg oral tablet Instructions: 0.5 tab(s) orally once a day Medications ReviewedSpironolactone Education TopicADR counseling; dosage, frequency, storage; medication indication; medication interactions; missed dose explanation; refills Learnerpatient Barriers to Learningnone Methodverbal; written Outcome Evaluation2=meets goals/outcomes Additional NotesDiscussed discharge medications with patient. Patient was given home medication summary and [facility] patient education handout for Spironolactone. Reviewed when next doses of medications are due based on last doses given inpatient. Review of medications included therapy expectations, side effects, and drug interactions. Informed patient that RX(s) were sent to [facility] in [place] and patient confirmed this is preferred pharmacy. Patient verbalized understanding of medications. Allergy: Allergies Summary Allergy Allergen: Toradol Type: Drug Reaction: Resp Distress Allergen: Benadryl Type: Drug Reaction: Resp Distress Allergen: naproxen Type: Drug Reaction: Resp Distress Allergen: Ubrelvy Type: Drug Reaction: Resp Distress Allergen: tramadol Type: Drug Reaction: Hives/Urticaria Allergen: sulfa drugs Type: Drug Category Reaction: Unknown Electronic Signatures: Nadia Sethi ([facility]ERLY [facility]) (Signed 21-Aug-2022 10:54) Authored: Discharge Meds, Allergy Last Updated: 21-Aug-2022 10:54 by Nadia Sethi ([facility]ERLY [facility]) [facility] Daily Progress [facility] Medicineon 08-21-2022 Daily Progress Note-Cardiovascular Medicine Service: Cardiovascular Medicine Subjective Data: TABITHA FISH is a 56 year old Female who is Hospital Day # 3. Additional Information: Patient sitting up in bed, watching television. She still reports discomfort under her left breast. Patient reports the intermittent non-radiating pain began back in 2019. Patient reports she has not tried anything at home to help with her pain and the pain worsens when she places pressure on the area. 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 Patient reports only smoking four cigarettes per day compared to a pack per day and denies any cravings at this time. Objective Data: Objective Information: T PRBPMAPSpO2 [id number]/7693% Date/Time08/21 7: 7: 7: 7: 7:05 Range(35.6C - 36.4C ) (70 - 82 ) (16 - 20 ) (100 - 119 )/ (68 - 84 ) (93% - 96% ) Pain reported at 08/21 8:00: 1 = Mild Physical Exam Narrative: Physical Exam: General: awake, alert and oriented. No acute distress. Well developed, hydrated and nourished. Appears stated age. Skin: Skin is warm, dry and intact without rashes or lesions. Appropriate color for ethnicity. Nail beds pink with no cyanosis or clubbing HEENT: normocephalic, atraumatic; conjunctivae are clear without exudates or hemorrhage. Sclera is non-icteric. Eyelids are normal in appearance without swelling or lesions. Hearing intact. Nares are patent bilaterally. Moist mucous membranes. Cardiovascular: heart rate and rhythm are normal. No murmurs, gallops, or rubs are auscultated. S1 and S2 are heard and are of normal intensity. No JVD, no carotid bruits Respiratory: bilateral lung sounds clear to auscultations without rales, rhonchi, or wheezes. No accessory muscle use or stridor Gastrointestinal: non-distended, non-tender Genitourinary: exam deferred Musculoskeletal: ROM intact, no deformities Extremities: pulses palpable bilaterally; no swelling or erythema Neurological: no focal deficits; gait steady Psychiatric: appropriate mood and affect; good judgment and insight Medication: Medications: Continuous Medications ---- No continuous medications are active Scheduled Medications ---- 1. Aspirin Enteric Coated: 81 mg Oral Daily 2. Carvedilol: 25 mg Oral 2 Times a Day 3. FLUoxetine: 40 mg Oral Daily 4. Furosemide: 40 mg Oral Daily 5. Pneumococcal 20-Valent (PREVNAR 20) Vaccine: 0.5 mL IntraMuscular Once 6. Sacubitril 24 mg - Valsartan 26 m tablet(s) Oral 2 Times a Day 7. Spironolactone: 12.5 mg Oral Daily PRN Medications ---- 1. Acetaminophen: 650 mg Oral Every 4 Hours 2. Acetaminophen: 650 mg Oral Every 4 Hours 3. Docusate: 100 mg Oral 2 Times a Day 4. Magnesium Hydroxide -Al Hydrox -Simethicone Oral Liquid: 30 mL Oral Every 6 Hours 5. Morphine Injectable: 2 mg IntraVenous Push Every 4 Hours 6. Ondansetron Injectable: 4 mg IntraVenous Push Every 4 Hours 7. oxyCODONE Immediate Release: 5 mg Oral Every 4 Hours Recent Lab Results: Results: CBC: 08/21/2022 05:05 \ Hgb / \ 12.7 / WBC Plt 7.5 270 / Hct \ / 38.2 \ RBC: 4.02 MCV: 95 Neutrophil %: 48.4 CMP: 08/21/2022 05:06 NA+ Cl- BUN / 136 105 13 / ---- Glucose 86 K+ HCO3- Creat \ 3.5 24 0.65 \ \ T Bili / \ 0.4 / AST x ---- x ALT 12 x ---- x 7 / Alk P \ / 73 \ Calcium : 8.7 Anion Gap : 11 Albumin : 3.8 T Protein : 6.5 I have reviewed these laboratory results: Comprehensive Metabolic Panel 21-Aug-2022 05:06:00 ResultValue Glucose, Serum 86 NA 136 K 3.5 CL 105 Bicarbonate, Serum 24 Anion Gap, Serum 11 BUN 13 CREAT 0.65 GFR Female >90 Calcium, Serum 8.7 ALB 3.8 ALKP 73 T Pro 6.5 T Bili 0.4 Alanine Aminotransferase, Serum 7 Aspartate Transaminase, Serum 12 Complete Blood Count + Differential 21-Aug-2022 05:05:00 ResultValue White Blood Cell Count 7.5 Red Blood Cell Count 4.02 HGB 12.7 HCT 38.2 MCV 95 MCHC 33.2 PLT 270 RDW-CV 12.5 Neutrophil % 48.4 Immature Granulocytes % 0.3 Lymphocyte % 39.3 Monocyte % 9.5 Eosinophil % 1.7 Basophil % 0.8 Neutrophil Count 3.63 Lymphocyte Count 2.95 Monocyte Count 0.71 Eosinophil Count 0.13 Basophil Count 0.06 Radiology Results: Results: Conclusion: [place] [address] [id number], Nuclear Pharmacologic Stress Test Patient Name: TABITHA FISH Ordering Physician: [id number] Kev Coleman DO Study Date: 08/20/2022 Reading Physician: [id number] Juan Manuel Snowden MD MRN/PID: [id number] Supervising [id number] Juan Manuel Snowden MD Physician: Accession/Order#: [id number] Refe (more content not included)... Normal [facility] Discharge [id number] Discharge Profile2 Discharge Orders: Anticipated Discharge Date: Anticipated Discharge [id number] Anticipated Discharge Time09:27 DNAR: Code Status at Discharge: Full Code Activity: activity as tolerated. May shower. Diet: Dietresume normal diet Diet Consistency/Textureregular / thin Additional Orders: Additional Instructions Discharge plan Resume home medications Start spironolactone 12.5 mg p.o. daily Follow-up with primary care physician within 2 weeks postdischarge Follow-up with [place] cardi[facility], patient already has a scheduled appointment for this . For Holter monitor placement Call 911 or go to nearest ED if symptoms worsen or persist Call Provider If (Homegoing Patients): Breathing faster than normal. Breathing harder than normal or having retractions. Fever of 100.4 F (38 C) or higher. Temperature is greater than 102 degrees. Chills. Drinking less than normal. Not being able to go 4-6 hours between albuterol treatments. Urinating less than normal, over 1 day. Urinating less than 4 times per day. Acting very sleepy and difficult to awaken. Vomiting (throwing up) and not able to eat or drink for 12 hours. 3 or more loose, watery bowel movements in 24 hours (diarrhea). Any new concerning symptoms. Provider FINAL REVIEW of Orders: Final Review: Final Review of Medication Reconciliation and Orders Completedby COMMISSIONED FIRE OFFICER YANNA Max at 21-Aug-2022 09:29:27 Appointments: Follow-Up Appointment 01: Physician/Dept/ServicePCP- dr chew Reason for ReferralPosthospitalization Call to Schedule in2 weeks Greg will call and make her own appointment. Follow-Up Appointment 02: Physician/Dept/[facility] Reason for ReferralPosthospitalization for chest pain/already has an appointment for per patient Call to Schedule in2-3 days Greg has a appointment on 08/23. Electronic Signatures: Latoya Bhatt (SHERMAN) (Signed 21-Aug-2022 09:38) Authored: Discharge Orders, Appointments Leonid Villalba (COMMISSIONED FIRE OFFICER-[facility]) (Signed 21-Aug-2022 09:29) Authored: Discharge Orders, Provider FINAL REVIEW of Orders, Appointments, Gold Form - Propulsion Engineer Summary Last Updated: 21-Aug-2022 09:38 by Latoya Bhatt (COST SPECIALIST) [facility] Order Reconciliationon 08-21 Order Reconciliation Page 1 Discharge Reconciliation Document Reconciliation Type: Discharge requested on behalf of Leonid Villalba (Advanced Practice Nurse) done by Leonid Villalba ([facility]) Discharge - Partial Reconciliation: 21-Aug-2022 07:40 by: Leonid Villalba ([facility]) Discharge - Partial Reconciliation: 21-Aug-2022 09:25 by: Leonid Villalba ([facility]) Discharge - Reconciliation: 21-Aug-2022 09:27 by: Leonid Villalba (COMMISSIONED FIRE OFFICER-[facility]) Home Medications EnteredHOME MEDICATIONS AT DISCHARGE DateReconciliation Comment/ Additional Information albuterol 90 mcg/inh inhalation aerosol with adapter 1 puff(s) inhaled 3 times a day, As Needed - for shortness of breath 20-Aug-2022 06:37 albuterol 90 mcg/inh inhalation aerosol with adapter 1 puff(s) inhaled 3 times a day, As Needed - for shortness of breath 20-Aug-2022 06:37 albuterol 90 mcg/inh inhalation aerosol with adapter is continued as albuterol 90 mcg/inh inhalation aerosol with adapter aspirin 81 mg oral tablet 22-Aug-2021 08:23 aspirin 81 mg oral tablet 22-Aug-2021 08:23 aspirin 81 mg oral tablet is continued as aspirin 81 mg oral tablet carvedilol 25 mg oral tablet 1 tab(s) orally 2 times a day 22-Aug-2021 08:22 carvedilol 25 mg oral tablet 1 tab(s) orally 2 times a day 22-Aug-2021 08:22 carvedilol 25 mg oral tablet is continued as carvedilol 25 mg oral tablet Entresto 24 mg-26 mg oral tablet 1 tab(s) orally 2 times a day 19-Aug-2022 22:59 Entresto 24 mg-26 mg oral tablet 1 tab(s) orally 2 times a day 19-Aug-2022 22:59 Entresto 24 mg-26 mg oral tablet is continued as Entresto 24 mg-26 mg oral tablet famotidine 20 mg tablet 1 tab(s) orally once a day 20-Aug-2022 06:38 famotidine 20 mg tablet 1 tab(s) orally once a day 20-Aug-2022 06:38 famotidine 20 mg tablet is continued as famotidine 20 mg tablet Lasix 40 mg oral tablet 1 tab(s) orally once a day 22-Aug-2021 08:22 Lasix 40 mg oral tablet 1 tab(s) orally once a day 22-Aug-2021 08:22 Lasix 40 mg oral tablet is continued as Lasix 40 mg oral tablet omeprazole 40 mg capsule,delayed release 1 cap(s) orally once a day 20-Aug-2022 06:38 omeprazole 40 mg capsule,delayed release 1 cap(s) orally once a day 20-Aug-2022 06:38 omeprazole 40 mg capsule,delayed release is continued as omeprazole 40 mg capsule,delayed release PROzac 40 mg oral capsule 1 cap(s) orally once a day 19-Aug-2022 22:58 PROzac 40 mg oral capsule 1 cap(s) orally once a day 19-Aug-2022 22:58 PROzac 40 mg oral capsule is continued as PROzac 40 mg oral capsule Zofran 4 mg oral tablet 1 tab(s) orally every 8 hours, As Needed 22-Aug-2021 08:23 Zofran 4 mg oral tablet 1 tab(s) orally every 8 hours, As Needed 22-Aug-2021 08:23 Zofran 4 mg oral tablet is continued as Zofran 4 mg oral tablet Current OrdersDateHOME MEDICATIONS AT DISCHARGE DateReconciliation Comment/ Additional Information Acetaminophen Tablet (TYLENOL)DOSE = 650 mg Oral Every 4 Hours, PRN Pain - Mild (1-3) 19-Aug-2022 23:35 Acetaminophen is not required Acetaminophen Tablet (TYLENOL)DOSE = 650 mg Oral Every 4 Hours, PRN Temp Greater Than or Equal to 38.0 C 19-Aug-2022 23:35 Acetaminophen is not required Aspirin Enteric Coated Enteric Coated Tablet (ECOTRIN)DOSE = 81 mg Oral Daily 19-Aug-2022 23:29 Aspirin Enteric Coated is not required Carvedilol Tablet (COREG)DOSE = 25 mg Oral 2 Times a Day 19-Aug-2022 23:29 Carvedilol is not required Docusate Capsule (COLACE)DOSE = 100 mg Oral 2 Times a Day, PRN Constipation 19-Aug-2022 23:35 Docusate is not required FLUoxetine Capsule (PROZAC)DOSE = 40 mg Oral Daily 19-Aug-2022 23:29 FLUoxetine is not required Furosemide Tablet (LASIX)DOSE = 40 mg Oral Daily 19-Aug-2022 23:29 Furosemide is not required Magnesium Hydroxide -Al Hydrox -Simethicone Oral Liquid (MAALOX)DOSE = 30 mL Oral Every 6 Hours, PRN Dyspepsia 19-Aug-2022 23:35 Magnesium Hydroxide -Al Hydrox -Simethicone Oral Liquid is not required Morphine Injectable DOSE = 2 mg IntraVenous Push Every 4 Hours, PRN Pain - Severe (7-10) 19-Aug-2022 23:35 Morphine Injectable is not required Ondansetron Injectable (ZOFRAN)DOSE = 4 mg IntraVenous Push Every 4 Hours, PRN Nausea and/or Vomiting 19-Aug-2022 23:35 Ondansetron Injectable is not required oxyCODONE Immediate Release Tablet (OXYIR, ROXICODONE)DOSE = 5 mg Oral Every 4 Hours, PRN Pain - Mod (4-6) 19-Aug-2022 23:35 oxyCODONE Immediate Release is not required Pneumococcal 20-Valent (PREVNAR 20) Vaccine (PREVNAR 20)DOSE = 0.5 mL IntraMuscular Once 20-Aug-2022 06:42 Pneumococcal 20-Valent (PREVNAR 20) Vaccine is not required Sacubitril 24 mg - Valsartan 26 mg Tablet (ENTRESTO)DOSE = 1 tablet(s) Oral 2 Times a Day 19-Aug-2022 23:29 Sacubitril 24 mg - Valsartan 26 mg is not required Spironolactone Tablet (ALDACTONE)DOSE = 12.5 mg Oral DailyNotes from Pharmacy: Low Risk Hazardous Drug- Single Nitrile Glove 20-Aug-2022 10:53 Spironolactone is not required Home Medications Added During Discharge Lawson (more content not included)... Normal [facility] Admission Risk Screen - Adul ton 08-20-2022 Admission Risk Screen - Adult Patient Verification: New W ID Band Applied in my Departmentyes Patient Identity Verified Bypatient ID Band FULL Name, include Middle, spelling matches patient's ID used for verificationyes ID Band Matches Patient ID used for Verficationyes ID Band MRN Matches EMR MRNyes Visitor Restriction: Coronavirus Visitor Restriction: Reasonable restrictions to in-person visitors will be observed due to current coronavirus pandemic. Travel History: COVID-19 Screening Completedno exposure or symptoms Travel or Exposure Past 30 DaysNO travel to International locations in the past 30 days Ebola AlertFor Ebola-like Symptoms: Isolate Patient and Notify Provider/Oyster Farmer For Contact: Notify Provider/Oyster Farmer Advance Directive: Advance Directive/DNRno Advance Directive Information Givenpatient/family declined [place] Fall Screen: History of falling (immediate or previous)no (0) Secondary Diagnosisyes (15) Intravenous Therapy/ Heparin/Saline Lockyes (20) Gait/Transferringnormal/bedr est/wheelchair (0) Ambulatory Aidsnone/bedrest/nurse assist (0) Mental Statusoriented to own ability (0) Score: Low risk (<25). Moderate risk (25-44). High risk (>44).35 [place]rios InterventionsMODERATE INTERVENTIONS: *Low Interventions Plus: * falls risk band/sticker applied to patient, *yellow non-skid footwear, *instruct to call for assistance before getting out of bed, *bed/chair/bedside commode/toilet alarms, *sensory devices/ambulatory aides available and in reach, *medications reviewed for potential side effects and care planning. Family Violence Screen: Are you or have you been threatened or abused physically, emotionally, or sexually by anyoneno Has anyone ever threatened to hurt your family or your petsno Does anyone try to keep you from having/contacting other friends or doing things outside your homeno Do you feel UNSAFE going back to the place where you are livingno Do you feel anyone has exploited or taken advantage of you financially or of your personal propertyno Clinical assessment: Are there any apparent signs of injuries/behaviors that could be related to abuse/neglectno Social Service Consult for abuse/neglect needed this visitno Functional Screen: Functional Screen: In the recent/past 2-4 weeks, patient or family have noticedno issues that require a speech/language consult at this time AM-PAC- Basic Mobility/Daily Activity: Patient baseline bedboundno Turning from your back to your side while in a flat bed without using bedrailsnone Moving from lying on your back to sitting on the side of a flat bed without using bedrailsnone Moving to and from bed to chair (including a wheelchair)none Standing up from a chair using your arms (e.g. wheelchair or bedside chair) none To walk in hospital roomnone Climbing 3-5 steps with railingnone Basic Mobility - Total Score24 Putting on and taking off regular lower body clothingnone Bathing (including washing, rinsing, drying)none Putting on and taking off regular upper body clothingnone Toileting, which includes using toilet, bedpan or urinalnone Taking care of personal grooming such as brushing teethnone Eating Mealsnone Daily Activity - Total Score24 Learning Assessment (Patient): Patient is Able to be Assessed for Learningyes Factors Influencing Readiness to Learnnone Factors that Impact Ability to Learnnone Devices/Methods Used to Communicatenone Learning Preferencesverbal instruction; written material Cultural Considerationsnone Developmental Considerationsnone Pentecostalism Considerationsnone Learning Assessment (Other Learner): Other learner availableno Depression Screen: During the past month, have you often been bothered by feeling down, depressed or hopelessno During the past month, have you often had little interest or pleasure in doing thingsno Have you had any thoughts of harming anyone elseno [place] Suicide: Risk Screen Not Applicable/Able to Answerable to be screened In the Past Month: Have you wished you were or could go to sleep and not wake upno In the Past Month: Have you had any actual thoughts of killing yourselfno Lifetime: Have you ever done, started to do, or prepared to do anything to end your lifeno [place] Suicide Risknegative Adult Nutrition Screen: Have you recently lost weight without tryingno Have you been eating poorly because of a decreased appetiteno Malnutrition Screening Tool Score0 Malnutrition Screening Tool RiskMST = 0 or 1 Not at risk. Eating well with little or no weight loss Nutrition Consult needed this visitno Can Patient Participate in Room Serviceyes Patient requires Paper Dishes/Plastic Utensilsno Pain Screen: Pain Scalenumerical 0-10 Pain Scale Educationteaching provided Current Pain Level4 = Moderate Acceptable Pain Level3 = Mild Expression of Pain (nonverbal)grimac (more content not included)... Normal [facility] CARDIAC STRESS/REST INJECTIO Non 08-20-2022 CARDIAC STRESS/REST INJECTION Patient Name: TABITHA FISH STUDY: CARDIAC STRESS/REST INJECTION; CARDIAC STRESS/REST (MYOCARDIAL PERFUSION/MIBI); PART 2 STRESS OR REST (NO CHARGE); 08/20/2022 9:58 am; 08/20/2022 9:56 am; 08/20/2022 9:57 am INDICATION: cp . COMPARISON: None. ACCESSION NUMBER(S): [id number]; [id number]; [id number] ORDERING CLINICIAN: KEV COLEMAN TECHNIQUE: DIVISION OF NUCLEAR MEDICINE PHARMACOLOGIC STRESS MYOCARDIAL PERFUSION SCAN, ONE DAY PROTOCOL The patient received an intravenous dose of 12.0 mCi of Tc-99m Myoview and resting emission tomographic (SPECT) images of the myocardium were acquired. The patient then received an intravenous infusion of 0.4mg regadenoson (Lexiscan) followed by an additional dose of 34.0 mCi of Tc-99m Myoview. Stress phase SPECT images of the myocardium were then acquired. These included ECG-gated images to assess and quantify ventricular function. A low-dose, nondiagnostic regional CT was utilized for attenuation correction purposes. FINDINGS: Both and stressed studies demonstrate a fixed perfusion defect in the septal wall with mildly abnormal wall motion and thickening. No evidence of ischemia. The left ventricle is normal in size. Gated images demonstrate mildly abnormal wall motion with an LV EF estimated at 50%. Attenuation correction CT images demonstrate multiple calcified granulomas in the right middle lobe and calcified mediastinal lymph nodes, likely sequela of prior granulomatous disease. IMPRESSION: 1. Fixed perfusion defect of the septal wall which may reflect prior infarction. No evidence of ischemia. 2. The left ventricle is normal in size. 3. Mildly abnormal wall motion and thickening with a left ventricular ejection fraction estimated at 50%. I personally reviewed the images/study and I agree with the findings as stated. This study was interpreted at [facility], [place], [place]. Electronically signed by: SEGUN BLUNT MD Normal [facility] CBC AND DIFFERENTIALon 08-20 % AUTOMATED IMMATURE GRAN 0.2 % Normal 0.0 - 0.9 [facility] Comment on above: Result Comment: Marilee ture Granulocyte Count (IG) includes promyelocytes, myelocytes and metamyelocytes but does not include bands. Percent differential counts (%) should be interpreted in the context of the absolute cell counts (cells/L). Performed By: #### C BCDF #### [address] [address] Basophils (Bld) [#/Vol] 0.06 10*3/uL Normal 0.00 - 0.10 [facility] Comment on above: Performed By: #### C BCDF #### [address] [address] Basophils/100 WBC (Bld) 0.7 % Normal 0.0 - 2.0 [facility] Comment on above: Performed By: #### C BCDF #### [address] [address] Eosinophils (Bld) [#/Vol] 0.12 10*3/uL Normal 0.00 - 0.70 [facility] Comment on above: Performed By: #### C BCDF #### [address] [address] Eosinophils/100 WBC (Bld) 1.5 % Normal 0.0 - 6.0 [facility] Comment on above: Performed By: #### C BCDF #### [address] [address] Erythrocyte distribution width (RBC) [Ratio] 12.7 % Normal 11.5 - 14.5 [facility] Comment on above: Performed By: #### C BCDF #### [address] [address] Hematocrit (Bld) [Volume fraction] 40.0 % Normal 36.0 - 46.0 [facility] Comment on above: Performed By: #### C BCDF #### [address] [address] Hemoglobin (Bld) [Mass/Vol] 13.4 g/dL Normal 12.0 - 16.0 [facility] Comment on above: Performed By: #### C BCDF #### [address] [address] Lymphocytes (Bld) [#/Vol] 3.48 10*3/uL Normal 1.20 - 4.80 [facility] Comment on above: Performed By: #### C BCDF #### [address] [address] Lymphocytes/100 WBC (Bld) 43.2 % Normal 13.0 - 44.0 [facility] Comment on above: Performed By: #### C BCDF #### [address] [address] MCHC (RBC) [Mass/Vol] 33.5 g/dL Normal 32.0 - 36.0 [facility] Comment on above: Performed By: #### C BCDF #### [address] [address] MCV (RBC) [Entitic vol] 95 fL Normal 80 - 100 [facility] Comment on above: Performed By: #### C BCDF #### [address] [address] Monocytes (Bld) [#/Vol] 0.92 10*3/uL Normal 0.10 - 1.00 [facility] Comment on above: Performed By: #### C BCDF #### [address] [address] Monocytes/100 WBC (Bld) 11.4 % Normal 2.0 - 10.0 [facility] Comment on above: Performed By: #### C BCDF #### [address] [address] Neutrophils (Bld) [#/Vol] 3.46 10*3/uL Normal 1.20 - 7.70 [facility] Comment on above: Result Comment: Perc ent differential counts (%) should be interpreted in the context of the absolute cell counts (cells/L). Performed By: #### C BCDF #### [address] [address] Neutrophils/100 WBC (Bld) 43.0 % Normal 40.0 - 80.0 [facility] Comment on above: Performed By: #### C BCDF #### [address] [address] Platelets (Bld) [#/Vol] 285 10*3/uL Normal 150 - 450 [facility] Comment on above: Performed By: #### C BCDF #### [address] [address] RBC 4.22 x10E12/L Normal 4.00 - 5.20 [facility] Comment on above: Performed By: #### C BCDF #### [address] [address] WBC (Bld) [#/Vol] 8.1 10*3/uL Normal 4.4 - 11.3 [facility] Comment on above: Performed By: #### C BCDF #### [address] [address] COMPREHENSIVE PANELon 2022 Albumin [Mass/Vol] 4.0 g/dL Normal 3.4 - 5.0 [facility] Comment on above: Performed By: #### C MP #### [address] [address] ALP [Catalytic activity/Vol] 75 U/L Normal 33 - 110 [facility] Comment on above: Performed By: #### C MP #### [address] [address] ALT [Catalytic activity/Vol] 8 U/L Normal 7 - 45 [facility] Comment on above: Result Comment: Edwige ents treated with Sulfasalazine may generate falsely decreased results for ALT. Performed By: #### C MP #### [address] [address] Anion gap [Moles/Vol] 9 mmol/L Low 10 - 20 [facility] Comment on above: Performed By: #### C MP #### [address] [address] AST [Catalytic activity/Vol] 12 U/L Normal 9 - 39 [facility] Comment on above: Performed By: #### C MP #### [address] [address] Bilirubin [Mass/Vol] 0.4 mg/dL Normal 0.0 - 1.2 [facility] Comment on above: Performed By: #### C MP #### [place] [address] Calcium [Mass/Vol] 9.2 mg/dL Normal 8.6 - 10.3 [facility] Comment on above: Performed By: #### C MP #### [place] [id number] Chloride [Moles/Vol] 105 mmol/L Normal 98 - 107 [facility] Comment on above: Performed By: #### C MP #### [place] [id number] Creatinine [Mass/Vol] 0.77 mg/dL Normal 0.50 - 1.05 [facility] Comment on above: Performed By: #### C MP #### [address] [address] eGFR FEMALE >90 Normal >90 [facility] Comment on above: Result Comment: CALC ULATIONS OF ESTIMATED GFR ARE PERFORMED USING THE 2020 CKD-EPI STUDY REFIT EQUATION WITHOUT THE RACE VARIABLE FOR THE IDMS-TRACEABLE CREATININE METHODS. https://jasn.asnjournals.org/content//ASN.866228 6612 Performed By: #### C MP #### [place] [id number] Glucose [Mass/Vol] 93 mg/dL Normal 74 - 99 [facility] Comment on above: Performed By: #### C MP #### [address] [address] HCO3 (Bld) [Moles/Vol] 28 mmol/L Normal 21 - 32 [facility] Comment on above: Performed By: #### C MP #### [address] [address] Potassium [Moles/Vol] 3.4 mmol/L Low 3.5 - 5.3 [facility] Comment on above: Performed By: #### C MP #### [address] [address] Protein [Mass/Vol] 6.7 g/dL Normal 6.4 - 8.2 [facility] Comment on above: Performed By: #### C MP #### [address] [address] Sodium [Moles/Vol] 139 mmol/L Normal 136 - 145 [facility] Comment on above: Performed By: #### C MP #### [address] [address] Urea nitrogen [Mass/Vol] 12 mg/dL Normal 6 - 23 [facility] Comment on above: Performed By: #### C MP #### [address] [address] [facility] Consult-Cardiovascula r Medicine Service: Service: Cardiovascular Medicine Consult: Consult requested by (Attending Name): Kev Coleman Reason: CP History of Present Illness: HPI: 56-year-old female with a medical history of ACC/AHA stage C heart failure with reduced ejection fraction (last known echocardiogram showed an EF of 25%, August 2020), hypertension, tobacco abuse here for the following complaints: Chest discomfort -Patient describes chest discomfort on the left side of her chest; radiating to her back that has been ongoing for the past 3 days. It last for hours on and and does not change with position/palpation or respiration. With walking around the patient does note dyspnea with exertion. Denies any orthopnea/PND. Does not have any lower extremity edema -Nuclear stress test performed today shows fixed perfusion defect. -As mentioned above August 2020 had a negative left heart catheterization ACC/AHA stage C HFrEF -On Entresto/Coreg 10 point review of systems was performed and is negative unless otherwise mentioned in the HPI. PAST MEDICAL HISTORY see above PAST SURGICAL HISTORY 1. Cholecystectomy 2. Partial hysterectomy 3. x1 FAMILY HISTORY Mother is alive at age 83 Father with a history of heart disease, diabetes and 2 types of cancer with one being in the colon and the other she cannot recall 2 brothers alive and well 4 children with 2 alive and well and 2 from overdose SOCIAL HISTORY Patient is and currently not employed She smokes 4 cigarettes a day (at most she was up to a pack a day); she has been smoking for 25 years Patient is trying to quit smoking after heart attack and August 2020 No alcohol or drug abuse history Review Family/Social History and ROS: Social History: Smoking Status: light user (uses <10 cig/day, OR <0.5 ppd, OR 1 can/pouch loose leaf tobacco per week, OR <0.5 vape pods per day) (1) Alcohol Use: denies(1) Drug Use: denies (1) Allergies: Toradol: Resp Distress Benadryl: Resp Distress naproxen: Resp Distress Ubrelvy: Resp Distress tramadol: Hives/Urticaria sulfa drugs: Unknown Objective: Objective Information: T PRBPMAPSpO2 [id number]/8493% Date/Time08/20 7: 7: 7: 7: 7:31 Range(35.6C - 36.3C ) (75 - 83 ) (18 - 20 ) (106 - 150 )/ (75 - 102 ) (93% - 94% ) Physical Exam Narrative: Physical Exam: On exam she appears her stated age, is alert and oriented x3, and in no acute distress. Her sclera are anicteric and her oropharynx has moist mucous membranes. Her neck is supple and without thyromegaly. The JVP is ~5 cm of water above the right atrium. Her cardiac exam has regular rhythm, normal S1, S2. No S3/4. There are no murmurs. Her lungs are clear to auscultation bilaterally and there is no dullness to percussion. Her abdomen is soft, nontender with normoactive bowel sounds. There is no HJR. The extremities are warm and without edema. The skin is dry. There is no rash present. The distal pulses are 2-3+ in all four extremities. Her mood and affect are appropriate for todays encounter. Medications: Medications: Continuous Medications ---- No continuous medications are active Scheduled Medications ---- 1. Aspirin Enteric Coated: 81 mg Oral Daily 2. Carvedilol: 25 mg Oral 2 Times a Day 3. FLUoxetine: 40 mg Oral Daily 4. Furosemide: 40 mg Oral Daily 5. Sacubitril 24 mg - Valsartan 26 m tablet(s) Oral 2 Times a Day 6. Spironolactone: 12.5 mg Oral Daily PRN Medications ---- 1. Acetaminophen: 650 mg Oral Every 4 Hours 2. Acetaminophen: 650 mg Oral Every 4 Hours 3. Docusate: 100 mg Oral 2 Times a Day 4. Magnesium Hydroxide -Al Hydrox -Simethicone Oral Liquid: 30 mL Oral Every 6 Hours 5. Morphine Injectable: 2 mg IntraVenous Push Every 4 Hours 6. Ondansetron Injectable: 4 mg IntraVenous Push Every 4 Hours 7. oxyCODONE Immediate Release: 5 mg Oral Every 4 Hours Conditional Medication Orders ---- 1. Perflutren Lipid Microsphere (Activated) 1.3 mL / NaCL 0.9% T.V. 10 mL Injectable: 0.5 mL IntraVenous Push Once Recent Lab Results: Results: I have reviewed these laboratory results: Troponin I, High Sensitivity Trending View [id number] 07:54:00 20-Aug-2022 03:55:00 20-Aug-2022 00:02:00 Troponin I, High Sensitivity7 8 9 Complete Blood Count + Differential 20-Aug-2022 03:55:00 ResultValue White Blood Cell Count 8.1 Red Blood Cell Count 4.22 HGB 13.4 HCT 40.0 MCV 95 MCHC 33.5 PLT 285 RDW-CV 12.7 Neutrophil % 43.0 Immature Granulocytes % 0.2 Lymphocyte % 43.2 Monocyte % 11.4 Eosinophil % 1.5 Basophil % 0.7 Neutrophil Count 3.46 Lymphocyte Count 3.48 Monocyte Count 0.92 Eosinophil Count 0.12 Basophil Count 0.06 Comprehensive Met (more content not included)... Normal [facility] Daily Progress Note-General Internal Medicineon 08-20-2022 Daily Progress Note-General Internal Medicine Consult Type: subsequent visit/care Service: General Internal Medicine Subjective Data: TABITHA FISH is a 56 year old Female who is Hospital Day # 2. Overnight Events: Patient had an uneventful night. Additional Information: 0800am: Patient examined at bedside. Patient alert and oriented x3 lying in bed sleeping. Patient states that she is not having any chest pain at this time or shortness of breath. Denies any other complaints Objective Data: Objective Information: T PRBPMAPSpO2 [id number]/6894% Date/Time08/20 12: 12: 12: 12: 12:01 Range(35.6C - 36.4C ) (75 - 83 ) (18 - 20 ) (101 - 150 )/ (68 - 102 ) (93% - 94% ) Pain reported at 08/20 12:01: 0 = None Physical Exam Narrative: Physical Exam: General Appearance: AAO x3 , not in acute distress Skin: skin color, texture, turgor normal; no suspicious rashes or lesions Eyes : PERRL, EOM's intact, conjunctiva pink ENT: no oral thrush, no pharyngeal erythema or exudates Neck: no JVD, no lymphadenopathy Respiratory: lungs clear to auscultation; no wheezing, rhonchi, or crackles Heart: RRR without murmur, gallop, or rubs, no ectopy Abdomen: Nondistended, positive bowel sounds, soft, nontender Extremities: no edema Peripheral pulses: normal and present x 4 extremities Neuro: alert, coherent and conversant, no focal motor deficits Medication: Medications: Continuous Medications ---- No continuous medications are active Scheduled Medications ---- 1. Aspirin Enteric Coated: 81 mg Oral Daily 2. Carvedilol: 25 mg Oral 2 Times a Day 3. FLUoxetine: 40 mg Oral Daily 4. Furosemide: 40 mg Oral Daily 5. Sacubitril 24 mg - Valsartan 26 m tablet(s) Oral 2 Times a Day 6. Spironolactone: 12.5 mg Oral Daily PRN Medications ---- 1. Acetaminophen: 650 mg Oral Every 4 Hours 2. Acetaminophen: 650 mg Oral Every 4 Hours 3. Docusate: 100 mg Oral 2 Times a Day 4. Magnesium Hydroxide -Al Hydrox -Simethicone Oral Liquid: 30 mL Oral Every 6 Hours 5. Morphine Injectable: 2 mg IntraVenous Push Every 4 Hours 6. Ondansetron Injectable: 4 mg IntraVenous Push Every 4 Hours 7. oxyCODONE Immediate Release: 5 mg Oral Every 4 Hours Recent Lab Results: Results: CBC: 08/20/2022 03:55 \ Hgb / \ 13.4 / WBC Plt 8.1 285 / Hct \ / 40.0 \ RBC: 4.22 MCV: 95 Neutrophil %: 43.0 CMP: 08/20/2022 03:55 NA+ Cl- BUN / 139 105 12 / ---- Glucose 93 K+ HCO3- Creat \ 3.4 L 28 0.77 \ \ T Bili / \ 0.4 / AST x ---- x ALT 12 x ---- x 8 / Alk P \ / 75 \ Calcium : 9.2 Anion Gap : 9 L Albumin : 4.0 T Protein : 6.7 Radiology Results: Results: Conclusion: [place] [address] [phone], Nuclear Pharmacologic Stress Test Patient Name: TABITHA FISH Ordering Physician: [id number] Kev Coleman DO Study Date: 08/20/2022 Reading Physician: [id number] Juan Manuel Snowden MD MRN/PID: [id number] Supervising [id number] Juan Manuel Snowden MD Physician: Accession/Order#: [id number] Referring Physician: [id number] Kev Coleman DO Date of : 1965 PCP: Gender: F Fellow: Admit Date: 08/19/2022 Fellow: Admission Status: Inpatient Sas Programmer Remote: Florina Salcido RRT Height: 168.00 cm Nurse: N/A Weight: 80.00 kg Special Events Coordinator: N/A BSA: 1.90 m2 Technologist: BMI: 28.34 kg/m2 Additional Staff: Age: 56 years cc report to: Patient Location: [address] cc report to: [id number] Kev Coleman DO Study Type: Sy[employer] Nuclear Order Diagnosis/ICD: R07.9-Chest pain, unspecified Indication: Chest Pain, Hypertension and HTN, COPD Procedure/CPT: Stress Test Interpretation-96096; Stress Test Supervision-[id number] Falls Risk: Low: Patient has low risk for sustaining a fall; environmental safety interventions in place. Study Details: Correct procedure and correct patient verified verbally and with ID Band checked. Patient History: Family historyof coronary artery disease, congestive heart failure, hypertension, chronic obstructive pulmonary disease and chest pain. Allergies: BENDADRYL, SULFUR, TORADOL, TRAMADOL, UBRELVY. ME Location/Type: Unknown ME on 09/14/2020 Smoker: Current. Diabetes: No. BMI: Overweight 25 - 30. Medications: BUTALBITAL, CARVEDILOL, FAMOTIDINE, FLUOXETINE, FLUTICASONE, FUROSEMIDE, HYDROXYZINE, LORAZEPAM, OMEPRAZOLE, ONDANSETRON, SUCRALFATE. The patient did not take medications as prescribed. Patient Performance: Patient received a total of 0.4 mg of Regadenoson at 8:51:56 AM. Patient received a total of 34 mCi of MIBI at 8:52:19 AM. The peak heart rate achieved was 108 bpm, which was 66 % of the age predicted target heart rate of 164 bpm. The resting blood pressure was 113/89 (more content not included)... Normal [facility] Discharge Planning [id number] 0 08-20-2022 Discharge Planning Note2 Discharge Planning: Discharge Barriersnone Planned Dispositionhome Discharge DestinationHome AMPAC < 20no Patient/Health Advocate Stated Goalreturn home with [place] of Choice Explainedyes patient/family has been given the Provider list Anticipated Discharge [id number] Discharge Planning 08/20/22 1035 Care Transition Note: Met with pt in room and explained the TCC role of navigating patients through the discharge planning process and helping with needs. Verified contact information , insurance, pharmacy and DME supplier. Patient denies problems obtaining/affording medications, takes as prescribed, understands reasons for use and possible side effects. Independent in all ADL's and IADL's. AMPAC per nursing is . ADOD is in 24 hrours according to care rounds meeting. Plan to d/c home with no other anticipated needs. CT to follow. Ella PICKENS, RN/TCC Assessment: Discharge Planning Assessment [id number] Discharge Planning Assessment Completed byElla PICKENS, RN/TCC Primary Contact Name and NumberBrandon fish [phone](1) Prior Level of FunctioningIndependent Lives Withspouse; other relative(s); parent(s); 2 grandchildren(1) Living Arrangementsmobile home(1) Stated Reason for AdmissionI wanted to have my heart checked(1) [facility] [place] Recent Falls/ Injury/ Need Assist with AmbulationDenies DME Supplier Name/NumberNA Home Care Agency/Support ServicesNA Diabetic/Supplies NeededNA Hemodialysis ScheduleNA Resource/Environmental Concernsnone(1) Anticipated Transition [place](1) Services Anticipated at Transitionnone(1) Readmission Within the Last 30 Daysno previous admission in last 30 days PCP Last Date SeenSept 2021 [employer] Anticipated Changes Related to Illnessnone Equipment Needed After Dischargenone Anticipated Discharge Facility/Level of Care Needs.Home Social Determinants of Health IdentifiedNA Special ConsiderationsNA Transportation Home Pavel/CookieBrandon Abe [phone] Medication Adherence/Afford/Obtainyes O2 LPMNA Home O2 SupplierNA Electronic Signatures: Ella Masters (RN) (Signed 20-Aug-2022 14:42) Authored: Discharge Planning, Assessment Minna Salgado (RN) (Signed 19-Aug-2022 23:00) Authored: Assessment Last Updated: 20-Aug-2022 14:42 by Ella Masters (RN) References: 1. Data Referenced From Patient Profile - Adult v2 19-Aug-2022 22:33 Normal [facility] Echocardiogramon 08-20-2022 [facility] [place] [address] [id number], TRANSTHORACIC ECHOCARDIOGRAM REPORT Patient Name: TABITHA Yu ABE Reading Physician: [id number] Juan Manuel Snowden MD Study Date: 08/20/2022 Referring LEONID BANDA Physician: MRN/PID: [id number] PCP: Accession/Order#: [id number] Department [address] Location: Date of : 1965 Fellow: Gender: F Nurse: Olya Berman RN Admit Date: 08/19/2022 Special Events Coordinator: ESTEPHANIA Narayan RVT Admission Status: Inpatient - Additional Staff: Routine Height: 167.64 cm CC Report to: Weight: 73.48 kg Study Type: Echocardiogram BSA: 1.83 m2 Blood Pressure: 146 /88 mmHg Diagnosis/ICD: R07.9-Chest pain, unspecified Indication: CP Procedure/CPT: Echo Complete w Full Doppler-[id number] Patient History: Smoker: Current, # of packs per day: 1-2 PPD x 40 years. Pertinent History: No previous echo. Study Detail: The following Echo studies were performed: 2D, M-Mode, Doppler and color flow. Technically challenging study due to poor acoustic windows and body habitus. Definity used as a contrast agent for endocardial border definition. Total contrast used for this procedure was 1 mL via IV push. A bubble study was not performed. The patient was awake. PHYSICIAN INTERPRETATION: Left Ventricle: Left ventricular systolic function was not well visualized. The left ventricular cavity size was not assessed. Left ventricular diastolic filling was indeterminate. Left Atrium: The left atrium was not well visualized. Right Ventricle: The right ventricle was not well visualized. Unable to determine right ventricular systolic function. Right Atrium: The right atrium was not well visualized. Aortic Valve: The aortic valve was not well visualized. There is no evidence of aortic valve regurgitation. The peak instantaneous gradient of the aortic valve is 7.7 mmHg. The mean gradient of the aortic valve is 4.0 mmHg. Mitral Valve: The mitral valve is normal in structure. There is no evidence of mitral valve regurgitation. Tricuspid Valve: The tricuspid valve was not well visualized. No evidence of tricuspid regurgitation. Pulmonic Valve: The pulmonic valve is not well visualized. The pulmonic valve regurgitation was not assessed. Pericardium: There is no pericardial effusion noted. Aorta: The aortic root was not well visualized. CONCLUSIONS: 1. Poorly visualized anatomical structures due to suboptimal image quality. 2. Left ventricular systolic function was not well visualized. RECOMMENDATIONS: Technically suboptimal and limited study, therefore accuracy of above interpretation could be substantially diminished. Clinical correlation is advised. Consider additional imaging modalities if clinically indicated. QUANTITATIVE DATA SUMMARY: 2D MEASUREMENTS: Normal Ranges: Ao Root d: 2.90 cm (2.0-3.7cm) LAs: 2.30 cm (2.7-4.0cm) IVSd: 0.92 cm (0.6-1.1cm) LVPWd: 0.89 cm (0.6-1.1cm) LVIDd: 4.30 cm (3.9-5.9cm) LVIDs: 3.02 cm LV Mass Index: 68.1 g/m2 LV % FS 29.8 % LA VOLUME: Normal Ranges: LA Vol A4C: 13.9 ml (22+/-6mL/m2) LA Vol A2C: 30.8 ml LA Vol BP: 21.7 ml LA Vol Index A4C: 7.6ml/m2 LA Vol Index A2C: 16.8 ml/m2 LA Vol Index BP: 11.9 ml/m2 LA Area A4C: 8.1 cm2 LA Area A2C: 11.5 cm2 LA [place] A4C: 4.0 cm LA [place] A2C: 3.6 cm LA Volume Index: 15.9 ml/m2 LA Vol A4C: 13.2 ml LA Vol A2C: 29.1 ml M-MODE MEASUREMENTS: Normal Ranges: AoV Exc: 1.60 cm (1.5-2.5cm) AORTA MEASUREMENTS: Normal Ranges: AoV Exc: 1.60 cm (1.5-2.5cm) LV SYSTOLIC FUNCTION BY 2D PLANIMETRY (MOD): Normal Ranges: EF-A4C View: 63.6 % (>=55%) EF-A2C View: 41.5 % EF-Biplane: 52.1 % LV DIASTOLIC FUNCTION: Normal Ranges: MV Peak E: 0.65 m/s (0.7-1.2 m/s) MV Peak A: 0.94 m/s (0.42-0.7 m/s) E/A Ratio: 0.69 (1.0-2.2) MV e' 0.07 m/s (>8.0) MV lateral e' 0.07 m/s MV medial e' 0.08 m/s E/e' Ratio: 9.29 (<8.0) MITRAL VALVE: Normal Ranges: MV DT: 236 msec (150-240msec) AORTIC VALVE: Normal Ranges: AoV Vmax: 1.39 m/s (<=1.7m/s) AoV Peak P.7 mmHg (<20mmHg) AoV Mean P.0 mmHg (1.7-11.5mmHg) LVOT Max Andrew: 1.00 m/s (<=1.1m/s) AoV VTI: 27.10 cm (18-25cm) LVOT VTI: 18.50 cm LVOT Diameter: 2.10 cm (1.8-2.4cm) AoV Area, VTI: 2.36 cm2 (2.5-5.5cm2) AoV Area,Vmax: 2.49 cm2 (2.5-4.5cm2) AoV Dimensionless Index: 0.68 RIGHT VENTRICLE: TAPSE: 14.3 mm TRICUSPID VALVE/RVSP: Normal Ranges: Peak TR Velocity: 2.59 m/s RV Syst Pressure: 29.8 mmHg (< 30mmHg) PULMONIC VALVE: Normal Ranges: PV Accel Time: 77 msec (>120ms) PV Max Andrew: 1.3 m/s (0.6-0.9m/s) PV Max P.0 mmHg [id number] Juan Manuel Snowden MD Electronically signed on 08/20/2022 at 12:15:59 PM Final [facility] Order Reconciliationon 08-20 Order Reconciliation Page 1 Admission Reconciliation Document Reconciliation Type: Admission requested on behalf of Kev Coleman (Physician) done by Kev Coleman (DO) Admission - Reconciliation: 19-Aug-2022 23:29 by: Kev Coleman (DO) Home MedicationsEnteredLast Dose TakenReconciled with current Order Reconciliation Comment/ Additional Information albuterol 90 mcg/inh inhalation aerosol with adapter [id number] AM Reviewed and Held aspirin 81 mg oral tablet [id number] AM Aspirin Enteric Coated Enteric Coated Tablet (ECOTRIN)DOSE = 81 mg Oral Dailyaspirin 81 mg oral tablet continued as the inpatient order Aspirin Enteric Coated carvedilol 25 mg oral tablet 1 tab(s) orally 2 times a [id number]-Aug-2022 AM Carvedilol Tablet (COREG)DOSE = 25 mg Oral 2 Times a Day carvedilol 25 mg oral tablet continued as the inpatient order Carvedilol Entresto 24 mg-26 mg oral tablet 1 tab(s) orally 2 times a [id number]-Aug-2022 AM Sacubitril 24 mg - Valsartan 26 mg Tablet (ENTRESTO)DOSE = 1 tablet(s) Oral 2 Times a DayEntresto 24 mg-26 mg oral tablet continued as the inpatient order Sacubitril 24 mg - Valsartan 26 mg Fioricet oral capsule 1 cap(s) orally every 4 hours, As [id number] Reviewed and Held Lasix 40 mg oral tablet 1 tab(s) orally once a [id number] AM Furosemide Tablet (LASIX)DOSE = 40 mg Oral DailyLasix 40 mg oral tablet continued as the inpatient order Furosemide PROzac 40 mg oral capsule 1 cap(s) orally once a [id number] AM FLUoxetine Capsule (PROZAC)DOSE = 40 mg Oral DailyPROzac 40 mg oral capsule continued as the inpatient order FLUoxetine Zofran 4 mg oral tablet 1 tab(s) orally every 8 hours, As [id number] Reviewed and Held Additional Current Orders Pneumococcal 23-Valent (PNEUMOVAX) Vaccine DOSE = 0.5 mL IntraMuscular OnceClinician Notes: :: Must be given prior to discharge. Order entered from Admission Screen. [facility] Patient Profile - Adult v2on 08-20-2022 Patient Profile - Adult v2 Profile: Initial Info: How to be AddressedDeanna(1) Spoken Language PreferredEnglish (1) Source of Informationpatient Stated Reason for AdmissionI wanted to have my heart checked Primary Contact Name and NumberBrandon fish [phone] Wants Family/Rep Notified of Admissionno Notify PCPnotify PCP Informed of Patient Visiting Rightsyes Limitations on Visitors/Phone Callsnone [facility] To in Past 90 Daysnone Current or Previous Servicenone Patient Belongingsremains with patient Patient Belongings Remaining with Patientclothing; wedding band; jewelry Medications Brought to Hospitalno General Health: Blood Avoidance/Restrictionsnone(1 ) Previous Transfusion Reactionnot applicable Weight in kg73.8 kilogram(s) Weight in wgf463.7 pound(s) Weight Methodactual (measured) Scale Typebed Height in cm170.1 centimeter(s) Height in feet5 feet Height in inches6.97 inch(es) Height Methodstated BMI (kg/m2)25.506 square meter RSP Based Care: How would you like to participate in your careI don't know What is the number one concern for you during this hospitalizationjust to feel better What is the most important thing we can do to support you during this hospitalizationget me comfortable Is there anything we need to know to best care for youno Substance: Smoking Statuslight user (uses <10 cig/day, OR <0.5 ppd, OR 1 can/pouch loose leaf tobacco per week, OR <0.5 vape pods per day) Tobacco Cessation Education (provide if tobacco use within the last 12 mos) patient declined Alcohol Usedenies Drug Usedenies Health Mgmt: Symptoms/Conditions Managed at Homecardiovascular; respiratory Are You no Cardiovascular Symptoms/Conditionshypertens ion Cardiovascular Management Strategiesmedication therapy Cardiovascular Managementmanaged Respiratory Symptoms/ConditionsCOPD Respiratory Management Strategiesmedication therapy Respiratory Managementmanaged Relationship/Environ: Resource/Environmental Concernsnone Primary Source of Support/Comfortspouse Lives Withspouse; other relative(s); parent(s); 2 grandchildren Living Arrangementsmobile home Services Anticipated at Transitionnone Anticipated Transition Tohome Significant IndicatorsComplete Information Review: Allergies, Home Meds and Significant Events have been Reviewed and Verified with Patient/Familyyes ALLERGY, INTOLERANCE, ADVERSE EVENT: Allergies: Toradol: Drug, Resp Distress, Active Benadryl: Drug, Resp Distress, Active naproxen: Drug, Resp Distress, Active Ubrelvy: Drug, Resp Distress, Active sulfa drugs: Drug Category, Unknown, Active Electronic Signatures: Minna Salgado (RN) (Signed 19-Aug-2022 22:43) Authored: Initial Info, General Health, [facility] Based Care, Substance, Health Mgmt, Relationship/Environ, Additional Information Last Updated: 19-Aug-2022 22:43 by Minna Salgado (CIPRIANO) References: 1. Data Referenced From Patient Profile - Procedure-H and P 22-Aug-2021 08:25 [facility] Sy[facility]o Nuclear Orderon 2022 [place] [address] [id number], Nuclear Pharmacologic Stress Test Patient Name: TABITHA FISH Ordering Physician: [id number] Kev Coleman DO Study Date: 08/20/2022 Reading Physician: [id number] Juan Manuel Snowden MD MRN/PID: [id number] Supervising [id number] Juan Manuel Snowden MD Physician: Accession/Order#: [id number] Referring Physician: [id number] Kev Coleman DO Date of : 1965 PCP: Gender: F Fellow: Admit Date: 08/19/2022 Fellow: Admission Status: Inpatient Sas Programmer Remote: Florina Salcido RRT Height: 168.00 cm Nurse: N/A Weight: 80.00 kg Special Events Coordinator: N/A BSA: 1.90 m2 Technologist: BMI: 28.34 kg/m2 Additional Staff: Age: 56 years cc report to: Patient Location: [address] report to: [id number] Kev Coleman DO Study Type: Syngo Nuclear Order Diagnosis/ICD: R07.9-Chest pain, unspecified Indication: Chest Pain, Hypertension and HTN, COPD Procedure/CPT: Stress Test Interpretation-09667; Stress Test Supervision-[id number] Falls Risk: Low: Patient has low risk for sustaining a fall; environmental safety interventions in place. Study Details: Correct procedure and correct patient verified verbally and with ID Band checked. Patient History: Family history of coronary artery disease, congestive heart failure, hypertension, chronic obstructive pulmonary disease and chest pain. Allergies: BENDADRYL, SULFUR, TORADOL, TRAMADOL, UBRELVY. ME Location/Type: Unknown ME on 09/14/2020 Smoker: Current. Diabetes: No. BMI: Overweight 25 - 30. Medications: BUTALBITAL, CARVEDILOL, FAMOTIDINE, FLUOXETINE, FLUTICASONE, FUROSEMIDE, HYDROXYZINE, LORAZEPAM, OMEPRAZOLE, ONDANSETRON, SUCRALFATE. The patient did not take medications as prescribed. Patient Performance: Patient received a total of 0.4 mg of Regadenoson at 8:51:56 AM. Patient received a total of 34 mCi of MIBI at 8:52:19 AM. The peak heart rate achieved was 108 bpm, which was 66 % of the age predicted target heart rate of 164 bpm. The resting blood pressure was 113/89 mmHg with a heart rate of 70 bpm. The patient developed shortness of breath during the stress exam. The symptoms resolved with rest 4 minutes into recovery. The blood pressure response was normal. The test was terminated due to: dyspnea and completed lab protocol. Baseline ECG: Resting ECG showed normal sinus rhythm with normal tracing. Stress Stage Data: + +--+------+ -------+ HR Sys BP Knox BP + +--+------+ -------+ Baseline Resting 70 113 89 + +--+------+ -------+ Stage 1/2 73 + +--+------+ -------+ Stage I 78 131 93 + +--+------+ -------+ Recovery ECG: Recovery ECG showed normal sinus rhythm. The heart rate recovery was normal. + +---+------+--- ----+ HR Sys BP Knox BP + +---+------+--- ----+ Recovery I 104 + +---+------+--- ----+ Recovery II 105 141 88 + +---+------+--- ----+ Recovery III 103 141 89 + +---+------+--- ----+ Recovery IV 107 122 91 + +---+------+--- ----+ Summary: 1. Baseline EKG shows normal sinus rhythm, nonspecific interventricular conduction delay, with secondary ST-T segment changes. 2. Regadenoson stress EKG is nondiagnostic for ischemia due to underlying ST-T segment changes. [id number] Juan Manuel Snowden MD Electronically signed on 08/20/2022 at 12:19:18 PM Final Normal [facility] TROPONIN I, HIGH SENSITIVITY on 08-20-2022 TROPONIN I, HIGH SENSITIVITY 7 ng/L Normal 0 - 13 [facility] Comment on above: Result Comment: . Less than 99th percentile of normal range cutoff- Female and children under 18 years old <14 ng/L; Male <21 ng/L: Negative Repeat testing should be performed if clinically indicated. . Female and children under 18 years old 14-50 ng/L; Male 21-50 ng/L: Consistent with possible cardiac damage and possible increased clinical risk. Serial measurements may help to assess extent of myocardial damage. . >50 ng/L: Consistent with cardiac damage, increased clinical risk and myocardial infarction. Serial measurements may help assess extent of myocardial damage. . NOTE: Children less than 1 year old may have higher baseline troponin levels and results should be interpreted in conjunction with the overall clinical context. . NOTE: Troponin I testing is performed using a different testing methodology at [facility] than at other [facility]. Direct result comparisons should only be made within the same method. Performed By: #### T [facility] #### [place] [id number] TROPONIN I, HIGH SENSITIVITY 8 ng/L Normal 0 - 13 [facility] Comment on above: Result Comment: . Less than 99th percentile of normal range cutoff- Female and children under 18 years old <14 ng/L; Male <21 ng/L: Negative Repeat testing should be performed if clinically indicated. . Female and children under 18 years old 14-50 ng/L; Male 21-50 ng/L: Consistent with possible cardiac damage and possible increased clinical risk. Serial measurements may help to assess extent of myocardial damage. . >50 ng/L: Consistent with cardiac damage, increased clinical risk and myocardial infarction. Serial measurements may help assess extent of myocardial damage. . NOTE: Children less than 1 year old may have higher baseline troponin levels and results should be interpreted in conjunction with the overall clinical context. . NOTE: Troponin I testing is performed using a different testing methodology at [facility] than at other [facility]. Direct result comparisons should only be made within the same method. Performed By: #### T [facility] #### [address] [address] TROPONIN I, HIGH SENSITIVITY 9 ng/L Normal 0 - 13 [facility] Comment on above: Result Comment: . Less than 99th percentile of normal range cutoff- Female and children under 18 years old <14 ng/L; Male <21 ng/L: Negative Repeat testing should be performed if clinically indicated. . Female and children under 18 years old 14-50 ng/L; Male 21-50 ng/L: Consistent with possible cardiac damage and possible increased clinical risk. Serial measurements may help to assess extent of myocardial damage. . >50 ng/L: Consistent with cardiac damage, increased clinical risk and myocardial infarction. Serial measurements may help assess extent of myocardial damage. . NOTE: Children less than 1 year old may have higher baseline troponin levels and results should be interpreted in conjunction with the overall clinical context. . NOTE: Troponin I testing is performed using a different testing methodology at [facility] than at other [facility]. Direct result comparisons should only be made within the same method. Performed By: #### T [facility] #### [place] [id number] [place] [address] Tobacco Screening.on Adult depression screening assessment No [facility] Work Phone: Fall risk assessment a) No falls within the last year [facility] Work Phone: Tobacco use status HS a) Yes [facility] Work Phone: Initial Visit (Gastroenterol ogy)on 12-28-2021 Initial Visit (Gastroenterology) Diagnoses/Problems Assessed Abdominal pain, acute, left lower quadrant (789.04,338.19) (R10.32) Acute diverticulitis (562.11) (K57.92) Orders Acute diverticulitis Start: Amoxicillin-Pot Clavulanate 875-125 MG Oral Tablet; TAKE 1 TABLET EVERY 12 HOURS DAILY Rx By: Jarrett Mueller; Dispense: 10 Days ; #:20 Tablet; Refill: 0;For: Acute diverticulitis; PARAS = N; Verified Transmission to [facility] [employer] [facility]; Last Updated By: [employer]; 12/28/2021 10:51:29 AM Start: Dicyclomine HCl - 20 MG Oral Tablet; TAKE 1 TABLET BY MOUTH EVERY 6 HOURS NEEDED Rx By: Jarrett Mueller; Dispense: 30 Days ; #:90 Tablet; Refill: 2;For: Acute diverticulitis; PARAS = N; Verified Transmission to [facility]; Last Updated By: [employer]; 12/28/2021 10:51:29 AM Provider Impressions Suspect diverticulitis given her negative CT scan may be evolving. Symptoms not compatible with ulcer disease. Recommend she continue H2 kathie add amoxicillin clavulanic acid twice daily for 10 days and Bentyl follow-up if not improved in 1 week. Chief Complaint NPV in the office today for nausea, gagging, feeling full quickly, abdominal pain. No prior EGD, last colon was July 2021. No prior Gastric emptying study. Patient is not able to eat anything due to the nausea and vomiting, pt is holding water down. History of Present IllnessDan is a 56-year-old female underwent screening colonoscopy in July of this year colonoscopy was performed by myself and was unremarkable other than sigmoid diverticular disease. Patient states approximate 2 weeks ago developed crampy mid abdominal abdominal pain radiating to the left lower quadrant. Associate with nausea and a crampy discomfort in the left side which improved with defecation. She admits she has been mildly constipated been using laxatives. She denies any gross rectal bleeding, mucoid stools, fevers or chills. She has been to 2 ERs most recently but [facility] Saturday. CT scan at that time showed diverticular disease of the sigmoid colon without diverticulitis. Lab work was unremarkable. She was placed on H2 blockers by her family doctor 2 weeks ago without improvement was then placed on PPI therapy again without improvement along with Carafate. She been following a bland diet. Despite this when she eats she feels 20 minutes after meals she will have cramping around her periumbilical region and then pain in her left side followed by passage of stool within some relief of the pain. She denies any other symptomatology. Review of Systems Constitutional: no fever, no chills, not feeling tired and no recent weight loss. ENT: no lymphadenopathy. Cardiovascular: no shortness of breath and no chest pain. Respiratory: no cough. Gastrointestinal: as noted in HPI. Musculoskeletal: no joint swelling. Integumentary: no rashes, no skin lesions and was no jaundiced. All other systems have been reviewed and are negative for complaint. Active Problems Problems Anxiety and depression (300.00,311) (F41.9,F32.A) CHF (congestive heart failure) (428.0) (I50.9) COPD (chronic obstructive pulmonary disease) (496) (J44.9) Encounter for screening colonoscopy (V76.51) (Z12.11) GERD (gastroesophageal reflux disease) (530.81) (K21.9) Hypertension (401.9) (I10) Migraines (346.90) (G43.909) Past Medical History Problems History of anxiety (V11.8) (Z86.59) History of panic attacks (V11.8) (Z86.59) History of Primary cervical cancer (V10.41) (Z85.41) Surgical History Problems History of Cholecystectomy History of Hysterectomy History of [place] tooth extraction Family History Mother Family history of diabetes mellitus (V18.0) (Z83.3) Family history of myocardial infarction (V17.3) (Z82.49) Father Family history of Alzheimer's disease (V17.2) (Z82.0) Family history of cardiac disorder (V17.49) (Z82.49) Family history of dementia (V17.2) (Z81.8) Family history of diabetes mellitus (V18.0) (Z83.3) Family history of emphysema (V17.6) (Z82.5) Family history of hypertension (V17.49) (Z82.49) Family history of malignant neoplasm of colon (V16.0) (Z80.0) Social History Problems Cigarette smoker (305.1) (F17.210) No alcohol use No illicit drug use Patient consumes caffeinated coffee (V49.89) (Z78.9) Patient ingests cola containing caffeine (V49.89) (Z78.9) Allergies Medication Benadryl Recorded By: Claribel Scott; 07/20/2021 9:43:51 AM Sulfur Recorded By: Claribel Scott; 07/20/2021 9:43:51 AM Toradol Recorded By: Claribel Scott; 07/20/2021 9:43:51 AM Tramadol Recorded By: Claribel Scott; 07/20/2021 9:43:51 AM Ubrelvy TABS Recorded By: Claribel Scott; 07/20/2021 9:43:51 AM Current Meds Medication NameInstruction Aspirin EC 81 MG Oral Tablet Delayed ReleaseTAKE 1 TABLET DAILY. Wqgvsrgldl-YUNW-Dhsjrcsn 50-300-40 MG Oral CapsuleTAKE 1 CAPSULE Every 6 hours PRN Carvedilol 25 MG Oral TabletTake 2 tablets daily Famotidine 20 MG Oral TabletTAKE 1 TABLET EVERY 12 HOURS (more content not included)... Normal [facility] Office Visit (Internal Medic ine)on 12-25-2021 Follow-up visit Diagnoses/Problems Assessed Anxiety and depression (300.00,311) (F41.9,F32.A) GERD (gastroesophageal reflux disease) (530.81) (K21.9) Orders GERD (gastroesophageal reflux disease) Start: Famotidine 20 MG Oral Tablet; Take 1 tablet twice daily Rx By: Gabe Mcpherson; Dispense: 7 Days ; #:14 Tablet; Refill: 0;For: GERD (gastroesophageal reflux disease); PARAS = N; Verified Transmission to [facility] #[facility]; Last Updated By: [employer]; 12/25/2021 12:11:56 PM Start: Omeprazole 40 MG Oral Capsule Delayed Release; TAKE 1 CAPSULE Daily Rx By: Gabe Mcpherson; Dispense: 0 Days ; #:30 Capsule; Refill: 11;For: GERD (gastroesophageal reflux disease); PARAS = N; Verified Transmission to [facility] #[facility]; Last Updated By: [employer]; 12/25/2021 12:11:57 PM Patient Discussion/Summary GERD with epigastric pain: Continue Carafate, resume Pepcid, increase omeprazole to 40 mg. Continue with GI consult as scheduled Anxiety and depression: Patient currently taking 20 mg fluoxetine daily. May consider increasing this after GI complaints are managed. Patient admits that when the epigastric pain presents, this precipitates neck attack which makes the reflux worse. Chief Complaint Patient here today to be seen for mid abdomen discomfort, nausea and vomiting. Patient states she did have a BM this morning that was black in color. Patient was seen in the ER yesterday for chest discomfort. Patient has appt. with Dr. Mueller this week and he prescribed her Carafate, which patient states is helping. History of Present IllnessPatient presents for reevaluation of GERD and epigastric pain. Patient has been seen and ER setting several times over the past 2 months for same. Multiple cardiac and abdominal work-ups have been unremarkable. Patient was seen and treated for this last month with omeprazole and Pepcid. Symptoms resolved and then returned. ER visit yesterday yielded similar results patient was prescribed Carafate which is helping. Patient denies melena or rectal bleeding. Pain is worse at about 3:00 in the morning. Patient does smoke cigarettes and drink soda. Patient is scheduled to see gastroenterology in 3 days. Review of Systems Constitutional: no fever. Gastrointestinal: as noted in HPI. Active Problems Problems Anxiety and depression (300.00,311) (F41.9,F32.A) CHF (congestive heart failure) (428.0) (I50.9) COPD (chronic obstructive pulmonary disease) (496) (J44.9) Encounter for screening colonoscopy (V76.51) (Z12.11) GERD (gastroesophageal reflux disease) (530.81) (K21.9) Hypertension (401.9) (I10) Migraines (346.90) (G43.909) Past Medical History Problems History of anxiety (V11.8) (Z86.59) History of panic attacks (V11.8) (Z86.59) History of Primary cervical cancer (V10.41) (Z85.41) Surgical History Problems History of Cholecystectomy History of Hysterectomy History of Douglas tooth extraction Family History Mother Family history of diabetes mellitus (V18.0) (Z83.3) Family history of myocardial infarction (V17.3) (Z82.49) Father Family history of Alzheimer's disease (V17.2) (Z82.0) Family history of cardiac disorder (V17.49) (Z82.49) Family history of dementia (V17.2) (Z81.8) Family history of diabetes mellitus (V18.0) (Z83.3) Family history of emphysema (V17.6) (Z82.5) Family history of hypertension (V17.49) (Z82.49) Family history of malignant neoplasm of colon (V16.0) (Z80.0) Social History Problems Cigarette smoker (305.1) (F17.210) No alcohol use No illicit drug use Patient consumes caffeinated coffee (V49.89) (Z78.9) Patient ingests cola containing caffeine (V49.89) (Z78.9) Allergies Medication Benadryl Recorded By: Claribel Scott; 07/20/2021 9:43:51 AM Sulfur Recorded By: Claribel Scott; 07/20/2021 9:43:51 AM Toradol Recorded By: Claribel Scott; 07/20/2021 9:43:51 AM Tramadol Recorded By: Claribel Scott; 07/20/2021 9:43:51 AM Ubrelvy TABS Recorded By: Claribel Scott; 07/20/2021 9:43:51 AM Current Meds Medication NameInstruction Aspirin EC 81 MG Oral Tablet Delayed ReleaseTAKE 1 TABLET DAILY. Momuupsbyz-XWHP-Pwkbigdo 50-300-40 MG Oral CapsuleTAKE 1 CAPSULE Every 6 hours PRN Carvedilol 25 MG Oral TabletTake 2 tablets daily Famotidine 20 MG Oral TabletTAKE 1 TABLET EVERY 12 HOURS DAILY. FLUoxetine HCl - 20 MG Oral CapsuleTAKE 1 CAPSULE Daily Fluticasone-Salmeterol 250-50 MCG/ACT Inhalation Aerosol Powder Breath ActivatedInhale 1 puff twice daily. Furosemide 40 MG Oral TabletTAKE 1 TABLET DAILY. hydrOXYzine HCl - 25 MG Oral Tablettake 1 tab every 6 hours as needed for anxiety/insomnia/nausea Omeprazole 20 MG Oral Capsule Delayed ReleaseTAKE 1 CAPSULE DAILY EVERY MORNING BEFORE BREAKFAST. Vitals Vital Signs Recorded: [id number] 11:35AM Vucetnoayqx29.3 F Heart Rate83 Qwnryrdu919 Wghpthfvm41 Height5 ft 6 in Nxdzhj410 lb 4.8 oz BMI Guhefjgnkf62.13 kg/m2 BSA Calculated1.89 Tobacco Usea) Yes PHQ-2 #1. Over the l (more content not included)... Normal [facility] Tobacco Screening.on 022 Adult depression screening assessment No [facility] Work Phone: Fall risk assessment a) No falls within the last year [facility] Work Phone: Tobacco use status CPHS a) Yes [facility] Work Phone: Bacteria Ur Culton 2 Bacteria identified Cx Nom (U) [id number] Abnormal [facility] Comment on above: Order Comment: Speci men Type: BLOOD SPECIMEN Ordering Facility: [facility] Address: [address], [place] [address] Result Comment: >=10 0,000 CFU/ml Mixed microbiota No further workup. Mixed microbiota can be due to???urine???contamination with skin bacteria at time of collection or presence of a long-term urinary catheter. If a new culture is needed, please consider re-education of the patient on proper midstream collection technique or straight catheterization for???urine???collection. Performed By: #### S LACT #### [facility] CLIA [id number] [address] [place] [address] [place] CBC W Auto Differential pane l (Bld)on 12-23-2021 Basophils (Bld) [#/Vol] 0.04 10*3/uL Normal <0.11 [facility] Comment on above: Order Comment: Speci men Type: BLOOD SPECIMEN Ordering Facility: [facility] Address: [address] [place] [address] Performed By: #### S LACT #### [facility] CLIA [id number] [address] Basophils/100 WBC (Bld) 0.4 % Normal [facility] Comment on above: Order Comment: Speci men Type: BLOOD SPECIMEN Ordering Facility: [facility] Address: [address] [place] [address] Performed By: #### S LACT #### [facility] CLIA [id number] [address] Differential cell count method Nom (Bld) Auto Normal [facility] Comment on above: Order Comment: Speci men Type: BLOOD SPECIMEN Ordering Facility: [facility] Address: [address] [place] [address] Performed By: #### S LACT #### [facility] CLIA [id number] [address] [place] Eosinophils (Bld) [#/Vol] 0.06 10*3/uL Normal <0.46 [facility] Comment on above: Order Comment: Speci men Type: BLOOD SPECIMEN Ordering Facility: [facility] Address: [address] [place] [address] Performed By: #### S LACT #### [facility] CLIA [id number] [address] Eosinophils/100 WBC (Bld) 0.6 % [facility] Comment on above: Order Comment: Speci men Type: BLOOD SPECIMEN Ordering Facility: [facility] Address: [address] [place] [address] Performed By: #### S LACT #### [facility] CLIA [id number] [address] Erythrocyte distribution width (RBC) [Ratio] 12.7 % Normal 11.5-15.0 [facility] Comment on above: Order Comment: Speci men Type: BLOOD SPECIMEN Ordering Facility: [facility] Address: [address] [place] [address] Performed By: #### S LACT #### [facility] CLIA [id number] [address] Hematocrit (Bld) [Volume fraction] 39.3 % Normal 36.0-46.0 [facility] Comment on above: Order Comment: Speci men Type: BLOOD SPECIMEN Ordering Facility: [facility] Address: [address] [place] [address] Performed By: #### S LACT #### [facility] CLIA [id number] [address] Hemoglobin (Bld) [Mass/Vol] 13.7 g/dL Normal 11.5-15.5 [facility] Comment on above: Order Comment: Speci men Type: BLOOD SPECIMEN Ordering Facility: [facility] Address: [address] [place] [address] Performed By: #### S LACT #### [facility] CLIA [id number] [address] IMMATURE GRAN % 0.4 % Normal [facility] Comment on above: Order Comment: Speci men Type: BLOOD SPECIMEN Ordering Facility: [facility] Address: [address] [place] [address] Performed By: #### S LACT #### [facility] CLIA [id number] [address] IMMATURE GRAN ABS 0.04 k/uL Normal <0.10 [facility] Comment on above: Order Comment: Speci men Type: BLOOD SPECIMEN Ordering Facility: [facility] Address: [address] [place] [address] Performed By: #### S LACT #### [facility] CLIA [id number] [address] Lymphocytes (Bld) [#/Vol] 2.03 10*3/uL Normal 1.00-4.00 [facility] Comment on above: Order Comment: Speci men Type: BLOOD SPECIMEN Ordering Facility: [facility] Address: [address] [place] [address] Performed By: #### S LACT #### [facility] CLIA [id number] [address] Lymphocytes/100 WBC (Bld) 20.1 % Normal [facility] Comment on above: Order Comment: Speci men Type: BLOOD SPECIMEN Ordering Facility: [facility] Address: [address] [place] [address] Performed By: #### S LACT #### [facility] CLIA [id number] [address] MCH (RBC) [Entitic mass] 32.4 pg Normal 26.0-34.0 [facility] Comment on above: Order Comment: Speci men Type: BLOOD SPECIMEN Ordering Facility: [facility] Address: [address] [place] [address] Performed By: #### S LACT #### [facility] CLIA [id number] [address] [facility] MCHC (RBC) [Mass/Vol] 34.9 g/dL Normal 30.5-36.0 [facility] Comment on above: Order Comment: Speci men Type: BLOOD SPECIMEN Ordering Facility: [facility] Address: [address] [place] [address] Performed By: #### S LACT #### [facility] CLIA [id number] [address] MCV (RBC) [Entitic vol] 92.9 fL Normal 80.0-100.0 [facility] Comment on above: Order Comment: Speci men Type: BLOOD SPECIMEN Ordering Facility: [facility] Address: [address] [place] [address] Performed By: #### S LACT #### [facility] CLIA [id number] [address] [place] [address] [place] Monocytes (Bld) [#/Vol] 0.70 10*3/uL Normal <0.87 [facility] Comment on above: Order Comment: Speci men Type: BLOOD SPECIMEN Ordering Facility: [facility] Address: [address] [place] [address] Performed By: #### S LACT #### [facility] CLIA [id number] [address] Monocytes/100 WBC (Bld) 6.9 % Normal [facility] Comment on above: Order Comment: Speci men Type: BLOOD SPECIMEN Ordering Facility: [facility] Address: [address] [place] [address] Performed By: #### S LACT #### [facility] CLIA [id number] [address] [place] Neutrophils (Bld) [#/Vol] 7.24 10*3/uL Normal 1.45-7.50 [facility] Comment on above: Order Comment: Speci men Type: BLOOD SPECIMEN Ordering Facility: [facility] Address: [address] [place] [address] Performed By: #### S LACT #### [facility] CLIA [id number] [address] Neutrophils/100 WBC (Bld) 71.6 % Normal [facility] Comment on above: Order Comment: Speci men Type: BLOOD SPECIMEN Ordering Facility: [facility] Address: [address] [place] [address] Performed By: #### S LACT #### [facility] CLIA [id number] [address] [place] Nucleated RBC (Bld) [#/Vol] 10*3/uL Normal <0.01 [facility] Comment on above: Order Comment: Speci men Type: BLOOD SPECIMEN Ordering Facility: [facility] Address: [address] [place] [address] Performed By: #### S LACT #### [facility] CLIA [id number] [address] [place] [address] [facility] [place] Nucleated RBC/100 WBC (Bld) [Ratio] 0.0 /[address] [facility] Comment on above: Order Comment: Speci men Type: BLOOD SPECIMEN Ordering Facility: [facility] Address: [address] [place] [address] Performed By: #### S LACT #### [facility] CLIA [id number] [address] [place] [address] [place] Platelet mean volume (Bld) [Entitic vol] 10.9 fL Normal 9.0-12.7 [facility] Comment on above: Order Comment: Speci men Type: BLOOD SPECIMEN Ordering Facility: [facility] Address: [address] [place] [address] Performed By: #### S LACT #### [facility] CLIA [id number] [address] [place] Platelets (Bld) [#/Vol] 270 10*3/uL Normal 150-400 [facility] Comment on above: Order Comment: Speci men Type: BLOOD SPECIMEN Ordering Facility: [facility] Address: [address] [place] [address] Performed By: #### S LACT #### [facility] CLIA [id number] [address] [place] [address] [place] RBC (Bld) [#/Vol] 4.23 10*6/uL Normal 3.90-5.20 [facility] Comment on above: Order Comment: Speci men Type: BLOOD SPECIMEN Ordering Facility: [facility] Address: [address] [place] [address] Performed By: #### S LACT #### [facility] CLIA [id number] [address] [place] WBC (Bld) [#/Vol] 10.11 10*3/uL Normal 3.70-11.00 [facility] Comment on above: Order Comment: Speci men Type: BLOOD SPECIMEN Ordering Facility: [facility] Address: [address] [place] [address] Performed By: #### S LACT #### [facility] CLIA [id number] [address] [place] [address] [place] Comprehensive metabolic 2000 panelon 12-23-2021 Albumin [Mass/Vol] 4.6 g/dL Normal 3.9-4.9 [facility] Comment on above: Order Comment: Speci men Type: BLOOD SPECIMENOrdering Facility: [facility] Address: [address] [place] [address] Performed By: #### 3 040-3, 41071-8 ####[facility] [id number] [place] [address] [place] ALP [Catalytic activity/Vol] 91 U/L Normal 34-123 [facility] Comment on above: Order Comment: Speci men Type: BLOOD SPECIMENOrdering Facility: [facility] Address: [address] [place] [address] Performed By: #### 3 040-3, 53159-3 ####[facility] [id number] [address] [place] ALT [Catalytic activity/Vol] 10 U/L Normal 7-38 [facility] Comment on above: Order Comment: Speci men Type: BLOOD SPECIMENOrdering Facility: [facility] Address: [address] [place] [address] Performed By: #### 3 040-3, 53319-6 ####[facility] [id number] [address] Anion gap [Moles/Vol] 12 mmol/L Normal 9-18 [facility] Comment on above: Order Comment: Speci men Type: BLOOD SPECIMENOrdering Facility: [facility] Address: [address] [place] [address] Performed By: #### 3 040-3, 48498-2 ####[facility] [id number] [address] [place] AST [Catalytic activity/Vol] Normal [facility] Comment on above: Order Comment: Speci men Type: BLOOD SPECIMENOrdering Facility: [facility] Address: [address] [address] Result Comment: Unab le to assay due to interference from hemolysis. Suggest reorder as clinically indicated. Performed By: #### 3 040-3, 75397-9 ####[facility] [id number] [place] [address] [place] Bilirubin [Mass/Vol] 0.3 mg/dL Normal 0.2-1.3 [facility] Comment on above: Order Comment: Speci men Type: BLOOD SPECIMENOrdering Facility: [facility] Address: [address] [place] [address] Performed By: #### 3 040-3, 40026-3 ####[facility] [id number] [place] [address] [place] Calcium [Mass/Vol] 9.2 mg/dL Normal 8.5-10.2 [facility] Comment on above: Order Comment: Speci men Type: BLOOD SPECIMENOrdering Facility: [facility] Address: [address] [place] [address] Performed By: #### 3 -3, 87581-9 ####[facility] [id number] [place] [address] [place] Chloride [Moles/Vol] 104 mmol/L Normal 97-105 [facility] Comment on above: Order Comment: Speci men Type: BLOOD SPECIMENOrdering Facility: [facility] Address: [address] [address] Performed By: #### 3 -3, 57945-8 ####[facility] [id number] [place] [address] [place] CO2 [Moles/Vol] 25 mmol/L Normal 22-30 [facility] Comment on above: Order Comment: Speci men Type: BLOOD SPECIMENOrdering Facility: [facility] Address: [facility] [address] Performed By: #### 3 040-3, 30924-4 ####[facility] [id number] [place] [address] [place] Creatinine [Mass/Vol] 0.74 mg/dL Normal 0.58-0.96 [facility] Comment on above: Order Comment: Fany lee Type: BLOOD SPECIMENOrdering Facility: [facility] Address: [address] [id number] Performed By: #### 3 040-3, 48581-7 ####[facility] [id number] [place] [id number] [place] [facility] ESTIMATED GLOMERULAR FILTRATION RATE 96 mL/min/1.73m??? Normal >=60 [facility] Comment on above: Order Comment: Fany lee Type: BLOOD SPECIMENOrdering Facility: [facility] Address: [address] [place] [address] Result Comment: Verónica mated Glomerular Filtration Rate (eGFR) is calculated using the 2020 CKD-EPI creatinine equation. This equation utilizes serum creatinine, sex, and age as parameters. The creatinine assay has traceable calibration to isotope dilution-mass spectrometry. Refer to KDIGO guidelines for clinical interpretation. In patients with unstable renal function, e.g. those with acute kidney injury, the eGFR may not accurately reflect actual GFR. Performed By: #### 3 040-3, 64696-1 ####[facility] [id number] [place] [address] [place] Glucose [Mass/Vol] 138 mg/dL High 74-99 [facility] Comment on above: Order Comment: Fany lee Type: BLOOD SPECIMENOrdering Facility: [facility] Address: [address] [phone] Result Comment: The [place] [employer] (ADA) provides guidance for cutoff values for fasting glucose and random glucose. The ADA defines fasting as no caloric intake for at least 8 hours. Fasting plasma glucose results between 100 to 125 mg/dL indicate increased risk for diabetes (prediabetes). Fasting plasma glucose results greater than or equal to 126 mg/dL meet the criteria for diagnosis of diabetes. In the absence of unequivocal hyperglycemia, results should be confirmed by repeat testing. In a patient with classic symptoms of hyperglycemia or hyperglycemic crisis, random plasma glucose results greater than or equal to 200 mg/dL meet the criteria for diagnosis of diabetes. Reference: Standards of Medical Care in Diabetes 2016, [place] [employer]. Diabetes Care. 2016.39(Suppl 1). Performed By: #### 3 040-3, 24443-5 ####[facility] [id number] [place] [address] [place] Potassium [Moles/Vol] 3.5 mmol/L Low 3.7-5.1 [facility] Comment on above: Order Comment: Speci men Type: BLOOD SPECIMENOrdering Facility: [facility] Address: [address] [place] [address] Performed By: #### 3 -3, ####[facility] [id number] [place] [address] [place] Protein [Mass/Vol] 7.7 g/dL Normal 6.3-8.0 [facility] Comment on above: Order Comment: Speci men Type: BLOOD SPECIMENOrdering Facility: [facility] Address: [address] [place] [address] Performed By: #### 3 040-3, 34991-4 ####[facility] [id number] [place] [address] [place] Sodium [Moles/Vol] 141 mmol/L Normal 136-144 [facility] Comment on above: Order Comment: Speci men Type: BLOOD SPECIMENOrdering Facility: [facility] Address: [address] [place] [address] Performed By: #### 3 040-3, 69206-9 ####[facility] [id number] [place] [address] [place] Urea nitrogen [Mass/Vol] 9 mg/dL Normal 7-21 [facility] Comment on above: Order Comment: Speci men Type: BLOOD SPECIMENOrdering Facility: [facility] Address: [address] [place] [address] Performed By: #### 3 040-3, 82029-6 ####[facility] [id number] [place] [address] [place] D dimer FEU PPP-mCncon 12-23 Fibrin D-dimer FEU (PPP) [Mass/Vol] 910 ng/mL FEU High <500 [facility] Comment on above: Order Comment: Speci men Type: BLOOD SPECIMEN Ordering Facility: [facility] Address: [facility] [address] Performed By: #### 4 8065-7 #### [facility] CLIA [id number] [address] [place] [address] [facility] ED NOTEon 12-23-2021 ED NOTE HNO ID: [id number] Author: Mohan Rodriguez RN Service: ? Author Type: Registered Nurse Type: ED Notes Filed: 12/23/2021 2:38 PM Note Text: Patient leaving AMA, paperwork filled out by patient and given to [employer]. Patient being driven home by brother. Discharge instructions reviewed with patient via teachback. Pt verbalizes understanding. Pt awake and alert, respirations regular and unlabored. No further questions for this RN. [facility] ED NOTE HNO ID: [id number] Author: Gianna Salgado RN Service: Nursing Author Type: Registered Nurse Type: ED Notes Filed: 12/23/2021 9:14 AM Note Text: Patient came to Er yesterday for abdominal pain and nausea. She returns today when her pain medication wore off at 0500 and she states that the pain is 8/10. Placed on con't monitoring. [facility] ED PROV NOTEon 12-23-2021 ED PROV NOTE HNO ID: [id number] Author: Ya Diaz MD Service: ? Author Type: Physician Type: ED Provider Notes Filed: 12/23/2021 3:20 PM Note Text: ED Provider Note Patient Name: Tabitha Fish : 1965 SERVICE DATE: 12/23/21 History Patient presents with: Abdominal Pain: Lower abdominal pain Nausea Patient is a 56-year-old female coming in with abdominal pain. Patient states she has had abdominal pain for a long time they have not found the cause of it. She was seen here yesterday and states she felt well for about 12 or 15 hours but then the pain returned. She is quite nauseated. She denies take anything for nausea. She has not vomited. She denies any chest pain shortness of breath fevers. She had blood work yesterday and a CAT scan showing no acute process and felt she could go home. She has had a previous cholecystectomy and hysterectomy still has her ovaries. PAST MEDICAL HISTORY Diagnosis Date Chronic obstructive pulmonary disease (COPD) (HCC) Coronary artery disease Heart attack (HCC) Migraine Pancreatitis PAST SURGICAL HISTORY Procedure Laterality Date CHOLECYSTECTOMY HX 2000 HYSTERECTOMY HX 1999 still has ovaries FAMILY HISTORY Problem Relation Age of Onset Diabetes Mother Hypertension Father Diabetes Father Colon Cancer Father Dementia Father Alzheimer's Disease Father Cancer Brother lung Heart Attack Maternal Grandmother 70 Cancer Paternal Grandmother Cancer Paternal Grandfather Social History Tobacco Use Smoking status: Every Day Packs/day: 1.00 Types: Cigarettes Smokeless tobacco: Never Vaping Use Vaping Use: Never used Substance and Sexual Activity Alcohol use: Never Drug use: Never Sexual activity: Not on file ALLERGIES Allergen Reactions Aspirin Anaphylaxis Benadryl [Diphenhyd* Hives Buspar [Buspirone] Intolerance Naproxen Anaphylaxis Toradol [Ketorolac] Hives Ubrelvy [Ubrogepant] Shortness of Breath Review of Systems Constitutional: Negative for fever. Respiratory: Negative for shortness of breath. Cardiovascular: Negative for chest pain. Gastrointestinal: Positive for abdominal pain. Negative for vomiting. All other systems reviewed and are negative. Physical Exam Vitals BP Pulse Temp Temp src Resp SpO2 Weight Height 12/23/21 0908 12/23/21 0908 12/23/21 0911 12/23/21 0911 12/23/21 0908 12/23/21 0908 12/23/21 0911 -- 176/91 80 36.6 ?C (97.8 ?F) Oral 14 95 % 79.4 kg (175 lb) Physical Exam Vitals and nursing note reviewed. Constitutional: Comments: Patient is tearful initially on examination HENT: Head: Normocephalic. Mouth/Throat: Mouth: Mucous membranes are moist. Cardiovascular: Rate and Rhythm: Normal rate and regular rhythm. Pulmonary: Effort: Pulmonary effort is normal. Breath sounds: Normal breath sounds. Abdominal: Palpations: Abdomen is soft. Comments: Abdomen is mild diffusely tender no rebounding or guarding is noted Musculoskeletal: General: No swelling or tenderness. Cervical back: Neck supple. Skin: General: Skin is warm. Neurological: General: No focal deficit present. Mental Status: She is alert. Psychiatric: Mood and Affect: Mood normal. Diagnostic Testing ED Labs Ordered and Reviewed COMP METABOLIC PANEL - Abnormal; Notable for the following components: Result Value Ref Range Glucose 138 (*) 74 - 99 mg/dL Potassium 3.5 (*) 3.7 - 5.1 mmol/L All other components within normal limits URINALYSIS, REFLEX MICROSCOPIC - Abnormal; Notable for the following components: Clarity Slightly Cloudy (*) Clear Hemoglobin/Blood,Ur 1+ (*) Negative RBC, Urine 3-5 /HPF (*) 0-3 /HPF Bacteria Moderate (*) None Seen /HPF All other components within normal limits LIPASE BLD - Normal CBC + DIFF Narrative: This is an appended report. These results have been appended to a previously verified report. HIGH SENSITIVITY TROPONIN T (INITIAL) D-DIMER EXPEDITED COVID19 URINE CULTURE Procedures ED Course / Clinical Impression Clinical Impressions as of 12/23/21 1517 Generalized abdominal pain Nausea Chest pain, unspecified type Positive D dimer COVID-19 test performed per [facility] [place] policy for suspected COVID community exposure. MDM / Disposition / Plan Patient states whenever she had yesterday with initially gave her Dilaudid and Zofran she was still nauseated was then given the droperidol. Her abdominal symptoms improved the nausea and the pain was gone. However she started having chest pain. She is not sure if it is a panic attack she states she is not worried about anything. She states that she had a heart attack last year but it did not require a stent. Patient is again tearful and anxious appearing. Patient had an EKG showing normal sinus rhythm rate [address] depression laterally with T wave inversion but was present on previous EKG. Patient's labs show normal white blood cell c (more content not included)... Normal [facility] EKGon 12-23-2021 Electrocardiogram Ventricular Rate : 8 1 BPM Atrial Rate : 81 BPM P-R Interval : 158 ms QRS Duration : 92 ms Q-T Interval : 396 ms QTC Calculation(Bazett) : 460 ms Calculated P [place] : 88 degrees Calculated R [place] : 114 degrees Calculated T [place] : 75 degrees NORMAL SINUS RHYTHM WITH SINUS ARRHYTHMIA LATERAL INFARCT , AGE UNDETERMINED ABNORMAL ECG Confirmed by EMILY ELDER, YA ([id number]), fan mail editor Yareli Montalvo ([id number]) on 12/24/2021 12:18:50 PM NAME : TABITHA FISH PID : [id number] : 1965 Gender : Female Race : ORD : Procedure Date : Dec 23 2021 13:19:14 Edit Date : Dec 24 2021 12:18:52 Diagnosis: NORMAL SINUS RHYTHM WITH SINUS ARRHYTHMIA LATERAL INFARCT , AGE UNDETERMINED ABNORMAL ECG Confirmed by YA DIAZ MD ([id number]), fan mail editor Yareli Montalvo ([id number]) on 12/24/2021 12:18:50 PM Test Reason : Location : 1 : ER 04 Overread By : YA DIAZ MD Edited By : Yareli Montalvo Referred By : , Acquired by : HAFSA, [facility] Fibrin D-dimer FEU (PPP) [Ma ss/Vol]on 12-23-2021 D DIMER AGE-RELATED CUTOFF 550 ng/mL [facility] Comment on above: Order Comment: Specluis lee Type: BLOOD SPECIMEN Ordering Facility: [facility] Address: [address] [place] [address] Performed By: #### 4 8065-7 #### [facility] CLIA [id number] [address] [place] [address] [place] Lipase SerPl-cCncon 12-24-19 22 Lipase [Catalytic activity/Vol] 32 U/L Normal 16-61 [facility] Comment on above: Order Comment: Fany lee Type: BLOOD SPECIMENOrdering Facility: [facility] Address: [address] [place] [address] Performed By: #### 3 040-3, 80201-9 ####[facility] [id number] [place] [address] [place] SARS-CoV-2 RNA Resp Ql CHRISTINE+p robeon 12-23-2021 SARS-CoV-2 (COVID-19) RNA CHRISTINE+probe Ql (Resp) SARS-CoV-2 (Agent of COVID-19) Not Detected by RT-PCR or equivalent method. Normal Not Detected [facility] Comment on above: Order Comment: Fany lee Type: BLOOD SPECIMEN Ordering Facility: [facility] Address: [address] [place] [address] Result Comment: This test has been authorized by FDA under an Emergency Use Authorization (EUA). Performed By: #### S LACT #### [facility] CLIA [id number] [address] URINALYSIS, REFLEX MICROSCOP ICon 12-23-2021 Bacteria LM.HPF (Urine sed) [#/Area] Moderate Abnormal None Seen [facility] Comment on above: Order Comment: Speci men Type: BLOOD SPECIMEN Ordering Facility: [facility] Address: [address] [place] [address] Performed By: #### S LACT #### [facility] CLIA [id number] [address] Bilirubin Ql (U) Negative Normal Negative [facility] Comment on above: Order Comment: Speci men Type: BLOOD SPECIMEN Ordering Facility: [facility] Address: [address] [place] [address] Performed By: #### S LACT #### [facility] CLIA [id number] [address] Clarity (Unsp spec) Slightly Cloudy Abnormal Clear [facility] Comment on above: Order Comment: Speci men Type: BLOOD SPECIMEN Ordering Facility: [facility] Address: [address] [place] [address] Performed By: #### S LACT #### [facility] CLIA [id number] [address] Color (U) Yellow Normal Yellow [facility] Comment on above: Order Comment: Speci men Type: BLOOD SPECIMEN Ordering Facility: [facility] Address: [address] [place] [address] Performed By: #### S LACT #### [facility] CLIA [id number] [address] Epithelial cells LM.HPF (Urine sed) [#/Area] Few Normal [facility] Comment on above: Order Comment: Speci men Type: BLOOD SPECIMEN Ordering Facility: [facility] Address: [address] [place] [address] Performed By: #### S LACT #### [facility] CLIA [id number] [address] Glucose Test strip (U) [Mass/Vol] Negative Normal Negative [facility] Comment on above: Order Comment: Speci men Type: BLOOD SPECIMEN Ordering Facility: [facility] Address: [address] [place] [address] Performed By: #### S LACT #### [facility] CLIA [id number] [address] Hemoglobin Ql (U) 1+ Abnormal Negative [facility] Comment on above: Order Comment: Speci men Type: BLOOD SPECIMEN Ordering Facility: [facility] Address: [address] [place] [address] Performed By: #### S LACT #### [facility] CLIA [id number] [address] Ketones Ql (U) Negative Normal Negative [facility] Comment on above: Order Comment: Speci men Type: BLOOD SPECIMEN Ordering Facility: [facility] Address: [address] [place] [address] Performed By: #### S LACT #### [facility] CLIA [id number] [address] Leukocyte esterase Test strip Ql (U) Negative Normal Negative [facility] Comment on above: Order Comment: Speci men Type: BLOOD SPECIMEN Ordering Facility: [facility] Address: [address] [place] [address] Performed By: #### S LACT #### [facility] CLIA [id number] [address] Nitrite Ql (U) Negative Normal Negative [facility] Comment on above: Order Comment: Speci men Type: BLOOD SPECIMEN Ordering Facility: [facility] Address: [address] [place] [address] Performed By: #### S LACT #### [facility] CLIA [id number] [address] pH (U) 6.0 [pH] Normal 5.0-8.0 [facility] Comment on above: Order Comment: Speci men Type: BLOOD SPECIMEN Ordering Facility: [facility] Address: [address] [place], [place] [id number] Performed By: #### S LACT #### [facility] CLIA [id number] [address] Protein (U) [Mass/Vol] Normal [facility] Comment on above: Order Comment: Speci men Type: BLOOD SPECIMEN Ordering Facility: [facility] Address: [address] [place] [address] Result Comment: Visi ble blood causes falsely elevated results for analyte Protein. Due to this limitation, Protein will not be reported for patients whose urine contains visible blood. Performed By: #### S LACT #### [facility] CLIA [id number] [address] RBC LM.HPF (Urine sed) [#/Area] 3-5 /HPF Abnormal 0-3 /HPF [facility] Comment on above: Order Comment: Speci men Type: BLOOD SPECIMEN Ordering Facility: [facility] Address: [address] [place] [address] Performed By: #### S LACT #### [facility] CLIA [id number] [address] Specific gravity (U) [Rel density] 1.015 Normal 1.005-1.[address] [facility] Comment on above: Order Comment: Speci men Type: BLOOD SPECIMEN Ordering Facility: [facility] Address: [address] [place] [address] Performed By: #### S LACT #### [facility] CLIA [id number] [address] Urobilinogen Ql (U) 0.2 EU/dL Normal 0.2-1.0 EU/dL [facility] Comment on above: Order Comment: Speci men Type: BLOOD SPECIMEN Ordering Facility: [facility] Address: [address] [place] [address] Performed By: #### S LACT #### [facility] CLIA [id number] [address] WBC LM.HPF (Urine sed) [#/Area] 0-5 /HPF Normal 0-5 /HPF [facility] Comment on above: Order Comment: Speci men Type: BLOOD SPECIMEN Ordering Facility: [facility] Address: [facility] [place] [address] Performed By: #### S LACT #### [facility] CLIA [id number] [address] [place] [address] [place] ALLIED HEALTHon 12-22-2021 ALLIED HEALTH HNO ID: [id number] Author: RT Nicky(R) Service: Radiology Author Type: Sas Programmer Remote Type: Allied Health Filed: 12/22/2021 2:48 PM Note Text: Radiology Service Progress Note DATE OF SERVICE: December 22, 2021 TIME: 2:48 PM PATIENT IDENTITY VERIFICATION COMPLETED USING TWO (2) STANDARD IDENTIFIERS: Name and Date of confirmed by patient verbally and Name and Date of confirmed by identification band. FALL SCREENING: Has the patient had 2 falls in the last year or 1 fall with injury or currently using an Ambulatory Assistive Device (Walker, Cane, Wheelchair, Crutches, etc.)? Emergency Room Patient: Screened in ED PATIENT GENDER DATA: Female. status: : No status: NO. PATIENT RELEVANT IMPLANT DATA REVIEWED: Not Applicable ALLERGIES: Reviewed and unchanged CONTRAST ALLERGY: NO. EXAM: CT -CONTRAST INDUCED NEPHROPATHY RISK FACTORS: Patient age > 60 years CREATININE: Creatinine Date Value Ref Range Status 12/22/2021 0.95 0.58 - 0.96 mg/dL Final 11/21/2021 0.77 0.58 - 0.96 mg/dL Final 05/16/2021 0.71 0.58 - 0.96 mg/dL Final Estimated Glomerular Filtration Rate Date Value Ref Range Status 12/22/2021 71 >=60 mL/min/1.73m? Final Comment: Estimated Glomerular Filtration Rate (eGFR) is calculated using the 2020 CKD-EPI creatinine equation. This equation utilizes serum creatinine, sex, and age as parameters. The creatinine assay has traceable calibration to isotope dilution-mass spectrometry. Refer to KDIGO guidelines for clinical interpretation. In patients with unstable renal function, e.g. those with acute kidney injury, the eGFR may not accurately reflect actual GFR. eGFR- Date Value Ref Range Status 05/16/2021 >60 Final P.O.C.T. RESULTS: POC done: Yes, See Lab Tab December 22, 2021 TREATMENT: N/A PERIPHERAL IV DATA: Inpatient - refer to LDA documentation RADIOLOGY DEPARTMENT: CT; Exam(s) Completed: Abdomen/Pelvis SIGNATURE: RT Nicky(R) PATIENT NAME: Tabitha Fish DATE: December 22, 2021 TIME: 2:48 PM [facility] CBC W Auto Differential pane l (Bld)on 12-22-2021 Basophils (Bld) [#/Vol] 0.07 10*3/uL Normal <0.11 [facility] Comment on above: Order Comment: Speci men Type: BLOOD SPECIMEN Ordering Facility: [facility] Address: [address] [place] [address] Performed By: #### S LACT #### [facility] CLIA [id number] [address] Basophils/100 WBC (Bld) 0.6 % [facility] Comment on above: Order Comment: Speci men Type: BLOOD SPECIMEN Ordering Facility: [facility] Address: [address] [place] [address] Performed By: #### S LACT #### [facility] CLIA [id number] [address] Differential cell count method Nom (Bld) Auto [facility] Comment on above: Order Comment: Osmanyi men Type: BLOOD SPECIMEN Ordering Facility: [facility] Address: [address] [place] [address] Performed By: #### S LACT #### [facility] CLIA [id number] [address] [facility] Eosinophils (Bld) [#/Vol] 0.03 10*3/uL Normal <0.46 [facility] Comment on above: Order Comment: Speci men Type: BLOOD SPECIMEN Ordering Facility: [facility] Address: [address] [place] [address] Performed By: #### S LACT #### [facility] CLIA [id number] [address] [place] Eosinophils/100 WBC (Bld) 0.3 % [facility] Comment on above: Order Comment: Speci men Type: BLOOD SPECIMEN Ordering Facility: [facility] Address: [address] [place] [address] Performed By: #### S LACT #### [facility] CLIA [id number] [address] [place] Erythrocyte distribution width (RBC) [Ratio] 12.7 % Normal 11.5-15.0 [facility] Comment on above: Order Comment: Speci men Type: BLOOD SPECIMEN Ordering Facility: [facility] Address: [address] [place] [address] Performed By: #### S LACT #### [facility] CLIA [id number] [address] [place] Hematocrit (Bld) [Volume fraction] 41.5 % Normal 36.0-46.0 [facility] Comment on above: Order Comment: Speci men Type: BLOOD SPECIMEN Ordering Facility: [facility] Address: [address] [place] [address] Performed By: #### S LACT #### [facility] CLIA [id number] [address] [place] [address] [place] Hemoglobin (Bld) [Mass/Vol] 14.2 g/dL Normal 11.5-15.5 [facility] Comment on above: Order Comment: Speci men Type: BLOOD SPECIMEN Ordering Facility: [facility] Address: [address] [place] [address] Performed By: #### S LACT #### [facility] CLIA [id number] [address] IMMATURE GRAN % 0.3 % Normal [facility] Comment on above: Order Comment: Speci men Type: BLOOD SPECIMEN Ordering Facility: [facility] Address: [address] [place] [address] Performed By: #### S LACT #### [facility] CLIA [id number] [address] OF [place] IMMATURE GRAN ABS 0.03 k/uL Normal <0.10 [facility] Comment on above: Order Comment: Speci men Type: BLOOD SPECIMEN Ordering Facility: [facility] Address: [address] [place] [address] Performed By: #### S LACT #### [facility] CLIA [id number] [address] Lymphocytes (Bld) [#/Vol] 2.49 10*3/uL Normal 1.00-4.00 [facility] Comment on above: Order Comment: Speci men Type: BLOOD SPECIMEN Ordering Facility: [facility] Address: [address] [place] [address] Performed By: #### S LACT #### [facility] CLIA [id number] [address] Lymphocytes/100 WBC (Bld) 22.3 % Normal [facility] Comment on above: Order Comment: Speci men Type: BLOOD SPECIMEN Ordering Facility: [facility] Address: [address] [place] [address] Performed By: #### S LACT #### [facility] CLIA [id number] [address] MCH (RBC) [Entitic mass] 31.8 pg Normal 26.0-34.0 [facility] Comment on above: Order Comment: Speci men Type: BLOOD SPECIMEN Ordering Facility: [facility] Address: [address] [place] [address] Performed By: #### S LACT #### [facility] CLIA [id number] [address] MCHC (RBC) [Mass/Vol] 34.2 g/dL Normal 30.5-36.0 [facility] Comment on above: Order Comment: Speci men Type: BLOOD SPECIMEN Ordering Facility: [facility] Address: [address] [place] [address] Performed By: #### S LACT #### [facility] CLIA [id number] [address] MCV (RBC) [Entitic vol] 93.0 fL Normal 80.0-100.0 [facility] Comment on above: Order Comment: Speci men Type: BLOOD SPECIMEN Ordering Facility: [facility] Address: [address] [place] [address] Performed By: #### S LACT #### [facility] CLIA [id number] [address] [place] [address] [place] Monocytes (Bld) [#/Vol] 0.87 10*3/uL High <0.87 [facility] Comment on above: Order Comment: Speci men Type: BLOOD SPECIMEN Ordering Facility: [facility] Address: [address] [place] [address] Performed By: #### S LACT #### [facility] CLIA [id number] [address] [place] [address] [place] Monocytes/100 WBC (Bld) 7.8 % Normal [facility] Comment on above: Order Comment: Speci men Type: BLOOD SPECIMEN Ordering Facility: [facility] Address: [address] [place] [address] Performed By: #### S LACT #### [facility] CLIA [id number] [address] [place] [address] [place] Neutrophils (Bld) [#/Vol] 7.67 10*3/uL High 1.45-7.50 [facility] Comment on above: Order Comment: Speci men Type: BLOOD SPECIMEN Ordering Facility: [facility] Address: [address] [place] [address] Performed By: #### S LACT #### [facility] CLIA [id number] [address] [place] Neutrophils/100 WBC (Bld) 68.7 % Normal [facility] Comment on above: Order Comment: Speci men Type: BLOOD SPECIMEN Ordering Facility: [facility] Address: [address] [place] [address] Performed By: #### S LACT #### [facility] CLIA [id number] [address] [place] [address] [place] Nucleated RBC (Bld) [#/Vol] 10*3/uL Normal <0.01 [facility] Comment on above: Order Comment: Speci men Type: BLOOD SPECIMEN Ordering Facility: [facility] Address: [address] [place] [address] Performed By: #### S LACT #### [facility] CLIA [id number] [address] Nucleated RBC/100 WBC (Bld) [Ratio] 0.0 /[address] [facility] Comment on above: Order Comment: Speci men Type: BLOOD SPECIMEN Ordering Facility: [facility] Address: [address] [place] [address] Performed By: #### S LACT #### [facility] CLIA [id number] [address] [facility] Platelet mean volume (Bld) [Entitic vol] 10.7 fL Normal 9.0-12.7 [facility] Comment on above: Order Comment: Speci men Type: BLOOD SPECIMEN Ordering Facility: [facility] Address: [address] [place] [address] Performed By: #### S LACT #### [facility] CLIA [id number] [address] Platelets (Bld) [#/Vol] 282 10*3/uL Normal 150-400 [facility] Comment on above: Order Comment: Speci men Type: BLOOD SPECIMEN Ordering Facility: [facility] Address: [address] [place] [address] Performed By: #### S LACT #### [facility] CLIA [id number] [address] [place] RBC (Bld) [#/Vol] 4.46 10*6/uL Normal 3.90-5.20 [facility] Comment on above: Order Comment: Speci men Type: BLOOD SPECIMEN Ordering Facility: [facility] Address: [address] [place] [address] Performed By: #### S LACT #### [facility] CLIA [id number] [address] WBC (Bld) [#/Vol] 11.16 10*3/uL High 3.70-11.00 [facility] Comment on above: Order Comment: Speci men Type: BLOOD SPECIMEN Ordering Facility: [facility] Address: [facility] [place] [address] Performed By: #### S LACT #### [facility] CLIA [id number] [address] [place] [address] [place] [address] ABD/PEL W IVCONon 022 CT ABD/PEL W IVCON * * *Final Report* * * DATE OF EXAM: Dec 22 2021 2:52PM [facility] ABD/PEL W IVCON / PROCEDURE REASON: Abdominal pain, acute, nonlocalized * * * * Physician Interpretation * * * * EXAMINATION: CT ABDOMEN AND PELVIS WITH IV CONTRAST CLINICAL HISTORY: Abdominal pain, acute, nonlocalized Acute on chronic abd pain, new white count. Generalized TECHNIQUE: CT of the abdomen and pelvis was performed using standard technique, scanning from just above the dome of the diaphragm to the symphysis pubis. MQ: CTAP_3 Contrast: IV: 100 ml of Omnipaque 350 : ml of CT Radiation dose: Integrated Dose-length product (DLP) for this visit = 388 mGy*cm. CT Dose Reduction Employed: Automated exposure control(AEC) and iterative recon COMPARISON: 02/21/2021 RESULT: Liver: No mass. Biliary: Stable intra and extrahepatic biliary ductal dilatation, status post cholecystectomy. Spleen: Calcified granulomas. No mass. No splenomegaly. Pancreas: No mass or duct dilation. Adrenals: No mass. Kidneys: 7 mm hypodensity of fat attenuation lower interpolar region right kidney, unchanged and most consistent with an angiomyolipoma. No enhancing mass, calculus or hydronephrosis bilaterally. GI tract: No dilation or wall thickening. Appendix is unremarkable. Sigmoid diverticulosis. Lymph nodes: No abdominal or pelvic lymphadenopathy. Mesentery/Peritoneum: No ascites or mass. Retroperitoneum: No mass. Vasculature: - Abdominal aorta and iliac arteries: Atherosclerotic calcifications without aneurysm. - Celiac and SMA: Patent without stenosis. - Portal venous system (SMV, splenic vein, portal vein and branches): Patent. - Hepatic veins: Patent. Pelvis: No mass, ascites or fluid collection. Uterus is absent Bones/Soft Tissues: No significant finding. Lower thorax: Middle lobe calcified granuloma. No acute abnormality. Print Shop Stenographer (topogram) images: No additional findings. IMPRESSION: No acute abnormality Family Member Caretaker: OSCAR Transcribe Date/Time: Dec 22 2021 3:11P Dictated by : AMANDEEP GUZMAN MD This examination was interpreted and the report reviewed and electronically signed by: AMANDEEP GUZMAN MD on Dec 22 2021 3:18PM EST [id number] Normal [facility] Comprehensive metabolic 2000 panelon 12-22-2021 Albumin [Mass/Vol] 4.6 g/dL Normal 3.9-4.9 [facility] Comment on above: Order Comment: Speci men Type: BLOOD SPECIMEN Ordering Facility: [facility] Address: [address] [place] [address] Performed By: #### S LACT #### [facility] CLIA [id number] [address] ALP [Catalytic activity/Vol] 91 U/L Normal 34-123 [facility] Comment on above: Order Comment: Speci men Type: BLOOD SPECIMEN Ordering Facility: [facility] Address: [address] [place] [address] Performed By: #### S LACT #### [facility] CLIA [id number] [address] ALT [Catalytic activity/Vol] 9 U/L Normal 7-38 [facility] Comment on above: Order Comment: Speci men Type: BLOOD SPECIMEN Ordering Facility: [facility] Address: [address] [place] [address] Performed By: #### S LACT #### [facility] CLIA [id number] [address] Anion gap [Moles/Vol] 12 mmol/L Normal 9-18 [facility] Comment on above: Order Comment: Speci men Type: BLOOD SPECIMEN Ordering Facility: [facility] Address: [address] [place] [address] Performed By: #### S LACT #### [facility] CLIA [id number] [address] AST [Catalytic activity/Vol] 20 U/L Normal 13-35 [facility] Comment on above: Order Comment: Speci men Type: BLOOD SPECIMEN Ordering Facility: [facility] Address: [address] [place] [address] Performed By: #### S LACT #### [facility] CLIA [id number] [address] [place] Bilirubin [Mass/Vol] 0.3 mg/dL Normal 0.2-1.3 [facility] Comment on above: Order Comment: Speci men Type: BLOOD SPECIMEN Ordering Facility: [facility] Address: [address] [place] [address] Performed By: #### S LACT #### [facility] CLIA [id number] [address] [place] Calcium [Mass/Vol] 9.8 mg/dL Normal 8.5-10.2 [facility] Comment on above: Order Comment: Speci men Type: BLOOD SPECIMEN Ordering Facility: [facility] Address: [address] [place] [address] Performed By: #### S LACT #### [facility] CLIA [id number] [address] [place] [address] [place] Chloride [Moles/Vol] 100 mmol/L Normal 97-105 [facility] Comment on above: Order Comment: Speci men Type: BLOOD SPECIMEN Ordering Facility: [facility] Address: [address] [place] [address] Performed By: #### S LACT #### [facility] CLIA [id number] [address] [place] CO2 [Moles/Vol] 26 mmol/L Normal 22-30 [facility] Comment on above: Order Comment: Speci men Type: BLOOD SPECIMEN Ordering Facility: [facility] Address: [address] [place] [address] Performed By: #### S LACT #### [facility] CLIA [id number] [address] [place] [address] [place] Creatinine [Mass/Vol] 0.95 mg/dL Normal 0.58-0.96 [facility] Comment on above: Order Comment: Speci men Type: BLOOD SPECIMEN Ordering Facility: [facility] Address: [address] [address] Performed By: #### S LACT #### [facility] CLIA [id number] [address] [place] [facility] ESTIMATED GLOMERULAR FILTRATION RATE 71 mL/min/1.73m??? Normal >=60 [facility] Comment on above: Order Comment: Fany lee Type: BLOOD SPECIMEN Ordering Facility: [facility] Address: [address] [place] [address] Result Comment: Verónica mated Glomerular Filtration Rate (eGFR) is calculated using the 2020 CKD-EPI creatinine equation. This equation utilizes serum creatinine, sex, and age as parameters. The creatinine assay has traceable calibration to isotope dilution-mass spectrometry. Refer to KDIGO guidelines for clinical interpretation. In patients with unstable renal function, e.g. those with acute kidney injury, the eGFR may not accurately reflect actual GFR. Performed By: #### S LACT #### [facility] CLIA [id number] [address] [place] [address] [place] Glucose [Mass/Vol] 119 mg/dL High 74-99 [facility] Comment on above: Order Comment: Fany lee Type: BLOOD SPECIMEN Ordering Facility: [facility] Address: [address] [place] [address] Result Comment: The [place] Diabetes Association (ADA) provides guidance for cutoff values for fasting glucose and random glucose. The ADA defines fasting as no caloric intake for at least 8 hours. Fasting plasma glucose results between 100 to 125 mg/dL indicate increased risk for diabetes (prediabetes). Fasting plasma glucose results greater than or equal to 126 mg/dL meet the criteria for diagnosis of diabetes. In the absence of unequivocal hyperglycemia, results should be confirmed by repeat testing. In a patient with classic symptoms of hyperglycemia or hyperglycemic crisis, random plasma glucose results greater than or equal to 200 mg/dL meet the criteria for diagnosis of diabetes. Reference: Standards of Medical Care in Diabetes 2016, [place] [employer] Association. Diabetes Care. 2016.39(Suppl 1). Performed By: #### S LACT #### [facility] CLIA [id number] [address] [place] [address] [place] Potassium [Moles/Vol] 3.9 mmol/L Normal 3.7-5.1 [facility] Comment on above: Order Comment: Speci men Type: BLOOD SPECIMEN Ordering Facility: [facility] Address: [address] [place] [address] Performed By: #### S LACT #### [facility] CLIA [id number] [address] Protein [Mass/Vol] 7.8 g/dL Normal 6.3-8.0 [facility] Comment on above: Order Comment: Speci men Type: BLOOD SPECIMEN Ordering Facility: [facility] Address: [address] [place] [address] Performed By: #### S LACT #### [facility] CLIA [id number] [address] Sodium [Moles/Vol] 138 mmol/L Normal 136-144 [facility] Comment on above: Order Comment: Speci men Type: BLOOD SPECIMEN Ordering Facility: [facility] Address: [address] [place] [address] Performed By: #### S LACT #### [facility] CLIA [id number] [address] Urea nitrogen [Mass/Vol] 10 mg/dL Normal 7-21 [facility] Comment on above: Order Comment: Speci men Type: BLOOD SPECIMEN Ordering Facility: [facility] Address: [address] [place] [address] Performed By: #### S LACT #### [facility] CLIA [id number] [address] OF [facility] ECG COMPLETEon 12-22-2021 ECG COMPLETE Ventricular Rate : 7 5 BPM Atrial Rate : 75 BPM P-R Interval : 162 ms QRS Duration : 92 ms Q-T Interval : 414 ms QTC Calculation(Bazett) : 462 ms Calculated P [place] : 71 degrees Calculated R [place] : 70 degrees Calculated T [place] : 155 degrees SINUS RHYTHM WITH PREMATURE SUPRAVENTRICULAR COMPLEXES ST and T WAVE ABNORMALITY, CONSIDER ANTEROLATERAL ISCHEMIA PROLONGED QT ABNORMAL ECG 1402 Confirmed by CHRIS GAFFNEY MD ([id number]), fan mail editor Yareli Montalvo ([id number]) on 12/23/2021 10:16:21 AM NAME : TABITHA FISH PID : [id number] : 1965 Gender : Female Race : ORD : [id number] Procedure Date : Dec 22 2021 13:47:44 Edit Date : Dec 23 2021 10:16:23 Diagnosis: SINUS RHYTHM WITH PREMATURE SUPRAVENTRICULAR COMPLEXES ST and T WAVE ABNORMALITY, CONSIDER ANTEROLATERAL ISCHEMIA PROLONGED QT ABNORMAL ECG 1402 Confirmed by CHRIS GAFFNEY MD ([id number]), fan mail editor Yareli Montalvo ([id number]) on 12/23/2021 10:16:21 AM Test Reason : Chest Pain Location : 1 : ER ED Overread By : CHRIS GAFFNEY MD Edited By : Yareli Montalvo Referred By : , Acquired by : MANISH [facility] ED NOTEon 12-22-2021 ED NOTE HNO ID: [id number] Author: Paulie Warren RN Service: Nursing Author Type: Registered Nurse Type: ED Notes Filed: 12/22/2021 3:46 PM Note Text: Pt discharged to home in stable condition. No noted distress - respirations equal and unlabored. AVS and medications reviewed. Pt verbalized understanding and importance of follow up care. No questions for this RN at this time. [facility] ED NOTE HNO ID: [id number] Author: Evita Ortega RN Service: ? Author Type: Registered Nurse Type: ED Notes Filed: 12/22/2021 12:30 PM Note Text: pt is crying and carrying on in triage about her abd pain she has had for days and states she has been to multiple doctors and they have said nothing is wrong with her. [facility] ED PROV NOTEon 12-22-2021 ED PROV NOTE HNO ID: [id number] Author: Chris Gaffney MD Service: Emergency Medicine Author Type: Physician Type: ED Provider Notes Filed: 12/22/2021 4:08 PM Note Text: ED Provider Note Patient Name: Tabitha Fish : 1965 SERVICE DATE: 12/22/21 History Patient presents with: Abdominal Pain: pt states has been going on for days has been to multiple er's and they have found nothing 56-year-old female presents for abdominal pain. She reports that this is been an ongoing problem for her. Reports that it may have been months for the entire duration of her symptoms. Reports that it comes and goes. Is been seen multiple times in the emergency department. She reports having multiple CT scans. She reports that nobody is unable to find a clear etiology of her symptoms. Has been seen by gastroenterology. Has had a lower scope. Apparently there was no evidence of any issues on the lower scope. She is following up with them next week. Reports that her pain is severe today. Also reports nausea vomiting. Denies fevers or chills. Denies any urinary symptoms. PAST MEDICAL HISTORY Diagnosis Date Chronic obstructive pulmonary disease (COPD) (HCC) Coronary artery disease Heart attack (HCC) Migraine Pancreatitis PAST SURGICAL HISTORY Procedure Laterality Date CHOLECYSTECTOMY HX 1999 HYSTERECTOMY HX 1998 still has ovaries FAMILY HISTORY Problem Relation Age of Onset Diabetes Mother Hypertension Father Diabetes Father Colon Cancer Father Dementia Father Alzheimer's Disease Father Cancer Brother lung Heart Attack Maternal Grandmother 70 Cancer Paternal Grandmother Cancer Paternal Grandfather Social History Tobacco Use Smoking status: Every Day Packs/day: 1.00 Types: Cigarettes Smokeless tobacco: Never Vaping Use Vaping Use: Never used Substance and Sexual Activity Alcohol use: Never Drug use: Never Sexual activity: Not on file ALLERGIES Allergen Reactions Aspirin Anaphylaxis Benadryl [Diphenhyd* Hives Buspar [Buspirone] Intolerance Naproxen Anaphylaxis Toradol [Ketorolac] Hives Ubrelvy [Ubrogepant] Shortness of Breath Review of Systems Constitutional: Negative for chills, diaphoresis, fatigue and fever. HENT: Negative for congestion, ear pain, sinus pain and sore throat. Eyes: Negative for photophobia, pain, redness and visual disturbance. Respiratory: Negative for cough, chest tightness and shortness of breath. Cardiovascular: Negative for chest pain, palpitations and leg swelling. Gastrointestinal: Positive for abdominal pain, nausea and vomiting. Negative for abdominal distention, constipation and diarrhea. Genitourinary: Negative for difficulty urinating, dysuria, flank pain, frequency and urgency. Musculoskeletal: Negative for back pain, neck pain and neck stiffness. Skin: Negative for color change, rash and wound. Neurological: Negative for dizziness, syncope, light-headedness and headaches. Psychiatric/Behavioral: Negative for agitation, behavioral problems and confusion. Physical Exam Vitals BP Pulse Temp Temp src Resp SpO2 Weight Height 12/22/21 1226 12/22/21 1224 12/22/21 1224 12/22/21 1224 12/22/21 1224 12/22/21 1224 12/22/21 1224 -- 136/105 79 36.9 ?C (98.5 ?F) Temporal 18 96 % 79.4 kg (175 lb) Physical Exam Vitals and nursing note reviewed. Constitutional: Appearance: She is well-developed. She is not diaphoretic. HENT: Head: Normocephalic and atraumatic. Right Ear: External ear normal. Left Ear: External ear normal. Eyes: General: No scleral icterus. Right eye: No discharge. Left eye: No discharge. Conjunctiva/sclera: Conjunctivae normal. Pupils: Pupils are equal, round, and reactive to light. Neck: Vascular: No JVD. Trachea: No tracheal deviation. Cardiovascular: Rate and Rhythm: Normal rate and regular rhythm. Heart sounds: Normal heart sounds. No murmur heard. No friction rub. No gallop. Pulmonary: Effort: Pulmonary effort is normal. No respiratory distress. Breath sounds: Normal breath sounds. No stridor. No wheezing or rales. Chest: Chest wall: No tenderness. Abdominal: General: Bowel sounds are normal. There is no distension. Palpations: Abdomen is soft. There is no mass. Tenderness: There is generalized abdominal tenderness. There is no guarding or rebound. Musculoskeletal: General: No tenderness or deformity. Normal range of motion. Cervical back: Normal range of motion and neck supple. Skin: General: Skin is warm. Capillary Refill: Capillary refill takes less than 2 seconds. Coloration: Skin is not pale. Findings: No rash. Neurological: Mental Status: She is alert and oriented to person, place, and time. Sensory: No sensory deficit. Motor: No abnormal muscle tone. Psychiatric: Behavior: Behavior normal. Thought Content: Thought content normal. Judgment: Judgment normal. Diagnostic Testing ED Labs Ordered and Reviewed - No d (more content not included)... Normal [facility] Lipase SerPl-cCncon 12-23-19 22 Lipase [Catalytic activity/Vol] 26 U/L Normal 16-61 [facility] Comment on above: Order Comment: Speci men Type: BLOOD SPECIMEN Ordering Facility: [facility] Address: [address] [place], [place] [address] [address] Performed By: #### S LACT #### [facility] CLIA [id number] [address] SEPSIS LACTATEon 12-22-2021 Lactate [Moles/Vol] 1.0 mmol/L Normal 0.5-2.0 [facility] Comment on above: Order Comment: Speci men Type: BLOOD SPECIMEN Ordering Facility: [facility] Address: [address] [place] [address] Performed By: #### S LACT #### [facility] CLIA [id number] [address] TROPONIN Ton 12-22-2021 Troponin T.cardiac [Mass/Vol] ug/L Normal 0.000-0.[address] [facility] Comment on above: Order Comment: Speci men Type: BLOOD SPECIMEN Ordering Facility: [facility] Address: [address] [place], [place] [id number] Performed By: #### S LACT #### [facility] CLIA [id number] [address] Office Visit (Internal Medic ine)on 11-22-2021 Follow-up visit Diagnoses/Problems Assessed COPD (chronic obstructive pulmonary disease) (496) (J44.9) GERD (gastroesophageal reflux disease) (530.81) (K21.9) Anxiety and depression (300.00,311) (F41.9,F32.A) Orders Anxiety and depression Start: FLUoxetine HCl - 20 MG Oral Capsule; TAKE 1 CAPSULE Daily Rx By: Gabe Mcpherson; Dispense: 30 Days ; #:30 Capsule; Refill: 11;For: Anxiety and depression; PARAS = N; Sent To: [facility]; Last Updated By: System, [employer]; 11/22/2021 9:10:24 AM COPD (chronic obstructive pulmonary disease) Start: Fluticasone-Salmeterol 250-50 MCG/ACT Inhalation Aerosol Powder Breath Activated (Advair Diskus); Inhale 1 puff twice daily Rx By: Gabe Mcpherson; Dispense: 0 Days ; #:1 X 60 Each Pack; Refill: 11;For: COPD (chronic obstructive pulmonary disease); PARAS = N; Sent To: [facility]; Last Updated By: [email or web address]; 11/22/2021 9:10:22 AM GERD (gastroesophageal reflux disease) Start: Famotidine 20 MG Oral Tablet (Pepcid); TAKE 1 TABLET EVERY 12 HOURS DAILY Rx By: Gabe Mcpherson; Dispense: 7 Days ; #:14 Tablet; Refill: 1;For: GERD (gastroesophageal reflux disease); PARAS = N; Sent To: [facility]; Last Updated By: [email or web address]; 11/22/2021 9:10:24 AM Start: Omeprazole 20 MG Oral Capsule Delayed Release; TAKE 1 CAPSULE DAILY EVERY MORNING BEFORE BREAKFAST Rx By: Gabe Mcpherson; Dispense: 30 Days ; #:30 Capsule; Refill: 11;For: GERD (gastroesophageal reflux disease); PARAS = N; Sent To: [facility]; Last Updated By: [email or web address]; 11/22/2021 9:10:23 AM Patient Discussion/Summary COPD/emphysema: Start Advair twice daily. Patient declined pulmonology referral at this time. Anxiety and depression: Patient did tolerate low-dose Prozac so we will increase to 20 mg daily. Follow-up in 1 month ER follow-up/nausea/epigastric pain/chest pressure: Patient underwent extensive cardiac work-up in 2 different ERs with same results. Nothing acute in either work-up. ER note from [facility] scanned into the chart and reviewed. Patient's symptoms are likely secondary to untreated GERD exacerbated by panic attacks. We will start the patient on omeprazole daily with Pepcid for 1 week. Patient encouraged to obtain labs that remain in the system. Chief Complaint Patient here today to be seen for follow up ER ([facility]) on 11-20-21 and 11-21-21 ([facility]), for abdomen discomfort, nausea and chest discomfort. Patient states at this time is only having epigastric tenderness, no nausea or chest discomfort. 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 History of Present IllnessPatient presents in ER follow-up for chest pain. Patient was seen and treated several days ago in [place], [place] emergency department and underwent CTA, CT abdomen pelvis, chest x-ray, EKG, labs and the work-up was relatively unremarkable. Patient was administered Compazine and Pepcid which improved patient's symptoms. CT chest did show emphysema with mucous plugging. Patient then presented again to a different ER for similar and work-up confirmed previous work-up. Patient was seen initially here in July 18. Patient did not obtain labs that were ordered, did not follow-up as planned but did obtain colonoscopy which was unremarkable. Patient continues with cardiology for history of ME, CHF, and hypertension. Currently, patient has no complaints stating that symptoms have resolved. Review of Systems Constitutional: no fever. Cardiovascular: as noted in HPI. Respiratory: as noted in HPI. Gastrointestinal: as noted in HPI. Active Problems Problems Anxiety and depression (300.00,311) (F41.9,F32.A) CHF (congestive heart failure) (428.0) (I50.9) COPD (chronic obstructive pulmonary disease) (496) (J44.9) Encounter for screening colonoscopy (V76.51) (Z12.11) Hypertension (401.9) (I10) Migraines (346.90) (G43.909) Past Medical History Problems History of anxiety (V11.8) (Z86.59) History of panic attacks (V11.8) (Z86.59) History of Primary cervical cancer (V10.41) (Z85.41) Surgical History Problems History of Cholecystectomy History of Hysterectomy History of [place] tooth extraction Family History Mother Family history of diabetes mellitus (V18.0) (Z83.3) Family history of myocardial infarction (V17.3) (Z82.49) Father Family history of Alzheimer's disease (V17.2) (Z82.0) Family history of cardiac disorder (V17.49) (Z82.49) Family history of dementia (V17.2) (Z81.8) Family history of diabetes mellitus (V18.0) (Z83.3) Family history of emphysema (V17.6) (Z82.5) Family history of hypertension (V17.49) (Z82.49) Family history of malignant neoplasm of colon (V16.0) (Z80.0) Social History Problems Cigarette smoker (305.1) (F17.210) No alcohol use No illicit drug use Patient consumes caffeinated coffee (V49.89) (Z78.9) Patient ingests cola containing caffeine (V49.89) (Z78.9) Allergies Medication Benadryl Recorded B (more content not included)... Normal [employer] Tobacco Screening.on Adult depression screening assessment No [facility] Work Phone: Fall risk assessment a) No falls within the last year [facility] Work Phone: Tobacco use status [facility] a) Yes [facility] Work Phone: Colonoscopyon 08-23-2021 Colonoscopy PATIENTNAME Patient Name: Tabitha Fish EXAMDATE Procedure Date: 08/23/2021 8:27 AM PATIENTID PATIENTACCOUNTNUM PATIENTDOB Date of : 1965 ADMITTYPE Admit Type: Outpatient PATIENTROOM Site: [place] [address] ETHNICITY Ethnicity: Not or RACE Race: White PROVDR Attending MD: Jarrett Mueller DO ENDOPROCEDURENAME Procedure: Colonoscopy INDICATION Indications: Screening in patient at increased risk: Colorectal cancer in father 60 or older PRIMARYPROVIDER Providers: Jarrett Mueller DO (Doctor), Mayra Story RN (Nurse), Shabbir Miles, [employer] Programmer Remote EDREFPROVIDER Referring: Gabe Mcpherson CURRENT_MEDS Medicines: Midazolam 5 mg IV, Meperidine 50 mg IV, Glucagon 1 mg IV COMPLIC Complications: No immediate complications. ENDOPROCEDURETEXT Procedure: Pre-Anesthesia Assessment: - Prior to the procedure, a History and Physical was performed, and patient medications and allergies were reviewed. The patient is competent. The risks and benefits of the procedure and the sedation options and risks were discussed with the patient. All questions were answered and informed consent was obtained. Patient identification and proposed procedure were verified by the physician in the pre-procedure area. Mental Status Examination: alert and oriented. Airway Examination: normal oropharyngeal airway and neck mobility. Respiratory Examination: clear to auscultation. CV Examination: normal. Prophylactic Antibiotics: The patient does not require prophylactic antibiotics. Prior Anticoagulants: The patient has taken no anticoagulant or antiplatelet agents. ASA Grade Assessment: II - A patient with mild systemic disease. After reviewing the risks and benefits, the patient was deemed in satisfactory condition to undergo the procedure. The anesthesia plan was to use moderate sedation / analgesia (conscious sedation). Immediately prior to administration of medications, the patient was re-assessed for adequacy to receive sedatives. The heart rate, respiratory rate, oxygen saturations, blood pressure, adequacy of pulmonary ventilation, and response to care were monitored throughout the procedure. The physical status of the patient was re-assessed after the procedure. After I obtained informed consent, the scope was passed under direct vision. Throughout the procedure, the patient's blood pressure, pulse, and oxygen saturations were monitored continuously. The pediatric colonoscope was introduced through the anus and advanced to the terminal ileum, with identification of the appendiceal orifice and IC valve. The colonoscopy was performed without difficulty. The patient tolerated the procedure well. The quality of the bowel preparation was good. The terminal ileum, ileocecal valve, appendiceal orifice, and rectum were photographed. FINDING Findings: The perianal and digital rectal examinations were normal. Pertinent negatives include normal sphincter tone and no palpable rectal lesions. The terminal ileum appeared normal. The entire examined colon appeared normal on direct and retroflexion views. SEDATION Moderate Sedation: Moderate (conscious) sedation was administered by the endoscopy nurse and supervised by the endoscopist. The following parameters were monitored: oxygen saturation, heart rate, blood pressure, and response to care. Total physician intraservice time was 21 minutes. EBL Estimated Blood Loss: Estimated blood loss: none. IMPRESS Impression: - The examined portion of the ileum was normal. - The entire examined colon is normal on direct and retroflexion views. - No specimens collected. ENDORECOMMENDATION Recommendation: - Patient has a contact number available for emergencies. The signs and symptoms of potential delayed complications were discussed with the patient. Return to normal activities tomorrow. Written discharge instructions were provided to the patient. - Resume previous diet. - Continue present medications. - Repeat colonoscopy in 5 years for screening purposes. - Return to referring physician as previously scheduled. CPT_CODES Procedure Code(s): --- Professional --- G0105, Colorectal cancer screening; colonoscopy on individual at high risk G0500, Moderate sedation services provided by the same physician or other qualified health nursing care attendant performing a gastrointestinal endoscopic service that sedation supports, requiring the presence of an independent trained observer to assist in the monitoring of the patient's level of consciousness and physiological status; initial 15 minutes of intra-service time; patient age 5 years or older (additional time may be reported with 94510, as appropriate) ICD_CODES Diagnosis Code(s): --- Professional --- Z12.11, Encounter for screening for malignant neoplasm of colon (more content not included)... [facility] Office Visit (Internal Medic ine)on 07-20-2021 Follow-up visit Diagnoses/Problems Health Maintenance/Risks Encounter for preventive health examination (V70.0) (Z00.00) Assessed COPD (chronic obstructive pulmonary disease) (496) (J44.9) Anxiety and depression (300.00,311) (F41.9,F32.A) Hypertension (401.9) (I10) CHF (congestive heart failure) (428.0) (I50.9) Encounter for screening colonoscopy (V76.51) (Z12.11) Migraines (346.90) (G43.909) Orders Anxiety and depression Start: FLUoxetine HCl - 10 MG Oral Tablet; TAKE 1 TABLET BY MOUTH EVERYDAY AT BEDTIME Rx By: Gabe Mcpherson; Dispense: 30 Days ; #:30 Tablet; Refill: 3;For: Anxiety and depression; PARAS = N; Verified Transmission to [facility] #[facility]; Last Updated By: [employer]; 07/20/2021 10:22:51 AM Start: hydrOXYzine HCl - 25 MG Oral Tablet; take 1 tab every 6 hours as needed for anxiety/insomnia/nausea Rx By: Gabe Mcpherson; Dispense: 0 Days ; #:30 Tablet; Refill: 2;For: Anxiety and depression; PARAS = N; Verified Transmission to [facility] #69; Last Updated By: [employer]; 07/20/2021 10:22:48 AM CHF (congestive heart failure) Complete Blood Count; Status:Active; Requested for:20Jul2021; Perform:Lab Services - Lab To Draw (Blood Test); Due:18Oct2021;Ordered; For:CHF (congestive heart failure); Ordered By:Gabe Mcpherson; Comprehensive Metabolic Panel; Status:Active; Requested for:20Jul2021; Perform:Lab Services - Lab To Draw (Blood Test); Due:18Oct2021;Ordered; For:CHF (congestive heart failure); Ordered By:Gabe Mcpherson; Hemoglobin A1C; Status:Active; Requested for:20Jul2021; Perform:Lab Services - Lab To Draw (Blood Test); Due:18Oct2021;Ordered; For:CHF (congestive heart failure); Ordered By:Gabe Mcpherson; Lipid Panel; Status:Active; Requested for:20Jul2021; Perform:Lab Services - Lab To Draw (Blood Test); Due:18Oct2021;Ordered; For:CHF (congestive heart failure); Ordered By:Gabe Mcpherson; TSH WITH REFLEX TO FREE T4 IF ABNORMAL; Status:Active; Requested for:20Jul2021; Perform:Lab Services - Lab To Draw (Blood Test); Due:18Oct2021;Ordered; For:CHF (congestive heart failure); Ordered By:Gabe Mcpherson; Encounter for screening colonoscopy Gastroenterology Referral Evaluation and Treatment Evaluate AND Treat Status: Hold For - Scheduling Requested for: 20Jul2021 Ordered;For: Encounter for screening colonoscopy; Ordered By: Gabe Mcpherson Performed: Due: 18Oct2021 Health Maintenance Obstetrics and Gynecology Referral Evaluation and Treatment Evaluate AND Treat Status: Complete Done: 20Jul2021 Ordered;For: Health Maintenance; Ordered By: Gabe Mcpherson Performed: Due: 18Oct2021; Last Updated By: Estelle Ayala; 07/20/2021 10:28:29 AM Migraines Start: Wxrzgtymgm-QQLS-Lvzijovh 50-300-40 MG Oral Capsule; TAKE 1 CAPSULE Every 6 hours PRN Rx By: Gabe Mcpherson; Dispense: 5 Days ; #:20 Capsule; Refill: 0;For: Migraines; PARAS = N; Verified Transmission to [facility]; Msg to Pharmacy: G43.9; Last Updated By: Cheam Saleem; 07/20/2021 10:22:50 AM SocHx: Cigarette smoker Tobacco Use Screening; Status:Complete; Done: 20Jul2021 Perform:Not Applicable;Ordered; For:SocHx: Cigarette smoker; Ordered By:Claribel Scott; Patient Discussion/Summary Hypertension/history of ME: Continue with cardiology and continue beta-kathie/Lasix/lisinopri l. Migraine: Fioricet written. OARRS reviewed, appropriate, and consistent with provided history Anxiety and depression/PTSD: Patient agreed to attempt Prozac. Previous attempt with Zoloft was stopped due to diarrhea. Currently, patient is taking more than the prescribed dose of ukcj-fcc-xpdynzq sleep aids so hydroxyzine was offered and accepted. Patient advised this could also be used for anxiety breakthrough if needed. We will have the patient follow-up in 1 month regarding this. Health maintenance: CBC, CMP, A1c, lipids, and TSH ordered. 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 This was arranged. Chief Complaint Patient here today to get established as a new patient. Patient states it has been since 11/2020 since last seen by a PCP. Patient currently having a migraine on the left back side of head x 3 days. Patient has tried taking OTC Tylenol without success. Patient states has hx of migraines x 3 years. Patient also mentions dx with anxiety/panic attacks and not taking any medications. Patient state she used to be on several medications but has discontinued them. History of Present IllnessPt presents to establish care. Patient has a history of ME, hypertension, and CHF. This is all managed and followed by cardiology. Patient takes Lasix, lisinopril, and carvedilol and management of this. Patient has history of migraine headaches. Patient is attempted triptans and injections which were ineffective. Patient reports the only effective medication was Fioricet. Patient is currently in the midst of a 3-day migraine. Patient reports the pain is in the ba (more content not included)... Normal [facility] ED NOTEon 07-06-2021 ED NOTE HNO ID: [id number] Author: Madison Stanley RN Service: Nursing Author Type: Registered Nurse Type: ED Notes Filed: 07/06/2021 11:09 AM Note Text: Patient informed: the name of medication, why we are giving it, possible side effects, what they may expect to feel, and was offered a chance to ask questions, prior to the administration of NaCl, Decadron, Zofran, Haldol [facility] ED NOTE HNO ID: [id number] Author: Madison Stanley RN Service: Nursing Author Type: Registered Nurse Type: ED Notes Filed: 07/06/2021 11:02 AM Note Text: Pt arrives with c/o migraine X2 days. Pt reports pain is similar to previous headaches. Pt reports some nausea, denies vomiting. Has prescription at home that she has no refill available. [facility] ED PROV NOTEon 07-06-2021 ED PROV NOTE HNO ID: [id number] Author: Ling Pendleton MD Service: Emergency Medicine Author Type: Physician Type: ED Provider Notes Filed: 07/06/2021 11:56 AM Note Text: ED Provider Note Patient Name: Tabitha Fish : 1965 SERVICE DATE: 07/06/21 History Patient presents with: Headache: hx of migraines 55-year-old female with a past medical history significant for coronary artery disease, COPD, pancreatitis, and migraine headaches who presents the emergency department for evaluation for headache that has been present for the last 2 days that is intractable. Patient states she is supposed to be on Fioricet at home for migraine headaches but has not had one in the last few months hence did not refill her medications. She states as a result she had no treatments at home except for nubk-vge-lhduqdx medications that did not help her headache. She states the headache is similar to other headaches she has had in the past. She denies any focal neurologic deficits with a headache but endorses photophobia which she states is similar to whenever she has migraine headaches. Patient denies fevers, chills, vision changes, facial droop, drooling, chest pain, palpitations, diaphoresis, shortness of breath, abdominal pain, nausea, vomiting, diarrhea, or focal numbness or weakness of isolated extremities. 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 PAST MEDICAL HISTORY Diagnosis Date - Chronic obstructive pulmonary disease (COPD) (HCC) - Coronary artery disease - Heart attack (HCC) - Migraine - Pancreatitis PAST SURGICAL HISTORY Procedure Laterality Date - CHOLECYSTECTOMY HX 1999 - HYSTERECTOMY HX 1998 still has ovaries FAMILY HISTORY Problem Relation Age of Onset - Diabetes Mother - Hypertension Father - Diabetes Father - Colon Cancer Father - Dementia Father - Alzheimer's Disease Father - Cancer Brother lung - Heart Attack Maternal Grandmother 70 - Cancer Paternal Grandmother - Cancer Paternal Grandfather Social History Tobacco Use - Smoking status: Current Every Day Smoker Packs/day: 1.00 Types: Cigarettes - Smokeless tobacco: Never Used Vaping Use - Vaping Use: Never used Substance and Sexual Activity - Alcohol use: Never - Drug use: Never - Sexual activity: Not on file ALLERGIES Allergen Reactions - Aspirin Anaphylaxis - Benadryl [Diphenhyd* Hives - Buspar [Buspirone] Intolerance - Naproxen Anaphylaxis - Toradol [Ketorolac] Hives - Ubrelvy [Ubrogepant] Shortness of Breath Review of Systems Constitutional: Negative for chills, fatigue and fever. HENT: Negative for ear discharge, ear pain, mouth sores, rhinorrhea, sinus pressure, sneezing, sore throat and tinnitus. Eyes: Positive for photophobia. Negative for discharge, itching and visual disturbance. Respiratory: Negative for cough, shortness of breath, wheezing and stridor. Cardiovascular: Negative for chest pain, palpitations and leg swelling. Gastrointestinal: Negative for abdominal distention, blood in stool, constipation and diarrhea. Endocrine: Negative for cold intolerance and heat intolerance. Genitourinary: Negative for dysuria, flank pain, frequency and hematuria. Musculoskeletal: Negative for back pain, gait problem and joint swelling. Skin: Negative for color change, pallor and rash. Neurological: Positive for headaches. Negative for dizziness, syncope, weakness and light-headedness. Psychiatric/Behavioral: Negative for confusion, hallucinations, sleep disturbance and suicidal ideas. Physical Exam Vitals [07/06/21 1057] BP Pulse Temp Temp src Resp SpO2 Weight Height 146/103 (!) 95 36.3 ?C (97.4 ?F) Temporal 16 98 % 77.1 kg (170 lb) 1.676 m (5' 6) Physical Exam Vitals and nursing note reviewed. HENT: Head: Normocephalic and atraumatic. Right Ear: External ear normal. Left Ear: External ear normal. Mouth/Throat: Mouth: Mucous membranes are moist. Pharynx: Oropharynx is clear. Eyes: Pupils: Pupils are equal, round, and reactive to light. Neck: Trachea: No tracheal deviation. Cardiovascular: Rate and Rhythm: Normal rate and regular rhythm. Heart sounds: Normal heart sounds. Pulmonary: Effort: No respiratory distress. Breath sounds: Normal breath sounds. No stridor. No wheezing. Abdominal: General: There is no distension. Palpations: There is no mass. Tenderness: There is no abdominal tenderness. There is no guarding or rebound. Musculoskeletal: General: No tenderness or deformity. Cervical back: Normal range of motion. Lymphadenopathy: Cervical: No cervical adenopathy. Skin: General: Skin is warm and dry. Capillary Refill: Capillary refill takes less than 2 seconds. Coloration: Skin is not pale. Findings: No rash. Neurological: Mental Status: She is alert and oriented to person, place, and time. Cranial Nerves: No cranial nerve deficit. Sensory: No sensory deficit. (more content not included)... [facility] ED NOTEon 05-17-2021 ED NOTE HNO ID: [id number] Author: India Sommer RN Service: Emergency Medicine Author Type: Registered Nurse Type: ED Notes Filed: 05/17/2021 1:03 AM Note Text: Patient informed: the name of medication, why we are giving it, possible side effects, what they may expect to feel, and was offered a chance to ask questions, prior to the administration of tramadol [facility] ED NOTE HNO ID: [id number] Author: India Sommer RN Service: Emergency Medicine Author Type: Registered Nurse Type: ED Notes Filed: 05/16/2021 11:37 PM Note Text: Xray done at bedside [facility] ED NOTE HNO ID: [id number] Author: India Sommer RN Service: Emergency Medicine Author Type: Registered Nurse Type: ED Notes Filed: 05/16/2021 10:43 PM Note Text: Dr. Carpio at bedside for exam [facility] ED PROV NOTEon 05-17-2021 ED PROV NOTE HNO ID: [id number] Author: Jonah Carpio MD Service: Emergency Medicine Author Type: Physician Type: ED Provider Notes Filed: 05/17/2021 5:55 AM Note Text: ED Provider Note Patient Name: Tabitha Fish SERVICE DATE: 05/16/21 History Patient presents with: Chest Pain Presents the emergency room with concerns over left-sided chest pain accompanied by her today. Patient states has had his episodes intermittently since approximately 10 AM this morning after awakening. Patient describes as a pinpoint pressure, tightness sensation, lasting 2 or 3 minutes, directly under her left breast. Patient has completely pain-free intervals. Patient has no pain at present. Patient has no cough, congestion, dyspnea. Patient has no history of PE, DVT. Patient notes multiple stressors, including change in family situation, adopting grand child. Patient took Tylenol without relief of symptoms earlier today, and aspirin. Chest Pain Pain location: L chest Pain quality: pressure Pain radiates to: Does not radiate Pain severity: No pain Onset quality: Sudden Timing: Intermittent Progression: Waxing and waning Chronicity: New Context: at rest Context: not breathing, not eating, not lifting and not movement Relieved by: Nothing Worsened by: Certain positions Ineffective treatments: Aspirin (tylenol) Associated symptoms: anxiety and fatigue Associated symptoms: no abdominal pain, no dizziness, no fever, no palpitations, no PND and no shortness of breath Risk factors: hypertension and smoking Risk factors: no control, no coronary artery disease, no diabetes mellitus, not male, not , no prior DVT/PE and no surgery PAST MEDICAL HISTORY Diagnosis Date - Chronic obstructive pulmonary disease (COPD) (HCC) - Coronary artery disease - Heart attack (HCC) - Migraine - Pancreatitis PAST SURGICAL HISTORY Procedure Laterality Date - CHOLECYSTECTOMY HX 1999 - HYSTERECTOMY HX 1998 still has ovaries FAMILY HISTORY Problem Relation Age of Onset - Diabetes Mother - Hypertension Father - Diabetes Father - Colon Cancer Father - Dementia Father - Alzheimer's Disease Father - Cancer Brother lung - Heart Attack Maternal Grandmother 70 - Cancer Paternal Grandmother - Cancer Paternal Grandfather Social History Tobacco Use - Smoking status: Current Every Day Smoker Packs/day: 1.00 Types: Cigarettes - Smokeless tobacco: Never Used Vaping Use - Vaping Use: Never used Substance and Sexual Activity - Alcohol use: Never - Drug use: Never - Sexual activity: Not on file ALLERGIES Allergen Reactions - Aspirin Anaphylaxis - Benadryl [Diphenhyd* Hives - Buspar [Buspirone] Intolerance - Naproxen Anaphylaxis - Toradol [Ketorolac] Hives - Ubrelvy [Ubrogepant] Shortness of Breath Review of Systems Constitutional: Positive for fatigue. Negative for fever. Respiratory: Negative for shortness of breath. Cardiovascular: Positive for chest pain. Negative for palpitations and PND. Gastrointestinal: Negative for abdominal pain. Neurological: Negative for dizziness. All other systems reviewed and are negative. Physical Exam Vitals [05/16/212151] BP Pulse Temp Temp src Resp SpO2 Weight Height 152/108 (!) 110 36.5 ?C (97.7 ?F) Temporal 18 98 % 72.6 kg (160 lb) 1.702 m (5' 7) Physical Exam Vitals and nursing note reviewed. Constitutional: General: She is not in acute distress. Appearance: Normal appearance. She is not ill-appearing or toxic-appearing. HENT: Head: Normocephalic and atraumatic. Eyes: General: Right eye: No discharge. Left eye: No discharge. Neck: Vascular: No JVD. Cardiovascular: Rate and Rhythm: Normal rate and regular rhythm. Heart sounds: Normal heart sounds. Pulmonary: Effort: No respiratory distress. Breath sounds: Decreased breath sounds present. Comments: Dry coarse cough Musculoskeletal: Cervical back: Normal range of motion. Right lower leg: No edema. Left lower leg: No edema. Skin: General: Skin is warm and dry. Neurological: General: No focal deficit present. Mental Status: She is alert and oriented to person, place, and time. Mental status is at baseline. Psychiatric: Mood and Affect: Mood normal. Behavior: Behavior normal. Diagnostic Testing ED Labs Ordered and Reviewed COMP METABOLIC PANEL - Abnormal; Notable for the following components: Result Value Ref Range Glucose 106 (*) 74 - 99 mg/dL All other components within normal limits NT PRO BNP - Abnormal; Notable for the following components: NT Pro BNP 672 (*) <125 pg/mL All other components within normal limits LIPASE BLD - Normal HIGH SENSITIVITY TROPONIN T - Normal CBC - Normal HIGH SENSITIVITY TROPONIN T Procedures ED Course / Clinical Impression Clinical Impressions as of 05/17/21 0553 Chest pain, unspecified type MDM / Disposition / Plan This a 55-year (more content not included)... [facility] ED NOTEon 05-16-2021 ED NOTE HNO ID: [id number] Author: India Sommer, CIPRIANO Service: Emergency Medicine Author Type: Registered Nurse Type: ED Notes Filed: 05/16/2021 9:58 PM Note Text: Pt to ED with c/o pain to left lower chest area that started this morning. Worse with movement at times. No n/v. No sob. [facility] ED NOTEon 02-22-2021 ED NOTE HNO ID: [id number] Author: Matthias Lewis RN Service: Emergency Medicine Author Type: Registered Nurse Type: ED Notes Filed: 02/22/2021 11:51 AM Note Text: Patient Call Back Information ? How are you doing ? better ? Did we appropriately manage your pain? Yes ? Did you understand your discharge instructions? Yes ? Did you get your prescriptions filled? ? Were you able to make a follow-up appointment with your physician? No ? Were you comfortable during your stay here? Yes ? Did a member of the ER nursing team round on you during your visit? Yes ? You will receive a patient satisfaction survey in the mail in the nest 2 weeks, please take the time to fill out the survey as your input from your ER visit is very important to us. Yes ? Can we do anything else to help you? No [facility] ED NOTE HNO ID: [id number] Author: Natasha Ramirez RN Service: Emergency Medicine Author Type: Registered Nurse Type: ED Notes Filed: 02/21/2021 10:22 PM Note Text: Dc instr to fu w pmd, return prn, meds as rxd. Verb und, agreeable to plan. Ambulates from ER. [facility] ED NOTEon 02-21-2021 ED NOTE HNO ID: [id number] Author: Ning Lomax RN Service: Emergency Medicine Author Type: Registered Nurse Type: ED Notes Filed: 02/21/2021 9:36 PM Note Text: Pt reports pain increasing. Provider aware. Monitor for effectiveness of protonix. [facility] ED NOTE HNO ID: [id number] Author: Ning Lomax RN Service: Emergency Medicine Author Type: Registered Nurse Type: ED Notes Filed: 02/21/2021 9:28 PM Note Text: [facility] ED NOTE HNO ID: [id number] Author: Ning Lomax RN Service: Emergency Medicine Author Type: Registered Nurse Type: ED Notes Filed: 02/21/2021 8:47 PM Note Text: Pt in bed with siderail up x1, pain improving with medication. Call light in reach. [facility] ED NOTE HNO ID: [id number] Author: Ning Lomax RN Service: Emergency Medicine Author Type: Registered Nurse Type: ED Notes Filed: 02/21/2021 8:50 PM Note Text: Pt comes in stating mid abdominal pain x approx 4 days, worsening tonight. She states she has hx of chronic pancreatitis for the last 5 years. Pain usually controlled at home with tylenol but not helping with her pain today. Denies chest pain and shortness of breath and states pain is same as past pancreatitis pain. She is alert and oriented. Abdomen tender to touch. VS as charted. She sits at side of bed on assessment. Pain worse when lying down. Moderate distress r/t pain. Call light in reach. At bedside with pt performing nursing tasks. Safety maintained. [facility] ED PROV NOTEon 02-21-2021 ED PROV NOTE HNO ID: [id number] Author: Windy Santizo DO Service: Emergency Medicine Author Type: Physician Type: ED Provider Notes Filed: 02/22/2021 1:58 AM Note Text: ED Provider Note Patient Name: Tabitha Fish SERVICE DATE: 02/21/21 History Patient presents with: Abdominal Pain Tabitha Fish is a 55 year old female with history of pancreatitis who presents with Abdominal Pain. - Symptoms began 4 days prior to arrival. - Severity: 02/05 - Timing: constant - Quality: sore - Abdominal Pain is exacerbated by eating and drinking. - Abdominal Pain is not exacerbated by rest. - Symptoms are associated with nausea. - Symptoms are not associated with chest pain, chills, diarrhea, fever, rash, shortness of breath, vomiting. - Improved by nothing. - Not improved by anything. Patient presents with epigastric abdominal pain that started 4 days ago. States feels similar to when she had pancreatitis in the past. States she does not have a gallbladder and does not drink alcohol. She states that she is nauseated, no vomiting or diarrhea. States pain is worse with eating or drinking. No dark or bloody stools. No chest pain or shortness of breath. PAST MEDICAL HISTORY Diagnosis Date - Migraine - Pancreatitis PAST SURGICAL HISTORY Procedure Laterality Date - CHOLECYSTECTOMY HX 1999 - HYSTERECTOMY HX 1998 still has ovaries FAMILY HISTORY Problem Relation Age of Onset - Diabetes Mother - Hypertension Father - Diabetes Father - Colon Cancer Father - Dementia Father - Alzheimer's Disease Father - Cancer Brother lung - Heart Attack Maternal Grandmother 70 - Cancer Paternal Grandmother - Cancer Paternal Grandfather Social History Tobacco Use - Smoking status: Current Every Day Smoker Packs/day: 1.00 Types: Cigarettes - Smokeless tobacco: Never Used Vaping Use - Vaping Use: Never used Substance and Sexual Activity - Alcohol use: Never - Drug use: Never - Sexual activity: Not on file ALLERGIES Allergen Reactions - Aspirin Anaphylaxis - Benadryl [Diphenhyd* Hives - Buspar [Buspirone] Intolerance - Naproxen Anaphylaxis - Toradol [Ketorolac] Hives - Ubrelvy [Ubrogepant] Shortness of Breath Review of Systems Constitutional: Negative for chills and fever. HENT: Negative for sore throat and trouble swallowing. Respiratory: Negative for cough and shortness of breath. Cardiovascular: Negative for chest pain. Gastrointestinal: Positive for abdominal pain and nausea. Negative for diarrhea and vomiting. Genitourinary: Negative for dysuria, flank pain, hematuria and pelvic pain. Musculoskeletal: Negative for back pain. Skin: Negative for rash. Neurological: Negative for dizziness, syncope, weakness and numbness. Psychiatric/Behavioral: Negative for agitation and confusion. Physical Exam Vitals BP Pulse Temp Temp src Resp SpO2 Weight Height 02/21/21200402/21/21200202/21/21200202/21/21200202/21/21200202/21/21200202/21/212002 -- (!) 141/111 (!) 95 36.1 ?C (97 ?F) Temporal 20 97 % 77.1 kg (170 lb) Physical Exam Vitals and nursing note reviewed. Constitutional: General: She is not in acute distress. Appearance: She is not ill-appearing, toxic-appearing or diaphoretic. HENT: Head: Normocephalic and atraumatic. Mouth/Throat: Mouth: Mucous membranes are moist. Eyes: General: No scleral icterus. Conjunctiva/sclera: Conjunctivae normal. Cardiovascular: Rate and Rhythm: Normal rate and regular rhythm. Pulses: Normal pulses. Pulmonary: Effort: Pulmonary effort is normal. Breath sounds: Decreased breath sounds present. Abdominal: General: Abdomen is flat. Bowel sounds are normal. There is no distension. Palpations: Abdomen is soft. Tenderness: There is abdominal tenderness in the epigastric area. There is no right CVA tenderness, left CVA tenderness, guarding or rebound. Negative signs include Agudelo's sign and McBurney's sign. Musculoskeletal: Right lower leg: No edema. Left lower leg: No edema. Skin: General: Skin is warm and dry. Capillary Refill: Capillary refill takes less than 2 seconds. Neurological: General: No focal deficit present. Mental Status: She is alert and oriented to person, place, and time. GCS: GCS eye subscore is 4. GCS verbal subscore is 5. GCS motor subscore is 6. Psychiatric: Mood and Affect: Mood normal. Behavior: Behavior normal. Diagnostic Testing ED Labs Ordered and Reviewed - No data to display Procedures ED Course / Clinical Impression Clinical Impressions as of Feb 22 149 Epigastric abdominal pain ALIZE (acute kidney injury) (HCC) MDM / Disposition / Plan Labs, EKG, chest x-ray and CT abdomen pelvis ordered. Patient medicated for pain. Labs Reviewed COMP METABOLIC PANEL - Abnormal; Notable for the following components: Glucose 110 (*) Creatinine 1.18 (*) All other components within normal limits LIPASE BLD - No (more content not included)... Normal [facility] Basic metabolic 2000 panelOr dered By: Janette Erwin on 10-31-2020 Anion gap [Moles/Vol] 9 mmol/L Low 10 - 2 0 mmol/L [facility] Calcium [Mass/Vol] 8.7 mg/dL 8.4 - 10. 2 mg/dL [facility] Chloride [Moles/Vol] 106 mmol/L 98 - 10 8 mmol/L [facility] Creatinine [Mass/Vol] 0.76 mg/dL 0.40 - 1.10 [facility] GFR/1.73 sq M.predicted CKD-EPI (S/P/Bld) [Vol rate/Area] 89 >=60 mL/min/1.7 3 m2 [facility] Glucose [Mass/Vol] 98 mg/dL 65 - 99 mg/dL [facility] HCO3 [Moles/Vol] 27 mmol/L 21 - 32 mmol/L [facility] Interpretation and review of laboratory results Abnormal [facility] Potassium [Moles/Vol] 3.8 mmol/L 3.5 - 5.1 mmol/L [facility] Sodium [Moles/Vol] 138 mmol/L 135 - 145 mmol/L [facility] Urea nitrogen [Mass/Vol] 16 mg/dL 8 - 25 mg/dL [facility] Urea nitrogen/Creatinine [Mass ratio] 21.1 mg/mg High [facility] The eGFR should be u sed for monitoring renal function only and not for medication dosing. [facility] CT PULMONARY ARTERIESOrdered By: Wilbert Decker on 10-31-2020 1. No evidence for a cute mediastinal process or obvious pulmonary embolism. 2. No evidence for thoracic lymphadenopathy. 3. No evidence of infiltrate or effusion. Chronic changes and findings of mild COPD noted. Workstation ID: [id number] [facility] EXAMINATION: CT PULMONARY ARTERIES HISTORY: ORDERING SYSTEM PROVIDED HISTORY: PE suspected, intermediate prob, positive D-dimer, TECHNOLOGIST PROVIDED HISTORY: Illness/Other Reason for exam: chest pain, recent ME Encounter Type: Initial Additional signs and symptoms: elevated d-dimer ORDERING SYSTEM PROVIDED DIAGNOSIS CODES: R07.9 Chest pain, unspecified type I25.10 Coronary artery disease, unspecified vessel or lesion type, unspecified whether angina present, unspecified whether [place] or transplanted heart Z86.79 H/O CHF COMPARISON: Portable chest from 10/30/2020. TECHNIQUE: CT angiography of the pulmonary arteries following the administration of intravenous contrast. Coronal and sagittal MIP images were performed. Dose reduction techniques were achieved by using automated exposure control and/or adjustment of mA and/or kV according to patient size and/or use of iterative reconstruction technique. CONTRAST: IOPAMIDOL 76 % INTRAVENOUS SOLUTION - 75 mL, FINDINGS: Soft tissues of the base of the neck and supraclavicular regions are unremarkable. Thyroid gland is unremarkable. Trachea and esophagus are unremarkable. Gastroesophageal junction is unremarkable. Limited views of the upper abdomen show no gross defects. The gallbladder has been removed. The heart shows no gross enlargement or pericardial effusion. The great vessels are unremarkable. No acute mediastinal process is noted. No filling defects noted to suggest pulmonary embolism. No axillary, mediastinal or hilar lymphadenopathy is noted. No pneumothorax is noted. Slight chronic changes noted in the middle lower lung zones. No suspicious nodule or infiltrate or effusion or pneumothorax is noted. Chronic changes and findings of mild COPD are noted. Bone density is unremarkable. No bony lesions or advanced degenerative changes are noted. Bone density is normal. Mild degenerative changes of the mid and lower aspects of the thoracic spine. [facility] Interface, Rad In Fu ji Speechq - 10/31/2020 12:58 AM EDT EXAMINATION: CT PULMONARY ARTERIES HISTORY: ORDERING SYSTEM PROVIDED HISTORY: PE suspected, intermediate prob, positive D-dimer, TECHNOLOGIST PROVIDED HISTORY: Illness/Other Reason for exam: chest pain, recent ME Encounter Type: Initial Additional signs and symptoms: elevated d-dimer ORDERING SYSTEM PROVIDED DIAGNOSIS CODES: R07.9 Chest pain, unspecified type I25.10 Coronary artery disease, unspecified vessel or lesion type, unspecified whether angina present, unspecified whether [place] or transplanted heart Z86.79 H/O CHF COMPARISON: Portable chest from 10/30/2020. TECHNIQUE: CT angiography of the pulmonary arteries following the administration of intravenous contrast. Coronal and sagittal MIP images were performed. Dose reduction techniques were achieved by using automated exposure control and/or adjustment of mA and/or kV according to patient size and/or use of iterative reconstruction technique. CONTRAST: IOPAMIDOL 76 % INTRAVENOUS SOLUTION - 75 mL, FINDINGS: Soft tissues of the base of the neck and supraclavicular regions are unremarkable. Thyroid gland is unremarkable. Trachea and esophagus are unremarkable. Gastroesophageal junction is unremarkable. Limited views of the upper abdomen show no gross defects. The gallbladder has been removed. The heart shows no gross enlargement or pericardial effusion. The great vessels are unremarkable. No acute mediastinal process is noted. No filling defects noted to suggest pulmonary embolism. No axillary, mediastinal or hilar lymphadenopathy is noted. No pneumothorax is noted. Slight chronic changes noted in the middle lower lung zones. No suspicious nodule or infiltrate or effusion or pneumothorax is noted. Chronic changes and findings of mild COPD are noted. Bone density is unremarkable. No bony lesions or advanced degenerative changes are noted. Bone density is normal. Mild degenerative changes of the mid and lower aspects of the thoracic spine. IMPRESSION: 1. No evidence for acute mediastinal process or obvious pulmonary embolism. 2. No evidence for thoracic lymphadenopathy. 3. No evidence of infiltrate or effusion. Chronic changes and findings of mild COPD noted. Workstation ID: [id number] [facility] ECG 12-LEADOrdered By: Farzana Lopez on 10-31-2020 Atrial Rate 83 BPM [facility] P [place] 77 degrees [facility] P-R Interval 178 ms [facility] Q-T Interval 440 ms [facility] QRS Duration 154 ms [facility] QTC Calculation (Bezet) 517 ms [facility] R [place] 83 degrees [facility] T [place] 162 degrees [facility] Ventricular Rate 83 BPM [facility] Normal sinus rhythm Left bundle branch block Abnormal ECG ECG Cart Interpretation see physician note for interpretation. Confirmed by Deepika Aldana ([id number]) on 10/31/2020 2:20:30 PM [facility] EKGOrdered By: Teja juarez on 10-31-2020 Ordered by an unspec ified provider. [facility] No Panel InformationOrdered By: Janette Erwin on 10-31-2020 [facility] TROPONINOrdered By: Janette fuentes on 10-31-2020 Interp Troponin I Delta Change No biomarker evidence of cardiac injury. [facility] Troponin I.cardiac [Mass/Vol] ng/mL <=45 ng/L [facility] Interp Troponin I Delta Change No biomarker evidence of cardiac injury. [facility] Troponin I.cardiac [Mass/Vol] ng/mL <=45 ng/L [facility] Basic metabolic 2000 panelOr dered By: Farzana Lopez on 10-30-2020 Anion gap [Moles/Vol] 6 mmol/L Low 10 - 2 0 mmol/L [facility] Calcium [Mass/Vol] 8.8 mg/dL 8.4 - 10. 2 mg/dL [facility] Chloride [Moles/Vol] 107 mmol/L 98 - 10 8 mmol/L [facility] Creatinine [Mass/Vol] 0.95 mg/dL 0.40 - 1.10 [facility] GFR/1.73 sq M.predicted CKD-EPI (S/P/Bld) [Vol rate/Area] 68 >=60 mL/min/1.7 3 m2 [facility] Glucose [Mass/Vol] 123 mg/dL High 65 - 99 mg/dL [facility] HCO3 [Moles/Vol] 28 mmol/L 21 - 32 mmol/L [facility] Potassium [Moles/Vol] 3.7 mmol/L 3.5 - 5.1 mmol/L [facility] Sodium [Moles/Vol] 137 mmol/L 135 - 145 mmol/L [facility] Urea nitrogen [Mass/Vol] 15 mg/dL 8 - 25 mg/dL [facility] Urea nitrogen/Creatinine [Mass ratio] 15.8 mg/mg [facility] The eGFR should be u sed for monitoring renal function only and not for medication dosing. [facility] CBC WITH AUTO DIFFERENTIALOr dered By: Farzana Lopez on 10-30-2020 Basophils (Bld) [#/Vol] 0.04 10*3/uL [facility] Basophils/100 WBC (Bld) 0.5 % [facility] Eosinophils (Bld) [#/Vol] 0.08 10*3/uL [facility] Eosinophils/100 WBC (Bld) 0.9 % [facility] Erythrocyte distribution width (RBC) [Entitic vol] 12.6 % 11.6 - 14.8 % [facility] Hematocrit (Bld) [Volume fraction] 38.5 % 36.0 - 46.0 % [facility] Hemoglobin (Bld) [Mass/Vol] 13.0 g/dL 12.0 - 16.0 g/dL [facility] Immature granulocytes (Bld) [#/Vol] 0.02 10*3/uL [facility] Immature granulocytes/100 WBC (Bld) 0.20 % [facility] Comment on above: The IG parameter is the percentage of metamyelocytes, myelocytes and promyelocytes. An immature granulocyte count (IG) of 1% or more suggests the possibility of infection, an IG count of 3% is very likely related to an infection. Lymphocytes (Bld) [#/Vol] 2.73 10*3/uL [facility] Lymphocytes/100 WBC (Bld) 31.3 % [facility] MCH (RBC) [Entitic mass] 31.9 pg 26.0 - 34.0 pg [facility] MCHC (RBC) [Mass/Vol] 33.8 g/dL 31.0 - 37.0 g/dL [facility] MCV (RBC) [Entitic vol] 94.6 fL 80.0 - 100.0 fL [facility] Monocytes (Bld) [#/Vol] 0.65 10*3/uL [facility] Monocytes/100 WBC (Bld) 7.5 % [facility] Neutrophils (Bld) [#/Vol] 5.19 10*3/uL [facility] Neutrophils/100 WBC (Bld) 59.6 % [facility] Nucleated RBC (Bld) [#/Vol] 0.00 10*3/uL [facility] Nucleated RBC/100 WBC (Bld) [Ratio] 0.0 % [facility] Platelet mean volume (Bld) [Entitic vol] 10.5 fL 9.4 - 12.4 fL [facility] Platelets (Bld) [#/Vol] 291 10*3/uL [facility] RBC (Bld) [#/Vol] 4.07 10*6/uL [facility] WBC (Bld) [#/Vol] 8.71 10*3/uL [facility] D-DIMER, QUANTITATIVEOrdered By: Jayme Calles on 10-30-2020 Fibrin D-dimer FEU (PPP) [Mass/Vol] 1.15 High 0.27 - 0.49 mcg/mL FEU [facility] Interpretation and review of laboratory results Abnormal [facility] A D-dimer concentrat ion of <0.5 micrograms per milliliter FEU is considered a low probability for pulmonary embolus (PE) and deep venous thrombosis (DVT). Results of this test should always be interpreted in conjunction with the patient's medical history,clinical presentation, and other findings. Clinical diagnosis should not be based on the results of the D-dimer alone. [facility] INR Coag (PPP) [Relative jose a e]Ordered By: Farzana Lopez on 10-30-2020 Interpretation and review of laboratory results Normal [facility] PT Coag (PPP) [Time] 12.5 s [facility] During the induction phase of oral anticoagulation, the INR may not reflect the anticoagulation status of the patient. Therapeutic ranges for INR's are: Most clinical situations: INR 2.0-3.0 Mechanical Prosthetic Valve: INR 2.5-3.5 Critical: INR >5.0 [facility] NT Pro BNPOrdered By: Farzana Lopez on 10-30-2020 Natriuretic peptide.B prohormone N-Terminal [Mass/Vol] 795 pg/mL High 0 - 300 pg/mL [facility] Natriuretic peptide.B prohor johnna N-Terminal [Mass/Vol]Ordered By: Farzana Lopez on 10-30-2020 Pride Study Cut-offs Rule In: < /= 50 Years >450 pg/mL 51 Years - 75 Years >900 pg/mL 76 Years - 99 Years >1800 pg/mL Rule Out: All patients <300 pg/mL [facility] No Panel InformationOrdered By: Farzana Lopez on 10-30-2020 Extra Tube Hold for add-ons. [facility] Comment on above: Auto resulted. [facility] Interpretation and review of laboratory results Abnormal [facility] PT/INROrdered By: Farzana lee on 10-30-2020 INR Coag (PPP) [Relative time] 1.0 {INR} [facility] SARS-CoV-2 (COVID-19) RdRp g dax CHRISTINE+probe Ql (Resp)Ordered By: Jayme Calles on 10-30-2020 Interpretation and review of laboratory results Normal [facility] SARS-CoV-2 (COVID-19) RNA CHRISTINE+probe Ql (Resp) Not detected Not Detected [facility] This test was perfor med under the FDA's Emergency Use Authorization (EUA). Testing was performed using the [facility] SARS-CoV-2 RT-PCR & Influenza A/B Nucleic Acid Test on the [facility]. This test has not been approved for use in asymptomatic patients and its performance in this patient population has not been evaluated. Negative results do not rule out the presence of SARS-CoV-2, influenza A, and/or influenza B. Fact sheets for the EUA can be found at the following links: For Healthcare Providers: https://www.fda.gov/media/2190/download For Patients: https://www.fda.gov/media/2191/download [facility] TROPONINOrdered By: Farzana crowley on 10-30-2020 Troponin I Interpretation Normal [facility] Troponin I.cardiac [Mass/Vol] ng/mL <=45 ng/L [facility] XR Chest 1 ViewOrdered By: Luis Lopez on 10-30-2020 1. Hazy bibasilar op acities, which may represent atelectasis. Infectious infiltrates not excluded. Clinical correlation advised. 2. 8 mm nodule in the right lower lung. Consider further evaluation with CT chest. Workstation ID: [id number] [facility] EXAMINATION: XR CHEST PA/AP 10/30/2020 9:06 pm HISTORY: ORDERING SYSTEM PROVIDED HISTORY: CHEST PAIN, TECHNOLOGIST PROVIDED HISTORY: Illness/Other Reason for exam: chest pain; headache Cancer History: Surgery, RadiationHistory: Encounter Type: Initial Additional signs and symptoms: ORDERING SYSTEM PROVIDED DIAGNOSIS CODES: COMPARISON: None FINDINGS: Normal cardiomediastinal silhouette. 8 mm nodule in the right lower lung. Hazy bibasilar opacities, which may represent atelectasis. No large pleural effusion or pneumothorax. No acute osseous abnormalities. [facility] Interface, Rad In Farshad ji Bunnyq - 10/30/2020 9:36 PM EDT EXAMINATION: XR CHEST PA/AP 10/30/2020 9:06 pm HISTORY: ORDERING SYSTEM PROVIDED HISTORY: CHEST PAIN, TECHNOLOGIST PROVIDED HISTORY: Illness/Other Reason for exam: chest pain; headache Cancer History: Surgery, RadiationHistory: Encounter Type: Initial Additional signs and symptoms: ORDERING SYSTEM PROVIDED DIAGNOSIS CODES: COMPARISON: None FINDINGS: Normal cardiomediastinal silhouette. 8 mm nodule in the right lower lung. Hazy bibasilar opacities, which may represent atelectasis. No large pleural effusion or pneumothorax. No acute osseous abnormalities. IMPRESSION: 1. Hazy bibasilar opacities, which may represent atelectasis. Infectious infiltrates not excluded. Clinical correlation advised. 2. 8 mm nodule in the right lower lung. Consider further evaluation with CT chest. Workstation ID: [id number] [facility] D-Dimer Quantitativeon 08-30 D-Dimer Quantitative 360.00 ng/mL(FEU) Normal <500 [facility] Comment on above: Result Comment: 500 ng/mL FEU is the D-dimer cutoff to exclude DVT (deep vein thrombosis)and PE (pulmonary embolism)in patients with a low pre-test probability. Supplemental Comment: In patients over 50 years with a low Pre-test probability for DVT and/or PE, an age-adjusted D-dimer cutoff can be calculated as [age X 10] ng/mL FEU. For example, a patient of 88 years would have an age-adjusted D-dimer of 880 ng/mL FEU. For patients with a suspected DVT, a D-dimer level below 500 ng/mL FEU has a negative predictive value of >=99.0%, a sensitivity of >=97.0% and a specificity of >=35.8%. Performed By: #### L CBCD #### [place] [address] Coronavirus 2019on 0 COVID 19 Result CASER SEE BELOW Normal CORNEG [facility] Comment on above: Result Comment: SARS CoV 2 (Agent of COVID 19) Not Detected by PCR. This test was developed and its performance characteristics determined by [facility] [place]. This test has been authorized by FDA under an Emergency Use Authorization (EUA). This test has been validated in accordance with the FDA's Guidance Document Policy for Diagnostics Testing in Laboratories Certified to Perform High Complexity Testing under CLIA prior to Emergency use Authorization for Coronavirus Disease 2019 during the Public Health Emergency issued on June 27, 2019. Performed By: #### C O19X #### [place] [address] COVID 19 Result OP SEE BELOW Normal [facility] Comment on above: Result Comment: Refe r to result for COVID 19 when completed. Performing Laboratory: [facility] [address] [place] [address] Performed By: #### C O19X #### [place] [address] COVID 19 Source CASER TRAVELING SALES REPRESENTATIVE Normal [facility] Comment on above: Performed By: #### C O19X #### [place] [address] COVID 19 Source OP OPS Normal [facility] Comment on above: Performed By: #### C O19X #### [place] [address] Basic Panelon 07-12-2019 Calcium [Mass/Vol] 9.0 mg/dL Normal 8.5-10.1 [facility] Comment on above: Performed By: #### L CBCD #### [place] [address] CO2 Blood 25 mEq/L Normal 21-32 [facility] Comment on above: Performed By: #### L CBCD #### [place] [address] Creatinine [Mass/Vol] 0.66 mg/dL Normal 0.51-0.95 [facility] Comment on above: Result Comment: Use of this assay is not recommended for patients undergoing treatment with phenindione, due to the potential for falsely depressed results. Performed By: #### L CBCD #### [place] [address] Glucose [Mass/Vol] 111 mg/dL High 70-99 [facility] Comment on above: Performed By: #### L CBCD #### [place] [address] Urea nitrogen [Mass/Vol] 6 mg/dL Low 7-18 [facility] Comment on above: Performed By: #### L CBCD #### [facility] [address] [place] [address] Chloride [Moles/Vol] 98 mmol/L Normal 98-109 [facility] Comment on above: Result Comment: Test ing performed on an Sánchez i-STAT. Performed By: #### L CBCD #### [place] [address] Potassium [Moles/Vol] 3.6 mmol/L Normal 3.5-4.9 [facility] Comment on above: Result Comment: Test ing performed on an Sánchez i-STAT. Performed By: #### L CBCD #### [place] [address] Sodium [Moles/Vol] 134 mmol/L Low 138-146 [facility] Comment on above: Result Comment: Test ing performed on an Sánchez i-STAT. Performed By: #### L CBCD #### [place] [address] Hemogram/Diffon 07-12-2019 Abs. Baso 0.02 thou/cmm Normal 0.00-0.08 [facility] Comment on above: Performed By: #### L CBCD #### [place] [address] Abs. Edmonson 1.09 thou/cmm High 0.20-1.00 [facility] Comment on above: Performed By: #### L CBCD #### [place] [address] Abs. Neut (ANC) 8.25 thou/cmm High 3.00-5.67 [facility] Comment on above: Performed By: #### L CBCD #### [place] [address] Basophils/100 WBC (Bld) 0.2 % Normal [facility] Comment on above: Performed By: #### L CBCD #### [place] [address] Eosinophils (Bld) [#/Vol] 0.05 thou/cmm Normal 0.00-0.41 [facility] Comment on above: Performed By: #### L CBCD #### [facility] [address] [place], [place] [address] Eosinophils/100 WBC (Bld) 0.4 % Normal [facility] Comment on above: Performed By: #### L CBCD #### [facility] [address] [place] [address] Erythrocyte distribution width (RBC) [Ratio] 12.3 % Normal 11.5-15.9 [facility] Comment on above: Performed By: #### L CBCD #### [place] [address] Hematocrit (Bld) [Volume fraction] 42.0 % Normal 37.0-47.0 [facility] Comment on above: Performed By: #### L CBCD #### [place] [address] Hemoglobin (Bld) [Mass/Vol] 14.2 g/dL Normal 12.0-16.0 [facility] Comment on above: Performed By: #### L CBCD #### [place] [address] Lymphocytes (Bld) [#/Vol] 2.89 thou/cmm Normal 1.50-3.65 [facility] Comment on above: Performed By: #### L CBCD #### [address] [address] Lymphocytes/100 WBC (Bld) 23.5 % Normal [facility] Comment on above: Performed By: #### L CBCD #### [address] [address] MCH (RBC) [Entitic mass] 32.1 pg High 27.0-31.0 [facility] Comment on above: Performed By: #### L CBCD #### [address] [address] MCHC (RBC) [Mass/Vol] 33.8 % Normal 32.0-36.0 [facility] Comment on above: Performed By: #### L CBCD #### [facility] [address] [place] [address] MCV (RBC) [Entitic vol] 95.0 fL Normal 81.0-99.0 [facility] Comment on above: Performed By: #### L CBCD #### [place] [address] Monocytes/100 WBC (Bld) 8.9 % Normal [facility] Comment on above: Performed By: #### L CBCD #### [facility] [address] [place] [address] Platelet mean volume (Bld) [Entitic vol] 10.4 fL Normal 7.1-10.5 [facility] Comment on above: Performed By: #### L CBCD #### [place] [address] Platelets (Bld) [#/Vol] 352 thou/cmm Normal 150-400 [facility] Comment on above: Performed By: #### L CBCD #### [place] [address] RBC (Bld) [#/Vol] 4.42 mil/cmm Normal 4.20-5.40 [facility] Comment on above: Performed By: #### L CBCD #### [place] [address] Seg Neutrophil 67.0 % Normal [facility] Comment on above: Performed By: #### L CBCD #### [place] [address] WBC (Bld) [#/Vol] 12.3 thou/cmm High 4.8-10.5 [facility] Comment on above: Performed By: #### L CBCD #### [facility] [address] [place] [address] MDRD eGFRon 07-12-2019 GFR/1.73 sq M predicted among non-blacks MDRD (S/P/Bld) [Vol rate/Area] mL/min/{1.73_m2} Normal >60mL/min/ 1.73m2 [facility] Comment on above: Result Comment: If t he patient is , multiply the result by 1.210. Performed By: #### L CBCD #### [facility] [address] [place], [place] [address] Rapid Influenza A/Bon 2019 Rapid Influenza A/B See below Normal Negative [facility] Comment on above: Result Comment: Nega tive for influenza A and B. Performed By: #### L CBCD #### [facility] [address] [place], [place] [address] Throat Rapid Grp A Strepon 0 07-12-2019 S. pyogenes Ag IA Ql (Unsp spec) see below Normal Negative [facility] Comment on above: Result Comment: Nega tive for group A Streptococcus antigen. Performed By: #### L CBCD #### [address] [address] Troponin Ion 07-12-2019 Troponin I.cardiac [Mass/Vol] ng/mL Normal <=0.07 [facility] Comment on above: Performed By: #### L CBCD #### [address] [address] XR CHEST 2V FRONTAL/LATon XR CHEST 2V FRONTAL/LAT * * *Final Report* * * DATE OF EXAM: Jul 11 2019 11:17PM LDX 5291 - XR CHEST 2V FRONTAL/LAT / PROCEDURE REASON: Acute respiratory illness * * * * Physician Interpretation * * * * EXAMINATION: CHEST RADIOGRAPH (2 VIEW FRONTAL & LATERAL) CLINICAL HISTORY: Acute respiratory illness, Shortness of breath MQ: XC2_6 EXAM DATE/TIME: 07/11/2019 11:17 PM COMPARISON: No relevant prior studies available. RESULT: Lines, tubes, and devices: None. Lungs and pleura: No consolidation. No lung mass. No pleural effusion. No pneumothorax. Tiny right middle lobe calcified granulomas. Cardiomediastinal silhouette: Normal cardiomediastinal silhouette. Bones and soft tissues: Mild thoracic spondylosis IMPRESSION: No acute radiographic abnormality. Family Member Caretaker: OSCAR Transcribe Date/Time: Jul 11 2019 11:58P Dictated by : WILBERT SHELTON MD This examination was interpreted and the report reviewed and electronically signed by: WILBERT SHELTON MD on Jul 11 2019 11:59PM EST Normal [facility] CT LUMBAR SPINE WO IVCONon 0 07-08-2019 CT LUMBAR SPINE WO IVCON * * *Final Report* * * DATE OF EXAM: Jul 08 2019 12:42PM [facility] 0508 - CT LUMBAR SPINE WO IVCON / PROCEDURE REASON: L/S-spine fx, traumatic * * * * Physician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 08:42-0400 Diastolic blood pressure 83 mm[Hg] Gabe Mcpherson Work Phone: [facility] Work Phone: 11-22-2021 08:42-0400 Heart rate 79 /min Gabe Mcpherson Work Phone: [facility] Work Phone: 11-22-2021 08:42-0400 SaO2% (BldA) [Mass fraction] 95 % Gabe Mcpherson Work Phone: [facility] Work Phone: 11-22-2021 08:42-0400 Systolic blood pressure 121 mm[Hg] Gabe Barraganl Work Phone: [facility] Work Phone: 10-31-2020 11:09-0400 Body temperature 97.3 [degF] Farzana Lopez MD Work Phone: [facility] 10-31-2020 11:09-0400 Diastolic blood pressure 63 mm[Hg] Farzana Lopez MD Work Phone: [facility] 10-31-2020 11:09-0400 Heart rate 59 /min Farzana Lopez MD Work Phone: [facility] 10-31-2020 11:09-0400 Respiratory rate 16 /min Farzana Lopez MD Work Phone: [facility] 10-31-2020 11:09-0400 SaO2% (BldA) [Mass fraction] 92 % Farzana Lopez MD Work Phone: [facility] 10-31-2020 11:09-0400 Systolic blood pressure 100 mm[Hg] Farzana Lopez MD Work Phone: [facility] 10-31-2020 00:36-0400 Body height 167.6 cm Farzana Lopez MD Work Phone: [facility] 10-31-2020 00:36-0400 Body mass index (BMI) [Ratio] 28.89 kg/m2 Farzana Lopez MD Work Phone: [facility] 10-31-2020 00:36-0400 Body weight 81.2 kg Farzana Lopez MD Work Phone: [facility] 09-14-2020 09:32-0400 Heart rate 102 /min Kang Vo MD Work Phone: [facility] 09-14-2020 09:32-0400 Respiratory rate 20 /min Kang Vo MD Work Phone: [facility] 09-14-2020 09:32-0400 SaO2% (BldA) [Mass fraction] 97 % Kang Vo MD Work Phone: [facility] 09-14-2020 09:03-0400 Body height 167.6 cm Kang Vo MD Work Phone: [facility] 09-14-2020 09:03-0400 Body mass index (BMI) [Ratio] 25.82 kg/m2 Kang Vo MD Work Phone: [facility] 09-14-2020 09:03-0400 Body temperature 98.2 [degF] Kang Vo MD Work Phone: [facility] 09-14-2020 09:03-0400 Body weight 72.58 kg Kang Vo MD Work Phone: [facility] 09-14-2020 09:03-0400 Diastolic blood pressure 100 mm[Hg] Kang Vo MD Work Phone: [facility] 09-14-2020 09:03-0400 Systolic blood pressure 155 mm[Hg] Kang Vo MD Work Phone: [facility] Encounters Encounter Date Encounter Type Care Provider Facility Start: 12-29-2024 End: 12-29-2024 ambulatory [facility] Start: 12-22-2024 End: 12-22-2024 [facility] Start: 12-18-2024 End: 12-18-2024 Patient encounter procedure Segun Garay MD Work Phone: [facility] Comment on above: Impingement syndrome of right shoulder; Postoperative examination; Post-op pain Start: 12-18-2024 End: 12-18-2024 Subsequent hospital visit by physician [facility] Comment on above: Arrived Start: 12-18-2024 End: 12-18-2024 [facility] Start: 11-26-2024 End: 11-26-2024 Subsequent hospital visit by physician [facility] Comment on above: Arrived Start: 11-26-2024 End: 11-26-2024 Postop follow up visit related to original px Segun Garay MD Work Phone: [facility] Comment on above: Impingement syndrome of right shoulder; Post-op pain Start: 11-26-2024 End: 11-26-2024 [facility] Start: 11-05-2024 End: 11-05-2024 Postop follow up visit related to original px Segun Garay MD Work Phone: [facility] Comment on above: Impingement syndrome of right shoulder (Primary Dx) Start: 11-05-2024 End: 11-05-2024 [facility] Start: 10-26-2024 End: 10-26-2024 Subsequent hospital visit by physician Segun Garay MD Work Phone: [facility] [place] Comment on above: Impingement syndrome of right shoulder Start: 10-19-2024 ambulatory [facility] Start: 10-02-2024 End: 10-02-2024 Office outpatient visit 15 minutes Catrachita Terry APRN-BALANCE RECESSER Work Phone: [facility] Comment on above: Hypertensive heart d isease with heart failure (Primary Dx); Chronic diastolic (congestive) heart failure; Chronic systolic congestive heart failure; Acute respiratory failure, unspecified whether with hypoxia or hypercapnia Start: 10-02-2024 End: 10-02-2024 ambulatory [facility] Start: 10-01-2024 End: 10-01-2024 ambulatory [facility] Start: 10-01-2024 End: 10-01-2024 Office outpatient visit 40 minutes Segun Garay MD Work Phone: [facility] Comment on above: Impingement syndrome of right shoulder (Primary Dx) Start: 10-01-2024 End: 10-01-2024 ambulatory [facility] Start: 09-29-2024 End: 09-29-2024 Subsequent hospital visit by physician [facility] Comment on above: Arrived Start: 09-29-2024 End: 09-29-2024 ambulatory [facility] Start: 09-18-2024 End: 09-18-2024 Emergency department patient visit WINDY SANTIZO [facility] Start: 09-16-2024 End: 09-16-2024 Emergency department patient visit CATRACHITA TERRY [facility] Start: 09-02-2024 End: 09-02-2024 Emergency department patient visit CATRACHITA TERRY [facility] Start: 08-19-2024 ambulatory No Primary Car e Physician [place] Start: 08-14-2024 End: 08-14-2024 Office outpatient visit 25 minutes Segun Garay MD Work Phone: [facility] Comment on above: Impingement syndrome of right shoulder; Acute pain of right shoulder Start: 08-14-2024 End: 08-14-2024 Subsequent hospital visit by physician August Cohn [facility] Comment on above: Impingement syndrome of right shoulder Start: 08-14-2024 End: 08-14-2024 ambulatory [facility] Start: 08-14-2024 End: 08-14-2024 Subsequent hospital visit by physician [facility] Comment on above: Arrived Start: 08-14-2024 End: 08-14-2024 ambulatory [facility] Start: 07-31-2024 End: [facility] Start: 07-31-[facility]24 End: 07-31-2024 Subsequent hospital visit by physician August Glass [facility] Comment on above: Acute pain of right shoulder Start: 07-15-2024 End: 07-15-2024 Subsequent hospital visit by physician [facility] Comment on above: Arrived Start: 07-15-2024 End: 07-15-2024 ambulatory [facility] Start: 07-09-2024 End: 07-09-2024 ambulatory No Primary Care Physician Facility:[facility] Start: 07-08-2024 End: 07-08-2024 Office outpatient visit 15 minutes 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 Work Phone: [facility] Comment on above: Acute pain of right shoulder (Primary Dx) Start: 07-08-2024 End: 07-08-2024 ambulatory CATRACHITA Julito [facility]ulatory Start: 05-12-2024 End: 05-12-2024 Subsequent hospital visit by physician [facility] Comment on above: Arrived Start: 05-12-2024 End: 05-12-2024 ambulatory SEGUN GARAY [facility] Start: 04-21-2024 Emergency department patient visit WINDY FLETCHERKAMERON [facility] Start: 03-30-2024 End: 03-30-2024 Office outpatient new 45 minutes Pavithra Sampson [place] COMMISSIONED FIRE OFFICER-BALANCE RECESSER Work Phone: [facility] Comment on above: Impingement syndrome of right shoulder (Primary Dx); Chronic right shoulder pain Start: 03-30-2024 End: 03-30-2024 ambulatory PAVITHRA M [facility] Start: 03-18-2024 End: 03-18-2024 Office outpatient visit 25 minutes 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 Work Phone: [facility] Comment on above: COPD mixed type (Mul ti) (Primary Dx); Other migraine without status migrainosus, not intractable; Anxiety and depression; Psychophysiological insomnia; Gastroesophageal reflux disease, unspecified whether esophagitis present; Primary hypertension; Health maintenance examination; Encounter for screening mammogram for malignant neoplasm of breast; Chronic right shoulder pain Start: 03-18-2024 End: 03-18-2024 Patient encounter status Catrachitalynette Terry COMMISSIONED FIRE OFFICER-BALANCE RECESSER Work Phone: [facility] Work Phone: Start: 03-18-2024 End: 03-18-2024 ambulatory [facility] Start: 03-18-2024 End: 03-18-2024 Encounter for general adult medical examination without abnormal findings [facility] Start: 01-07-2024 End: 01-07-2024 Emergency department patient visit PHYSICIAN NO [facility] Start: 12-18-2023 Emergency department patient visit GABE MCPHERSON [facility] Start: 12-06-2023 ambulatory No Primary Car e Physician [place] [place] Start: 10-29-2023 ambulatory No Primary Car e Physician Facility[place] [place] Start: 01-30-2023 End: 01-30-2023 Office outpatient visit 25 minutes Gabe MANZANOC Work Phone: [facility] Comment on above: Primary hypertension (Primary Dx); Chronic congestive heart failure, unspecified heart failure type (CMS/HCC); Gastroesophageal reflux disease, unspecified whether esophagitis present; Chronic bronchitis, unspecified chronic bronchitis type (CMS/HCC); Other migraine without status migrainosus, not intractable; Anxiety and depression; Psychophysiological insomnia Start: 08-20-2022 End: 08-21-[address] Kev Coleman Facility:[id number] Start: 06-28-2022 ambulatory Mr. Gabe Mcpherson Facility:[id number] Start: 01-24-2022 Office outpatient vi sit 25 minutes Gabe Mcpherson Work Phone: [facility] Work Phone: Start: 01-24-2022 ambulatory Mr. Gabe Mcpherson Facility:[id number] Start: 01-22-2022 AUDIT Gabe Adrián Aguilaryue Work Phone: [facility] Work Phone: Start: 01-11-2022 AUDIT Gabe Adrián Mcpherson Work Phone: [facility] Work Phone: Start: 12-28-2021 Office outpatient vi sit 25 minutes Gabe Barraganl Work Phone: [facility] [place] [id number] Work Phone: Start: 12-28-2021 ambulatory Mr. Gabe Mcpherson Facility:[id number] Start: 12-25-2021 Office outpatient vi sit 25 minutes Gabe Adrián Mcpherson Work Phone: [facility] Work Phone: Start: 12-25-2021 End: 12-29-2021 ambulatory [facility] Start: 11-22-2021 ambulatory Mr. Gabe Mcpherson Facility:[id number] Start: 11-22-2021 Office outpatient vi sit 25 minutes Gabe Adrián Mcpherson Work Phone: [facility] Work Phone: Start: 07-25-2021 ambulatory Mr. Gabe Mcpherson Facility:[id number] Start: 07-20-2021 ambulatory Mr. Gabe Mcpherson Facility:[id number] Start: 10-30-2020 End: 10-31-2020 Emergency department patient visit Farzana Lopez MD Work Phone: [facility] Start: 09-14-2020 End: 09-14-2020 Emergency department patient visit Kang Vo MD Work Phone: [facility] Emergency Department Procedures Date Procedure Procedure Detail Performing Clinician Start: 12-18-2024 US Abdomen Segun guidry MD Work Phone: Start: 11-26-2024 US Abdomen Segun guidry MD Work Phone: Start: 10-26-2024 PULSE OXIMETRY, SPOT Ro cynthia Garay MD Work Phone: Start: 09-29-2024 US Abdomen Segun guidry MD Work Phone: Start: 08-14-2024 US Abdomen Segun guidry MD Work Phone: Start: 07-31-2024 Mri any jt upper ext remity w/o contrast matrl 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 Work Phone: Start: 07-15-2024 US Abdomen Segun guidry MD Work Phone: Start: 05-12-2024 US Abdomen Segun guidry MD Work Phone: Start: 04-03-2024 Arthrocentesis aspir &/inj major jt/bursa w/o us Pavithra Maria COMMISSIONED FIRE OFFICER-BALANCE RECESSER Work Phone: Start: 08-23-2021 Colonoscopy Gabe johnson PA-C Work Phone: Start: 10-31-2020 Electrocardiogram Provi hakeem Not In System Start: 10-31-2020 Assay of troponin quantitative Janette Erwin BALANCE RECESSER Work Phone: Start: 10-31-2020 Basic metabolic pane l calcium total Janette Jenny Erwin BALANCE RECESSER Work Phone: Start: 10-30-2020 Ct angiography chest w/contrast/noncontrast Wilbert Decker MD Work Phone: Start: 10-30-2020 SARS-CoV-2 (COVID-19 ) RdRp gene [Presence] in Respiratory specimen by CHRISTINE with probe detection Jayme Calles MD Work Phone: Start: 10-30-2020 Radiologic exam ches t single view Farzana Lopez MD Work Phone: Start: 10-30-2020 Ecg routine ecg w/le ast 12 lds w/i&r Farzana Lopez MD Work Phone: Start: 10-30-2020 Basic metabolic pane l calcium total Farzana Lopez MD Work Phone: Start: 10-30-2020 LAW TOP Farzana Lopez MD Work Phone: Start: 10-30-2020 LIGHT GREEN TOP Farzana Lopez MD Work Phone: Start: 10-30-2020 RAINBOW DRAW Farzana Lopez MD Work Phone: Start: 07-12-2019 Throat culture Comment on above: Performed By: #### L CBCD #### [place] [address] Cholecystectomy Gabe Patrick Work Phone: Extraction of wisdom tooth S xiomara Mcpherson Work Phone: Hysterectomy Gabe Mcpherson Work Phone: Plan of Treatment Date Care Activity Detail Author Start: 08-24-2031 Screening for malignant neoplasm of colon [facility] Start: 10-01-2025 Creatinine measurement Creatinine Level [facility] Start: 10-01-2025 Diabetes mellitus screening Diabetes Screening [facility] Start: 10-01-2025 Potassium measurement Potassium Level [facility] Start: 04-07-2025 End: 04-07-2025 Patient encounter procedure 04/07/2025 12:50 PM EST Office Visit [facility] [address] [place] [address] Catrachita Terry, COMMISSIONED FIRE OFFICER-BALANCE RECESSER [address] [facility], [address] [place] [phone] [facility] Start: 01-08-2025 End: 01-08-2025 Patient encounter procedure 01/08/2025 10:15 AM EDT Office Visit [facility] [address] [place] [phone] Segun Garay MD [address] [place] [phone] [facility] Start: 12-28-2024 Influenza vaccination [facility] Start: 12-25-2024 Diabetes mellitus screening Diabetes Screening [facility] Start: 12-24-2024 End: 12-24-2024 Patient encounter procedure 12/24/2024 11:30 AM EDT Office Visit [facility] [address] [place] [address] Segun Garay MD [address] [place] [phone] [facility] Start: 12-22-2024 End: 12-22-2024 ambulatory 12/22/2024 10:45 AM EDT Evaluation Faheem Jimenez [address] [place] [address] Paulie Meyer, PT [address] [place] [place] [address] Faheem Jimenez Start: 11-26-2024 End: 11-26-2024 Patient encounter procedure 11/26/2024 2:30 PM EDT Office Visit [facility] [address] [place] [phone] Segun aGray MD [address] [place] [address] [facility] Start: 11-05-2024 End: 11-05-2024 Patient encounter procedure 11/05/2024 3:15 PM EDT Office Visit [facility] [address] [place] [address] Segun Garay MD [address] [place] [address] [facility] Start: 10-26-2024 End: 10-26-2024 Admission to same day surgery center 10/26/2024 7:30 AM EDT - 10/26/2024 9:50 AM EDT Surgery [facility] [place] [address] [place] [phone] Segun Garay MD [address] [place] [address] Arthroscopic Repair of the Rotator Cuff Shoulder [81875 (CPT )] [facility] [place] Comment on above: Arthroscopic Repair of the Rotator Cuff Shoulder [06949 (CPT )] Start: 10-26-2024 End: 10-26-2024 Arthroscopy shoulder rotator cuff repair ARTHROSCOPY, SHOULDER, WITH ROTATOR CUFF REPAIR Impingement syndrome of right shoulder 10/26/2024 7:30 AM EDT [facility] [place] Start: 10-26-2024 Subsequent hospital visit by physician 10/26/2024 6:00 AM EDT Hospital Encounter [facility] [place] [address] [place] [phone] Segun Garay MD [address] [place] [address] [facility] [place] Start: 10-02-2024 End: 10-02-2024 Patient encounter procedure 10/02/2024 2:10 PM EDT Office Visit [facility] [address] [place] [phone] Catrachita Terry, COMMISSIONED FIRE OFFICER-BALANCE RECESSER [address] [facility], [address] [place] [address] [facility] Start: 10-01-2024 End: 10-01-2024 Patient encounter procedure 10/01/2024 11:45 AM EDT Office Visit [facility] [address] [place] [address] Segun Garay MD [address] [place] [address] [facility] Start: 09-29-2024 End: 09-29-2024 Patient encounter procedure 09/29/2024 8:30 AM EDT Office Visit [facility] [address] [place] [address] Segun Garay MD [address] [place] [address] [facility] Start: 09-22-2024 End: 09-22-2024 Patient encounter procedure [facility] Start: 09-10-2024 End: 09-10-2024 Patient encounter procedure 09/10/2024 9:00 AM EDT Office Visit [facility] [address] [place] [address] Segun Garay MD [address] [place] [address] [facility] Start: 08-10-2024 End: 08-10-2025 XR Shoulder - right 2 Views XR shoulder right 2+ views Imaging Routine Impingement syndrome of right shoulder Expected: 08/10/2024, Expires: 08/10/2025 [facility] Service Area Work Phone: Comment on above: Expected: 08/10/2024, Expires: Start: 07-20-2024 End: 07-20-2024 Patient encounter procedure 07/20/2024 8:15 AM EDT Appointment [address] [phone] [facility] Start: 07-15-2024 End: 07-15-2024 Patient encounter procedure 07/15/2024 3:45 PM EDT Office Visit [facility] [address] [place] [address] Segun Garay MD [address] [place] [phone] [facility] Start: 07-08-2024 End: 07-08-2025 MR Shoulder - right WO contrast MR shoulder right wo IV contrast Imaging Routine Acute pain of right shoulder Expected: 07/08/2024, Expires: 07/08/2025 [facility] Service Area Work Phone: Comment on above: Expected: 07/08/2024, Expires: Start: 05-12-2024 End: 05-12-2024 Patient encounter procedure 05/12/2024 10:30 AM EST Office Visit [facility] [address] [place] [phone] Segun Garay MD [address] [place] [address] [facility] Start: 03-30-2024 End: 03-30-2024 Patient encounter procedure 03/30/2024 11:00 AM EST Office Visit [facility] [facility] [address] [place] [address] Pavithra Maria, COMMISSIONED FIRE OFFICER-BALANCE RECESSER [address] [facility], [address] [place] [address] [facility] Start: 03-27-2024 End: 03-27-2024 Patient encounter procedure 03/27/2024 9:45 AM EST Appointment [facility] [address] [place] [address] [facility] Start: 03-18-2024 End: 03-18-2025 CBC W Auto Differential panel - Blood CBC and Auto Differential Lab Routine Gastroesophageal reflux disease, unspecified whether esophagitis present Expected: 03/18/2024 (Approximate), Expires: 03/18/2025 [facility] Service Area Work Phone: Comment on above: Expected: 03/18/2024 (Approximate), Expi res: 03/18/2025 Start: 03-18-2024 End: 03-18-2025 Comprehensive metabolic 2000 panel - Serum or Plasma Comprehensive Metabolic Panel Lab Routine Health maintenance examination Expected: 03/18/2024 (Approximate), Expires: 03/18/2025 [facility] Work Phone: Comment on above: Expected: 03/18/2024 (Approximate), Expi res: 03/18/2025 Start: 03-18-2024 End: 05-18-2025 DBT Breast - bilateral BI mammo bilateral screening tomosynthesis Imaging Routine Encounter for screening mammogram for malignant neoplasm of breast Expected: 03/18/2024, Expires: 05/18/2025 [facility] Work Phone: Comment on above: Expected: 03/18/2024, Expires: Start: 03-18-2024 End: 03-18-2025 Lipid 1996 panel - Serum or Plasma Lipid Panel Lab Routine Primary hypertension Expected: 03/18/2024 (Approximate), Expires: 03/18/2025 [facility] Work Phone: Comment on above: Expected: 03/18/2024 (Approximate), Expi res: 03/18/2025 Start: 03-18-2024 End: 03-18-2025 TSH with reflex to Free T4 if abnormal TSH with reflex to Free T4 if abnormal Lab Routine Anxiety and depression Expected: 03/18/2024 (Approximate), Expires: 03/18/2025 [facility] Work Phone: Comment on above: Expected: 03/18/2024 (Approximate), Expi res: 03/18/2025 Start: 02-03-2024 End: 02-03-2024 Patient encounter procedure 02/03/2024 9:50 AM EDT Office Visit [facility] [address] [place] [address] Gabe Mcphreson PA-C [address] [facility] [place] [address] [facility] [place] Start: 12-29-2023 COVID-19 Vaccine ( season) COVID-19 Vaccine ( season) [facility] Start: 12-29-2023 COVID-19 Vaccine ( season) COVID-19 Vaccine ( season) [facility] Start: 12-29-2023 Influenza vaccination Influenza Vaccine (#1) [facility] Start: 08-22-2023 Creatinine measurement Creatinine Level [facility] Start: 08-22-2023 Potassium measurement Potassium Level [facility] Start: 08-21-2023 Echocardiography Echocardiogram [facility] Start: 01-30-2023 End: 01-31-2024 CBC panel - Blood by Automated count CBC Lab Routine Primary hypertension Chronic congestive heart failure, unspecified heart failure type (CMS/HCC) Gastroesophageal reflux disease, unspecified whether esophagitis present Chronic bronchitis, unspecified chronic bronchitis type (CMS/HCC) Other migraine without status migrainosus, not intractable Anxiety and depression Psychophysiological insomnia Expected: 01/30/2023 (Approximate), Expires: 01/31/2024 [facility] Service Area Work Phone: Comment on above: Expected: 01/30/2023 (Approximate), Expi res: 01/31/2024 Start: 01-30-2023 End: 01-31-2024 Comprehensive metabolic 2000 panel - Serum or Plasma Comprehensive Metabolic Panel Lab Routine Primary hypertension Chronic congestive heart failure, unspecified heart failure type (CMS/HCC) Gastroesophageal reflux disease, unspecified whether esophagitis present Chronic bronchitis, unspecified chronic bronchitis type (CMS/HCC) Other migraine without status migrainosus, not intractable Anxiety and depression Psychophysiological insomnia Expected: 01/30/2023 (Approximate), Expires: 01/31/2024 [facility] Work Phone: Comment on above: Expected: 01/30/2023 (Approximate), Expi res: 01/31/2024 Start: 01-30-2023 End: 01-31-2024 Hemoglobin A1c/Hemoglobin.total in Blood Hemoglobin A1C Lab Routine Primary hypertension Chronic congestive heart failure, unspecified heart failure type (CMS/HCC) Gastroesophageal reflux disease, unspecified whether esophagitis present Chronic bronchitis, unspecified chronic bronchitis type (CMS/HCC) Other migraine without status migrainosus, not intractable Anxiety and depression Psychophysiological insomnia Expected: 01/30/2023 (Approximate), Expires: 01/31/2024 [facility] Work Phone: Comment on above: Expected: 01/30/2023 (Approximate), Expi res: 01/31/2024 Start: 01-30-2023 End: 01-31-2024 Lipid 1996 panel - Serum or Plasma Lipid Panel Lab Routine Primary hypertension Chronic congestive heart failure, unspecified heart failure type (CMS/HCC) Gastroesophageal reflux disease, unspecified whether esophagitis present Chronic bronchitis, unspecified chronic bronchitis type (CMS/HCC) Other migraine without status migrainosus, not intractable Anxiety and depression Psychophysiological insomnia Expected: 01/30/2023 (Approximate), Expires: 01/31/2024 [facility] Work Phone: Comment on above: Expected: 01/30/2023 (Approximate), Expi res: 01/31/2024 Start: 01-30-2023 End: 01-31-2024 TSH with reflex to Free T4 if abnormal TSH with reflex to Free T4 if abnormal Lab Routine Primary hypertension Chronic congestive heart failure, unspecified heart failure type (CMS/HCC) Gastroesophageal reflux disease, unspecified whether esophagitis present Chronic bronchitis, unspecified chronic bronchitis type (CMS/HCC) Other migraine without status migrainosus, not intractable Anxiety and depression Psychophysiological insomnia Expected: 01/30/2023 (Approximate), Expires: 01/31/2024 [facility] Work Phone: Comment on above: Expected: 01/30/2023 (Approximate), Expi res: 01/31/2024 Start: 12-28-2022 Influenza vaccination Influenza Vaccine (#1) [facility] Start: 12-25-2022 Diabetes mellitus screening Diabetes Screening [facility] Start: 06-26-2022 FUV, Provider: Gabe Mcpherson, Status: Pen, Time: 9:10 AM FUV, Provider: aGbe Mcpherson, Status: Pen, Time: 9:10 AM [facility] [place] Work Phone: Start: 12-28-2021 NPV, Provider: Jarrett Mueller, Status: Pen, Time: 9:45 AM NPV, Provider: Jarrett Mueller, Status: Pen, Time: 9:45 AM [facility] Work Phone: Start: 12-20-2021 FUV, Provider: Gabe Mcpherson, Status: Pen, Time: 8:30 AM FUV, Provider: Gabe Mcpherson, Status: Pen, Time: 8:30 AM [facility] Work Phone: Start: 08-10-2021 COVID-19 Vaccine (3 - Pfizer series) COVID-19 Vaccine (3 - Pfizer series) [facility] Start: 12-28-2020 Influenza vaccination Sequential Influenza Vaccine (#1) [facility] Start: 2016 Administration of herpes zoster vaccine Zoster Vaccines (1 of 2) [facility] Start: 2016 Screening for malignant neoplasm of colon [facility] Start: 2016 Zoster Vaccines (1 of 2) Zoster Vaccines (1 of 2) [facility] Start: 2006 Screening for malignant neoplasm of breast Mammogram [facility] Start: 2006 Screening mammography Mammogram [facility] Start: 1988 DTaP/Tdap/Td Vaccines (1 - Tdap) DTaP/Tdap/Td Vaccines (1 - Tdap) [facility] Start: 09-21-1987 Screening for malignant neoplasm of cervix [facility] Start: 1985 Hepatitis B Vaccines (1 of 3 - 19+ 3-dose series) Hepatitis B Vaccines (1 of 3 - 19+ 3-dose series) [facility] Start: 1984 Hepatitis C screening Hepatitis C Screening [facility] Start: 1981 HIV screening HIV Screening [facility] Start: 1978 COVID-19 Vaccine (1) COVID-19 Vaccine (1) [facility] Start: 1978 Depression screening using PHQ-9 (Patient Health Questionnaire 9) score Depression Screening (PHQ9) [facility] Start: 1972 Pneumococcal Vaccine: Ped or At-Risk (1 of 2 - PPSV23) Pneumococcal Vaccine: Ped or At-Risk (1 of 2 - PPSV23) [facility] Start: 1969 History and physical examination, annual for health maintenance Wellness Visit [facility] Start: 09-21-1967 MMR Vaccines (1 of 1 - Standard series) MMR Vaccines (1 of 1 - Standard series) [facility] Start: 1966 Hepatitis B Vaccines (1 of 3 - 3-dose series) Hepatitis B Vaccines (1 of 3 - 3-dose series) [facility] Start: 1966 HIV screening HIV Screening [facility] Start: 1966 Lipid panel Lipid Panel [facility] Start: 1966 Screening for malignant neoplasm of colon [facility] Start: 1966 Tetanus vaccination Tetanus: Every 10yrs [facility] Start: 1966 Yearly Adult Physical Yearly Adult Physical [facility] End: 10-26-2024 Blood type and Indirect antibody screen panel - Blood Type And Screen Lab Timed Impingement syndrome of right shoulder As needed (Lab) until discontinued starting 10/26/2024 [facility] Service Area Work Phone: Comment on above: As needed (Lab) until discontinued start ing 10/26/2024 End: 10-26-2024 Continuous Pulse oximetry, In Phase 1 Continuous Pulse oximetry, In Phase 1 Respiratory Care Routine Continuous until discontinued starting 10/26/2024 [facility] Service Area Work Phone: Comment on above: Continuous until discontinued starting 0 10/26/2024 End: 08-14-2024 XR Shoulder - right 2 Views [facility] Work Phone: Comment on above: Once for 1 Occurrences starting 08/15/19 until 08/14/2024 Immunizations Immunization Date Immunization Notes Care Provider Fauzia larose 08-21-2022 Pneumococcal conjuga te vaccine, 20-valent (PREVNAR 20) 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 Work Phone: [facility] 06-15-2021 Comirnaty 30 MCG/0.3 ML Intramuscular Suspension [facility] Work Phone: [facility] Work Phone: 12-27-2020 Pfizer-BioNTech COVID-19 Vacc 30 MCG/0.3ML Intramuscular Suspension [facility] Work Phone: [facility] Work Phone: 11-26-2020 Pfizer-BioNTech COVID-19 Vacc 30 MCG/0.3ML Intramuscular Suspension [facility] Work Phone: [facility] Work Phone: 10-31-2020 pneumococcal vaccine , unspecified formulation Farzana Lopez MD Work Phone: [facility] Work Phone: Payers Date Payer Category Payer Self-pay 2021 Medicaid (Managed Care) 1.2. [id number] 2021 Unknown 2018 Medicaid [employer] [id number] 2018-Present [id number] 2018 Medicaid [id number] 2018 Unknown [id number] 1966 Unknown [id number] 2.16840.1.099071.3.579.2. 903 1966 Unknown [id number] 2.16840.1.137362.3.579.2. 356 1966 Unknown [id number] 2.840.1.893514.3.579.2. 356 1966 Unknown [id number] 2.840.1.328501.3.579.2. 356 1966 Unknown [id number] 2.840.1.004208.3579.2. 1966 Unknown [id number] 2.840.1.792242.3.579.2. 356 1966 Unknown [id number] 2..1.951500.3.579.2. 1966 Unknown [id number] 2.840.1.322354.3.579.2. 356 1966 Unknown [id number] 2.840.1.854563.3.579.2. 1069 1966 Unknown [id number] 2.840.1.007603.3.579.2. 902 1966 Unknown [id number] 2.0.1.853859.3.579.2. 1244 1966 Unknown [id number] 2.840.1.588622.3.579.2. 1244 1966 Unknown [id number] 2.840.1.329982.3.579.2. 1244 1966 Unknown [id number] 2.840.1.854176.3.579.2. 1244 1966 Unknown [id number] 2.840.1.317404.3.579.2. 1244 1966 Unknown [id number] 2.16.840.1.865840.3.579.2. 1244 1966 Unknown [id number] 2.16.840.1.855292.3.579.2. 1242 1966 Unknown [id number] 2.16.840.1.896415.3.579.2. 1242 1966 Unknown [id number] 2.16840.1.029971.3.579.2. 1242 1966 Unknown [id number] 2.16840.1.451582.3.579.2. 1242 1966 Unknown [id number] 2.840.1.145487.3.579.2. 1242 1966 Unknown [id number] 2.840.1.552788.3.579.2. 1242 1966 Unknown [id number] 2.840.1.305426.3.579.2. 1243 1966 Unknown [id number] 2.840.1.513200.3.579.2. 1243 1966 Unknown [id number] 2.840.1.297832.3.579.2. 1243 1966 Unknown [id number] 2.840.1.647152.3.579.2. 1243 1966 Unknown [id number] 2.840.1.247582.3.579.2. 1243 1966 Unknown [id number] 2.840.1.100706.3.579.2. 1243 1966 Unknown [id number] 2.840.1.504162.3.579.2. 1243 1966 Unknown [id number] 2.840.1.080194.3.579.2. 1243 1966 Unknown [id number] 2.16840.1.869122.3.579.2. 124 Unknown [id number] 2.16.840.1.418247.3.579.2. 462 Unknown [id number] 2.16.840.1.786706.3.579.2. 462 Unknown [id number] 2.16.840.1.326287.3.579.2. 462 Unknown [id number] 2.16.840.1.901233.3.579.2. 462 Unknown [id number] 2.16.840.1.107928.3.579.2. 462 Social History Date Type Detail Facility Start: 09-14-2020 End: 10-21-2024 Tobacco smoking status RIIS Current every day smoker [facility] History of tobacco use Cigarette Smoker [facility] Start: 09-14-2020 End: 10-02-2024 Cigarettes smoked current (pack per day) - Reported [facility] Start: 09-14-2020 End: 10-21-2024 Tobacco use and exposure Never used [facility] Start: 09-14-2020 End: 12-18-2024 Alcohol intake Lifetime non-drinker (finding) [facility] Start: 09-14-2020 History SDOH Alcohol Frequency 1 [facility] Start: 1965 Sex Assigned At Not on file [facility] Start: 01-20-2023 End: 10-01-2024 Exposure to SARS-CoV-2 (event) Not sure [facility] Start: 01-30-2023 End: 10-02-2024 Tobacco use panel [facility] Work Phone: Start: 10-26-2024 Sexual orientation Heterosexual (finding) [facility] Work Phone: Start: 03-24-2022 Sex Female [facility] Medical Equipment Procedure Code Equipment Code Equipment Origin al Text Equipment Identifier Dates Vince Niño W/[employer]ocom[employer]ada Johnston , 4.75 X 19.1mm - [id number] Start: 10-26-2024 Goals Date Patient Goal Desired Activity /State Personal health goal Functional Status Date Assessment Result Facility 10-26-2024 [place] - 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 [C-SSRS] [facility] Work Phone: 10-02-2024 Patient Health Quest ionnaire 2 item (PHQ-2) [Reported] [facility] Work Phone: Clinical Notes 09-14-2020 to 12-18-2024 Assessment & Plan Note - Segun Garay MD - 12/18/2024 9:30 AM EDTAssessment & Plan Note - Segun Garay MD - 12/18/2024 9:30 AM EDTRsandor Garay MD - 12/18/2024 9:00 AM EDT Note Date & Type Note Facility 12-18-2024 Evaluation + Plan note Associated Problem(s): Impingement syndrome of right shoulder Assessment: 7 weeks and 4 days status post 10/26/2024 rotator cuff reconstruction right shoulder she comes in early because she was having some pain and some popping in her shoulder. She is scheduled to start physical therapy in a few days. She related that she had come out of the abduction brace and sling and was outside when she uses this hand to protect herself from schwarz wasp. She is concerned she may have compromised the surgical result. This happened shortly after surgery. Plan: Continue with her planned physical therapy. Tramadol 50 mg p.o. every 6 hours as needed pain she was given 21 tablets. We discussed modalities and jxdk-vgc-ltdbxdf pain medication such as Tylenol and/or Advil or Motrin which she does use with some marginal benefit. She was encouraged to use these meds first. Follow-up in 3 weeks for reevaluation. Continue the sling and abduction pillow until she has done some early therapy. [facility] Work Phone: 12-18-2024 Miscellaneous Notes Associated Problem(s): Impingement syndrome of right shoulder Assessment: 7 weeks and 4 days status post 10/26/2024 rotator cuff reconstruction right shoulder she comes in early because she was having some pain and some popping in her shoulder. She is scheduled to start physical therapy in a few days. She related that she had come out of the abduction brace and sling and was outside when she uses this hand to protect herself from schwarz wasp. She is concerned she may have compromised the surgical result. This happened shortly after surgery. Plan: Continue with her planned physical therapy. Tramadol 50 mg p.o. every 6 hours as needed pain she was given 21 tablets. We discussed modalities and rbxg-ilf-mecvlqu pain medication such as Tylenol and/or Advil or Motrin which she does use with some marginal benefit. She was encouraged to use these meds first. Follow-up in 3 weeks for reevaluation. Continue the sling and abduction pillow until she has done some early therapy. documented in this encounter [facility] Work Phone: 12-18-2024 History of Present illness Narrative Assessment/Plan Encounter Diagnoses: Impingement syndrome of right shoulder Postoperative examination Post-op pain Impingement syndrome of right shoulder Assessment: 7 weeks and 4 days status post 10/26/2024 rotator cuff reconstruction right shoulder she comes in early because she was having some pain and some popping in her shoulder. She is scheduled to start physical therapy in a few days. She related that she had come out of the abduction brace and sling and was outside when she uses this hand to protect herself from schwarz wasp. She is concerned she may have compromised the surgical result. This happened shortly after surgery. Plan: Continue with her planned physical therapy. Tramadol 50 mg p.o. every 6 hours as needed pain she was given 21 tablets. We discussed modalities and gexi-psk-cvezfda pain medication such as Tylenol and/or Advil or Motrin which she does use with some marginal benefit. She was encouraged to use these meds first. Follow-up in 3 weeks for reevaluation. Continue the sling and abduction pillow until she has done some early therapy. My clinical suspicion that she disrupted the repair is minimal Subjective Patient ID: Tabitha Fish is a 59 y.o. female. Chief Complaint: Post-op of the Right Shoulder (RIGHT ROTATOR CUFF REPAIR DONE ON 10/26/24) Last Surgery: Arthroscopic Repair of the Rotator Cuff Shoulder - Right Last Surgery Date: 10/26/2024 HPI 59-year-old who is 7 weeks and 4 days status post 10/26/2024 arthroscopic rotator cuff repair on the right. She comes in today because she still having pain requiring narcotics and she is out of pain medication. She is starting therapy in a few days. She relates a story where shortly after her surgery she had taken her sling and swath off and was outside and she use this arm to swat away a schwarz wasp. She was concerned she may have compromised the surgery. OBJECTIVE: ORTHO EXAM Right shoulder exam The portals are sealed and healed. There is no evidence of calor or erythema or drainage. Proximal humerus is tender to palpation but as expected. Gentle passive range of motion of the shoulder allowed forward elevation to 150. She had external rotation to 30 and internal rotation to the ipsilateral buttock. She got about 25 degrees of rotation internally. Neurovascularly intact distally. Nontender to palpation over the biceps tendon more distally in the biceps muscle. Elbow range of motion was near full. Hand and wrist was near full. She did not have any significant distal swelling. IMAGE RESULTS: Point of Care Ultrasound These images are not reportable by radiology and will not be interpreted by Radiologists. ULTRASOUND DIAGNOSTIC ULTRASOUND FINAL REPORT: Right SHOULDER Provider: Segun Garay MD Date of Exam: Today Procedure: Ultrasound, extremity, nonvascular, real-time, COMPLETE, anatomic specific. Site: SHOULDER Indication: SHOULDER PAIN Technique: B-Mode Ultrasound Examination performed using 8-13 MHz linear transducer with [employer] STUDY TYPE: 1. ULTRASOUND EXTREMITY INCLUDING BUT NOT LIMITED TO SHOULDER MUSCLE, TENDONS, LIGAMENTS, FATTY TISSUES, SUBCUTANEOUS TISSUES AND OTHER SOFT TISSUE STRUCTURES SUCH ABSCESSES OR FREE FLUID ACCUMULATION WITHIN THE PRIMARY JOINT WELL ADJACENT JOINTS. 2. REAL TIME WITH IMAGE DOCUMENTATION 3. NON-VASCULAR 4. COMPLETE STUDY WHICH INCLUDES A THOROUGH EVALUATION OF THE SHOULDER MUSCLE, TENDONS, LIGAMENTS, FATTY TISSUES, SUBCUTANEOUS TISSUES AND OTHER SOFT TISSUE STRUCTURES SUCH ABSCESSES OR FREE FLUID ACCUMULATION WITHIN THE PRIMARY JOINT WELL ADJACENT JOINTS. Live ultrasound was performed of the patient s SHOULDER and PERMANENTLY documented. This is a thorough and complete evaluation of a specific anatomic region specifically the SHOULDER. PERMANENT Image documentation was performed. This is the complete and final ultrasound report of the patient's SHOULDER. The patient was positioned in order to optimize the ultrasound evaluation of the SHOULDER. Ultrasound gel was used as a conductive medium in order to both transmit and receive ultrasonic signals that characterize the soft tissues. . I personally performed the ultrasound and reviewed the findings. These show: Findings: SHOULDER Laverne-articular evaluation: Live ultrasound was performed of the patient's SHOULDER that shows rotator cuff tendon out to the lateral margin of the anatomical footprint on the greater tuberosity. This is suggestive that the tendon repair is intact. Postoperative ultrasound is difficult to interpret because the tissue planes are disrupted by the surgery. An MRI can be obtained if there is any clinical suspicion of disruption of the repair. Procedures Orders Placed This Encounter Point of Care Ultrasound traMADol (Ultram) 50 mg tablet The contents of this note were dictated into the [employer] software. Sometimes errors in wording, punctuation, or spelling are seen. documented in this encounter [facility] Work Phone: 11-26-2024 Evaluation + Plan note Associated Problem(s): Impingement syndrome of right shoulder Assessment: 4 weeks and 3 days status post rotator cuff repair with a double row technique. Plan: Physical therapy for phase 1 Jarred's. Continue the sling but she does not need the abduction pillow. She can use it as needed. 28 tablets of oxycodone 5 mg p.o. every 6 hours as needed pain. Follow-up in 1 month for reevaluation. [facility] Work Phone: 11-26-2024 Miscellaneous Notes Associated Problem(s): Impingement syndrome of right shoulder Assessment: 4 weeks and 3 days status post rotator cuff repair with a double row technique. Plan: Physical therapy for phase 1 Codanita's. Continue the sling but she does not need the abduction pillow. She can use it as needed. 28 tablets of oxycodone 5 mg p.o. every 6 hours as needed pain. Follow-up in 1 month for reevaluation. documented in this encounter [facility] Work Phone: 11-26-2024 History of Present illness Narrative Assessment/Plan Encounter Diagnoses: Impingement syndrome of right shoulder Post-op pain No problem-specific Assessment & Plan notes found for this encounter. Impingement syndrome of right shoulder Assessment: 4 weeks and 3 days status post rotator cuff repair with a double row technique. Plan: Physical therapy for phase 1 Romulos. Continue the sling but she does not need the abduction pillow. She can use it as needed. 28 tablets of oxycodone 5 mg p.o. every 6 hours as needed pain. Follow-up in 1 month for reevaluation. Subjective Patient ID: Tabitha Fish is a 59 y.o. female. Chief Complaint: Post-op of the Right Shoulder (RIGHT ROTATOR CUFF REPAIR DONE ON 10/26/24) Last Surgery: Arthroscopic Repair of the Rotator Cuff Shoulder - Right Last Surgery Date: 10/26/2024 HPI 59-year-old comes in today 1 month status post her surgery rotator cuff reconstruction with a double row technique. She is having more pain than average although her pain level is diminishing. She ran out of her Percocet several days ago and she has been using Tylenol. However, her pain is significant and OBJECTIVE: ORTHO EXAM Right shoulder exam There is no warmth or redness. The portals are healed there is no drainage. She has full range of motion of her hand wrist and elbow. She has external rotation to 30 degrees and then pain. She gets internal rotation cross-body. Gentle passive forward elevation to 45 degrees then some guarding to about 80 degrees and then pain. Pure abduction to about 30 degrees and then pain to about 50 degrees. With passive range of motion. Neurovascularly intact distally. IMAGE RESULTS: Point of Care Ultrasound These images are not reportable by radiology and will not be interpreted by Radiologists. ULTRASOUND None Procedures Orders Placed This Encounter Point of Care Ultrasound The contents of this note were dictated into the [employer] software. Sometimes errors in wording, punctuation, or spelling are seen. documented in this encounter [facility] Work Phone: 11-05-2024 Evaluation + Plan note Associated Problem(s): Impingement syndrome of right shoulder Assessment: 10 days status post double row repair of a rotator cuff tear which was performed on 10/26/2024. Plan: I encouraged her to continue with the sling and bolster immobilization. She can take it off for self-care and showering. She can do pendulums only for gentle range of motion if she feels the need. Percocet 5 mg 28 tablets were given to the patient for pain. Follow-up in 3 weeks for reevaluation. [facility] Work Phone: 11-05-2024 Miscellaneous Notes Associated Problem(s): Impingement syndrome of right shoulder Assessment: 10 days status post double row repair of a rotator cuff tear which was performed on 10/26/2024. Plan: I encouraged her to continue with the sling and bolster immobilization. She can take it off for self-care and showering. She can do pendulums only for gentle range of motion if she feels the need. Percocet 5 mg 28 tablets were given to the patient for pain. Follow-up in 3 weeks for reevaluation. documented in this encounter [facility] Work Phone: 11-05-2024 History of Present illness Narrative Assessment/Plan Encounter Diagnoses: Impingement syndrome of right shoulder Impingement syndrome of right shoulder Assessment: 10 days status post double row repair of a rotator cuff tear which was performed on 10/26/2024. Plan: I encouraged her to continue with the sling and bolster immobilization. She can take it off for self-care and showering. She can do pendulums only for gentle range of motion if she feels the need. Percocet 5 mg 28 tablets were given to the patient for pain. Follow-up in 3 weeks for reevaluation. Subjective Patient ID: Tabitha Fish is a 59 y.o. female. Chief Complaint: Follow-up and Post-op of the Right Shoulder (Patient here with ,Jose A. Complaining of right shoulder pain x 4-5 months./Sx date 10-26-24/X-rays 08-14-24/Inj 03-30-24/Last mri 07-31-24) Last Surgery: Arthroscopic Repair of the Rotator Cuff Shoulder - Right Last Surgery Date: 10/26/2024 HPI 10 days status post 10/26/2024 arthroscopic double row repair of the right shoulder rotator cuff tear. Patient was complaining of pain but on questioning it appears this was associated with taking her sling and swath off and trying to do some range of motion of the shoulder. She understands to only do this in the manner I instructed her today. OBJECTIVE: ORTHO EXAM Right shoulder exam There is no warmth or redness. All of her portals are sealed and healing well. Neurovascularly intact distally. Range of motion of the elbow wrist and hand all within normal limits. Gentle range of motion of the older reveals external rotation to 30 degrees and internal rotation cross-body. She gets passive forward elevation to 60 degrees and then starts to have some guarding. Extension to 20 degrees. IMAGE RESULTS: Point of Care Ultrasound These images are not reportable by radiology and will not be interpreted by Radiologists. ULTRASOUND None Procedures Orders Placed This Encounter oxyCODONE-acetaminophen (Percocet) 5-325 mg tablet documented in this encounter [facility] Work Phone: 10-26-2024 Miscellaneous Notes Arthroscopic Repair of the Rotator Cuff Shoulder (R) Operative Note Date: 10/26/2024 OR Location: [facility] OR Name: Tabitha Fish, : 1965, Age: 59 y.o., , Sex: female Diagnosis Pre-op Diagnosis * Impingement syndrome of right shoulder [M75.41] Post-op Diagnosis * Impingement syndrome of right shoulder [M75.41] Procedures Arthroscopic Repair of the Rotator Cuff Shoulder 20779 - DC SURGICAL ARTHROSCOPY SHOULDER W/ROTATOR CUFF RPR Surgeons * Segun Garay - Primary Resident/Fellow/Other Catalyst Operator [employer]: Surgeons and Role: * No surgeons found with a matching role * Staff: District Captain: Artemio Scrub Person: Gary ROSEA: Katerine Anesthesia Staff: Anesthesiologist: Mundo Bruno MD Procedure Summary Anesthesia: General ASA: II Estimated Blood Loss: 0 mL Intra-op Medications: Administrations occurring from 0730 to 0950 on 10/26/24: Medication Name Total Dose EPINEPHrine (Adrenalin) 1 mg in lactated Ringer's 3,000 mL irrigation 2 mg bupivacaine PF (Marcaine) injection 0.25 % 21 mL fentaNYL PF 0.05 mg/mL 150 mcg glycopyrrolate (Robinul) injection 0.4 mg lidocaine PF (Xylocaine-MPF) 1 % 3 mL neostigmine (Bloxiverz) 1 mg/mL 2 mg 50 mL propofol 10mg/mL 100 mg rocuronium (ZeMuron) 50 mg/5 mL injection 60 mg succinylcholine 100 mg/5 mL SYRINGE 100 mg ceFAZolin (Ancef) 2 g in dextrose (iso) IV 50 mL Cannot be calculated Anesthesia Record Intraprocedure I/O Totals Intake Propofol Drip 0.00 mL The total shown is the total volume documented since Anesthesia Start was filed. Total Intake 0 mL Specimen: No specimens collected Drains and/or Catheters: * None in log * Tourniquet Times: Implants: Implants Type Name Action Serial No. Implant SPEEDBRIDGE KIT, W/BIOCOMPOSITE SWIVELOCK , 4.75 X 19.1MM - [id number] Implanted Findings: Supraspinatus tear with retraction to the humeral head vertex Indications: Tabitha Fish is an 59 y.o. female who is having surgery for Impingement syndrome of right shoulder [M75.41]. The patient was seen in the preoperative area. The risks, benefits, complications, treatment options, non-operative alternatives, expected recovery and outcomes were discussed with the patient. The possibilities of reaction to medication, pulmonary aspiration, injury to surrounding structures, bleeding, recurrent infection, the need for additional procedures, failure to diagnose a condition, and creating a complication requiring transfusion or operation were discussed with the patient. The patient concurred with the proposed plan, giving informed consent. The site of surgery was properly noted/marked if necessary per policy. The patient has been actively warmed in preoperative area. Preoperative antibiotics have been ordered and given within 1 hours of incision. Venous thrombosis prophylaxis have been ordered including bilateral sequential compression devices Procedure Details: The patient was identified in the correct shoulder was marked in the holding area. The patient understands the risks and benefits of the proposed procedure and wishes to go forward with surgical intervention. All last-minute questions were addressed and answered. Operative procedure: The patient was identified and brought to the operating room and placed in supine position on the operating room table. A regional anesthetic had been performed in the holding area. A scalene block was utilized. Patient was moved to the operating room table where they were intubated. Preoperative antibiotics had been given as required for the proposed procedure. The patient was then positioned into the beachchair position. All of the bony landmarks were padded. The neck was positioned appropriately. A lateral buttress was applied to the bed to help hold the patient in position. The patient was then sterilely prepped and draped in the usual fashion. A surgical Time-in and timeout had been performed and we confirm this was the correct patient the correct side that all the equipment necessary for the proposed procedure was available that the patient had received appropriate IV antibiotic biotics as required for this surgery. The surgical landmarks were outlined on the skin. A posterior portal was marked 2 distal to the posterior lateral corner of the acromion into centimeters medial. Arthroscopic fluid was then obtained which was lactated Ringer's that had a 1-300,000 epinephrine dilution and this was injected into the portal and also into the subacromial space. An 11 blade scalpel was made and a portal was established posteriorly. The scope was then placed into the glenohumeral joint. Diagnostic arthroscopy was performed. The following findings were noted. A spinal needle was placed through the anterior triangle area to allow for some outflow. The biceps tendon was within normal limits subacromial decompression was performed. The distal clavicle was found to have minimal osteophytes impinging. 8 to 10 mm of the anterior acromion was then carefully debrided. The CA ligament had been recessed. Hemostasis was obtained throughout with bipolar electrocautery. A speed bridge type repair double row was performed. The trocar was used to place an anterior anchor at the articular cartilage rotator cuff footprint margin just posterior to the biceps tendon. Then a second anchor was placed through a posterior placement at the articular cartilage and supraspinatus footprint. This was just anterior to the infraspinatus tendon which was not torn. Once both anchors were placed the anterior stitch was brought through medially with the tendon passer. The posterior stitch was brought through posteriorly. The stitches were then divided so 1 limb of each could be grabbed and brought through the portal laterally and the anterior lateral anchor was used to repair the cuff and placed the stitches in a knotless configuration laterally just on the lateral side of the footprint. 1 limb of each of the stitches was then harvested in a posterior interference screw knotless anchor was used. the rotator cuff was then examined and the impingement signs both Neer and Hawkin had resolved. An excellent double row repair had been achieved. The cuff was down to a bleeding border of bone and restored near anatomically to its nascent footprint. Hemostasis was obtained and the anterior acromioplasty was judged to be appropriately sized. About 8 to 10 mm of the anterior acromion having been removed. The subacromial space was copiously irrigated. Xeroform bandages were placed over the portals anterior posterior and lateral. Then compressive dressings were applied and an abduction pillow was applied. The patient tolerated the procedure well and returned to the recovery room in stable condition. Evidence of Infection: No Complications: None; patient tolerated the procedure well. Disposition: PACU - hemodynamically stable. Condition: stable Task Performed by RIGHT OF WAY BUYER or Pilot Plant Research Technician: None Additional Details: Attending Attestation: Segun Garay Current Rx Instructions for Day of Surgery[1] NPO Instructions: Do not eat any food after midnight the night before your surgery/procedure. You may have clear liquids until TWO hours before surgery/procedure. This includes water, black tea/coffee, (no milk or cream) apple juice and electrolyte drinks (Gatorade). Additional Instructions: Will need services delivery driver home, will receive call day before surgery with arrival time [1] No outpatient medications have been marked as taking for the 10/26/24 encounter (Hospital Encounter). documented in this encounter [facility] Work Phone: 10-26-2024 Surgery Surgical operation note Arthroscopic Repair of the Rotator Cuff Shoulder (R) Operative Note Date: 10/26/2024 OR Location: [facility] OR Name: Tabitha Fish, : 1965, Age: 59 y.o., , Sex: female Diagnosis Pre-op Diagnosis * Impingement syndrome of right shoulder [M75.41] Post-op Diagnosis * Impingement syndrome of right shoulder [M75.41] Procedures Arthroscopic Repair of the Rotator Cuff Shoulder 17608 - [place] SURGICAL ARTHROSCOPY SHOULDER W/ROTATOR CUFF RPR Surgeons * Segun Garay - Primary Resident/Fellow/Other Catalyst Operator [employer]oline: Surgeons and Role: * No surgeons found with a matching role * Staff: District Captain: Artemio [place] Person: Gary LUTHER: Katerine Anesthesia Staff: Anesthesiologist: Mundo Bruno MD Procedure Summary Anesthesia: General ASA: II Estimated Blood Loss: 0 mL Intra-op Medications: Administrations occurring from 0730 to 0950 on 10/26/24: Medication Name Total Dose EPINEPHrine (Adrenalin) 1 mg in lactated Ringer's 3,000 mL irrigation 2 mg bupivacaine PF (Marcaine) injection 0.25 % 21 mL fentaNYL PF 0.05 mg/mL 150 mcg glycopyrrolate (Robinul) injection 0.4 mg lidocaine PF (Xylocaine-MPF) 1 % 3 mL neostigmine (Bloxiverz) 1 mg/mL 2 mg 50 mL propofol 10mg/mL 100 mg rocuronium (ZeMuron) 50 mg/5 mL injection 60 mg succinylcholine 100 mg/5 mL SYRINGE 100 mg ceFAZolin (Ancef) 2 g in dextrose (iso) IV 50 mL Cannot be calculated Anesthesia Record Intraprocedure I/O Totals Intake Propofol Drip 0.00 mL The total shown is the total volume documented since Anesthesia Start was filed. Total Intake 0 mL Specimen: No specimens collected Drains and/or Catheters: * None in log * Tourniquet Times: Implants: Implants Type Name Action Serial No. Implant SPEEDBRIDGE KIT, W/BIOCOMPOSITE SWIVELOCK , 4.75 X 19.1MM - [id number] Implanted Findings: Supraspinatus tear with retraction to the humeral head vertex Indications: Tabitha Fish is an 59 y.o. female who is having surgery for Impingement syndrome of right shoulder [M75.41]. The patient was seen in the preoperative area. The risks, benefits, complications, treatment options, non-operative alternatives, expected recovery and outcomes were discussed with the patient. The possibilities of reaction to medication, pulmonary aspiration, injury to surrounding structures, bleeding, recurrent infection, the need for additional procedures, failure to diagnose a condition, and creating a complication requiring transfusion or operation were discussed with the patient. The patient concurred with the proposed plan, giving informed consent. The site of surgery was properly noted/marked if necessary per policy. The patient has been actively warmed in preoperative area. Preoperative antibiotics have been ordered and given within 1 hours of incision. Venous thrombosis prophylaxis have been ordered including bilateral sequential compression devices Procedure Details: The patient was identified in the correct shoulder was marked in the holding area. The patient understands the risks and benefits of the proposed procedure and wishes to go forward with surgical intervention. All last-minute questions were addressed and answered. Operative procedure: The patient was identified and brought to the operating room and placed in supine position on the operating room table. A regional anesthetic had been performed in the holding area. A scalene block was utilized. Patient was moved to the operating room table where they were intubated. Preoperative antibiotics had been given as required for the proposed procedure. The patient was then positioned into the beachchair position. All of the bony landmarks were padded. The neck was positioned appropriately. A lateral buttress was applied to the bed to help hold the patient in position. The patient was then sterilely prepped and draped in the usual fashion. A surgical Time-in and timeout had been performed and we confirm this was the correct patient the correct side that all the equipment necessary for the proposed procedure was available that the patient had received appropriate IV antibiotic biotics as required for this surgery. The surgical landmarks were outlined on the skin. A posterior portal was marked 2 distal to the posterior lateral corner of the acromion into centimeters medial. Arthroscopic fluid was then obtained which was lactated Ringer's that had a 1-300,000 epinephrine dilution and this was injected into the portal and also into the subacromial space. An 11 blade scalpel was made and a portal was established posteriorly. The scope was then placed into the glenohumeral joint. Diagnostic arthroscopy was performed. The following findings were noted. A spinal needle was placed through the anterior triangle area to allow for some outflow. The biceps tendon was within normal limits subacromial decompression was performed. The distal clavicle was found to have minimal osteophytes impinging. 8 to 10 mm of the anterior acromion was then carefully debrided. The CA ligament had been recessed. Hemostasis was obtained throughout with bipolar electrocautery. A speed bridge type repair double row was performed. The trocar was used to place an anterior anchor at the articular cartilage rotator cuff footprint margin just posterior to the biceps tendon. Then a second anchor was placed through a posterior placement at the articular cartilage and supraspinatus footprint. This was just anterior to the infraspinatus tendon which was not torn. Once both anchors were placed the anterior stitch was brought through medially with the tendon passer. The posterior stitch was brought through posteriorly. The stitches were then divided so 1 limb of each could be grabbed and brought through the portal laterally and the anterior lateral anchor was used to repair the cuff and placed the stitches in a knotless configuration laterally just on the lateral side of the footprint. 1 limb of each of the stitches was then harvested in a posterior interference screw knotless anchor was used. the rotator cuff was then examined and the impingement signs both Neer and Hawkin had resolved. An excellent double row repair had been achieved. The cuff was down to a bleeding border of bone and restored near anatomically to its nascent footprint. Hemostasis was obtained and the anterior acromioplasty was judged to be appropriately sized. About 8 to 10 mm of the anterior acromion having been removed. The subacromial space was copiously irrigated. Xeroform bandages were placed over the portals anterior posterior and lateral. Then compressive dressings were applied and an abduction pillow was applied. The patient tolerated the procedure well and returned to the recovery room in stable condition. Evidence of Infection: No Complications: None; patient tolerated the procedure well. Disposition: PACU - hemodynamically stable. Condition: stable Task Performed by RIGHT OF WAY BUYER or Pilot Plant Research Technician: None Additional Details: Attending Attestation: Segun Garay [facility] Work Phone: 10-26-2024 Attending History and physical note H&P reviewed. The patient was examined and there are no changes to the H&P. Source Note - Segun Garay MD - 10/01/2024 11:45 AM EDT See the H+P done on 10/01/24 [facility] Work Phone: 10-26-2024 History and physical note H&P reviewed. The patient was examined and there are no changes to the H&P. Source Note - Segun Garay MD - 10/01/2024 11:45 AM EDT See the H+P done on 10/01/24 documented in this encounter [facility] Work Phone: 10-21-2024 Instructions Formatting of th is note is different from the original. Current Rx Instructions for Day of Surgery[1] NPO Instructions: Do not eat any food after midnight the night before your surgery/procedure. You may have clear liquids until TWO hours before surgery/procedure. This includes water, black tea/coffee, (no milk or cream) apple juice and electrolyte drinks (Gatorade). Additional Instructions: Will need services delivery driver home, will receive call day before surgery with arrival time [1] No outpatient medications have been marked as taking for the 10/26/24 encounter (Hospital Encounter). [facility] Work Phone: 10-02-2024 History of Present illness Narrative Subjective Patient ID: Tabitha Fish is a 59 y.o. female who presents for pt here for 6 month med check (Pt here for surgical clearance - Dr Garay rotator cuff ). HPI Here today for med management and surgical clearance BMP and CBC obtained and it was WNL. Her surgery is scheduled 10/26 She does struggle with anxiety, has tried Hydroxyzine in the past and prozac without any improvement. Discussed that she does not want benzo's and I do not think they are appropriate for her either. COPD, she is managing with her spiriva and albuterol PRN. Discussed switching to Breztri or Trelegy, she does not want to switch at this time. I strongly advised Tabitha Aimee Fish to consider smoking cessation. I offered support and advice on techniques to help with cessation. >3 minutes spent discussing smoking cessation Review of Systems Constitutional: Negative for chills, fatigue and fever. Respiratory: Negative for cough and shortness of breath. Cardiovascular: Negative for chest pain, palpitations and leg swelling. Gastrointestinal: Negative for constipation, diarrhea and nausea. Genitourinary: Negative for dysuria. Musculoskeletal: Positive for arthralgias and joint swelling. Neurological: Negative for light-headedness and headaches. Objective BP 115/82 Pulse 97 Ht 1.702 m (5' 7) Wt 61.7 kg (136 lb) SpO2 97% BMI 21.30 kg/m Physical Exam Cardiovascular: Rate and Rhythm: Normal rate and regular rhythm. Heart sounds: Normal heart sounds. Pulmonary: Breath sounds: Wheezing present. No rales. Skin: Capillary Refill: Capillary refill takes less than 2 seconds. Neurological: Mental Status: She is alert and oriented to person, place, and time. Assessment/Plan Problem List Items Addressed This Visit ICD-10-CM Hypertensive heart disease with heart failure - Primary I11.0 Chronic diastolic (congestive) heart failure I50.32 Chronic systolic congestive heart failure I50.22 Acute respiratory failure, unspecified whether with hypoxia or hypercapnia J96.00 It is my medical opinion that she is cleared for shoulder surgery documented in this encounter [facility] Work Phone: 10-01-2024 History of Present illness Narrative See the H+P done on 10/01/24 documented in this encounter [facility] Work Phone: 08-14-2024 Evaluation + Plan note Associated Problem(s): Impingement syndrome of right shoulder Assessment: Impingement syndrome with a full-thickness rotator cuff tear with retraction of the supraspinatus tendon. No muscle atrophy is seen. Plan: Right shoulder rotator cuff repair performed arthroscopically. She is tentatively scheduled for 10/26/2024. She will see her private medical doctor for her normal appointment and surgical clearance on 09/22/2024. The risks, benefits, complications, treatment options, non-operative alternatives, expected recovery and outcomes were discussed with the patient. The possibilities of reaction to medication, pulmonary aspiration, injury to surrounding structures, bleeding, recurrent infection, the need for additional procedures, failure to diagnose a condition, and creating a complication requiring transfusion or operation were discussed with the patient. Shoulder stiffness, weakness, infection, rupture of biceps tendon post operative were discussed. Brachial plexus injury and axillary or mucsulocutaneous nerve injury were discussed. Rare arterial injury was mentioned. Follow-up prior to surgery for history and physical and formal consent. [facility] Work Phone: 08-14-2024 Miscellaneous Notes Associated Problem(s): Impingement syndrome of right shoulder Assessment: Impingement syndrome with a full-thickness rotator cuff tear with retraction of the supraspinatus tendon. No muscle atrophy is seen. Plan: Right shoulder rotator cuff repair performed arthroscopically. She is tentatively scheduled for 10/26/2024. She will see her private medical doctor for her normal appointment and surgical clearance on 09/22/2024. The risks, benefits, complications, treatment options, non-operative alternatives, expected recovery and outcomes were discussed with the patient. The possibilities of reaction to medication, pulmonary aspiration, injury to surrounding structures, bleeding, recurrent infection, the need for additional procedures, failure to diagnose a condition, and creating a complication requiring transfusion or operation were discussed with the patient. Shoulder stiffness, weakness, infection, rupture of biceps tendon post operative were discussed. Brachial plexus injury and axillary or mucsulocutaneous nerve injury were discussed. Rare arterial injury was mentioned. Follow-up prior to surgery for history and physical and formal consent. documented in this encounter [facility] Work Phone: 08-14-2024 History of Present illness Narrative Assessment/Plan Encounter Diagnoses: Impingement syndrome of right shoulder Acute pain of right shoulder Impingement syndrome of right shoulder Assessment: Impingement syndrome with a full-thickness rotator cuff tear with retraction of the supraspinatus tendon. No muscle atrophy is seen. Plan: Right shoulder rotator cuff repair performed arthroscopically. She is tentatively scheduled for 10/26/2024. She will see her private medical doctor for her normal appointment and surgical clearance on 09/22/2024. The risks, benefits, complications, treatment options, non-operative alternatives, expected recovery and outcomes were discussed with the patient. The possibilities of reaction to medication, pulmonary aspiration, injury to surrounding structures, bleeding, recurrent infection, the need for additional procedures, failure to diagnose a condition, and creating a complication requiring transfusion or operation were discussed with the patient. Shoulder stiffness, weakness, infection, rupture of biceps tendon post operative were discussed. Brachial plexus injury and axillary or mucsulocutaneous nerve injury were discussed. Rare arterial injury was mentioned. Follow-up prior to surgery for history and physical and formal consent. Subjective Patient ID: Tabitha Fish is a 58 y.o. female. Chief Complaint: Pain of the Right Shoulder (Patient here with ,Jose A. Complaining of right shoulder pain x 4-5 months.) Last Surgery: No surgery found Last Surgery Date: No surgery found HPI 58-year-old who comes in today for evaluation of an MRI which shows full-thickness tearing of the supraspinatus. The patient understands the risks and benefits of surgical intervention including arthroscopic reconstruction of the supraspinatus and she wishes to proceed with surgery. OBJECTIVE: ORTHO EXAM Right shoulder exam She has positive Neer and Hawkin impingement signs. She has weakness to supraspinatus isolation. She has some crepitation in the subacromial space especially with range of motion above the level of her shoulder. She is neurovascularly intact distally. IMAGE RESULTS: Point of Care Ultrasound These images are not reportable by radiology and will not be interpreted by Radiologists. ULTRASOUND DIAGNOSTIC ULTRASOUND FINAL REPORT: Right SHOULDER Provider: Segun Garay MD Date of Exam: Today Procedure: Ultrasound, extremity, nonvascular, real-time, COMPLETE, anatomic specific. Site: SHOULDER Indication: SHOULDER PAIN Technique: B-Mode Ultrasound Examination performed using 8-13 MHz linear transducer with [employer] STUDY TYPE: 1. ULTRASOUND EXTREMITY INCLUDING BUT NOT LIMITED TO SHOULDER MUSCLE, TENDONS, LIGAMENTS, FATTY TISSUES, SUBCUTANEOUS TISSUES AND OTHER SOFT TISSUE STRUCTURES SUCH ABSCESSES OR FREE FLUID ACCUMULATION WITHIN THE PRIMARY JOINT WELL ADJACENT JOINTS. 2. REAL TIME WITH IMAGE DOCUMENTATION 3. NON-VASCULAR 4. COMPLETE STUDY WHICH INCLUDES A THOROUGH EVALUATION OF THE SHOULDER MUSCLE, TENDONS, LIGAMENTS, FATTY TISSUES, SUBCUTANEOUS TISSUES AND OTHER SOFT TISSUE STRUCTURES SUCH ABSCESSES OR FREE FLUID ACCUMULATION WITHIN THE PRIMARY JOINT WELL ADJACENT JOINTS. Live ultrasound was performed of the patient s SHOULDER and PERMANENTLY documented. This is a thorough and complete evaluation of a specific anatomic region specifically the SHOULDER. PERMANENT Image documentation was performed. This is the complete and final ultrasound report of the patient's SHOULDER. The patient was positioned in order to optimize the ultrasound evaluation of the SHOULDER. Ultrasound gel was used as a conductive medium in order to both transmit and receive ultrasonic signals that characterize the soft tissues. . I personally performed the ultrasound and reviewed the findings. These show: Findings: SHOULDER Laverne-articular evaluation: Live ultrasound was performed of the patient's SHOULDER that shows full-thickness tear anteriorly of the supraspinatus and tendinosis and some partial tears of the infraspinatus tendons with the deltoid muscle fibers showing normal striations. There was no sub acromial effusion. Evaluation of the subscapularis with the arm in external rotation showed an intact and normal appearing subscapularis tendon. Joint Evaluation: The biceps tendon was visualized within the bicipital groove. Procedures Orders Placed This Encounter XR shoulder right 2+ views Point of Care Ultrasound documented in this encounter [facility] Work Phone: 07-08-2024 History of Present illness Narrative Subjective Patient ID: Tabitha Fish is a 58 y.o. female who presents for Shoulder Pain (Right shoulder). Shoulder Pain Here today for acute shoulder pain She reports the pain started this fall, Xrays showed no acute fracture. Her ROM is severely impaired by pain. She has received one cortisone injection in the joint in March with only some relief. She is in need of another injection and has an apt 07/15. She has tried NSAIDs without any relief. She has tried PO steroids without relief. Review of Systems Musculoskeletal: Positive for arthralgias and joint swelling. Objective BP 121/80 (Patient Position: Sitting) Pulse 70 Ht 1.702 m (5' 7) Wt 66.7 kg (147 lb) BMI 23.02 kg/m Physical Exam Musculoskeletal: Right shoulder: Tenderness present. Decreased range of motion. Decreased strength. Assessment/Plan Problem List Items Addressed This Visit None Visit Diagnoses Codes Acute pain of right shoulder - Primary M25.511 Relevant Medications cyclobenzaprine (Flexeril) 10 mg tablet Other Relevant Orders MR shoulder right wo IV contrast Shoulder pain -Continue following with ortho -Flexeril PRN -MRI ordered documented in this encounter [facility] Work Phone: 04-21-2024 Note SARS-COV-2 (AGENT OF COVID-19) RNA: Not detected INFLUENZA A RNA: Not detected INFLUENZA B RNA: Not detected RESPIRATORY SYNCYTIAL VIRUS (RSV) RNA: Not detected [facility] Comment on above: Performed By: #### [id number] ####[facility] LABCLIA [id number] [place] [address] [facility] 03-30-2024 History of Present illness Narrative Associated Order(s): L Inj/Asp: R subacromial bursa Images from the original note were not included. Subjective Patient ID: Tabitha Fish is a 58 y.o. female. Chief Complaint: Pain of the Right Shoulder HPI Review of Systems Constitutional: Negative. HENT: Negative. Respiratory: Positive for cough. Cardiovascular: Negative. Endocrine: Negative. Musculoskeletal: Positive for arthralgias and myalgias. Skin: Negative. Neurological: Negative. Hematological: Negative. Psychiatric/Behavioral: Negative. Objective Right Shoulder Exam Range of Motion Active abduction: 40 External rotation: 20 Forward flexion: 50 Tests Impingement: positive Drop arm: negative Sulcus: absent Other Erythema: absent Sensation: normal Pulse: present Comments: Limited range of motion in all directions Worse pain to supraspinatus insertion region No pain over bicep or biceps tendon Symptom aggravation with range of motion of the neck with left lateral lean and right rotation. Positive large trigger point to mid upper trap, also mild tension along medial scapula Full ROM of distal joints with no sx aggravation Distal motor and sensory intact, cap refill at 2 seconds. Image Results: DATE OF EXAM: Dec 18 2023 1:03PM LDX [id number] - XR SHLDR >/=3V AP/CARRINGTON AP/OTHR RT / PROCEDURE REASON: Other * * * * Physician Interpretation * * * * XR SHLDR >/=3V AP/C[place] AP/OTHR RT HISTORY: 58 years old Clinical information: Other Patient states right shoulder pain for about a month without known injury. TECHNIQUE: Images: XR SHLDR >/=3V AP/C[place] AP/OTHR RT Comparison: 08/04/2018. RESULT: Visualized right hemithorax is unremarkable No fractures or dislocations are seen. Exam End: 12/18/23 13:03 Specimen Collected: 12/18/23 13:03 Last Resulted: 12/18/23 13:24 Received From: [facility] Result Received: 01/02/24 03:15 Patient ID: Tabitha Fish is a 58 y.o. female. L Inj/Asp: R subacromial bursa on 04/03/2024 3:49 PM Indications: pain and joint swelling Details: 22 G needle, posterior approach Medications: 40 mg triamcinolone acetonide 40 mg/mL Outcome: tolerated well, no immediate complications We discussed risk and benefits of cortisone injection, patient wishes to proceed via verbal consent. Skin was prepped with Betadine, Vapocoolant spray and alcohol. Direct visualization using high-frequency linear probe of ultrasound was utilized to administer the injection of 40 mg Kenalog, 3 cc 2% lidocaine and 3 cc of bupivacaine. Patient tolerated injection well lidocaine suppression. No bleeding postinjection, bandage to site. Images were saved under MRN number into the PACS system. Procedure, treatment alternatives, risks and benefits explained, specific risks discussed. Consent was given by the patient. Immediately prior to procedure a time out was called to verify the correct patient, procedure, equipment, sales support consultant and site/side marked as required. Patient was prepped and draped in the usual sterile fashion. Assessment/Plan Encounter Diagnoses: documented in this encounter [facility] Work Phone: 03-18-2024 History of Present illness Narrative Subjective Patient ID: Tabitha Fish is a 58 y.o. female who presents for Med Management and Shoulder Pain (right). HPI Here today for yearly visit, has been to the ER for shoulder pain twice and a COPD exacerbation. COPD reports she does suffer from SOB and a chronic cough. She takes her albuterol inhaler PRN but only every other day. Did discuss COPD requirement of daily inhaler. Shoulder pain right chronic pain, had xrays in the November. Has very limited range of motion. Migraines reports over the past two years her migraines have decreased, until recent stressors in life occurred and now she is getting them weekly. She only takes Fioricet when needed, sometimes she can lay down and feel better. Post-ME was placed on entresto and farxiga. Reports she is tolerating them fine, and she is still following with cardiology. Anxiety, reports she is taking prozac and reports the medication is helpful but she would like to try and trial off. We did discuss lowering the dose to 20 mg and seeing how she tolerates it. If she needs it increased she will call. I strongly advised Tabitha Fish to consider smoking cessation. I offered support and advice on techniques to help with cessation. Spent >3 minutes discussing smoking cessation. Review of Systems Constitutional: Negative for chills, fatigue and fever. Respiratory: Positive for cough and shortness of breath. Cardiovascular: Negative for chest pain, palpitations and leg swelling. Gastrointestinal: Negative for abdominal pain, constipation, diarrhea, nausea and vomiting. Genitourinary: Negative for dysuria. Musculoskeletal: Positive for arthralgias and joint swelling. Neurological: Negative for light-headedness and headaches. Objective BP 116/84 (Patient Position: Sitting) Pulse 79 Ht 1.702 m (5' 7) Wt 66.8 kg (147 lb 3.2 oz) BMI 23.05 kg/m Physical Exam Cardiovascular: Rate and Rhythm: Normal rate and regular rhythm. Heart sounds: Normal heart sounds. Pulmonary: Breath sounds: Wheezing present. Abdominal: General: Bowel sounds are normal. Musculoskeletal: Right lower leg: No edema. Left lower leg: No edema. Skin: Capillary Refill: Capillary refill takes less than 2 seconds. Neurological: Mental Status: She is alert and oriented to person, place, and time. Assessment/Plan Problem List Items Addressed This Visit None Visit Diagnoses Codes COPD mixed type (Multi) - Primary J44.9 Relevant Medications tiotropium (Spiriva Respimat) 2.5 mcg/actuation inhaler Other migraine without status migrainosus, not intractable G43.809 Relevant Medications qmntmrlasi-gmiiinabvwhir-eqml (Fioricet) 50-300-40 mg capsule Anxiety and depression F41.9, F32.A Relevant Medications hydrOXYzine HCL (Atarax) 25 mg tablet FLUoxetine (PROzac) 20 mg capsule Other Relevant Orders TSH with reflex to Free T4 if abnormal Psychophysiological insomnia F51.04 Relevant Medications hydrOXYzine HCL (Atarax) 25 mg tablet Gastroesophageal reflux disease, unspecified whether esophagitis present K21.9 Relevant Medications omeprazole (PriLOSEC) [address] capsule Other Relevant Orders CBC and Auto Differential Primary hypertension I10 Relevant Orders Lipid Panel Health maintenance examination Z00.00 Relevant Orders Comprehensive Metabolic Panel Encounter for screening mammogram for malignant neoplasm of breast Z12.31 Relevant Orders BI mammo bilateral screening tomosynthesis Chronic right shoulder pain M25.511, G89.29 Relevant Orders Referral to Orthopaedic Surgery Care gaps -Colonoscopy done in 2021 due again in 2026 -mammo ordered -Lab work ordered COPD -Spiriva daily -Albuterol PRN Shoulder pain -Referral to ortho Anxiety -Decrease prozac to 20mg and follow up in 1-2 weeks documented in this encounter [facility] Work Phone: 01-30-2023 History of Present illness Narrative Subjective Patient ID: Tabitha Fish is a 57 y.o. female who presents for Follow-up (FU 1 year, patient offers no complaints. /Patient due for mammogram.). HPI Patient presents in annual follow-up. Patient has no acute complaints. Patient continues to take Fioricet, Coreg, Entresto, Farxiga, omeprazole, Prozac, Lasix, Atarax, Ativan, Prilosec in management of heart failure, GERD, hypertension, anxiety depression, panic attacks, and insomnia. The patient does continue to follow with cardiology regarding the hypertension and heart failure. Patient is scheduled to follow-up with them soon. Patient is due for screening labs. Last set obtained 1 year ago were relatively unremarkable. Patient is due for mammogram and will consider this. Patient is current with colonoscopy. Review of Systems Constitutional: See HPI Respiratory: No shortness of breath, No cough. Cardiovascular: See HPI Gastrointestinal: No abdominal pain, No nausea, No vomiting. Genitourinary: No dysuria, No hematuria. Musculoskeletal: No decreased range of motion. Neurologic: Alert and oriented X4, No numbness, No tingling. All other systems are negative Objective BP (!) 87/49 Pulse 74 Temp 36.6 C (97.8 F) Ht 1.676 m (5' 6) Wt 73.5 kg (162 lb 1.6 oz) BMI 26.16 kg/m Physical Exam General: Alert and oriented, No acute distress. Eye: Pupils are equal, round and reactive to light, Extraocular movements are intact, Normal conjunctiva. HENT: Normocephalic, Normal hearing, Oral mucosa is moist, No pharyngeal erythema, No sinus tenderness. Neck: Supple, Non-tender, No lymphadenopathy. Respiratory: Lungs are clear to auscultation, Respirations are non-labored, Breath sounds are equal Cardiovascular: Normal rate, Regular rhythm. Gastrointestinal: Non-distended. Musculoskeletal: Normal range of motion, Normal strength, No tenderness, No swelling, No deformity, Normal gait. Integumentary: Warm, Dry, Intact, No pallor, No rash. Neurologic: Alert, Oriented, Normal sensory, Normal motor function, No focal deficits, Cranial Nerves II-XII are grossly intact Psychiatric: Cooperative, Appropriate mood & affect. Assessment/Plan Hypertension/CHF: Patient's blood pressure was pretty low today on intake. Patient does report intermittent dizziness. Patient advised to contact cardiology regarding symptomatic hypotension. Patient advised to be very careful with this Anxiety and depression with panic attacks and insomnia: Continue Prozac, Ativan, and hydroxyzine. OARRS reviewed, appropriate, and consistent with provided history GERD: Continue omeprazole. Screening labs ordered. Medications refilled. Further recommendations pending results. Follow-up in 1 year or as needed otherwise Problem List Items Addressed This Visit None Visit Diagnoses Primary hypertension - Primary Relevant Orders CBC Comprehensive Metabolic Panel Hemoglobin A1C Lipid Panel TSH with reflex to Free T4 if abnormal Chronic congestive heart failure, unspecified heart failure type (CMS/HCC) Relevant Medications Entresto 49-51 mg tablet carvedilol (Coreg) 25 mg tablet Other Relevant Orders CBC Comprehensive Metabolic Panel Hemoglobin A1C Lipid Panel TSH with reflex to Free T4 if abnormal Gastroesophageal reflux disease, unspecified whether esophagitis present Relevant Medications omeprazole (PriLOSEC) [address] capsule Other Relevant Orders CBC Comprehensive Metabolic Panel Hemoglobin A1C Lipid Panel TSH with reflex to Free T4 if abnormal Chronic bronchitis, unspecified chronic bronchitis type (CMS/HCC) Relevant Orders CBC Comprehensive Metabolic Panel Hemoglobin A1C Lipid Panel TSH with reflex to Free T4 if abnormal Other migraine without status migrainosus, not intractable Relevant Medications qhwsonybst-xmhosjkullufb-imvv (Fioricet) 50-300-40 mg capsule Other Relevant Orders CBC Comprehensive Metabolic Panel Hemoglobin A1C Lipid Panel TSH with reflex to Free T4 if abnormal Anxiety and depression Relevant Medications hydrOXYzine HCL (Atarax) 25 mg tablet FLUoxetine (PROzac) 40 mg capsule LORazepam (Ativan) 1 mg tablet Other Relevant Orders CBC Comprehensive Metabolic Panel Hemoglobin A1C Lipid Panel TSH with reflex to Free T4 if abnormal Psychophysiological insomnia Relevant Medications hydrOXYzine HCL (Atarax) 25 mg tablet Other Relevant Orders CBC Comprehensive Metabolic Panel Hemoglobin A1C Lipid Panel TSH with reflex to Free T4 if abnormal Final diagnoses: [I10] Primary hypertension [I50.9] Chronic congestive heart failure, unspecified heart failure type (CMS/HCC) [K21.9] Gastroesophageal reflux disease, unspecified whether esophagitis present [J42] Chronic bronchitis, unspecified chronic bronchitis type (CMS/HCC) [G43.809] Other migraine without status migrainosus, not intractable [F41.9, F32.A] Anxiety and depression [F51.04] Psychophysiological insomnia documented in this encounter [facility] Work Phone: 08-21-2022 Note Send Summary: Discharge Summary Providers: Provider RoleProvider Name Kev Alford Alexander M Nurse PractitionerDeejay, Gabe Davidson Note Recipients: Gabe Mcpherson PAC Discharge: Summary: Admission Date: .19-Aug-2022 22:19:00 Discharge Date: 21-Aug-2022 Attending Physician at Discharge: dr marisol russo Admission Reason: Chest pain(1) Final Discharge Diagnoses: Chest pain Procedures: none Condition at Discharge: Satisfactory Disposition at Discharge: Home Vital Signs: T PRBPMAPSpO2 [id number]/7693% Date/Time08/21 7:0508/21 7:0508/21 7:0508/21 7:0508/21 7:05 Range(35.6C - 36.4C ) (70 - 82 ) (16 - 20 ) (100 - 119 )/ (68 - 84 ) (93% - 96% ) Date: Weight/Scale Type:Height: 19-Aug-2022 22:3373.8 kg / qhy643.1 cm Physical Exam: General Appearance: AAO x3 , not in acute distress Skin: skin color, texture, turgor normal; no suspicious rashes or lesions Eyes : PERRL, EOM's intact, conjunctiva pink ENT: no oral thrush, no pharyngeal erythema or exudates Neck: no JVD, no lymphadenopathy Respiratory: lungs clear to auscultation; no wheezing, rhonchi, or crackles Heart: RRR without murmur, gallop, or rubs, no ectopy Abdomen: Nondistended, positive bowel sounds, soft, nontender Extremities: no edema Peripheral pulses: normal and present x 4 extremities Neuro: alert, coherent and conversant, no focal motor deficits Hospital Course: 56-year-old female admitted for chest pain. Comorbidities include Previous history of an ME but no intervention, smoking history, family history and age. Her history includes hypertension, status post ME, non-O2 dependent COPD, tobacco abuse, anxiety, diverticular disease and migraines. During hospitalization you received an echo was poor quality. Stress test was performed and showed an EF of 50%. 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 Snowden recommended adding Bracht on 12.5 mg p.o. daily. Recommended to have a Holter monitor on discharge however patient reports that she is supposed to go to [facility] on and a Holter monitor will be placed at that time. Follow-up with your local company intermodal truck driver at this time. Follow-up primary care physician within 2 weeks postdischarge. 911 or go to nearest ED if symptoms worsen or persist Immunizations: Immunizations: 23-Aug-2021 SARS-CoV-2 (COVID-19): Immunizations, pfizer [id number] at [facility], 15-Jun-2021 SARS-CoV-2 (COVID-19): Immunizations, pfizer [id number] at [facility], 27-Dec-2020 SARS-CoV-2 (COVID-19): Immunizations, pfizer [id number] at [facility], 16-Nov-2020 Discharge Information: and Continuing Care: Lab Results - Pending: None Radiology Results - Pending: None Discharge Instructions: Activity: activity as tolerated. May shower.. Nutrition/Diet: resume normal diet Diet Consistency/Texture: regular / thin Additional Orders: Additional Instructions: Discharge plan Resume home medications Start spironolactone 12.5 mg p.o. daily Follow-up with primary care physician within 2 weeks postdischarge Follow-up with [facility], patient already has a scheduled appointment for this . For Holter monitor placement Call 911 or go to nearest ED if symptoms worsen or persist Follow Up Appointments: Follow-Up Appointment 01: Physician/Dept/Service: PCP- dr chew Reason for Referral: Posthospitalization Call to Schedule in: 2 weeks Follow-Up Appointment 02: Physician/Dept/Service: [facility] Reason for Referral: Posthospitalization for chest pain/already has an appointment for per patient Call to Schedule in: 2-3 days Discharge Medications: Home Medication carvedilol 25 mg oral tablet - 1 tab(s) orally 2 times a day Lasix 40 mg oral tablet - 1 tab(s) orally once a day aspirin 81 mg oral tablet - null PROzac 40 mg oral capsule - 1 cap(s) orally once a day Entresto 24 mg-26 mg oral tablet - 1 tab(s) orally 2 times a day famotidine 20 mg tablet - 1 tab(s) orally once a day omeprazole 40 mg capsule,delayed release - 1 cap(s) orally once a day Aldactone 25 mg oral tablet - 0.5 tab(s) orally once a day PRN Medication albuterol 90 mcg/inh inhalation aerosol with adapter - 1 puff(s) inhaled 3 times a day, As Needed - for shortness of breath Zofran 4 mg oral tablet - 1 tab(s) orally every 8 hours, As Needed DNR Status: Code StatusCode Status order at time of discharge: Full Code Electronic Signatures: Leonid Villalba ([employer]-[facility]) (Signed 21-Aug-2022 09:33) Authored: Send Summary, Summary Content, Immunizations, Ongoing Care, DNR Status, Note Completion Last Updated: 21-Aug-2022 09:33 by Leonid Villalba ([employer]-[facility]) References: 1. Data Referenced From History and Physical 19-Aug-2022 23:35 [facility] 08-20-2022 Note History of Present I llness: /Lactating: Are You no (1) Are You Currently Breastfeedingno Admission Reason: Chest pain HPI: TABITHA FISH is a 56 year old Female This is a 56-year-old white female whose past medical history is significant for: 1. Hypertension 2. Status post ME August 2020 with left heart catheterization at [facility] and though intervention 3. COPD not O2 dependent 4. Tobacco abuse 5. Anxiety 6. Migraine headaches 7. Anxiety 8. Diverticular disease Yesterday patient was having chest discomfort posteriorly around her left shoulder as well as under her breast on the left and under her left armpit. No radiation of the pain. She thought it was diverticulitis that she has had pain like this when she had diverticulitis so she took her dicyclomine and it did not help. She thought it was anxiety but she has not had medications for anxiety since February 2022. The pain, shortness of breath with sweats and nausea. No other complaints. She came to [facility] ER on 250 to be evaluated. [facility] vitals were stable. Labs noted below. The concern was the ECG findings as they had no old ones to compare to. She received 2 aspirins and some nitroglycerin and she is transferred to [facility] for further evaluation. PAST MEDICAL HISTORY see above PAST SURGICAL HISTORY 1. Cholecystectomy 2. Partial hysterectomy 3. x1 FAMILY HISTORY Mother is alive at age 83 Father with a history of heart disease, diabetes and 2 types of cancer with one being in the colon and the other she cannot recall 2 brothers alive and well 4 children with 2 alive and well and 2 from overdose SOCIAL HISTORY Patient is and currently not employed She smokes 4 cigarettes a day (at most she was up to a pack a day); she has been smoking for 25 years Patient is trying to quit smoking after heart attack and August 2020 No alcohol or drug abuse history Comorbidities: Comorbidites: Comorbid Conditionshypertension Social History: Social History: Smoking Statuslight user (uses <10 cig/day, OR <0.5 ppd, OR 1 can/pouch loose leaf tobacco per week, OR <0.5 vape pods per day) (1) Alcohol Usedenies(1) Drug Usedenies (1) Allergies: Toradol: Resp Distress Benadryl: Resp Distress naproxen: Resp Distress Ubrelvy: Resp Distress tramadol: Hives/Urticaria sulfa drugs: Unknown Medications Prior to Admission: carvedilol 25 mg oral tablet: 1 tab(s) orally 2 times a day Lasix 40 mg oral tablet: 1 tab(s) orally once a day aspirin 81 mg oral tablet: null albuterol 90 mcg/inh inhalation aerosol with adapter: null Zofran 4 mg oral tablet: 1 tab(s) orally every 8 hours, As Needed Fioricet oral capsule: 1 cap(s) orally every 4 hours, As Needed PROzac 40 mg oral capsule: 1 cap(s) orally once a day Entresto 24 mg-26 mg oral tablet: 1 tab(s) orally 2 times a day. Review of Systems: Constitutional: NEGATIVE: Fever, Chills Eyes: NEGATIVE: Blurry Vision, Drainage, Diploplia, Redness, Vision Loss/ Change ENMT: NEGATIVE: Nasal Discharge, Nasal Congestion, Ear Pain, Mouth Pain, Throat Pain Respiratory: POSITIVE: Shortness of Breath; NEGATIVE: Dry Cough, Productive Cough, Hemoptysis, Wheezing Cardiac: POSITIVE: Chest Pain; NEGATIVE: Dyspnea on Exertion, Orthopnea, Palpitations, Syncope Gastrointestinal: NEGATIVE: Nausea, Vomiting, Diarrhea, Constipation, Abdominal Pain Genitourinary: NEGATIVE: Discharge, Dysuria, Flank Pain, Frequency, Hematuria Musculoskeletal: NEGATIVE: Decreased ROM, Pain, Swelling, Stiffness, Weakness Neurological: NEGATIVE: Dizziness, Confusion, Headache, Seizures, Syncope Psychiatric: NEGATIVE: Mood Changes, Anxiety Objective: Objective Information: T PRBPMAPSpO2 [id number]% Date/Time08/19 22: 22: 22: 22: 22:10 Range(36.3C - 36.3C ) (83 - 83 ) (20 - 20 ) (150 - 150 )/ (102 - 102 ) (94% - 94% ) Pain reported at 08/19 22:10: 4 = Moderate Physical Exam by System: Constitutional: Awake and alert; oriented x3 with no apparent distress or respiratory distress Eyes: PERRL, EOMI, clear sclera ENMT: mucous membranes moist, no apparent injury, no lesions seen Head/Neck: Normocephalic; neck supple, no apparent injury, thyroid without mass or tenderness, No JVD, trachea midline, no bruits Respiratory/Thorax: Diminished breath sounds with rare wheezes bilaterally Cardiovascular: Regular rate and rhythm; normal S1-S2 with no murmur; no pitting edema and 2+ pulses bilaterally Gastrointestinal: Soft, nontender, nondistended, positive bowel sounds Neurological: Nonfocal, intact senses, motor, response and reflexes, normal strength; cranial nerves II through XII appear intact Psychological: Pleasant affect Recent Lab Results: Results: She is negative for influe (more content not included)... [facility] 11-15-2021 History of Present illness Narrative Patient presents in ER follow-up for chest pain. Patient was seen and treated several days ago in [place], [place] emergency department and underwent CTA, CT abdomen pelvis, chest x-ray, EKG, labs and the work-up was relatively unremarkable. Patient was administered Compazine and Pepcid which improved patient's symptoms. CT chest did show emphysema with mucous plugging. Patient then presented again to a different ER for similar and work-up confirmed previous work-up.Patient was seen initially here in July 18. Patient did not obtain labs that were ordered, did not follow-up as planned but did obtain colonoscopy which was unremarkable. Patient continues with cardiology for history of ME, CHF, and hypertension. Currently, patient has no complaints stating that symptoms have resolved. [facility] Work Phone: 10-25-2021 History of Present illness Narrative Patient presents for reevaluation of GERD and epigastric pain. Patient has been seen and ER setting several times over the past 2 months for same. Multiple cardiac and abdominal work-ups have been unremarkable. Patient was seen and treated for this last month with omeprazole and Pepcid. Symptoms resolved and then returned. ER visit yesterday yielded similar results patient was prescribed Carafate which is helping. Patient denies melena or rectal bleeding. Pain is worse at about 3:00 in the morning. Patient does smoke cigarettes and drink soda. Patient is scheduled to see gastroenterology in 3 days. [facility] Work Phone: 07-28-2021 History of Present illness Narrative Clem is a 56-year-old female underwent screening colonoscopy in July of this year colonoscopy was performed by myself and was unremarkable other than sigmoid diverticular disease. Patient states approximate 2 weeks ago developed crampy mid abdominal abdominal pain radiating to the left lower quadrant. Associate with nausea and a crampy discomfort in the left side which improved with defecation. She admits she has been mildly constipated been using laxatives. She denies any gross rectal bleeding, mucoid stools, fevers or chills. She has been to 2 ERs most recently but [facility] Saturday. CT scan at that time showed diverticular disease of the sigmoid colon without diverticulitis. Lab work was unremarkable. She was placed on H2 blockers by her family doctor 2 weeks ago without improvement was then placed on PPI therapy again without improvement along with Carafate. She been following a bland diet. Despite this when she eats she feels 20 minutes after meals she will have cramping around her periumbilical region and then pain in her left side followed by passage of stool within some relief of the pain. She denies any other symptomatology. [facility] [address] Work Phone: 10-31-2020 Miscellaneous Notes Patient arrived and patient came out to the desk dressed. She had removed IV per self and states that she was leaving. She did not want to stay here and left AMA at this time. Daija Regan CASER notified of same. Problem: Pain Goal: Manage acute pain Outcome: Partially Met Note: Nitroglycerin available for pain management Goal: Manage chronic pain Outcome: Partially Met Goal: Reduced pain sensation Outcome: Partially Met Goal: Achievement of comfort function goal Outcome: Partially Met Problem: Actual or potential alteration in health Goal: Absence of healthcare acquired conditions Outcome: Partially Met Goal: Knowledge of Interdisciplinary Plan of Care Outcome: Partially Met Goal: Knowledge of Enviroment Outcome: Partially Met documented in this encounter [facility] 10-31-2020 History and physical note [facility] Inpatient H&P 10/31/2020 [facility] Patient: Tabitha Fish Date of : 1965 (55 y.o.) PCP: Dany Nguyen MD ASSESSMENT/PLAN: Tabitha Fish 55 y.o. female with history of recent Myocardial infarction, essential hypertension, congestive heart failure and tobacco abuse. 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 female presenting from ED with complaint of left side chest pain under her left breast region that she describes as a stabbing pain, associated with a headache, shortness of breath and nausea. 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 She states she has also been under a lot of stress lately. She states she had a myocardial infarction in August 2020 and underwent a cardiac catheterization with no stent placement at [facility]. She currently continues to smoke. She states this pain is a different pain then what she experienced with her previous heart attack. She states the pain hurts when she take a deep breathe, the pain is not reproducible with palpation, she denies any shortness of breath, further nausea, denies vomiting, fever, chills, lightheadedness or dizziness. She denies any dysuria, or hematuria. She does follow with a local company intermodal truck driver in [place], [place]. She received a baby ASA and Nitroglycerin in route via EMS with no relief of chest pain. Initial troponin in ED was undetectable, EKG show no acute ST changes, CT/PE study was negative for a pulmonary embolus. The patient was referred for observation for further cardiac work-up, if troponin levels increase I recommend consulting cardiology for further evaluation. Past Medical History: Diagnosis Date Hypertension ME (myocardial infarction) (HCC) 09/14/2020 Past Surgical History: Procedure Laterality Date CARDIAC SURGERY Heart Cath CHOLECYSTECTOMY HYSTERECTOMY (CERVIX REMOVED) Allergies: Aspirin, Diphenhydramine hcl, Fioricet [[id number]], and Ketorolac Home Medications: Outpatient Medications as of 10/30/2020 Medication Sig aspirin 81 MG EC tablet Take 81 mg by mouth daily . albuterol 90 mcg/actuation inhaler INHALE 2 PUFFS BY MOUTH EVERY 4 HOURS NEEDED FOR COUGH carvediloL (COREG) 12.5 MG tablet Take 12.5 mg by mouth 2 (two) times a day . escitalopram oxalate (LEXAPRO) 10 MG tablet Take 20 mg by mouth every evening . furosemide (LASIX) 40 MG tablet Take 40 mg by mouth daily . lisinopriL (PRINIVIL,ZESTRIL) 2.5 MG tablet Take 2.5 mg by mouth daily . LORazepam (ATIVAN) 1 MG tablet Take 1 mg by mouth daily as needed FOR ANXIETY . History reviewed. No pertinent family history. Social History Tobacco Use Smoking Status Current Every Day Smoker Packs/day: 0.50 Types: Cigarettes Smokeless Tobacco Never Used Review of Systems: All other systems reviewed and negative other than HPI OBJECTIVE: Physical Examination: BP 128/84 (BP Location: Right arm, Patient Position: Lying) Pulse 74 Temp 97.4 F (36.3 C) (Oral) Resp 16 Ht 5' 6 Wt 81.2 kg (179 lb 0.2 oz) SpO2 95% BMI 28.89 kg/m General Appearance: Alert and oriented x 3, In no apparent distress HEENT: Head: Normocephalic, no lesions, without obvious abnormality. Pharynx: Dental Hygiene adequate. Normal buccal mucosa. Normal pharynx. Neck: nontender, full range of motion, no mass, no focal lymphadenopathy Respiratory: clear to auscultation bilaterally, no wheezes or crackles, no tachypnea or accessory muscle use Cardiovascular: regular rate and rhythm, no murmur, brisk capillary refill Abdominal: soft, nontender, nondistended, no hepatosplenomegaly, no mass, normal bowel sounds Skin: no rashes, no jaundice. Normal coloration and turgor. No rashes. Neurological: Grossly normal motor and sensory exam. No focal deficits. Musculoskeletal: No joint tenderness, deformity or swelling. Psychiatric: Alert, oriented x 3. Normal mood and affect. Laboratory and Additional Data Reviewed: Reviewed 10/31/20 12:56 AM: Laboratory, Microbiology, Radiology, Cardiology and Medications Recent Results (from the past 24 hour(s)) Basic Metabolic Panel Collection Time: 10/30/20 8:54 PM Result Value Ref Range Sodium 137 135 - 145 mmol/L Potassium 3.7 3.5 - 5.1 mmol/L Chloride 107 98 - 108 mmol/L Bicarbonate 28 21 - 32 mmol/L Anion Gap 6 (L) 10 - 20 mmol/L Glucose 123 (H) 65 - 99 mg/dL BUN 15 8 - 25 mg/dL Creatinine 0.95 0.40 - 1.10 mg/dL eGFR 68 >=60 mL/min/1.73 m2 BUN/Creatinine Ratio 15.8 10.0 - 20.0 Calcium 8.8 8.4 - 10.2 mg/dL NT Pro BNP Collection Time: 10/30/20 8:54 PM Result Value Ref Range NT-Pro BNP 795 (H) 0 - 300 pg/mL PT/INR Collection Time: 10/30/20 8:54 PM Result Value Ref Range Protime (PT) 12.5 11.8 - 14.3 seconds INR 1.0 0.8 - 1.1 Troponin Collection Time: 10/30/20 8:54 PM Result Value Ref Range Troponin I <15 <=45 ng/L Troponin I Interpretation Normal CBC Auto Differential Collection Time: 10/30/20 8:54 PM Result Value Ref Range WBC 8.71 4.50 - 11.00 K/mcL RBC 4.07 4.00 - 5.20 M/mcL Hemoglobin 13.0 12.0 - 16.0 g/dL Hematocrit 38.5 36.0 - 46.0 % MCV 94.6 80.0 - 100.0 fL MCH 31.9 26.0 - 34.0 pg MCHC 33.8 31.0 - 37.0 g/dL Platelets 291 150 - 400 K/mcL RDW - CV 12.6 11.6 - 14.8 % MPV 10.5 9.4 - 12.4 fL Neutrophils 59.6 % Lymphocytes 31.3 % Monocytes 7.5 % Eosinophils 0.9 % Basophils 0.5 % IG Percent 0.20 % Neutrophils Abs 5.19 1.70 - 7.00 K/mcL Lymphocytes Abs 2.73 0.90 - 4.00 K/mcL Monocytes Abs 0.65 0.30 - 0.90 K/mcL Eosinophils Abs 0.08 0.00 - 0.50 K/mcL Basophils Abs 0.04 0.00 - 0.30 K/mcL IG Absolute 0.02 0.00 - 0.30 K/mcL Nucleated RBC 0.0 % Nucleated RBC Abs 0.00 0.00 - 0.00 K/mcL Gold Top Collection Time: 10/30/20 8:54 PM Result Value Ref Range Extra Tube Hold for add-ons. Law Top Collection Time: 10/30/20 8:54 PM Result Value Ref Range Extra Tube Hold for add-ons. D-Dimer, Quantitative Collection Time: 10/30/20 8:54 PM Result Value Ref Range D-Dimer 1.15 (H) 0.27 - 0.49 mcg/mL FEU COVID-19, Molecular Collection Time: 10/30/20 11:00 PM Specimen: Nasopharyngeal; Swab Result Value Ref Range SARS-CoV-2 Not Detected Not Detected EKG: Reviewed 10/31/20 12:56 AM CULTURES: Reviewed 10/31/20 12:56 AM Radiology/Imaging: Reviewed 10/31/20 12:56 AM XR Chest 1 View Result Date: 10/30/2020 EXAMINATION: XR CHEST PA/AP 10/30/2020 9:06 pm HISTORY: ORDERING SYSTEM PROVIDED HISTORY: CHEST PAIN, TECHNOLOGIST PROVIDED HISTORY: Illness/Other Reason for exam: chest pain; headache Cancer History: Surgery, RadiationHistory: Encounter Type: Initial Additional signs and symptoms: ORDERING SYSTEM PROVIDED DIAGNOSIS CODES: COMPARISON: None FINDINGS: Normal cardiomediastinal silhouette. 8 mm nodule in the right lower lung. Hazy bibasilar opacities, which may represent atelectasis. No large pleural effusion or pneumothorax. No acute osseous abnormalities. 1. Hazy bibasilar opacities, which may represent atelectasis. Infectious infiltrates not excluded. Clinical correlation advised. 2. 8 mm nodule in the right lower lung. Consider further evaluation with CT chest. Workstation ID: [id number] Pending Lab and Radiology Results Order Current Status CT Pulmonary Arteries In process Interpretation of Testing: I personally reviewed the EKG and Chest X-ray and agree with the interpretation(s). Associated attestation - Wilbert Decker MD - 10/31/2020 6:47 AM EDT Patient seen and managed independently by BALANCE RECESSER. I did not participate in the care of this patient, but was available for immediate consultation if requested by the BALANCE RECESSER. documented in this encounter [facility] 10-30-2020 Emergency department Note Associated Order(s): ECG 12 Lead [facility] MEDICAL OBSERVATION PCP - Dany Nguyen MD Please excuse grammar and misspelling secondary to Dragon dictation use Chief Complaint Patient presents with Chest Pain Headache HPI Chief complaint chest pain This is a 55-year-old with past medical history significant for congestive heart failure tobaccoism hypertension presents to the ED by EMS squad complains of left-sided chest pain. Patient states that she did have a heart attack sep 14 2020. The patient states she did undergo heart catheterization but no stents were placed. Patient states she only takes a baby aspirin along with her baby aspirin Lasix carvedilol and lisinopril. Patient states the chest pains are about 2 hours ago left side feels different than her previous heart episode. Patient states she does have a history of congestive heart failure but this pain feels different. Pain did not radiate to arm jaw or neck. Patient states she has been under a lot of stress. On route to the hospital she is given aspirin and nitroglycerin without relief of symptoms. The patient states that she remembers feeling very short of breath in August with her episode but she denies having shortness of breath with current symptoms. Pain is not worse with any activity exertion or movement. Patient denies any cough or recent illness patient does admit to being under some stress. Patient was transported by EMS squad to the hospital given nitro aspirin without any relief. She states she does have some associated nausea. MEDICAL DECISION MAKING 55-year-old female presents here with complaint of chest tightness and pain started approximately 2 hours prior to arrival pain is left side. Patient states that nitro did not really relieve her pain but was severe she was under some stress at the time. Patient reports to have coronary disease but did not require any intervention per patient she is on baby aspirin she states she does have a history of congestive heart failure in the ED I did evaluate patient for acute coronary syndrome PE dissection musculoskeletal pain possible GI or anxiety related symptoms. Given the patient's cardiac risk factor and not relieving with nitro pain patient will be hospitalized she did receive Tylenol and morphine in the ED she does have a left bundle branch block no old EKG available for comparison I did attempt to review records from [facility] which is unavailable at this time she remained stable in the emergency department . Results for orders placed or performed during the hospital encounter of 10/30/20 COVID-19, Molecular Specimen: Nasopharyngeal; Swab Result Value Ref Range SARS-CoV-2 Not Detected Not Detected Basic Metabolic Panel Result Value Ref Range Sodium 137 135 - 145 mmol/L Potassium 3.7 3.5 - 5.1 mmol/L Chloride 107 98 - 108 mmol/L Bicarbonate 28 21 - 32 mmol/L Anion Gap 6 (L) 10 - 20 mmol/L Glucose 123 (H) 65 - 99 mg/dL BUN 15 8 - 25 mg/dL Creatinine 0.95 0.40 - 1.10 mg/dL eGFR 68 >=60 mL/min/1.73 m2 BUN/Creatinine Ratio 15.8 10.0 - 20.0 Calcium 8.8 8.4 - 10.2 mg/dL NT Pro BNP Result Value Ref Range NT-Pro BNP 795 (H) 0 - 300 pg/mL PT/INR Result Value Ref Range Protime (PT) 12.5 11.8 - 14.3 seconds INR 1.0 0.8 - 1.1 Troponin Result Value Ref Range Troponin I <15 <=45 ng/L Troponin I Interpretation Normal Gold Top Result Value Ref Range Extra Tube Hold for add-ons. Law Top Result Value Ref Range Extra Tube Hold for add-ons. D-Dimer, Quantitative Result Value Ref Range D-Dimer 1.15 (H) 0.27 - 0.49 mcg/mL FEU CBC Auto Differential Result Value Ref Range WBC 8.71 4.50 - 11.00 K/mcL RBC 4.07 4.00 - 5.20 M/mcL Hemoglobin 13.0 12.0 - 16.0 g/dL Hematocrit 38.5 36.0 - 46.0 % MCV 94.6 80.0 - 100.0 fL MCH 31.9 26.0 - 34.0 pg MCHC 33.8 31.0 - 37.0 g/dL Platelets 291 150 - 400 K/mcL RDW - CV 12.6 11.6 - 14.8 % MPV 10.5 9.4 - 12.4 fL Neutrophils 59.6 % Lymphocytes 31.3 % Monocytes 7.5 % Eosinophils 0.9 % Basophils 0.5 % IG Percent 0.20 % Neutrophils Abs 5.19 1.70 - 7.00 K/mcL Lymphocytes Abs 2.73 0.90 - 4.00 K/mcL Monocytes Abs 0.65 0.30 - 0.90 K/mcL Eosinophils Abs 0.08 0.00 - 0.50 K/mcL Basophils Abs 0.04 0.00 - 0.30 K/mcL IG Absolute 0.02 0.00 - 0.30 K/mcL Nucleated RBC 0.0 % Nucleated RBC Abs 0.00 0.00 - 0.00 K/mcL Radiographic Imaging (if any) During ED Visit All Radiographic Imaging (if any) were read by Radiologist and reviewed and viewed by myself I have also reviewed narcotic score prior to giving any narcotic pain medications CT Pulmonary Arteries Final Result 1. No evidence for acute mediastinal process or obvious pulmonary embolism. 2. No evidence for thoracic lymphadenopathy. 3. No evidence of infiltrate or effusion. Chronic changes and findings of mild COPD noted. Workstation ID: [id number] XR Chest 1 View Final Result 1. Hazy bibasilar opacities, which may represent atelectasis. Infectious infiltrates not excluded. Clinical correlation advised. 2. 8 mm nodule in the right lower lung. Consider further evaluation with CT chest. Workstation ID: [id number] Medications Ordered/Given During ED Visit Medications aspirin EC tablet 81 mg (has no administration in time range) carvediloL (COREG) tablet 12.5 mg (has no administration in time range) escitalopram oxalate (LEXAPRO) tablet 20 mg (has no administration in time range) furosemide (LASIX) tablet 40 mg (has no administration in time range) lisinopriL (PRINIVIL,ZESTRIL) tablet 2.5 mg (has no administration in time range) LORazepam (ATIVAN) tablet 1 mg (has no administration in time range) heparin (porcine) injection 5,000 Units (has no administration in time range) atorvastatin (LIPITOR) tablet 40 mg (has no administration in time range) nitroGLYCERIN (NITROSTAT) SL tablet 0.4 mg (has no administration in time range) aluminum-magnesium hydroxide-simethicone (MAALOX PLUS) 200-200-20 mg/5 mL suspension 30 mL (has no administration in time range) ondansetron (ZOFRAN) injection 4 mg (4 mg Intravenous Given 10/30/202137) acetaminophen (TYLENOL) tablet 975 mg (975 mg Oral Given 10/30/202200) morphine syringe 4 mg (4 mg Intravenous Given 10/30/202201) sodium chloride (PF) (NS) 0.9 % contrast line flush 10 mL (10 mL Intravenous Given 10/30/202349) And sodium chloride (PF) (NS) 0.9 % contrast line flush 80 mL (80 mL Intravenous Given 10/30/202349) And iopamidoL (ISOVUE-370) 76 % injection 75 mL (75 mL Intravenous Contrast Administered 10/30/209) ECG 12 Lead Date/Time: 10/30/2020 8:59 PM Performed by: Jayme Calles MD Authorized by: Farzana Lopez MD Interpreted by ED attending physician Previous ECG: no previous ECG available Rhythm: sinus rhythm BPM: 83 Conduction: conduction normal Conduction: complete LBBB ST Segments: ST segments normal DC Interval: 178 QRS Interval: 154 QT Interval: 517 Clinical impression: non-specific ECG Review of Systems Review of Systems Constitutional: Negative for appetite change, chills and fever. HENT: Negative for ear pain and sore throat. Eyes: Negative for visual disturbance. Respiratory: Negative for shortness of breath. Cardiovascular: Negative for chest pain, palpitations and leg swelling. Gastrointestinal: Positive for nausea. Negative for abdominal pain, constipation, diarrhea and vomiting. Endocrine: Negative for polyuria. Genitourinary: Negative for difficulty urinating, dysuria and flank pain. Musculoskeletal: Positive for arthralgias. Negative for back pain, myalgias and neck stiffness. Skin: Negative for color change and rash. Neurological: Negative for dizziness, weakness and light-headedness. Psychiatric/Behavioral: Negative for confusion, hallucinations and suicidal ideas. The patient is nervous/anxious. All other systems reviewed and are negative. All systems reviewed negative except as mentioned above. Physical Exam Vital Signs During ED Visit (as charted by nursing) Patient Vitals for the past 24 hrs: BP Temp Temp src Pulse Resp SpO2 Height Weight 10/31/20 0036 128/84 97.4 F (36.3 C) Oral 74 16 95 % 5' 6 81.2 kg (179 lb 0.2 oz) 10/31/20 0000 (!) 97/57 74 93 % 10/30/20 2353 123/74 72 16 95 % 10/30/20 2336 (!) 100/54 75 18 94 % 10/30/20 2302 132/68 71 93 % 10/30/20 2230 116/78 69 18 96 % 10/30/20 2215 80 94 % 10/30/20 2201 (!) 97/58 79 93 % 10/30/20 2130 115/67 76 93 % 10/30/20 2115 121/88 88 94 % 10/30/20 2100 (!) 138/90 88 94 % 10/30/20 2044 (!) 126/94 98.3 F (36.8 C) Oral (!) 100 18 93 % 5' 6 74.8 kg (165 lb) Physical Exam Constitutional: General: She is not in acute distress. Appearance: She is well-developed. She is not diaphoretic. HENT: Head: Normocephalic and atraumatic. Right Ear: External ear normal. Left Ear: External ear normal. Eyes: Pupils: Pupils are equal, round, and reactive to light. Cardiovascular: Rate and Rhythm: Normal rate and regular rhythm. Pulses: Normal pulses. Heart sounds: Normal heart sounds, S1 normal and S2 normal. No murmur heard. Pulmonary: Effort: Pulmonary effort is normal. No respiratory distress. Breath sounds: Normal breath sounds. Abdominal: General: Bowel sounds are normal. There is no distension. Palpations: Abdomen is soft. There is no mass. Tenderness: There is no abdominal tenderness. There is no guarding. Negative signs include Agudelo's sign and McBurney's sign. Hernia: No hernia is present. Musculoskeletal: General: Normal range of motion. Cervical back: Neck supple. Lymphadenopathy: Cervical: No cervical adenopathy. Skin: General: Skin is warm. Capillary Refill: Capillary refill takes less than 2 seconds. Neurological: Mental Status: She is alert and oriented to person, place, and time. She is not disoriented. Cranial Nerves: No cranial nerve deficit. Psychiatric: Attention and Perception: Attention normal. Mood and Affect: Mood is anxious. Speech: Speech normal. Behavior: Behavior normal. Cognition and Memory: Cognition normal. Past Medical History Past Medical History: Diagnosis Date Hypertension ME (myocardial infarction) ([facility]) 09/14/2020 Past Surgical History Past Surgical History: Procedure Laterality Date CARDIAC SURGERY Heart Cath CHOLECYSTECTOMY HYSTERECTOMY (CERVIX REMOVED) Family History History reviewed. No pertinent family history. Social History Social History Socioeconomic History Marital status: Spouse name: Not on file Number of children: Not on file Years of education: Not on file Highest education level: Not on file Occupational History Not on file Tobacco Use Smoking status: Current Every Day Smoker Packs/day: 0.50 Types: Cigarettes Smokeless tobacco: Never Used Vaping Use Vaping Use: Never used Substance and Sexual Activity Alcohol use: Never Drug use: Never Sexual activity: Not on file Other Topics Concern Not on file Social History Narrative Not on file Social Determinants of Health Financial Resource Strain: Difficulty of Paying Living Expenses: Food Insecurity: Worried About Running Out of Food in the Last Year: Ran Out of Food in the Last Year: Transportation Needs: Lack of Transportation (Medical): Lack of Transportation (Non-Medical): Physical Activity: Days of Exercise per Week: Minutes of Exercise per Session: Stress: Feeling of Stress : Social Connections: Frequency of Communication with Friends and Family: Frequency of Social Gatherings with Friends and Family: Attends Pentec[employer] Services: Active Member of Clubs or Organizations: Attends Club or Organization Meetings: Marital Status: Allergies Allergies Allergen Reactions Aspirin Anaphylaxis PT STATES CAN TAKE LOW DOSES Diphenhydramine Hcl Hives Fioricet [Hdanelwplm-Jwswbevlndhrw-Gzws] Ketorolac Hives Medications Patient's Medications New Prescriptions No medications on file Previous Medications ALBUTEROL 90 MCG/ACTUATION INHALER INHALE 2 PUFFS BY MOUTH EVERY 4 HOURS NEEDED FOR COUGH ASPIRIN 81 MG EC TABLET Take 81 mg by mouth daily . CARVEDILOL (COREG) 12.5 MG TABLET Take 12.5 mg by mouth 2 (two) times a day . ESCITALOPRAM OXALATE (LEXAPRO) 10 MG TABLET Take 20 mg by mouth every evening . FUROSEMIDE (LASIX) 40 MG TABLET Take 40 mg by mouth daily . LISINOPRIL (PRINIVIL,ZESTRIL) 2.5 MG TABLET Take 2.5 mg by mouth daily . LORAZEPAM (ATIVAN) 1 MG TABLET Take 1 mg by mouth daily as needed FOR ANXIETY . 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 1. How are you feeling since your ED visit? Spoke with patient's mother who states patient is currently admitted at [facility] Have your symptoms improved or resolved? Not applicable 2. Were you prescribed any medications while in the ED or advised to stop any medication? Not applicable - If yes, were you able to fill your prescriptions? Not applicable -if stopped medication, what was the medication? n/a 3. Were you advised to schedule a follow up appointment with your provider? Not applicable - If no, Do you feel like you need an appointment scheduled? Not applicable - If yes, Do you need this scheduled now or has this already been scheduled? Not applicable 4. Were you able to contact the office or building insulation supervisor provider prior to your ED visit? Not applicable 5. Is there anything else I can do for you today? Not applicable Isael Perez MA Allergies As of Date: 09/15/2020 Noted Allergy Reaction ASPIRIN 08/04/2018 10 - Anaphylaxis BENADRYL (DIPHENHYDRAMINE HCL) 11/10/2018 4 - Hives BUSPAR (BUSPIRONE) 12/12/2018 5 - Intolerance NAPROXEN 08/04/2018 10 - Anaphylaxis TORADOL (KETOROLAC) 08/04/2018 4 - Hives Date Reviewed: 10/05/2019 Reviewed by: Florecita Marks - Fully Assessed Reason for Visit: ER F/U [41] Prescriptions as of 09/15/2020 Sig: ALBUTEROL SULFATE HFA 90 MCG/* Inhale 2 Puffs as instructed * HYDROCHLOROTHIAZIDE 25 MG TAB* TAKE 1 TABLET BY MOUTH ONCE D* METOPROLOL TARTRATE 50 MG TAB* TAKE 1 TABLET BY MOUTH TWICE * CYCLOBENZAPRINE 10 MG TABLET Take 1 tablet by mouth three * AMITRIPTYLINE 25 MG TABLET Take 1 tablet by mouth daily * OMEPRAZOLE 20 MG CAPSULE,SENG* Take 1 capsule by mouth once * TGLOLIQLIY-[id number]* Take 1 capsule by mouth every* PROMETHAZINE 25 MG TABLET TAKE 1 TABLET BY MOUTH EVERY * ATORVASTATIN 10 MG TABLET Take 1 tablet by mouth once d* Problem List As Of Date 09/15/2020 Noted Resolved History of migraine headaches [Z86.69] 08/19/2018 History of tachycardia [Z87.898] 08/22/2018 Hypertension, essential [I10] 08/22/2018 Acute bilateral low back pain without sciatica *10/23/2018 Poor posture [R29.3] 11/17/2018 Primary insomnia [F51.01] 01/12/2019 Aortic atherosclerosis (HCC) [I70.0] 02/13/2019 GERD with esophagitis [K21.00] 02/13/2019 Anxiety and depression [F41.9, F32.9] 04/07/2019 DDD (degenerative disc disease), thoracic [M51.*09/07/2019 Positive urine drug screen [R82.5] 10/09/2019 Encounter Status:Closed by ISAEL PEREZ on 09/15/20 [facility] 09-15-2020 Note HNO ID: [id number] Author: Isael Perez MA Service: ? Author Type: It Risk Analyst Type: Progress Notes Filed: 09/15/2020 10:25 AM Note Text: ED Follow Up: Patient discharged from [place] ED on 09/14/20. 1. How are you feeling since your ED visit? Spoke with patient's mother who states patient is currently admitted at [facility] Have your symptoms improved or resolved? Not applicable 2. Were you prescribed any medications while in the ED or advised to stop any medication? Not applicable - If yes, were you able to fill your prescriptions? Not applicable -if stopped medication, what was the medication? n/a 3. Were you advised to schedule a follow up appointment with your provider? Not applicable - If no, Do you feel like you need an appointment scheduled? Not applicable - If yes, Do you need this scheduled now or has this already been scheduled? Not applicable 4. Were you able to contact the office or building insulation supervisor provider prior to your ED visit? Not applicable 5. Is there anything else I can do for you today? Not applicable Isael Perez MA [facility] 09-14-2020 Emergency department Note ED PROVIDER NOTE [facility] EMERGENCY DEPARTMENT NAME: Tabitha Fish AGE: 54 y.o. : 1965 VISIT DATE: 09/14/2020 CSN: [id number] PCP: Physician No Chief Complaint Patient presents with Hemorrhoids HPI HPI: 54-year-old female presenting for evaluation of bloody bowel movement today. Patient reports that she has been constipated recently, took a laxative last night, felt some gurgling in her abdomen this morning but was unable to have a bowel movement. She then drank some coffee and this was followed by passage of a loose bowel movement along with about a teaspoon or a tablespoon of red blood. This is accompanied by nausea and some rectal pain. Patient reports that she has been having intermittent rectal pain for a few months; worse with straining and sitting. For the last few days she is experienced trace rectal bleeding, with a drop or 2 now and then. Today was the most blood she is seen. Severity: Moderate Location: as above* Radiating to: only as above; otherwise none* Exacerbated by: only as above; otherwise none* Relieved by: only as above; otherwise none* Associated with: only as above; otherwise none* Historian(s) deny any other concerns. ROS negative except as above. I have reviewed and agree with the available nursing notes except as otherwise reported. I have reviewed available medical records. REVIEW OF SYSTEMS: Const: No fever Eyes: No vision change ENT: No congestion No sore throat CV: No CP No syncope or near syncope Resp: No cough No SOB GI: No Abdo pain nausea No vomiting No diarrhea constipation No hematochezia No melena : No dysuria No hematuria MSK: Negative except as noted in HPI Skin: No rash Neuro: Nl mental status No BARRETO Hem: No bleeding/clotting problems Psych: Nl behavior except as otherwise noted PHYSICAL EXAM: Patient Vitals for the past 24 hrs: BP Temp Temp src Pulse Resp SpO2 Height Weight 09/14/20 0932 (!) 102 (!) 20 97 % 09/14/20 0903 (!) 155/100 98.2 F (36.8 C) Temporal (!) 116 (!) 20 97 % 5' 6 72.6 kg (160 lb) VS Reviewed. Constitutional: Non-toxic Head: Normocephalic Atraumatic Eyes: PERRL EOMi ENT: Mouth Masked Neck: Nl ROM trachea midline Cardiovascular: Regular mild tachycardia Nl heart sounds Nl symmetric UE & LE pulses Nl color & cap refill peripherally Respiratory: Borderline tachypnea; no resp distress CTAB Gastrointestinal: Non-distended Mildly increased bowel sounds Soft NTTP except for mild suprapubic tenderness No guarding No rebound No pulsatile mass Rectal examination performed with female RN Ren at the bedside assisting. Notable for an external hemorrhoid around the 3 o'clock position, not thrombosed, not bleeding, but tender to palpation. 1 palpable possible internal hemorrhoid, also soft nonthrombosed. No gross blood or melena on the glove; soft brown stool present in the vault, guaiac negative. Patient tolerated the exam well. Genitourinary: Deferred Back Nl inspection NTTP Upper Extremities: Nl inspection Nl peripheral pulses Lower Extremities: Nl inspection No edema Neurologic: Alert Answers questions appropriately no focal deficits Psych: Appropriate Skin: Warm Dry Nl color No acute/emergency findings unless otherwise specified Past Medical History: Diagnosis Date Hypertension Past Surgical History: Procedure Laterality Date CHOLECYSTECTOMY HYSTERECTOMY (CERVIX REMOVED) History reviewed. No pertinent family history. Social History Socioeconomic History Marital status: Spouse name: Not on file Number of children: Not on file Years of education: Not on file Highest education level: Not on file Occupational History Not on file Tobacco Use Smoking status: Current Every Day Smoker Packs/day: 1.00 Types: Cigarettes Smokeless tobacco: Never Used Substance and Sexual Activity Alcohol use: Never Drug use: Never Sexual activity: Not on file Other Topics Concern Not on file Social History Narrative Not on file Social Determinants of Health Financial Resource Strain: Difficulty of Paying Living Expenses: Food Insecurity: Worried About Running Out of Food in the Last Year: Ran Out of Food in the Last Year: Transportation Needs: Lack of Transportation (Medical): Lack of Transportation (Non-Medical): Physical Activity: Days of Exercise per Week: Minutes of Exercise per Session: Stress: Feeling of Stress : Social Connections: Frequency of Communication with Friends and Family: Frequency of Social Gatherings with Friends and Family: Attends Pentecostalism Services: Active Member of Clubs or Organizations: Attends Club or Organization Meetings: Marital Status: No current outpatient medications on file prior to encounter. Allergies Allergen Reactions Aspirin Anaphylaxis Diphenhydramine Hcl Hives Fioricet [Ipodjnpecm-Txibjsdmbtpqn-Pjed] Ketorolac Hives Review of Systems Patient Vitals for the past 24 hrs: BP Temp Temp src Pulse Resp SpO2 Height Weight 09/14/20 0932 (!) 102 (!) 20 97 % 09/14/20 0903 (!) 155/100 98.2 F (36.8 C) Temporal (!) 116 (!) 20 97 % 5' 6 72.6 kg (160 lb) Physical Exam Laboratory & Radiographic Imaging (if done): No results found for this visit on 09/14/20. No orders to display Procedures MDM Medical Decision Making DDx (including but not limited to): Bleeding hemorrhoid No indication of: Thrombosed hemorrhoid Fissure Fistula Diverticulitis Bacterial colitis Bowel obstruction peptic ulcer disease/gastritis Hepatobiliary emergency Pancreatitis UTI Appendicitis C. difficile colitis Ischemic colitis Incarcerated/strangulated hernia DKA AAA Angina Ureteral colic /complication Ovarian cyst Ovarian torsion Discharge Considered appropriately wide DDx. At this time, acutely dangerous emergency conditions found to be unlikely based on history, exam, vitals and any testing, except as otherwise specified, and patient is appropriate for outpatient management. Pt will return to the ED if condition is worsening in any way, or if new sx arise. They understand, are appreciative and comfortable with outpatient plan including follow-up and return ED recommendations as discussed. Pt appears nontoxic, well-hydrated and comfortable. . Clinical Impression: 1. Bleeding hemorrhoid ED Disposition ED Disposition Condition Comment Discharge Stable Tabitha Fish discharged to home/self care in stable condition. Follow-up Information 1. your regular primary care provider, or a primary care (or urgent care) clinic of your choice. Why: For recheck, to make sure that you are improving Contact information for after-discharge care Follow-up information has not been specified. New Prescriptions hydrocortisone 1 % cream Apply topically 2 (two) times a day . Kang Vo MD 09/14/20 0939 C/o nause, rectal pain thinks it may be related to hemorrhoids over the past few days, worse today. Intermittent pain for past few months. documented in this encounter [facility] Evaluation note Diagnosis Bleeding hemorrhoid- Primary Unspecified hemorrhoids with other complication [facility] Diagnosis Chest pain, unspecified type Coronary artery disease, unspecified vessel or lesion type, unspecified whether angina present, unspecified whether [place] or transplanted heart H/O CHF Nodule of right lung Other diseases of lung, not elsewhere classified Essential hypertension Unspecified essential hypertension Tobacco dependence Tobacco use disorder [facility] Diagnosis Primary hypertension- Primary Unspecified essential hypertension Chronic congestive heart failure, unspecified heart failure type (CMS/HCC) Gastroesophageal reflux disease, unspecified whether esophagitis present Chronic bronchitis, unspecified chronic bronchitis type (CMS/HCC) Other migraine without status migrainosus, not intractable Anxiety and depression Psychophysiological insomnia Persistent disorder of initiating or maintaining sleep documented in this encounter [facility] Work Phone: Evaluation note* Diagnosis COPD mixed type (Multi)- Primary Other migraine without status migrainosus, not intractable Anxiety and depression Psychophysiological insomnia Persistent disorder of initiating or maintaining sleep Gastroesophageal reflux disease, unspecified whether esophagitis present Primary hypertension Unspecified essential hypertension Health maintenance examination Unspecified general medical examination Encounter for screening mammogram for malignant neoplasm of breast Chronic right shoulder pain Pain in joint, shoulder region documented in this encounter [facility] Work Phone: Evaluation note* Diagnosis Impingement syndrome of right shoulder- Primary Chronic right shoulder pain Pain in joint, shoulder region documented in this encounter [facility] Work Phone: Evaluation note* Diagnosis Acute pain of right shoulder- Primary documented in this encounter [facility] Work Phone: Evaluation note* Diagnosis Acute pain of right shoulder documented in this encounter [facility] Work Phone: [phone] note* Diagnosis Impingement syndrome of right shoulder Acute pain of right shoulder documented in this encounter [facility] Work Phone: [phone] note* Diagnosis Impingement syndrome of right shoulder Acute pain of right shoulder Impingement syndrome of right shoulder documented in this encounter [facility] Work Phone: [phone] note* Diagnosis Impingement syndrome of right shoulder Acute pain of right shoulder Impingement syndrome of right shoulder- Primary Impingement syndrome of right shoulder- Primary Impingement syndrome of right shoulder documented in this encounter [facility] Work Phone: [phone] note* Diagnosis Impingement syndrome of right shoulder Acute pain of right shoulder Impingement syndrome of right shoulder- Primary Hypertensive heart disease with heart failure- Primary Unspecified hypertensive heart disease with heart failure Chronic diastolic (congestive) heart failure Chronic systolic congestive heart failure Acute respiratory failure, unspecified whether with hypoxia or hypercapnia Impingement syndrome of right shoulder documented in this encounter [facility] Work Phone: [phone] note* Diagnosis Impingement syndrome of right shoulder Acute pain of right shoulder Impingement syndrome of right shoulder- Primary Impingement syndrome of right shoulder documented in this encounter [facility] Work Phone: [phone] note* Diagnosis Impingement syndrome of right shoulder Acute pain of right shoulder Impingement syndrome of right shoulder- Primary documented in this encounter [facility] Work Phone: [phone] note* Diagnosis Impingement syndrome of right shoulder Acute pain of right shoulder Impingement syndrome of right shoulder- Primary Impingement syndrome of right shoulder Post-op pain Other acute postoperative pain documented in this encounter [facility] Work Phone: [phone] note* Diagnosis Impingement syndrome of right shoulder Acute pain of right shoulder Impingement syndrome of right shoulder- Primary Impingement syndrome of right shoulder Post-op pain Other acute postoperative pain Impingement syndrome of right shoulder Postoperative examination Follow-up examination, following unspecified surgery Post-op pain Other acute postoperative pain documented in this encounter [facility] Work Phone: [phone] of Present illness Narrative* Patient presents in ER follow-up for GERD exacerbation. Patient ate chili and subsequently sufferedsevere heartburn/chest pain prompting ER visit. Cardiac work-up was unremarkable. Patient recoveredwell with treatment. Patient states that omeprazole and Pepcid are generally very good at managing chronic symptoms. * Concerning anxiety and depression, patient reports significant improvement with current treatment but still 2-3 panic attacks weekly. [facility] Work Phone: Hospital Discharge instructions* Instructions* Kang Vo MD - 09/14/2020 If unable to follow-up with the physician/clinic recommended above, please see an Urgent Care Clinic for re-evaluation within the same number of days. Return to the nearest emergency department at any time if there is: any new, returning or worsening symptoms pain that is changing character or location nausea/vomiting/diarrhea that prevents staying well-hydrated (e.g., sunken eyes, dry mouth, decreased urine production) new or changing rash fever > 100.4 (or feeling like there is a high fever if you don't have a thermometer) uncontrollable shaking chills difficulty following up as recommended or any other concerns about your condition or treatment. best regards, Kang Vo MD * Attachments The following attachments cannot be sent through Care Everywhere. * Hemorrhoids ([place]) [facility] encounter[facility] for [facility] (narrative)* Consultation (Routine) - Authorized Specialty Diagnoses / Procedures Referred By Neil bernstein Referred To Contact Primary Care Procedures Follow Up In Primary Care - Established Gabe Mcpherson PA-C [address] [place] [address] [place] [address] Referral ID Status Reason Start Date Expiration Date V isits Requested Visits Authorized [id number] Authorized 01/30/2023 07/29/2023 1 1 [facility] Work Phone: Reason for visit Narrative* Imaging (Routine) - Authorized Specialty Diagnoses / Procedures Referred By Neil bernstein Referred To Contact Radiology Diagnoses Acute pain of right shoulder Procedures MR shoulder right wo IV contrast Catrachita Terry, COMMISSIONED FIRE OFFICER-BALANCE RECESSER [address] [facility] [place] [address] Phone: tel: fax: [address] [phone] Phone: tel: fax: Referral ID Status Reason Start Date Expiration Date Visits Requested Visits Authorized [id number] Authorized Perform Procedure 07/08/2024 07/08/2025 1 1 [facility] Work Phone: Reason for visit Narrative* Imaging (Routine) - Authorized Specialty Diagnoses / Procedures Referred By Neil bernstein Referred To Contact Radiology Diagnoses Impingement syndrome of right shoulder Procedures XR shoulder right 2+ views Segun Garay MD [address] [place] [address] Phone: tel: fax: Referral ID Status Reason Start Date Expiration Date Visits Requested Visits Authorized [id number] Authorized Perform Procedure 08/10/2024 08/10/2025 1 1 [facility] Work Phone: Reason for visit Narrative* Auth/Cert Specialty Diagnoses / Procedures Referred By Neil bernstein Referred To Contact Diagnoses Impingement syndrome of right shoulder Impingement syndrome of right shoulder [M75.41] Procedures DC SURGICAL ARTHROSCOPY SHOULDER W/ROTATOR CUFF RPR Arthroscopic Repair of the Rotator Cuff Shoulder Segun Garay MD [address] [place] [address] Phone: tel: fax: [facility] [place] [address] [place] [phone] fax: Referral ID Status Reason Start Date Expiration Date Visits Re quested Visits Authorized [id number] 1 1 [facility] Work Phone: Summary Purpose Family History No Family History Records FoundUnknown Family Member Name Dates Details Family history of hypertensi on: Father(V17.49, Z82.49) Status:Active Family history of cardiac di sorder: Father(V17.49, Z82.49) Status:Active Family history of diabetes m ellitus: Mother, Father(V18.0, Z83.3) Status:Active Family history of emphysema: Father(V17.6, Z82.5) Status:Active Family history of myocardial infarction: Mother(V17.3, Z82.49) Status:Active Family history of Alzheimer' s disease: Father(V17.2, Z82.0) Status:Active Family history of malignant neoplasm of colon: Father(V16.0, Z80.0) Status:Active Family history of dementia: Father(V17.2, Z81.8) Status:Active Unknown Family Member Name Dates Details Family history of hypertensi on: Father(V17.49, Z82.49) Status:Active Family history of cardiac di sorder: Father(V17.49, Z82.49) Status:Active Family history of diabetes m ellitus: Mother, Father(V18.0, Z83.3) Status:Active Family history of emphysema: Father(V17.6, Z82.5) Status:Active Family history of myocardial infarction: Mother(V17.3, Z82.49) Status:Active Family history of Alzheimer' s disease: Father(V17.2, Z82.0) Status:Active Family history of malignant neoplasm of colon: Father(V16.0, Z80.0) Status:Active Family history of dementia: Father(V17.2, Z81.8) Status:Active Unknown Family Member Name Dates Details Family history of hypertensi on: Father(V17.49, Z82.49) Status:Active Family history of cardiac di sorder: Father(V17.49, Z82.49) Status:Active Family history of diabetes m ellitus: Mother, Father(V18.0, Z83.3) Status:Active Family history of emphysema: Father(V17.6, Z82.5) Status:Active Family history of myocardial infarction: Mother(V17.3, Z82.49) Status:Active Family history of Alzheimer' s disease: Father(V17.2, Z82.0) Status:Active Family history of malignant neoplasm of colon: Father(V16.0, Z80.0) Status:Active Family history of dementia: Father(V17.2, Z81.8) Status:Active Unknown Family Member Name Dates Details Family history of hypertensi on: Father(V17.49, Z82.49) Status:Active Family history of cardiac di sorder: Father(V17.49, Z82.49) Status:Active Family history of diabetes m ellitus: Mother, Father(V18.0, Z83.3) Status:Active Family history of emphysema: Father(V17.6, Z82.5) Status:Active Family history of myocardial infarction: Mother(V17.3, Z82.49) Status:Active Family history of Alzheimer' s disease: Father(V17.2, Z82.0) Status:Active Family history of malignant neoplasm of colon: Father(V16.0, Z80.0) Status:Active Family history of dementia: Father(V17.2, Z81.8) Status:Active Unknown Family Member Name Dates Details Family history of hypertensi on: Father(V17.49, Z82.49) Status:Active Family history of cardiac di sorder: Father(V17.49, Z82.49) Status:Active Family history of diabetes m ellitus: Mother, Father(V18.0, Z83.3) Status:Active Family history of emphysema: Father(V17.6, Z82.5) Status:Active Family history of myocardial infarction: Mother(V17.3, Z82.49) Status:Active Family history of Alzheimer' s disease: Father(V17.2, Z82.0) Status:Active Family history of malignant neoplasm of colon: Father(V16.0, Z80.0) Status:Active Family history of dementia: Father(V17.2, Z81.8) Status:Active Unknown Family Member Name Dates Details Family history of cardiac di sorder: Father(V17.49, Z82.49) Status:Active Family history of diabetes m ellitus: Mother, Father(V18.0, Z83.3) Status:Active Family history of emphysema: Father(V17.6, Z82.5) Status:Active Family history of myocardial infarction: Mother(V17.3, Z82.49) Status:Active Family history of Alzheimer' s disease: Father(V17.2, Z82.0) Status:Active Family history of malignant neoplasm of colon: Father(V16.0, Z80.0) Status:Active Family history of dementia: Father(V17.2, Z81.8) Status:Active Family history of hypertensi on: Father(V17.49, Z82.49) Status:Active Advance Directives No Advanced Directives Records FoundDocuments on File Type Date Recorded Patient Health Advocate Expl anation Advance Directives and Livin g Will 09/14/2020 9:03 AM Documents on File Type Date Recorded Patient Health Advocate Expl anation Advance Directives and Livin g Will 10/30/2020 10:27 PM Latest Code Status on File Code Status Date Activated Date Inactivated Comments Full Code 10/31/2020 12:56 AM 10/31/2020 6:58 PM Date Activated Date Inactivated Comments 10/26/2024 6:01 AM Question Answer Comments Plan of Care: Code Status Discussion Completed Decision Maker: Patient Date Activated Date Inactivated Comments 10/26/2024 6:01 AM Question Answer Comments Plan of Care: Code Status Discussion Completed Decision Maker: Patient Chief Complaint * Patient here today to be seen for follow up ER ([facility]) on 11-20-21 and 11-21-21 ([facility]), for abdomendiscomfort, nausea and chest discomfort. * Patient states at this time is only having epigastric tenderness, no nausea or chest discomfort. 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 * Patient here today to be seen for mid abdomen discomfort, nausea and vomiting. Patient states she did have a BM this morning that was black in color. * Patient was seen in the ER yesterday for chest discomfort. * Patient has appt. with Dr. Mueller this week and he prescribed her Carafate, which patient states ishelping. NPV in the office today for nausea, gagging, feeling full quickly, abdominal pain. No prior EGD, last colon was July 2021. No prior Gastric emptying study. Patient is not able to eat anything due tothe nausea and vomiting, pt is holding water down.Patient here today to be seen for follow up ER d/t chest pain. Patient states ate chili which caused severe heartburn. Patient offers no complaints now and doing well on Pepcid and Omeprazole. Additional Source Comments INFORMATION SOURCE (unrecogn ized section and content) DATE CREATED AUTHOR 09/12/2019 [facility] DATE CREATED AUTHOR AUTHOR'S ORGANIZ ATION 07/08/2021 [facility] DATE CREATED AUTHOR AUTHOR'S ORGANIZ ATION 12/24/2021 [facility] DATE CREATED AUTHOR AUTHOR'S ORGANIZ ATION 12/29/2021 [facility] DATE CREATED AUTHOR AUTHOR'S ORGANIZ ATION 12/29/2021 [facility] DATE CREATED AUTHOR AUTHOR'S ORGANIZ ATION 06/29/2022 [facility] DATE CREATED AUTHOR AUTHOR'S ORGANIZ ATION 10/12/2022 [facility] DATE CREATED AUTHOR AUTHOR'S ORGANIZ ATION 01/13/2024 [facility] DATE CREATED AUTHOR AUTHOR'S ORGANIZ ATION 08/20/2024 [facility] DATE CREATED AUTHOR AUTHOR'S ORGANIZ ATION 09/22/2024 [facility] DATE CREATED AUTHOR AUTHOR'S ORGANIZ ATION 12/20/2024 [facility] DATE CREATED AUTHOR AUTHOR'S ORGANIZ ATION 12/30/2024 [facility] DATE CREATED AUTHOR AUTHOR'S ORGANIZ ATION 01/29/2025 [facility] Reason for Visit (unrecogniz ed section and content) Reason Comments Hemorrhoids Reason Comments Chest Pain Headache Status Reason Specialty Diagnoses / Procedures Referre d By Contact Referred To Contact Diagnoses Chest pain, unspecified type Chest pain Reason Comments Follow-up FU 1 year, patient o ffers no complaints. Patient due for mammogram. Reason Comments Med Management Shoulder Pain right Reason Comments Pain Specialty Diagnoses / Procedures Referred By Neil t Referred To Contact Orthopaedic Surgery / Orthopedic Surgery Diagnoses Chronic right shoulder pain Catrachita Terry, COMMISSIONED FIRE OFFICER-BALANCE RECESSER [address] [facility] [place] [address] Phone: tel: fax: Referral ID Status Reason Start Date Expiration Date Visits Requested Visits Authorized [id number] Authorized Specialty Services Required 4 03/18/2025 1 1 Reason Comments Shoulder Pain Right shoulder Reason Comments Pain Patient here with hu sband,Jose A. Complaining of right shoulder pain x 4-5 months. Specialty Diagnoses / Procedures Referred By Neil bernstein Referred To Contact Orthopaedic Surgery / Orthopedic Surgery Diagnoses Acute pain of right shoulder Catrachita Terry, COMMISSIONED FIRE OFFICER-BALANCE RECESSER [address] [facility] [place] [address] Phone: tel: fax: Referral ID Status Reason Start Date Expiration Date Visits Requested Visits Authorized [id number] Authorized Specialty Services Required 07/31/2024 07/31/2025 1 1 Reason Comments Follow-up Patient here with Jose A del rosario. Complaining of right shoulder pain x 4- 5 months. Reason Comments pt here for 6 month med check Pt here fo r surgical clearance - Dr Garay rotator cuff Reason Comments Follow-up Patient here with Jose A del rosario. Complaining of right shoulder pain x 4- 5 months.Sx date 8-43-50Z-rays 08-14-Inj 1224Last mri 07-31-24 Post-op Patient here with Jose A del rosario. Complaining of right shoulder pain x 4-5 months.Sx date 3-52-09P-rays 08-14-24Inj 12-24Last mri 07-31-24 Reason Comments Post-op RIGHT ROTATOR CUFF R EPAIR DONE ON 10/26/24 Reason Comments Post-op RIGHT ROTATOR CUFF R EPAIR DONE ON 10/26/24 Scheduled Active and Recently Administ ered Medications (unrecognized section and content) Medication Order 09/12/2020 09/13/2020 09/14/2020 ondansetron (ZOFRAN-ODT) disintegrating tablet 4 mg (COMPLETED) 4 mg, Oral, Once, On Sat09/14/20 at 0905, For 1 dose, Orally disintegrating tablet: Open blister pack and place tablet on the tongue; tablet is formulated to dissolve on the tongue without water; do not split tablet. Formulation requires tablet remain in sealed package until immediately prior to dose being administered. 907 (Given - Provid er: Francesco Guy RN) traMADoL (ULTRAM) tablet 50 mg (COMPLETED) 50 mg, Oral, Once, On Sat09/14/20 at 0905, For 1 dose 0931 (Given - Provid er: Francesco Guy RN) Scheduled Medication Order 10/29/2020 10/30/2020 10/31/2020 acetaminophen (TYLENOL) tablet 975 mg (COMPLETED) 975 mg, Oral, Once, On 10/30/20 at 2200, For 1 dose 2200 (Given - Provider: Katerine Bansal RN) aspirin EC tablet 81 mg 81 mg, Oral, Daily, First dose on Sat10/31/20 at 0900, DO NOT CRUSH OR CHEW. 0912 (Given - Provid er: Beth Hearn RN) atorvastatin (LIPITOR) tablet 40 mg 40 mg, Oral, Nightly, First dose on Sat10/31/20 at 0145 0116 (Given - Provid er: Evy Allen RN) carvediloL (COREG) tablet 12.5 mg 12.5 mg, Oral, 2 times daily, First dose on Sat10/31/20 at 0900, Give carvedilol with food to reduce risk of hypotension / dizziness. Separate from admin of VIVI inhibitors by two hours. 0912 (Given - Provid er: Beth Hearn RN) escitalopram oxalate (LEXAPRO) tablet 20 mg 20 mg, Oral, Every evening, First dose on Sat10/31/20 at 2100 furosemide (LASIX) tablet 40 mg 40 mg, Oral, Daily, First dose on Sat10/31/20 at 0900 0912 (Given - Provid er: Beth Hearn RN) heparin (porcine) injection 5,000 Units 5,000 Units, Subcutaneous, Every 8 hours scheduled, First dose on Sat10/31/20 at 0145, Notify physician if patient refuses. 0116 (Given - Provid er: Evy Allen RN)0600 (Hold - Provider: Evy Allen RN - Reason: Other - Comment: gave last dose at 0116. notified pharmacy.) lisinopriL (PRINIVIL,ZESTRIL) tablet 2.5 mg 2.5 mg, Oral, Daily, First dose on Sat10/31/20 at 0900 0911 (Given - Provid er: Beth Hearn RN) morphine syringe 4 mg (COMPLETED) 4 mg, Intravenous, Once, On 10/30/20 at 2200, For 1 dose 2202 (Given - Provider: Katerine Bansal, CIPRIANO) ondansetron (ZOFRAN) injection 4 mg (COMPLETED) 4 mg, Intravenous, Once, On Sat10/30/20 at 2120, For 1 dose 2138 (Given - Provider: Katerine Bansal, CIPRIANO) PRN Medication Order 10/29/2020 10/30/2020 10/31/2020 aluminum-magnesium hydroxide-simethicone (MAALOX PLUS) 200-200-20 mg/5 mL suspension 30 mL 30 mL, Oral, Every 4 hours PRN, indigestion, heartburn, Starting on Sat10/31/20 at 0056 iopamidoL (ISOVUE-370) 76 % injection 75 mL (COMPLETED) 75 mL, Intravenous, Once in imaging, contrast, Per mac artist (Radiology), Starting on Sat10/30/20 at 2317, For 1 dose 2349 (Contrast Administered - Provider: Natasha Barragan, TECHNOLOGIST) LORazepam (ATIVAN) tablet 1 mg 1 mg, Oral, Daily PRN, anxiety, Starting on Sat10/31/20 at 0051 nitroGLYCERIN (NITROSTAT) SL tablet 0.4 mg 0.4 mg, Sublingual, Every 5 min PRN, chest pain, Starting on Sat10/31/20 at 0056, For 3 doses, For chest pain unrelieved by Nitroglycerin or recurrent chest pain, CALL PHYSICIAN DO NOT CRUSH OR CHEW. pneumococcal vaccine (PNU-IMMUNE 23) injection 0.5 mL 0.5 mL, Intramuscular, Prior To Discharge, administer vaccine prior to discharge, Starting on Sat10/31/20 at 0157, For 1 dose sodium chloride (PF) (NS) 0.9 % contrast line flush 10 mL (COMPLETED) 10 mL, Intravenous, Once in imaging, contrast, Per mac artist (Radiology) for line patency check prior to contrast administration, Starting on Sat10/30/20 at 2317, For 1 dose 2350 (Given - Provider: Natasha Barragan, TECHNOLOGIST) sodium chloride (PF) (NS) 0.9 % contrast line flush 80 mL (COMPLETED) 80 mL, Intravenous, Once in imaging, contrast, Per mac artist (Radiology), Starting on [place] 10/30/20 at 2317, For 1 dose, 30 mL BEFORE contrast administration 50 mL AFTER contrast administration 2350 (Given - Provider: Natasha Barragan, TECHNOLOGIST) Scheduled Medication Order 10/24/2024 10/25/2024 10/26/2024 ceFAZolin (Ancef) 2 g in dextrose (iso) IV 50 mL (COMPLETED) 2 g, intravenous, at 100 mL/hr, Administer over 30 Minutes, Once, On Sat10/26/24 at 0630, For 1 dose, Preprocedure, Administer within 60 minutes prior to incision. Duplex bag - activate before hanging., Dosing of this medication varies based on severity of illness. Does this patient have sepsis or concern for sepsis (probable or documented infection plus systemic manifestations of infection)? No, Suspected Indication (Select all that apply): Surgical Prophylaxis, Indications: Surgical Prophylaxis 0746 (New Bag - Prov ider: Lexy Pfeiffer RN)1010 (Stopped - Provider: Lexy Pfeiffer RN) midazolam (Versed) injection 2 mg (COMPLETED) 2 mg, intravenous, Once, On Sat10/26/24 at 0745, For 1 dose, Preprocedure 0722 (Given - Provid er: Lexy Pfeiffer RN) Continuous Medication Order 10/24/2024 10/25/2024 10/26/2024 lactated Ringer's infusion 100 mL/hr, intravenous, Continuous, Starting on Sat10/26/24 at 0745, For 1 day, Preprocedure 0722 (New Bag - Prov ider: Lexy Pfeiffer RN)0749 (Continued by Anesthesia - Provider: Mundo Bruno MD) lactated Ringer's infusion 100 mL/hr, intravenous, Continuous, Starting on Sat10/26/24 at 1030, For 1 day, Recovery (only) 1030 (Due) PRN Medication Order 10/24/2024 10/25/2024 10/26/2024 EPINEPHrine (Adrenalin) 1 mg in lactated Ringer's 3,000 mL irrigation (CANCELED) As needed, Starting on Sat10/26/24 at 0856, Intraprocedure 0840 (Given - Provid er: Segun Garay MD)0856 (Given - Provider: Segun Garay MD) HYDROmorphone (Dilaudid) injection 0.5 mg 0.5 mg, intravenous, Every 5 min PRN, pain mild (1-3), first line, Starting on Sat10/26/24 at 1008, Recovery (only), Max total of 4 mg regardless of dose. HYDROmorphone (Dilaudid) injection 0.5 mg 0.5 mg, intravenous, Every 5 min PRN, pain moderate (4-6), first line, Starting on Sat10/26/24 at 1008, Recovery (only), Max total of 4 mg regardless of dose. HYDROmorphone (Dilaudid) injection 0.5 mg 0.5 mg, intravenous, Every 5 min PRN, pain severe (7-10), first line, Starting on Sat10/26/24 at 1008, Recovery (only), Max total of 4 mg regardless of dose. 1012 (Given - Provid er: Lexy Pfeiffer RN)1017 (Given - Provider: Lexy Pfeiffer RN) metoclopramide (Reglan) injection 10 mg 10 mg, intravenous, Once as needed, nausea/vomiting, second line, Starting on Sat10/26/24 at 1008, For 1 dose, Recovery (only) ondansetron (Zofran) injection 4 mg 4 mg, intravenous, Once as needed, nausea/vomiting, first line, Starting on Sat10/26/24 at 1008, For 1 dose, Recovery (only), When administering via IV Push, administer over 3-5 minutes. oxyCODONE (Roxicodone) immediate release tablet 5 mg 5 mg, oral, Every 4 hours PRN, pain moderate (4-6), second line, Starting on Sat10/26/24 at 1008, Recovery (only), When able to take oral medications., If ordered PRN for pain, nurse is permitted to administer this medication for higher pain scores based on patient preference? Yes oxyCODONE-acetaminophen (Percocet) 5-325 mg per tablet 1 tablet 1 tablet, oral, Every 6 hours PRN, pain severe (7-10), first line, Starting on Sat10/26/24 at 1101, For 28 doses, If ordered PRN for pain, nurse is permitted to administer this medication for higher pain scores based on patient preference? Yes oxygen (O2) therapy inhalation, Continuous PRN - O2/gases, other, Starting on Sat10/26/24 at 1008, Recovery (only), Device: Nasal Cannula, Rate in liters per minute: Other, Custom Value: 1-6 LPM, Keep O2 Sat Above: 92% Care Teams (unrecognized sec tion and content) Outsole Handler Relationship Specialty Start Date End Date Gabe Mcpherson PA-C [address] [facility] [place] [address] PCP - General 07/20/21 Gabe Mcpherson PA-C [address] [facility] [place] [address] PCP - [facility] Medicaid PCP 07/28/22 Outsole Handler Relationship Specialty Start Date End Date Catrachita Terry APRN-BALANCE RECESSER [address] [facility] [place] [address] PCP - General Family Medicine 03/18/24 Outsole Handler Relationship Specialty Start Date End Date 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 [address] [facility] [place] [address] PCP - General Family Medicine 03/18/24 Outsole Handler Relationship Specialty Start Date End Date Catrachita Terry APRN-BALANCE RECESSER [address] [facility] [place] [address] PCP - General Family Medicine 03/18/24 Outsole Handler Relationship Specialty Start Date End Date 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 [address] [facility] [place] [address] PCP - General Family Medicine 03/18/24 Outsole Handler Relationship Specialty Start Date End Date 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 [address] [facility] [place] [address] PCP - General Family Medicine 03/18/24 Outsole Handler Relationship Specialty Start Date End Date 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 [address] [facility] [place] [address] PCP - General Family Medicine 03/18/24 Outsole Handler Relationship Specialty Start Date End Date 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 [address] [facility] [place] [address] PCP - General Family Medicine 03/18/24 Pavithra Maria, COMMISSIONED FIRE OFFICER-BALANCE RECESSER PCP - [facility] PCP 05/30/24 Outsole Handler Relationship Specialty Start Date End Date 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 [address] [facility] [place] [address] PCP - General Family Medicine 03/18/24 Pavithra Maria, COMMISSIONED FIRE OFFICER-BALANCE RECESSER PCP - [facility] PCP 05/30/24 Outsole Handler Relationship Specialty Start Date End Date 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 [address] [facility] [place] [address] PCP - General Family Medicine 03/18/24 Pavithra Maria COMMISSIONED FIRE OFFICER-BALANCE RECESSER PCP - [facility] PCP 05/30/24 Outsole Handler Relationship Specialty Start Date End Date 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 PCP - General Family Medicine 03/18/24 Pavithra Maria COMMISSIONED FIRE OFFICER-BALANCE RECESSER PCP - [facility] PCP 05/30/24 Outsole Handler Relationship Specialty Start Date End Date Catrachita Terry, COMMISSIONED FIRE OFFICER-BALANCE RECESSER PCP - General Family Medicine 03/18/24 Pavithra Maria, COMMISSIONED FIRE OFFICER-BALANCE RECESSER PCP - [facility] PCP 05/30/24 Outsole Handler Relationship Specialty Start Date End Date Catrachita Terry, COMMISSIONED FIRE OFFICER-BALANCE RECESSER PCP - General Family Medicine 03/18/24 Pavithra Maria, COMMISSIONED FIRE OFFICER-BALANCE RECESSER PCP - [facility] PCP 05/30/24 Outsole Handler Relationship Specialty Start Date End Date 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 [address] [facility] [address] [place] [address] PCP - General Family Medicine 03/18/24 Pavithra Maria, COMMISSIONED FIRE OFFICER-BALANCE RECESSER PCP - [facility] PCP 05/30/24 Outsole Handler Relationship Specialty Start Date End Date 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 [address] [facility], [address] [place] [address] PCP - General Family Medicine 03/18/24 Pavithra Maria COMMISSIONED FIRE OFFICER-BALANCE RECESSER PCP - [facility] PCP 05/30/24 Outsole Handler Relationship Specialty Start Date End Date 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 [address] [facility], [address] [place] [id number] PCP - General Family Medicine 03/18/24 Pavithra Maria COMMISSIONED FIRE OFFICER-BALANCE RECESSER PCP - [facility] PCP 05/30/24 Outsole Handler Relationship Specialty Start Date End Date Catrachita Terry APRN-BALANCE RECESSER [address] [facility], [place] [address] PCP - General Family Medicine 03/18/24 Pavithra Maria COMMISSIONED FIRE OFFICER-BALANCE RECESSER PCP - [facility] PCP 05/30/24 Outsole Handler Relationship Specialty Start Date End Date 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 [address] [facility], [place] [id number] PCP - General Family Medicine 03/18/24 Pavithra Maria APRN-BALANCE RECESSER PCP - [facility] PCP 05/30/24 Pavithra Maria APRN-BALANCE RECESSER PCP - [facility] Medicaid PCP 10/27/24 Outsole Handler Relationship Specialty Start Date End Date Catrachita Terry APRN-BALANCE RECESSER [address] [facility], [place] [id number] PCP - General Family Medicine 03/18/24 Pavithra Maria APRN-BALANCE RECESSER PCP - [facility] PCP 05/30/24 Pavithra Maria COMMISSIONED FIRE OFFICER-BALANCE RECESSER PCP - [facility] Medicaid PCP 10/27/24 FOR RECORDS PERTAINING TO PATIENTS WHO ARE OR HAVE BEEN ENROLLED IN A CHEMICAL DEPENDENCY/SUBSTANCEABUSE PROGRAM, SOME INFORMATION MAY BE OMITTED. This clinical summary was aggregated from multiple sources. Caution should be exercised in using it in the provision of clinical care. This summary normalizes information from multiple sources, and as a consequence, information in this document may materially change the coding, format and clinical context of patient data. In addition, data may be omitted in some cases. CLINICAL DECISIONS SHOULD BE BASED ON THE PRIMARY CLINICAL RECORDS. [facility] [employer] [facility]. provides no warranty or guarantee of the accuracy or completeness of information in this document.
--- NOTE | 2025-04-16 02:20 | EDS_ITS ---
HPI History of Present Illness Chief Complaint: Abd Pain Narrative Narrative: Patient was seen and examined after presenting to ED for abdominal pain she states that she ate some asparagus and feels like she is blocked up. Denies having any fevers or chills no chest pain or pressure states that she did have a history of an ND about requiring intervention 4 years ago. [facility] Medical History Chronic pain Pancreatitis Irregular heart beat Muscle spasm Acute low back pain Tobacco abuse counseling Preventative health care Colon cancer screening Panic disorder Generalized anxiety disorder Major depressive disorder, recurrent, moderate Depression Cervical cancer Left bundle branch block (LBBB) Nicotine dependence Non-ischemic cardiomyopathy History of non-ST elevation myocardial infarction (NSTEMI) (09/15/20) HFrEF (heart failure with reduced ejection fraction) (09/15/20) Essential (primary) hypertension History of cervical cancer History of pancreatitis Constipation COPD with asthma Obesity HLD (hyperlipidemia) Acute respiratory failure with hypoxia and hypercapnia (09/15/20) COPD (chronic obstructive pulmonary disease) Home Medications ?Medication ?Instructions ?Recorded ?Last Taken ?Type aspirin 81 mg chewable tablet 81 mg PO DAILY@0800 #30 tabs 09/19/20 Unknown Rx albuterol sulfate 90 mcg/actuation 2 puff inhalation Q 4H PRN PRN 10/04/20 Unknown Rx aerosol inhaler Cough #8.5 grams abwkhbyotf-ttlfdiiyomnbf-blugymwv 1 cap PO TID PRN kevin aida headache 01/06/21 Unknown Rx 50 mg-300 mg-40 mg capsule #20 caps (Fioricet) ondansetron 4 mg disintegrating 8 mg (2 x 4 mg) PO Q8H PRN PRN 08/20/21 Unknown Rx tablet Nausea #16 tabs omeprazole 40 mg capsule,delayed 40 mg PO DAILY Unknown History release carvedilol 25 mg tablet 25 mg PO BID #180 tabs 10/16 Unknown Rx furosemide 40 mg tablet 40 mg PO DAILY #90 tabs 09/28 Unknown Rx dapagliflozin propanediol 10 mg 10 mg PO DAILY #90 TAB LETS 12/24/24 Unknown Rx tablet (Farxiga) spironolactone 25 mg tablet 12.5 mg (1/2 x 25 mg) PO D AILY #45 12/24/24 Unknown Rx TABLETS sacubitril 49 mg-valsartan 51 mg 1 tab PO BID #180 tab s 01/01/25 Unknown Rx tablet (Entresto) ondansetron 4 mg disintegrating 4 mg PO Q8H PRN PRN Na usea #30 tabs 04/16/25 Unknown Rx tablet Allergy/AdvReac Type Severity Reaction Status Date / Time ketorolac (From Toradol) Allergy Shortness Verified 04/16/25 01:12 of breath naproxen (From Naprosyn) Allergy Shortness Verified 04/16/25 01:12 of breath ubrogepant (From Ubrelvy) AdvReac Sick Verified 04/16/25 01:12 Feeling Family History Mother Heart disease Hypertension Diabetes Father Heart disease Other Anxiety Asthma Surgical History History of left heart catheterization (09/19/20) History of cholecystectomy H/O: hysterectomy Social History household members: spouse
--- NOTE | 2025-04-16 02:20 | EX.ED.DYSGE1 ---
HPI History of Present Illness Chief Complaint: Abd Pain Narrative Narrative: Patient was seen and examined after presenting to ED for abdominal pain she states that she ate some asparagus and feels like she is blocked up. Denies having any fevers or chills no chest pain or pressure states that she did have a history of an [place] about requiring intervention 4 years ago. [facility] Medical History Chronic pain Pancreatitis Irregular heart beat Muscle spasm Acute low back pain Tobacco abuse counseling Preventative health care Colon cancer screening Panic disorder Generalized anxiety disorder Major depressive disorder, recurrent, moderate Depression Cervical cancer Left bundle branch block (LBBB) Nicotine dependence Non-ischemic cardiomyopathy History of non-ST elevation myocardial infarction (NSTEMI) (09/15/20) HFrEF (heart failure with reduced ejection fraction) (09/15/20) Essential (primary) hypertension History of cervical cancer History of pancreatitis Constipation COPD with asthma Obesity HLD (hyperlipidemia) Acute respiratory failure with hypoxia and hypercapnia (09/15/20) COPD (chronic obstructive pulmonary disease) Home Medications ?Medication ?Instructions ?Recorded ?Last Taken ?Type aspirin 81 mg chewable tablet 81 mg PO DAILY@0800 #30 tabs 09/19/20 Unknown Rx albuterol sulfate 90 mcg/actuation 2 puff inhalation Q4H PRN PRN 10/04/20 Unknown Rx aerosol inhaler Cough #8.5 grams emkttcslce-wpqzqxdwkgqxr-trphwqdk 1 cap PO TID PRN migraine headache 01/06/21 Unknown Rx 50 mg-300 mg-40 mg capsule #20 caps (Fioricet) ondansetron 4 mg disintegrating 8 mg (2 x 4 mg) PO Q8H PRN PRN 08/20/21 Unknown Rx tablet Nausea #16 tabs omeprazole 40 mg capsule,delayed 40 mg PO DAILY 08/15/22 Unknown History release carvedilol 25 mg tablet 25 mg PO BID #180 tabs 10/16/24 Unknown Rx furosemide 40 mg tablet 40 mg PO DAILY #90 tabs 10/16/24 Unknown Rx dapagliflozin propanediol 10 mg 10 mg PO DAILY #90 TABLETS 12/24/24 Unknown Rx tablet (Farxiga) spironolactone 25 mg tablet 12.5 mg (1/2 x 25 mg) PO DAILY #45 08/28/25 Unknown Rx TABLETS sacubitril 49 mg-valsartan 51 mg 1 tab PO BID #180 tabs 01/01/25 Unknown Rx tablet (Entresto) ondansetron 4 mg disintegrating 4 mg PO Q8H PRN PRN Nausea #30 tabs 04/16/25 Unknown Rx tablet Allergy/AdvReac Type Severity Reaction Status Date / Time ketorolac (From Toradol) Allergy Shortness Verified 04/16/25 01:12 of breath naproxen (From Naprosyn) Allergy Shortness Verified 04/16/25 01:12 of breath ubrogepant (From Ubrelvy) AdvReac Sick Verified 04/16/25 01:12 Feeling Family History Mother Heart disease Hypertension Diabetes Father Heart disease Other Anxiety Asthma Surgical History History of left heart catheterization (09/19/20) History of cholecystectomy H/O: hysterectomy Social History household members: spouse Smoking Status: Current every day smoker tobacco type: cigarettes alcohol intake: never substance use type: does not use what type of physical activity do you participate in: none ROS ROS ED ROS Narrative Pertinent Positives: Abdominal pain nausea Pertinent Negatives: Fevers chills chest pain pressure shortness of breath black or bloody stool diarrhea urinary symptoms The remainder of review of systems negative unless otherwise stated in the HPI above. Systems reviewed including constitutional, psychiatric, cardiovascular, respiratory, integument, HENT, gastrointestinal. EXAM Physical Exam Narrative Exam Narrative: Patient is afebrile hemodynamically stable does not appear toxic or in distress. Patient is normocephalic and atraumatic normal heart and lung sounds. Abdomen is soft has tenderness in the suprapubic region. No overlying cellulitis or skin changes no palpable pulsatile mass no crepitus no hernias noted she has intact MSPs in her extremities Const Vital Signs: 04/16/25 01:08 04/16/25 02:47 04/16/25 03:00 Temperature 98.2 F Temperature Source Oral Pulse Rate 88 70 62 Respiratory Rate 18 17 15 Blood Pressure 151/105 H Blood Pressure Mean 120 Pulse Ox 96 Oxygen Delivery Method Room Air 04/16/25 03:12 04/16/25 03:15 04/16/25 03:30 Temperature Temperature Source Pulse Rate 70 77 71 Respiratory Rate 13 12 14 Blood Pressure 121/81 H 124/93 H 113/87 H Blood Pressure Mean 93 104 97 Pulse Ox Oxygen Delivery Method 04/16/25 03:45 Temperature Temperature Source Pulse Rate 75 Respiratory Rate 13 Blood Pressure 135/95 H Blood Pressure Mean 108 Pulse Ox Oxygen Delivery Method MDM MDM MDM Narrative Medical decision making narrative: Nursing notes, triage notes, available previous documentation, and vital signs were reviewed. Any discrepancies noted were addressed. Differential Diagnoses: Low suspicion for ACS or aortic etiology or PE need to evaluate for appendicitis or bowel nephritis kidney stones diverticular disease bowel obstruction lower suspicion for mesenteric ischemia Interventions: Zofran morphine Fluids Given: 1 L normal saline Labs Reviewed: No leukocytosis leukopenia or anemia platelets are 252 no significant electrolyte abnormality or transaminitis troponin is 6 lipase is 24 urine with 1000 glucose 50 ketones 50 blood no evidence of infection. Delta troponin was 8 Imaging Reviewed: Personally reviewed and interpreted by me: CT abdomen and pelvis showing colonic diverticulosis with diffuse wall thickening of the sigmoid and some of the descending colon possibly spastic changes there is no diverticulitis when I reviewed is seems like she does have some stool burden as well EKG: Normal sinus rhythm rate of [address] segment elevation. EKG interpretation is noted and agreed to in the EMR. The interpretation of this patient's EKG contributed directly to the care and management of this patient. Previous Documentation Reviewed: None available or applicable at this time. ED Course: Patient presenting with symptoms as stated above patient underwent lab work pending a delta troponin so far labs are otherwise fairly unremarkable we are however waiting on the CT of her abdomen and pelvis. 0412: Patient CT showing the findings as stated above no other acute pathology noted. Patient is nauseated though. Possible that this is more of a viral picture as well. This point in time she is hemodynamically stable she is stable for discharge home. Return precautions follow-up recommendations provided will provide her with Zofran prescription as well This note was made utilizing voice recognition software. All attempts were made to correct spelling or other errors prior to note completion. However, due to the fast-paced nature of emergency medicine, some errors may still be present. Lab Data Labs: Laboratory Results - last 24 hr 04/16/25 04/16/25 04/16/25 01:14 01:26 03:20 WBC 5.6 RBC 4.27 Hgb 13.7 Hct 40.7 MCV 95.3 MCH 32.1 H MCHC 33.7 RDW Std Deviation 47.0 H RDW Coeff of Tony 13.3 Plt Count 252 MPV 10.6 Immature Gran % (Auto) 0.400 Neut % (Auto) 51.6 Lymph % (Auto) 40.2 [place] % (Auto) 7.2 Eos % (Auto) 0.2 Baso % (Auto) 0.4 Absolute Neuts (auto) 2.9 Absolute Lymphs (auto) 2.24 Nucleated RBC % 0 Sodium 140 Potassium 3.7 Chloride 104 Carbon Dioxide 21.6 Anion Gap 14 BUN 13 Creatinine 0.62 L Estim Creat Clear Calc 92.59 Est GFR (MDRD) Non-Af 103 BUN/Creatinine Ratio 21.0 H Glucose 170 H Lactic Acid 1.0 Calcium 9.0 Total Bilirubin 0.23 AST 17 ALT 8 Alkaline Phosphatase 74 Troponin T High Sens 6 Troponin T Hi Sens 2 Hr 8 Total Protein 7.0 Albumin 4.2 Globulin 2.8 Albumin/Globulin Ratio 1.5 Lipase 24 Urine Color Yellow Urine Clarity Clear Urine pH 6.0 Ur Specific [place] 1.020 Urine Protein 30 H Urine Glucose (UA) 1000 H Urine Ketones 50 H Urine Occult Blood 50 H Urine Nitrite Negative Urine Bilirubin Negative Urine Urobilinogen Normal Ur Leukocyte Esterase Negative Urine RBC 0-5 SEEN Urine WBC 0-5 SEEN Ur Squamous Epith Cells 0-5 SEEN Urine Bacteria 0 SEEN Urine Mucus 0 SEEN Radiography Diagnostic Testing: Clinical Impression(s) from Imaging Studies Abdomen/Pelvis CT 04/16/25 01:47 IMPRESSION: Colonic diverticulosis with diffuse wall thickening of the sigmoid and to less extent descending colon, possibly spastic changes. No diverticulitis. Otherwise, no acute pelvi-abdominal abnormalities, collections or free air. Reading [facility] [id number] Discharge Plan Triage Chief Complaint: Abd Pain ED Provider: Magno Leonard Dx/Rx/DC Orders Clinical Impression: Abdominal pain of unknown etiology, Nausea Instructions: ED Abdominal Pain Unkn Cause Fem Prescriptions: New ondansetron 4 mg tablet,disintegrating 4 mg PO Q8H PRN PRN (Reason: Nausea) Qty: 30 0RF No Action albuterol sulfate 90 mcg/actuation HFA aerosol inhaler 2 puff INHALATION Q4H PRN PRN (Reason: Cough) Qty: 8.5 1RF omeprazole 40 mg capsule,delayed release(DR/EC) 40 mg PO DAILY aspirin 81 mg Tablet,Chewable 81 mg PO DAILY@0800 Qty: 30 11RF ondansetron 4 MG tablet 8 mg PO Q8H PRN PRN (Reason: Nausea) Qty: 16 0RF [id number]-[id number]-zoqg [Fioricet] 50-300-40 mg capsule 1 cap PO TID PRN (Reason: migraine headache) Qty: 20 0RF carvedilol 25 mg tablet 25 mg PO BID Qty: 180 3RF furosemide 40 mg tablet 40 mg PO DAILY Qty: 90 3RF Farxiga 10 mg tablet 10 mg PO DAILY Qty: 90 3RF spironolactone 25 mg tablet 12.5 mg PO DAILY Qty: 45 3RF Entresto 49-51 mg tablet 1 tab PO BID Qty: 180 3RF Primary Care Provider: Care Physician,No Primary Referrals: Care Physician,No Primary [Primary Care Provider, Medical] Activity Restrictions/Additional Instructions: You need to follow-up with your primary care doctor if having worsening symptoms do not hesitate to return Print Language: Chinese Disposition Disposition: Home, Self Care
[2025-04-16 02:25] LABS: Estimated Creatinine Clearance 92.59 ml/min (50-250)
[2025-04-16 03:56] LABS: Troponin T High Sens 2 HR 8 ng/L (<=14)
== END 2025-04-16 04:29 | disposition home or self-care (01) ==
PROVIDERS: Emergency Provider Specialist/Technologist Athletic Trainer; Visit Provider Specialist/Technologist Athletic Trainer
DX: R10.8A3 Suprapubic tenderness (principal); I11.0 Hypertensive heart disease with heart failure; I50.22 Chronic systolic (congestive) heart failure; R11.0 Nausea; F17.210 Nicotine dependence, cigarettes, uncomplicated; Z79.82 Long term (current) use of aspirin; Z79.899 Other long term (current) drug therapy
CPT/HCPCS: 74177; 80053; 81001; 83605; 83690; 84484; 85025; 93005; 96361; 96374; 96375; 99285; Q9967; A4216; J2405